=== PATIENT | female | born 1995 | race Caucasian/White ===

== ENCOUNTER 2018-04-02 11:35 | Outpatient (CLI) | payer MEDICAID, SELFPAY ==
--- NOTE | 2018-04-02 11:35 | DT_ITS ---
This patient was seen during an EMR downtime March 28, 2018 - April 04, 2018. This patient may have a combination of paper and electronic documentation or all paper documentation. All documentation is viewable within the e-chart portion of [employer] for each patient visit.
[2018-04-02 12:42] LABS: ROM Internal Control Test YES-OK TO RESULT pt. (Internal QC)
[2018-04-02 12:43] LABS: ROM Patient Test Negative (Negative)
== END 2018-04-02 12:55 | disposition home or self-care (01) ==
LOC: WPOUT 12:17 → WP 12:19
PROVIDERS: Visit Provider Obstetrics & Gynecology
DX: O47.9 False labor, unspecified (principal); Z3A.00 Weeks of gestation of pregnancy not specified
CPT/HCPCS: 59025; 59050; 84112; 99218; G0378

== ENCOUNTER 2018-05-29 17:40 | Inpatient (IN) | payer MEDICAID, SELFPAY ==
[2018-05-29 17:55] VITALS: BMI 28.7
[2018-05-29] MEDS: Lactated Ringers 1,000 ML 50 ML IV (18:05)
[2018-05-29 18:23] LABS: Hematocrit 35.9 % (37-47); Hemoglobin 12.2 g/dl (12.0-15.0); Mean Corpuscular Hgb 30.2 pg (27.0-32.0); Mean Corpuscular Volume 88.9 fL (81-99); Mean Platelet Vol. 11.5 fl (6.2-12.0); Platelet Count 175 K/mm3 (150-450); RBC Distribution Width CV 13.4 % (11.6-14.6); RBC Distribution Width SD 43.6 fl (35.1-43.9); Red Blood Count 4.04 M/mm3 (4.2-5.4); White Blood Count 7.8 K/mm3 (4.4-11.0)
[2018-05-29 18:24] LABS: Scan Indicated on CBC? Y/N NO
--- NOTE | 2018-05-29 19:11 | PCM.HP.OB ---
- Problem List (1) PROM (premature rupture of membranes) Status: Acute Qualifiers: PROM onset of labor timing: onset of labor within 24 hours of rupture PROM gestational age: full term Qualified Code(s): O42.02 - Full-term premature rupture of membranes, onset of labor within 24 hours of rupture History Date of Admission: 05/29/18 Final MEGAN: 06/07/18 Gestational age: 38 Weeks and 5 Days History of this : This is a 22 year-old, G [], P [], at 38 weeks gestational age. Allergies No Known Allergies Allergy (Unverified 05/29/18 17:55) Home Medications: Home Medications Doxylamine Succinate [Unisom] 25 mg PO QHS 05/29/18 Vits [Prenatabs FA ] 1 tab PO DAILY 05/29/18 Smoking Status: Former smoker Alcohol: None Substance Use Type: Marijuana - + tox screen at beginning of , most recent urine tox in 3rd trimester was negative Number of Fetus(es): 1 Heart Tracing: Baseline 140, moderate variability, + accels, no decels TOCO Analysis: Irregular ctx, few mildly palpable q 3-20 minutes History Past Pregnancies: Past Pregnancies Delivery Date Name GA/Weeks Outcome Route Weight Infant Gender Labor Length Anesthesia Delivery Location Provider FOB Labs: A+, Abd Neg, Rubella Immune, Hep B Neg, HIV NR, RPR NR, H/H = 12.5/38.1, GBS POSITIVE, Urine Tox + cannabinoid in 1st trimester--> negative in 3rd trimester, GC/CT = Neg/Neg, urine CCMS = Neg, TSH = 2.370 Expected Delivery Method: Spontaneous Vaginal Describe any other labor & delivery plans:: Possible epidural, patient considering Nitrous Oxide also Number of Visits: 10 Review of Systems Constitutional: Denies: Chills, Fever, Weight Change HEENT: Denies: Head Aches, Sinus Congestion, Sinus Drainage Cardiovascular: Denies: Chest Pain, Palpitations Respiratory: Denies: Cough, Shortness of breath at rest, Sputum production Gastrointestinal: Denies: Abdominal Pain, Nausea, Vomiting Genitourinary: Denies: Dysuria Gynecological: Reports: Vaginal discharge - Reports gush of clear fluid at 5:00pm Musculoskeletal: Denies: Joint Pain, Joint Tenderness Skin: Denies: Rash, Wounds Neurological: Denies: Numbness, Tingling, Focal weakness Psychiatric: Denies: Anxiety, Depression, Homicidal Ideations, Suicidal Ideations Hematologic/ Lymphatic: Denies: Easy Bruising, Easy Bleeding Physical Exam Vitals: See nursing note for vitals - patient is normotensive and afebrile at this time General: Alert, Oriented x3, No apparent distress HEENT: Atraumatic, Normocephalic. Negative for: Thyromegaly, Lymphadenopathy Cardiovascular: Regular rate, Regular Rhythm Lungs: Normal air movement Abdomen: Soft, Non Tender, Gravid - EFW = 7#, likely baby is OP position Neurological: Deep Tendon Reflexes 2+/4 and Symmetrical, Neuro grossly intact SERVICE STATION MANAGER: Normal external genitalia. Negative for: Vulvar lesions Estimated gestational size: Appropriate for gestational size Presentation: Cephalic - No BOW felt on exam Cervix Dilation (cm): 2 Station: -2 Effacement (%): 80 Assessment/Plan All Active Problems PROM (premature rupture of membranes) (Acute) This is a 22 year-old, G [2], P [1], at 38.5 weeks gestational age, PROM, GBS positive status, Category I FHT. P: 1) Admit patient - IV started, admission bloodwork drawn, PCN abx prophylaxis for GBS positive status started 2) Encourage ambulation, shower and position changes to facilitate labor progression 3) Consider initiation of IV pitocin for labor augmentation once adequate 2 doses of PCN abx received 4) Dr. Asif IGLESIAS collaborating OB aware of admission and patient status 5) Anticipate Angeline Dan APRN-CNM
--- NOTE | 2018-05-29 19:22 | HP.PCM_ITS ---
- Problem List (1) PROM (premature rupture of membranes) Status: Acute Qualifiers: PROM onset of labor timing: onset of labor within 24 hours of rupture PROM gestational age: full term Qualified Code(s): O42.02 - Full-term premature rupture of membranes, onset of labor within 24 hours of rupture History Date of Admission: 05/29/18 Final MEGAN: 06/07/18 Gestational age: 38 Weeks and 5 Days History of this : This is a 22 year-old, G [], P [], at 38 weeks gestational age. Allergies No Known Allergies Allergy (Unverified 05/29/18 17:55) Home Medications: Home Medications Doxylamine Succinate [Unisom] 25 mg PO QHS 05/29/18 Vits [Prenatabs FA ] 1 tab PO DAILY 05/29/18 Smoking Status: Former smoker Alcohol: None Substance Use Type: Marijuana - + tox screen at beginning of , most recent urine tox in 3rd trimester was negative Number of Fetus(es): 1 Heart Tracing: Baseline 140, moderate variability, + accels, no decels TOCO Analysis: Irregular ctx, few mildly palpable q 3-20 minutes History Past Pregnancies: Past Pregnancies Delivery Date Name GA/Weeks Outcome Route Weight Infant Gender Labor Length Anesthesia Delivery Location Provider FOB Labs: A+, Abd Neg, Rubella Immune, Hep B Neg, HIV NR, RPR NR, H/H = 12.5/38.1, GBS POSITIVE, Urine Tox + cannabinoid in 1st trimester--> negative in 3rd trimester , GC/CT = Neg/Neg, urine CCMS = Neg, TSH = 2.370 Expected Infant Delivery Method: Spontaneous Vaginal Describe any other labor & delivery plans:: Possible epidural, patient considering Nitrous Oxide also Number of Visits: 10 Review of Systems Constitutional: Denies: Chills, Fever, Weight Change HEENT: Denies: Head Aches, Sinus Congestion, Sinus Drainage Cardiovascular: Denies: Chest Pain, Palpitations Respiratory: Denies: Cough, Shortness of breath at rest, Sputum production Gastrointestinal: Denies: Abdominal Pain, Nausea, Vomiting Genitourinary: Denies: Dysuria Gynecological: Reports: Vaginal discharge - Reports gush of clear fluid at 5: 00pm Musculoskeletal: Denies: Joint Pain, Joint Tenderness Skin: Denies: Rash, Wounds Neurological: Denies: Numbness, Tingling, Focal weakness Psychiatric: Denies: Anxiety, Depression, Homicidal Ideations, Suicidal Ideations Hematologic/ Lymphatic: Denies: Easy Bruising, Easy Bleeding Physical Exam Vitals: See nursing note for vitals - patient is normotensive and afebrile at this time General: Alert, Oriented x3, No apparent distress HEENT: Atraumatic, Normocephalic. Negative for: Thyromegaly, Lymphadenopathy Cardiovascular: Regular rate, Regular Rhythm Lungs: Normal air movement Abdomen: Soft, Non Tender, Gravid - EFW = 7#, likely baby is OP position Neurological: Deep Tendon Reflexes 2+/4 and Symmetrical, Neuro grossly intact CLINICAL ASST: Normal external genitalia. Negative for: Vulvar lesions Estimated gestational size: Appropriate for gestational size Presentation: Cephalic - No BOW felt on exam Cervix Dilation (cm): 2 Station: -2 Effacement (%): 80 Assessment/Plan All Active Problems PROM (premature rupture of membranes) (Acute) This is a 22 year-old, G [2], P [1], at 38.5 weeks gestational age, PROM, GBS positive status, Category I FHT. P: 1) Admit patient - IV started, admission bloodwork drawn, PCN abx prophylaxis for GBS positive status started 2) Encourage ambulation, shower and position changes to facilitate labor progression 3) Consider initiation of IV pitocin for labor augmentation once adequate 2 doses of PCN abx received 4) Dr. Asif IGLESIAS collaborating OB aware of admission and patient status 5) Anticipate Angeline Dan APRN-CNM
--- NOTE | 2018-05-29 23:23 | PCM.PN.OB ---
Patient Problems: Active and Suspected Problems PROM (premature rupture of membranes) (Acute) Subjective: Patient sitting up in bed reporting increase in bloody mucus show; has ambulated and tried shower with slight increase in contraction frequency and strength. Patient requests SVE to see if labor progression has occurred. Patient desires to continue laboring naturally as long as possible. Objective: FHT baseline 130, moderate variability, + accels, no decels Ctx irregular q 2-10 minutes, palpating mild to moderate in strength SVE = 3/80/-2, cervix very posterior, suspect direct OP position, clear amniotic fluid - Physical Exam General: Alert, Oriented x3, Cooperative HEENT: Atraumatic, Normocephalic Neck: Supple Lungs: Normal air movement Cardiovascular: Regular rate, No murmurs Abdomen: Soft, Non Tender Extremities: No edema, Capillary Refill Less than 3 Seconds Skin: No rashes, No breakdown Musculoskeletal: No Tenderness to Palpation of Joints or Extremities Neurological: Cranial nerves II-XII grossly intact Psych/Mental Status: Normal Affect, Appropriate, Alert and oriented to time, place, person, mood and affect Weight: 183 lb 3.266 oz Body Mass Index (BMI) 28.7 Laboratory Tests Past 24 Hrs 05/29/18 05/29/18 18:05 18:05 WBC 7.8 RBC 4.04 L Hgb 12.2 Hct 35.9 L MCV 88.9 MCH 30.2 MCHC 34.0 RDW 13.4 RDW Differential 43.6 Plt Count 175 MPV 11.5 Blood Type A POSITIVE Antibody Screen NEGATIVE Medical Necessity - Tobacco Use Smoking Status: Former smoker Assessment/Plan All Active Problems PROM (premature rupture of membranes) (Acute) A: 22 y/o @ 38.5 wks, PROM x 6 hours, Category I FHT P: 1) Encourage H+K positioning and lunges to encourage descent and rotation of fetus 2) Start IV Pitocin augmentation at this time per protocol until adequate ctx noted 3) Reassess cervix PRN Angeline MAE
[2018-05-29] MEDS: Oxytocin 30 units/NS 500 ml 30 UNITS/500 ML IV.SOLN IV (23:36)
[2018-05-30] MEDS: Ondansetron 4 MG/2 ML Vial IV (01:05)
--- NOTE | 2018-05-30 03:03 | PCM.PN.OB ---
Patient Problems: Active and Suspected Problems PROM (premature rupture of membranes) (Acute) Subjective: Patient sitting in bed with her partner, reports that ctx are much stronger now and occurring very regularly. Partner at bedside providing encouragement and support. Patient has been ambulatory and doing a variety of position changes. Patient using nitrous oxide at this time to help cope with labor contractions. Objective: FHT [id number], moderate variability, +accels, no decels Ctx q 2-3 minutes, lasting 60 seconds, palpate moderate in strength SVE = 3/90/-2, anterior cervix on last exam at 1:30 by Julissa RN - Physical Exam General: Alert, Oriented x3, Cooperative HEENT: Atraumatic, Normocephalic Neck: Supple Lungs: Normal air movement Cardiovascular: Regular rate, No murmurs Abdomen: Soft, Non Tender Extremities: No edema, Capillary Refill Less than 3 Seconds Skin: No rashes, No breakdown Musculoskeletal: No Tenderness to Palpation of Joints or Extremities Neurological: Cranial nerves II-XII grossly intact Psych/Mental Status: Normal Affect, Appropriate, Alert and oriented to time, place, person, mood and affect Weight: 183 lb 3.266 oz Body Mass Index (BMI) 28.7 Laboratory Tests Past 24 Hrs 05/29/18 05/29/18 18:05 18:05 WBC 7.8 RBC 4.04 L Hgb 12.2 Hct 35.9 L MCV 88.9 MCH 30.2 MCHC 34.0 RDW 13.4 RDW Differential 43.6 Plt Count 175 MPV 11.5 Blood Type A POSITIVE Antibody Screen NEGATIVE Medical Necessity - Tobacco Use Smoking Status: Former smoker Assessment/Plan All Active Problems PROM (premature rupture of membranes) (Acute) 22 y/o @ 38.6 weeks, PROM x 10 hours, Category I FHT, Active Labor P: 1) Encourage position changes and movement 2) Anticipate Angeline Dan APRN-SURESH
[2018-05-30] MEDS: Oxytocin 30 units/NS 500 ml 30 UNITS/500 ML IV.SOLN 334 UNITS IV (04:28)
--- NOTE | 2018-05-30 04:46 | PCM.OB.VAG ---
- Problem List (1) PROM (premature rupture of membranes) Status: Resolved Qualifiers: PROM onset of labor timing: onset of labor within 24 hours of rupture PROM gestational age: full term Qualified Code(s): O42.02 - Full-term premature rupture of membranes, onset of labor within 24 hours of rupture Vaginal Delivery Maternal Presentation: Spontaneous Rupture of Membranes Amniotic Membrane Rupture Type: Spontaneous at home Rupture of Membrane time: 05/29/18 @ 1700 Amniotic Fluid Description: Clear Final MEGAN: 06/07/18 Gestational age: 38 Weeks and 6 Days Date of Procedure: 05/30/18 Pre-Operative Diagnosis: PROM @ 38.5 weeks, Pitocin Augmentation Post-Operative Diagnosis: for viable male Surgery/ Procedure Performed: Spontaneous Vaginal Delivery Type of Anesthesia: None Description of Procedure: Patient progressed quickly after initiation of 2 milliunits of pitocin from 5-6cm to 9.5 cm in 1-2 hours. Patient then felt urge to push. Patient pushed well with maternal effort and delivered a viable male over intact perineum at 0417. head delivered OA and restituted to ARLEY then LOT. After delivery of head, loose nuchal cord noted. somersaulted through cord when shoulders and body delivered. Infant then placed on maternal abdomen where mouth and nose bulb suctioned and infant was dried and stimulated. Then infant had spontaneous cry and respirations. Apgars 9 and 9. Umbilical cord clamped and cut once it stopped pulsing by FOB. Placenta then delivered spontaneously via Lim mechanism intact with 3VC. Placental triage remarkable for accessory lobe. IV pitocin per protocol for active management of 3rd stage continued. EBL = 200cc. Upon inspection of vaginal vault no lacerations noted. No repair indicated. Sponge count correct. Vaginal sweep negative. FF midline @ 3FB below umbilicus. Baby to breast, bonding initiated. Angeline Dan BEHAVIORAL HEALTH WORKER-CNM Presentation: Vertex, ARLEY Placental Delivery Description: Spontaneous Placenta Disposition: [facility] Cord Vessel Description: 3 Vessels Nuchal Cord Compression: Without compression Cord Entanglement: Around neck x 1, loose Estimated Blood Loss: 200 Infant A gender: Male (1 minute): 9 (5 minute): 9 Episiotomy Description: None Laceration: None Medications given after delivery: IV Pitocin Complications: None
--- NOTE | 2018-05-30 04:54 | OP.PCM_ITS ---
- Problem List (1) PROM (premature rupture of membranes) Status: Resolved Qualifiers: PROM onset of labor timing: onset of labor within 24 hours of rupture PROM gestational age: full term Qualified Code(s): O42.02 - Full-term premature rupture of membranes, onset of labor within 24 hours of rupture Vaginal Delivery Maternal Presentation: Spontaneous Rupture of Membranes Amniotic Membrane Rupture Type: Spontaneous at home Rupture of Membrane time: 05/29/18 @ 1700 Amniotic Fluid Description: Clear Final MEGAN: 06/07/18 Gestational age: 38 Weeks and 6 Days Date of Procedure: 05/30/18 Pre-Operative Diagnosis: PROM @ 38.5 weeks, Pitocin Augmentation Post-Operative Diagnosis: for viable male Surgery/ Procedure Performed: Spontaneous Vaginal Delivery Type of Anesthesia: None Description of Procedure: Patient progressed quickly after initiation of 2 milliunits of pitocin from 5- 6cm to 9.5 cm in 1-2 hours. Patient then felt urge to push. Patient pushed well with maternal effort and delivered a viable male over intact perineum at 0417. head delivered OA and restituted to ARLEY then LOT. After delivery of head, loose nuchal cord noted. somersaulted through cord when shoulders and body delivered. then placed on maternal abdomen where mouth and nose bulb suctioned and was dried and stimulated. Then had spontaneous cry and respirations. Apgars 9 and 9. Umbilical cord clamped and cut once it stopped pulsing by FOB. Placenta then delivered spontaneously via Lim mechanism intact with 3VC. Placental triage remarkable for accessory lobe. IV pitocin per protocol for active management of 3rd stage continued. EBL = 200cc. Upon inspection of vaginal vault no lacerations noted. No repair indicated. Sponge count correct. Vaginal sweep negative. FF midline @ 3FB below umbilicus. Baby to breast, bonding initiated. Angeline Dan SERVICE CENTER COORDINATOR-CNM Presentation: Vertex, ARLEY Placental Delivery Description: Spontaneous Placenta Disposition: [facility] Cord Vessel Description: 3 Vessels Nuchal Cord Compression: Without compression Cord Entanglement: Around neck x 1, loose Estimated Blood Loss: 200 Infant A gender: Male (1 minute): 9 (5 minute): 9 Episiotomy Description: None Laceration: None Medications given after delivery: IV Pitocin Complications: None
[2018-05-30] MEDS: Oxytocin 30 units/NS 500 ml 30 UNITS/500 ML IV.SOLN 167 UNITS IV (05:00)
--- NOTE | 2018-05-30 05:06 | DCINST_ITS ---
Discharge Diet: No Restrictions Discharge Activity: Return to Normal Activity, May not drive while taking narcotic pain medications., May Shower May resume sexual activity in: 4-6 weeks Additional Activity Instructions:: Nothing in the vagina for 4-6 weeks. You may return to work/school in 6 weeks. Call your doctor if your incision/area has: Continuous Slow Oozing, Sudden Increased Bleeding, Increased Pain/ Swelling, Increased Redness, Foul Smelling Discharge Call your doctor if you observe: Fever of 101 or Higher, Inability to urinate, Inability to have a bowel movement, Using more than one pad per hour Additional Instructions: If you experience any of the following, contact your healthcare provider. * Bleeding that soaks a pad every hour for 2 hours * Fever 100.4 or higher * Unrelieved incision or abdominal pain * Swelling, redness, discharge or bleeding from your incision or episiotomy site * Your incision begins to separate * Problems urinating (including inability to urinate or burning while urinating) . * Visual changes * Severe headache * Flu-like symptoms * Pain or redness in one of both of your breasts * Pain, warmth, tenderness or swelling in your legs, especially the calf area * Frequent nausea and vomiting * Symptoms of depression or anxiety If you experience any of the following, call 911 or go to the nearest Emergency Room. * Chest pain * Problems breathing * Seizure activity * Partial or complete paralysis of a body part, slurred speech, weakness or drooping of the face, or a sudden inability to walk or hold your balance Allergies/Adverse Reactions: Allergies No Known Allergies Allergy (Unverified 05/29/18 17:55) Medications to take at Discharge Vits [Prenatabs FA ] 1 tab PO DAILY 05/29/18 Please Follow Up With: Angeline Dan CNM When: Call to make an appointment with your doctor in 6 weeks. If you had elevated Blood Pressure or 4th degree laceration you will need to be seen in 2 weeks. Primary Care Physician: Care Physician,No Primary [Primary Care Provider] - Test Results: Test results from this visit will be discussed in further detail at your follow- up appointment, if applicable. Proposed Discharge Date: 05/31/18
[2018-05-30] MEDS: Ibuprofen 600 MG Tablet PO ×2 (07:08→12:54)
[2018-05-30] MEDS: Dibucaine 30 GM Tube 1 APPLIC TOPICAL (07:09)
[2018-05-30 09:14] VITALS: BP 103/52; PULSE 75; RESP 16; TEMP 36.7
[2018-05-30] MEDS: Ondansetron 8 MG Tablet 4 MG PO (12:53)
[2018-05-30 13:00] VITALS: BP 122/69; PULSE 81; RESP 16; TEMP 36.1
--- NOTE | 2018-05-30 16:17 | CASEMGMT ---
Social Work Note Labor and Delivery Unit Spoke with retail selling specialist Dr. Pickett today. Social work consult as baby is positive for marijuana in urine. Chart has been reviewed. Plan: Will see mother of baby tomorrow, 8-18, for assessment and determination of referral/resource needs. -DAVID Reaves, MOBILE HEAVY EQUIPMENT OPERATOR
[2018-05-30 16:40] VITALS: BP 104/50; PULSE 54; RESP 16; TEMP 36.2
[2018-05-30 20:00] VITALS: BP 116/67; PULSE 62; RESP 16; TEMP 36.1; O2SAT 100
[2018-05-30 23:51] VITALS: BP 116/72; PULSE 60; RESP 16; TEMP 36.3; O2SAT 99
[2018-05-31 04:05] VITALS: BP 117/71; PULSE 65; RESP 16; TEMP 36.4; O2SAT 97
--- NOTE | 2018-05-31 09:14 | PCM.PN.OB ---
Subjective: Patient sitting up in bed with FOB reporting no issues at this time. Patient notes desire to be discharged to home today; baby may have elevated bilirubin. Unsure if baby will be discharged if the baby's bilirubin is elevated. Patient denies ROSENBAUM, scotoma or dizziness. Denies any issues with urination of ambulation. Objective: Nipples without cracks or blisters Abdomen NT x 4 quadrants, FF midline 2FB below umbilicus Intact perineum Scant Rubra Lochia +2/4 reflexes in LE, negative calf tenderness BL, no edema noted - Physical Exam General: Alert, Oriented x3, Cooperative HEENT: Atraumatic, Normocephalic Neck: Supple Lungs: Normal air movement Cardiovascular: Regular rate, Regular Rhythm, No murmurs Abdomen: Soft, Non Tender Extremities: No edema, Capillary Refill Less than 3 Seconds Skin: No rashes, No breakdown Musculoskeletal: No Tenderness to Palpation of Joints or Extremities Neurological: Cranial nerves II-XII grossly intact, Deep Tendon Reflexes 2+/4 and Symmetrical Psych/Mental Status: Normal Affect, Appropriate, Alert and oriented to time, place, person, mood and affect Vital Signs Temp Pulse Resp BP Pulse Ox 97.5 F L 65 16 117/71 97 05/31/18 04:05 05/31/18 04:05 05/31/18 04:05 05/31/18 04:05 05/31/18 04:05 Oxygen Delivery Method Room Air Weight: 183 lb 3.266 oz Body Mass Index (BMI) 28.7 Intake and Output for Last 24 Hours 05/29/18 05/30/18 05/31/18 23:59 23:59 23:59 Intake Total 1417 / 1417 Output Total 1999 Balance -583 / -583 Medical Necessity - Tobacco Use Smoking Status: Former smoker Assessment/Plan All Active Problems PROM (premature rupture of membranes) (Resolved) A: 22 y/o G2 now P2, PPD #1, s/p without complication, Normal PP Course P: 1) Discharge to home pending discharge 2) Patient plans for Nexplanon insertion when she returns to office for PP visits 3) Anticipatory PP teaching done 4) RTC by 6 weeks PP to [facility]. Angeline Dan APRN-SURESH
[2018-05-31] MEDS: Dibucaine 30 GM Tube 1 APPLIC TOPICAL (10:25)
[2018-05-31] MEDS: Senna/Docusate Sodium 1 Tablet PO (10:32)
[2018-05-31] MEDS: Ibuprofen 600 MG Tablet PO (10:32)
[2018-05-31 11:05] VITALS: BP 124/64; PULSE 84; RESP 16; TEMP 36.6
--- NOTE | 2018-06-07 16:25 | NURSING ---
at follow up phone call states doing well . everyone was great. baby eating well and gaining weight
== END 2018-05-31 11:10 | disposition home or self-care (01) | DRG 373 ==
PROVIDERS: Advanced Practice Midwife; Admitting Provider Obstetrics & Gynecology; Visit Provider Obstetrics & Gynecology
DX: O42.92 Full-term premature rupture of membranes, unspecified as to length of time between rupture and onset of labor (principal); Z3A.38 38 weeks gestation of pregnancy; Z37.0 Single live birth; O99.820 Streptococcus B carrier state complicating pregnancy; O69.81X0 Labor and delivery complicated by cord around neck, without compression, not applicable or unspecified; Z87.891 Personal history of nicotine dependence
CPT/HCPCS: 59025; 59050; 85027; 86850; 86900; 99218; J7120; G0378; J2405

== ENCOUNTER 2018-08-01 13:53 | Emergency (ER) | payer MEDICAID, SELFPAY ==
[2018-08-01 13:54] VITALS: BP 156/97; PULSE 75; RESP 18; TEMP 36.6; O2SAT 98; BMI 21.9
[2018-08-01 14:29] LABS: Amphetamine Urine VISTA NEGATIVE (<1000 ng/mL); Barbiturate Urine VISTA NEGATIVE (< 200 ng/mL); Benzodiazepine Urine VISTA NEGATIVE (< 200 ng/mL); Cocaine Urine VISTA NEGATIVE (< 300 ng/mL); Ecstacy Urine VISTA NEGATIVE (< 500 ng/mL); Methadone Urine VISTA NEGATIVE (< 300 ng/mL); PCP Urine VISTA NEGATIVE (< 25 ng/mL); THC Urine VISTA POSITIVE (< 50 ng/mL); Vista UDS pH Range 6
[2018-08-01 14:38] LABS: Absolute Lymphocyte Count 1.59 X10^3/ul (0.83-4.51); Absolute Neutrophil Count 2.8 X10^3/uL (2.0-7.7); Basophil# 0.02 X10^3/uL; Basophil% 0.4 % (0-1); Eosinophil# 0.21 X10^3/uL; Eosinophils% 4.1 % (0-5); Hematocrit 44.2 % (37-47); Hemoglobin 15.4 g/dl (12.0-15.0); Lymphocyte # 1.59 X10^3/ul (4.0); Lymphocyte % 31.1 % (19-41); Mean Corp Hgb Conc 34.8 g/gl (32-36); Mean Corpuscular Hgb 29.6 pg (27.0-32.0); Mean Platelet Vol. 11.3 fl (6.2-12.0); Monocyte# 0.44 X10^3/uL; Monocyte% 8.6 % (0-10); Neutrophil # 2.84 X10^3/uL (2.7-7.7); Neutrophil % 55.6 % (47-70); Platelet Count 204 K/mm3 (150-450); RBC Distribution Width CV 13.5 % (11.6-14.6); RBC Distribution Width SD 41.9 fl (35.1-43.9); White Blood Count 5.1 K/mm3 (4.4-11.0)
[2018-08-01 14:39] LABS: POSITIVE COUNT NO; POSITIVE DIFFERENTIAL NO; POSITIVE MORPHOLOGY NO
[2018-08-01 14:48] LABS: Anion Gap 11 (5-15); BUN 5 mg/dL (7-18); BUN/Creat Ratio 6.8 RATIO (10-20); Chloride 106 mmol/L (98-107); Creatinine, Serum 0.73 mg/dL (0.55-1.02); EST Glomerular Filtration Rate 105 mL/min (>60); Est Glom Filt Rate - Afr Amer 127 mL/min (>60); Estimated Creatinine Clearance 117.55 ml/min; Glucose 90 mg/dL (74-106); Potassium 3.1 mmol/L (3.5-5.1); Sodium Level 140 mmol/L (136-145)
[2018-08-01 14:54] LABS: Pregnancy, Serum, hCG Quali. NEGATIVE Negative (0-9 Nonpreg)
[2018-08-01] MEDS: LORazepam 1 MG Tablet PO (16:08)
[2018-08-01] MEDS: Ondansetron ODT 4 MG Tablet PO (16:08)
[2018-08-01 16:09] VITALS: PULSE 74; RESP 17; O2SAT 99
--- NOTE | 2018-08-01 16:35 | ED.DCSUM_ITS ---
- ER Visit Summary Date of Service: 08/01/18 Chief Complaint: Depression History of Present Illness: The patient is a 22 F who reports a history of bipolar disorder and PTSD. She states she has not been on medications for several years. She states she has occasional suicidal thoughts but denies these thoughts at present. She states she wants help before it gets to that point again. Physical Examination: Vital signs remarkable for blood pressure 156/97, otherwise unremarkable. Patient is sitting upright in bed no acute distress. Heart is regular rate and rhythm. Lung sounds are clear. Abdomen is soft nontender. Psych evaluation reveals normal speech pattern. She does appear depressed. She denies suicidal ideation currently. Test Results: CBC was normal white count hemoglobin 15.4. Chemistry studies 3.1. Tox screen is positive for cannabinoids. EtOH is negative. Emergency Department Course and Treatment: Patient was given 40 mg of potassium chloride. Patient became very anxious while waiting for the counselor to arrive to speak with her. She was given a dose of Ativan and Zofran. Today from the counseling center presented to speak with her. After just a few moments she stated that she needed to use the restroom and walked out of the room. She told the nurse when she was out of the room that she did not want to speak with him. She continued to deny suicidal ideation. She was given information for follow- up with the counseling center as well as behavioral health. Treatment Plan: [] Disposition: Discharge Impression: 1. Depression 2. Hypokalemia This note was generated with [employer] dictation software. It may contain incorrect words, spelling, and punctuation that were not noted in review of the chart prior to signing ED Disposition - Plan for ED Patient: Disposition: Home or Assisted Living Chief Complaint: Depression Instructions: Treating Bipolar Disorder Referrals: Counseling,Center [GROUP OF PHYSICIANS] - As soon as possible Behavioral,Health [facility] [GROUP OF PHYSICIANS] - As soon as possible
--- NOTE | 2018-08-01 16:36 | DCINST.ED_ITS ---
ED Disposition - Plan for ED Patient: Disposition: Home or Assisted Living Chief Complaint: Depression Instructions: Treating Bipolar Disorder Referrals: Counseling,Center [GROUP OF PHYSICIANS] - As soon as possible Behavioral,Health [facility] [GROUP OF PHYSICIANS] - As soon as possible
--- NOTE | 2018-08-01 16:43 | ED.RN ---
PT WALKS INTO HALLWAY AND REPORTS TO THIS RN THAT SHE WANTS TO LEAVE THE DEPT. PT REPORTS THAT SHE WANTS HER CLOTHES AND WANTS TO LEAVE. WHEN ASKED WHAT HAS THE PT UPSET SHE REPLIES, I SAW A PT OUT THERE WITH THAT TUBE, AND MY MOM WAS LIKE THAT. THE COUNSELOR GWEN IS TAKING A LONG TIME AND I CAN'T SIT IN THERE ANY LONGER. THIS RN PROVIDES PT EMOTIONAL SUPPORT. DR. GASCA AT BEDSIDE TO TALK WITH PT. PT BEGINS TO CALM. MEDICATION GIVEN TO PT ORDERED. COUNSELOR KAPIL AT BEDSIDE TO SPEAK WITH PT. PT DENIES SI. PT EDUCATED ON D/C INSTRUCTIONS AND VERBALIZES UNDERSTANDING. PT REFUSES D/C VITALS. PT EDUCATED TO RETURN TO ED FOR ANY NEW/WORSENED SX. PT DRESSES SELF AND AMBULATES OUT OF DEPT BY SELF.
== END 2018-08-01 16:47 | disposition home or self-care (01) ==
PROVIDERS: Emergency Provider Emergency Medicine
DX: F32.9 Major depressive disorder, single episode, unspecified (principal); E87.6 Hypokalemia; F31.9 Bipolar disorder, unspecified; F43.10 Post-traumatic stress disorder, unspecified; Z87.891 Personal history of nicotine dependence
CPT/HCPCS: 80048; 80307; 80320; 84703; 85025; 99285; G0480

== ENCOUNTER 2018-08-31 18:43 | Emergency (ER) | payer MEDICAID, SELFPAY ==
[2018-08-31 18:47] VITALS: BP 140/93; PULSE 91; RESP 16; TEMP 36.8; O2SAT 98; BMI 22.2
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
[2018-08-31] MEDS: Ziprasidone IM 20 MG/ML VIAL IM (19:21)
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
[2018-08-31 20:35] LABS: Absolute Lymphocyte Count 1.16 X10^3/ul (0.83-4.51); Basophil# 0.02 X10^3/uL; Basophil% 0.2 % (0-1); Eosinophil# 0.13 X10^3/uL; Hematocrit 45.9 % (37-47); Hemoglobin 15.5 g/dl (12.0-15.0); Lymphocyte # 1.16 X10^3/ul (4.0); Mean Corp Hgb Conc 33.8 g/gl (32-36); Mean Corpuscular Hgb 29.2 pg (27.0-32.0); Mean Corpuscular Volume 86.6 fL (81-99); Mean Platelet Vol. 10.1 fl (6.2-12.0); Monocyte# 0.68 X10^3/uL; Monocyte% 5.2 % (0-10); Neutrophil # 10.96 X10^3/uL (2.7-7.7); Neutrophil % 84.5 % (47-70); Platelet Count 250 K/mm3 (150-450); RBC Distribution Width CV 14.7 % (11.6-14.6)
[2018-08-31 20:36] VITALS: RESP 18
[2018-08-31 20:37] LABS: POSITIVE COUNT NO; POSITIVE DIFFERENTIAL NO; POSITIVE MORPHOLOGY NO
[2018-08-31 20:53] LABS: ALB/GLOB Ratio 1.1 RATIO (0.9-2.4); AST(SGOT) 25 U/L (15-37); Alanine Aminotransfer ALT/SGPT 29 U/L (13-56); Albumin, Serum 3.7 g/dL (3.2-5.0); Alkaline Phosphatase 105 U/L (45-117); Anion Gap 14 (5-15); BUN 1 mg/dL (7-18); BUN/Creat Ratio 1.7 RATIO (10-20); Calcium,Total 7.9 mg/dL (8.5-10.1); Chloride 109 mmol/L (98-107); Creatinine, Serum 0.58 mg/dL (0.55-1.02); EST Glomerular Filtration Rate 137 mL/min (>60); Est Glom Filt Rate - Afr Amer 166 mL/min (>60); Estimated Creatinine Clearance 147.95 ml/min; Globulin 3.5 g/dL (2.2-4.2); Glucose 79 mg/dL (74-106); Protein, Total 7.2 g/dL (6.4-8.2); Sodium Level 144 mmol/L (136-145)
[2018-08-31 21:00] VITALS: BP 88/43; PULSE 69; RESP 17; O2SAT 93
[2018-08-31 21:22] LABS: Pregnancy, Serum, hCG Quali. NEGATIVE Negative (0-9 Nonpreg)
[2018-08-31 21:45] VITALS: BP 95/51; PULSE 70; RESP 16; O2SAT 94
[2018-08-31 22:12] VITALS: BP 97/64; PULSE 52; RESP 14; O2SAT 97
[2018-08-31 23:24] VITALS: BP 105/85; PULSE 50; RESP 14; O2SAT 97
--- NOTE | 2018-08-31 23:34 | ED.RN ---
PATIENT AT THIS TIME NOW BILATERAL RESTRAINTS AT THIS TIME. PATIENT HAS LEFT ARM AND RIGHT ANKLE IN LOCKED RESTRAINTS
[2018-09-01] VITALS (15 sets, daily range): BP systolic 96–121; BP diastolic 56–94; PULSE 53–86; RESP 12–18; O2SAT 96–100
[2018-09-01 00:03] LABS: AST(SGOT) 27 U/L (15-37); Alanine Aminotransfer ALT/SGPT 30 U/L (13-56); Albumin, Serum 3.7 g/dL (3.2-5.0); Alkaline Phosphatase 109 U/L (45-117); Bilirubin, Direct 0.12 mg/dL (0.00-0.30); Globulin 3.7 g/dL (2.2-4.2); Potassium 3.9 mmol/L (3.5-5.1); Protein, Total 7.4 g/dL (6.4-8.2)
--- NOTE | 2018-09-01 00:40 | ED.RN ---
Patient removed from restraints at this time
[2018-09-01 00:56] LABS: Glucose, Dipstick Normal (Normal); Ketone-Dipstick Negative (Negative); Leukocyte Esterase-Dipstick 25 /ul (Negative); Nitrite-Dipstick Negative (Negative); Occult Blood-Urine Negative /ul (Negative); Protein-Dipstick 30 mg/dl (Negative); Urine Bilirubin Dipstick Negative (Negative); Urine Urobilinogen Normal (Normal); Urine pH 6.5 (5.0 - 8.0)
[2018-09-01 00:57] LABS: Bacteria 0 SEEN /hpf (None Seen); Mucous, Urine 0 SEEN /hpf (<or=2+); Red Blood Cells-Urine 0 SEEN /hpf (0-5)
[2018-09-01 01:03] LABS: Color, Urine Yellow (Yellow); Urine Clarity Sl Cldy (Clear)
[2018-09-01 01:04] LABS: Squamous Epithelial Cells - UA 0-5 SEEN /hpf (5-10); White Blood Cells 0-5 SEEN /hpf (0-5)
[2018-09-01 01:13] LABS: Amphetamine Urine VISTA NEGATIVE (<1000 ng/mL); Barbiturate Urine VISTA NEGATIVE (< 200 ng/mL); Benzodiazepine Urine VISTA NEGATIVE (< 200 ng/mL); Cocaine Urine VISTA NEGATIVE (< 300 ng/mL); Ecstacy Urine VISTA NEGATIVE (< 500 ng/mL); Methadone Urine VISTA NEGATIVE (< 300 ng/mL); PCP Urine VISTA NEGATIVE (< 25 ng/mL); THC Urine VISTA POSITIVE (< 50 ng/mL); Vista UDS pH Range 7
--- NOTE | 2018-09-01 02:24 | ED.RN ---
JOSE ANTONIO FROM CRISIS IS ON HER WAY TO SEE PT.
--- NOTE | 2018-09-01 02:59 | ED.RN ---
JOSE ANTONIO FROM [facility] IS HERE TO SEE PT.
--- NOTE | 2018-09-01 03:05 | ED.RN ---
crisis here to see patient at this time
[2018-09-01] MEDS: Ondansetron ODT 4 MG Tablet PO (03:43)
--- NOTE | 2018-09-01 07:33 | ED.RN ---
staci from crisis called patient has been denied from [facility] pending acceptance at [facility] at this time
--- NOTE | 2018-09-01 07:34 | ED.RN ---
PT REMAINS CALM AND COOPERATIVE.
--- NOTE | 2018-09-01 08:25 | NURSING ---
PATIENT ACCEPTED AT [facility]. CHICHI SPAIN, ASKED THAT WE SEND A MED LIST. FAX NUMBER [phone]. WILL GET A ROOM LATER
[2018-09-01] MEDS: Ziprasidone IM 20 MG/ML VIAL 10 MG IM (10:52)
[2018-09-01] MEDS: Prenatal Vits Tablet 1 TABLET PO (11:14)
--- NOTE | 2018-09-01 12:33 | ED.RN ---
REPORT GIVEN TO EMILY CHAHAL AT [facility].
--- NOTE | 2018-09-01 13:40 | ED.RN ---
MORE BELONGINGS BROUGHT IN FOR PT. INCLUDING MAKE-UP,TAMPONS,LEGGINGS AND SWEATSHIRTS
== END 2018-09-01 14:08 ==
PROVIDERS: Emergency Provider Emergency Medicine
DX: F10.129 Alcohol abuse with intoxication, unspecified (principal); Y90.9 Presence of alcohol in blood, level not specified; F31.9 Bipolar disorder, unspecified; R45.851 Suicidal ideations; S60.812A Abrasion of left wrist, initial encounter; S60.512A Abrasion of left hand, initial encounter; X78.8XXA Intentional self-harm by other sharp object, initial encounter; Y93.9 Activity, unspecified; Y92.9 Unspecified place or not applicable; Z87.891 Personal history of nicotine dependence
CPT/HCPCS: 36415; 80053; 80076; 80307; 80320; 81001; 84132; 84703; 85025; 96372; 99285; G0480; J3486

== ENCOUNTER 2019-03-04 08:14 | Emergency (ER) | payer SELFPAY ==
[2019-03-04 08:15] VITALS: BP 125/80; PULSE 84; RESP 18; TEMP 36.6; O2SAT 98; BMI 23.9
--- NOTE | 2019-03-04 08:42 | ED.DCSUM_ITS ---
- ER Visit Summary Date of Service: 03/04/19 Chief Complaint: Nausea and vomiting History of Present Illness: The patient is a 23 F presenting with nausea and vomiting. She states this started on Wednesday. She has been unable to keep anything down for last 48 hours. She is 16 weeks . She denies vaginal bleeding or abdominal cramping. She complains of small amount of blood in her urine with dysuria. She is G4, P2 Ab1. Denies other complaints. Physical Examination: Vitals are stable. Patient is afebrile. Alert no acute distress. HEENT exam dry mucous membranes Neck is supple. Lungs are clear and equal bilaterally. Heart is regular rate and rhythm. Abdomen is soft nontender nondistended. No guarding or rebound Extremities are unremarkable. Skin is warm and dry. No focal neurologic deficit. Remainder of exam is unremarkable. Emergency Department Course and Treatment: Patient was given IV fluids, Zofran. Chemistries unremarkable. Urinalysis with 5-10 white blood cells, 0-5 red blood cells. heart tones 152. Urine culture was sent. Blood type A positive. She is able to tolerate p.o. fluids in the emergency department. She is feeling improved. She is given prescription for Keflex and advised to follow-up with Angeline Dan. Advised return to ED for worsening complaints. Disposition: Discharge home Impression: Vomiting in This note was generated with [employer] dictation software. It may contain incorrect words, spelling, and punctuation that were not noted in review of the chart prior to signing ED Disposition - Plan for ED Patient: Referrals: Care Physician,No Primary [Primary Care Provider] -
[2019-03-04] MEDS: Ondansetron 4 MG/2 ML Vial IV (09:02)
[2019-03-04] MEDS: 0.9% Normal Saline 1,000 ML 1000 ML IV ×2 (09:02→10:55)
[2019-03-04 09:27] LABS: Anion Gap 7 (5-15); BUN 7 mg/dL (7-18); BUN/Creat Ratio 12.3 RATIO (10-20); Calcium,Total 8.8 mg/dL (8.5-10.1); Chloride 104 mmol/L (98-107); Creatinine, Serum 0.57 mg/dL (0.55-1.02); EST Glomerular Filtration Rate 140 mL/min (>60); Est Glom Filt Rate - Afr Amer 169 mL/min (>60); Estimated Creatinine Clearance 149.27 ml/min; Glucose 80 mg/dL (74-106); Potassium 3.5 mmol/L (3.5-5.1); Sodium Level 135 mmol/L (136-145)
[2019-03-04 09:34] LABS: Color, Urine Yellow (Yellow); Glucose, Dipstick Normal (Normal); Leukocyte Esterase-Dipstick 100 /ul (Negative); Nitrite-Dipstick Negative (Negative); Occult Blood-Urine 25 /ul (Negative); Protein-Dipstick 30 mg/dl (Negative); Specific Gravity, Urine 1.015 (1.002-1.030); Urine Bilirubin Dipstick Negative (Negative); Urine Clarity Cloudy (Clear); Urine Urobilinogen 1 mg/dl (Normal); Urine pH 6.5 (5.0 - 8.0)
[2019-03-04 09:37] LABS: Ketone-Dipstick 150 mg/dl (Negative)
[2019-03-04 09:51] LABS: Squamous Epithelial Cells - UA 0-5 SEEN /hpf (5-10)
[2019-03-04 09:52] LABS: Mucous, Urine 2+ /hpf (<or=2+)
[2019-03-04 09:53] LABS: Red Blood Cells-Urine 0-5 SEEN /hpf (0-5); White Blood Cells 5-10 SEEN /hpf (0-5)
[2019-03-04 09:54] LABS: Bacteria RARE /hpf (None Seen)
--- NOTE | 2019-03-04 10:14 | DCINST.ED_ITS ---
ED Disposition - Plan for ED Patient: Instructions: ED Nausea Vomiting Prescriptions: Ondansetron [Zofran Odt] 4 mg PO Q8H PRN PRN #10 tablet PRN Reason: Nausea Cephalexin [Keflex] 500 mg PO Q12 #14 capsule Referrals: Angeline Dan CNM [Certified Nurse Plant Operations Coordinator] -
[2019-03-04] MEDS: Cephalexin 250 MG Capsule 500 MG PO (10:55)
[2019-03-04 11:33] VITALS: BP 118/69; PULSE 57; RESP 16; O2SAT 100
== END 2019-03-04 11:36 | disposition short-term general hospital (02) ==
PROVIDERS: Emergency Provider Emergency Medicine
DX: O21.9 Vomiting of pregnancy, unspecified (principal); O26.892 Other specified pregnancy related conditions, second trimester; R30.0 Dysuria; R31.9 Hematuria, unspecified; O99.342 Other mental disorders complicating pregnancy, second trimester; F31.9 Bipolar disorder, unspecified; Z3A.16 16 weeks gestation of pregnancy
CPT/HCPCS: 80048; 81001; 86900; 87077; 87086; 87088; 96361; 96374; 99283; J7030; A4216; J2405

== ENCOUNTER 2019-08-21 12:56 | Inpatient (IN) | payer MEDICAID, SELFPAY ==
--- NOTE | 2019-08-21 13:13 | PCM.HP.OB ---
History Date of Admission: 05/29/18 Final MEGAN: 08/19/19 Final MEGAN Source: US <20 weeks Gestational age: 40 Weeks and 2 Days History of this : This is a 23 year-old, @ 40.2 wks, presented with ROSENBAUM- has since resolved- plan now for IOL due to distance from hospital, non compliance with appointments and Talbot score 9 in multip. pt counseled on risks of IOL- wishes to proceed. Allergies No Known Allergies Allergy (Verified 03/04/19 08:17) Home Medications: Home Medications Vits [Prenatabs FA ] 1 tab PO DAILY 05/29/18 Cephalexin [Keflex] 500 mg PO Q12 #14 capsule 03/04/19 Ondansetron [Zofran Odt] 4 mg PO Q8H PRN PRN #10 tablet 03/04/19 Smoking Status: Never smoker Alcohol: None Substance Use Type: Marijuana Number of Fetus(es): 1 History Past Pregnancies: Past Pregnancies Delivery Date Name GA/Weeks Outcome Route Weight Gender Labor Length Anesthesia Delivery Location Provider FOB Labs: GBS neg, Syphilis neg, Rub imm, A+, HEP B neg, HIV neg, Expected Delivery Method: Spontaneous Vaginal Review of Systems Eyes: Denies: Blurred vision HEENT: Denies: Head Aches Cardiovascular: Denies: Chest Pain Gastrointestinal: Denies: Abdominal Pain Physical Exam General: Alert, Oriented x3 Abdomen: Soft, Non Tender, Gravid Neurological: Cranial nerves II-XII grossly intact HAND INSERTER OPERATOR: Normal external genitalia Estimated gestational size: Appropriate for gestational size Presentation: Cephalic Cervix Dilation (cm): 3 Station: -2 Effacement (%): 70 Assessment/Plan All Active Problems PROM (premature rupture of membranes) (Resolved) This is a 23 year-old, G 3P2 @ 40.2 wks, elective IOL admit to L&D monitor FHR/TOCO anticipate Pitocin and arom epidural if requested
[2019-08-21 13:15] VITALS: BMI 26.5
[2019-08-21] MEDS: Lactated Ringers 1,000 ML 200 ML IV ×2 (13:25→18:36)
[2019-08-21 13:33] LABS: Absolute Lymphocyte Count 1.24 X10^3/uL (0.83-4.51); Absolute Neutrophil Count 6.2 X10^3/uL (2.0-7.7); Basophil# 0.02 X10^3/uL; Basophil% 0.3 % (0-1); Eosinophil# 0.03 X10^3/uL; Eosinophils% 0.4 % (0-5); Hematocrit 38.3 % (37-47); Hemoglobin 12.8 g/dL (12.0-15.0); Lymphocyte # 1.24 X10^3/ul (4.0); Lymphocyte % 15.6 % (19-41); Mean Corp Hgb Conc 33.4 g/dL (32-36); Mean Corpuscular Volume 86.7 fL (81-99); Monocyte# 0.45 X10^3/uL; Monocyte% 5.7 % (0-10); NRBC Flagged by Analyzer 0 % (0-5); Neutrophil # 6.18 X10^3/uL (2.7-7.7); Neutrophil % 77.6 % (47-70); Platelet Count 156 K/mm3 (150-450); RBC Distribution Width CV 13.4 % (11.6-14.6); RBC Distribution Width SD 41.6 fl (35.1-43.9); Red Blood Count 4.42 M/mm3 (4.2-5.4)
[2019-08-21 13:53] LABS: Amphetamine Urine VISTA NEGATIVE (<1000 ng/mL); Barbiturate Urine VISTA NEGATIVE (< 200 ng/mL); Benzodiazepine Urine VISTA NEGATIVE (< 200 ng/mL); Cocaine Urine VISTA NEGATIVE (< 300 ng/mL); Ecstacy Urine VISTA NEGATIVE (< 500 ng/mL); Methadone Urine VISTA NEGATIVE (< 300 ng/mL); PCP Urine VISTA NEGATIVE (< 25 ng/mL); THC Urine VISTA POSITIVE (< 50 ng/mL); Vista UDS pH Range 6
[2019-08-21] MEDS: Oxytocin 30 units/NS 500 ml 30 UNITS/500 ML IV.SOLN IV (14:13)
[2019-08-21] MEDS: Lactated Ringers 500 ML 999 ML IV (14:22)
[2019-08-21] MEDS: Acetaminophen 325 MG Tablet PO (17:05)
[2019-08-21] MEDS: fentaNYL-bupivacaine (epidural) 100 ML BAG EPIDURAL (17:07)
--- NOTE | 2019-08-21 17:19 | PCM.PN.BLA ---
Progress Note She is seen at bedside, doing well. Resting comfortably with epidural in place. Pitocin at 4 milliunits. Vaginal exam /-2.
[2019-08-21] MEDS: Oxytocin 30 units/NS 500 ml 30 UNITS/500 ML IV.SOLN 334 UNITS IV (19:12)
--- NOTE | 2019-08-21 19:21 | PCM.OPRPT ---
Vaginal Delivery Maternal Presentation: Elective Induction Method of Induction: Pitocin, Amniotomy Medical Reason for Induction: - - 40.2 wks gestation, distance from hospital Amniotic Membrane Rupture Type: Artificial Amniotic Fluid Description: Clear Final MEGAN: 08/19/19 Final MEGAN Source: US <20 weeks Gestational age: 40 Weeks and 2 Days Date of Procedure: 08/21/19 Pre-Operative Diagnosis: term gestation Post-Operative Diagnosis: live female infant Surgery/ Procedure Performed: Spontaneous Vaginal Delivery Type of Anesthesia: Epidural Description of Procedure: of live female infant born without complication. Good maternal pushing efforts and gentle downward traction for delivery of anterior shoulder. Presentation: Vertex Placental Delivery Description: Spontaneous Placenta Disposition: [facility] Cord Vessel Description: 3 Vessels Cord Entanglement: None Drain: Tolliver to straight drain Estimated Blood Loss: 100 Infant A gender: Female (1 minute): 8 (5 minute): 9 Episiotomy Description: None Laceration: None Medications given after delivery: IV Pitocin Complications: None
[2019-08-21] MEDS: Ibuprofen 600 MG Tablet PO (20:45)
[2019-08-21] MEDS: 0.9% Saline Lock 10 ML Syringe IV (21:55)
[2019-08-21] MEDS: Zolpidem Tartrate 5 MG Tablet PO (22:22)
[2019-08-21 22:48] VITALS: BP 114/53; PULSE 67; RESP 18; TEMP 36.5
[2019-08-22 03:41] VITALS: BP 116/53; PULSE 67; RESP 16; TEMP 36.4
--- NOTE | 2019-08-22 05:05 | NURSING ---
Taking over pt care at this time.
[2019-08-22 07:25] VITALS: BP 115/67; PULSE 77; RESP 16; TEMP 36.3
[2019-08-22] MEDS: Ibuprofen 600 MG Tablet PO ×2 (07:32→15:38)
[2019-08-22 11:45] VITALS: BP 113/68; PULSE 55; RESP 14; TEMP 36.2
--- NOTE | 2019-08-22 11:55 | NURSING ---
HELEN Zacarias notified that pt answered yes to both questions on the PHQ2. pt given PHQ9 and resource sheet. pt states she feels post depression started prior to delivery. pt is concerned because her psychiatrist took her off her medications, specifically Seroquel, when pt became . pt is concerned about going home without being on medication and is fearful she will not be able to see her psychiatrist for a month.
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
--- NOTE | 2019-08-22 13:23 | DCINST_ITS ---
Discharge Diet: No Restrictions Discharge Activity: May Drive, May Shower May resume sexual activity in: 6 weeks Weight Bearing Status: Weight bearing as tolerated Additional Instructions: If you experience any of the following, contact your healthcare provider. * Bleeding that soaks a pad every hour for 2 hours * Fever 100.4 or higher * Unrelieved incision or abdominal pain * Swelling, redness, discharge or bleeding from your incision or episiotomy site * Your incision begins to separate * Problems urinating (including inability to urinate or burning while urinating). * Visual changes * Severe headache * Flu-like symptoms * Pain or redness in one of both of your breasts * Pain, warmth, tenderness or swelling in your legs, especially the calf area * Frequent nausea and vomiting * Symptoms of depression or anxiety If you experience any of the following, call 911 or go to the nearest Emergency Room. * Chest pain * Problems breathing * Seizure activity * Partial or complete paralysis of a body part, slurred speech, weakness or drooping of the face, or a sudden inability to walk or hold your balance Allergies/Adverse Reactions: Allergies No Known Allergies Allergy (Verified 03/04/19 08:17) Medications to take at Discharge Vits [Prenatabs FA ] 1 tab PO DAILY 05/29/18 Ibuprofen [Motrin] 600 mg PO Q6H PRN PRN #40 tab 08/22/19 The following prescriptions were given: Ibuprofen [Motrin] 600 mg PO Q6H PRN PRN #40 tab PRN Reason: Pain Score 1-3/10 Transmission Status: Pending to [id number] Primary Care Physician: Care Physician,No Primary [Primary Care Provider] - Test Results: Test results from this visit will be discussed in further detail at your follow- up appointment, if applicable.
--- NOTE | 2019-08-22 13:23 | PCM.DCVAG ---
Discharge Diet: No Restrictions Discharge Activity: May Drive, May Shower May resume sexual activity in: 6 weeks Weight Bearing Status: Weight bearing as tolerated Additional Instructions: If you experience any of the following, contact your healthcare provider. Bleeding that soaks a pad every hour for 2 hours Fever 100.4 or higher Unrelieved incision or abdominal pain Swelling, redness, discharge or bleeding from your incision or episiotomy site Your incision begins to separate Problems urinating (including inability to urinate or burning while urinating). Visual changes Severe headache Flu-like symptoms Pain or redness in one of both of your breasts Pain, warmth, tenderness or swelling in your legs, especially the calf area Frequent nausea and vomiting Symptoms of depression or anxiety If you experience any of the following, call 911 or go to the nearest Emergency Room. Chest pain Problems breathing Seizure activity Partial or complete paralysis of a body part, slurred speech, weakness or drooping of the face, or a sudden inability to walk or hold your balance Allergies/Adverse Reactions: Allergies No Known Allergies Allergy (Verified 03/04/19 08:17) Medications to take at Discharge Vits [Prenatabs FA ] 1 tab PO DAILY 05/29/18 Ibuprofen [Motrin] 600 mg PO Q6H PRN PRN #40 tab 08/22/19 The following prescriptions were given: Ibuprofen [Motrin] 600 mg PO Q6H PRN PRN #40 tab PRN Reason: Pain Score 1-3/10 Transmission Status: Pending to [id number] Primary Care Physician: Care Physician,No Primary [Primary Care Provider] - Test Results: Test results from this visit will be discussed in further detail at your follow-up appointment, if applicable.
--- NOTE | 2019-08-22 13:24 | PCM.PN.OB ---
Subjective: No complaints. She is concerned about getting restarted on seroquel as soon as possible. She has been seen at the counseling center in the past and sees a psychiatrist there. - Physical Exam Vitals/I&O's: Vital Signs Temp Pulse Resp BP 97.4 F L 77 16 115/67 08/22/19 07:25 08/22/19 07:25 08/22/19 07:25 08/22/19 07:25 Oxygen Delivery Method Room Air Weight: 169 lb 6.4 oz Body Mass Index (BMI) 26.5 Intake and Output for Last 24 Hours 08/20/19 08/21/19 08/22/19 23:59 23:59 23:59 Intake Total 2128.57 / 2128.57 Output Total 550 / 550 Balance 1578.57 / 1578.57 General: Alert, Oriented x3 Abdomen: Soft, Non Tender, Non-Distended - ff mid & below umb Extremities: No Calf Tenderness Neurological: Cranial nerves II-XII grossly intact Laboratory Results 08/21/19 13:24: WBC 8.0, RBC 4.42, Hgb 12.8, Hct 38.3, MCV 86.7, MCH 29.0, MCHC 33.4, RDW Std Deviation 41.6, RDW Coeff of Steven 13.4, Plt Count 156, MPV 12.0, Immature Gran % (Auto) 0.400, Neut % (Auto) 77.6 H, Lymph % (Auto) 15.6 L, [place] % (Auto) 5.7, Eos % (Auto) 0.4, Baso % (Auto) 0.3, Absolute Neuts (auto) 6.2, Absolute Lymphs (auto) 1.24, Nucleated RBC % 0 08/21/19 13:24: Blood Type A POSITIVE, Antibody Screen NEGATIVE 08/21/19 13:30: Urine Opiates Screen NEGATIVE, Urine Methadone Screen NEGATIVE, Ur Barbiturates Screen NEGATIVE, Ur Phencyclidine Scrn NEGATIVE, Ur Amphetamines Screen NEGATIVE, U Methamphetamin-MDMA NEGATIVE, U Benzodiazepines Scrn NEGATIVE, Urine Cocaine Screen NEGATIVE, U Cannabinoids Screen POSITIVE H, Ur Drug Screen Comment Current Medications Acetaminophen (Tylenol) 1,000 mg PO Q8H PRN PRN PRN Reason: Pain Score 1-3/10 Bisacodyl (Dulcolax) 10 mg RECTAL UD PRN PRN Reason: If no BM Dibucaine (Dibucaine) 1 applic TOPICAL TID PRN PRN; Protocol PRN Reason: Discomfort Hydrocortisone (Hytone) 1 applic TOPICAL TID PRN PRN; Protocol PRN Reason: Discomfort Ibuprofen (Motrin) 600 mg PO Q6H PRN PRN PRN Reason: Pain Score 1-3/10 Last Admin: 08/22/19 07:32 Dose: 600 mg Documented by: Methylergonovine Maleate (Methergine) 0.2 mg IM X1 PRN PRN Reason: Excess bleeding/uterine atony Ondansetron HCl (Zofran) 4 mg IV Q4H PRN PRN PRN Reason: Nausea Senna/Docusate Sodium (Senokot-S, Jody-Colace) 1 - 2 tablet PO DAILY PRN PRN PRN Reason: Constipation Simethicone (Mylicon) 80 mg PO PCHS PRN PRN Reason: Indigestion/Stomach pain Sodium Chloride () 5 - 15 ml IV UD PRN PRN Reason: SALINE FLUSH Last Admin: 08/21/19 21:55 Dose: 10 ml Documented by: Medical Necessity - Tobacco Use Smoking Status: Current every day smoker Assessment/Plan All Active Problems (Last Updated 08/21/19 @ 13:15 by Gracy Clark MD) PROM (premature rupture of membranes) (Resolved) PPD#1 Routine care. Bipolar & PTSD - patient to f/u with psychiatry at counseling center within 1 week. Emani (social work) spoke with counseling center on phone. Patient considering leaving tonight but I recommend she stay. She is OK to leave after 24 hours if she wishes to.
--- NOTE | 2019-08-22 14:10 | CASEMGMT ---
Social Work Labor and Delivery Unit Release of information was signed by MOB to [facility] ([facility]). Called [facility] and spoke with Rola in psychiatric service and learned that MOB has been closed out due to no showing to some appointments. Transferred to the nurse, Saige, so that could find out what medications MOB was previously prescribed. Per conversation with Saige, the patient?s psychiatric provider knew MOB was and that Saige would get MOB?s case opened back up. Saige reports MOB is to call Saige on 08.23.2019 and by then Saige will have MOB's case reopened. Saige is looking at getting MOB in for an appointment on Wednesday08.28.2019. Obtained from Saige what MOB prescribed and dosing for starting back on medications. Provided this information to OBGYN, Dr. Luther. Per conversation with Dr. Luther, recommendation for psychiatric provider to manage multiple psychiatric medications. Called [facility] ([facility]) at [phone]. Spoke with Nicky in the intake screening department. Referral due to substance exposed to marijuana. Other risk factors reported as well including maternal mental health not currently in treatment and family?s history with children services 2 times in the last year. Did report the MOB is voicing receptivity to getting back on track with psychiatric medications. Brief maternal and infant histories provided for continuity of care and assistance in determining whether there is enough concern to screen in referral. Let Nicky know this quality analyst/technical writer will be following up with MOB again today and can check specifically MOB?s response to a referral for substance use counseling and treatment. MOB is hoping to go home today. Per this quality analyst/technical writer?s conversation with OBGYN, the recommendation is for MOB to stay until tomorrow considering risk factors present, to give some MOB more time with support and assurance of getting resources in place. OBGYN did indicate will discharged today however if MOB is intent on this. Updated RN. Plan: Social work to follow. Plan to meet with MOB again. -DAVID Reaves, BIOMASS BOILER OPERATOR
[2019-08-22 15:45] VITALS: BP 125/58; PULSE 55; RESP 16; TEMP 36.1
--- NOTE | 2019-08-22 16:40 | CASEMGMT ---
Social Work Labor and Delivery Unit Summary: Met with MOB, FOB, and baby in room to follow up with resources and mental health referral. FOB holding the baby. MOB agreeable to have conversation with FOB. FOB was present with MOB during depression episode in 2018 and as been MOB?s main support. Mental health follow up: Educated MOB to conversation with [facility]. MOB reports to feel that ?can hold it together? for a week. MOB states understanding of her responsibility to call [facility] tomorrow, as well as intent to do so. FOB voiced that MOB will call. Problem solved with MOB as to what MOB will do if MOB starts to feel emotional health is becoming unmanageable before can see the psychiatrist. MOB reports will call the OBGYN office as this office supported MOB the last time during issues and feels this office can help MOB get some help. Discussed with MOB calling [facility] crisis line or even the crisis line in [facility]. Explored with MOB as to whether MOB wants a referral to mental health center in [facility]. MOB reports desire to start with [facility] due to knowing this agency and ability to get in so quickly for medicine. Substance use and safe plan of care: Explored with MOB her intent about future marijuana usage, just to be clear where MOB stands right now. MOB reports plan to abstain from marijuana use and reports belief that twill not be hard to quit now that MOB is no longer . Address with FOB his intention regarding marijuana use in the home. FOB reports to have history of PTSD stemming from the and that FOB due use marijuana to address PTSD issues. FOB report that while he is in support of MOB taking medicine for emotional health issues, FOB does not support this for himself. As far as safe plan of care for FOB, the FOB reports would go to a friend?s home to use marijuana, would not use in front of any of the children, and would make sure another adult was available to care for the children (to which MOB voiced that would be her). MOB and FOB both confirm that there is no alcohol kept in the home and that FOB has stopped drinking to not trigger MOB into using alcohol. Discharge timeframe: Addressed discharge time frame with MOB. MOB reports would be willing to stay until tomorrow, but that FOB and FOB?s mother both must work tomorrow, so MOB would be at hospital alone with 3 kids until 1500 tomorrow. MOB prefers to take care of her children in own home environment. FODonny?s job is reportedly too new and does not have the luxury of calling off for multiple days. Baby supplies: Addressed with MOB and FOB whether they do have all supplies, and specifically asked about formula. MOB reports to have needed supplies but was hoping the hospital could send formula home with family until able to get into WIC tomorrow. MOB is not yet signed up with [facility] and has to renew services. This technical publications writer looked up sites in [facility] and found hours for tomorrow. Explored with MOB as to whether parent have anyone that can ask for assistance with getting some formula. MOB reports belief that could find someone to help that a food card. This technical publications writer talked with nursing. Obtained some formula for home going. Discussed with MOB that formula given will be enough through most of tomorrow, but that it is very important to work on getting formula. MOB reports there are 2 days until FOB gets paid. Assessment: MOB and FOB both cooperative, pleasant and nondefensive. Appearing willing to work with getting MOB back into mental health treatment. Understand that referral to children services being made. Referrals: Called [facility] ([facility]) after speaking with MOB and FOB again. Called [phone] and spoke with Nicky. Per Nicky referrals is being screened in and a worker will be contacting the family. Updated to plan for discharge this evening. Updated Nicky to MOB?s stated intent to abstain from marijuana and FOB?s response on safe plan of care for himself. Updated to the family appearing to have limited support and finances, and that MOB did not have formula or a way to buy formula at this time. Updated that family has been given formula to get through most of tomorrow but cannot assure what parents will if cannot get [place] to help tomorrow. Nicky noting new information in the referral for worker to follow up on. Plan: MOB and baby to discharge home this evening. [facility] will be following in the community. MOB has been given community resource lists for [facility]. depression packet given, PHQ9 handout given, local and online resources provided. MOB states plan to follow up with [place] on 08.23.2019. MOB states plan to follow up with [facility] on 08.23.2019 to arrange follow up appointment for next week. No other services requested or indicated. -DAVID Reaves, HVAC MAINTENANCE TECHNICIAN
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
[2019-08-22 21:09] VITALS: BP 125/62; PULSE 65; RESP 18; TEMP 36.4
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
== END 2019-08-22 21:40 | disposition home or self-care (01) | DRG 560 ==
LOC: WPOUT 13:12 → WP 13:12 → WPOUT 13:14
PROVIDERS: Admitting Provider Obstetrics & Gynecology; Referring Provider Obstetrics & Gynecology; Visit Provider Obstetrics & Gynecology
DX: O99.344 Other mental disorders complicating childbirth (principal); O99.334 Smoking (tobacco) complicating childbirth; F17.200 Nicotine dependence, unspecified, uncomplicated; Z3A.40 40 weeks gestation of pregnancy; Z37.0 Single live birth; F43.10 Post-traumatic stress disorder, unspecified; F31.9 Bipolar disorder, unspecified; Z91.19 Patient's noncompliance with other medical treatment and regimen
CPT/HCPCS: 59025; 59050; 80307; 85025; 86850; 86900; 86901; 99218; J7120; A4216; G0378

== ENCOUNTER 2020-04-03 16:28 | Emergency (ER) | payer MEDICAID, SELFPAY ==
[2020-04-03 16:29] VITALS: BP 129/90; PULSE 101; RESP 18; TEMP 36.2; O2SAT 98; BMI 22.7
--- NOTE | 2020-04-03 17:10 | ED.DCSUM_ITS ---
- ER Visit Summary Date of Service: 04/03/20 Chief Complaint: Nausea and vomiting History of Present Illness: The patient is a 24 F who reports nausea and vomiting that started this morning. She believes this stems from drinking last night. She drank a total of 8 alcoholic beverages. Her emesis is nonbloody. She feels unwell, but denies abdominal pain, fevers, or any other associated symptoms. She is not currently or breast-feeding. Physical Examination: Afebrile and vital signs unremarkable except for heart rate of 101. The patient appears unwell but not toxic or in distress. She is alert and oriented. Skin is normal in color without jaundice. Abdomen is soft and nontender. Heart is regular. No respiratory distress. Test Results: None performed Emergency Department Course and Treatment: Patient appears unwell but not toxic or in distress. I believe she will improve with fluids and Zofran. Will start there. I advised her that if she is worse or the treatment is not helping, we may need to perform diagnostic testing. Will reassess. Patient tolerated her PO challenge. On reevaluation, she is doing much better. She was discharged with a course of Zofran. Increase fluids. Follow-up with primary care. Treatment Plan: As above Disposition: Discharge Impression: Nausea and vomiting This note was generated with [employer] dictation software. It may contain incorrect words, spelling, and punctuation that were not noted in review of the chart prior to signing ED Disposition - Plan for ED Patient: Referrals: Care Physician,No Primary [Primary Care Provider] -
[2020-04-03] MEDS: 0.9% Normal Saline 1,000 ML 999 ML IV (17:15)
[2020-04-03] MEDS: Ondansetron 4 MG/2 ML Vial IV (17:16)
--- NOTE | 2020-04-03 18:28 | ED.DEP ---
ED Disposition - Plan for ED Patient: Instructions: ED Nausea Vomiting Adult Prescriptions: Ondansetron [Zofran Odt] 4 mg PO Q8H PRN PRN #10 tab PRN Reason: Nausea Prescription Printed Referrals: Brooklynn Dubon [NON-STAFF] -
--- OUTSIDE RECORDS SUMMARY | 2020-08-11 11:19 | XMS RPT_ITS | CCD ---
:1995 External Reference #:[id number] Author Organization [facility] [employer] Care Team Providers Name Role Phone Unavailable Unavailable Unavailable Results Result Name Value Range Unit Interpretation Flag Date Location progress on 2019-12 PROGRESS HNO ID: [id number] Normal 01-09-2020 [facility] Author: Krystian Bonilla ([id number]) Service: ? Author Type: Physician Type: Progress Notes Filed: 01/11/2020 11:19 AM Note Text: Erica Davis is a 24 year old female who presents for Ne xplanon insertion. Patient's last menstrual period was 12/26/2019. VITALS: BP 120/82 Wt 154 lb (69.9kg) LMP 12/26/2019 test: negative Nexplanon lot #: [id number] Exp date: 04/20/22 UNIVERSAL PROTOCOL / SAFETY CHECKLIST Procedure to be performed: Nexplanon Insertion Sign in Communication: Completed Time Out: Team Confirms the Correct Patient, Correct Procedu re, Correct Site and Site Marking, Correct Position (if applicable), Pre p and Dry Time (if applicable). Time: 16:27 Affirmation of Time Out: YES Sign Out Discussion: Completed TECHNIQUE: Patient placed in supine position with right) bent at the el bow and placed over the head. Skin cleansed with betadine. 3mL of 1% lidoca ine with 1:100,000 epi injected subQ along insertion site. Nexplanon olena inserted under sterile technique. The olena was palpable under the skin after insertion and the notch visible on the trochar after inserti on. Steristrips and sterile pressure dressing applied. AANDP: Nexplanon inserted without complications. Patient user card was filled out and given to the patient. The patient was instructed to remove the dressing after 24 h ours. Advised to use backup contraception for 7 days. Krystian Valencia MD cnov on 2020-01-09 CNOV Office Visit ([facility]OO[facility]) Normal 01-09-2020 [facility] ERICA DAVIS ([id number]) 1995 [facility] [place] Time Provider Department ([id number]) 01/09/20 4:20 PM KRYSTIAN VALENCIA During your visit today, we recorded the following informati on about you: Blood pressure Weight Last Period 120/82 69.9 kg 12/26/19 Krystian Valencia MD 01/11/2020 11:19 AM Signed Erica Joaquin Davis is a 24 year old female who presents for Nexplanon insertion. Patient's last menstrual period was 12/26/2019. VITALS: BP 120/82 Wt 154 lb (69.9kg) LMP 12/26/2019 test: negative Nexplanon lot #: [id number] Exp date: 04/20/22 UNIVERSAL PROTOCOL / SAFETY CHECKLIST Procedure to be performed: Nexplanon Insertion Sign in Communication: Completed Time Out: Team Confirms the Correct Patient, Correct P rocedure, Correct Site and Site Marking, Correct Position (if applicable), Prep and Dry Time (if applicable). Time: 16:27 Affirmation of Time Out: YES Sign Out Discussion: Completed TECHNIQUE: Patient placed in supine pos ition with right) bent at the elbow and placed over the head. Skin cleansed with betadine. 3mL of 1% lidocaine with 1:100,000 epi injected subQ along insertion site. Nexplanon olena inserted u nder sterile technique. The olena was palpable under the skin after i nsertion and the notch visible on the trochar after insertion. Steristrips and ster ile pressure dressing applied. AANDP: Nexplanon inserted without complications. Patient user card was filled out and given to the patient. The patient was instructed to remove the dressing after 24 h ours. Advised to use backup contraception for 7 days. MD Cha Burriss Ar 01/09/2020 4:02 PM Signed NEXPLANON PATIENT EDUCATION You may remove dressing in 24 hours. Expect some bruising around insertion site. You may take over the counter pain medication (i.e. Tyleno l, motrin, advil, etc) if you have discomfort. Call your provider with excessive bruising or pain. Continue to use condoms for STD prevention. You should use backup contraception for 7 days to prevent pr egnancy. Referring Provider: KRYSTIAN VALENCIA [[id number]] Allergies As of Date: 01/09/2020 (No Known Allergies) Date Reviewed: 01/09/2020 Reviewed by: Krystian Valencia - Fully Assessed Primary Visit Diagnosis:Nexplanon insertion [Z30.017] Other Visit Diagnosis:Insertion of implantable subdermal con traceptive [Z30.017] Order(s):HCG QUAL UR B/O [[id number]] Order #: [id number] [] etonogestrel subdermal implant 68 mg (NEXPLANON)Di sp: Rfl: Prescriptions as of 01/09/2020 Sig: VENLAFAXINE ER 150 MG CAPSULE* TAKE 1 CAPSULE BY MOUTH ONCE * QUETIAPINE 25 MG TABLET Take 25 mg by mouth twice keila* CLONAZEPAM 0.5 MG TABLET Take 1 tablet by mouth twice * IBUPROFEN 600 MG TABLET TAKE 1 TABLET BY MOUTH EVERY * VITAMINS WITH CALCIU* Take 1 tablet by mouth once d * Problem List As Of Date 01/09/2020 Noted Resolved Bleeding in early [O20.9] 2017 11/12/2017 More... Quit smoking [Z87.891] 2017 More... History of thyroid disorder [Z86.39] 2017 More... Patient requested diagnostic testing [Z01.89] 10/11/201703/2019 More... Atypical squamous cell changes of undetermined *11/12/2017 More... Normal in first trimester [Z34.91] 11/29/201711/26 High risk due to maternal drug abuse,*11/29/2017 0 12/15/2018 More... Positive GBS test [B95.1] 05/13/2018 12/15/2018 Short interval between pregnancies affecting pr*12/08/2018 More... History of bipolar disorder [Z86.59] 12/08/2018 More... Marijuana use [F12.90] 07/25/2019 More... 40 weeks gestation of [Z3A.40] 08/19/2019 More... Intact amniotic membranes [Z34.90] 08/19/2019 Threatened labor at term [O47.9] 08/19/2019 Other instructions from your clinician: NEXPLANON PATIENT EDUCATION You may remove dressing in 24 hours. Expect some bruising around insertion site. You may take over the counter pain medication (i.e. Tylenol, motrin, advil, etc) if you have discomfort. Call your provider with excessive bruising or pain. Continue to use condoms for STD prevention. You should use backup contraception for 7 days to prevent pr egnancy. Prescriptions ordered this encounter Disp Refills Start End ETONOGESTREL 68 MG SUBDERMAL IMPLANT 01/09/2020 01/09/2020 Route: SDRM ETONOGESTREL 68 MG SUBDERMAL IMPLANT 1 Ea* 0 01/09/202012/23 Class: In Office Route: SDRM Si Each by SUBDERMAL route as directed. Medications Discontinued During This Encounter etonogestrel (NEXPLANON) subdermal i* 1 Ea* 0 01/09/202001/08 Class: In Office Route: SUBDERMAL Si Each by SUBDERMAL route as directed. Disc: Reason for discontinue is not on file. Encounter Status:Closed by KRYSTIAN VALENCIA MD on 01/11/20 progress on 2019-12 PROGRESS HNO ID: [id number] Normal 12-26-2019 [facility] Author: Krystian Valencia Bonilla ([id number]) Service: ? Author Type: Physician Type: Progress Notes Filed: 12/26/2019 2:49 PM Note Text: Erica Davis is a 24 year old female who presents for co ncerns. HPI: Patient presents with concerns. LMP was 10/25/19. Menses have not been regular since last delivery (4 months ago). She would l angus to start control. Currently she is sexually active AND not usin g anything. PAST MEDICAL HISTORY Diagnosis Date - Anemia - Anxiety disorder - Atypical squamous cell changes of undetermined significanc e (ASCUS) on cervical cytology with positive high risk human papilloma vi rachel (HPV) 11/12/2017 - Bipolar 1 disorder (HCC) - Depression - NEGATIVE MEDICAL HISTORY - Nexplanon insertion 2018 - depression - Psychiatric disorder - PTSD (post-traumatic stress disorder) - Thyroid disease PAST SURGICAL HISTORY Procedure Laterality Date - EXTRACTION, ERUPTED TOOTH OR EXPOSED ROOT (ELEVATION AND/O R FORCEPS REMOVAL) - PAST SURGICAL HISTORY OF wisdom teeth FAMILY HISTORY Problem Relation Age of Onset - Drug abuse Mother - Heart Mother - No Known Problems Sister - No Known Problems Brother - Cancer Maternal Grandmother - No Known Problems Daughter - No Known Problems Son Social History Tobacco Use - Smoking status: Current Every Day Smoker Packs/day: 1.00 - Smokeless tobacco: Never Used Substance Use Topics - Alcohol use: Yes Comment: occ, not while - Drug use: No Current Outpatient Medications Medication Sig - venlafaxine ER (EFFEXOR XR) 150 mg 24 hr capsule TAKE 1 CA PSULE BY MOUTH ONCE DAILY WITH A MEAL - QUEtiapine (SEROQUEL) 25 mg tablet Take 25 mg by mouth twi ce daily. - clonazePAM (KLONOPIN) 0.5 mg tablet Take 1 tablet by mouth twice daily as needed (anxiety). - ibuprofen (MOTRIN) 600 mg tablet TAKE 1 TABLET BY MOUTH EV FERN 6 HOURS NEEDED FOR PAIN SCORE 1 3 10 - Vitamin with 29 mg Iron ( PLUS) 29 mg iro n- 1 mg Take 1 tablet by mouth once daily. No current facility-administered medications for this visit. Allergies As of Date: 12/26/2019 (No Known Allergies) Fully Assessed 12/26/2019 REVIEW OF SYSTEMS Expanded ROS: GENERAL: No weight loss, malaise or fevers Allergies and current medication updated:Yes EXAM: BP 116/72 Wt 154 lb (69.9kg) LMP 10/25/2019 GENERAL: pleasant, female in no apparent distress CHEST: Normal inspiratory effort ABDOMEN: soft, non-tender and no masses ASSESSMENT AND PLAN: 24yo female for control Urine hcg negative Discussed R/B/A of control. Patient wishes to proceed with nexplanon. F/u 2 weeks. Patient will abstain or use condoms until nexplanon placed. MD tory Burris on 2019-12-26 CNOV Office Visit ([facility]OO[facility]) Normal 12-26-2019 [facility] ERICA DAVIS ([id number]) 1995 [facility] Date Time Provider Department ([id number]) 12/26/19 2:30 PM KRYSTIAN VALENCIA During your visit today, we recorded the following informati on about you: Blood pressure Weight Last Period 116/72 69.9 kg 10/25/19 Krystian Valencia MD 12/26/2019 2:49 PM Signed Erica Joaquin Cortez is a 24 year old female who presents for co ncerns. HPI: Patient presents with concerns. LMP was 10/25/19. Menses have not been regular since last delivery (4 months ago). She would like t o start control. Currently she is sexually active AND not using anyt lilliana. PAST MEDICAL HISTORY Diagnosis Date - Anemia - Anxiety disorder - Atypical squamous cell changes of undetermined significanc e (ASCUS) on cervical cytology with posit sharon high risk human papilloma virus (HPV) 11/12/2017 - Bipolar 1 disorder (HCC) - Depression - NEGATIVE MEDICAL HISTORY - Nexplanon insertion 2018 - depression - Psychiatric disorder - PTSD (post-traumatic stress disorder) - Thyroid disease PAST SURGICAL HISTORY Procedure Laterality Date - EXTRACTION, ERUPTED TOOTH OR EXPOSED R OOT (ELEVATION AND/OR FORCEPS REMOVAL) - PAST SURGICAL HISTORY OF wisdom teeth FAMILY HISTORY Problem Relation Age of Onset - Drug abuse Mother - Heart Mother - No Known Problems Sister - No Known Problems Brother - Cancer Maternal Grandmother - No Known Problems Daughter - No Known Problems Son Social History Tobacco Use - Smoking status: Current Every Day Smoker Packs/day: 1.00 - Smokeless tobacco: Never Used Substance Use Topics - Alcohol use: Yes Comment: occ, not while - Drug use: No Current Outpatient Medications Medication Sig - venlafaxine ER (EFFEXOR XR ) 150 mg 24 hr capsule TAKE 1 CAPSULE BY MOUTH ONCE DAILY WITH A MEAL - QUEtiapine (SEROQUEL) 25 mg tablet Take 25 mg by mouth twi ce daily. - clonazePAM (KLONOPIN) 0.5 mg tablet Take 1 tablet by twice daily as needed (anxiety). - ibuprofen (MOTRIN) 600 mg tablet TAKE 1 TABLET BY MOUTH EV FERN 6 HOURS NEEDED FOR PAIN SCORE 1 3 10 - Vitamin with 29 mg Iron ( PLUS) 29 mg iro n- 1 mg Take 1 tablet by mouth once daily. No current facility-administered medications for this visit. Allergies As of Date: 12/26/2019 (No Known Allergies) Fully Assessed 12/26/2019 REVIEW OF SYSTEMS Expanded ROS: GENERAL: No weight loss, malaise or fevers Allergies and current medication updated:Yes EXAM: BP 116/72 Wt 154 lb (69.9kg) LMP 10/25/2019 GENERAL: pleasant, female in no apparent distress CHEST: Normal inspiratory effort ABDOMEN: soft, non-tender and no masses ASSESSMENT AND PLAN: 24yo female for control Urine hcg negative Discussed R/B/A of control. Patient wishes to procee d with nexplanon. F/u 2 weeks. Patient will abstain or use condoms until nexpl anon placed. Krystian Valencia MD Referring Provider: SELF [[id number]] Allergies As of Date: 12/26/2019 (No Known Allergies) Date Reviewed: 12/26/2019 Reviewed by: Krystian Valencia - Fully Assessed Reason for Visit: Contraception [26] Primary Visit Diagnosis:Missed menses [N92.6] Other Visit Diagnosis: control counseling [Z30.09] Order(s):HCG QUAL UR B/O [[id number]] Order #: [id number] NEXPLANON INSERTION [[id number]] Order #: [id number] Prescriptions as of 12/26/2019 Sig: VENLAFAXINE ER 150 MG CAPSULE* TAKE 1 CAPSULE BY MOUTH ONCE * QUETIAPINE 25 MG TABLET Take 25 mg by mouth twice keila* CLONAZEPAM 0.5 MG TABLET Take 1 tablet by mouth twice * IBUPROFEN 600 MG TABLET TAKE 1 TABLET BY MOUTH EVERY * VITAMINS WITH CALCIU* Take 1 tablet by mouth once d * Problem List As Of Date 12/26/2019 Noted Resolved Bleeding in early [O20.9] 2017 11/12/2017 More... Quit smoking [Z87.891] 2017 More... History of thyroid disorder [Z86.39] 2017 More... Patient requested diagnostic testing [Z01.89] 10/11/201703/2019 More... Atypical squamous cell changes of undetermined *11/12/2017 More... Normal in first trimester [Z34.91] 11/29/201711/26 High risk due to maternal drug abuse,*11/29/2017 0 12/15/2018 More... Positive GBS test [B95.1] 05/13/2018 12/15/2018 Short interval between pregnancies affecting pr*12/08/2018 More... History of bipolar disorder [Z86.59] 12/08/2018 More... Marijuana use [F12.90] 07/25/2019 More... 40 weeks gestation of [Z3A.40] 08/19/2019 More... Intact amniotic membranes [Z34.90] 08/19/2019 Threatened labor at term [O47.9] 08/19/2019 Encounter Status:Closed by KRYSTIAN VALENCIA MD on 12/26/19 progress on 2019-12 PROGRESS HNO ID: [id number] Normal 12-25-2019 [facility] Author: Celeste [id number] Service: ? Author Type: Nurse Practitioner Type: Progress Notes Filed: 12/25/2019 6:09 PM Note Text: Subjective HPI Erica Davis is a 24 year old female who presents wi th need for suture removal right wrist. She had 12 sutures placed in rig ht wrist in [place], [place] ER 7 days ago. Wound is healing well, she denie s pain, fever, or drainage from wound. Review of Systems Constitutional: Negative. Negative for fever. Skin: Negative. Negative for itching and rash. BP 122/80 Pulse 96 Temp 36.3 ?C (97.4 ?F) (Tympanic) R guera 18 Wt 70 kg (154 lb 6.4 oz) SpO2 98% BMI 24.18 kg/m? PAST MEDICAL HISTORY Diagnosis Date - Anemia - Anxiety disorder - Atypical squamous cell changes of undetermined significanc e (ASCUS) on cervical cytology with positive high risk human papilloma vi rachel (HPV) 11/12/2017 - Bipolar 1 disorder (HCC) - Depression - NEGATIVE MEDICAL HISTORY - Nexplanon insertion 2018 - depression - Psychiatric disorder - PTSD (post-traumatic stress disorder) - Thyroid disease PAST SURGICAL HISTORY Procedure Laterality Date - EXTRACTION, ERUPTED TOOTH OR EXPOSED ROOT (ELEVATION AND/O R FORCEPS REMOVAL) - PAST SURGICAL HISTORY OF wisdom teeth ALLERGIES Patient has no known allergies. MEDICATIONS venlafaxine ER (EFFEXOR XR) 150 mg 24 hr capsule TAKE 1 CAPS ULE BY MOUTH ONCE DAILY WITH A MEAL QUEtiapine (SEROQUEL) 25 mg tablet Take 25 mg by mouth twice daily. clonazePAM (KLONOPIN) 0.5 mg tablet Take 1 tablet by mouth t wice daily as needed (anxiety). ibuprofen (MOTRIN) 600 mg tablet TAKE 1 TABLET BY MOUTH EVER Y 6 HOURS NEEDED FOR PAIN SCORE 1 3 10 Vitamin with 29 mg Iron ( PLUS) 29 mg iron- 1 mg Take 1 tablet by mouth once daily. FAMILY HISTORY Problem Relation Age of Onset - Drug abuse Mother - Heart Mother - No Known Problems Sister - No Known Problems Brother - Cancer Maternal Grandmother - No Known Problems Daughter - No Known Problems Son Social History Tobacco Use - Smoking status: Former Smoker Years: 6.00 Last attempt to quit: 09/04/2017 Years since quittin.3 - Smokeless tobacco: Never Used Substance Use Topics - Alcohol use: Yes Comment: occ, not while - Drug use: No Objective Physical Exam Constitutional: She is well-developed, well-nourished, and i n no distress. Musculoskeletal: Arms: Neurological: She is alert. Skin: Skin is warm and dry. No rash noted. No erythema. Nursing note and vitals reviewed. ASSESSMENT/PLAN: 1. Encounter for removal of sutures - ICD9: V58.32, ICD10: Z 48.02 - reviewed skin care instructions with patient. - Discussed red flags and need for immediate medical evaluat ion if any occur. Celeste Bourne APRN.SOFIA spears on 2019-12-25 CNOV [facility] Normal 12-25-19 [address] [place] ERICA Land ([id number]) 1995 [place] Date Time Provider Department ([id number]) 12/25/19 5:30 PM CELESTE BOURNE (SOFIA) [facility] During your visit today, we recorded the following informati on about you: Temperature Pulse Respiration Blood pressure 97.4 degrees 96/minute 18/minute 122/80 Weight 70 kg Celeste Bourne APRN.CNP 12/25/2019 6:09 PM Signed Subjective HPI Erica Davis is a 24 year old fe male who presents with need for suture removal right wrist. She had 12 sutures placed i n right wrist in [place], [place] ER 7 days ago. Wound is healing well, sh e denies pain, fever, or drainage from wound. Review of Systems Constitutional: Negative. Negative for fever. Skin: Negative. Negative for itching and rash. BP 122/80 Pulse 96 Temp 36.3 ?C (97.4 ?F) (Tympanic) R guera 18 Wt 70 kg (154 lb 6.4 oz) SpO2 98% BMI 24.18 kg/m? PAST MEDICAL HISTORY Diagnosis Date - Anemia - Anxiety disorder - Atypical squamous cell changes of undetermined significanc e (ASCUS) on cervical cytology with posit sharon high risk human papilloma virus (HPV) 11/12/2017 - Bipolar 1 disorder (HCC) - Depression - NEGATIVE MEDICAL HISTORY - Nexplanon insertion 2018 - depression - Psychiatric disorder - PTSD (post-traumatic stress disorder) - Thyroid disease PAST SURGICAL HISTORY Procedure Laterality Date - EXTRACTION, ERUPTED TOOTH OR EXPOSED R OOT (ELEVATION AND/OR FORCEPS REMOVAL) - PAST SURGICAL HISTORY OF wisdom teeth ALLERGIES Patient has no known allergies. MEDICATIONS venlafaxine ER (EFFEXOR XR) 150 mg 24 hr capsule TAKE 1 CAPSULE BY MOUTH ONCE DAILY WITH A MEAL QUEtiapine (SEROQUEL) 25 mg tablet Take 25 mg by mouth twice daily. clonazePAM (KLONOPIN) 0.5 mg tablet Take 1 tablet by mouth t wice daily as needed (anxiety). ibuprofen (MOTRIN) 600 mg ta blet TAKE 1 TABLET BY MOUTH EVERY 6 HOURS NEEDED FOR PAIN SCORE 1 3 10 Vitamin with 29 mg Iron ( PLUS) 29 mg iron- 1 mg Take 1 tablet by mouth once daily. FAMILY HISTORY Problem Relation Age of Onset - Drug abuse Mother - Heart Mother - No Known Problems Sister - No Known Problems Brother - Cancer Maternal Grandmother - No Known Problems Daughter - No Known Problems Son Social History Tobacco Use - Smoking status: Former Smoker Years: 6.00 Last attempt to quit: 09/04/2017 Years since quittin.3 - Smokeless tobacco: Never Used Substance Use Topics - Alcohol use: Yes Comment: occ, not while - Drug use: No Objective Physical Exam Constitutional: She is well-developed, well-nourished, and i n no distress. Musculoskeletal: Arms: Neurological: She is alert. Skin: Skin is warm and dry. No rash noted. No erythema. Nursing note and vitals reviewed. ASSESSMENT/PLAN: 1. Encounter for removal of sutures - ICD9: V58.32, ICD10: Z 48.02 - reviewed skin care instructions with patient. - Discussed red flags and need for immediate med ical evaluation if any occur. Celeste Bourne APRN.PUL[employer]ER [employer]EDER Referring Provider: SELF [[id number]] Allergies As of Date: 12/25/2019 (No Known Allergies) Date Reviewed: 12/25/2019 Reviewed by: Celeste (Accounting Machine Mechanic) Tayla - Fully Assessed Reason for Visit: Suture Removal [105] Cmt: suture removal x 12 right wr ist placed by [facility] 7 days ago Primary Visit Diagnosis:Encounter for removal of sutures [Z4 8.02] Prescriptions as of 12/25/2019 Sig: VENLAFAXINE ER 150 MG CAPSULE* TAKE 1 CAPSULE BY MOUTH ONCE * QUETIAPINE 25 MG TABLET Take 25 mg by mouth twice keila* CLONAZEPAM 0.5 MG TABLET Take 1 tablet by mouth twice * IBUPROFEN 600 MG TABLET TAKE 1 TABLET BY MOUTH EVERY * VITAMINS WITH CALCIU* Take 1 tablet by mouth once d * Problem List As Of Date 12/25/2019 Noted Resolved Bleeding in early [O20.9] 2017 11/12/2017 More... Quit smoking [Z87.891] 2017 More... History of thyroid disorder [Z86.39] 2017 More... Patient requested diagnostic testing [Z01.89] 10/11/201703/2019 More... Atypical squamous cell changes of undetermined *11/12/2017 More... Normal in first trimester [Z34.91] 11/29/201711/26 High risk due to maternal drug abuse,*11/29/2017 0 12/15/2018 More... Positive GBS test [B95.1] 05/13/2018 12/15/2018 Short interval between pregnancies affecting pr*12/08/2018 More... History of bipolar disorder [Z86.59] 12/08/2018 More... Marijuana use [F12.90] 07/25/2019 More... 40 weeks gestation of [Z3A.40] 08/19/2019 More... Intact amniotic membranes [Z34.90] 08/19/2019 Threatened labor at term [O47.9] 08/19/2019 Encounter Status:Closed by CELESTE BOURNE on 12/25/19 [facility] on 12-18 [facility] Normal 12-18-[address] [facility] Emergency Department Discharge Instructions ([id number]) ERICA DAVIS, Please prov mallory this information to your Primary Care/Specialist Name: BELKISREINAERICA Current Date : 12/18/2019 03:07:10 : 1995 Primary Care Physician: Physician, PCP Unkno wn Diagnosis : Follow-Up Instructions: TIERRA DAVISBY has been given these follow-up instructions: Laboratory Orders: Name: Status: CBC with Differential Completed Comprehensive Metabolic Panel Completed Alcohol (Ethanol) Level Completed Drug Abuse Screen 8 Urine Completed Salicylate Level Completed Acetaminophen (Tylenol) Level Completed HCG Qualitative Completed GFRaa Completed GFRbb Completed Magnesium Level Completed Radiology Orders: None Ordered Diagnostic Tests: None Ordered Procedure(s) and Patient Education(s) : EMERGENCY SERVICES MEDICATION LIST Lista de Medicaciones de los Servicios de Emergencia Name ERICA DAVIS MRN ([facility])-[id number] Acct# PLEASE READ THE FOLLOWING REGARDING YOUR MEDICATIONS Based on the information saw ilable during your visit we have given you the medication instructions below. Continue taking medications you took prior to your visit unless you have been told to change. Pl ease share this information with your own doctor. Carry a list of your medications with you in case of an emergency. Update it when medications are stopped, doses are changed, or new medications (includ ing oyzr-gpd-sgbnqhy product s) are added. If you have any questions, check with your doctor. Por la informaci??n disponib le talisha dunaway visita, las instrucciones de medicaci??n aparecen debajo. Favor de continuar tomando las medicaciones Ud. jamia?? antes de dunaway visita por lo menos que hay cambios. Favor de compartir esta inf ormaci??n con dunaway medico. Lleva katie lista de medicaciones consigo por pepe de emergenc??a. Actualiza la lista cuando Ud. robbi de zenon las medicaciones, si cambian las dosis, o si hay nuevas medicaciones a??adidas (incluyendo medicaciones vendidas sin prescripci??n). Favor de preguntar a dunaway medico por cualquier jimbo. THESE ARE THE MEDICATIONS YOU SHOULD BE TAKING ClonazePAM (clonazePAM 0.5 m g oral tablet) 1 Tab(s) By Mouth Twice a day as needed Anxiety. HydrOXYzine (hydrOXYzine maddi oate 25 mg oral capsule) 1 Capsule By Mouth Twice a day as needed as needed for anxiety. prazosin (prazosin 1 mg oral capsule) 1 Capsule By Mouth Bed time. QUEtiapine (QUEtiapine 25 mg oral tablet) 1 Tab(s) By Mouth Twice a day. venlafaxine (venlafaxine 150 mg oral capsule, extended release) 1 Capsule By Mouth once a day. MEDICATIONS GIVEN DURING MEDICAL VISIT EPINEPHrine/lidocaine/tetrac david topical 1 Appl last dose given on 12/17/2019 at 06:19 Route: Topical lorazepam 1 mg last dose given on 12/17/2019 at 10:10 Route: By Mouth lidocaine 10 mg last dose gi ailyn on 12/17/2019 at 10:11 Route: Miscellaneous-See Comment Total Volume = 100 mL Sodium Chloride 0.9% 100 mL last dose given on 12/17/2019 at 10:11 Route: Miscellaneous-See Comment ibuprofen 600 mg last dose given on 12/17/2019 at 17:03 Rout e: By Mouth Maximum of 3200 mg / 24 hr acetaminophen 975 mg last dose given on 12/17/2019 at 17:0 3 Route: By Mouth Maximum 4 Gm Acetaminophen/Day for Adults prazosin 1 mg last dose given on 12/17/2019 at 21:50 Route: By Mouth May Cause Orthostatic Hypotension quetiapine 25 mg last dose given on 12/17/2019 at 21:50 Rout e: By Mouth TUBE 26 - ED10 pls thanks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 Service: ? Author Type: Physician Type: Progress Notes Filed: 07/24/2019 10:19 AM Note Text: NST SUMMARY PROVIDER ASSESSMENT AND INTERPRETATION Erica Davis is a 23 year old female, , who is at 36w2d with an MEGAN of 08/19/2019, by Ultrasound dating method. Indications for NST: Decreased Movement Baseline: 125 Variability: Moderate Accelerations: Present 15 X 15 Decelerations: None Contractions: TOCO: None Interpretation: Category I and Reactive SIGNATURE: Gracy Clark MD group b strep pcr o n 2019-07-24 GROUP B STREP PCR Negative for Group B Normal 0 07-24-2019 [facility] Streptococcus by PCR. [place] ([id number]) Comment: Performed By: #### CBC, TSH, HCGQT, HBSAG, HIV12C, SYPHGX, RUBIGG #### [facility] [address] [place], [place] [address] cnco on 2019-04-26 CNCO Letter Text Normal 04-26-2019 [facility] ([id number]) progress on 2019-03 PROGRESS HNO ID: [id number] Normal 03-30-2019 [facility] Author: Biju Chinchilla [place] ([id number]) Service: ? Author Type: Physician Type: Progress Notes Filed: 03/30/2019 12:34 PM Note Text: A giordano? fetus in utero with symmetric measurements Adequate growth (AGA). Estimated Date of Delivery: 08/19/19 EGA = 19w5d The anatomy appears normal. There are no evident malfo rmations and /or effusions. No genetic markers are noted. The amniotic fluid volume is within normal limits. The sensitivity of ultrasound in the detection of malformati ons overall is approximately 35%. RECOMMENDATIONS: - Follow up ultrasound as clinically indicated urine culture on 12-03-09 Bacteria Sp. Request/Comment: - Specimen received in preservative Critically 03-02-2019 [place] identified Cx Culture Result - >=100,000 C FU/ml Staphylococcus saprophyticus --> ABNORMAL ALERT Routine testing of urine isolates of Staphylococcus saprophyticus is not recommended by the National Committee for abnormal Clinic Nom (U) Clinical Laboratory Standar ds for acute, uncomplicated urinary tract infections. This organism responds to antimicrobial drug concentrations achieved in urine of commonly used antibiotics (i.e. nitrofu Bonilla rantoin, trimethoprim with and without s ulfamethoxazole, or a fluroquinolone). ([id number]) Comment: Performed By: #### URCUL ### # [facility] [address] [place], [place] [address] type and scr,prenatl on 2019-03-02 ABO/RH(D) A POSITIVE Normal 03-02-2019 [facility] ([id number]) Comment: Performed By: #### TSPN #### [facility] [address] [place] [address] tsh on 2019-03-02 TSH Qn 1.920 0.400-5.500 uU/mL Normal 03-02-2019 [facility] ([id number]) Comment: Result Comment: If the patie nt is , TSH reference range varies by gestational period: First Trimester 0.100-2.500 uU/mL Second Trimester 0.200-3.000 uU/mL Third Trimester 0.300-3.000 uU/mL References: 1. Vazquez L, A jacklyn M, Misha EK, et al. Management of Thyroid Dysfunction during and : An Endocrine Society Clinical Practice Guideline. J Clin Endocrinol Metab, 2012:97:0480-3117. 2. Oracio ALVAREZ. Overview of thyroid disease in . UpToDate. 2016. Accessed on April 10, 2016. Performed By: #### CBC, TSH, HCGQT, HBSAG, HIV12C, SYPHGX, RUBIGG #### [facility] [address] [place] [address] syphilis igg with conf on 2019-03-02 Syphilis IgG <0.2 Normal 03-02-2019 [facility] ([id number]) Comment: Result Comment: Antibody ind ex is interpreted as follows: Non reactive SPECIMENS <=0.8 Weak reactive SPECIMENS 0.9 to 5.9 Reactive SPECIMENS >=6.0 Performed By: #### CBC, TSH, HCGQT, HBSAG, HIV12C, SYPHGX, RUBIGG #### [facility] [address] [place] [phone] Syphilis IgG, Qual Nonreactive Nonreactive Normal 019 [facility] ([id number]) Comment: Result Comment: No serologic al evidence of infection with T. pallidum. Performed By: #### CBC, TSH, HCGQT, HBSAG, HIV12C, SYPHGX, RUBIGG #### [facility] [address] [place], [place] [address] rubella igg antibody on 2019-03-02 Rubella IgG Ab 3.91 Index Value Normal 03-02-2019 [facility] ([id number]) Comment: Result Comment: Index values are interpreted as follows: Negative specimens <0.90 Equivocol specimens 0.90 to 0.99 Positive specimens >0.99 The magnitude of the measure d result is not indicative of the amount of antibody present. Performed By: #### CBC, TSH, HCGQT, HBSAG, HIV12C, SYPHGX, RUBIGG #### [facility] [address] [place], [place] [address] Rubella IgG Ab, Positive Negative Critically abnormal [facility] ([id number]) Comment: Result Comment: Sample is co nsidered positive for IgG antibodies to rubella virus. A positive result indicates previous exposure to Rubella virus or vaccination. Performed By: #### CBC, TSH, HCGQT, HBSAG, HIV12C, SYPHGX, RUBIGG #### [facility] [address] [place], [place] [address] progress on 2019-02 PROGRESS HNO ID: [id number] Normal 03-02-2019 [facility] Author: Angeline Thomas) [facility] [place] ([id number]) Service: ? 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 She denies LOF, VB, DFM or cramping/contractions. Reports dysuria that started yesterda y. Denies any lower abdominal or back pain. Patient reports she throws up daily every morning - otherwise able to keep food down. Patient reports she doesn't have much of an appetite. Patient has noted 9 pound weight loss since started. Patient reports scant milky white non-odo jodi and non-irritating discharge, no different than discharge she browne s been having. O: See flow sheet Urine Macrodip: small leuks, trace protein, trace blood Gen: A+O x 3, NAD Abdomen: NT x 4 quadrants, S=D Extremities: No edema in LE A/P: 15w5d IUP. Normal . RTO 3-4 Weeks for follow u p. Call with LOF, VB, DFM or cramping/contractions. 1. 15 weeks gestation of - 2nd trimester anatomy ultrasound at next visit in 3- 4 weeks - URINE OB DIP B/O - UA DIP, URINE (POC) 2. Dysuria - CCMS sent -Patient to increase PO water hydration - UA DIP, URINE (POC) - URINE CULTURE 3. Urinary urgency - UA DIP, URINE (POC) - URINE CULTURE Angeline Dan APRN.CNM hiv 12 combo (ag/ab) on 2019-03-02 HIV 12 Ag/Ab Non Reactive Non Reactive Normal 03-02-2019 [facility] ([id number]) Comment: Performed By: #### CBC, TSH, HCGQT, HBSAG, HIV12C, SYPHGX, RUBIGG #### [facility] [address] [place], [place] [address] HIV Interpretation Negative Normal 03-02-2019 [facility] ([id number]) Comment: Result Comment: No evidence of HIV-1 or HIV-2 infection. Should recent infection be suspected, repeat testing may be considered 2-3 weeks after this draw. HIV Information: [place] Rev. C ode 3701.243(E): This information has been di sclosed to you from confidential records protected from disclosure by state law. You shall make no further disclosure of this information without the specific, written, and i nformed release of the indiv idual to whom it pertains or as otherwise permitted by state law. A general authorization for the release of medical or other information is not sufficient for the purpose of the release of HIV test results or diagnoses. Performed By: #### CBC, TSH, HCGQT, HBSAG, HIV12C, SYPHGX, RUBIGG #### [facility] [address] [place], [place] [address] HIV-1/2 Antibody Test Not Indicated Normal [facility] ([id number]) Comment: Performed By: #### CBC, TSH, HCGQT, HBSAG, HIV12C, SYPHGX, RUBIGG #### [facility] [address] [place], [place] [address] hepatitis b surf. ag on 2019-03-02 Hepatitis B Surf. Ag Negative Negative Normal 9 [facility] ([id number]) Comment: Performed By: #### CBC, TSH, HCGQT, HBSAG, HIV12C, SYPHGX, RUBIGG #### [facility] [address] [place] [address] hcg, quantitative bl on 2019-03-02 HCG, Quantitative Bl 25430.0 <5.0 mU/mL High 9 [facility] ([id number]) Comment: Result Comment: QUANTITATIVE HCG NORMAL RANGES Weeks of Gestation (Weeks Si nce LMP) 3 Weeks (5.8-71.2 mIU/mL) 4 Weeks (9.5-750 mIU/mL) 5 Weeks (217-7138 mIU/mL) 6 Weeks (158-82448 mIU/mL) 7 Weeks (3697-111619 mIU/mL) 8 Weeks (46797-045196 mIU/mL ) 9 Weeks (90620-906812 mIU/mL ) 10 Weeks (19489-286349 mIU/m L) 12 Weeks (73991-900478 mIU/m L) Referenced to 4th IS of NIBS C Performed By: #### CBC, TSH, HCGQT, HBSAG, HIV12C, SYPHGX, RUBIGG #### [facility] [address] [place], [place] [address] cbc on 2019-03-02 Absolute nRBC <0.01 <0.01 Normal 03-02-2019 [facility] ([id number]) Comment: Performed By: #### CBC, TSH, HCGQT, HBSAG, HIV12C, SYPHGX, RUBIGG #### [facility] [address] [place], [place] [address] Erythrocyte distribution 13.4 11.5-15.0 % Normal 03-02 [facility] width (RBC) [Ratio] [place] ([id number]) Comment: Performed By: #### CBC, TSH, HCGQT, HBSAG, HIV12C, SYPHGX, RUBIGG #### [facility] [address] [place], [place] [address] Hematocrit (Bld) [Volume 43.8 36.0-46.0 % Normal 03-02 [facility] fraction] [place] ([id number]) Comment: Performed By: #### CBC, TSH, HCGQT, HBSAG, HIV12C, SYPHGX, RUBIGG #### [facility] [place], [place] [address] Hemoglobin (Bld) 14.6 11.5-15.5 g/dL Normal 03-02-2019 [facility] [Mass/Vol] [place] ([id number]) Comment: Performed By: #### CBC, TSH, HCGQT, HBSAG, HIV12C, SYPHGX, RUBIGG #### [facility] [place], [place] [address] MCH (RBC) [Entitic mass] 29.0 26.0-34.0 pG Normal 03-02 [facility] ([id number]) Comment: Performed By: #### CBC, TSH, HCGQT, HBSAG, HIV12C, SYPHGX, RUBIGG #### [facility] [address] [place] [address] MCHC (RBC) [Mass/Vol] 33.3 30.5-36.0 g/dL Normal 03-02-20 19 [facility] ([id number]) Comment: Performed By: #### CBC, TSH, HCGQT, HBSAG, HIV12C, SYPHGX, RUBIGG #### [facility] [address] [place], [place] [address] MCV (RBC) [Entitic vol] 87.1 80.0-100.0 fL Normal 03-02 [facility] ([id number]) Comment: Performed By: #### CBC, TSH, HCGQT, HBSAG, HIV12C, SYPHGX, RUBIGG #### [facility] [address] [place], [place] [address] Platelet mean volume 12.1 9.0-12.7 fL Normal 9 [facility] (Bld) [Entitic vol] [place] ([id number]) Comment: Performed By: #### CBC, TSH, HCGQT, HBSAG, HIV12C, SYPHGX, RUBIGG #### [facility] [address] [place], [place] [address] Platelets (Bld) [#/Vol] 189 150-400 k/uL Normal 2018 [facility] ([id number]) Comment: Performed By: #### CBC, TSH, HCGQT, HBSAG, HIV12C, SYPHGX, RUBIGG #### [facility] [address] [place], [place] [address] RBC (Bld) [#/Vol] 5.03 3.90-5.20 m/uL Normal 03-02-2019 [facility] ([id number]) Comment: Performed By: #### CBC, TSH, HCGQT, HBSAG, HIV12C, SYPHGX, RUBIGG #### [facility] [address] [place], [place] [address] WBC (Bld) [#/Vol] 6.55 3.70-11.00 k/uL Normal 03-02-2019 [facility] ([id number]) Comment: Performed By: #### CBC, TSH, HCGQT, HBSAG, HIV12C, SYPHGX, RUBIGG #### [facility] [address] [place], [place] [address] vitamin d on 2017-10 VITAMIN D 22.7 30.0-100.0 ng/mL Low 09-22-2018 [facility] ([id number]) Comment: Result Comment: (20-30 ng/mL ) InsufficiencyThis assay accurately quantifies the sum of vitamin D3, 25-Hy droxy andvitamin D2, 25-Hyroxy. tsh w/out reflex on 2018-09-22 Thyrotropin Qn 1.090 0.270-4.20 uIU/mL Normal 09-22-2018 [facility] (00 000) basic metabolic panel on 2018-09-22 Anion gap 3 molar 11 7-13 mEq/L Normal 09-22-2018 [facility] ([id number]) Calcium mass conc 9.3 8.6-10.2 mg/dL Normal 09-22-2018 [facility] (12708) Chloride molar conc 103 98-107 mEq/L Normal 09-22-2018 [facility] nter ([id number]) CO2 molar conc 25 22-29 mEq/L Normal 09-22-2018 [facility] nter (57309) Creatinine mass conc 0.61 0.50-0.90 mg/dL Normal 8 [facility] nter (52335) GFR/1.73 sq M >60.0 >60 mL/min/{1.73_m Normal 09-22-2018 [facility] predicted among 2} [facility] blacks MDRD [facility] (000 00) rate/area (S/P/Bld) Comment: Result Comment: >60 mL/min/1 .73m2 EGFR, calc. for ages 18 and older using theMDRD formula (not correct ed for weight), is valid for stablerenal function. GFR/1.73 sq >60.0 >60 mL/min/{1.73_m2} Normal 09-22-2018 [facility].predicted MDRD [facility] rate/area (91319) Comment: Result Comment: >60 mL/min/1 .73m2 EGFR, calc. for ages 18 and older using theMDRD formula (not correct ed for weight), is valid for stablerenal function. Glucose mass conc 84 74-109 mg/dL Normal 09-22-2018 [facility] (00 000) Potassium molar conc 4.8 3.5-5.1 mEq/L Normal 8 [facility] (00 000) Sodium molar conc 139 132-144 mEq/L Normal 09-22-2018 [facility] (00 000) Urea nitrogen mass conc 14 6-20 mg/dL Normal 2017 [facility] (00 000) vitamin d on 2017-10 VITAMIN D 24.4 30.0-100.0 ng/mL Low 09-05-2018 [facility] (95287) Comment: Result Comment: (20-30 ng/mL ) InsufficiencyThis assay accurately quantifies the sum of vitamin D3, 25-Hy droxy andvitamin D2, 25-Hyroxy. tsh w/out reflex on 2018-09-05 Thyrotropin Qn 0.514 0.270-4.20 uIU/mL Normal 09-05-2018 [facility] (00 000) Procedures Procedure Name Date Provider Location Electrocardiogram 10-05-2019 [facility] ([id number]) Antibody screen 03-02-2019 [facility] ([id number]) Comment: Performed By: #### TSPN #### [facility] [address] [place] [id number] Summary Purpose Family History No Family History Records FoundNo Family History Records FoundNo Family History Records FoundNo Family History Records FoundNo Family History Records Found Advance Directives No Advanced Directives Records FoundNo Advanced Directives Records FoundNo Advanced Directives Records FoundNo Advanced Directives Records FoundNo Advanced Directives Records Found Additional Source Comments FOR RECORDS PERTAINING TO PATIENTS WHO ARE OR HAVE BEEN ENROLLED IN A CHEMICAL DEPENDENCY/SUBSTANCE ABUSE PROGRAM, SOME INFORMATION MAY BE OMITTED. This clinical summary was aggregated from multiple sources. Caution should be exercised in using it in the provision of clinical care. This summary normalizes information from multiple sources, and as a consequence, information in this document may materially changethe coding, format and clinical context of patient data. In addition, data may be omittedin some cases. CLINICAL DECISIONS SHOULD BE BASED ON THE PRIMARY CLINICAL RECORDS. [facility] provides no warranty or guarantee of the accuracy or completeness of information in this document. UNRECOGNIZED CONTENT PROVIDED BELOW FOR UNRECOGNIZED SECTION INFORMATION SOURCE DATE CREATED AUTHOR AUTHOR'S ORGANIZATIO N 10/03/2018 [facility] DATE CREATED AUTHOR AUTHOR'S ORGANIZATIO N 10/08/2019 [facility] DATE CREATED AUTHOR AUTHOR'S ORGANIZATIO N 2019 [facility] DATE CREATED AUTHOR AUTHOR'S ORGANIZATIO N 12/22/2019 [facility] CREATED AUTHOR AUTHOR'S ORGANIZATIO N 01/18/2020 [facility] Rodolfo bautista
--- OUTSIDE RECORDS SUMMARY | 2020-08-11 11:22 | XMS RPT_ITS | CCD ---
:1995 External Reference #:[id number] Author Organization [employer] Care Team Providers Name Role Phone Unavailable Unavailable Unavailable Results Result Name Value Range Unit Interpretation Flag Date Location progress on 2019-12 PROGRESS HNO ID: [id number] Normal 01-09-2020 [facility] Author: Krystian Bonilla ([id number]) Service: ? Author Type: Physician Type: Progress Notes Filed: 01/11/2020 11:19 AM Note Text: Erica Davis is a 24 year old female who presents for Ne xplanon insertion. Patient's last menstrual period was 12/26/2019. VITALS: BP 120/82 Wt 154 lb (69.9kg) LMP 12/26/2019 test: negative Nexplanon lot #: [id number] Exp date: 04/20/22 UNIVERSAL PROTOCOL / SAFETY [...] 2020-01-09 CNOV Office Visit (WOOB) Normal 01-09-2020 [facility] ERICA DAVIS ([id number]) 1995 [facility] Time Provider Department ([id number]) 01/09/20 4:20 PM KRYSTIAN VALENCIA During your [...] LMP 12/26/2019 test: negative Nexplanon lot #: [id number] Exp date: 04/20/22 UNIVERSAL PROTOCOL / SAFETY [...] contraception for 7 days. MD Cha Burriss Ms 01/09/2020 4:02 PM Signed NEXPLANON PATIENT EDUCATION [...] prevent pr egnancy. Referring Provider: KRYSTIAN VALENCIA [[id number]] Allergies As of Date: 01/09/2020 (No Known Allergies) Date Reviewed: 01/09/2020 Reviewed by: Krystian Valencia - Fully Assessed Primary Visit Diagnosis:Nexplanon insertion [Z30.017] Other Visit Diagnosis:Insertion of implantable subdermal con traceptive [Z30.017] Order(s):HCG QUAL UR B/O [[id number]] Order #: [id number] [] etonogestrel subdermal implant 68 mg (NEXPLANON)Di [...] 01/11/20 progress on 2019-12 PROGRESS HNO ID: [id number] Normal 12-26-2019 [facility] Author: Krystian Valencia Bonilla ([id number]) Service: ? Author Type: Physician Type: Progress [...] 2019-12-26 CNOV Office Visit (WOOB) Normal 12-26-2019 [facility] ERICA DAVIS ([id number]) [address] [facility] Date Time Provider Department ([id number]) 12/26/19 2:30 PM KRYSTIAN VALENCIA During your [...] control counseling [Z30.09] Order(s):HCG QUAL UR B/O [[id number]] Order #: [id number] NEXPLANON INSERTION [[id number]] Order #: [id number] Prescriptions as of 12/26/2019 Sig: VENLAFAXINE ER [...] 12/26/19 progress on 2019-12 PROGRESS HNO ID: [id number] Normal 12-25-2019 [facility] Author: Celeste [facility]Sofia[facility] ([id number]) Service: ? Author Type: Nurse Practitioner Type: Progress Notes Filed: 12/25/2019 6:09 PM Note Text: Subjective HPI Erica Davis is a 24 year old female who presents wi th need for suture removal right wrist. She had 12 sutures placed in rig ht wrist in [place], [place] ER 7 days ago. Wound is [...] APRN.SOFIA spears on 2019-12-25 CNOV Office Visit ([facility]) Normal 12-25-19 20 [place] ERICA Land ([id number]) 1995 [place] Date Time Provider Department ([id number]) 12/25/19 5:30 PM CELESTE BOURNE (SOFIA) UCWSTR [...] sutures placed i n right wrist in [place], [place] ER 7 days ago. Wound is [...] ical evaluation if any occur. Celeste Bourne APRN.DYSLEXIA TEACHER Referring Provider: SELF [[id number]] Allergies As of Date: 12/25/2019 (No Known Allergies) Date Reviewed: 12/25/2019 Reviewed by: Celeste (Mattress Stripper) Tayla - Fully Assessed Reason for Visit: Suture Removal [105] Cmt: suture removal x 12 right wr ist placed by [facility] 7 days ago Primary Visit Diagnosis:Encounter for [...] Encounter Status:Closed by CELESTE BOURNE on 12/25/19 [facility] on 12-18 [facility] Normal 12-18-[address] [facility] Emergency Department Discharge Instructions ([id number]) ERICA DAVIS, Please prov mallory this information [...] Servicios de Emer[facility]cia Name ERICA DAVIS MRN ([facility])-[id number] Acct# PLEASE READ THE FOLLOWING REGARDING YOUR [...] are changed, or new medications (includ ing jnmp-ucc-eqajffi product s) are added. If you have [...] dose given on 12/17/2019 at 21:50 Ro circle: By Mouth TUBE - ED10 pls thanks [...] 1 mg oral capsule) 1 Capsule By Tn ut Bedtime. Comment Start: QUEtiapine (QUEtiapin e [...] UNTIL YOU TALK TO YOUR DOCTOR [place] [address] [place] [address] Emergency Department Discharge Instructions Name: ERICA DAVIS Current Date:12/18/2019 03:07:10 :1995 Primary Physician:Physician, PCP Unknown We would like to thank you f or choosing [facility] for your emergency medical needs. We examined [...] 8 AM- 4:30 PM, Wednesday through Wednesday. aPu dyer note: Results are not imm ediately [...] health of those around you. Call the [employer] at 8-843-TNYH-USA or the [employer] at 8-776-BKA-1482 for more information. High blood pressure: Your [...] deadly infections. Discuss this with your child's reference test clerk, or Public Health Department. Your family practice doctor can determine if you need pneumonia or f zach vaccine. [facility] Department can be reac hed at . Substance Abuse Program: Concerns with addiction to a lcohol, benzodiazepines (Ativan or Xanax) and Opiates (Heroin, Percocet, OxyContin, Methadone or Fentanyl)? [facility] offers an inpatient Substance Abuse Pro gram to help treat the sympt oms associated with medical detoxification of addictive substances. The new program offers care for non- adults (18 and older) looking to break the chain to addictive chemicals. The Substance Ab use Program is a voluntary inpatient admission and it starts with a pre-screening phone call to a criminal justice social worker. During the call, goals and objectives for recovery and how th e patient will transition to outpatient care will be established. Please call [phone] to get help today. Domestic Violence: If you are a victim of domes tic violence (physical, verbal, or emotional), you are not alone. Discuss this with your physician or a friend and call [employer] Hotline ( for assistance and support. You [...] suicide hotline, anytime day or night, at 3-188-076-LGTB. Pharmacy Information: Below is a list of 24 hour p harmacies that we are aware of. We suggest that you call the specific pharmacy for their hours before traveling to a location. Hours may vary on holidays. [facility] [address] [place], [place] [phone] [address] [facility]rist[facility] GonzalezKevyn[place], [place] [address] [phone] [address] [place], [place] [phone] [address] [place], [place] [phone] [address] [place], [place] [phone] [address] [place], [place] [phone] [place] [address] [phone] Take all medications as dire cted. If you need prescription assistance, contact the following agencies: ?? Partnership for Prescription Assistance at 1- 736.262.8238 or www.pparx.org ?? [place] at or www.AbraRestobestrx.org ?? www.[employer].Given.to is a site with many valuable coupons [...] Salicylates [Mass/Vol] <4.0 2.8-30.0 mg/dL Normal 020 [facility] (00 000) Comment: Performed By: #### 76895-8, 70038-0p2, 94840-1, 90198-0, 60809-9, 82380-9, 2110-5, 52605-4 #### [facility], [address] [place] [address]. pre-arrival form on 2019-12-17 Pre-Arrival Pre-Arrival Summary Normal 12-17-19 20 [facility] Form Name: 6, Current Date: 12/17/2019 04:40:10 EST [place] Gender: Health Date of : Tadeoe m Age: (69430) Pre-Arrival Type: EMS ETA: 12/17/2019 04:57:00 EST Primary Care Physician: Presenting Problem: Pre-Arrival User: Tana Cruz RN Referring Source: Location: PreArrival Emergency Department Pre Arrival Form EMS: PHYSICIAN REFERRAL: Reason for Visit: 24 f SA razor knife on wrist, bleeding con trolled. Vital Signs: 140/80, 100%, 100 HR Medications Given: Comments: magnesium level on 2019-12-17 Magnesium [Mass/Vol] 1.9 1.8-2.5 mg/dL Normal 0 [facility] (25237) Comment: Performed By: #### 15397-3, 70028-2q1, 20564-8, 01496-0, 46330-0, 58971-8, 2110-02, #### [facility], [address] [place], [place]. hcg qualitative on 2019-12-17 HCG ( test) Ql <1 Normal 2019 [facility] (52860) Comment: Result Comment: Negative 0 t o LESS THAN 5 mIU/ML Positive GREATER THAN OR EQU AL TO 5 mIU/ML Performed By: #### 53975-2, 69697-4k8, 54124-8, 25649-6, 20732-6, 03052-5, 2110-02, #### [facility], [address] [facility] [place] [place]. gfrbb on 2019-12-17 GFR/1.73 sq M predicted >60 mL/min/{1.73_m2} Normal 12-17-2019 [facility] among non-blacks MDRD System (18337) (S/P/Bld) [Vol rate/Area] Comment: Performed By: #### 16871-2, 76266-5z5, 19010-1, 30711-1, 80622-9, 22108-3, 2110-02, #### [facility], [address] [facility] [place]. gfraa on 2019-12-17 GFR/1.73 sq M predicted >60 mL/min/{1.73_m2} Normal 12-17-2019 [facility] among blacks MDRD Sy stem (62213) (S/P/Bld) [Vol rate/Area] Comment: Result Comment: The MDRD equ ation has not been validated for those over 70 years, women, patients with serious co-morbid conditions, or with extremes of body size, muscle mass of nutriti onal status. Performed By: #### 44885-1, 02567-3g2, 70332-8, 00986-6, 55401-4, 94086-7, 2110-5, 60791-2 #### [facility], [address] [place], [place]. drug abuse screen 8 urine on 2019-12-17 Amphetamines Ql (U) NEGATIVE Normal 12-17-2019 [facility] (02442) Comment: Performed By: #### 19310-2 # ### [facility], [address] [place] [address]. Barbiturates Screen Ql (U) NEGATIVE Normal [facility] (04604) Comment: Performed By: #### 15486-8 # ### [facility], [address], [place]. Benzodiazepines cutoff Screen POSITIVE Abnormal 12-17-2019 [facility] (U) [Mass/Vol] Syste m (66461) Comment: Result Comment: Confirmatory testing available upon request. Performed By: #### 67941-5 # ### [facility], [address], [place]. Cocaine Ql (U) NEGATIVE Normal 12-17-2019 [facility] (44969) Comment: Performed By: #### 09236-2 # ### [facility], [address], [place]. Interpretation and review of NEGATIVE Normal 0 12-17-2019 [facility] laboratory results S ystem (73145) Comment: Performed By: #### 10907-9 # ### [facility], [address], [place]. Methadone Screen Ql NEGATIVE NEGATIVE-NEGATIVE Normal [facility] (42853) Comment: Performed By: #### 60965-6 # ### [facility], [address], [place]. Opiates Screen Ql (U) NEGATIVE Normal 12-17-19 20 [facility] (88368) Comment: Result Comment: INTERPRETATI ON TABLE FOR [...] FOR MEDICAL PURPOSES ONLY. Performed By: #### 66382-7 # ### [facility], [address], [place]. Tetrahydrocannabinol Screen Ql POSITIVE Abnormal 12-17-2019 [facility] (00 000) Comment: Result Comment: Confirmatory testing available upon request. Performed By: #### 49188-8 # ### [facility], [address], [place]. comprehensive metabolic panel on 2019-12-17 Albumin [Mass/Vol] 4.0 3.5-4.8 gm/dL Normal 12-17-2019 [facility] (16332) Comment: Performed By: #### 83654-8, 72536-9z8, 32908-8, 09705-9, 61467-1, 87555-7, 2110-5, 49217-4 #### [facility], [address], [place]. ALP [Catalytic activity/Vol] 62 32-91 Units/L Normal 0 12-17-2019 [facility] (00 000) Comment: Performed By: #### 20377-0, 54951-0s2, 12473-5, 37305-2, 17122-2, 75542-3, 2109-, 97562-6 #### [facility], [address] [place], [place]. ALT [Catalytic activity/Vol] 22 14-63 Units/L Normal 0 12-17-2019 [facility] (00 000) Comment: Performed By: #### 70116-8, 11710-8n5, 36432-0, 21039-8, 35278-8, 34331-8, 2109-, 90520-7 #### [facility], [address] [place], [place]. Anion gap [Moles/Vol] 10.0 6.0-18.0 mMol/L Normal 12-17-19 20 [facility] (00 000) Comment: Performed By: #### 70934-5, 63249-9v8, 32677-2, 27982-8, 52661-3, 08314-7, 2109-, 90483-5 #### [facility], [address] [facility] [place], [place]. AST [Catalytic activity/Vol] 31 15-41 Units/L Normal 0 12-17-2019 [facility] (00 000) Comment: Performed By: #### 04250-4, 97710-8e3, 43354-4, 55984-3, 79230-5, 06580-8, 2109-, 69509-2 #### [facility], [address] [facility] [place]. Bilirubin [Mass/Vol] 0.3 0.3-1.2 mg/dL Normal 0 [facility] (37146) Comment: Performed By: #### 96362-4, 60226-5j8, 43686-6, 42727-5, 91084-4, 68156-2, 2109-5, #### [facility], [address] [place], [place]. Calcium [Mass/Vol] 8.6 8.9-10.3 mg/dL Low 12-17-2019 [facility] (98568) Comment: Performed By: #### 46530-3, 22959-1y1, 62426-2, 24913-5, 63588-3, 17476-0, 2109-, 87041-4 #### [facility], [address], [place]. Chloride [Moles/Vol] 112 98-107 mMol/L High 0 [facility] (37956) Comment: Performed By: #### 12197-0, 95908-4p3, 41782-1, 78637-4, 76638-5, 71570-8, 2109-, #### [facility], [address] [place], [place]. CO2 [Moles/Vol] 23 22-32 mMol/L Normal 12-17-2019 [facility] (50665) Comment: Performed By: #### 39268-4, 05437-5i4, 22978-6, 01500-1, 38052-5, 55594-4, 2109-, 89863-7 #### [facility], [address] [facility] [place], [place]. Creatinine [Mass/Vol] 0.61 0.66-1.30 mg/dL Low 12-17-19 20 [facility] (10192) Comment: Performed By: #### 98740-7, 93611-9z0, 71314-9, 89481-8, 23975-6, 46050-6, 2109-, 34880-0 #### [facility], [address] [place], [place]. Glucose [Mass/Vol] 88 70-99 mg/dL Normal 12-17-2019 [facility] (45501) Comment: Result Comment: Updated A DA Reference Range A normal fasting glucose con centration is less than 100 mg/dL. An impaired fasting glucose concentration is 100-125 mg/dL. A provisional diagnosis of jose betes mellitus can be made when a fasting glucose concentratio n is greater than 125 mg/dL. Performed By: #### 47789-7, 60485-6u6, 40956-4, 18888-9, 02284-1, 38150-4, 2109-, 87849-4 #### [facility], [address] [place], [place]. Potassium [Moles/Vol] 3.5 3.6-5.1 mMol/L Low 12-17-19 20 [facility] (06341) Comment: Performed By: #### 31656-7, 92136-7e6, 10683-8, 67886-7, 49602-3, 47391-1, 2109-, 66450-8 #### [facility], [address] [facility] [place]. Protein [Mass/Vol] 6.8 6.1-7.9 gm/dL Normal 12-17-2019 [facility] (70037) Comment: Performed By: #### 38541-9, 29757-0a2, 00434-0, 84438-9, 73912-8, 39615-8, 2109-, 15772-2 #### [facility], [address] [facility] [place]. Sodium [Moles/Vol] 145 136-145 mMol/L Normal 12-17-2019 [facility] (35587) Comment: Performed By: #### 21700-3, 74658-1z1, 65163-3, 34879-4, 54983-0, 19956-3, 2109-5, 29034-6 #### [facility], [address] [facility] [place]. Urea nitrogen (BldV) 4 8-20 mg/dL Low 0 [facility] [Mass/Vol] (78752) Comment: Performed By: #### 42877-1, 70830-5b5, 72448-8, 24972-3, 99298-6, 38312-2, 2110-5, 97504-1 #### [facility], [address] [place], [place]. cbc with differential on 2019-12-17 Basophils (Bld) [#/Vol] 0.00 0.00-0.20 thou/mcL Normal 2019 [facility] (00 000) Comment: Performed By: #### 42000-1 # ### [facility], [address] [place], [place]. Basophils/100 WBC (Bld) 0.7 0.0-2.0 % Normal 2019 [facility] (18194) Comment: Performed By: #### 18003-9 # ### [facility], [address] [facility] [place]. Eosinophils (Bld) 0.20 0.00-0.70 thou/mcL Normal 12-17-2019 [facility] [#/Vol] System (00 000) Comment: Performed By: #### 38924-4 # ### [facility], [facility] [place]. Eosinophils/100 WBC (Bld) 3.8 0.0-7.0 % Normal 11-26 [facility] (89554) Comment: Performed By: #### 83305-5 # ### [facility], [address] [facility] [place]. Erythrocyte distribution 14.8 11.0-14.8 % Normal 12-17 [facility] (RBC) [Entitic vol] System (16853) Comment: Performed By: #### 15324-0 # ### [facility], [address] [facility] [place]. Hematocrit (Bld) [Volume 44.2 35.0-45.0 % Normal 12-17 [facility] fraction] System (00 000) Comment: Performed By: #### 46177-1 # ### [facility], [address] [facility] [place]. Hemoglobin (Bld) 14.7 12.0-16.0 gm/dL Normal 12-17-2019 [facility] [Mass/Vol] System (0 0000) Comment: Performed By: #### 34870-4 # ### [facility], [address] [place] [address]. Lymphocytes (Bld) 1.80 1.00-4.80 thou/mcL Normal 12-17-2019 [facility] [#/Vol] System (00 000) Comment: Performed By: #### 92938-9 # ### [facility], [address] [place] [address]. Lymphocytes/100 WBC (Bld) 43.7 22.0-44.0 % Normal 11-26 [facility] (00 000) Comment: Performed By: #### 83693-3 # ### [facility], [address] [place] [address].[place], [place]. MCH (RBC) [Entitic 29.8 27.0-34.0 Picograms Normal 12-17-2019 [facility] mass] System (00 000) Comment: Performed By: #### 41600-2 # ### [facility], [address] [place] [address].[place], [place]. MCHC (RBC) [Mass/Vol] 33.3 32.0-36.0 gm/dL Normal 12-17-19 [facility] (00 000) Comment: Performed By: #### 47031-7 # ### [facility], [facility]. MCV (RBC) [Entitic vol] 89.5 80.0-97.0 FL Normal 2019 [facility] (00 000) Comment: Performed By: #### 81198-6 # ### [facility], [address] [place], [place]. Monocytes (Bld) [#/Vol] 0.30 0.00-0.90 thou/mcL Normal 2019 [facility] (00 000) Comment: Performed By: #### 13087-8 # ### [facility], [address] [place], [place]. Monocytes/100 WBC (Bld) 7.4 0.0-12.0 % Normal 2019 [facility] (76394) Comment: Performed By: #### 48427-3 # ### [facility], [address], [place]. Neutrophils (Bld) 1.80 1.80-7.70 thou/mcL Normal 12-17-2019 [facility] [#/Vol] System (00 000) Comment: Performed By: #### 53684-5 # ### [facility], [address], [place]. Neutrophils/100 WBC (Bld) 44.4 40.0-70.0 % Normal 11-26 [facility] (00 000) Comment: Performed By: #### 49718-3 # ### [facility], [address] [place], [place]. Platelet mean volume (Bld) 8.8 6.2-12.1 FL Normal [facility] [Entitic vol] System (61753) Comment: Performed By: #### 52851-5 # ### [facility], [address] [place], [place]. Platelets (Bld) [#/Vol] 167 142-424 thou/mcL Normal 2019 [facility] (00 000) Comment: Performed By: #### 05886-3 # ### [facility], [address], [place]. RBC (Bld) [#/Vol] 4.94 3.80-5.10 million/mcL Normal 12-17-2019 [facility] (00 000) Comment: Performed By: #### 75202-7 # ### [facility], [address], [place]. WBC (Bld) [#/Vol] 4.1 4.6-10.2 thou/mcL Low 12-17-2019 [facility] (31062) Comment: Performed By: #### 10061-9 # ### [facility], [address], [place]. alcohol (ethanol) level on 2019-12-17 Ethanol [Mass/Vol] 0.20 0.00-0.00 gm/dL High 12-17-2019 [facility] (19915) Comment: Performed By: #### 99145-6, 96336-3y6, 21038-0, 30870-9, 63135-7, 16703-0, 2109-5, 38212-6 #### [facility], [address], [place]. acetaminophen (tylenol) level on 2019-12-17 Acetaminophen [Mass/Vol] <10 10.0-30.0 Normal 12-17 [facility] (23485) Comment: Performed By: #### 84228-9, 73642-0q3, 69581-6, 22964-0, 55801-8, 69462-4, 2110-5, 77793-7 #### [facility], [address], [place]. urine hcg, qual. on 2019-10-05 Beta HCG ( test) Negative Negative Normal 09-24 [facility] () System (00 000) Comment: Performed By: #### HCGUR ### # [place] [address] Comment See Below Normal 10-05-2019 [facility] (12044) Comment: Result Comment: If specific gravity is <1.005 then results may be falsely negative. Serum HCG is recommended. Performed By: #### HCGUR ### # [facility] [address] [place], [place] [address] Specific [place], Ur 1.005 1.005-1.030 Normal 019 [facility] (00 000) Comment: Performed By: #### HCGUR ### # [facility] 1 [place], [place] [address] urine drug screen o n 2019-10-05 Urine Opiate Non-detected Non-Detected Normal 10-05-2019 [facility] ( 000) Comment: Performed By: #### UDRG2 ### # [address] [address] Urine THC see below Non-Detected Normal 10-05-2019 [facility] (78537) Comment: Result Comment: Detected (un confirmed) Urine [...] only. Performed By: #### UDRG2 ### # [facility] [address] [place], [place] [address] Urine Amphetamine Non-detected Non-Detected Normal 2018 [facility] ( 000) Comment: Performed By: #### UDRG2 ### # [facility] [address] [place], [place] [address] Urine Barbiturates Non-detected Non-Detected Normal 10-05 [facility] ( 000) Comment: Performed By: #### UDRG2 ### # [address] [address] Urine Benzodiazepine Non-detected Non-Detected Normal [facility] (30121) Comment: Performed By: #### UDRG2 ### # [facility] [address] [place], [place] [address] Urine Cocaine Metab Non-detected Non-Detected Normal 09-24 [facility] (10941) Comment: Performed By: #### UDRG2 ### # [facility] [address] [place], [place] [address] Urine PCP Non-detected Non-Detected Normal 10-05-2019 [facility] (87082) Comment: Performed By: #### UDRG2 ### # [facility] [address] [place], [place] [address] urinalysis routine on 2019-10-05 Bacteria LM.HPF (Urine sed) NONE None Normal [facility] [#/Area] (71399) Comment: Performed By: #### URIN2 ### # [facility] 1 [place] [address] Ep Cells Urine 2.9 0.0-5.0 /hpf Normal 10-05-2019 [facility] (87658) Comment: Performed By: #### URIN2 ### # [facility] [address] [place] [address] Hyaline Cast 0.0 0.0-1.0 /lpf Normal 10-05-2019 [facility] (55535) Comment: Performed By: #### URIN2 ### # [facility] [address] [place] [address] RBC LM.HPF (Urine sed) 0.9 0.0-5.0 /hpf Normal [address] [place] [address] [#/Area] System (00 000) Comment: Performed By: #### [email or web address] ### # [facility] [address] [place] [address] WBC LM.HPF (Urine sed) 5.3 0.0-5.0 /hpf High [address] [place] [address] [#/Area] System (00 000) Comment: Performed By: #### [email or web address] ### # [facility] [address] [place] [address] Appearance (U) CLOUDY Normal 10-05-2019 [facility] ([id number]) Comment: Performed By: #### [email or web address] ### # [facility] [address] [place], [place] [address] Bilirubin (U) NEGATIVE Negative mg/dL Normal 10-05-2019 [facility] [Mass/Vol] System (0 0000) Comment: Performed By: #### [email or web address] ### # [facility] [address] [place], [place] [address] Color (U) YELLOW Normal 10-05-2019 [facility] (53009) Comment: Performed By: #### URIN2 ### # [facility] [address] [place], [place] [address] Glucose Ql (U) NEGATIVE Negative Normal 10-05-2019 [facility] (68401) Comment: Performed By: #### URIN2 ### # [facility] [address] [place], [place] [address] Hemoglobin,Urine NEGATIVE Negative Normal 10-05-2019 [facility] (84387) Comment: Performed By: #### URIN2 ### # [facility] [address] [place], [place] [address] Ketone Urine NEGATIVE Negative Normal 10-05-2019 [facility] (00062) Comment: Performed By: #### URIN2 ### # [facility] [address] [place], [place] [address] Leukocytes Esterase SMALL Negative Abnormal 10-05-2019 [facility] (62787) Comment: Performed By: #### URIN2 ### # [facility] [address] [place], [place] [address] Nitrites Urine NEGATIVE Negative Normal 10-05-2019 [facility] (11003) Comment: Performed By: #### URIN2 ### # [facility] [address] [place], [place] [address] pH (U) 6.0 5.0-8.0 [pH] Normal 10-05-2019 [facility] (05123) Comment: Performed By: #### URIN2 ### # [facility] [address] [place], [place] [address] Protein (U) [Mass/Vol] NEGATIVE Negative mg/dL Normal 019 [facility] (00 000) Comment: Performed By: #### URIN2 ### # [facility] [address] [place], [place] [address] Specific [place], Ur 1.005 1.005-1.030 Normal 019 [facility] (00 000) Comment: Performed By: #### URIN2 ### # [facility] [address] [place], [place] [address] Urobilinogen,Ur 0.2 0.2-1.0 EU/dL Normal 10-05-2019 [facility] (47213) Comment: Performed By: #### URIN2 ### # [facility] [address] [place], [place] [address] salicylate on 10-05 Salicylate 1.9 2.8-20.0 mg/dL Low 10-05-2019 [facility] (85613) Comment: Performed By: #### AMVIS #### [facility] [address] [place], [place] [address] plan of care on 201 07-06-12 PLAN OF CARE HNO ID: [id number] Normal 10-05-20 19 [facility] Author: Merlin Lynn ([facility] Service: Pharmacy (0 0000) Author Type: Health Care Technician Type: Plan of Care Filed: 10/05/2019 9:06 AM Note Text: MEDICATION HISTORY Patient Name:Joanie Davis : 1995 Source of history:Patient: Reliability of source: Appears re liable, clearly identified: Medication name and Medication dose and Pharmacy records: [email or web address] [phone] (primary) Medication Nonadherence Identified: No barriers noted The above information represents the best possible medicatio n history: Yes Additional comments: Knmje-ap-Rohqknnaq Medication List Adju stments: Medication Regimen Changes: na Medications Added: na Medications Removed: na Short-Term Medications: na Further Clarification Required: na Patient is a 30 day readmission: no Patient Interested in Bedside Delivery: no Time Spent Reviewing Patient's Medications: 45 minutes Allergies: ALLERGIES No Known Allergies Preferred Pharmacy: [email or web address] [phone] (primary) 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 10/05/2019 Yes Merlin Lynn (Life is Tech) pager [phone] phone [phone] October 05, 2019 9:04 AM mdrd gfr on 2019-09 GFR/1.73 sq M >60 >60mL/min/1.73m2 mL/min/{1.73_m2} Normal [facility] non-blacks MDRD (000 00) (S/P/Bld) [Vol rate/Area] Comment: Result Comment: If the patie nt is , multiply the result by 1.210. Performed By: #### GFR #### [place] [id number] hemogram/diff on 12-10-12 Abs Immature Grans 0.01 0.00-0.05 thou/cmm Normal 10-05-2019 [facility] (00 000) Comment: Performed By: #### CBCD1 ### # [address] [address] Abs Neut (ANC) 1.99 1.56-6.13 thou/cmm Normal 10-05-2019 [facility] (03866) Comment: Performed By: #### CBCD1 ### # [place] [address] Abs. Baso 0.01 0.01-0.08 thou/cmm Normal 10-05-2019 [facility] (40492) Comment: Performed By: #### CBCD1 ### # [place] [id number] Abs. Ponce 0.33 0.27-0.70 thou/cmm Normal 10-05-2019 [facility] (94792) Comment: Performed By: #### CBCD1 ### # [facility] [address] [place], [place] [address] Basophils/100 WBC (Bld) 0.2 % Normal 2018 [facility] (25135) Comment: Performed By: #### CBCD1 ### # [facility] [address] [place], [place] [address] Eosinophils (Bld) 0.15 0.00-0.31 thou/cmm Normal [facility]-05-2019 [facility] [#/[facility] (07326) Comment: Performed By: #### CBCD1 ### # [facility] [address] [place], [place] [address] Eosinophils/100 WBC (Bld) 3.6 % Normal 09-24 [facility] (51458) Comment: Performed By: #### CBCD1 ### # [facility] [address] [place], [place] [address] Erythrocyte distribution 14.3 11.7-14.4 % Normal 10-05 [facility] width (RBC) [Ratio] System (17920) Comment: Performed By: #### CBCD1 ### # [facility] [address] [place], [place] [address] Hematocrit (Bld) [Volume 47.0 34.1-44.9 % High 10-05 [facility] fraction] System (00 000) Comment: Performed By: #### CBCD1 ### # [facility] [address] [place], [place] [address] Hemoglobin (Bld) 15.4 11.2-15.7 g/dL Normal 10-05-2019 [facility] [Mass/Vol] System (0 0000) Comment: Performed By: #### CBCD1 ### # [facility] [address] [place], [place] [address] Immature Grans 0.20 % Normal 10-05-2019 [facility] (13356) Comment: Performed By: #### CBCD1 ### # [facility] [address] [place], [place] [address] Lymphocytes (Bld) 1.71 1.18-3.74 thou/cmm Normal 10-05-2019 [facility] [#/Vol] [facility] (49702) Comment: Performed By: #### CBCD1 ### # [facility] [address] [place], [place] [address] Lymphocytes/100 WBC (Bld) 40.7 % Normal 09-24 [facility] (91408) Comment: Performed By: #### CBCD1 ### # [facility] [address] [place], [place] [address] MCH (RBC) [Entitic mass] 27.9 25.6-32.2 pg Normal 10-05 [facility] (00 000) Comment: Performed By: #### CBCD1 ### # [facility] [address] [place], [place] [address] MCHC (RBC) [Mass/Vol] 32.8 31.6-34.8 % Normal 10-05-20 19 [facility] (01399) Comment: Performed By: #### CBCD1 ### # [facility] [address] [place], [place] [address] MCV (RBC) [Entitic vol] 85.3 79.4-94.8 fl Normal 2018 [facility] (00 000) Comment: Performed By: #### CBCD1 ### # [facility] [address] [place], [place] [address] Monocytes/100 WBC (Bld) 7.9 % Normal 2018 [facility] (74872) Comment: Performed By: #### CBCD1 ### # [facility] [address] [place], [place] [address] Platelet mean volume (Bld) 10.6 9.4-12.3 fl Normal [facility] [Entitic vol] System (40993) Comment: Performed By: #### CBCD1 ### # [facility] [address] [place], [place] [address] Platelets (Bld) [#/Vol] 160 182-369 thou/cmm Low 2018 [facility] (00 000) Comment: Performed By: #### CBCD1 ### # [facility] [address] [place], [place] [address] RBC (Bld) [#/Vol] 5.51 3.93-5.22 mil/cmm High 10-05-2019 [facility] (19446) Comment: Performed By: #### CBCD1 ### # [facility] [address] [place], [place] [address] RDW SD 43.8 36.4-46.3 fl Normal 10-05-2019 [facility] (74019) Comment: Performed By: #### CBCD1 ### # [facility] [address] [place], [place] [address] Seg Neutrophil 47.4 % Normal 10-05-2019 [facility] (01620) Comment: Performed By: #### CBCD1 ### # [facility] [address] [place], [place] [address] WBC (Bld) [#/Vol] 4.20 3.98-10.04 thou/cmm Normal 10-05-2019 [facility] (00 000) Comment: Performed By: #### CBCD1 ### # [facility] 1 [place] [id number] ed prov note on 201 07-06-12 ED PROV NOTE HNO ID: [id number] Normal 10-05-20 19 [facility] Author: Todd Bullock [facility] Service: Emergency Medicine ([id number]) Author Type: Physician Type: ED Provider Notes [...] evaluated her. I have spoken with the [facility] who recommend about 6 hours of observation from time of ingestio n. In further speaking with the patient she states it was around 4 -5 AM w [facility] would put her about at [...] ed note on ED NOTE HNO ID: [id number] Normal 10-05-2019 [facility] Author: [facility] ([id number]) Service: Emergency Medicine Author Type: Registered Nurse Type: ED Notes Filed: 10/05/2019 1:34 PM Note Text: Called lab at this time regarding outstanding lab orders And states they will run salicylate and acetaminophen at this time ED NOTE HNO ID: [id number] Normal 10-05-2019 [facility] Author: [facility] ([id number]) Service: Emergency Medicine Author Type: Registered Nurse Type: ED Notes Filed: 10/05/2019 1:20 PM Note Text: This RN assuming care of pt. While primary RN is at lunch br eak. Pt. Resting in bed at this time with bedside caregiver. No acute distress noted at this time. Safety precautions being maintained. ED NOTE HNO ID: [id number] Normal 10-05-2019 [facility] Author: Collette [facility] ([id number]) Service: Emergency Medicine Author Type: Registered Nurse Type: ED Notes Filed: 10/05/2019 9:42 AM Note Text: Pt placed on electronic semiconductor processor and continuous pulse ox; alarms set and on. ED NOTE HNO ID: [id number] Normal 10-05-2019 [facility] Author: Carola [facility] ([id number]) Service: ? Author Type: Registered Nurse Type: ED Notes Filed: 10/05/2019 8:38 AM Note Text: Bed: 33-BH Expected date: 10/05/19 Expected time: 8:09 AM Means of arrival: [facility] 13 Comments: afd13 - si comprehensive panel on 2019-10-05 ALP [Catalytic activity/Vol] 96 45-117 U/L Normal 1 12-06-2018 [facility] (00 000) Comment: Performed By: #### P14 #### [facility] [address] [place], [place] [address] Bilirubin [Mass/Vol] 0.3 0.2-1.0 mg/dL Normal 9 [facility] (16595) Comment: Performed By: #### P14 #### [facility] [address] [place], [place] [address] Protein [Mass/Vol] 8.0 6.4-8.2 g/dL Normal 10-05-2019 [facility] (78798) Comment: Performed By: #### P14 #### [facility] [address] [place], [place] [address] AST [Catalytic activity/Vol] 29 15-37 U/L Normal 1 12-06-2018 [facility] (00 000) Comment: Performed By: #### P14 #### [facility] [address] [place], [place] [address] ALT [Catalytic activity/Vol] 32 12-78 U/L Normal 1 12-06-2018 [facility] (00 000) Comment: Performed By: #### P14 #### [facility] [address] [place], [place] [address] Creatinine [Mass/Vol] 0.57 0.51-0.95 mg/dL Normal 10-05-20 19 [facility] (00 000) Comment: Performed By: #### P14 #### [facility] [address] [place], [place] [address] Albumin [Mass/Vol] 3.9 3.4-5.0 g/dL Normal 10-05-2019 [facility] (42092) Comment: Performed By: #### P14 #### [facility] [address] [place], [place] [address] Anion gap [Moles/Vol] 12 8-16 mmol/L Normal 10-05-20 19 [facility] (04157) Comment: Performed By: #### P14 #### [facility] [address] [place], [place] [address] Calcium [Mass/Vol] 8.6 8.5-10.1 mg/dL Normal 10-05-2019 [facility] (27353) Comment: Performed By: #### P14 #### [facility] [address] [place], [place] [address] CO2 [Moles/Vol] 24 21-32 mEq/L Normal 10-05-2019 [facility] (77384) Comment: Performed By: #### P14 #### [facility] [address] [place], [place] [address] Glucose [Mass/Vol] 87 70-99 mg/dL Normal 10-05-2019 [facility] (54904) Comment: Performed By: #### P14 #### [facility] [address] [place], [place] [address] Urea nitrogen [Mass/Vol] 2 7-18 mg/dL Low 10-05 [facility] (00794) Comment: Performed By: #### P14 #### [facility] [address] [place], [place] [address] Chloride [Moles/Vol] 111 98-107 mEq/L High 9 [facility] (12845) Comment: Performed By: #### P14 #### [facility] [address] [place], [place] [address] Potassium [Moles/Vol] 3.2 3.5-5.1 mEq/L Low 10-05-20 19 [facility] (14356) Comment: Performed By: #### P14 #### [facility] [address] [place], [place] [address] Sodium [Moles/Vol] 144 136-145 mEq/L Normal 10-05-2019 [facility] (76068) Comment: Performed By: #### P14 #### [facility] [address] [place], [place] [address] alcohol, serum on 2 Alcohol, Serum 180 mg/dL Normal 10-05-2019 [facility] (64931) Comment: Performed By: #### ALC #### [facility] [address] [place], [place] [address] acetaminophen on 12-10-12 Acetaminophen [Mass/Vol] <2 - Low 10-05 [facility] (45040) Comment: Performed By: #### ACTMN ### # [facility] [address] [place], [place] [address] progress on 2019-08 PROGRESS HNO ID: [id number] Normal 08-25-2019 [facility] Author: Priyanka Doe LPN ([id number]) Service: ? Author Type: ? Type: Progress Notes Filed: 08/25/2019 1:34 PM Note Text: Pt delivered via at [facility] on 08/21/[address] Alfaro. See OB Outcome note. Priyanka Doe LPN progress on 2019-07 PROGRESS HNO ID: [id number] Normal 08-19-2019 [facility] Author: Maddi Hsu ([id number]) Service: Obstetrics Author Type: Resident Type: Progress [...] up . Maddi Beckwith DO Pager # [phone] 08/19/2019 5:01 PM PROGRESS HNO ID: [id number] Normal 08-19-2019 [facility] Author: Dario Hsu ([id number]) Service: Obstetrics Author Type: Physician Type: Progress [...] No history of dysuria, frequency or incontinence NURSE PRACTITIONER PHYSICIAN ASSISTANT: Negative for abnormal vaginal bleeding, endorses leakag [...] CERVICAL EXAM: Dilation: 2 (08/19/19 1200 : Mdadi (Charity Beckwith) cm Station: -2 (08/19/19 1200 [...] 2019-07-24 Amphetamines, Urine Negative Negative Normal 07-24-2019 [facility] (64388) Comment: Result Comment: Cutoff thres hold at 1000 ng/mL. Performed By: #### CBC, TSH, HCGQT, HBSAG, HIV12C, SYPHGX, RUBIGG #### [facility] [address] [place] [address] Barbiturates, Urine Negative Negative Normal 07-24-2019 [facility] (62652) Comment: Result Comment: Cutoff thres hold at 200 ng/mL. Performed By: #### CBC, TSH, HCGQT, HBSAG, HIV12C, SYPHGX, RUBIGG #### [facility] [address] [place], [place] [address] Benzodiazepines, Ur Negative Negative Normal 07-24-2019 [facility] (91264) Comment: Result Comment: Cutoff thres hold at 200 ng/mL. Performed By: #### CBC, TSH, HCGQT, HBSAG, HIV12C, SYPHGX, RUBIGG #### [place] [address] [place] [address] Cannabinoids, Preliminary Negative Critically 07-24-2019 Cl christin Urine positive. [facility] (85917) Comment: Result Comment: Cutoff thres hold at 50 ng/mL. Performed By: #### CBC, TSH, HCGQT, HBSAG, HIV12C, SYPHGX, RUBIGG #### [place] [address] Cocaine, Urine Negative Negative Normal 07-24-2019 [facility] (68367) Comment: Result Comment: Cutoff thres hold at 300 ng/mL. Performed By: #### CBC, TSH, HCGQT, HBSAG, HIV12C, SYPHGX, RUBIGG #### [place] [address] Ethanol, Urine <11 <11 Normal 07-24-2019 [facility] (58109) Comment: Performed By: #### CBC, TSH, HCGQT, HBSAG, HIV12C, SYPHGX, RUBIGG #### [place] [address] Opiates, Urine Negative Negative Normal 07-24-2019 [facility] (78791) Comment: Result Comment: Cutoff thres hold at 300 ng/mL. Performed By: #### CBC, TSH, HCGQT, HBSAG, HIV12C, SYPHGX, RUBIGG #### [place] [address] Oxycodone, Urine Negative Negative Normal 07-24-2019 [facility] (87159) Comment: Result Comment: Cutoff thres hold at 100 ng/mL. Comment: Immunoassay screen only. Supercharge Repair Supervisor ss reactivity with other substances can occur [...] on the same specimen through Client Services ([phone]) if contacted within 48 hours of initial testing. [1]Substance Abuse and [facility] Services Administration (2012). Clinical Drug Testing in Primary Care Technical Assistance Publication Series 32. Department of Health and Human Services, [place], p.10. Performed By: #### CBC, TSH, HCGQT, HBSAG, HIV12C, SYPHGX, RUBIGG #### [facility] [address] [place] [id number] Phencyclidine, Urine Negative Negative Normal 9 [facility] (26171) Comment: Result Comment: Cutoff thres hold at 25 ng/mL. Performed By: #### CBC, TSH, HCGQT, HBSAG, HIV12C, SYPHGX, RUBIGG #### [facility] [address] [place], [place] [address] progress on 2019-06 PROGRESS HNO ID: [id number] Normal 07-24-2019 [facility] Author: Gracy Alfaro [place] ([id number]) Service: ? Author Type: Physician Type: Progress [...] Negative for Group B Normal 0 07-24-2019 [facility] Streptococcus by PCR. [place] (83331) Comment: Performed By: #### CBC, TSH, HCGQT, HBSAG, HIV12C, SYPHGX, RUBIGG #### [facility] [address] [place], [place] [address] cnco on 2019-04-26 CNCO Letter Text Normal 04-26-2019 [facility] (35438) progress on 2019-03 PROGRESS HNO ID: [id number] Normal 03-30-2019 [facility] Author: Biju Chinchilla [place] ([id number]) Service: ? Author Type: Physician Type: Progress [...] - Specimen received in preservative Critically 03-02-2019 [place] identified Cx Culture Result - >=100,000 C [...] and without s ulfamethoxazole, or a fluroquinolone). (76676) Comment: Performed By: #### URCUL ### # [facility] [address] [place], [place] [address] type and scr,prenatl on 2019-03-02 ABO/RH(D) A POSITIVE Normal 03-02-2019 [facility] (59044) Comment: Performed By: #### TSPN #### [facility] [address] [place] [address] tsh on 2019-03-02 TSH Qn 1.920 0.400-5.500 uU/mL Normal 03-02-2019 [facility] (86739) Comment: Result Comment: If the patie nt is , TSH reference range varies by gestational period: First Trimester 0.100-2.500 uU/mL Second Trimester 0.200-3.000 uU/mL Third Trimester 0.300-3.000 uU/mL References: 1. Vazquez L, A jacklyn M, Misha EK, et al. Management of Thyroid Dysfunction during and : An Endocrine Society Clinical Practice Guideline. J Clin Endocrinol Metab, 2012:97:2180-3762. 2. Oracio ALVAREZ. Overview of thyroid disease in . UpToDate. 2016. Accessed on April 10, 2016. Performed By: #### CBC, TSH, HCGQT, HBSAG, HIV12C, SYPHGX, RUBIGG #### [facility] [address] [place] [address] syphilis igg with conf on 2019-03-02 Syphilis IgG <0.2 Normal 03-02-2019 [facility] (99203) Comment: Result Comment: Antibody ind ex is interpreted as follows: Non reactive SPECIMENS <=0.8 Weak reactive SPECIMENS 0.9 to 5.9 Reactive SPECIMENS >=6.0 Performed By: #### CBC, TSH, HCGQT, HBSAG, HIV12C, SYPHGX, RUBIGG #### [facility] [address] [place] [id number] Syphilis IgG, Qual Nonreactive Nonreactive Normal 019 [facility] (94214) Comment: Result Comment: No serologic al evidence of infection with T. pallidum. Performed By: #### CBC, TSH, HCGQT, HBSAG, HIV12C, SYPHGX, RUBIGG #### [facility] [address] [place], [place] [address] rubella igg antibody on 2019-03-02 Rubella IgG Ab 3.91 Index Value Normal 03-02-2019 [facility] (29016) Comment: Result Comment: Index values are interpreted as follows: Negative specimens <0.90 Equivocol specimens 0.90 to 0.99 Positive specimens >0.99 The magnitude of the measure d result is not indicative of the amount of antibody present. Performed By: #### CBC, TSH, HCGQT, HBSAG, HIV12C, SYPHGX, RUBIGG #### [facility] [address] [place], [place] [address] Rubella IgG Ab, Positive Negative Critically abnormal [facility] (72928) Comment: Result Comment: Sample is co nsidered positive for IgG antibodies to rubella virus. A positive result indicates previous exposure to Rubella virus or vaccination. Performed By: #### CBC, TSH, HCGQT, HBSAG, HIV12C, SYPHGX, RUBIGG #### [facility] [address] [place], [place] [address] progress on 2019-02 PROGRESS HNO ID: [id number] Normal 03-02-2019 [facility] Author: Angeline Thomas) Sy [place] ([id number]) Service: ? Author Type: Clinical Quality Manager Type: Progress Notes Filed: 03/02/2019 11:53 AM [...] Ag/Ab Non Reactive Non Reactive Normal 03-02-2019 [facility] (42845) Comment: Performed By: #### CBC, TSH, HCGQT, HBSAG, HIV12C, SYPHGX, RUBIGG #### [facility] [address] [place], [place] [address] HIV Interpretation Negative Normal 03-02-2019 [facility] (16856) Comment: Result Comment: No evidence of HIV-1 or HIV-2 infection. Should recent infection be suspected, repeat testing may be considered 2-3 weeks after this draw. HIV Information: [place] Rev. C ode 3701.243(E): This information has [...] TSH, HCGQT, HBSAG, HIV12C, SYPHGX, RUBIGG #### [facility] [address] [place], [place] [address] HIV-1/2 Antibody Test Not Indicated Normal [facility] (16655) Comment: Performed By: #### CBC, TSH, HCGQT, HBSAG, HIV12C, SYPHGX, RUBIGG #### [facility] [address] [place], [place] [address] hepatitis b surf. ag on 2019-03-02 Hepatitis B Surf. Ag Negative Negative Normal 9 [facility] (05530) Comment: Performed By: #### CBC, TSH, HCGQT, HBSAG, HIV12C, SYPHGX, RUBIGG #### [facility] [address] [place] [address] hcg, quantitative bl on 2019-03-02 [place]CG, [place] [address].0 <5.0 mU/mL High 9 [facility] (93914) Comment: Result Comment: QUANTITATIVE HCG NORMAL RANGES Weeks of Gestation (Weeks Si nce LMP) 3 Weeks (5.8-71.2 mIU/mL) 4 Weeks (9.5-750 mIU/mL) 5 Weeks (217-7138 mIU/mL) 6 Weeks (158-81989 mIU/mL) 7 Weeks (3697-846709 mIU/mL) 8 Weeks (21650-169112 mIU/mL ) 9 Weeks (52706-279365 mIU/mL ) 10 Weeks (01863-032383 mIU/m L) 12 Weeks (62261-130729 mIU/m L) Referenced to 4th IS of NIBS C Performed By: #### CBC, TSH, HCGQT, HBSAG, HIV12C, SYPHGX, RUBIGG #### [facility] [address] [place], [place] [address] cbc on 2019-03-02 Absolute nRBC <0.01 <0.01 Normal 03-02-2019 [facility] (51262) Comment: Performed By: #### CBC, TSH, HCGQT, HBSAG, HIV12C, SYPHGX, RUBIGG #### [facility] [address] [place], [place] [address] Erythrocyte distribution 13.4 11.5-15.0 % Normal 03-02 [facility] width (RBC) [Ratio] [place] (54385) Comment: Performed By: #### CBC, TSH, HCGQT, HBSAG, HIV12C, SYPHGX, RUBIGG #### [facility] [address] [place], [place] [address] Hematocrit (Bld) [Volume 43.8 36.0-46.0 % Normal 03-02 [facility] fraction] [place] (38241) Comment: Performed By: #### CBC, TSH, HCGQT, HBSAG, HIV12C, SYPHGX, RUBIGG #### [facility] [place], [place] [address] Hemoglobin (Bld) 14.6 11.5-15.5 g/dL Normal 03-02-2019 [facility] [Mass/Vol] [place] (87510) Comment: Performed By: #### CBC, TSH, HCGQT, HBSAG, HIV12C, SYPHGX, RUBIGG #### [facility] [place], [place] [address] MCH (RBC) [Entitic mass] 29.0 26.0-34.0 pG Normal 03-02 [facility] (74821) Comment: Performed By: #### CBC, TSH, HCGQT, HBSAG, HIV12C, SYPHGX, RUBIGG #### [facility] [address] [place] [address] MCHC (RBC) [Mass/Vol] 33.3 30.5-36.0 g/dL Normal 03-02-20 19 [facility] ([id number]) Comment: Performed By: #### CBC, TSH, HCGQT, HBSAG, HIV12C, SYPHGX, RUBIGG #### [facility] [address], [place] [address] MCV (RBC) [Entitic vol] 87.1 80.0-100.0 fL Normal 03-02 [facility] ([id number]) Comment: Performed By: #### CBC, TSH, HCGQT, HBSAG, HIV12C, SYPHGX, RUBIGG #### [facility] [address] [place], [place] [address] Platelet mean volume 12.1 9.0-12.7 fL Normal 9 [facility] (Bld) [Entitic vol] [place] ([id number]) Comment: Performed By: #### CBC, TSH, HCGQT, HBSAG, HIV12C, SYPHGX, RUBIGG #### [facility] [address], [place] [address] Platelets (Bld) [#/Vol] 189 150-400 k/uL Normal 2018 [facility] ([id number]) Comment: Performed By: #### CBC, TSH, HCGQT, HBSAG, HIV12C, SYPHGX, RUBIGG #### [facility] [address], [place] [address] RBC (Bld) [#/Vol] 5.03 3.90-5.20 m/uL Normal 03-02-2019 [facility] ([id number]) Comment: Performed By: #### CBC, TSH, HCGQT, HBSAG, HIV12C, SYPHGX, RUBIGG #### [facility] [address], [place] [address] WBC (Bld) [#/Vol] 6.55 3.70-11.00 k/uL Normal 03-02-2019 [facility] ([id number]) Comment: Performed By: #### CBC, TSH, HCGQT, HBSAG, HIV12C, SYPHGX, RUBIGG #### [facility] [address], [place] [address] vitamin d on 2017-10 VITAMIN D 22.7 30.0-100.0 ng/mL Low 09-22-2018 [facility] ([id number]) Comment: Result Comment: (20-30 ng/mL ) InsufficiencyThis assay accurately quantifies the sum of vitamin D3, 25-Hy droxy andvitamin D2, 25-Hyroxy. tsh w/out reflex on 2018-09-22 Thyrotropin Qn 1.090 0.270-4.20 uIU/mL Normal 09-22-2018 [facility] (00 000) basic metabolic panel on 2018-09-22 Anion gap 3 molar 11 7-13 mEq/L Normal 09-22-2018 [facility] ([id number]) Calcium mass conc 9.3 8.6-10.2 mg/dL Normal 09-22-2018 [facility] nter ([id number]) Chloride molar conc 103 98-107 mEq/L Normal 09-22-2018 [facility] nter ([address]) CO2 molar conc 25 22-29 mEq/L Normal 09-22-2018 [facility] nter ([id number]) Creatinine mass conc 0.61 0.50-0.90 mg/dL Normal 8 [facility] nter ([address]) GFR/1.73 sq M >60.0 >60 mL/min/{1.73_m Normal 09-22-2018 [facility] predicted among 2} [facility] blacks MDRD [facility] (000 00) rate/area (S/P/Bld) Comment: Result Comment: >60 mL/min/1 .73m2 EGFR, calc. for ages 18 and older using theMDRD formula (not correct ed for weight), is valid for stablerenal function. GFR/1.73 sq >60.0 >60 mL/min/{1.73_m2} Normal 09-22-2018 [facility].predicted MDRD [facility] rate/area ([id number]) Comment: Result Comment: >60 mL/min/1 .73m2 EGFR, calc. for ages 18 and older using theMDRD formula (not correct ed for weight), is valid for stablerenal function. Glucose mass conc 84 74-109 mg/dL Normal 09-22-2018 [facility] (00 000) Potassium molar conc 4.8 3.5-5.1 mEq/L Normal 8 [facility] (00 000) Sodium molar conc 139 132-144 mEq/L Normal 09-22-2018 [facility] (00 000) Urea nitrogen mass conc 14 6-20 mg/dL Normal 2017 [facility] (00 000) vitamin d on 2017-10 VITAMIN D 24.4 30.0-100.0 ng/mL Low 09-05-2018 [facility] ([id number]) Comment: Result Comment: (20-30 ng/mL ) InsufficiencyThis assay accurately quantifies the sum of vitamin D3, 25-Hy droxy andvitamin D2, 25-Hyroxy. tsh w/out reflex on 2018-09-05 Thyrotropin Qn 0.514 0.270-4.20 uIU/mL Normal 09-05-2018 [facility] (00 000) Procedures Procedure Name Date Provider Location Electrocardiogram 10-05-2019 [facility] ([id number]) Antibody screen 03-02-2019 [facility] ([id number]) Comment: Performed By: #### TSPN #### [facility] [address] [place] [id number] Summary Purpose Family History No Family History [...] BE BASED ON THE PRIMARY CLINICAL RECORDS. [facility] provides no warranty or guarantee of the accuracy or completeness of information in this document. UNRECOGNIZED CONTENT PROVIDED BELOW FOR UNRECOGNIZED SECTION INFORMATION SOURCE DATE CREATED AUTHOR AUTHOR'S ORGANIZATIO N 10/03/2018 [facility] DATE CREATED AUTHOR AUTHOR'S ORGANIZATIO N 10/08/2019 [facility] DATE CREATED AUTHOR AUTHOR'S ORGANIZATIO N 2019 [facility] DATE CREATED AUTHOR AUTHOR'S ORGANIZATIO N 12/22/2019 [facility] CREATED AUTHOR AUTHOR'S ORGANIZATIO N 01/18/2020 [facility] Rodolfo bautista
== END 2020-04-03 18:41 | disposition home or self-care (01) ==
LOC: ED 17:33
PROVIDERS: Emergency Provider Emergency Medicine
DX: R11.2 Nausea with vomiting, unspecified (principal); F31.9 Bipolar disorder, unspecified; F10.99 Alcohol use, unspecified with unspecified alcohol-induced disorder; Z72.0 Tobacco use
CPT/HCPCS: 96361; 96374; 99283; J7030; A4216; J2405

== ENCOUNTER 2021-09-06 16:17 | Emergency (ER) | payer MEDICAID, SELFPAY ==
[2021-09-06 16:19] VITALS: BP 131/76; PULSE 93; RESP 18; TEMP 36.8; O2SAT 100; BMI 21.9
--- NOTE | 2021-09-06 16:46 | ED.VIS.FEGU ---
HPI HPI - Female History of Present Illness Chief Complaint: Vag Bld, Preg Informant: patient Pain Onset: Days Context: Gradual Onset Timing: Intermittent Quality: Positive for Cramping Location: Suprapubic Current Severity: Mild Maximum Severity: Mild Worsened by: Movement Bleeding Issue: Positive for Vaginal bleeding; Negative for Passing clots and Passing tissue Onset: Today and Days Timing: Intermittent Current Severity: Spotting and Mild Maximum Severity: Spotting Associated Symptoms Test: Positive Sexually: Positive for Active P: 3 Ab: 0 Narrative Narrative: 25-year-old female no seen past medical or surgical history. Currently 9 weeks . She is G4, P3 Ab1. Has had some intermittent spotting the last several weeks. Now it is bright red blood. She is having mild cramping. She had a recent ultrasound done and it showed an intrauterine in the office. She denies any dysuria or fever. No discharge. Prior similar symptoms: No Recent Illness/Hospitalization: No PFSH PFSH Medical History Bipolar disorder Home Medications vit,[id number] [Prenatabs FA] 1 tab PO DAILY 05/29/18 [History Last Taken 08/19/19 08:00] ibuprofen 600 mg PO Q6H PRN PRN #40 tab 08/22/19 [Rx Last Taken Unknown] ondansetron 4 mg PO Q8H PRN PRN #10 tab 04/03/20 [Rx Last Taken Unknown] Allergy/AdvReac Type Severity Reaction Status Date / Time No Known Allergies Allergy Verified 09/06/21 16:18 Social History Smoking Status: Former smoker ROS ROS ED ROS Narrative Nausea . Review of Systems ROS Unobtainable: Denies due to encephalopathy Constitutional Constitutional ED: Denies fever(s) Eyes Eyes: Denies change in vision ENT ENT ED: Denies ear pain Cardiovascular Cardiovascular: Denies chest pain Respiratory/Chest Respiratory/Chest: Denies dyspnea Gastrointestinal Gastrointestinal: Reports nausea; Denies abdominal pain, constipation, diarrhea or vomiting Genitourinary Genitourinary ED: Denies dysuria, hematuria or urinary frequency Musculoskeletal Musculoskeletal: Denies myalgias Integumentary Denies rash Neurologic Neurologic: Denies headache(s) Psychiatric Psychiatric: Denies depression Endocrine Endocrinology: Denies polyuria Hematologic/Lymphatic Hematologic/Lymphatic: Denies easy bruising Allergic/Immunologic Allergic/Immunologic ED: Denies urticaria EXAM Physical Exam Narrative Exam Narrative: And treatment I have distress vital signs stable afebrile. Had HEENT exam normal. Lungs are clear. Heart regular rhythm no murmur. Rate 90. Abdomen soft nondistended normal bowel sounds no peritoneal signs. Moving all lower extremities. No edema. Back nontender. Neurologic exam normal. Pelvic exam done female nurse present in the room's external exam unremarkable speculum exam showed a small amount of dark blood at the vaginal vault. No clots. No discharge. Os was closed. On bimanual exam she had no uterine tenderness. No adnexal tenderness. Const Vital Signs: 09/06/21 16:19 09/06/21 19:57 Temperature 98.2 F Temperature Source Temporal Pulse Rate 93 66 Respiratory Rate 18 16 Blood Pressure 131/76 H 117/64 Blood Pressure Mean 94 81 Pulse Ox 100 100 Oxygen Delivery Method Room Air Room Air Positive well nourished and well developed; Negative for obese, cachectic, contractures or unkempt General Appearance ED: well developed and NAD; Negative for unkempt, cachectic, contractures or pallor Nutritional Appearance: Negative for cachectic or obese HEENT Reports moist mucous membranes Negative for trauma or tenderness Eyes PERRL and EOMs intact bilaterally Neck no lymphadenopathy, supple and no JVD Thyroid: Negative for tender Chest Wall inspection of chest normal and palpation of chest normal Resp normal respiratory effort and clear to auscultation bilaterally Effort and Inspection: Negative for pain with movement Auscultation: Negative for rales, rhonchi or wheezes Cardio regular rate, regular rhythm, S1 normal heart sound and no murmurs GI normal to inspection, nondistended, normoactive bowel sounds, soft to palpation, non-tender, non-distended and no masses Auscultation: normoactive bowel sounds; Negative for hypoactive bowel sounds Palpation: Negative for tender, guarding or rigid no CVA tenderness Back/Spine no CVA tenderness General Back: Negative for CVA tenderness Extremity normal to inspection and full ROM General Extremety ED: Negative for edema or tenderness General Extremity: Negative for edema Neuro oriented x3 Sensorium / Orientation: alert, oriented to person, oriented to place and oriented to time Motor Exam: strength 5/5 throughout Psych mental status grossly normal Appearance: Negative for unkempt Mood & Affect: Negative for depressed or tearful Skin no rashes or lesions noted and no wounds General Skin Exam: Negative for jaundice or pallor MDM MDM MDM Narrative Medical decision making narrative: 25-year-old female at 9 weeks G4, P3 Ab0 with vaginal spotting. Had a prior unremarkable ultrasound showed a single live IUP in the office within the last several days. Blood type is known and is a positive. Repeat exam patient is doing well at 8:05 PM. I will speak to the [facility] MAINFRAME APPLICATIONS DEVELOPER physician plant protection supervisor and the patient be discharged home with outpatient follow-up. She and I discussed threatened miscarriages. Lab Data Attestation: I reviewed the patient's lab results. Lab results narrative: Quant equals [phone]. Labs: Laboratory Results - last 24 hr 09/06/21 16:53 HCG, Quant [id number] H Radiography Diagnostic Testing: Clinical Impression(s) from Imaging Studies Obstetrics Ultrasound 09/06/21 18:28 IMPRESSION: 1. Single live intrauterine correlating to gestational age of 8 weeks and 5 days. 2. Subcentimeter subchorionic fluid/hematoma. Electronically Signed: Ben Becerra MD (Brooks) at 20:00 EST , Service support , Transvaginal pelvic ultrasound is read by the radiologist shows single live IUP at 8 weeks and 5 days with cardiac activity showing a heart rate of 174. Discharge Plan Triage Chief Complaint: Vag Bld, Preg ED Provider: Mukesh Mullen Dx/Rx/DC Orders Clinical Impression: Threatened miscarriage Prescriptions: No Action vit,[id number] [Prenatabs FA] 1 TABLET tablet 1 tab PO DAILY RF: 0 ibuprofen 600 MG tablet 600 mg PO Q6H PRN PRN (Reason: Pain Score 1-3/10) Qty: 40 RF: 0 ondansetron 4 MG tablet 4 mg PO Q8H PRN PRN (Reason: Nausea) Qty: 10 RF: 0 Primary Care Provider: Care Physician,No Primary Referrals: Avis Upton DO [STAFF PHYSICIAN] - As soon as possible Care Physician,No Primary [Primary Care Provider] - Activity Restrictions/Additional Instructions: Plenty of fluids and rest. Pelvic rest and no heavy lifting. Tylenol for pain. Call and follow-up with your MAINFRAME APPLICATIONS DEVELOPER on Wednesday. You may have continued intermittent bleeding unless it becomes much heavier with clots you can follow-up with your OB. If the bleeding is a lot worse or you feel severely worse return to the emergency department. Disposition Disposition: Home, Self Care
--- NOTE | 2021-09-06 18:28 | US_ITS ---
STUDY: FIRST TRIMESTER OBSTETRICAL ULTRASOUND REASON FOR EXAM: Female, 25 years old vaginal bleeding, LMP: Unknown TECHNIQUE: Transvaginal TECHNICAL QUALITY: Adequate. PRIOR ULTRASOUND: None. FINDINGS: There is visualization of a single gestational sac in a normal intrauterine position. The mean sac diameter (MSD) measures 3.1 cm, indicating an estimated gestational age (EGA) of 8 weeks, 1 days. The gestational sac shape is within normal limits. Small Gestational fluid measuring 4-6 mm. There is a visualized yolk sac. The yolk sac measures 4.3. The placenta is non-visualized. There is visualization of a live embryo. The crown-rump length (CRL) measures 2.75 cm, indicating an estimated gestational age (EGA) of 8 weeks, 5 days. There is demonstrated cardiac activity with a heart rate of 174 bpm. The estimated gestation age (EGA) by LMP is 9 weeks, 5 days. The estimated date of delivery (MEGAN) by LMP is 04/06/2022. The estimated gestation age (EGA) by US is 8 weeks, 5 days. The estimated date of delivery (MEGAN) by US is 04/13/2022. The uterus measures 11.3 x 7.5 x 5.5 cm. There is no demonstrated uterine fibroid. The cervix is closed. The right ovary measures 3.2 x 4.3 x 3.6 cm. 3.3 cm corpus luteum cyst. There is no visualized right adnexal mass or complex lesion. The left ovary measures 3.1 x 2.5 x 2.0 cm.. There is no left ovarian cyst. There is no visualized left adnexal mass or complex lesion. There is no fluid in the cul de sac. US/Transvaginal w/Preg US IMPRESSION: 1. Single live intrauterine correlating to gestational age of 8 weeks and 5 days. 2. Subcentimeter subchorionic fluid/hematoma. Electronically Signed: Ben Becerra MD ([place]oks) at 20:00 EST , Service support ,
[2021-09-06 19:57] VITALS: BP 117/64; PULSE 66; RESP 16; O2SAT 100
== END 2021-09-06 20:25 | disposition home or self-care (01) ==
PROVIDERS: Emergency Provider Emergency Medicine
DX: O20.0 Threatened abortion (principal); O99.341 Other mental disorders complicating pregnancy, first trimester; F31.9 Bipolar disorder, unspecified; Z3A.08 8 weeks gestation of pregnancy; Z87.891 Personal history of nicotine dependence
CPT/HCPCS: 36415; 76817; 84702; 99282

== ENCOUNTER 2021-09-08 19:37 | Emergency (ER) | payer MEDICAID, SELFPAY ==
[2021-09-08 19:39] VITALS: BP 110/74; PULSE 86; RESP 15; TEMP 36.3; O2SAT 98; BMI 21.9
--- NOTE | 2021-09-08 20:26 | EKG12_ITS ---
Test Reason : DYSRYTHMIA Blood Pressure : / mmHG Vent. Rate : 067 BPM Atrial Rate : 067 BPM P-R Int : 132 ms QRS Dur : 088 ms QT Int : 416 ms P-R-T Axes : 042 040 058 degrees QTc Int : 439 ms Normal sinus rhythm Normal ECG Confirmed by ELIZABETH IGLESIAS, ELFEGO ([id number]), acquisition editor REBEKAH CRAIN ([id number]) on 09/10/2021 9:55:23 AM Referred By: KERRI Confirmed By:ELFEGO JOHNSON MD
[2021-09-08] MEDS: 0.9% Normal Saline 1,000 ML 999 ML IV (20:34)
[2021-09-08 20:37] LABS: Absolute Lymphocyte Count 1.55 X10^3/uL (0.83-4.51); Basophil# 0.03 X10^3/uL; Basophil% 0.3 % (0-1); Eosinophil# 0.13 X10^3/uL; Eosinophils% 1.4 % (0-5); Hematocrit 32.3 % (37-47); Hemoglobin 10.8 g/dL (12.0-15.0); Lymphocyte # 1.55 X10^3/ul (0.83-4.51); Lymphocyte % 16.6 % (19-41); Mean Corp Hgb Conc 33.4 g/dL (32-36); Mean Corpuscular Hgb 28.1 pg (27.0-32.0); Mean Corpuscular Volume 84.1 fL (81-99); Mean Platelet Vol. 12.1 fl (6.2-12.0); Monocyte# 0.63 X10^3/uL; Monocyte% 6.8 % (0-10); NRBC Flagged by Analyzer 0 % (0-5); Neutrophil # 6.95 X10^3/uL (2.7-7.7); Neutrophil % 74.6 % (47-70); Platelet Count 187 K/mm3 (150-450); RBC Distribution Width CV 13.3 % (11.6-14.6); RBC Distribution Width SD 40.6 fl (35.1-43.9); Red Blood Count 3.84 M/mm3 (4.2-5.4); White Blood Count 9.3 K/mm3 (4.4-11.0)
[2021-09-08 20:51] LABS: AST(SGOT) 11 U/L (15-37); Alanine Aminotransfer ALT/SGPT 16 U/L (13-56); Albumin, Serum 3.2 g/dL (3.2-5.0); Alkaline Phosphatase 50 U/L (45-117); Anion Gap 6 (5-15); BUN 8 mg/dL (7-18); BUN/Creat Ratio 19.9 RATIO (10-20); Calcium,Total 8.1 mg/dL (8.5-10.1); Chloride 110 mmol/L (98-107); EST Glomerular Filtration Rate 204 mL/min (>60); Est Glom Filt Rate - Afr Amer 247 mL/min (>60); Estimated Creatinine Clearance 209.08 ml/min; Globulin 3.1 g/dL (2.2-4.2); Glucose 95 mg/dL (74-106); Potassium 3.5 mmol/L (3.5-5.1); Protein, Total 6.3 g/dL (6.4-8.2); Sodium Level 140 mmol/L (136-145); Troponin-I HS 4 pg/mL (3.0-54.0)
--- NOTE | 2021-09-08 20:52 | US_ITS ---
We are attempting to reach an attending provider to discuss findings. An addendum with communication details will be sent when the communication is complete. STUDY: FIRST TRIMESTER OBSTETRICAL ULTRASOUND REASON FOR EXAM: Female, 25 years old. Vaginal bleeding. TECHNIQUE: Transvaginal US was obtained to better visualized the ovaries. TECHNICAL QUALITY: Adequate. PRIOR ULTRASOUND: 09.06.21. FINDINGS: There is visualization of a single gestational sac in a normal intrauterine position. The mean sac diameter (MSD) measures 29 mm, indicating an estimated gestational age (EGA) of 8 weeks, 0 days. The gestational sac shape is irregular. There is no demonstrated yolk sac. The placenta is non-visualized. Due to early gestation, the placenta is not seen. There is visualization of an embryo with no cardiac activity, consistent with intrauterine demise. The crown-rump length (CRL) measures 32 mm, indicating an estimated gestational age (EGA) of 9 weeks, 5 days. The estimated gestation age (EGA) by LMP is 10 weeks, 0 days. The estimated date of delivery (MEGAN) by LMP is .. The estimated gestation age (EGA) by US is 8 weeks, 6 days. The estimated date of delivery (MEGAN) by US is ... The uterus measures 12.4x6.6 cm. There is no demonstrated uterine fibroid. The cervix is open. The right ovary measures 4.6x5.5 cm. There is 40 mm right ovarian cyst. There is no visualized right adnexal mass or complex lesion. The left ovary measures 3.4x2.5 cm. There is no left ovarian cyst. There is no visualized left adnexal mass or complex lesion. There is no fluid in the cul de sac. US/Transvaginal w/Preg US IMPRESSION: demise. Electronically Signed: Da Navarrete MD at 21:53 EST , Service support ,
[2021-09-08 21:04] LABS: hCG Titer Quant., Serum 24238 mIU/mL (1-3)
--- NOTE | 2021-09-08 22:26 | EDS_ITS ---
HPI HPI - Female History of Present Illness Chief Complaint: Vag Bld, Preg PFSH PFSH Medical History Bipolar disorder Home Medications Prenatabs FA 1 tab PO DAILY 05/29/18 [History Last Taken 08/19/19 08:00] ibuprofen 600 mg PO Q6H PRN PRN #40 tab 08/22/19 [Rx Last Taken Unknown] ondansetron 4 mg PO Q8H PRN PRN #10 tab 04/03/20 [Rx Last Taken Unknown] ondansetron HCl [Zofran] 4 mg PO Q8H #10 tab 09/08/21 [Rx Last Taken Unknown] oxycodone 5 mg PO Q6H PRN 3 Days #12 cap 09/08/21 [Rx Last Taken Unknown] Allergy/AdvReac Type Severity Reaction Status Date / Time No Known Allergies Allergy Verified 09/08/21 19:43 Social History Smoking Status: Former smoker ROS ROS ED Constitutional Constitutional ED: Denies chills or fever(s) Eyes Eyes: Denies blurry vision or change in vision ENT ENT ED: Denies rhinorrhea or sore throat Cardiovascular Cardiovascular: Reports other Details: Syncope ; Denies chest pain or palpitations Respiratory/Chest Respiratory/Chest: Denies cough or dyspnea Gastrointestinal Gastrointestinal: Reports abdominal pain; Denies diarrhea Genitourinary Genitourinary ED: Reports other Details: Vaginal bleeding ; Denies dysuria or hematuria Musculoskeletal Musculoskeletal: Denies arthralgias or myalgias Integumentary Denies rash Neurologic Neurologic: Denies headache(s) or paresthesias Psychiatric Psychiatric: Denies anxiety or depression EXAM Physical Exam Const Vital Signs: 09/08/21 19:39 Temperature 97.3 F L Temperature Source Temporal Pulse Rate 86 Respiratory Rate 15 Blood Pressure 110/74 Blood Pressure Mean 86 Pulse Ox 98 Oxygen Delivery Method Room Air Positive well nourished General Appearance ED: NAD; Negative for pallor HEENT Denies moist mucous membranes Negative for trauma Eyes PERRL and EOMs intact bilaterally Resp normal respiratory effort and clear to auscultation bilaterally Cardio regular rate and regular rhythm GI GI Narrative: Mild pelvic tenderness. Narrative: Vaginal blood pooling on the bed with clots. Extremity normal to inspection Neuro oriented x3 Sensorium / Orientation: alert Psych mental status grossly normal Skin General Skin Exam: Negative for jaundice or pallor MDM MDM MDM Narrative Medical decision making narrative: Patient presented with vaginal bleeding at 9 weeks gestation. Patient did have a lot of pooling of blood initially and this was cleaned up. She is not hypotensive. She did state that she had an episode where she passed out while she was sitting down. She has been ambulatory here. CBC shows her white blood cell count is 9.3. Hemoglobin is 10.8 which is down 2 points. Platelets are normal. Liver function tests are normal. hCG is 24,000, 232 which is much less than the 39,000 she was at previously. Patient was discussed with the dry cleaning teacher that she saw earlier today. She recommended having an ultrasound done again. This was performed and showed demise. Patient was counseled on this finding. Since she is no longer bleeding after ultrasound her dry cleaning teacher felt that she could follow-up outpatient tomorrow to determine whether she would take medications or have a D&C. Patient counseled if she has heavy bleeding or any new symptoms she should return to the ER. I will give her oxycodone for pain for home. She is discharged home in stable condition. Impression: 1. Incomplete miscarriage 2. Blood loss anemia Lab Data Attestation: I reviewed the patient's lab results. Labs: Laboratory Results - last 24 hr 09/08/21 09/08/21 09/08/21 19:52 19:52 19:52 WBC 9.3 RBC 3.84 L Hgb 10.8 L Hct 32.3 L MCV 84.1 MCH 28.1 MCHC 33.4 RDW Std Deviation 40.6 RDW Coeff of Steven 13.3 Plt Count 187 MPV 12.1 H Immature Gran % (Auto) 0.300 Neut % (Auto) 74.6 H Lymph % (Auto) 16.6 L Hickman % (Auto) 6.8 Eos % (Auto) 1.4 Baso % (Auto) 0.3 Absolute Neuts (auto) 7.0 Absolute Lymphs (auto) 1.55 Nucleated RBC % 0 Sodium 140 Potassium 3.5 Chloride 110 H Carbon Dioxide 24.0 Anion Gap 6 BUN 8 Creatinine 0.40 L Estim Creat Clear Calc 209.08 Est GFR (MDRD) Af Amer 247 Est GFR (MDRD) Non-Af 204 BUN/Creatinine Ratio 19.9 Glucose 95 Calcium 8.1 L Total Bilirubin 0.20 AST 11 L ALT 16 Alkaline Phosphatase 50 Troponin I High Sens 4 Total Protein 6.3 L Albumin 3.2 Globulin 3.1 Albumin/Globulin Ratio 1.0 HCG, Quant 91500 H Blood Type Antibody Screen 09/08/21 19:52 WBC RBC Hgb Hct MCV MCH MCHC RDW Std Deviation RDW Coeff of Steven Plt Count MPV Immature Gran % (Auto) Neut % (Auto) Lymph % (Auto) Hickman % (Auto) Eos % (Auto) Baso % (Auto) Absolute Neuts (auto) Absolute Lymphs (auto) Nucleated RBC % Sodium Potassium Chloride Carbon Dioxide Anion Gap BUN Creatinine Estim Creat Clear Calc Est GFR (MDRD) Af Amer Est GFR (MDRD) Non-Af BUN/Creatinine Ratio Glucose Calcium Total Bilirubin AST ALT Alkaline Phosphatase Troponin I High Sens Total Protein Albumin Globulin Albumin/Globulin Ratio HCG, Quant Blood Type A POSITIVE Antibody Screen NEGATIVE Radiography Diagnostic Testing: Clinical Impression(s) from Imaging Studies Obstetrics Ultrasound 09/08/21 20:52 IMPRESSION: demise. Electronically Signed: Da Navarrete MD at 21:53 EST , Service support , ADDENDUM: 09/08/212207 IMPRESSION: demise. N.B. : The above Results were Read Back by Da Navarrete MD to Dr. Kahlil Hurtado DO, and understanding confirmed on 09/08/2021 22:01:28 (ET). Electronically Signed: Da Navarrete MD at 21:53 EST , Service support , Discharge Plan Triage Chief Complaint: Vag Bld, Preg ED Provider: Kahlil Hurtado Dx/Rx/DC Orders Instructions: ED MISCARRIAGE Incomplete Prescriptions: New oxycodone 5 mg capsule 5 mg PO Q6H PRN (Reason: pain) 3 Days Qty: 12 RF: 0 ondansetron HCl [Zofran] 4 mg tablet 4 mg PO Q8H Qty: 10 RF: 0 No Action Prenatabs FA 1 TABLET tablet 1 tab PO DAILY RF: 0 ibuprofen 600 MG tablet 600 mg PO Q6H PRN PRN (Reason: Pain Score 1-3/10) Qty: 40 RF: 0 ondansetron 4 MG tablet 4 mg PO Q8H PRN PRN (Reason: Nausea) Qty: 10 RF: 0 Primary Care Provider: Care Physician,No Primary Referrals: Care Physician,No Primary [Primary Care Provider] - Activity Restrictions/Additional Instructions: I spoke with your dry cleaning teacher regarding your case. You are to follow-up with them tomorrow outpatient for follow-up. Disposition Disposition: Home, Self Care
[2021-09-08] MEDS: oxyCODONE 5 MG Tablet PO (22:46)
[2021-09-08 22:47] VITALS: BP 124/66; PULSE 82; RESP 15; O2SAT 99
== END 2021-09-08 23:04 | disposition home or self-care (01) ==
PROVIDERS: Emergency Provider Student in an Organized Health Care Education/Training Program
DX: O03.4 Incomplete spontaneous abortion without complication (principal); D50.0 Iron deficiency anemia secondary to blood loss (chronic); F31.9 Bipolar disorder, unspecified; Z79.899 Other long term (current) drug therapy; Z87.891 Personal history of nicotine dependence
CPT/HCPCS: 76817; 80053; 84484; 84702; 85025; 86850; 86900; 86901; 93005; 96360; 96361; 99285

== ENCOUNTER 2023-10-06 13:26 | Inpatient (IN) | payer MEDICAID, SELFPAY ==
[2023-10-06] VITALS (23 sets, daily range): BP systolic 100–135; BP diastolic 52–68; PULSE 57–184; RESP 16; TEMP 36.4–37.5; O2SAT 90–100; BMI 28.5
[2023-10-06] MEDS: Lactated Ringers 1,000 ML 50 ML IV (13:50)
[2023-10-06] MEDS: LACTATED RINGERS 500 ML 999 ML IV (14:15)
[2023-10-06 14:21] LABS: Absolute Neutrophil Count 7.8 X10^3/uL (2.0-7.7); Basophil# 0.03 X10^3/uL; Basophil% 0.3 % (0-1); Eosinophil# 0.05 X10^3/uL; Eosinophils% 0.5 % (0-5); Hematocrit 37.4 % (37-47); Hemoglobin 11.4 g/dL (12.0-15.0); Lymphocyte % 12.5 % (19-41); Mean Corp Hgb Conc 30.5 g/dL (32-36); Mean Corpuscular Hgb 22.5 pg (27.0-32.0); Mean Corpuscular Volume 73.8 fL (81-99); Mean Platelet Vol. 11.8 fl (6.2-12.0); Monocyte# 0.48 X10^3/uL; NRBC Flagged by Analyzer 0 % (0-5); Neutrophil % 81.4 % (47-70); Platelet Count 180 K/mm3 (150-450); RBC Distribution Width CV 17.4 % (11.6-14.6); RBC Distribution Width SD 45.9 fl (35.1-43.9); Red Blood Count 5.07 M/mm3 (4.2-5.4); White Blood Count 9.6 K/mm3 (4.4-11.0)
[2023-10-06] MEDS: fentaNYL-bupivacaine (epidural) 100 ML BAG EPIDURAL (14:50)
[2023-10-06 14:55] LABS: Syphilis Antibodies Non-reactive
--- NOTE | 2023-10-06 16:33 | EX.PCM.OBRPT ---
Assessment & Plan (1) (spontaneous vaginal delivery): (2) Spontaneous onset of labor: (3) Spontaneous rupture of amniotic membranes: (4) Care and examination of lactating mother: Maternal Data Information MEGAN Calculator Estimated Delivery Date Method Current WG Current Estimate 10/08/23 Manual 39w 5d Vaginal Delivery Maternal Presentation Maternal Presentation: Active Labor and Spontaneous Rupture of Membranes Maternal Presentation: Patient is at 39.5 weeks gestation that presents in spontaneous labor. Operative Information Date of Procedure: 10/06/23 Pre-Operative Diagnosis: Term gestation, Spontaneous onset of labor Post-Operative Diagnosis: , live male infant Surgery / Procedure Performed: Spontaneous Vaginal Delivery Type of Anesthesia: Epidural Estimated Blood Loss: 150 Time of Delivery: 16:18 Findings Description of Procedure: Patient quickly progressed in dilation. SROM for clear fluid and was found to be complete dilation. With minimal maternal effort, head delivered over intact perineum followed immediately by anterior shoulder and remainder of infant body without traction. Vigorous male placed on maternal abdomen and was attended to by nursing staff. Pitocin IM given for active management of the third stage of labor. 3 vessel cord clamped and cut by FOB after delay. placed immediately skin to skin with patient. Placenta delivered spontaneously and intact. Vagina and perineum intact. Vaginal sweep completed by me. Fundus firm 1 below U. Hemostasis obtained. EBL 150 cc. APGARS 8/9. Dr. Alfaro notified of delivery. Presentation: Vertex Amniotic Membrane Rupture Type: Spontaneous Time of Membrane Rupture: 1530 Amniotic Fluid Description: Clear Placental Delivery Description: Spontaneous Placenta Disposition: [facility] Cord Vessel Description: 3 Vessels Cord Entanglement: None Infant A Gender: Male (1 minute): 8 (5 minute): 9 Delayed Cord Clamping: Yes Post Vaginal Delivery Medications Given After Delivery: IV Pitocin and IM Pitocin Episiotomy Description: None Laceration: None Complication Complications: None
--- NOTE | 2023-10-06 16:43 | PCM.HP.OB ---
HPI - General General Date of Admission: 10/06/23 HPI Narrative LB TORO, is a 27 F at 39.5 weeks gestation who presents with contractions. She has been having contractions since yesterday. Was seen in office and CE completed. She continued to have contractions last night and today. Denies any loss of fluid or vaginal bleeding. Positive movement. Maternal Data Information MEGAN Calculator Estimated Delivery Date Method Current WG Current Estimate 10/08/23 Manual 39w 5d PFSH PFSH Medical History Alcohol abuse Anemia Bipolar disorder BV (bacterial vaginosis) Family history of hearing loss at age younger than 7 years HPV (human papilloma virus) infection Post traumatic stress disorder (PTSD) Thyroid disorder Home Medications vits,calcium no.78-iron fumarate-folic acid 29 mg-1 mg tablet (Prenatabs FA) 1 tab PO DAILY vitamin 05/29/18 [History Last Taken 08/19/19 08:00] ibuprofen 600 mg tablet 600 mg PO Q6H PRN PRN Pain Score 1-3/10 #40 tabs 08/22/19 [Rx Last Taken Unknown] ondansetron 4 mg disintegrating tablet 4 mg PO Q8H PRN PRN Nausea #10 tabs 04/03/20 [Rx Last Taken Unknown] ondansetron HCl 4 mg tablet (Zofran) 4 mg PO Q8H #10 tabs 09/08/21 [Rx Last Taken Unknown] oxycodone 5 mg capsule 5 mg PO Q6H PRN pain 3 days #12 caps 09/08/21 [Rx Last Taken Unknown] Allergy/AdvReac Type Severity Reaction Status Date / Time No Known Allergies Allergy Verified 09/08/21 19:43 Social History Smoking Status: Former smoker History Elective abortions Hx Para 3 Spontaneous abortions Hx # Term Pregnancies Ectopic pregnancies Hx # Pregnancies Multiple births # of living children ROS Eyes Eyes: Denies blurry vision, change in vision or spots in vision ENT HEENT: Denies dizziness or headache(s) Cardiovascular Cardiovascular: Denies abdominal pain, chest pain or dyspnea Respiratory/Chest Respiratory/Chest: Denies cough, dyspnea, shortness of breath at rest or shortness of breath with exertion Gastrointestinal Gastrointestinal: Denies abdominal pain, diarrhea or vomiting Genitourinary Genitourinary: Denies change in urinary stream, difficulty urinating or dysuria Musculoskeletal Musculoskeletal: Reports none Integumentary Integumentary: Denies rash Neurologic Neurologic: Denies dizziness, headache(s), memory loss or weakness Psychiatric Psychiatric: Reports none Vital Signs Vital Signs Vital Signs: 10/06/23 14:54 10/06/23 14:54 10/06/23 14:54 Pulse Rate 72 Blood Pressure 125/62 H BP Systolic 125 BP Diastolic 62 Pulse Ox 100 10/06/23 14:59 10/06/23 14:59 10/06/23 15:01 Pulse Rate 71 Blood Pressure 111/53 L BP Systolic 111 BP Diastolic 53 Pulse Ox 100 10/06/23 15:01 10/06/23 15:04 10/06/23 15:04 Pulse Rate 64 60 Blood Pressure BP Systolic BP Diastolic Pulse Ox 100 10/06/23 15:06 10/06/23 15:06 10/06/23 15:07 Pulse Rate 57 L 62 Blood Pressure 116/54 L BP Systolic 116 BP Diastolic 54 Pulse Ox 10/06/23 15:07 10/06/23 15:09 10/06/23 15:09 Pulse Rate 68 Blood Pressure BP Systolic BP Diastolic Pulse Ox 90 100 10/06/23 15:11 10/06/23 15:11 10/06/23 15:33 Pulse Rate 63 Blood Pressure 100/52 L 114/57 L BP Systolic 100 114 BP Diastolic 52 57 Pulse Ox 10/06/23 15:33 10/06/23 15:53 10/06/23 15:53 Pulse Rate 98 83 Blood Pressure 116/66 BP Systolic 116 BP Diastolic 66 Pulse Ox 10/06/23 16:31 10/06/23 16:31 Pulse Rate 184 H Blood Pressure 135/68 H BP Systolic 135 BP Diastolic 68 Pulse Ox Weight Weight: 182 lb Body Mass Index (BMI) 28.5 Physical Exam Const alert, oriented x3 and no apparent distress General Appearance: cooperative Orientation / Consciousness: awake Exam Limitations: no limitations HEENT normocephalic Head and Scalp: normal to inspection Eyes General Eye: normal appearance of both eyes Neck full ROM and no lymphadenopathy Lymph Lymphatic: no lymphadenopathy noted Chest inspection of chest normal Resp normal respiratory effort, normal air movement and clear to auscultation bilaterally Effort and Inspection: able to speak in complete sentences and symmetric chest movement Cardio regular rate and regular rhythm GI normal to inspection, nondistended, normoactive bowel sounds Manual OB Exam: presentation cephalic Back/Spine normal ROM Extremity full ROM and no calf tenderness Skin no rashes or lesions noted General Skin Exam: no breakdown Neuro oriented x3 and CN's II-XII intact bilaterally Psych mental status grossly normal and thought process normal Labs Labs Labs: Blood Type A POSITIVE Antibody Screen NEGATIVE Hct 37.4 % (37-47) Hgb 11.4 g/dL (12.0-15.0) L Obstetrics Ultrasound Syphilis Total Ab Non-reactive Hep Bs Antigen Negative (Negative) Hepatitis C Ab (EIA) <0.1 s/co ratio (0.0-0.9) HIV 1&2 Antibody Non-Reactive (Nonreactive) Rhogam given: No GBS negative Assessment & Plan (1) 39 weeks gestation of : (2) Alcohol abuse: COMMENT: History of alcohol abuse. 2020 was last time. Pt was in AA. Currently doing well. (3) Post traumatic stress disorder (PTSD): COMMENT: Childhood trauma (4) Bipolar disorder: COMMENT: Bipolar depression. Pt was hospitalized after last delivery for suicidal thoughts. Pt currently feels stable, denies any SI. (5) Spontaneous onset of labor: (6) Multiparous: PLAN: Plan Admit to labor and delivery for spontaneous onset of labor Epidural when indicated Routine labs Start IV and run fluids per orders Anticipate Dr. Alfaro notified of admission and is collaborating physician
[2023-10-06] MEDS: 0.9% Saline Lock 10 ML Syringe IV (20:17)
[2023-10-06] MEDS: Ondansetron 4 MG/2 ML Vial IV (20:17)
[2023-10-06] MEDS: Oxytocin 15 Units/NS 250ml 15 UNITS/250 ML IV.SOLN 83 UNITS IV (20:20)
[2023-10-07 00:41] VITALS: BP 106/65; PULSE 70; RESP 16; TEMP 36.4
[2023-10-07] MEDS: Ibuprofen 600 MG Tablet PO (01:20)
[2023-10-07 03:52] VITALS: BP 108/52; PULSE 64; RESP 16; TEMP 36.8
[2023-10-07 07:50] VITALS: BP 108/60; PULSE 67; RESP 16; TEMP 36.2; O2SAT 98
--- NOTE | 2023-10-07 08:35 | PN.OBGYN_ITS ---
Subjective Subjective Denies complaints Objective Data Objective Data Vital Signs: Vital Signs Temp Pulse Resp BP Pulse Ox O2 Del Method 98.3 F 64 16 108/52 L 98 Room Air 10/07/23 03:52 10/07/23 03:52 10/07/23 03:52 10/07/23 03:52 10/06/23 20:07 10/07/23 03:52 Oxygen Delivery Method Room Air Weight: 182 lb Body Mass Index (BMI) 28.5 Intake & Output: Intake and Output for Last 24 Hours 10/05/23 10/06/23 10/07/23 23:59 23:59 23:59 Intake Total 1103.34 / 1103.34 Output Total 700 / 700 Balance 403.34 / 403.34 Lab / Micro Data 10/06/23 13:50 Labs: Laboratory Results - last 24 hr 10/06/23 13:50: WBC 9.6, RBC 5.07, Hgb 11.4 L, Hct 37.4, MCV 73.8 L, MCH 22.5 L, MCHC 30.5 L, RDW Std Deviation 45.9 H, RDW Coeff of Steven 17.4 H, Plt Count 180, MPV 11.8, Immature Gran % (Auto) 0.300, Neut % (Auto) 81.4 H, Lymph % (Auto) 12.5 L, [place] % (Auto) 5.0, Eos % (Auto) 0.5, Baso % (Auto) 0.3, Absolute Neuts (auto) 7.8 H, Absolute Lymphs (auto) 1.20, Nucleated RBC % 0, Syphilis Total Ab Non-reactive, Blood Type A POSITIVE, Antibody Screen NEGATIVE Physical Exam Const alert, oriented x3 and no apparent distress HEENT normocephalic GI soft to palpation, non-tender and non-distended GI Narrative: fundus firm, mid & below umbilicus Extremity normal to inspection and no calf tenderness Assessment & Plan (1) (spontaneous vaginal delivery): COMMENT: PPD#1 (2) Care and examination of lactating mother: (3) Alcohol abuse: COMMENT: History of alcohol abuse. 2020 was last time. Pt was in AA. [facility] doing well. PLAN: Plan Routine care & possible d/c to home later today
--- NOTE | 2023-10-07 08:38 | PCM.DC.SUM ---
Providers Date of Admission: 10/06/23 Primary Care Physician: Michelle Primary Care Phys Reason For Visit: LABOR AND DELIVERY Diagnosis Discharge Diagnosis (1) (spontaneous vaginal delivery): Status: Acute Code(s): O80 - Encounter for full-term uncomplicated delivery (2) Care and examination of lactating mother: Status: Acute Code(s): Z39.1 - Encounter for care and examination of lactating mother (3) Alcohol abuse: Status: Acute Code(s): F10.10 - Alcohol abuse, uncomplicated Plan Routine care & possible d/c to home later today Medications at Discharge Home Medications vits,calcium no.78-iron fumarate-folic acid 29 mg-1 mg tablet (Prenatabs FA) 1 tab PO DAILY vitamin 05/29/18 ibuprofen 600 mg tablet 600 mg PO Q6H PRN PRN Pain Score 1-3/10 #40 tabs 08/22/19 ondansetron 4 mg disintegrating tablet 4 mg PO Q8H PRN PRN Nausea #10 tabs 04/03/20 Hospital Course Summary of Care Provided Minutes Spent on Discharge: 15 Hospital Course: Vaginal delivery Weight / BMI Weight Weight: 182 lb Body Mass Index (BMI) 28.5 ABG / Lab / Microbiology Data 10/06/23 13:50 Laboratory: Laboratory Results - last 24 hr 10/06/23 13:50: WBC 9.6, RBC 5.07, Hgb 11.4 L, Hct 37.4, MCV 73.8 L, MCH 22.5 L, MCHC 30.5 L, RDW Std Deviation 45.9 H, RDW Coeff of Steven 17.4 H, Plt Count 180, MPV 11.8, Immature Gran % (Auto) 0.300, Neut % (Auto) 81.4 H, Lymph % (Auto) 12.5 L, [place] % (Auto) 5.0, Eos % (Auto) 0.5, Baso % (Auto) 0.3, Absolute Neuts (auto) 7.8 H, Absolute Lymphs (auto) 1.20, Nucleated RBC % 0, Syphilis Total Ab Non-reactive, Blood Type A POSITIVE, Antibody Screen NEGATIVE D/C Instructions Discharge Diet: No restrictions Discharge Activity: May Shower May resume sexual activity in: 6 weeks Weight Bearing Status: Weight bearing as tolerated Call your doctor if you observe: Fever of 101 or Higher, Coldness, Increased Pain, Change in Color, Inability to urinate, Inability to have a bowel movement, Using more than 1 pad per hour, Shortness of breath, Dizziness, Fainting spells, Chest pain, Increased palpitations (irregular heartbeat), Calf discomfort and Uncontrolled pain Please Follow Up With: Cortney Cash CNM When: Follow up in 2 and 6 weeks for visits. Meaningful Use Info Meaningful Use Diagnoses (Choose all that apply): None applicable Discharge Plan Admission Admit Date/Time: 10/06/23 13:26 Primary Reason for Your Visit: Vaginal delivery Attending Provider: Cortney Cash Primary Care Provider: Care Physician,Michelle Primary Discharge Orders/Prescriptions Prescriptions: Continued Prenatabs FA 1 TABLET tablet 1 tab PO DAILY ibuprofen 600 MG tablet 600 mg PO Q6H PRN PRN (Reason: Pain Score 1-3/10) Qty: 40 0RF ondansetron 4 MG tablet 4 mg PO Q8H PRN PRN (Reason: Nausea) Qty: 10 0RF Discontinued oxycodone 5 mg capsule 5 mg PO Q6H PRN (Reason: pain) 3 Days Qty: 12 0RF ondansetron HCl [Zofran] 4 mg tablet 4 mg PO Q8H Qty: 10 0RF Referrals / Follow Up: Care Physician,No Primary [Primary Care Provider] - Disposition Disposition (needs filled in before D/C Order can be placed): Home, Self Care
[2023-10-07] MEDS: Ondansetron 8 MG Tablet PO (08:51)
[2023-10-07 12:47] VITALS: BP 112/71; PULSE 67; RESP 16; TEMP 36.2; O2SAT 99
--- NOTE | 2023-10-07 13:54 | CASEMGMT ---
Social Work Assessment Labor and Delivery Unit Patient Address:[address] [place] [address] Phone number: [phone] Date of Referral: 10/06/23 Time of Referral:? [id number] Referred By: Cortney Cash Date of Intervention: ??10/07/23 Time of Intervention:? 1300 Reason for Referral:? mental health Sw completed chart review and acknowledges social work consult due to maternal mental health history. Sw presented to bedside and introduced self to mother of baby (MOB- Erica) and father of baby (FOB- Jaden). Sw explained sw reason for sw involvement and completed psychosocial assessment. History obtained from: medical records, MOB and FOB Household composition: Currently residing in the family home is DINORAH, FRANCISCO, their three other children (Yesy- 8 years old, Amaury- 5 years old, and Lakeisha- 3 years old) and now baby. Patient's parent/guardian status:? FRANCISCO states that he and MOB met when they were both residing in [place]. Parents state that they have been together for 8 years. No concerns at this time with domestic violence or intimate partner violence. Medical History: ?RAFAL is 27 year old female who is 5, para 3- now 4 following labor and delivery of baby. MOB delivered baby via vaginal delivery on 10/06/23 at 39 weeks gestation. Baby boy, named Reece, was born weighing 7lb 3oz and his apgars were 8 and 9 at one and five minutes of life respectfully. MOB states that she is breast feeding and it is going well. MOB states that baby will be followed by Dr. Leblanc for pediatrics. Educational Status:? Both parents graduated from high school, no concerns with reading, learning or comprehension reported. Financial Status: Both parents were gainfully employed outside of the home. FRANCISCO works as a [employer] in the [employer] industry- he states that he is able to take off a couple of days for paternity leave now that baby has been born. MOB stated that she was previously working at [employer], but is currently on maternity leave. MOB states that now that she has 4 kids she does not know if she is going to return to work until the kids are older. Supplies:?Paretns state that they have obtained all necessary baby items including: car seat, safe sleep space, clothes, diapers, wipes and a breast pump. ? Childcare/Caregiver(s):?MOB will be the primary caregiver to baby, along with FOB when not working. When necessary parents are able to ask for assistance from FOB's family. Transportation:?? Both parents drive and have reliable means of transportation. No transportation barriers at this time. Programs/Agencies Involved: ???DINORAH is connected to insurance through [employer] [facility] [employer]. Kamini asked if DINORAH was planning on getting connected to [facility], and DINORAH reports that she is not sure because she is planning on breast feeding. Sw encouraged MOB to get connected as they are able to provide additional nutritional supports aside from formula. MOB expressed understanding. Children Services/Legal Issues:?DINORAH denies history of [facility] involvement. DINORAH does have substance use history, none reported since 2020, no issues or concerns warranting a referral to be made at this time. ?? Behavioral Health Issues: ??Mental Health History: FRANCISCO denies mental health history. DINORAH states that she has been diagnosed with BiPolar and PTSD. DINORAH also struggled significantly with depression following the of her children. DINORAH stated that she struggled with depression after all of her children, but states that after her last child was born was when she struggled the hardest. DINORAH states that she turned to alcohol to help manage her symptoms. DINORAH states that she got connected to services through [facility] and . DINORAH states that through counseling and other support services she has been able to stay sober since 2020. DINORAH completed an [place] Depression Scale and her score was a 0. ??? Substance Use History:??MOB with significant alcohol use starting after the of her last child in 2019 but has been sober since 2020. DINORAH states that she also has a history of marijuana use, but none prior to or during this . Family History:??DINORAH states that her parents both struggled with addiction and mental health diagnoses. DINORAH states that her mom has as a result of her substance use. MOB states that she was put into the foster care system and does not have contact with her father. MOB states that that is where a lot of her PTSD stems from.??? Drug Screens: ??Urine screens throughout and at delivery were negative for all substances. Family/Social Stressors:? Parents deny stressors at this time. Support Systems: parents state that paternal grandparents are their biggest supports at this time. Depression/Shaken Baby/Safe Sleeping:? Sw educated parents on signs and symptoms of baby blues and depression/ anxiety. Parents very open and candid regarding the work that DINORAH had done prior to getting and getting off all of her mental health medications (she could not remember names). DINORAH states that she has been substance free, including psychotropic medications for quite some time and she feels the best that she has felt in years. MOB stated that she does not feel nervous or scared regarding experiencing any symptoms this time. Sw educated parents on shaken baby prevention and ABCs of safe sleep. Parents expressed understanding. ASSESSMENT:? MOB and baby admitted following labor and delivery. MOB and FOB engaged in assessment/ questions during psychosocial assessment. Parents were observed to provide appropriate and caring hands on care of baby. Parents have supports in place found in FOB's family. Parents have obtained all necessary baby supplies. Parents express understanding and plan for MOB journey. MOB encouraged to stay connected to the mental health resources and supports that she has in place. PLAN:? MOB and baby to be discharged when medically ready. ?No other services requested or indicated. Daniel Wei, [employer], ATHLETIC SH[employer] DESIGNER
[2023-10-07 16:23] VITALS: BP 110/70; PULSE 73; RESP 16; TEMP 36.6; O2SAT 95
== END 2023-10-07 17:25 | disposition home or self-care (01) | DRG 560 ==
LOC: LAB 13:32 → WP 13:32
PROVIDERS: Admitting Provider Advanced Practice Midwife; Referring Provider Advanced Practice Midwife; Visit Provider Advanced Practice Midwife
DX: O42.92 Full-term premature rupture of membranes, unspecified as to length of time between rupture and onset of labor (principal); Z37.0 Single live birth; Z3A.39 39 weeks gestation of pregnancy; Z87.891 Personal history of nicotine dependence; Z86.59 Personal history of other mental and behavioral disorders
CPT/HCPCS: 59025; 59050; 85025; 86780; 86850; 86900; 86901; 99221; J7120; A4216; G0378; J2405

== ENCOUNTER 2025-07-28 06:03 | Observation (INO) | payer MEDICAID, SELFPAY ==
[2025-07-28] VITALS (7 sets, daily range): BP systolic 119–131; BP diastolic 65–94; PULSE 18–98; RESP 15–89; TEMP 36.5–37.2; O2SAT 97–99; BMI 28.5; BMI 28.0
--- NOTE | 2025-07-28 06:39 | EX.ED.SAOD ---
HPI History of Present Illness Chief Complaint: ETOH Intox Informant: patient and parent Narrative Narrative: Patient is a 29-year-old female with a history of alcohol use disorder and bipolar depression, presenting with emesis, tremors, and hematemesis. Patient is accompanied by her mother, who is supplementing history. - Reports emesis for 4 days, beginning after consuming a large quantity of alcohol. - Initially abstained from alcohol on the first day of emesis, suspecting alcohol poisoning. - Resumed drinking on the second day due to feeling "really sick" and as if her "body was shutting down." - Currently experiencing tremors and mild abdominal cramping. - Reports small amounts of blood in emesis; denies melena. - Consumes 4-6 9% alcoholic beverages daily, sometimes less. - Has attempted to stop drinking multiple times over the past 6 months but resumes due to withdrawal symptoms, including tremors and feeling unwell. - Denies current medication use for bipolar depression; self-medicates with alcohol. - Describes herself as a "functioning alcoholic," managing daily responsibilities but unable to stop drinking due to withdrawal symptoms. [facility] Medical History (spontaneous vaginal delivery) Thyroid disorder Alcohol abuse Anemia Post traumatic stress disorder (PTSD) BV (bacterial vaginosis) Family history of hearing loss at age younger than 7 years HPV (human papilloma virus) infection Bipolar disorder Home Medications Medication Instructions Recorded Last Taken Type NK 07/28/25 Unknown History Allergy/AdvReac Type Severity Reaction Status Date / Time No Known Allergies Allergy Verified 07/28/25 06:10 Social History (Updated 07/28/25 @ 06:[address] Josemanuel Delgado MD) Smoking Status: Current every day smoker tobacco type: cigarettes and e-cigarettes alcohol intake: current alcohol intake frequency: 3 or more drinks per day substance use type: marijuana ROS ROS ED Constitutional Constitutional ED: Reports fatigue; Denies chills or fever(s) Eyes Eyes: Denies change in vision or diplopia ENT ENT ED: Denies rhinorrhea or sore throat Cardiovascular Cardiovascular: Denies chest pain or palpitations Respiratory/Chest Respiratory/Chest: Denies cough or dyspnea Gastrointestinal Gastrointestinal: Reports abdominal pain, diarrhea, hematemesis, hematochezia, nausea and vomiting; Denies melena Genitourinary Genitourinary ED: Denies dysuria or hematuria Musculoskeletal Musculoskeletal: Denies back pain or neck pain Integumentary Denies abscess or rash Neurologic Neurologic: Reports tremor(s); Denies headache(s), paresthesias or weakness Psychiatric Psychiatric: Reports anxiety; Denies suicidal thoughts EXAM Physical Exam Const Vital Signs: 07/28/25 06:04 Temperature 98.1 F Temperature Source Oral Pulse Rate 71 Respiratory Rate 16 Blood Pressure 128/94 H Blood Pressure Mean 105 Pulse Ox 98 Oxygen Delivery Method Room Air Positive well nourished and well developed Constitutional Narrative: appears malaised General Appearance ED: well developed and NAD HEENT Reports moist mucous membranes normocephalic and atraumatic Eyes PERRL and EOMs intact bilaterally Neck full ROM and supple Resp normal respiratory effort and clear to auscultation bilaterally Cardio regular rate, regular rhythm and no murmurs GI non-tender and non-distended Auscultation: normoactive bowel sounds Palpation: soft Back/Spine no CVA tenderness General Back: other FROM Extremity normal to inspection General Extremety ED: Negative for edema, pulses abnormal or tenderness General Extremity: Negative for edema or pulses abnormal Neuro oriented x3, CN's II-XII intact bilaterally and no sensory deficits noted Sensorium / Orientation: awake and alert Motor Exam: strength 5/5 throughout Psych mental status grossly normal and thought process normal Skin no rashes or lesions noted and no wounds MDM MDM MDM Narrative Medical decision making narrative: Assessment: The patient is a 29-year-old female with PMH of bipolar depression presenting for progressive alcohol withdrawal after abrupt reduction of her daily intake (4–6 high-alcohol beers per day). She reports four days of persistent vomiting with small streaks of blood, tremors, subjective feeling of “organs shutting down,” and fear of seizure. Initial laboratory panel shows only mildly elevated liver enzymes with no acute metabolic derangements, supporting alcohol withdrawal rather than hepatic failure or other metabolic emergency. Given these findings and ongoing symptoms, alcohol dependence with withdrawal is the most likely diagnosis and warrants inpatient management for safe detoxification. Likely also has alcoholic gastritis given the small amount of hematemesis, but her BUN is not significantly elevated nor is she anemic to suggest a hemodynamically significant upper GI bleed. Also, her ketones are negative and her anion gap is normal, arguing against alcoholic ketoacidosis. Plan: - Administered IV fluids in ED. - Administered antiemetic & lorazepam; patient reports symptomatic improvement. - Initiating admission for alcohol withdrawal management/detox to monitor for seizures and provide benzodiazepine protocol as needed. - Discussed treatment goals and inpatient detox process with patient; patient consents and is ready to stop drinking. Diagnostics: - Labs: mild elevation of liver enzymes; remainder of metabolic studies normal, indicating no acute metabolic disturbance. Reevaluations: - Patient re-assessed after medications: reports feeling “a little better”; labs reviewed with patient; agrees with plan for admission. Lab Data Attestation: I reviewed the patient's lab results. Labs: Laboratory Results - last 24 hr 07/28/25 07:04 WBC 7.5 RBC 4.88 Hgb 14.8 Hct 43.1 MCV 88.3 MCH 30.3 MCHC 34.3 RDW Std Deviation 47.6 H RDW Coeff of Steven 15.0 H Plt Count 229 MPV 10.8 Immature Gran % (Auto) 0.100 Neut % (Auto) 82.9 H Lymph % (Auto) 10.0 L [place] % (Auto) 5.7 Eos % (Auto) 0.8 Baso % (Auto) 0.5 Absolute Neuts (auto) 6.2 Absolute Lymphs (auto) 0.75 L Nucleated RBC % 0 Sodium 139 Potassium 3.8 Chloride 102 Carbon Dioxide 22.7 Anion Gap 14 BUN 3 L Creatinine 0.70 Estim Creat Clear Calc 130.97 Est GFR (MDRD) Non-Af 120 BUN/Creatinine Ratio 4.6 L Glucose 106 H Calcium 9.8 Total Bilirubin 0.67 AST 183 H ALT 98 H Alkaline Phosphatase 118 H Total Protein 7.4 Albumin 4.5 Globulin 3.0 Albumin/Globulin Ratio 1.5 Lipase 14 b-Hydroxybutyric mmol/L 0.2 Ethyl Alcohol < 10.1 Discharge Plan Dx/Rx/DC Orders Clinical Impression: Alcohol dependence with withdrawal, uncomplicated, Alcoholic gastritis with bleeding Disposition Disposition: Acute Care [facility]
--- OUTSIDE RECORDS SUMMARY | 2025-07-28 06:54 | XMS RPT_ITS | CCD ---
Author Organization [facility] Care Team Providers Care Client Development Consultant Name Role Phone Unavailable Primary Care Provider Unavailabl e Plotmikie, Cortney Admitting Unavailable Plotts, Cortney Attending Unavailable Plotts, Cortney Referring Unavailable Care Physician, No Primary Primary Care Unava ilable Unavailable Primary Care Provider Unavailabl e Unavailable Primary Care Provider Unavailabl e NEYLINDSAYT SULTANA ROSSRE Attending Unavail able SELF Referring Unavailable RICHARD, MARITZA Referring Unavailable RICHARD, MARITZA Referring Unavailable NEYLINDSAYT ROSS, GRACY Attending Unavail able RICHARD, MARITZA Referring Unavailable NEYHART VANDANA, GRACY Attending Unavail able KRYSTIAN VALENCIA Attending Unavailable NEYHART ROSS, GRACY Attending Unavail able LOS AGUILAR Attending Unavailable PLOTTS, CORTNEY Attending Unavailable HAURY, LON Attending Unavailable RICHARD, MARITZA Referring Unavailable NEYHART ROSS, GRACY Referring Unavail able PLOTTS, CORTNEY Attending Unavailable SHIVADULCE ODOM Referring Unavailable WISWELL, LEONARDO Attending Unavailable PLOTTS, CORTNEY Referring Unavailable RICHARD, MARITZA Attending Unavailable RICHARD, MARITZA Attending Unavailable RICHARD, MARITZA Referring Unavailable WISWELL, LEONARDO Attending Unavailable RICHARD, MARITZA Referring Unavailable PLOTTS, CORTNEY Attending Unavailable HAURY, LON Referring Unavailable RICHARD, MARITZA Attending Unavailable HAURY, LON Referring Unavailable WISWELL, LEONARDO Attending Unavailable PLOTTS, CORTNEY Attending Unavailable Medications Current Medications Medication Drug Class(es) Dates Sig (Normalized) Sig (Original) amoxicillin 500 mg oral capsule (1 source) Penicillin-class Antibacterial Start: 01-18-2024 End: 01-28-2024 take 1 capsule by mouth twice daily amoxicillin (AMOXIL) 500 mg capsule Indications: Strep throat Take 1 capsule by mouth two times a day for 10 days. 20 capsule 0 01/18/2024 01/28/2024 Active Comment on above: Take 1 capsule by [facility] two times a day for 10 days. aspirin 81 mg delayed release oral tablet (20 sources) Platelet Aggregation Inhibitor, Nonsteroidal Anti-inflammatory Drug Start: 02-18-2023 take 2 tablets by mouth once daily aspirin, enteric coated (ASPIRIN, ENTERIC COATED) 81 mg EC tablet Take 2 tablets by mouth once daily. 60 tablet 5 02/18/2023 Active Comment on above: Take 2 tablets by [facility] once daily. doxylamine succinate 25 mg oral tablet (20 sources) Start: 02-18-2023 take 1 tablet by mouth once daily at bedtime doxylamine (UNISOM, DOXYLAMINE,) 25 mg tab Take 1 tablet by mouth daily at bedtime. 30 tablet 5 02/18/2023 Active Start: 05-29-2018 End: 05-30-2018 take 1 tablet by mouth at bedtime Doxylamine Succinate (Unisom) 25 MG tablet Discontinued 25 MG PO AT BEDTIME May 28, 2018 11:00pm May 30, 2018 3:59am Comment on above: Take 1 tablet by [facility] daily at bedtime. DULoxetine 30 mg delayed release oral capsule (1 source) Serotonin and Norepinephrine Reuptake Inhibitor Start: take 1 capsule by mouth once daily DULoxetine (CYMBALTA) 30 MG extended release capsule Take 1 capsule by mouth daily 30 capsule 0 2020 Active Start: 2020 take 1 capsule by [facility] once daily DULoxetine (CYMBALTA) 30 MG extended release capsule Take 1 capsule by mouth daily 30 capsule 0 2020 Active etonogestrel 68 mg drug implant (4 sources) Progestin Start: 12-28-2023 End: 12-27-2026 etonogestrel (NEXPLANON) subdermal implant 68 mg Indications: Insertion of implantable subdermal contraceptive 1 Each by SUBDERMAL route as directed. 1 Each 12/28/2023 12/27/2026 Active Comment on above: 1 Each by SUBDERMAL route as directed. hydrOXYzine pamoate 50 mg oral capsule (1 source) Antihistamine Start: 10-10-2020 End: 11-09-2020 take 1 capsule by mouth twice daily as needed for anxiety hydrOXYzine (VISTARIL) 50 MG capsule Take 1 capsule by mouth 2 times daily as needed for Anxiety 60 capsule 0 10/10/2020 11/09/2020 Active ibuprofen 600 mg oral tablet (1 source) Nonsteroidal Anti-inflammatory Drug Start: 08-22-2019 take 600 mg by mouth every six hours as needed Ibuprofen Active 600 MG PO EVERY 6 HOURS NEEDED August 21, 2019 11:00pm lactobacillus acidophilus 460 mg oral capsule (20 sources) Start: 02-23-2023 take 1 capsule by mouth once daily Lactobacillus acidophilus (FLORAJEN ACIDOPHILUS) 20 billion cell cap Take 1 capsule by mouth once daily. 30 capsule 02/23/2023 Active Comment on above: Take 1 capsule by [facility] once daily. metroNIDAZOLE 500 mg oral tablet (4 sources) Nitroimidazole Antimicrobial Start: 09-14-2023 End: 09-21-2023 take 1 tablet by mouth twice daily metroNIDAZOLE (FLAGYL) 500 mg tablet Take 1 tablet by mouth two times a day for 7 days. 14 tablet 0 09/14/2023 09/21/2023 Active Start: 02-23-2023 End: 03-02-2023 take 1 tablet by mouth twice daily metroNIDAZOLE (FLAGYL) 500 mg tablet Take 1 tablet by mouth twice daily for 7 days. 14 tablet 0 02/23/2023 03/02/2023 Active Comment on above: Take 1 tablet by marine twice daily for 7 days. Take 1 tablet by marine two times a day for 7 days. ondansetron 4 mg disintegrating oral tablet (5 sources) Serotonin-3 Receptor Antagonist Start: 01-18-20 take 1 tablet by mouth every eight hours as needed for nausea ondansetron orally disintegrating (ZOFRAN ODT) 4 mg disintegrating tablet Indications: Nausea and vomiting, unspecified vomiting type Take 1 tablet by mouth every 8 hours as needed for nausea/vomiting. Wait 20-30 minutes after taking medication to eat or drink. 5 tablet 01/18/2024 Active Start: 09-08-2021 End: 10-07-2023 take 1 tablet by mouth every eight hours Ondansetron Hcl (Zofran) 4 mg tablet Discontinued 4 MG PO Q8H September 08, 2021 12:00am October 07, 2023 8:40am Start: 04-03-2020 take 4 mg by mouth e very eight hours as needed Ondansetron Active 4 MG PO EVERY 8 HOURS NEEDED April 02, 2020 11:00pm Comment on above: Take 1 tablet by marine th every 8 hours as needed for nausea/vomiting. Wait 20-30 minutes after taking medication to eat or drink. [id number] ps-folate 1 29 mg iron- 1 mg chew (20 sources) Start: 02-19-20 23 vy42-rhos ps-folate 1 29 mg iron- 1 mg chew Take 1 tablet by mouth once daily. 30 tablet 5 02/18/2023 Active Comment on above: Take 1 tablet by marine th once daily. Vit,[id number]-Mqoge (Prenatabs Fa) 1 TABLET tablet (1 source) Start: 05-29-20 18 take 1 tablet by mouth once daily Vit,[id number]-D olic (Prenatabs Fa) 1 TABLET tablet Active 1 TABLET PO DAILY May 28, 2018 11:00pm traZODone hydrochloride 50 mg oral tablet (1 source) Serotonin Reuptake Inhibitor Start: 10-10-20 take 1 tablet by mouth once daily as needed for sleep traZODone (DESYREL) 50 MG tablet Take 1 tablet by mouth nightly as needed for Sleep 30 tablet 0 10/10/2020 Active Start: 10-10-2020 take 1 tablet by marine th once daily as needed for sleep traZODone (DESYREL) 50 MG tablet Take 1 tablet by mouth nightly as needed for Sleep 30 tablet 0 10/10/2020 Active Completed/Discontinued Medications Medication Drug Class(es) Dates Sig (Normalized) Sig (Original) cephalexin 500 mg oral capsule (1 source) Cephalosporin Antibacterial Start: 03-04-2019 End: 08-21-2019 take 500 mg by mouth every twelve hours Cephalexin Discontinued 500 MG PO EVERY 12 HOURS March 03, 2019 11:00pm August 21, 2019 12:19pm clonazePAM 0.5 mg oral tablet (1 source) Benzodiazepine End: 10-10-2020 take 1 tablet by mouth twice daily as needed clonazePAM (KLONOPIN) 0.5 MG tablet Take 1 tablet by mouth 2 times daily as needed. 0 10/10/2020 Discontinued (Stop Taking at Discharge) Desogestrel / Ethinyl Estradiol (2 sources) Progestin, Estrogen Start: 03-06-2022 take 1 tablet by mouth once daily, then take 0.15 tablet by mouth once Desogestrel-Ethiny l Estradiol (APRI) 0.15-0.03 mg per tablet Indications: Encounter for BCP ( control pills) initial prescription , General counseling and advice for contraceptive management Take 1 tablet by mouth once daily. 84 tablet 4 03/06/2022 Active Comment on above: Take 1 tablet by marine th once daily. MELATONIN 5 MG GUMMY (1 source) MELATONIN 5 MG GUMMY oxyCODONE hydrochloride 5 mg oral capsule (1 source) Opioid Agonist Start: 09-08-2021 End: 10-07-2023 take 5 mg by mouth every six hours Oxycodone Discontinued 5 MG PO EVERY 6 HOURS 12 3 September 08, 2021 October 07, 2023 8:40am Vitamin with 29 mg Iron ( PLUS) 29 mg iron- 1 mg (2 sources) Start: 09-23-2017 take 1 tablet by mouth once daily Vitamin with 29 mg Iron ( PLUS) 29 mg iron- 1 mg Take 1 tablet by mouth once daily. 90 tablet 0 09/23/2017 Active Comment on above: Take 1 tablet by marine th once daily. QUEtiapine 25 mg oral tablet (1 source) Atypical Antipsychotic End: 10-10-2020 take 1 tablet by mouth twice daily QUEtiapine (SEROQUEL) 25 MG tablet Take 25 mg by mouth 2 times daily 0 10/10/2020 Discontinued (Stop Taking at Discharge) 24 hr venlafaxine 150 mg extended release oral capsule (1 source) Serotonin and Norepinephrine Reuptake Inhibitor Start: 12-12-2019 End: 10-10-2020 take 1 capsule by mouth once daily venlafaxine (EFFEXOR XR) 150 MG extended release capsule Take 150 mg by mouth daily 0 12/12/2019 10/10/2020 Discontinued (Stop Taking at Discharge) Problems Active Problems Problem Classification Problem Date Documented Date Episodic/Chronic Alcohol-related disorders (20 sources) Alcohol abuse; Translations: [Alcohol withdrawal syndrome] Onset: 10-07-2020 10-07-2020 Chronic Anxiety disorders (2 sources) Posttraumatic stress disorder; Translations: [Post-traumatic stress disorder, unspecified] 10-06-2023 Chronic Headache; including migraine (2 sources) Migraine with aura; Translations: [Migraine with aura, not intractable, without status migrainosus] Onset: 09-01-2023 09-01-2023 Chronic Menstrual disorders (1 source) Irregular periods; Translations: [Irregular menstruation, unspecified] Chronic Mood disorders (4 sources) Depressive disorder; Translations: [Bipolar disorder] Onset: 10-06-2020 10-06-2020 Chronic Nausea and vomiting (1 source) Nausea and vomiting; Translations: [Nausea with vomiting, unspecified] 01-18-2024 Episodic Other complications of (1 source) Uncertain viability of ; Translations: [ with inconclusive viability, not applicable or unspecified] Episodic Other complications of (1 source) Spotting per vagina in ; Translations: [Spotting complicating , unspecified trimester] 07-12-2023 Episodic Other female genital disorders (1 source) Vaginal discharge; Translations: [Other specified noninflammatory disorders of vagina] 09-13-2023 Episodic Other liver diseases (1 source) Elevated liver enzymes level; Translations: [Elevated liver enzymes] Onset: 10-07-2020 10-07-2020 Episodic Other upper respiratory infections (1 source) Streptococcal sore throat; Translations: [Streptococcal pharyngitis] 01-18-2024 Episodic Residual codes; unclassified (2 sources) Gestation period, 11 weeks; Translations: [11 weeks gestation of ] Episodic Residual codes; unclassified (1 source) Gestation period, 15 weeks; Translations: [15 weeks gestation of ] Episodic Residual codes; unclassified (2 sources) Gestation period, 20 weeks; Translations: [20 weeks gestation of ] 05-26-2023 Episodic Residual codes; unclassified (1 source) Gestation period, 24 weeks; Translations: [24 weeks gestation of ] 06-23-2023 Episodic Residual codes; unclassified (1 source) Gestation period, 25 weeks; Translations: [25 weeks gestation of ] 06-29-2023 Episodic Residual codes; unclassified (1 source) Gestation period, 27 weeks; Translations: [27 weeks gestation of ] 07-12-2023 Episodic Residual codes; unclassified (1 source) Gestation period, 32 weeks; Translations: [32 weeks gestation of ] 08-18-2023 Episodic Residual codes; unclassified (1 source) Gestation period, 34 weeks; Translations: [34 weeks gestation of ] 09-01-2023 Episodic Residual codes; unclassified (1 source) Gestation period, 36 weeks; Translations: [36 weeks gestation of ] 09-13-2023 Episodic Residual codes; unclassified (2 sources) Gestation period, 37 weeks; Translations: [37 weeks gestation of ] 09-20-2023 Episodic Residual codes; unclassified (1 source) Gestation period, 38 weeks; Translations: [38 weeks gestation of ] 09-27-2023 Episodic Substance-related disorders (1 source) Benzodiazepine dependence; Translations: [Benzodiazepine dependence] Onset: 10-07-2020 10-07-2020 Chronic Unclassified (2 sources) Spontaneous onset of labor; Translations: [Spontaneous onset of labor] 10-06-2023 Unclassified (2 sources) Spontaneous rupture of membranes; Translations: [Spontaneous rupture of amniotic membranes] 10-06-2023 Past or Other Problems Problem Classification Problem Date Documented Date Episodic/Chronic Administrative/social admission (2 sources) Multiparous; Translations: [Problems related to multiparity] 10-06-2023 Episodic Alcohol-related disorders (1 source) Alcohol intoxication; Translations: [Alcohol use, unspecified with intoxication, unspecified] 09-02-2018 Episodic Bacterial infection; unspecified site (2 sources) Bacteria present; Translations: [Streptococcus, group B, as the cause of diseases classified elsewhere] Onset: 05-13-2018 Resolved: 12-15-2018 12-15-2018 Episodic Cancer of cervix (20 sources) Atypical squamous cells of undetermined significance on cervical Papanicolaou smear; Translations: [Atypical squamous cells of undetermined significance on cytologic smear of cervix (ASC-US)] Onset: 11-12-2017 11-12-2017 Episodic Contraceptive and procreative management (20 sources) Patient encounter status; Translations: [Encounter for initial prescription of contraceptive pills] Onset: 07-21-2023 Episodic Early or threatened labor (3 sources) Jonathan Soto contractions; Translations: [False labor, unspecified] Onset: 08-19-2019 Resolved: 09-08-2021 09-01-2023 Episodic Hemorrhage during ; abruptio placenta; placenta previa (8 sources) Bleeding from female genital tract during ; Translations: [Antepartum hemorrhage, unspecified, unspecified trimester] Onset: 2017 Resolved: 02-19-2023 09-08-2021 Episodic Other complications of (16 sources) Anemia in mother complicating , childbirth AND/OR puerperium; Translations: [Anemia complicating , third trimester] Onset: 08-18-2023 Resolved: 11-24-2023 08-18-2023 Chronic Other complications of (4 sources) Finding of pattern of ; Translations: [Supervision of other high risk pregnancies, unspecified trimester] Onset: 12-08-2018 Resolved: 02-19-2023 12-08-2018 Episodic Other complications of (20 sources) H/O: miscarriage; Translations: [Supervision of with other poor reproductive or obstetric history, unspecified trimester] Onset: 02-15-2023 Resolved: 11-24-2023 Episodic Other complications of (20 sources) High risk ; Translations: [Supervision of high risk , unspecified, first trimester] Onset: 02-19-2023 02-19-2023 Episodic Other complications of (1 source) Supervision of high risk , unspecified, third trimester; Translations: [Supervision of high risk in third trimester] Onset: 09-20-2023 Episodic Other complications of (2 sources) with inconclusive viability, not applicable or unspecified; Translations: [Encounter to determine viability of , single or unspecified fetus] Onset: 03-04-2023 Episodic Other female genital disorders (1 source) Other specified noninflammatory disorders of vagina; Translations: [Vaginal discharge] Onset: 04-05-2023 Episodic Other nutritional; endocrine; and metabolic disorders (20 sources) H/O: thyroid disorder; Translations: [Personal history of other endocrine, nutritional and metabolic disease] Onset: 2017 12-08-2018 Episodic Other nutritional; endocrine; and metabolic disorders (2 sources) Personal history of other endocrine, nutritional and metabolic disease; Translations: [History of thyroid disease] Onset: 02-15-2023 Episodic Other and delivery including normal (15 sources) Intact membranes; Translations: [Encounter for supervision of normal , unspecified, unspecified trimester] Onset: 11-29-2017 Resolved: 02-19-2023 08-19-2019 Episodic Other screening for suspected conditions (not mental disorders or infectious disease) (2 sources) Encounter for other screening follow-up; Translations: [Encounter for screening for nuchal translucency] Onset: 03-25-2023 Episodic Polyhydramnios and other problems of amniotic cavity (5 sources) Subchorionic hematoma; Translations: [Other specified disorders of amniotic fluid and membranes, first trimester, not applicable or unspecified] Onset: 09-08-2021 Resolved: 02-19-2023 09-08-2021 Episodic Residual codes; unclassified (20 sources) Finding of menstrual bleeding; Translations: [Other specified health status] Onset: 02-19-2023 02-19-2023 Episodic Residual codes; unclassified (2 sources) Gestation period, 39 weeks; Translations: [39 weeks gestation of ] 10-05-2023 Episodic Residual codes; unclassified (2 sources) Gestation period, 40 weeks; Translations: [40 weeks gestation of ] Onset: 08-19-2019 Resolved: 09-08-2021 10-21-2021 Episodic Residual codes; unclassified (1 source) 24 weeks gestation of ; Translations: [24 weeks gestation of ] Onset: 07-21-2023 Episodic Residual codes; unclassified (1 source) 20 weeks gestation of ; Translations: [20 weeks gestation of ] Onset: 05-26-2023 Episodic Residual codes; unclassified (1 source) 15 weeks gestation of ; Translations: [15 weeks gestation of ] Onset: 05-26-2023 Episodic Residual codes; unclassified (1 source) 8 weeks gestation of ; Translations: [8 weeks gestation of ] Onset: 03-25-2023 Episodic Residual codes; unclassified (1 source) 11 weeks gestation of ; Translations: [11 weeks gestation of ] Onset: 03-25-2023 Episodic Residual codes; unclassified (1 source) 39 weeks gestation of ; Translations: [ state, incidental] 10-07-2023 Episodic Screening and history of mental health and substance abuse codes (20 sources) Stopped smoking; Translations: [Personal history of nicotine dependence] Onset: 2017 Resolved: 02-19-2023 2017 Episodic Sexually transmitted infections (not HIV or hepatitis) (1 source) Cervical high risk human papillomavirus (HPV) DNA test positive; Translations: [ASCUS with positive high risk HPV cervical] Onset: 04-05-2023 Episodic Spontaneous (1 source) Miscarriage; Translations: [Complete or unspecified spontaneous without complication] 09-08-2021 Episodic Substance-related disorders (7 sources) Cigarette smoker ; Translations: [Marijuana user] Onset: 11-29-2017 Resolved: 02-19-2023 10-07-2020 Episodic Suicide and intentional self-inflicted injury (3 sources) Suicidal thoughts; Translations: [Suicide attempt by inadequate means] Onset: 10-06-2020 10-06-2020 Episodic Results Test Name Value Interpretation Reference Range Facil ity CNCOon 02-17-2024 CNCO Letter Text Normal [facility] CNPNon 02-15-2024 CNPN Telephone (WHQ) ERICA TORO ([id number]) 1995 F Date Time Provider Department 02/15/24 CARRIE FERNANDEZ WHQ During your visit today, we recorded the following information about you: Daquan Nenita 02/17/2024 11:54 AM Addendum 1st attempt to contact the patient to schedule colposcopy. Unable to reach patient, phone line unable to take calls at this time. Will attempt at later time. Nenita Butt [facility] Nenita Pena 02/17/2024 11:55 AM Signed 2nd attempt to contact the patient to schedule colposcopy. [facility] sent 01/10- not read Unable to leave [facility], phone not in service. A letter will be mailed to home. Nenita [facility] Allergies As of Date: 02/15/2024 (No Known Allergies) Date Reviewed: 01/18/2024 Reviewed by: Lakeisha Fortune APRN.RESIDENTIAL HOUSEKEEPER - Fully Assessed Prescriptions as of 02/17/2024 - ondansetron orally disintegrating (ZOFRAN ODT) 4 mg disintegrating tablet Take 1 tablet by mouth every 8 hours as needed for nausea/vomiting. Wait 20-30 minutes after taking medication to eat or drink. - etonogestrel (NEXPLANON) subdermal implant 68 mg 1 Each by SUBDERMAL route as directed. - Lactobacillus acidophilus (FLORAJEN ACIDOPHILUS) 20 billion cell cap Take 1 capsule by mouth once daily. - doxylamine (UNISOM, DOXYLAMINE,) 25 mg tab Take 1 tablet by mouth daily at bedtime. - nw15-alct ps-folate 1 29 mg iron- 1 mg chew Take 1 tablet by mouth once daily. - aspirin, enteric coated (ASPIRIN, ENTERIC COATED) 81 mg EC tablet Take 2 tablets by mouth once daily. Problem List As Of Date 02/15/2024 Noted Resolved Bleeding in early [O20.9] 2017 11/12/2017 Quit smoking [Z87.891] 2017 02/19/2023 History of thyroid disorder [Z86.39] 2017 Patient request for diagnostic testing [Z01.89] 2017 Atypical squamous cell changes of undetermined *11/12/2017 Normal in first trimester [Z34.91] 11/29/2017 12/15/2018 High risk due to maternal drug abuse,*11/29/2017 12/15/2018 Positive GBS test [B95.1] 05/13/2018 12/15/2018 Short interval between pregnancies affecting pr*12/08/2018 02/19/2023 History of bipolar disorder [Z86.59] 12/08/2018 Marijuana use [F12.90] 07/25/2019 02/19/2023 40 weeks gestation of [Z3A.40] 08/19/2019 09/08/2021 Intact amniotic membranes [Z34.90] 08/19/2019 02/19/2023 Threatened labor at term [O47.9] 08/19/2019 09/08/2021 Subchorionic hematoma in first trimester [O41.8*09/08/2021 02/19/2023 Vaginal bleeding during [O46.90] 09/08/2021 02/19/2023 Current with history of spontaneous a*02/15/2023 11/24/2023 History of alcohol abuse [F10.11] 02/15/2023 History of posttraumatic stress disorder (PTSD)*02/18/2023 Supervision of high risk in first tri*02/19/2023 Date of last menstrual period (LMP) unknown [Z7*02/19/2023 ASCUS with positive high risk HPV cervical [R87*02/26/2023 Encounter for initial prescription of implantab*07/21/2023 Anemia complicating , third trimester *08/18/2023 11/24/2023 Encounter Status:Closed by NENITA PENA on 02/17/24 [facility] CNOVon 01-18-2024 CNOV Office Visit (WALKWA) ERICA TORO ([id number]) 1995 F Date Time Provider Department 01/18/24 8:15 AM LAKEISHA FORTUNE During your visit today, we recorded the following information about you: Temperature Pulse Respiration Blood pressure 98.6 degrees 97/minute 16/minute 125/86 Weight 70 kg Lakeisha Fortune APRN.RESIDENTIAL HOUSEKEEPER 01/18/2024 8:44 AM Addendum Express Care Visit SUBJECTIVE Erica Toro is a 28 year old female who presents with 2 day(s)of symptoms that are worsening. Symptoms include: Fever (?100.4F): Yes - tactile Chills: Yes Cough: Yes Shortness of breath: No or Wheezing: No Fatigue: Yes Muscle aches: Yes Headache: Yes Sore throat: Yes Ear pain: Yes - bilateral Nasal congestion: Yes or Rhinorrhea: Yes Nausea: Yes or Vomiting: Yes - 3 times over past 2 days. Diarrhea: Yes OTC meds/remedies that patient has tried: dayquil. Exposures: Sick contacts? Yes - daughter has vomiting and rash. No antibiotic use in past 3 months. LMP - now. etonogestrel (NEXPLANON) subdermal implant 68 mg 1 Each by SUBDERMAL route as directed. Lactobacillus acidophilus (FLORAJEN ACIDOPHILUS) 20 billion cell cap Take 1 capsule by mouth once daily. (Patient not taking: Reported on 11/24/2023) doxylamine (UNISOM, DOXYLAMINE,) 25 mg tab Take 1 tablet by mouth daily at bedtime. (Patient not taking: Reported on 11/24/2023) va26-ecoy ps-folate 1 29 mg iron- 1 mg chew Take 1 tablet by mouth once daily. (Patient not taking: Reported on 11/24/2023) aspirin, enteric coated (ASPIRIN, ENTERIC COATED) 81 mg EC tablet Take 2 tablets by mouth once daily. 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 Constitutional: General: She is not in acute distress. Appearance: Normal appearance. She is not toxic-appearing. HENT: Right Ear: Ear canal normal. A middle ear effusion is present. Tympanic membrane is not erythematous or bulging. Left Ear: Ear canal normal. A middle ear effusion is present. Tympanic membrane is not erythematous or bulging. Nose: No mucosal edema. Right Sinus: No maxillary sinus tenderness or frontal sinus tenderness. Left Sinus: No maxillary sinus tenderness or frontal sinus tenderness. Mouth/Throat: Lips: Pelzer. No lesions. Mouth: Mucous membranes are moist. No oral lesions. Pharynx: Oropharynx is clear. Uvula midline. Posterior oropharyngeal erythema present. No pharyngeal swelling, oropharyngeal exudate or uvula swelling. Tonsils: No tonsillar exudate or tonsillar abscesses. 1+ on the right. 1+ on the left. Cardiovascular: Rate and Rhythm: Normal rate and regular rhythm. Heart sounds: Normal heart sounds. Pulmonary: Effort: Pulmonary effort is normal. No accessory muscle usage or respiratory distress. Breath sounds: Normal breath sounds and air entry. No decreased air movement. No decreased breath sounds, wheezing, rhonchi or rales. Lymphadenopathy: Head: Right side of head: Submandibular adenopathy present. Left side of head: Submandibular adenopathy present. Cervical: Cervical adenopathy present. Right cervical: Superficial cervical adenopathy present. No posterior cervical adenopathy. Left cervical: Superficial cervical adenopathy present. No posterior cervical adenopathy. Skin: General: Skin is warm and dry. Capillary Refill: Capillary refill takes less than 2 seconds. Neurological: Mental Status: She is alert and oriented to person, place, and time. BP 125/86 Pulse 97 Temp 37 ?C (98.6 ?F) (Tympanic) Resp 16 Wt 70 kg (154 lb 5.2 oz) LMP 12/20/2023 SpO2 96% BMI 24.17 kg/m2 ASSESSMENT/PLAN: Encounter Diagnosis ICD-10-CM 1. Strep throat J02.0 amoxicillin (AMOXIL) 500 mg capsule STREP A MOLECULAR (POC) 2. Nausea and vomiting, unspecified vomiting type R11.2 ondansetron orally disintegrating (ZOFRAN ODT) 4 mg disintegrating tablet Results for orders placed or performed in visit on 01/18/24 STREP A MOLECULAR (POC) Specimen: THROAT SWAB Result Value Ref Range Strep A (POCT) Positive (A) Negative Procedural Control Valid - Change toothbrush after 3 days to avoid reinfection. - Discussed supportive care treatment with fluids, rest and analgesia. - The patient may also use OTC decongestants prn, OTC co (more content not included)... Normal [facility] STREP A MOLECULAR (POC)on Procedural Control Valid [facility] Strep A (POCT) Positive Abnormal Negative [facility] ERICA TORO ([id number]) 1995 F Date Time Provider Department 01/03/24 GRACY RIVAS [facility]BG[facility] During your visit today, we recorded the following information about you: Cherelle An 01/03/2024 11:13 AM Signed Patient called and left voicemail on general surgeons voicemail regarding colposcopy. Patient stated she wishes to cancel for procedure today due to all kids being sick. She would like to be called to reschedule and go over some questions and concerns she has as she is worried about undergoing the procedure Please review and advise patient Colposcopy cancelled for today 01/03/2024 Anahy Wood RN 01/03/2024 12:09 PM Signed Attempted to call patient. Unable to leave message because voicemail is not setup. EMILY Roque Danielle, RN 01/11/2024 10:54 AM Signed Second attempt to contact patient. Unable to leave message due to voicemail not being set up. EMILY Hawkins Trisha, RN 01/25/2024 3:23 PM Addendum 3rd attempt and patient has not read [employer] message. Unable to leave message because voicemail is not set up. Letter sent via [employer] and mail. Anahy Wood RN Allergies As of Date: 01/03/2024 (No Known Allergies) Date Reviewed: 12/28/2023 Reviewed by: Priyanka Doe LPN - Fully Assessed Reason for Visit: Appointment [186] Patient Update [1234] Prescriptions as of 01/25/2024 - amoxicillin (AMOXIL) 500 mg capsule Take 1 capsule by mouth two times a day for 10 days. - ondansetron orally disintegrating (ZOFRAN ODT) 4 mg disintegrating tablet Take 1 tablet by mouth every 8 hours as needed for nausea/vomiting. Wait 20-30 minutes after taking medication to eat or drink. - etonogestrel (NEXPLANON) subdermal implant 68 mg 1 Each by SUBDERMAL route as directed. - Lactobacillus acidophilus (FLORAJEN ACIDOPHILUS) 20 billion cell cap Take 1 capsule by mouth once daily. - doxylamine (UNISOM, DOXYLAMINE,) 25 mg tab Take 1 tablet by mouth daily at bedtime. - xt27-vcus ps-folate 1 29 mg iron- 1 mg chew Take 1 tablet by mouth once daily. - aspirin, enteric coated (ASPIRIN, ENTERIC COATED) 81 mg EC tablet Take 2 tablets by mouth once daily. Problem List As Of Date 01/03/2024 Noted Resolved Bleeding in early [O20.9] 2017 11/12/2017 Quit smoking [Z87.891] 2017 02/19/2023 History of thyroid disorder [Z86.39] 2017 Patient request for diagnostic testing [Z01.89] 2017 Atypical squamous cell changes of undetermined *11/12/2017 Normal in first trimester [Z34.91] 11/29/2017 12/15/2018 High risk due to maternal drug abuse,*11/29/2017 12/15/2018 Positive GBS test [B95.1] 05/13/2018 12/15/2018 Short interval between pregnancies affecting pr*12/08/2018 02/19/2023 History of bipolar disorder [Z86.59] 12/08/2018 Marijuana use [F12.90] 07/25/2019 02/19/2023 40 weeks gestation of [Z3A.40] 08/19/2019 09/08/2021 Intact amniotic membranes [Z34.90] 08/19/2019 02/19/2023 Threatened labor at term [O47.9] 08/19/2019 09/08/2021 Subchorionic hematoma in first trimester [O41.8*09/08/2021 02/19/2023 Vaginal bleeding during [O46.90] 09/08/2021 02/19/2023 Current with history of spontaneous a*02/15/2023 11/24/2023 History of alcohol abuse [F10.11] 02/15/2023 History of posttraumatic stress disorder (PTSD)*02/18/2023 Supervision of high risk in first tri*02/19/2023 Date of last menstrual period (LMP) unknown [Z7*02/19/2023 ASCUS with positive high risk HPV cervical [R87*02/26/2023 Encounter for initial prescription of implantab*07/21/2023 Anemia complicating , third trimester *08/18/2023 11/24/2023 Letter Text Encounter Status:Closed by CHERELLE AN on 01/03/24 Normal [facility] CNOVon 12-28-2023 CNOV Office Visit (OBGYWM) ERICA TORO ([id number]) 1995 F Date Time Provider Department 12/28/23 11:40 AM KARI RAMOS During your visit today, we recorded the following information about you: Blood pressure Weight Last Period 100/62 70.8 kg 12/20/23 Kari Ramos MD 12/28/2023 12:18 PM Signed Child Care Nurse offered: Patient declines. Erica is a 28 year old patient who presents for Nexplanon insertion. Patient's last menstrual period was 12/20/2023. VITALS: Wt 156 lb (70.8kg) LMP 12/20/2023 LMP last weeks however has been sexually active not using BC. Negative test today however that does not guarantee conception has not already occurred. Reviewed that possibility with patient. She would like to procedure with placement with the understanding that it will need to be removed if positive occurs test: negative Nexplanon lot #: [id number] Exp date: 09/23/25 [facility][NOTE 3]: [id number] UNIVERSAL PROTOCOL / SAFETY CHECKLIST Procedure to be Performed: Nexplanon insertion Sign In: A Moment of CARE was completed. No special equipment needed. Patient/Surrogate Stated/Verified: PATIENT VERIFIED(optional for EMERGENT procedures): Patient name, Date of , Relevant allergies, and The intended procedure Time Out Communication: Intended patient and procedure match the source documents. Consent documented and matches the intended procedure. Relevant labs, photos, and/or imaging studies have been reviewed. Medications required for procedure verified. Implant(s) inserted: Correct implant(s) confirmed including size and side. and Expiration date(s) reviewed. Sign Out: SIGN OUT (optional for EMERGENT procedures): No specimen collected. Post-procedure follow-up management communicated and Plan of Care Visit completed when applicable. Priyanka Doe LPN TECHNIQUE: Patient placed in supine position with right) bent at the elbow and placed over the head. Skin cleansed with betadine. 1.5mL of 1% lidocaine with 1:100,000 epi injected subQ along insertion site. Nexplanon olena inserted under sterile technique. After insertion by the provider, the olena was palpable under the skin by both patient and provider. Steristrips and sterile pressure dressing applied. AANDP: Nexplanon inserted without complications. Patient user card was filled out and given to the patient. The patient was instructed to remove the dressing after 24 hours. Advised to use backup contraception for 7 days. MD Richard Santiago Jennifer, MD 12/28/2023 12:11 PM Addendum NEXPLANON PATIENT EDUCATION You may remove dressing in 24 hours. Expect some bruising around insertion site. You may take over the counter pain medication (i.e. Tylenol, motrin, advil, etc) if you have discomfort. Call your provider with excessive bruising or pain. Continue to use condoms for STD prevention. You should use backup contraception for 7 days to prevent Referring Provider: GRACY RIVSA [[id number]] Allergies As of Date: 12/28/2023 (No Known Allergies) Date Reviewed: 12/28/2023 Reviewed by: Priyanka Doe LPN - Fully Assessed Reason for Visit: nexplanon insertion [Other] Primary Visit Diagnosis:Insertion of implantable subdermal contraceptive [Z30.017] Order(s):NEXPLANON INSERTION [[id number]] Order #: [id number] [] etonogestrel subdermal implant 68 mg (NEXPLANON)Disp: Rfl: etonogestrel (NEXPLANON) subdermal implant 68 mg1 Each by SUBDERMAL route as directed.Disp: 1 EachRfl: 0 UA DIP,URINE HCG (POC) [[id number]] Order #: [id number]. #:[id number] Prescriptions as of 12/28/2023 - etonogestrel (NEXPLANON) subdermal implant 68 mg 1 Each by SUBDERMAL route as directed. - Lactobacillus acidophilus (FLORAJEN ACIDOPHILUS) 20 billion cell cap Take 1 capsule by mouth once daily. - doxylamine (UNISOM, DOXYLAMINE,) 25 mg tab Take 1 tablet by mouth daily at bedtime. - to07-ehue ps-folate 1 29 mg iron- 1 mg chew Take 1 tablet by mouth once daily. - aspirin, enteric coated (ASPIRIN, ENTERIC COATED) 81 mg EC tablet Take 2 tablets by mouth once daily. Problem List As Of Date 12/28/2023 Noted Resolved Bleeding in early [O20.9] 2017 11/12/2017 Quit smoking [Z87.891] 2017 02/19/2023 History of thyroid disorder [Z86.39] 2017 Patient request for diagnostic testing [Z01.89] 2017 Atypical squamous cell changes of undetermined *11/12/2017 Normal in first trimester [Z34.91] 11/29/2017 12/15/2018 High risk due to maternal drug abuse,*11/29/2017 12/15/2018 Positive GBS test [B95.1] 05/13/2018 12/15/2018 Short interval between pregnancies affecting pr*12/08/2018 02/19/2023 History of bipolar disorder [Z86.59] 12/08/2018 Marijuana use [F12.90] 07/25/2019 02/19/2023 40 weeks gestation of pre (more content not included)... Normal [facility] CNCOon 12-06-2023 CNCO Letter Text Normal [facility] CNPNon 12-06-2023 CNPN Telephone (OBGYWM) ERICA TORO ([id number]) 1995 F Date Time Provider Department 12/06/23 GRACY RIVAS During your visit today, we recorded the following information about you: Marii Gonsales RN 12/06/2023 2:10 PM Signed ----- Message from Gracy Ross MD sent at 12/06/2023 1:24 PM EST ----- Ascus-H and HPV + , needs colposcopy scheduled. Marii Gonsales RN 12/06/2023 2:15 PM Signed Attempted to contact patient but number listed for patient is currently not accepting calls. [employer] message and letter sent. Appointment note for upcoming appointment tomorrow updated to notify of results. EMILY More Danielle, RN 12/16/2023 3:12 PM Signed Attempted to call patient again but phone number is still not accepting calls. EMILY Hawkins Lindsey, RN 12/21/2023 10:56 AM Signed Third attempt to contact patient. Number not working. Letter sent. EMILY More Trisha, RN 12/24/2023 8:31 AM Signed Patient notified and colposcopy scheduled for 01/02 with DM. Anahy Wood RN Allergies As of Date: 12/06/2023 (No Known Allergies) Date Reviewed: 11/24/2023 Reviewed by: Pat Nguyễn MA - Fully Assessed Reason for Visit: Abnormal Pap [273] Prescriptions as of 12/24/2023 - Lactobacillus acidophilus (FLORAJEN ACIDOPHILUS) 20 billion cell cap Take 1 capsule by mouth once daily. - doxylamine (UNISOM, DOXYLAMINE,) 25 mg tab Take 1 tablet by mouth daily at bedtime. - zi98-kgnu ps-folate 1 29 mg iron- 1 mg chew Take 1 tablet by mouth once daily. - aspirin, enteric coated (ASPIRIN, ENTERIC COATED) 81 mg EC tablet Take 2 tablets by mouth once daily. Problem List As Of Date 12/06/2023 Noted Resolved Bleeding in early [O20.9] 2017 11/12/2017 Quit smoking [Z87.891] 2017 02/19/2023 History of thyroid disorder [Z86.39] 2017 Patient request for diagnostic testing [Z01.89] 2017 Atypical squamous cell changes of undetermined *11/12/2017 Normal in first trimester [Z34.91] 11/29/2017 12/15/2018 High risk due to maternal drug abuse,*11/29/2017 12/15/2018 Positive GBS test [B95.1] 05/13/2018 12/15/2018 Short interval between pregnancies affecting pr*12/08/2018 02/19/2023 History of bipolar disorder [Z86.59] 12/08/2018 Marijuana use [F12.90] 07/25/2019 02/19/2023 40 weeks gestation of [Z3A.40] 08/19/2019 09/08/2021 Intact amniotic membranes [Z34.90] 08/19/2019 02/19/2023 Threatened labor at term [O47.9] 08/19/2019 09/08/2021 Subchorionic hematoma in first trimester [O41.8*09/08/2021 02/19/2023 Vaginal bleeding during [O46.90] 09/08/2021 02/19/2023 Current with history of spontaneous a*02/15/2023 11/24/2023 History of alcohol abuse [F10.11] 02/15/2023 History of posttraumatic stress disorder (PTSD)*02/18/2023 Supervision of high risk in first tri*02/19/2023 Date of last menstrual period (LMP) unknown [Z7*02/19/2023 ASCUS with positive high risk HPV cervical [R87*02/26/2023 Encounter for initial prescription of implantab*07/21/2023 Anemia complicating , third trimester *08/18/2023 11/24/2023 Encounter Status:Closed by MARII GONSALES on 12/21/23 Normal [facility] HPV W/GENOTYPE THIN PREPon 0 11-24-2023 HPV 16 Ag Ql (Unsp spec) Negative Normal Negative for HPV DNA high risk type 16 by PCR [facility] Comment on above: Order Comment: Speci men Type: FLUID SPECIMEN Ordering Facility: [facility] Address: [address] [place] [address] Performed By: #### H PVHRT, [id number] #### [facility] CLIA [id number] [address] [place] [address] [place] HPV 18 Ag Ql (Unsp spec) Negative Normal Negative for HPV DNA high risk type 18 by PCR [facility] Comment on above: Order Comment: Speci men Type: FLUID SPECIMEN Ordering Facility: [facility] Address: [address] [place] [address] Performed By: #### H PVHRT, [id number] #### [facility] CLIA [id number] [address] [place] [address] [place] HPV 31+33+35+39+45+51+52+56 +58+59+66+68 DNA ODILON+probe Ql (Cvx) Positive for one or more of the following HPV DNA high risk types:31,33,35,39,45 ,51,52,56,58,59,66,6 8 by PCR Abnormal Negative for HPV DNA high risk types: 31,33,35,39,45,5 1,52,56,58,59,66 ,68 by PCR. [facility] Comment on above: Order Comment: Speci men Type: FLUID SPECIMEN Ordering Facility: [facility] Address: [address] [place] [address] Performed By: #### H PVHRT, [id number] #### [facility] CLIA [id number] [address] [place] [address] [place] PAP TESTon 11-24-2023 ADEQUACY Satisfactory for interpretation Normal [facility] Comment on above: Order Comment: Speci men Type: FLUID SPECIMEN Ordering Facility: [facility] Address: [address] [place] [address] Performed By: #### H PVHRT, [id number] #### [facility] CLIA [id number] [address] [place] [address] [place] CASE REPORT Normal [facility] Comment on above: Order Comment: Speci men Type: FLUID SPECIMEN Ordering Facility: [facility] Address: [address] [place] [address] Result Comment: Gyne cologic Cytology Report Case: [id number] Authorizing Provider: Gracy Rivas, Collected: 11/24/2023 04:46 PM Ordering Location: OB/Gynecology Received: 11/25/2023 08:50 AM First Screen: Cathy Cosby, CT, ASCP Pathologist: Kisha Fox MD Specimen: Pap Test, ThinPrep, Cervix Performed By: #### H PVHRT, [id number] #### [facility] CLIA [id number] [address] [place] [address] [place] CLINICAL HISTORY, CYTOLOGY, 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 Normal [facility] Comment on above: Order Comment: Speci men Type: FLUID SPECIMEN Ordering Facility: [facility] Address: [address] [place] [address] Performed By: #### H PVHRT, [id number] #### [facility] CLIA [id number] [address] [place] [address] [place] DIAGNOSIS COMMENT Suggest colposcopy/biopsy as clinically indicated. Results from the ASCUS/LSIL triage study found that interpretations of ASC-H were associated with a higher risk of underlying HSIL (JAMIE 2 or worse; 30-40%). Normal [facility] Comment on above: Order Comment: Speci men Type: FLUID SPECIMEN Ordering Facility: [facility] Address: [address] [place] [address] Performed By: #### H PVHRT, [id number] #### [facility] CLIA [id number] [address] [place] [address] [place] FINAL PERFORMING LAB Normal [facility] Comment on above: Order Comment: Speci men Type: FLUID SPECIMEN Ordering Facility: [facility] Address: [address] [place] [address] Result Comment: Tech nical component, home visit field care manager screening performed at [facility], [address] [place], [place] [id number] CLIA# [id number] Diagnostic interpretation performed at [facility], [address] [place] [address] CLIA# [id number] Mat Packer: Russell Davila M.D. Performed By: #### H PVHRT, [id number] #### [facility] CLIA [id number] [address] [place], [place] [id number] [place] HPV REFLEX Yes HPV Normal [facility] Comment on above: Order Comment: Speci men Type: FLUID SPECIMEN Ordering Facility: [facility] Address: [address] [place] [address] Performed By: #### H PVHRT, [id number] #### [facility] CLIA [id number] [address] [place] [address] [place] INTERPRETATION, CYTOLOGY, 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 Abnormal [facility] Comment on above: Order Comment: Speci men Type: FLUID SPECIMEN Ordering Facility: [facility] Address: [address] [place] [address] Result Comment: Atyp ical squamous cells cannot exclude high grade squamous intraepithelial lesion (ASC-H); see comment. Performed By: #### H PVHRT, [id number] #### [facility] CLIA [id number] [address] [place] [address] [place] PAP DISCLAIMER COMMENT The Pap Smear is a screening test for cervical cancer. False negative results occur with all screening tests, emphasizing the need for rescreening at recommended intervals, and clinical correlation. Normal [facility] Comment on above: Order Comment: Speci men Type: FLUID SPECIMEN Ordering Facility: [facility] Address: [address] [place] [address] Performed By: #### H PVHRT, [id number] #### [facility] CLIA [id number] [address] [place] [address] [place] PAP GENERAL CATEGORIZATION Epithelial Cell Abnormality Normal [facility] Comment on above: Order Comment: Speci men Type: FLUID SPECIMEN Ordering Facility: [facility] Address: [address] [place] [address] Performed By: #### H PVHRT, [id number] #### [facility] CLIA [id number] [address] [place] [address] [place] Absolute lymphocyte countOrd ered By: Cortney Cash on 10-06-2023 Lymphocytes Auto (Unsp spec) [#/Vol] 1.20 10*3/uL 0.83-4.51 [facility] Basophil percentageOrdered B y: Cortney Cash on 10-06-2023 Basophils/100 WBC (Bld) 0.3 % 0-1 [facility] Eosinophils/100 WBC (Bld) 0.5 % 0-5 [facility] Neutrophils (Bld) [#/Vol] 7.8 10*3/uL 2.0-7.7 [facility] Neutrophils/100 WBC (Bld) 81.4 % 47-70 [facility] WBC (Bld) [#/Vol] 9.6 10*3/uL 4.4-11.0 [facility] Blood erythrocytes count (nu mber/volume)Ordered By: Cortney Cash on 10-06-2023 RBC (Bld) [#/Vol] 5.07 10*6/uL 4.2-5.4 [facility] Blood hemoglobin measurement (mass/volume)Ordered By: Cortney Cash on 10-06-2023 Hemoglobin (Bld) [Mass/Vol] 11.4 g/dL 12.0-15.0 [facility] Blood lymphocytes/100 leukoc ytesOrdered By: Cortney Cash on 10-06-2023 Lymphocytes/100 WBC (Bld) 12.5 % 19-41 [facility] Blood monocytes/100 leukocyt esOrdered By: Cortney Cash on 10-06-2023 Monocytes/100 WBC (Bld) 5.0 % 0-10 [facility] Blood platelet mean volumeOr dered By: Cortney Cash on 10-06-2023 Platelet mean volume (Bld) [Entitic vol] 11.8 fL 6.2-12.0 [facility] CBC W/Diff, Automatedon 09-24 Absolute Lymph 1.20 X10 3/uL Normal 0.83-4.51 [facility] Comment on above: Performed By: #### B TS, L100.0100 #### [facility] [place], [address] Absolute Neut 7.8 X10 3/uL High 2.0-7.7 [facility] Comment on above: Performed By: #### Donny DELUNA, L100.0100 #### [facility] [address] [place], [address] Basophils/100 WBC (Bld) 0.3 % Normal 0-1 [facility] Comment on above: Performed By: #### Donny DELUNA, L100.0100 #### [facility] [address] [place], [address] Eosinophils/100 WBC (Bld) 0.5 % Normal 0-5 [facility] Comment on above: Performed By: #### Donny DELUNA, L100.0100 #### [facility] [address] [place], [address] Erythrocyte distribution width (RBC) [Ratio] 17.4 % High 11.6-14.6 [facility] Comment on above: Performed By: #### Donny DELUNA, L100.0100 #### [facility] [address] [place], [address] Hematocrit (Bld) [Volume fraction] 37.4 % Normal 37-47 [facility] Comment on above: Performed By: #### Donny DELUNA, L100.0100 #### [facility] [address] [place], [address] Hemoglobin (Bld) [Mass/Vol] 11.4 g/dL Low 12.0-15.0 [facility] Comment on above: Performed By: #### Donny DELUNA, L100.0100 #### [facility] [address] [place], [address] IG% 0.300 Normal 0.0-0.9 [facility] Comment on above: Result Comment: IG% - Immature Granulocytes (promyelocytes, myelocytes and metamyelocytes) > 1% indicates that a LEFT SHIFT is Present. Performed By: #### Donny DELUNA, L100.0100 #### [facility] [address] [place], [address] Lymphocytes/100 WBC (Bld) 12.5 % Low 19-41 [facility] Comment on above: Performed By: #### Donny DELUNA, L100.0100 #### [facility] [address] [place], [address] MCH (RBC) [Entitic mass] 22.5 pg Low 27.0-32.0 [facility] Comment on above: Performed By: #### Donny DELUNA, L100.0100 #### [facility] [address] [place], [address] MCHC (RBC) [Mass/Vol] 30.5 g/dL Low 32-36 [facility] Comment on above: Performed By: #### Donny DELUNA, L100.0100 #### [facility] [address] [place], [address] MCV (RBC) [Entitic vol] 73.8 fL Low 81-99 [facility] Comment on above: Performed By: #### Donny DELUNA, L100.0100 #### [facility] [address] [place], [address] Monocytes/100 WBC (Bld) 5.0 % Normal 0-10 [facility] Comment on above: Performed By: #### Donny DELUNA, L100.0100 #### [facility] [address] [place], [address] Neutrophils/100 WBC (Bld) 81.4 % High 47-70 [facility] Comment on above: Performed By: #### Donny DELUNA, L100.0100 #### [facility] [address] [place], [address] Nucleated RBC (Bld) [#/Vol] 0 10*3/uL Normal 0-5 [facility] Comment on above: Performed By: #### Donny DELUNA, L100.0100 #### [facility] [address] [place], [address] Platelet mean volume (Bld) [Entitic vol] 11.8 fL Normal 6.2-12.0 [facility] Comment on above: Performed By: #### Donny DELUNA, L100.0100 #### [facility] [address] [place], [address] Platelets (Bld) [#/Vol] 180 10*3/uL Normal 150-450 [facility] Comment on above: Performed By: #### Donny DELUNA, L100.0100 #### [facility] [address] [place], [address] RBC (Bld) [#/Vol] 5.07 10*6/uL Normal 4.2-5.4 [facility] Comment on above: Performed By: #### Donny DELUNA, L100.0100 #### [facility] [address] [place], [address] RDW SD 45.9 fl High 35.1-43.9 [facility] Comment on above: Performed By: ###Toby DELUNA, L100.0100 #### [facility] [address] [place], [address] WBC (Bld) [#/Vol] 9.6 10*3/uL Normal 4.4-11.0 [facility] Comment on above: Performed By: #### Donny DELUNA, L100.0100 #### [facility] [address] [place], [address] Cara 10-06-2023 MARCOS Telephone (OBGYWM) CORTEZERICA Joaquin ([id number]) 1995 F Date Time Provider Department 10/06/23 CORTNEY CASH During your visit today, we recorded the following information about you: Marii Gonsales RN 10/06/2023 10:10 AM Signed Patient 39w5d calling with complaints of regular contractions. Patient states contractions started at 0830 and have been every 5 minutes since 0915 and lasting 1 minute. Patient also complaining of increased pelvic pressure. Denies any leaking, bleeding or decreased movement. Patient seen in office yesterday and was 3.5/80%/-2. [facility] called and notified. EMILY Zepeda Danielle, RN 10/06/2023 10:13 AM Signed Updated episode and gbs results faxes to [facility]. Consuelo Still RN Allergies As of Date: 10/06/2023 (No Known Allergies) Date Reviewed: 10/05/2023 Reviewed by: Krystian Valencia MD - Fully Assessed Reason for Visit: Contractions [1575] Prescriptions as of 10/06/2023 - Lactobacillus acidophilus (FLORAJEN ACIDOPHILUS) 20 billion cell cap Take 1 capsule by mouth once daily. - doxylamine (UNISOM, DOXYLAMINE,) 25 mg tab Take 1 tablet by mouth daily at bedtime. - [id number]-ygzk ps-folate 1 29 mg iron- 1 mg chew Take 1 tablet by mouth once daily. - aspirin, enteric coated (ASPIRIN, ENTERIC COATED) 81 mg EC tablet Take 2 tablets by mouth once daily. Problem List As Of Date 10/06/2023 Noted Resolved Bleeding in early [O20.9] 2017 11/12/2017 Quit smoking [Z87.891] 2017 02/19/2023 History of thyroid disorder [Z86.39] 2017 Patient request for diagnostic testing [Z01.89] 2017 Atypical squamous cell changes of undetermined *11/12/2017 Normal in first trimester [Z34.91] 11/29/2017 12/15/2018 High risk due to maternal drug abuse,*11/29/2017 12/15/2018 Positive GBS test [B95.1] 05/13/2018 12/15/2018 Short interval between pregnancies affecting pr*12/08/2018 02/19/2023 History of bipolar disorder [Z86.59] 12/08/2018 Marijuana use [F12.90] 07/25/2019 02/19/2023 40 weeks gestation of [Z3A.40] 08/19/2019 09/08/2021 Intact amniotic membranes [Z34.90] 08/19/2019 02/19/2023 Threatened labor at term [O47.9] 08/19/2019 09/08/2021 Subchorionic hematoma in first trimester [O41.8*09/08/2021 02/19/2023 Vaginal bleeding during [O46.90] 09/08/2021 02/19/2023 Current with history of spontaneous a*02/15/2023 History of alcohol abuse [F10.11] 02/15/2023 History of posttraumatic stress disorder (PTSD)*02/18/2023 Supervision of high risk in first tri*02/19/2023 Date of last menstrual period (LMP) unknown [Z7*02/19/2023 ASCUS with positive high risk HPV cervical [R87*02/26/2023 Encounter for initial prescription of implantab*07/21/2023 Anemia complicating , third trimester *08/18/2023 Encounter Status:Closed by MARII GONSALES on 10/06/23 [facility] Determination of erythrocyte mean corpuscular volume (MCV)Ordered By: Cortney Cash on 10-06-2023 MCV (RBC) [Entitic vol] 73.8 fL 81-99 [facility] H AND P Exam - OB/GYNon 09-24 H&P Exam - SURVEY SUPERVISOR [facility] Medical Records Department [address] [place] [address] H P Exam - SURVEY SUPERVISOR 10/06/23 1643 MR#: [id number] Acct: [id number] Name: ERICA TORO Rep #: [id number] : 1995 27 From: Cortney Cash CNM PCP: Care Physician,No Primary Status:ADM IN Location: [id number] HPI - General General Date of Admission: 10/06/23 HPI Narrative ERICA TORO, is a 27 F at 39.5 weeks gestation who presents with contractions. She has been having contractions since yesterday. Was seen in office and CE completed. She continued to have contractions last night and today. Denies any loss of fluid or vaginal bleeding. Positive movement. Maternal Data Information MEGAN Calculator Estimated Delivery Date Method Current WG Current Estimate 10/08/23 Manual 39w 5d PFSH PFSH Medical History Alcohol abuse Anemia Bipolar disorder BV (bacterial vaginosis) Family history of hearing loss at age younger than 7 years HPV (human papilloma virus) infection Post traumatic stress disorder (PTSD) Thyroid disorder Home Medications vits,calcium no.78-iron fumarate-folic acid 29 mg-1 mg tablet (Prenatabs FA) 1 tab PO DAILY vitamin 05/29/18 [History Last Taken 08/19/19 08:00] ibuprofen 600 mg tablet 600 mg PO Q6H PRN PRN Pain Score 1-3/10 #40 tabs 08/22/19 [Rx Last Taken Unknown] ondansetron 4 mg disintegrating tablet 4 mg PO Q8H PRN PRN Nausea #10 tabs 04/03/20 [Rx Last Taken Unknown] ondansetron HCl 4 mg tablet (Zofran) 4 mg PO Q8H #10 tabs 09/08/21 [Rx Last Taken Unknown] oxycodone 5 mg capsule 5 mg PO Q6H PRN pain 3 days #12 caps 09/08/21 [Rx Last Taken Unknown] Allergy/AdvReac Type Severity Reaction Status Date / Time No Known Allergies Allergy Verified 09/08/21 19:43 Social History Smoking Status: Former smoker History Elective abortions Hx Para 3 Spontaneous abortions Hx # Term Pregnancies Ectopic pregnancies Hx # Pregnancies Multiple births # of living children ROS Eyes Eyes: Denies blurry vision, change in vision or spots in vision ENT HEENT: Denies dizziness or headache(s) Cardiovascular Cardiovascular: Denies abdominal pain, chest pain or dyspnea Respiratory/Chest Respiratory/Chest: Denies cough, dyspnea, shortness of breath at rest or shortness of breath with exertion Gastrointestinal Gastrointestinal: Denies abdominal pain, diarrhea or vomiting Genitourinary Genitourinary: Denies change in urinary stream, difficulty urinating or dysuria Musculoskeletal Musculoskeletal: Reports none Integumentary Integumentary: Denies rash Neurologic Neurologic: Denies dizziness, headache(s), memory loss or weakness Psychiatric Psychiatric: Reports none Vital Signs Vital Signs Vital Signs: 10/06/23 14:54 10/06/23 14:54 10/06/23 14:54 Pulse Rate 72 Blood Pressure 125/62 H BP Systolic 125 BP Diastolic 62 Pulse Ox 100 10/06/23 14:59 10/06/23 14:59 10/06/23 15:01 Pulse Rate 71 Blood Pressure 111/53 L BP Systolic 111 BP Diastolic 53 Pulse Ox 100 10/06/23 15:01 10/06/23 15:04 10/06/23 15:04 Pulse Rate 64 60 Blood Pressure BP Systolic BP Diastolic Pulse Ox 100 10/06/23 15:06 10/06/23 15:06 10/06/23 15:07 Pulse Rate 57 L 62 Blood Pressure 116/54 L BP Systolic 116 BP Diastolic 54 Pulse Ox 10/06/23 15:07 10/06/23 15:09 10/06/23 15:09 Pulse Rate 68 Blood Pressure BP Systolic BP Diastolic Pulse Ox 90 100 10/06/23 15:11 10/06/23 15:11 10/06/23 15:33 Pulse Rate 63 Blood Pressure 100/52 L 114/57 L BP Systolic 100 114 BP Diastolic 52 57 Pulse Ox 10/06/23 15:33 10/06/23 15:53 10/06/23 15:53 Pulse Rate 98 83 Blood Pressure 116/66 BP Systolic 116 BP Diastolic 66 Pulse Ox 10/06/23 16:31 10/06/23 16:31 Pulse Rate 184 H Blood Pressure 135/68 H BP Systolic 135 BP Diastolic 68 Pulse Ox Weight Weight: 182 lb Body Mass Index (BMI) 28.5 Physical Exam Const alert, oriented x3 and no apparent distress General Appearance: cooperative Orientation / Consciousness: awake Exam Limitations: no limitations HEENT normocephalic Head and Scalp: normal to inspection Eyes General Eye: normal appearance of both eyes Neck full ROM and no lymphadenopathy Lymph Lymphatic: no lymphadenopathy noted Chest inspection of chest normal Resp normal respiratory effort, normal air movement and clear to auscultation bilaterally Effort and Inspection: able to speak in complete sentences and symmetric chest movement Cardio (more content not included)... Normal [facility] Hematocrit Auto (Bld) [Volum e fraction]Ordered By: Cortney Cash on 10-06-2023 Hematocrit (Bld) [Volume fraction] 37.4 % 37-47 [facility] L509.8000on 10-06-2023 Syphilis Abs Non-Reactive Normal [facility] Comment on above: Performed By: #### L 509.8000 #### [facility] [address] [place], [address] Laboratory - Hematology and Cell countsOrdered By: Cortney Cash on 10-06-2023 Erythrocyte distribution width (RBC) [Entitic vol] 45.9 fL 35.1-43.9 [facility] Erythrocyte distribution width (RBC) [Ratio] 17.4 % 11.6-14.6 [facility] Immature granulocytes/100 WBC (Bld) 0.300 % 0.0-0.9 [facility] Comment on above: IG% - Immature Granu locytes (promyelocytes, myelocytes and metamyelocytes) > 1% indicates that a LEFT SHIFT is Present. MCH (RBC) [Entitic mass] 22.5 pg 27.0-32.0 [facility] Nucleated RBC/100 WBC (Bld) [Ratio] 0 % 0-5 [facility] MCHC Auto (RBC) [Mass/Vol]Or dered By: Cortney Cash on 10-06-2023 MCHC (RBC) [Mass/Vol] 30.5 g/dL 32-36 [facility] Operative Reporton 3 Operative Report [facility] Medical Records Department [address] [place] [address] Operative Report 10/06/23 1633 MR#: [id number] Acct: [id number] Name: ERICA TORO Rep #: [id number] : 1995 27 From: Cortney Cash CNDomonique PCP: Care Physician,No Primary Status:ADM IN Location: [id number] Assessment Plan (1) (spontaneous vaginal delivery): (2) Spontaneous onset of labor: (3) Spontaneous rupture of amniotic membranes: (4) Care and examination of lactating mother: Maternal Data Information MEGAN Calculator Estimated Delivery Date Method Current WG Current Estimate 10/08/23 Manual 39w 5d Vaginal Delivery Maternal Presentation Maternal Presentation: Active Labor and Spontaneous Rupture of Membranes Maternal Presentation: Patient is at 39.5 weeks gestation that presents in spontaneous labor. Operative Information Date of Procedure: 10/06/23 Pre-Operative Diagnosis: Term gestation, Spontaneous onset of labor Post-Operative Diagnosis: , live male Surgery / Procedure Performed: Spontaneous Vaginal Delivery Type of Anesthesia: Epidural Estimated Blood Loss: 150 Time of Delivery: 16:18 Findings Description of Procedure: Patient quickly progressed in dilation. SROM for clear fluid and was found to be complete dilation. With minimal maternal effort, head delivered over intact perineum followed immediately by anterior shoulder and remainder of infant body without traction. Vigorous male placed on maternal abdomen and was attended to by nursing staff. Pitocin IM given for active management of the third stage of labor. 3 vessel cord clamped and cut by FOB after delay. Infant placed immediately skin to skin with patient. Placenta delivered spontaneously and intact. Vagina and perineum intact. Vaginal sweep completed by me. Fundus firm 1 below U. Hemostasis obtained. EBL 150 cc. APGARS 8/9. Dr. Ross notified of delivery. Presentation: Vertex Amniotic Membrane Rupture Type: Spontaneous Time of Membrane Rupture: 1530 Amniotic Fluid Description: Clear Placental Delivery Description: Spontaneous Placenta Disposition: [facility] Cord Vessel Description: 3 Vessels Cord Entanglement: None A Gender: Male (1 minute): 8 (5 minute): 9 Delayed Cord Clamping: Yes Post Vaginal Delivery Medications Given After Delivery: IV Pitocin and IM Pitocin Episiotomy Description: None Laceration: None Complication Complications: None 10/06/23 1643 Cosigner Signature (if applicable): CC: SURESH Cash; No Primary Care Physician Signed Normal [facility] Platelets bldOrdered By: Leana Cash on 10-06-2023 Platelets (Bld) [#/Vol] 180 10*3/uL 150-450 [facility] Serum Treponema species anti body detectionOrdered By: Cortney Cash on 10-06-2023 Treponema sp Ab Ql (S) Non-Reactive [facility] Type AND Screenon 10-06-2023 ABO and Rh group Nom (Bld) Blood group A Rh(D) positive Normal [facility] Comment on above: Order Comment: Labor Performed By: #### B TS, L100.0100 #### [facility] [address] [place], [address] URINE OB DIP B/Oon 3 Glucose Ql (U) Negative Neg mg/dL [facility] Protein.monoclonal (U) [Mass/Vol] Negative Neg mg/dL [facility] URINE OB DIP B/Oon 3 Glucose Ql (U) Negative Neg mg/dL [facility] Protein.monoclonal (U) [Mass/Vol] Negative Neg mg/dL [facility] OBSTETRIC ULTRASOUND WHIon 1 11-20-2022 [facility] URINE OB DIP B/Oon 3 Glucose Ql (U) Negative Neg mg/dL [facility] Protein.monoclonal (U) [Mass/Vol] Negative Neg mg/dL [facility] CNPSlime 09-14-2023 MARCOS Telephone (OBGYWM) ERICA TORO ([id number]) 1995 F Date Time Provider Department 09/14/23 DULCE SHANNON OBGYWDomonique During your visit today, we recorded the following information about you: Dulce Shannon APRN.CNP 09/14/2023 8:05 AM Signed BV positive. To treat with Flagyl 500mg PO BID for 7 days. 1) No alcohol during treatment and for 24 hours after last dose. 2) No intercourse during treatment. 3) Probiotic by mouth once daily for 30 days or as needed. SAIMA Muñoz Jennifer RN 09/14/2023 8:21 AM Signed Patient notified. Kari Balderas RN Allergies As of Date: 09/14/2023 (No Known Allergies) Date Reviewed: 09/13/2023 Reviewed by: Pat Nguyễn MA - Fully Assessed Reason for Visit: Results [95] Order(s):metroNIDAZO LE (FLAGYL) 500 mg tabletTake 1 tablet by mouth two times a day for 7 days.Disp: 14 tabletRfl: 0 Prescriptions as of 09/14/2023 - metroNIDAZOLE (FLAGYL) 500 mg tablet Take 1 tablet by mouth two times a day for 7 days. - Lactobacillus acidophilus (FLORAJEN ACIDOPHILUS) 20 billion cell cap Take 1 capsule by mouth once daily. - doxylamine (UNISOM, DOXYLAMINE,) 25 mg tab Take 1 tablet by mouth daily at bedtime. - ka59-dgrs ps-folate 1 29 mg iron- 1 mg chew Take 1 tablet by mouth once daily. - aspirin, enteric coated (ASPIRIN, ENTERIC COATED) 81 mg EC tablet Take 2 tablets by mouth once daily. Problem List As Of Date 09/14/2023 Noted Resolved Bleeding in early [O20.9] 2017 11/12/2017 Quit smoking [Z87.891] 2017 02/19/2023 History of thyroid disorder [Z86.39] 2017 Patient request for diagnostic testing [Z01.89] 2017 Atypical squamous cell changes of undetermined *11/12/2017 Normal in first trimester [Z34.91] 11/29/2017 12/15/2018 High risk due to maternal drug abuse,*11/29/2017 12/15/2018 Positive GBS test [B95.1] 05/13/2018 12/15/2018 Short interval between pregnancies affecting pr*12/08/2018 02/19/2023 History of bipolar disorder [Z86.59] 12/08/2018 Marijuana use [F12.90] 07/25/2019 02/19/2023 40 weeks gestation of [Z3A.40] 08/19/2019 09/08/2021 Intact amniotic membranes [Z34.90] 08/19/2019 02/19/2023 Threatened labor at term [O47.9] 08/19/2019 09/08/2021 Subchorionic hematoma in first trimester [O41.8*09/08/2021 02/19/2023 Vaginal bleeding during [O46.90] 09/08/2021 02/19/2023 Current with history of spontaneous a*02/15/2023 History of alcohol abuse [F10.11] 02/15/2023 History of posttraumatic stress disorder (PTSD)*02/18/2023 Supervision of high risk in first tri*02/19/2023 Date of last menstrual period (LMP) unknown [Z7*02/19/2023 ASCUS with positive high risk HPV cervical [R87*02/26/2023 Encounter for initial prescription of implantab*07/21/2023 Anemia complicating , third trimester *08/18/2023 Prescriptions ordered this encounter Disp Refills Start End METRONIDAZOLE 500 MG TABLET 14 t* 0 09/14/2023 09/21/2023 Route: ORAL Sig: Take 1 tablet by mouth two times a day for 7 days. Encounter Status:Closed by KARI BALDERAS RN on 09/14/23 Normal [facility] BACTERIAL VAGINOSIS NAATon 1 11-13-2022 Lactobacillus crispatus+gasseri+jense reema + Gardnerella vaginalis + Atopobium vaginae rRNA ODILON+probe Ql (Vag fld) Positive Abnormal Negative for bacterial vaginosis [facility] Comment on above: Order Comment: Speci men Type: SWABOrdering Facility: [facility] Address: [address] [place] [address] Performed By: #### B VAMP, CVTV ####[facility] LABCLIA [id number] [place] [address] [place] FRANCESCO/TRICHOMONAS NAATon 1 11-13-2022 C. glabrata RNA ODILON+probe Ql (Vag fld) Negative Normal Negative for Francesco glabrata [facility] Comment on above: Order Comment: Speci men Type: SWABOrdering Facility: [facility] Address: [address] [place] [address] Performed By: #### B VAMP, CVTV ####[facility] LABCLIA [id number] [place] [address] [place] Francesco sp DNA ODILON+probe Ql (Vag fld) Positive Abnormal Negative for Francesco species [facility] Comment on above: Order Comment: Speci men Type: SWABOrdering Facility: [facility] Address: [address] [place] [address] Performed By: #### B VAMP, CVTV ####[facility] LABIA [id number] [address] [place] T. vaginalis DNA ODILON+probe Ql (Unsp spec) Negative Normal Negative for Trichomonas vaginalis by amplification [facility] Comment on above: Order Comment: Speci men Type: SWABOrdering Facility: [facility] Address: [address] [place] [address] Performed By: #### B VAMP, CVTV ####[facility] LABIA [id number] [place] [address] [place] ROUTINE, GROUP B ST REP PCRon 09-13-2023 ROUTINE, GROUP B STREP PCR GROUP B STREP PCR: Negative for Group B Streptococcus by PCR. Normal [facility] Comment on above: Performed By: #### G BPCR ####[facility] LABCLIA [id number] [place] [address] [place] URINE OB DIP B/Oon 3 Glucose Ql (U) Negative Neg mg/dL [facility] Protein.monoclonal (U) [Mass/Vol] Negative Neg mg/dL [facility] CNPNon 09-02-2023 CNPN Telephone (OBGYWM) ERICA TORO ([id number]) 1995 F Date Time Provider Department 09/02/23 LON ARANDA During your visit today, we recorded the following information about you: Lon Aranda APRN.CNP 09/02/2023 12:48 PM Signed Please notify patient: Protein creatinine ratio is WNL. How is she feeling? Lon Aranda APRN.Anahy Biswas RN 09/02/2023 1:55 PM Signed Patient notified. Patient states she feels "fine so far today." She will call with worsening or new symptoms again. Anahy Wood RN Allergies As of Date: 09/02/2023 (No Known Allergies) Date Reviewed: 08/18/2023 Reviewed by: Cortney Cash APRN.CNM - Fully Assessed Reason for Visit: Results [95] Prescriptions as of 09/02/2023 - Lactobacillus acidophilus (FLORAJEN ACIDOPHILUS) 20 billion cell cap Take 1 capsule by mouth once daily. - doxylamine (UNISOM, DOXYLAMINE,) 25 mg tab Take 1 tablet by mouth daily at bedtime. - gr95-wikz ps-folate 1 29 mg iron- 1 mg chew Take 1 tablet by mouth once daily. - aspirin, enteric coated (ASPIRIN, ENTERIC COATED) 81 mg EC tablet Take 2 tablets by mouth once daily. Problem List As Of Date 09/02/2023 Noted Resolved Bleeding in early [O20.9] 2017 11/12/2017 Quit smoking [Z87.891] 2017 02/19/2023 History of thyroid disorder [Z86.39] 2017 Patient request for diagnostic testing [Z01.89] 2017 Atypical squamous cell changes of undetermined *11/12/2017 Normal in first trimester [Z34.91] 11/29/2017 12/15/2018 High risk due to maternal drug abuse,*11/29/2017 12/15/2018 Positive GBS test [B95.1] 05/13/2018 12/15/2018 Short interval between pregnancies affecting pr*12/08/2018 02/19/2023 History of bipolar disorder [Z86.59] 12/08/2018 Marijuana use [F12.90] 07/25/2019 02/19/2023 40 weeks gestation of [Z3A.40] 08/19/2019 09/08/2021 Intact amniotic membranes [Z34.90] 08/19/2019 02/19/2023 Threatened labor at term [O47.9] 08/19/2019 09/08/2021 Subchorionic hematoma in first trimester [O41.8*09/08/2021 02/19/2023 Vaginal bleeding during [O46.90] 09/08/2021 02/19/2023 Current with history of spontaneous a*02/15/2023 History of alcohol abuse [F10.11] 02/15/2023 History of posttraumatic stress disorder (PTSD)*02/18/2023 Supervision of high risk in first tri*02/19/2023 Date of last menstrual period (LMP) unknown [Z7*02/19/2023 ASCUS with positive high risk HPV cervical [R87*02/26/2023 Encounter for initial prescription of implantab*07/21/2023 Anemia complicating , third trimester *08/18/2023 Encounter Status:Closed by ANAHY WOOD RN on 09/02/23 Normal [facility] CBC panel Auto (Bld)on 09-01 Erythrocyte distribution width (RBC) [Ratio] 17.0 % High 11.5-15.0 [facility] Comment on above: Order Comment: Speci men Type: BLOOD SPECIMENOrdering Facility: [facility] Address: [address] [place] [address] Performed By: #### 5 8410-2 ####[facility]THSANDYCandelario [id number] [address] [place] Hematocrit (Bld) [Volume fraction] 34.6 % Low 36.0-46.0 [facility] Comment on above: Order Comment: Speci men Type: BLOOD SPECIMENOrdering Facility: [facility] Address: [address] [place] [address] Performed By: #### 5 8410-2 ####[facility] [id number] [place] [address] [place] Hemoglobin (Bld) [Mass/Vol] 10.5 g/dL Low 11.5-15.5 [facility] Comment on above: Order Comment: Speci men Type: BLOOD SPECIMENOrdering Facility: [facility] Address: [address] [place] [address] Performed By: #### 5 8410-2 ####[facility] [facility] [id number] [place] [address] [place] MCH (RBC) [Entitic mass] 22.9 pg Low 26.0-34.0 [facility] Comment on above: Order Comment: Speci men Type: BLOOD SPECIMENOrdering Facility: [facility] Address: [address] [place] [address] Performed By: #### 5 8410-2 ####[facility] [id number] [place] [address] [place] MCHC (RBC) [Mass/Vol] 30.3 g/dL Low 30.5-36.0 [facility] Comment on above: Order Comment: Speci men Type: BLOOD SPECIMENOrdering Facility: [facility] Address: [address] [place] [address] Performed By: #### 5 8410-2 ####[facility] SOUTHNCLIA [id number] [place] [address] [place] MCV (RBC) [Entitic vol] 75.5 fL Low 80.0-100.0 [facility] Comment on above: Order Comment: Speci men Type: BLOOD SPECIMENOrdering Facility: [facility] Address: [address] [place] [address] Performed By: #### 5 8410-2 ####[facility] [id number] [place] [address] [place] Nucleated RBC (Bld) [#/Vol] 10*3/uL Normal <0.01 [facility] Comment on above: Order Comment: Speci men Type: BLOOD SPECIMENOrdering Facility: [facility] Address: [address] [place] [address] Performed By: #### 5 8410-2 ####[facility] PARMINDERNCKRISTIA [id number] [place] [address] [place] Platelet mean volume (Bld) [Entitic vol] 11.6 fL Normal 9.0-12.7 [facility] Comment on above: Order Comment: Speci men Type: BLOOD SPECIMENOrdering Facility: [facility] Address: [address] [place] [address] Performed By: #### 5 8410-2 ####[facility] SOUTHNCCandelario [id number] [place] [address] [place] Platelets (Bld) [#/Vol] 178 10*3/uL Normal 150-400 [facility] Comment on above: Order Comment: Speci men Type: BLOOD SPECIMENOrdering Facility: [facility] Address: [address] [place] [address] Performed By: #### 5 8410-2 ####[facility] SOUTHNCLIA [id number] [place] [address] [place] RBC (Bld) [#/Vol] 4.58 10*6/uL Normal 3.90-5.20 [facility] Comment on above: Order Comment: Speci men Type: BLOOD SPECIMENOrdering Facility: [facility] Address: [address] [place] [address] Performed By: #### 5 8410-2 ####[facility] SOUTHNCLIA [id number] [place] [address] [place] WBC (Bld) [#/Vol] 7.83 10*3/uL Normal 3.70-11.00 [facility] Comment on above: Order Comment: Speci men Type: BLOOD SPECIMENOrdering Facility: [facility] Address: [address] [place], [place] [address], [place] [address] Performed By: #### 5 8410-2 ####[facility] YANIV [facility] [id number] [place] [id number] [place] Erythrocyte distribution width (RBC) [Ratio] 17.0 % High 11.5 - 15.0 % [facility] Hematocrit (Bld) [Volume fraction] 34.6 % Low 36.0 - 46.0 % [facility] Hemoglobin (Bld) [Mass/Vol] 10.5 g/dL Low 11.5 - 15.5 g/dL [facility] MCH (RBC) [Entitic mass] 22.9 pg Low 26.0 - 34.0 pg [facility] MCHC (RBC) [Mass/Vol] 30.3 g/dL Low 30.5 - 36.0 g/ dL [facility] MCV (RBC) [Entitic vol] 75.5 fL Low 80.0 - 100.0 fL [facility] Nucleated RBC (Bld) [#/Vol] <0.01 k/uL [facility] Platelet mean volume (Bld) [Entitic vol] 11.6 fL 9.0 - 12.7 fL [facility] Platelets (Bld) [#/Vol] 178 10*3/uL 150 - 400 k /uL [facility] RBC (Bld) [#/Vol] 4.58 10*6/uL 3.90 - 5.20 m/uL [facility] WBC (Bld) [#/Vol] 7.83 10*3/uL 3.70 - 11. 00 k/uL [facility] CNPNon 09-01-2023 CNPN Telephone (YOUSIF) ERICA TORO ([id number]) 1995 F Date Time Provider Department 09/01/23 LON ARANDA During your visit today, we recorded the following information about you: Lon Aranda APRN.NGUYEN 09/01/2023 4:48 PM Signed Please notify patient: Labs are not indicative of pre eclampsia so far. Still waiting on protein creatinine ratio. Hgb 10.5, which is higher than her 10.0 value about a month ago. I recommend taking iron supplement every other day. Ferrous Sulfate 325mg PO once every other day -Take with source of Vitamin C -Avoid taking with food I also recommend staying hydrated and restoring electrolytes with a Body [place] Lyte. Let me know if there are any questions! Lon Aranda APRN.Anahy Biswas RN 09/01/2023 4:58 PM Signed Left message for patient to call office. Kari Batista RN, RN 09/02/2023 9:47 AM Signed Patient notified. States she has been taking iron supplement, but not consistently. Reviewed instructions below. Aware our office will contact her with protein creatinine ratio results. Kari Balderas RN Allergies As of Date: 09/01/2023 (No Known Allergies) Date Reviewed: 08/18/2023 Reviewed by: Cortney Cash APRN.CNM - Fully Assessed Reason for Visit: Results [95] Prescriptions as of 09/02/2023 - Lactobacillus acidophilus (FLORAJEN ACIDOPHILUS) 20 billion cell cap Take 1 capsule by mouth once daily. - doxylamine (UNISOM, DOXYLAMINE,) 25 mg tab Take 1 tablet by mouth daily at bedtime. - ps59-tdzi ps-folate 1 29 mg iron- 1 mg chew Take 1 tablet by mouth once daily. - aspirin, enteric coated (ASPIRIN, ENTERIC COATED) 81 mg EC tablet Take 2 tablets by mouth once daily. Problem List As Of Date 09/01/2023 Noted Resolved Bleeding in early [O20.9] 2017 11/12/2017 Quit smoking [Z87.891] 2017 02/19/2023 History of thyroid disorder [Z86.39] 2017 Patient request for diagnostic testing [Z01.89] 2017 Atypical squamous cell changes of undetermined *11/12/2017 Normal in first trimester [Z34.91] 11/29/2017 12/15/2018 High risk due to maternal drug abuse,*11/29/2017 12/15/2018 Positive GBS test [B95.1] 05/13/2018 12/15/2018 Short interval between pregnancies affecting pr*12/08/2018 02/19/2023 History of bipolar disorder [Z86.59] 12/08/2018 Marijuana use [F12.90] 07/25/2019 02/19/2023 40 weeks gestation of [Z3A.40] 08/19/2019 09/08/2021 Intact amniotic membranes [Z34.90] 08/19/2019 02/19/2023 Threatened labor at term [O47.9] 08/19/2019 09/08/2021 Subchorionic hematoma in first trimester [O41.8*09/08/2021 02/19/2023 Vaginal bleeding during [O46.90] 09/08/2021 02/19/2023 Current with history of spontaneous a*02/15/2023 History of alcohol abuse [F10.11] 02/15/2023 History of posttraumatic stress disorder (PTSD)*02/18/2023 Supervision of high risk in first tri*02/19/2023 Date of last menstrual period (LMP) unknown [Z7*02/19/2023 ASCUS with positive high risk HPV cervical [R87*02/26/2023 Encounter for initial prescription of implantab*07/21/2023 Anemia complicating , third trimester *08/18/2023 Encounter Status:Closed by KARI BALDERAS RN on 09/02/23 Normal [facility] Comprehensive metabolic 2000 panelon 09-01-2023 Albumin [Mass/Vol] 3.7 g/dL Low 3.9-4.9 [facility] Comment on above: Order Comment: Speci men Type: BLOOD SPECIMENOrdering Facility: [facility] Address: [address] [place] [address] Performed By: #### 2 4323-8, 2532-0 ####[facility] [id number] [place] [address] [place] ALP [Catalytic activity/Vol] 100 U/L Normal 34-123 [facility] Comment on above: Order Comment: Speci men Type: BLOOD SPECIMENOrdering Facility: [facility] Address: [address] [place] [address] Performed By: #### 2 4323-8, 2531-0 ####[facility] MARLYNWNCLIA [id number] [place] [address] [place] ALT [Catalytic activity/Vol] 6 U/L Low 7-38 [facility] Comment on above: Order Comment: Speci men Type: BLOOD SPECIMENOrdering Facility: [facility] Address: [address] [place] [address] Performed By: #### 2 4323-8, 2531-0 ####[facility] SOUTHNCLIA [id number] [place] [address] [place] Anion gap [Moles/Vol] 11 mmol/L Normal 9-18 [facility] Comment on above: Order Comment: Speci men Type: BLOOD SPECIMENOrdering Facility: [facility] Address: [address] [place] [address] Performed By: #### 2 4323-8, 2531-0 ####[facility] SOUTHNCLIA [id number] [place] [address] [place] AST [Catalytic activity/Vol] 15 U/L Normal 13-35 [facility] Comment on above: Order Comment: Speci men Type: BLOOD SPECIMENOrdering Facility: [facility] Address: [address] [place] [address] Performed By: #### 2 4323-8, 2531-0 ####[facility] SOUTHNCLIA [id number] [place] [address] [place] Bilirubin [Mass/Vol] 0.3 mg/dL Normal 0.2-1.3 [facility] Comment on above: Order Comment: Speci men Type: BLOOD SPECIMENOrdering Facility: [facility] Address: [address] [place] [address] Performed By: #### 2 432-8, 2531-0 ####[facility] YANIV MILLTOWNCLIA [id number] [place] [address] [place] Calcium [Mass/Vol] 8.4 mg/dL Low 8.5-10.2 [facility] Comment on above: Order Comment: Speci men Type: BLOOD SPECIMENOrdering Facility: [facility] Address: [address] [place] [address] Performed By: #### 2 4328, 2531-0 ####[facility] MILLTOWNCLIA [id number] [place] [address] [place] Chloride [Moles/Vol] 104 mmol/L Normal 97-105 [facility] Comment on above: Order Comment: Speci men Type: BLOOD SPECIMENOrdering Facility: [facility] Address: [address] [place] [address] Performed By: #### 2 4328, 2531-0 ####[facility] MILLTOWNCLIA [id number] [place] [address] [place] CO2 [Moles/Vol] 20 mmol/L Low 22-30 [facility] Comment on above: Order Comment: Speci men Type: BLOOD SPECIMENOrdering Facility: [facility] Address: [address] [place] [address] Performed By: #### 2 4328, 2531-0 ####[facility] MILLTOWNCLIA [id number] [place] [address] [place] Creatinine [Mass/Vol] 0.48 mg/dL Low 0.58-0.96 [facility] Comment on above: Order Comment: Speci men Type: BLOOD SPECIMENOrdering Facility: [facility] Address: [address] [facility] [place] [address] Performed By: #### 2 4328, 2531-0 ####[facility] [id number] [place] [address] [place] Creatinine and Glomerular filtration rate.predicted panel (S/P/Bld) 133 mL/min/1.73m??? Normal >=60 [facility] Comment on above: Order Comment: Ambrosio dhaliwal Type: BLOOD SPECIMENOrdering Facility: [facility] Address: [address] [place] [address] Result Comment: Genevieve mated Glomerular Filtration Rate (eGFR) is calculated using the 2020 CKD-EPI creatinine equation. This equation utilizes serum creatinine, sex, and age as parameters. The creatinine assay has traceable calibration to isotope dilution-mass spectrometry. Refer to KDIGO guidelines for clinical interpretation. In patients with unstable renal function, e.g. those with acute kidney injury, the eGFR may not accurately reflect actual GFR. Performed By: #### 2 4323-8, 2532-0 ####[facility] [id number] [place] [address] [place] Glucose [Mass/Vol] 74 mg/dL Normal 74-99 [facility] Comment on above: Order Comment: Ambrosio dhaliwal Type: BLOOD SPECIMENOrdering Facility: [facility] Address: [address] [place] [address] Result Comment: The [place] Diabetes Association (ADA) provides guidance for cutoff values for fasting glucose and random glucose. The ADA defines fasting as no caloric intake for at least 8 hours. Fasting plasma glucose results between 100 to 125 mg/dL indicate increased risk for diabetes (prediabetes). Fasting plasma glucose results greater than or equal to 126 mg/dL meet the criteria for diagnosis of diabetes. In the absence of unequivocal hyperglycemia, results should be confirmed by repeat testing. In a patient with classic symptoms of hyperglycemia or hyperglycemic crisis, random plasma glucose results greater than or equal to 200 mg/dL meet the criteria for diagnosis of diabetes. Reference: Standards of Medical Care in Diabetes 2016, [place] Diabetes Association. Diabetes Care. 2016.39(Suppl 1). Performed By: #### 2 4323-8, 2532-0 ####[facility] [id number] [place] [address] [place] Potassium [Moles/Vol] 3.5 mmol/L Low 3.7-5.1 [facility] Comment on above: Order Comment: Speci men Type: BLOOD SPECIMENOrdering Facility: [facility] Address: [address] [place] [address] Performed By: #### 2 4323-8, 2-0 ####[facility] YANIV MILLTOWNCLIA [id number] [place] [address] [place] Protein [Mass/Vol] 6.7 g/dL Normal 6.3-8.0 [facility] Comment on above: Order Comment: Speci men Type: BLOOD SPECIMENOrdering Facility: [facility] Address: [address] [place] [address] Performed By: #### 2 4323-8, 2531-0 ####[facility] MILLWSANDYLIA [id number] [place] [address] [place] Sodium [Moles/Vol] 135 mmol/L Low 136-144 [facility] Comment on above: Order Comment: Speci men Type: BLOOD SPECIMENOrdering Facility: [facility] Address: [address] [place] [address] Performed By: #### 2 4323-8, 2531-0 ####[facility] MILLANILWNCLIA [id number] [place] [address] [place] Urea nitrogen [Mass/Vol] 6 mg/dL Low 7-21 [facility] Comment on above: Order Comment: Speci men Type: BLOOD SPECIMENOrdering Facility: [facility] Address: [address] [place] [address] Performed By: #### 2 4323-8, 2532-0 ####[facility] MILLTOWNCLIA [id number] [place] [address] [place] Albumin [Mass/Vol] 3.7 g/dL Low 3.9 - 4.9 g/dL [facility] ALP [Catalytic activity/Vol] 100 U/L 34 - 123 U/L [facility] ALT [Catalytic activity/Vol] 6 U/L Low 7 - 38 U/L [facility] Anion gap [Moles/Vol] 11 mmol/L 9 - 18 mmol/L [facility] AST [Catalytic activity/Vol] 15 U/L 13 - 35 U/L [facility] Bilirubin [Mass/Vol] 0.3 mg/dL 0.2 - 1.3 mg/dL [facility] Calcium [Mass/Vol] 8.4 mg/dL Low 8.5 - 10.2 mg/dL [facility] Chloride [Moles/Vol] 104 mmol/L 97 - 105 mmol/L [facility] CO2 [Moles/Vol] 20 mmol/L Low 22 - 30 mmol/L [facility] Creatinine [Mass/Vol] 0.48 mg/dL Low 0.58 - 0.96 mg/dL [facility] Estimated Glomerular Filtration Rate 133 mL/min/1.73m >=60 mL/min/1.73m [facility] Glucose [Mass/Vol] 74 mg/dL 74 - 99 mg/dL [facility] Potassium [Moles/Vol] 3.5 mmol/L Low 3.7 - 5.1 mmol /L [facility] Protein [Mass/Vol] 6.7 g/dL 6.3 - 8.0 g/dL [facility] Sodium [Moles/Vol] 135 mmol/L Low 136 - 144 mmol/L [facility] Urea nitrogen [Mass/Vol] 6 mg/dL Low 7 - 21 mg/dL [facility] LD LACTATE DEHYDROon 023 LDH [Catalytic activity/Vol] 172 U/L 135 - 214 U/L [facility] LDH SerPl-cCncon 09-01-2023 LDH [Catalytic activity/Vol] 172 U/L Normal 135-214 [facility] Comment on above: Order Comment: Speci men Type: BLOOD SPECIMENOrdering Facility: [facility] Address: [address] [place] [address] Performed By: #### 2 4323-8, 2532-0 ####[facility]IVOKLA[facility]OMA H[facility] ASSOCIATIONROSALINE [id number] [place] [id number] [place] Prot/Creat Uron 09-01-2023 Protein/Creatinine (U) [Mass ratio] 0.11 mg/mg Normal <0.15 [facility] Comment on above: Order Comment: Speci men Type: URINE SPECIMENOrdering Facility: [facility] Address: [address] [place] [address] Result Comment: Adul t Proteinuria Categories: <0.15 mg/mg is considered normal to mildly increased 0.15 - 0.50 mg/mg is considered moderately increased >0.50 mg/mg is considered severely increased KDIGO. (2013). KDIGO 2012 Clinical Practice Guideline for the Evaluation and Management of Chronic Kidney Disease. Official Journal of the International Society of Nephrology, 3(1), 1-150. Performed By: #### 2 890-2 ####[facility] LABIA [id number] [place] [address] [place] Protein/Creatinine (U) [Mass ratio]on 09-01-2023 Creatinine (U) [Mass/Vol] 79.9 mg/dL Normal 20.0-300.0 [facility] Comment on above: Order Comment: Speci men Type: URINE SPECIMENOrdering Facility: [facility] Address: [address] [place] [address] Performed By: #### 2 890-2 ####[facility] LABIA [id number] [place] [address] [place] Protein (U) [Mass/Vol] 9 mg/dL Normal 0-20 [facility] Comment on above: Order Comment: Speci men Type: URINE SPECIMENOrdering Facility: [facility] Address: [address] [place] [address] Performed By: #### 2 890-2 ####[facility] LABIA [id number] [place] [address] [place] T4 Free SerPl-mCncon 023 Free T4 [Mass/Vol] 1.0 ng/dL Normal 0.9-1.7 [facility] Comment on above: Order Comment: Speci men Type: BLOOD SPECIMENOrdering Facility: [facility] Address: [address] [facility] [address] Performed By: #### 3 024-7, 3016-3 ####[facility] LABCLIA [id number] [place] [address] [place] TSH SerPl-aCncon 09-01-2023 TSH Qn 3.720 m[IU]/L Normal 0.270-4.200 [facility] Comment on above: Order Comment: Speci men Type: BLOOD SPECIMENOrdering Facility: [facility] Address: [place] [address] Result Comment: If t he patient is , TSH reference range varies by gestational period: First Trimester (weeks 9-12): 0.180-2.990 mIU/L Second Trimester: 0.110-3.980 mIU/L Third Trimester: 0.480-4.710 mIU/L Ed Gandhi et al. A Practical Approach for the Verifications and Determination of Site- and Trimester-Specific Reference Intervals for Thyroid Function tests in . Thyroid, 2019:29:3:412-420. Misha E, et al. 2017 Guidelines of the [place] Thyroid Association for the Diagnosis and Management of Thyroid Disease during and the . Thyroid, 2017:27:3:315-389. Performed By: #### 3 024-7, 3015-3 ####[facility] LABCLIA [id number] [place] [address] [place] URINE OB DIP B/Oon 3 Glucose Ql (U) Negative Neg mg/dL [facility] Protein.monoclonal (U) [Mass/Vol] Negative Neg mg/dL [facility] URINE OB DIP B/Oon 3 Glucose Ql (U) Negative Neg mg/dL [facility] Protein.monoclonal (U) [Mass/Vol] Negative Neg mg/dL [facility] CNPNon 07-22-2023 CNPN Telephone (OBGYWM) CORTEZERICA ([id number]) 1995 F Date Time Provider Department 07/22/23 CORTNEY CASH During your visit today, we recorded the following information about you: Priyanka Doe LPN 07/22/2023 2:20 PM Signed ----- Message from Cortney Cash APRN.CNM sent at 07/22/2023 12:53 PM EDT ----- Please notify patient that she is anemic. 1. Increase iron rich foods in diet (I.e. Lean red meats, green leafy vegetables, beans/lentils or dried fruits) 2. Start an iron supplement now and take every other day or MWF. I recommend Ferrous Sulfate 325 mg by mouth 3. Take iron with a source of Vitamin C (orange juice) to help with absorption. 4. Avoid coffee, tea, milk at time the supplement is taken. 5. Will need repeat CBC in 4 weeks. TREVOR Iglesias Kimberly LPN 07/22/2023 2:24 PM Signed Message left asking pt to call the office for results. Pt was also sent Care[employer] message with results and further orders. Will await response from pt. Anahy Lackey LPN, RN 07/23/2023 4:59 PM Signed Patient did view Care[facility] message at 10:34 AM on 07/23/2023. Allergies As of Date: 07/22/2023 (No Known Allergies) Date Reviewed: 07/21/2023 Reviewed by: Marilyn Darden Ma - Fully Assessed Prescriptions as of 07/23/2023 - Lactobacillus acidophilus (FLORAJEN ACIDOPHILUS) 20 billion cell cap Take 1 capsule by mouth once daily. - doxylamine (UNISOM, DOXYLAMINE,) 25 mg tab Take 1 tablet by mouth daily at bedtime. - tx71-bvzy ps-folate 1 29 mg iron- 1 mg chew Take 1 tablet by mouth once daily. - aspirin, enteric coated (ASPIRIN, ENTERIC COATED) 81 mg EC tablet Take 2 tablets by mouth once daily. Problem List As Of Date 07/22/2023 Noted Resolved Bleeding in early [O20.9] 2017 11/12/2017 Quit smoking [Z87.891] 2017 02/19/2023 History of thyroid disorder [Z86.39] 2017 Patient request for diagnostic testing [Z01.89] 2017 Atypical squamous cell changes of undetermined *11/12/2017 Normal in first trimester [Z34.91] 11/29/2017 12/15/2018 High risk due to maternal drug abuse,*11/29/2017 12/15/2018 Positive GBS test [B95.1] 05/13/2018 12/15/2018 Short interval between pregnancies affecting pr*12/08/2018 02/19/2023 History of bipolar disorder [Z86.59] 12/08/2018 Marijuana use [F12.90] 07/25/2019 02/19/2023 40 weeks gestation of [Z3A.40] 08/19/2019 09/08/2021 Intact amniotic membranes [Z34.90] 08/19/2019 02/19/2023 Threatened labor at term [O47.9] 08/19/2019 09/08/2021 Subchorionic hematoma in first trimester [O41.8*09/08/2021 02/19/2023 Vaginal bleeding during [O46.90] 09/08/2021 02/19/2023 Current with history of spontaneous a*02/15/2023 History of alcohol abuse [F10.11] 02/15/2023 History of posttraumatic stress disorder (PTSD)*02/18/2023 Supervision of high risk in first tri*02/19/2023 Date of last menstrual period (LMP) unknown [Z7*02/19/2023 ASCUS with positive high risk HPV cervical [R87*02/26/2023 Encounter for initial prescription of implantab*07/21/2023 Encounter Status:Closed by ANAHY WOOD RN on 07/23/23 Normal [facility] CBC W Auto Differential pane l (Bld)on 07-21-2023 Basophils (Bld) [#/Vol] 10*3/uL Normal <0.11 [facility] Comment on above: Order Comment: Speci men Type: BLOOD SPECIMENOrdering Facility: [facility] Address: [address] [place] [address] Performed By: #### 5 7021-8 ####[facility] BEACHWLALIA [id number] [place] [address] [place] Basophils/100 WBC (Bld) 0.3 % Normal [facility] Comment on above: Order Comment: Speci men Type: BLOOD SPECIMENOrdering Facility: [facility] Address: [address] [place] [address] Performed By: #### 5 7021-8 ####[facility] [id number] [place] [address] [place] Differential cell count method Nom (Bld) Auto Normal [facility] Comment on above: Order Comment: Speci men Type: BLOOD SPECIMENOrdering Facility: [facility] Address: [address] [place] [address] Performed By: #### 5 7021-8 ####[facility] CLAY COUNTYA [id number] [place] [address] [place] Eosinophils (Bld) [#/Vol] 0.06 10*3/uL Normal <0.46 [facility] Comment on above: Order Comment: Speci men Type: BLOOD SPECIMENOrdering Facility: [facility] Address: [address] [place] [address] Performed By: #### 5 7021-8 ####[facility] C[facility] COUNTYA [id number] [place] [address] [place] Eosinophils/100 WBC (Bld) 0.8 % Normal [facility] Comment on above: Order Comment: Speci men Type: BLOOD SPECIMENOrdering Facility: [facility] Address: [address] [place] [address] Performed By: #### 5 7021-8 ####[facility] [id number] [place] [address] [place] Erythrocyte distribution width (RBC) [Ratio] 14.4 % Normal 11.5-15.0 [facility] Comment on above: Order Comment: Speci men Type: BLOOD SPECIMENOrdering Facility: [facility] Address: [address] [place] [address] Performed By: #### 5 7021-8 ####[facility] [id number] [place] [address] [place] Hematocrit (Bld) [Volume fraction] 31.6 % Low 36.0-46.0 [facility] Comment on above: Order Comment: Speci men Type: BLOOD SPECIMENOrdering Facility: [facility] Address: [address] [place] [address] Performed By: #### 5 7021-8 ####[facility] [id number] [place] [address] [place] Hemoglobin (Bld) [Mass/Vol] 10.0 g/dL Low 11.5-15.5 [facility] Comment on above: Order Comment: Speci men Type: BLOOD SPECIMENOrdering Facility: [facility] Address: [address] [place] [address] Performed By: #### 5 7021-8 ####[facility] [id number] [place] [address] [place] Immature granulocytes (Bld) [#/Vol] 0.04 10*3/uL Normal <0.10 [facility] Comment on above: Order Comment: Speci men Type: BLOOD SPECIMENOrdering Facility: [facility] Address: [address] [place] [address] Performed By: #### 5 7021-8 ####[facility] [id number] [place] [address] [place] Immature granulocytes/100 WBC (Bld) 0.6 % Normal [facility] Comment on above: Order Comment: Speci men Type: BLOOD SPECIMENOrdering Facility: [facility] Address: [address] [place] [address] Performed By: #### 5 7021-8 ####[facility] [id number] [place] [address] [place] Lymphocytes (Bld) [#/Vol] 1.11 10*3/uL Normal 1.00-4.00 [facility] Comment on above: Order Comment: Speci men Type: BLOOD SPECIMENOrdering Facility: [facility] Address: [address] [place] [address] Performed By: #### 5 7021-8 ####[facility] [id number] [place] [address] [place] Lymphocytes/100 WBC (Bld) 15.7 % Normal [facility] Comment on above: Order Comment: Speci men Type: BLOOD SPECIMENOrdering Facility: [facility] Address: [address] [place] [address] Performed By: #### 5 7021-8 ####[facility] [id number] [place] [address] [place] MCH (RBC) [Entitic mass] 23.8 pg Low 26.0-34.0 [facility] Comment on above: Order Comment: Speci men Type: BLOOD SPECIMENOrdering Facility: [facility] Address: [address] [place] [address] Performed By: #### 5 7021-8 ####[facility] [id number] [place] [address] [place] MCHC (RBC) [Mass/Vol] 31.6 g/dL Normal 30.5-36.0 [facility] Comment on above: Order Comment: Speci men Type: BLOOD SPECIMENOrdering Facility: [facility] Address: [address] [place] [address] Performed By: #### 5 7021-8 ####[facility] [id number] [place] [address] [place] MCV (RBC) [Entitic vol] 75.1 fL Low 80.0-100.0 [facility] Comment on above: Order Comment: Speci men Type: BLOOD SPECIMENOrdering Facility: [facility] Address: [address] [place] [address] Performed By: #### 5 7021-8 ####[facility] [id number] [place] [address] [place] Monocytes (Bld) [#/Vol] 0.68 10*3/uL Normal <0.87 [facility] Comment on above: Order Comment: Speci men Type: BLOOD SPECIMENOrdering Facility: [facility] Address: [address] [place] [address] Performed By: #### 5 7021-8 ####[facility] [id number] [place] [address] [place] Monocytes/100 WBC (Bld) 9.6 % Normal [facility] Comment on above: Order Comment: Speci men Type: BLOOD SPECIMENOrdering Facility: [facility] Address: [address] [place] [address] Performed By: #### 5 7021-8 ####[facility] [id number] [place] [address] [place] Neutrophils (Bld) [#/Vol] 5.16 10*3/uL Normal 1.45-7.50 [facility] Comment on above: Order Comment: Speci men Type: BLOOD SPECIMENOrdering Facility: [facility] Address: [address] [address] Performed By: #### 5 7021-8 ####[facility] [id number] [place] [address] [place] Neutrophils/100 WBC (Bld) 73.0 % Normal [facility] Comment on above: Order Comment: Speci men Type: BLOOD SPECIMENOrdering Facility: [facility] Address: [address] [address] Performed By: #### 5 7021-8 ####[facility] [id number] [place] [address] [place] Nucleated RBC (Bld) [#/Vol] 10*3/uL Normal <0.01 [facility] Comment on above: Order Comment: Speci men Type: BLOOD SPECIMENOrdering Facility: [facility] Address: [address] [address] Performed By: #### 5 7021-8 ####[facility] CLAY COUNTYA [id number] [place] [address] [place] Nucleated RBC/100 WBC (Bld) [Ratio] 0.0 /100 WBC Normal [facility] Comment on above: Order Comment: Speci men Type: BLOOD SPECIMENOrdering Facility: [facility] Address: [address] [place] [address] Performed By: #### 5 7021-8 ####[facility] [id number] [place] [address] [place] Platelet mean volume (Bld) [Entitic vol] 10.9 fL Normal 9.0-12.7 [facility] Comment on above: Order Comment: Speci men Type: BLOOD SPECIMENOrdering Facility: [facility] Address: [address] [address] Performed By: #### 5 7021-8 ####[facility] [id number] [place] [address] [place] Platelets (Bld) [#/Vol] 192 10*3/uL Normal 150-400 [facility] Comment on above: Order Comment: Speci men Type: BLOOD SPECIMENOrdering Facility: [facility] Address: [address] [place] [address] Performed By: #### 5 7021-8 ####[facility] [id number] [place] [address] [place] RBC (Bld) [#/Vol] 4.21 10*6/uL Normal 3.90-5.20 [facility] Comment on above: Order Comment: Speci men Type: BLOOD SPECIMENOrdering Facility: [facility] Address: [address] [place] [address] Performed By: #### 5 7021-8 ####[facility] CLAY COUNTYA [id number] [place] [address] [place] WBC (Bld) [#/Vol] 7.07 10*3/uL Normal 3.70-11.00 [facility] Comment on above: Order Comment: Speci men Type: BLOOD SPECIMENOrdering Facility: [facility] Address: [address] [place] [address] Performed By: #### 5 7021-8 ####[facility] [id number] [place] [address] [place] GEST GLUC SCREEN, 1-HR, 50 G M, NON-FASTINGon 07-21-2023 Glucose [Mass/Vol] 84 mg/dL Normal 74-134 [facility] Comment on above: Order Comment: Speci men Type: BLOOD SPECIMENOrdering Facility: [facility] Address: [address] [place] [address] Result Comment: Amer [place] Congress of Obstetricians and Gynecologists (Adrianna/Mandi) guidelines state a gestational diabetes mellitus positive screen is made, in women not previously diagnosed with overt diabetes, when the 1 hr plasma glucose level is equal to or above 140 mg/dL. [facility] [employer] [facility] [place] recommends a 135 mg/dL cutoff. Performed By: #### G LTGST ###[facility]ORATORYCLIA [id number] [place] [address] [place] Reagin and Treponema pallidu m IgG and IgM [Interp]on 07-21-2023 T. pallidum IgG+IgM IA Ql (S) Non-Reactive Normal Nonreactive [facility] Comment on above: Order Comment: Speci men Type: BLOOD SPECIMENOrdering Facility: [facility] Address: [address] [address] Performed By: #### 7 3752-8 ####[facility] LABCLIA [id number] [place] [address] [place] Reagin+T pallidum IgG+IgM Se rPl-Impon 07-21-2023 Reagin and Treponema pallidum IgG and IgM [Interp] Cannot exclude recent Treponemal infection if specimen collected within 7-10 days after appearance of suspect lesions or 2-3 weeks after an exposure. Clinical correlation is required. Normal [facility] Comment on above: Order Comment: Speci men Type: BLOOD SPECIMENOrdering Facility: [facility] Address: [address] [address] Performed By: #### 7 3752-8 ####[facility] LABCLIA [id number] [place] [address] [place] BACTERIAL VAGINOSIS NAATon 0 07-12-2023 Lactobacillus crispatus+gasseri+jense reema + Gardnerella vaginalis + Atopobium vaginae rRNA ODILON+probe Ql (Vag fld) Positive Abnormal Negative for bacterial vaginosis [facility] Lactobacillus crispatus+gasseri+jense reema + Gardnerella vaginalis + Atopobium vaginae rRNA ODILON+probe Ql (Vag fld) Positive Abnormal Negative for bacterial vaginosis [facility] Comment on above: Order Comment: Speci men Type: SWABOrdering Facility: [facility] Address: [address] [place] [address] Performed By: #### C VTV, BVAMP ####[facility] LABCLIA [id number] [address] [place] FRANCESCO/TRICHOMONAS NAATon 0 07-12-2023 C. glabrata RNA ODILON+probe Ql (Vag fld) Negative Negative for Francesco glabrata [facility] Francesco sp DNA ODILON+probe Ql (Vag fld) Positive Abnormal Negative for Francesco species [facility] T. vaginalis DNA ODILON+probe Ql (Unsp spec) Negative Negative for Trichomonas vaginalis by amplification [facility] C. glabrata RNA ODILON+probe Ql (Vag fld) Negative Normal Negative for Francesco glabrata [facility] Comment on above: Order Comment: Speci men Type: SWABOrdering Facility: [facility] Address: [address] [place] [address] Performed By: #### C VTV, BVAMP ####[facility] LABCLIA [id number] [place] [address] [place] Francesco sp DNA ODILON+probe Ql (Vag fld) Positive Abnormal Negative for Francesco species [facility] Comment on above: Order Comment: Speci men Type: SWABOrdering Facility: [facility] Address: [address] [place], [place] [address] Performed By: #### C VTV, BVAMP ####[facility] LABCLIA [id number] [address] [place] T. vaginalis DNA ODILON+probe Ql (Unsp spec) Negative Normal Negative for Trichomonas vaginalis by amplification [facility] Comment on above: Order Comment: Speci men Type: SWABOrdering Facility: [facility] Address: [address] [place] [address] Performed By: #### C VTV, BVAMP ####[facility] LABCLIA [id number] [address] [place] Cara 07-12-2023 CNPN Telephone (OBGYWM) ERICA TORO ([id number]) 1995 F Date Time Provider Department 07/12/23 LEONARDO UPTON OBTHUYWDomonique During your visit today, we recorded the following information about you: Anahy Wood RN 07/12/2023 11:28 AM Signed 27w3d Calling with pink spotting this morning. Noticed few times with wiping now. Having jonathan soto every few minutes. Not painful and she doesn't notice then unless she feels abdomen and notices it is tightening. No leaking fluid. Good movement. No recent intercourse. Please advise. Leonardo Mtz RN, MD 07/12/2023 12:03 PM Signed Can come in at 1.20 for Priyanka Montgomery LPN 07/12/2023 12:10 PM Signed Pt notified and assisted to schedule appointment to be seen today. Priyanka Doe LPN Allergies As of Date: 07/12/2023 (No Known Allergies) Date Reviewed: 06/23/2023 Reviewed by: Cortney Cash APRN.CNM - Fully Assessed Reason for Visit: OB - spotting [Other] Prescriptions as of 07/12/2023 - Lactobacillus acidophilus (FLORAJEN ACIDOPHILUS) 20 billion cell cap Take 1 capsule by mouth once daily. - doxylamine (UNISOM, DOXYLAMINE,) 25 mg tab Take 1 tablet by mouth daily at bedtime. - fm90-dpyq ps-folate 1 29 mg iron- 1 mg chew Take 1 tablet by mouth once daily. - aspirin, enteric coated (ASPIRIN, ENTERIC COATED) 81 mg EC tablet Take 2 tablets by mouth once daily. Problem List As Of Date 07/12/2023 Noted Resolved Bleeding in early [O20.9] 2017 11/12/2017 Quit smoking [Z87.891] 2017 02/19/2023 History of thyroid disorder [Z86.39] 2017 Patient request for diagnostic testing [Z01.89] 2017 Atypical squamous cell changes of undetermined *11/12/2017 Normal in first trimester [Z34.91] 11/29/2017 12/15/2018 High risk due to maternal drug abuse,*11/29/2017 12/15/2018 Positive GBS test [B95.1] 05/13/2018 12/15/2018 Short interval between pregnancies affecting pr*12/08/2018 02/19/2023 History of bipolar disorder [Z86.59] 12/08/2018 Marijuana use [F12.90] 07/25/2019 02/19/2023 40 weeks gestation of [Z3A.40] 08/19/2019 09/08/2021 Intact amniotic membranes [Z34.90] 08/19/2019 02/19/2023 Threatened labor at term [O47.9] 08/19/2019 09/08/2021 Subchorionic hematoma in first trimester [O41.8*09/08/2021 02/19/2023 Vaginal bleeding during [O46.90] 09/08/2021 02/19/2023 Current with history of spontaneous a*02/15/2023 History of alcohol abuse [F10.11] 02/15/2023 History of posttraumatic stress disorder (PTSD)*02/18/2023 Supervision of high risk in first tri*02/19/2023 Date of last menstrual period (LMP) unknown [Z7*02/19/2023 ASCUS with positive high risk HPV cervical [R87*02/26/2023 Encounter Status:Closed by PRIYANKA DOE LPN on 07/12/23 Normal [facility] UA DIP, URINE (POC)on 2022 BILIRUBIN UA (POCT) Negative Negative [facility] CLARITY UA (POCT) Slightly Cloudy Cl [facility] COLOR UA (POCT) Yellow [facility] GLUCOSE UA (POCT) Negative Negative mg/dL [facility] Hemoglobin Ql (U) Negative [facility] KETONE UA (POCT) Negative Negative mg/dL [facility] LEUKOCYTES UA (POCT) Trace Abnormal Negative [facility] NITRITE UA (POCT) Negative Negative [facility] PH UA (POCT) 6.5 4.5 - 8.0 [facility] Protein Ql (U) Negative Negative mg/dL [facility] SPECIFIC GRAVITY UA (POCT) 1.015 1.005 - 1.030 [facility] UROBILINOGEN UA (POCT) 2.0 E.U./dL Abnormal Normal E.U./ dL [facility] CNCOon 06-29-2023 CNCO Letter Text Normal [facility] OBSTETRIC ULTRASOUND WHIon 0 06-29-2023 [facility] URINE OB DIP B/Oon 3 Glucose Ql (U) Negative Neg mg/dL [facility] Protein.monoclonal (U) [Mass/Vol] Negative Neg mg/dL [facility] CNPNon 06-14-2023 NGUYENN Telephone (OBGYWM) ERICA TORO ([id number]) 1995 F Date Time Provider Department 06/14/23 DULCE SHANNON OBWILLIAN During your visit today, we recorded the following information about you: Allergies As of Date: 06/14/2023 (No Known Allergies) Date Reviewed: 05/26/2023 Reviewed by: Marilyn Darden Ma - Fully Assessed Reason for Visit: Orders [681] Primary Visit Diagnosis:Encounter for follow-up ultrasound of anatomy [Z36.2] Order(s):OBSTETRIC ULTRASOUND [facility] [[id number]] Order #: [id number]: 1 FUTURE Prescriptions as of 06/14/2023 - Lactobacillus acidophilus (FLORAJEN ACIDOPHILUS) 20 billion cell cap Take 1 capsule by mouth once daily. - doxylamine (UNISOM, DOXYLAMINE,) 25 mg tab Take 1 tablet by mouth daily at bedtime. - br22-muuo ps-folate 1 29 mg iron- 1 mg chew Take 1 tablet by mouth once daily. - aspirin, enteric coated (ASPIRIN, ENTERIC COATED) 81 mg EC tablet Take 2 tablets by mouth once daily. Problem List As Of Date 06/14/2023 Noted Resolved Bleeding in early [O20.9] 2017 11/12/2017 Quit smoking [Z87.891] 2017 02/19/2023 History of thyroid disorder [Z86.39] 2017 Patient request for diagnostic testing [Z01.89] 2017 Atypical squamous cell changes of undetermined *11/12/2017 Normal in first trimester [Z34.91] 11/29/2017 12/15/2018 High risk due to maternal drug abuse,*11/29/2017 12/15/2018 Positive GBS test [B95.1] 05/13/2018 12/15/2018 Short interval between pregnancies affecting pr*12/08/2018 02/19/2023 History of bipolar disorder [Z86.59] 12/08/2018 Marijuana use [F12.90] 07/25/2019 02/19/2023 40 weeks gestation of [Z3A.40] 08/19/2019 09/08/2021 Intact amniotic membranes [Z34.90] 08/19/2019 02/19/2023 Threatened labor at term [O47.9] 08/19/2019 09/08/2021 Subchorionic hematoma in first trimester [O41.8*09/08/2021 02/19/2023 Vaginal bleeding during [O46.90] 09/08/2021 02/19/2023 Current with history of spontaneous a*02/15/2023 History of alcohol abuse [F10.11] 02/15/2023 History of posttraumatic stress disorder (PTSD)*02/18/2023 Supervision of high risk in first tri*02/19/2023 Date of last menstrual period (LMP) unknown [Z7*02/19/2023 ASCUS with positive high risk HPV cervical [R87*02/26/2023 Encounter Status:Closed by DULCE SHANNON on 06/14/[address] [facility] C[facility]N Telephone (OBGYWM) ERICA TORO ([id number]) 1995 F Date Time Provider Department 06/02/23 CHASEMIKIECORTNEY OBGYWM During your visit today, we recorded the following information about you: Kari Balderas RN 06/02/2023 4:26 PM Signed d Received breast pump order from [place]. To to sign. Kari Nunn RN, RN 06/02/2023 4:50 PM Signed Faxed Allergies As of Date: 06/02/2023 (No Known Allergies) Date Reviewed: 05/26/2023 Reviewed by: Marilyn Darden Ma - Fully Assessed Reason for Visit: Breast Pump [Other] Prescriptions as of 06/02/2023 - Lactobacillus acidophilus (FLORAJEN ACIDOPHILUS) 20 billion cell cap Take 1 capsule by mouth once daily. - doxylamine (UNISOM, DOXYLAMINE,) 25 mg tab Take 1 tablet by mouth daily at bedtime. - aq94-fkft ps-folate 1 29 mg iron- 1 mg chew Take 1 tablet by mouth once daily. - aspirin, enteric coated (ASPIRIN, ENTERIC COATED) 81 mg EC tablet Take 2 tablets by mouth once daily. Problem List As Of Date 06/02/2023 Noted Resolved Bleeding in early [O20.9] 2017 11/12/2017 Quit smoking [Z87.891] 2017 02/19/2023 History of thyroid disorder [Z86.39] 2017 Patient request for diagnostic testing [Z01.89] 2017 Atypical squamous cell changes of undetermined *11/12/2017 Normal in first trimester [Z34.91] 11/29/2017 12/15/2018 High risk due to maternal drug abuse,*11/29/2017 12/15/2018 Positive GBS test [B95.1] 05/13/2018 12/15/2018 Short interval between pregnancies affecting pr*12/08/2018 02/19/2023 History of bipolar disorder [Z86.59] 12/08/2018 Marijuana use [F12.90] 07/25/2019 02/19/2023 40 weeks gestation of [Z3A.40] 08/19/2019 09/08/2021 Intact amniotic membranes [Z34.90] 08/19/2019 02/19/2023 Threatened labor at term [O47.9] 08/19/2019 09/08/2021 Subchorionic hematoma in first trimester [O41.8*09/08/2021 02/19/2023 Vaginal bleeding during [O46.90] 09/08/2021 02/19/2023 Current with history of spontaneous a*02/15/2023 History of alcohol abuse [F10.11] 02/15/2023 History of posttraumatic stress disorder (PTSD)*02/18/2023 Supervision of high risk in first tri*02/19/2023 Date of last menstrual period (LMP) unknown [Z7*02/19/2023 ASCUS with positive high risk HPV cervical [R87*02/26/2023 Encounter Status:Closed by KARI BALDERAS RN on 06/02/23 [facility] ALPHA FETOPRO MATERNALon AFP, MATERNAL 0.90 MoM Normal [facility] Comment on above: Order Comment: Speci men Type: BLOOD SPECIMENOrdering Facility: [facility] Address: [address] [address] Result Comment: 54.7 7 ng/mL Performed By: #### A FPMAT ####[facility] LABCLIA [id number] [address] OF [facility] DATE OF COLLECTION #1 05/26/23 Normal [facility] Comment on above: Order Comment: Speci men Type: BLOOD SPECIMENOrdering Facility: [facility] Address: [address] [address] Performed By: #### A FPMAT ####[facility] LABCLIA [id number] [place] [address] [place] DATE RECEIVED 05/27/23 Normal [facility] Comment on above: Order Comment: Speci men Type: BLOOD SPECIMENOrdering Facility: [facility] Address: [address] [address] Performed By: #### A FPMAT ####[facility] LABCLIA [id number] [address] [place] MEGAN 10/08/23 Normal [facility] Comment on above: Order Comment: Speci men Type: BLOOD SPECIMENOrdering Facility: [facility] Address: [address] [address] Performed By: #### A FPMAT ####[facility] LABCLIA [id number] [address] [place] GESTATION AT DATE OF SAMPLE 20 weeks 5 days (by scan) Normal [facility] Comment on above: Order Comment: Speci men Type: BLOOD SPECIMENOrdering Facility: [facility] Address: [address] [place] [address] Performed By: #### A FPMAT ####[facility] LABCLIA [id number] [place] [address] [place] INSULIN DEPENDENT DIABETES None Normal [facility] Comment on above: Order Comment: Speci men Type: BLOOD SPECIMENOrdering Facility: [facility] Address: [address] Performed By: #### A FPMAT ####[facility] LABCLIA [id number] [place] [address] [place] IVF No Normal [facility] Comment on above: Order Comment: Speci men Type: BLOOD SPECIMENOrdering Facility: [facility] Address: [address] Performed By: #### A FPMAT ####[facility] LABCLIA [id number] [address] [place] MATERNAL AFP COMMENT See comments below Normal [facility] Comment on above: Order Comment: Ambrosio dhaliwal Type: BLOOD SPECIMENOrdering Facility: [facility] Address: [address] [place] [address] Result Comment: INTE RPRETATION Screening result : Screen negative Risk of NTD : 1 in 6,100 Comment : The interpretation is for NTD only A screen negative result does not exclude the possibility of a neural tube defect, because screening does not detect all affected pregnancies Performed By: #### A FPMAT ####[facility] LABCLIA [id number] [place] [address] [place] MATERNAL AGE AT MEGAN 27 years Normal [facility] Comment on above: Order Comment: Ambrosio dhaliwal Type: BLOOD SPECIMENOrdering Facility: [facility] Address: [address] [place] [address] Performed By: #### A FPMAT ####[facility] LABCLIA [id number] [address] [place] PATIENT'S WEIGHT DAY OF COLLECTION 170 lb. Normal [facility] Comment on above: Order Comment: Ambrosio dhaliwal Type: BLOOD SPECIMENOrdering Facility: [facility] Address: [address] [place] [address] Performed By: #### A FPMAT ####[facility] LABCLIA [id number] [address] [place] INTERP-MATERNAL AFP Negative Normal Screen Negative [facility] Comment on above: Order Comment: Speci men Type: BLOOD SPECIMENOrdering Facility: [facility] Address: [address] [address] Performed By: #### A FPMAT ####[facility] LABCLIA [id number] [address] [place] PREVIOUS NTD None Normal [facility] Comment on above: Order Comment: Speci men Type: BLOOD SPECIMENOrdering Facility: [facility] Address: [address] [place] [address] Performed By: #### A FPMAT ####[facility] LABCLIA [id number] [address] [place] RISK OF NTD ;1:6100 Normal [facility] Comment on above: Order Comment: Speci men Type: BLOOD SPECIMENOrdering Facility: [facility] Address: [address] [place] [address] Performed By: #### A FPMAT ####[facility] LABCLIA [id number] [address] [place] SAMPLE #1 [id number] Normal [facility] Comment on above: Order Comment: Speci men Type: BLOOD SPECIMENOrdering Facility: [facility] Address: [address] [place] [address] Performed By: #### A FPMAT ####[facility] LABCLIA [id number] [address] [place] STAFF REVIEW (MATERNAL SCREENS) Reviewed by Matthew Turpin PhD Normal [facility] Comment on above: Order Comment: Speci men Type: BLOOD SPECIMENOrdering Facility: [facility] Address: [address] [place] [address] Performed By: #### A FPMAT ####[facility] LABCLIA [id number] [place] [address] [place] CNCOon 05-26-2023 CNCO Letter Text Letter Text Letter Text Normal [facility] OBSTETRIC ULTRASOUND WHIon 0 05-26-2023 [facility] URINE OB DIP B/Oon 3 Glucose Ql (U) Negative Neg mg/dL [facility] Protein.monoclonal (U) [Mass/Vol] Negative Neg mg/dL [facility] URINE OB DIP B/Oon 3 Glucose Ql (U) Negative Neg mg/dL [facility] Protein.monoclonal (U) [Mass/Vol] Negative Neg mg/dL [facility] CNPNon 04-06-2023 CNPN Telephone (OBGYWM) ERICA TORO ([id number]) 1995 F Date Time Provider Department 04/06/23 CORTNEY CASH During your visit today, we recorded the following information about you: Kari Balderas RN 04/06/2023 9:09 AM Signed 13w4d Patient viewed her vaginal cultures on Mychart and seen she was BV+ and yeast. Would like prescriptions sent to [facility] in [place]. Added to her pharmacy list. Please review in SW's absence. Patient would like a call back. Kari Cash APRN.CNM 04/06/2023 9:28 AM Signed Flagyl 500 mg PO BID x 7 days sent. Please have patient use Monistat 7 vaginally x 7 nights for yeast. TREVOR Iglesias LPN 04/06/2023 9:43 AM Signed Pt notified. Priyanka Wood RN 04/06/2023 9:51 AM Signed Patient called back into office and notified of medications. Anahy Wood RN Allergies As of Date: 04/06/2023 (No Known Allergies) Date Reviewed: 04/05/2023 Reviewed by: Pat Nguyễn MA - Fully Assessed Reason for Visit: Results [95] Order(s):metroNIDAZO LE (FLAGYL) 500 mg tabletTake 1 tablet by mouth twice daily for 7 days.Disp: 14 tabletRfl: 0 Prescriptions as of 04/06/2023 - metroNIDAZOLE (FLAGYL) 500 mg tablet Take 1 tablet by mouth twice daily for 7 days. - Lactobacillus acidophilus (FLORAJEN ACIDOPHILUS) 20 billion cell cap Take 1 capsule by mouth once daily. - doxylamine (UNISOM, DOXYLAMINE,) 25 mg tab Take 1 tablet by mouth daily at bedtime. - ph34-gpnc ps-folate 1 29 mg iron- 1 mg chew Take 1 tablet by mouth once daily. - aspirin, enteric coated (ASPIRIN, ENTERIC COATED) 81 mg EC tablet Take 2 tablets by mouth once daily. Problem List As Of Date 04/06/2023 Noted Resolved Bleeding in early [O20.9] 2017 11/12/2017 Quit smoking [Z87.891] 2017 02/19/2023 History of thyroid disorder [Z86.39] 2017 Patient request for diagnostic testing [Z01.89] 2017 Atypical squamous cell changes of undetermined *11/12/2017 Normal in first trimester [Z34.91] 11/29/2017 12/15/2018 High risk due to maternal drug abuse,*11/29/2017 12/15/2018 Positive GBS test [B95.1] 05/13/2018 12/15/2018 Short interval between pregnancies affecting pr*12/08/2018 02/19/2023 History of bipolar disorder [Z86.59] 12/08/2018 Marijuana use [F12.90] 07/25/2019 02/19/2023 40 weeks gestation of [Z3A.40] 08/19/2019 09/08/2021 Intact amniotic membranes [Z34.90] 08/19/2019 02/19/2023 Threatened labor at term [O47.9] 08/19/2019 09/08/2021 Subchorionic hematoma in first trimester [O41.8*09/08/2021 02/19/2023 Vaginal bleeding during [O46.90] 09/08/2021 02/19/2023 Current with history of spontaneous a*02/15/2023 History of alcohol abuse [F10.11] 02/15/2023 History of posttraumatic stress disorder (PTSD)*02/18/2023 Supervision of high risk in first tri*02/19/2023 Date of last menstrual period (LMP) unknown [Z7*02/19/2023 ASCUS with positive high risk HPV cervical [R87*02/26/2023 Prescriptions ordered this encounter Disp Refills Start End METRONIDAZOLE 500 MG TABLET 14 t* 0 04/06/2023 04/13/2023 Route: ORAL Sig: Take 1 tablet by mouth twice daily for 7 days. Encounter Status:Closed by CORTNEY CASH on 04/06/23 Normal [facility] BACTERIAL VAGINOSIS AMPLIFIC ATIONon 04-05-2023 Lactobacillus crispatus+gasseri+jense reema + Gardnerella vaginalis + Atopobium vaginae rRNA ODILON+probe Ql (Vag fld) Positive Abnormal Negative for bacterial vaginosis [facility] Comment on above: Order Comment: Speci men Type: SWABOrdering Facility: [facility] Address: [address] [place] [address] Performed By: #### B VAMP, CVTV ####[facility] LABCLIA [id number] [address] STATES OF [facility] FRANCESCO / TRICHOMONAS AMPLIF ICATIONon 04-05-2023 FRANCESCO / TRICHOMONAS AMPLIFICATION FRANCESCO SPECIES GROUP RNA: Positive for Francesco species FRANCESCO GLABRATA RNA: Negative for Francesco glabrata TRICH VAG AMPLIFICATION RNA: Negative for Trichomonas vaginalis by amplification Abnormal [facility] Comment on above: Performed By: #### B VAMP, CVTV ####[facility] LABCLIA [id number] [place] [address] [place] CNOVon 04-05-2023 CNOV Office Visit (OBGYWM) ERICA TORO ([id number]) 1995 F Date Time Provider Department 04/05/23 2:00 PM LEONARDO UPTON During your visit today, we recorded the following information about you: Blood pressure Weight 108/64 74.6 kg Leonardo Upton MD 04/05/2023 5:35 PM Signed Child Care Nurse offered: Patient declinesAbdulaziz Maldonado is a 27 year old who presents today for a colposcopy. The patient's last pap smear was ASCUS with positive HPV from January 2023. Patient has a history of abnormal pap: No. The patient has had prior treatment: none. test: n/a UNIVERSAL PROTOCOL / SAFETY CHECKLIST Procedure to be Performed: Colposcopy Sign In: A Moment of CARE was completed. Personnel directly involved with the procedure wore the appropriate PPE (Personal Protective Equipment). Patient/Surrogate Stated/Verified: PATIENT VERIFIED(optional for EMERGENT procedures): Patient name, Date of , Relevant allergies, and The intended procedure Time Out Communication: Intended patient and procedure match the source documents. Consent documented and matches the intended procedure. Sign Out: SIGN OUT (optional for EMERGENT procedures): No specimen collected. All instruments, equipment, possible retained foreign bodies accounted for. Post-procedure follow-up management communicated and Plan of Care Visit completed when applicable. PROCEDURE: EXTERNAL GENITALIA: Normal in appearance without lesions VAGINA: Normal in appearance without lesions CERVIX: Speculum placed in vagina and excellent visualization of cervix achieved. Cervix swabbed x 3 with 3% acetic acid solution. Cervix grossly normal. Squamocolumnar junction visualized. Minimal acetowhite changes noted 6 o'clock. BIOPSY: Not done. ECC: not done HEMOSTASIS: Obtained with n/a Procedure Summary: Patient tolerated procedure well and colposcopy was adequate. ASSESSMENT: HPV effect and mild dysplasia PLAN: Post-procedure instructions reviewed and written material given to the patient. Follow up . +FHT today. DO Pat West MA 04/05/2023 1:58 PM Signed YOUR RECOVERY It may take a few weeks for your cervix to heal. While your cervix heals, you may have: - Vaginal bleeding (less than a normal menstrual period) - Mild cramping - A brown-black vaginal discharge (similar to coffee grounds) which is a result of the paste used to help stop bleeding from the procedure Do NOT put anything in the vagina for 1 week after your colposcopy if your doctor does a biopsy of your cervix. This includes sex, tampons, and douches. If you have any discomfort, you may take an over the counter pain medication (motrin, advil, ibuprofen, tylenol, etc). If this does not relieve your discomfort, contact your doctor's office for a prescription strength pain medication. It is okay to wear a sanitary pad until the discharge and spotting stops. RISKS Although problems seldom occur with colposcopy, there can be some complications. You may feel faint during and shortly after the procedure as well as have some bleeding and vaginal discharge after the procedure. There is also a risk of infection after the procedure. These complications are rare and can be easily treated. You should contact you doctor is you have any of the following: - Heavy bleeding (more than your normal period) - Bleeding with clots - Severe abdominal pain - Fever (more than 100.4F) - Foul smelling vaginal discharge RESULTS If a biopsy was taken, we will have the results of your biopsy in 1-2 weeks. If you do not hear the results of your biopsy after 2 weeks, please contact your physicians office for the results. Depending on the biopsy results, your doctor will determine your follow up plan which may include further testing or treatments. STAYING HEALTHY After the procedure, you will need to see your doctor for follow up visits during the year. At these visits your doctor will check the health of your cervix with a pap smear. After three normal pap smears, your doctor will allow you to return to having exams once a year. If you have another abnormal pap smear, you may need closer follow up for longer or you may need additional treatment. By making a few lifestyle changes after the procedure, you can help protect the health of your cervix: - Have regular pelvic exams and pap smears as ordered by your doctor. - Stop smoking as smoking increases your risk of developing a cancer of the cervix - If you have more than one sexual partner, limit your number of partners and use condoms to reduce your risks of STDs. If you have any additional questions, please contact your doctor's office. Allergies As of Date: 04/05/2023 (No Known Allergies) Date Reviewed: 04/05/2023 Reviewed by: Pat Nguyễn MA - Fully Assessed Reason for Visit: Colposcopy (more content not included)... Normal [facility] CBC panel Auto (Bld)on 03-25 Erythrocyte distribution width (RBC) [Ratio] 14.8 % Normal 11.5-15.0 [facility] Comment on above: Order Comment: Speci men Type: BLOOD SPECIMENOrdering Facility: [facility] Address: [address] [place] [address] Performed By: #### 5 8410-2 ####[facility]IA [id number] [place] [address] [place] Hematocrit (Bld) [Volume fraction] 39.2 % Normal 36.0-46.0 [facility] Comment on above: Order Comment: Speci men Type: BLOOD SPECIMENOrdering Facility: [facility] Address: [address] [place] [address] Performed By: #### 5 8410-2 ####[facility] [id number] [place] [address] [place] Hemoglobin (Bld) [Mass/Vol] 12.8 g/dL Normal 11.5-15.5 [facility] Comment on above: Order Comment: Speci men Type: BLOOD SPECIMENOrdering Facility: [facility] Address: [address] [place] [address] Performed By: #### 5 8410-2 ####[facility] [id number] [place] [address] [place] MCH (RBC) [Entitic mass] 25.0 pg Low 26.0-34.0 [facility] Comment on above: Order Comment: Speci men Type: BLOOD SPECIMENOrdering Facility: [facility] Address: [address] [place] [address] Performed By: #### 5 8410-2 ####[facility] [id number] [place] [address] [place] MCHC (RBC) [Mass/Vol] 32.7 g/dL Normal 30.5-36.0 [facility] Comment on above: Order Comment: Speci men Type: BLOOD SPECIMENOrdering Facility: [facility] Address: [address] [place] [address] Performed By: #### 5 8410-2 ####[facility] S[facility]THGHAZAL [id number] [place] [address] [place] MCV (RBC) [Entitic vol] 76.7 fL Low 80.0-100.0 [facility] Comment on above: Order Comment: Speci men Type: BLOOD SPECIMENOrdering Facility: [facility] Address: [address] [place] [address] Performed By: #### 5 8410-2 ####[facility] SOUTHSANDYCandelario [id number] [place] [address] [place] Nucleated RBC (Bld) [#/Vol] 10*3/uL Normal <0.01 [facility] Comment on above: Order Comment: Speci men Type: BLOOD SPECIMENOrdering Facility: [facility] Address: [address] [place] [address] Performed By: #### 5 8410-2 ####[facility] [id number] [place] [address] [place] Platelet mean volume (Bld) [Entitic vol] 11.2 fL Normal 9.0-12.7 [facility] Comment on above: Order Comment: Speci men Type: BLOOD SPECIMENOrdering Facility: [facility] Address: [address] [place] [address] Performed By: #### 5 8410-2 ####[facility] [id number] [place] [address] [place] Platelets (Bld) [#/Vol] 216 10*3/uL Normal 150-400 [facility] Comment on above: Order Comment: Speci men Type: BLOOD SPECIMENOrdering Facility: [facility] Address: [address] [place] [address] Performed By: #### 5 8410-2 ####[facility] SOUTHNCLIA [id number] [place] [address] [place] RBC (Bld) [#/Vol] 5.11 10*6/uL Normal 3.90-5.20 [facility] Comment on above: Order Comment: Speci men Type: BLOOD SPECIMENOrdering Facility: [facility] Address: [address] [place] [address] Performed By: #### 5 8410-2 ####[facility] SOUTHNCA [id number] [place] [address] [place] WBC (Bld) [#/Vol] 7.73 10*3/uL Normal 3.70-11.00 [facility] Comment on above: Order Comment: Speci men Type: BLOOD SPECIMENOrdering Facility: [facility] Address: [address] [place] [address] Performed By: #### 5 8410-2 ####[facility] COUNTYA [id number] [place] [address] [place] HBV surface Ag Ser Qlon 06-0 HBV surface Ag Ql (S) Negative Normal Negative [facility] Comment on above: Order Comment: Speci men Type: BLOOD SPECIMENOrdering Facility: [facility] Address: [address] [place] [address] Performed By: #### 5 195-3, 34027-7, 01829-3 ####[facility] LABCLIA [id number] [address] [place] HCV Ab Ser Qlon 03-25-2023 HCV Ab Ql (S) Negative Normal Negative [facility] Comment on above: Order Comment: Speci men Type: BLOOD SPECIMENOrdering Facility: [facility] Address: [address] [place] [address] Result Comment: The result suggests no evidence of active infection with Hepatitis C virus. Should recent infection be suspected, repeat testing may be considered 4-6 weeks after this draw. Performed By: #### 1 6128-1 ####[facility] LABIA [id number] [place] [address] [place] HIV 1+2 Ab IA Qlon 3 HIV 1 and 2 Ab IA.rapid Nom Normal [facility] Comment on above: Order Comment: Speci men Type: BLOOD SPECIMENOrdering Facility: [facility] Address: [address] [place] [address] Result Comment: Test not indicated. Performed By: #### 5 195-3, 72722-5, 31323-8 ####[facility] LABIA [id number] [place] [address] [place] HIV 1+2 Ab+HIV1 p24 Ag IA Ql Non-Reactive Normal Nonreactive [facility] Comment on above: Order Comment: Speci men Type: BLOOD SPECIMENOrdering Facility: [facility] Address: [address] [place] [address] Performed By: #### 5 195-3, 44611-4, 06487-2 ####[facility] H[facility]PITALIA [id number] [place] [address] [place] HIVINT Normal [facility] Comment on above: Order Comment: Speci men Type: BLOOD SPECIMENOrdering Facility: [facility] Address: [address] [place] [address] Result Comment: No e vidence of HIV-1 or HIV-2 infection. Should recent infection be suspected, repeat testing may be considered 2-3 weeks after this draw. [place] Rev. Code 3701.243(E): This information has been disclosed to you from confidential records protected from disclosure by state law. ???You shall make no further disclosure of this information without the specific, written, and informed release of the individual to whom it pertains or as otherwise permitted by state law. A general authorization for the release of medical or other information is not sufficient for the purpose of the release of HIV test results or diagnoses. Performed By: #### 5 195-3, 27652-7, 11566-2 ####[facility] LABCLIA [id number] [facility] [id number] [place] [address] OF [facility] TEIGNITR45 PLUSon 03-25-2023 Cell-free DNA./Cell-free DNA.total Dosage of chromosome-specific cfDNA (cfDNA) [Molar fraction] 6% Normal [facility] Comment on above: Order Comment: Speci men Type: BLOOD SPECIMENOrdering Facility: [facility] Address: [address] [place] [address] Performed By: #### M AT21 ####[facility] LABCLIA [id number] [place] [address] Chr 13+18+21+X+Y aneuploidy Dosage of chromosome-specific cfDNA Ql (cfDNA) Negative Normal [facility] Comment on above: Order Comment: Speci men Type: BLOOD SPECIMENOrdering Facility: [facility] Address: [address] [place] [address] Performed By: #### M AT21 ####[facility] LABCLIA [id number] [place] [address] Chr 21 trisomy Dosage of chromosome-specific cfDNA Ql (cfDNA) Negative Normal [facility] Comment on above: Order Comment: Speci men Type: BLOOD SPECIMENOrdering Facility: [facility] Address: [address] [place] [address] Performed By: #### M AT21 ####[facility] LABCLIA [id number] [place] [address] Chr X and Y aneuploidy risk Sequencing Ql (cfDNA) [Interp] Not detected Normal [facility] Comment on above: Order Comment: Speci men Type: BLOOD SPECIMENOrdering Facility: [facility] Address: [address] [address] Result Comment: Not Detected Not Detected Performed By: #### M AT21 ####[facility] LABCLIA [id number] [place] [address] Citation Ata (Reference lab test) Comment Normal [facility] Comment on above: Order Comment: Speci men Type: BLOOD SPECIMENOrdering Facility: [facility] Address: [address] [place] [address] Result Comment: 1. P delores GAN, et al. Ayde Med. 2012;14(3):296-305. 2. Patricia HONG, et al. Prenat Diag. 2013;33(6):591-597. 3. Ha Nuñez, et al. Clin Chem. 2015 Jan;61(4):608-616. 4. Ramin GAN, et al. Ayde Med. 2011;13(11):913-920. 5. ACOG/SM[facility] Practice Bulletin No. 226, Jul 2020. Performed By: #### M AT21 ####[facility] LABCLIA [id number] [address] [id number] Gestational age Estimated from conception date Ervin Normal [facility] Comment on above: Order Comment: Speci men Type: BLOOD SPECIMENOrdering Facility: [facility] Address: [address] [place] [address] Performed By: #### M AT21 ####[facility] LABCLIA [id number] [place] [address] GESTATIONALAGE AGE > OR = 9W Yes Normal [facility] Comment on above: Order Comment: Speci men Type: BLOOD SPECIMENOrdering Facility: [facility] Address: [address] [place] [address] Performed By: #### M AT21 ####[facility] LABCLIA [id number] [place] [address] Laboratory comment Ata (Report) Comment Normal [facility] Comment on above: Order Comment: Speci men Type: BLOOD SPECIMENOrdering Facility: [facility] Address: [address] [place] [address] Result Comment: The MaterniT(R) 21 PLUS laboratory-developed test (LDT) analyzes circulating cell-free DNA from a maternal blood sample. This test is used for screening purposes and not diagnostic. Clinical correlation is recommended. Validation data on twin pregnancies is limited and the ability of this test to detect aneuploidy in higher multiple gestations has not yet been validated. Performed By: #### M AT21 ####[facility] [id number] [address] [id number] market development director name Nom (Provider) Comment Normal [facility] Comment on above: Order Comment: Speci men Type: BLOOD SPECIMENOrdering Facility: [facility] Address: [address] [place] [address] Result Comment: This specimen showed an expected representation of chromosome 21, 18 and 13 material. Clinical correlation is suggested. Comment Vikram Lopez MD, PhD, Director, [employer] Performed By: #### M AT21 ####[facility] LABCLIA [id number] [place] [address] LIMITATIONS OF THE TEST Comment Normal [facility] Comment on above: Order Comment: Speci men Type: BLOOD SPECIMENOrdering Facility: [facility] Address: [address] [place] [address] Result Comment: Berhane williamson the results of these tests are highly reliable, discordant results, including inaccurate sex prediction, may occur due to placental, maternal, or mosaicism or neoplasm; vanishing twin; prior maternal organ transplant; or other causes. These tests are screening tests and not diagnostic; they do not replace the accuracy and precision of diagnosis with CVS or amniocentesis. A patient with a positive test result should be referred for genetic counseling and offered invasive diagnosis for confirmation of test results.[5] The results of this testing, including the benefits and limitations, should be discussed with a qualified healthcare provider. management decisions, including termination of the , should not be based on the results of these tests alone. The healthcare provider is responsible for the use of this information in the management of their patient. Sex chromosomal aneuploidies are not reportable for known multiple gestations. A negative result does not ensure an unaffected nor does it exclude the possibility of other chromosomal abnormalities or defects which are not a part of these tests. An uninformative result may be reported, the causes of which may include, but are not limited to, insufficient sequencing coverage, noise or artifacts in the region, amplification or sequencing bias, or insufficient fraction. These tests are not intended to identify pregnancies at risk for neural tube defects or ventral wall defects. Testing for whole chromosome abnormalities (including sex chromosomes) and for subchromosomal abnormalities could lead to the potential discovery of both and maternal genomic abnormalities that could have major, minor, or no, clinical significance. Evaluating the significance of a positive or a non-reportable result may involve both invasive testing and additional studies on the mother. Such investigations may lead to a diagnosis of maternal chromosomal or subchromosomal abnormalities, which on occasion may be associated with benign or malignant maternal neoplasms. These tests may not accurately identify triploidy, balanced rearrangements, or the precise location of subchromosomal duplications or deletions; these may be detected by diagnosis with CVS or amniocentesis. The ability to report results may be impacted by maternal BMI, maternal weight, maternal systemic lupus erythematosus (SLE) and/or by certain pharmaceutical agents such as low molecular weight heparin (for example: Lovenox(R), Xaparin(R), Clexane(R) and Fragmin(R)). Performed By: #### M AT21 ####[facility] LABNTQ-DataIA [id number] [place] [address] Monosomy X risk Dosage of chromosome-specific cfDNA Ql (Plasma cell-free+WBC DNA) [Interp] Not detected Normal [facility] Comment on above: Order Comment: Speci madhuri Type: BLOOD SPECIMENOrdering Facility: [facility] Address: [address] [address] Performed By: #### M AT21 ####[facility] LABCLIA [id number] [place] [address] NEGATIVE PREDICTIVE VALUE Note Normal [facility] Comment on above: Order Comment: Ambrosio dhaliwal Type: BLOOD SPECIMENOrdering Facility: [facility] Address: [address] [address] Result Comment: The Negative Predictive Value (NPV) for trisomy 21, 18, and 13 is greater than 99%. The NPV for SCA and ESS cannot be calculated as SCA and ESS are only reported when an abnormality is detected. Performed By: #### M AT21 ####[facility] LABIA [id number] [place] [address] NOTE Comment Normal [facility] Comment on above: Order Comment: Speci men Type: BLOOD SPECIMENOrdering Facility: [facility] Address: [address] [id number] Result Comment: See Notes [facility] is a subsidiary of [employer], using the brand [facility]. This test was developed and its performance characteristics determined by [facility]. It has not been cleared or approved by the Food and Drug Administration. This laboratory is certified under the Clinical Laboratory Improvement Amendments (CLIA) as qualified to perform high complexity clinical laboratory testing and accredited by the [employer] [place] [employer] ([employer]). If there is future clinical need for adding MaterniT GENOME testing, this specimen will be available until term. [facility] samples will not be retained beyond 60 days. [facility] patients will have to send a new sample for re-sequencing ([facility] Test Code: [id number]). Performed By: #### M AT21 ####[facility] LABIA [id number] [place] [address] PERFORMANCE CHARACTERISTICS Note Normal [facility] Comment on above: Order Comment: Ambrosio men Type: BLOOD SPECIMENOrdering Facility: [facility] Address: [place] [address] Result Comment: ! Sex ! Accuracy: 99.4% ! ! ! ! Region (associated syndrome) ! Est. Sens# ! Est. Spec ! ! ! ! Trisomy 21 (Down Syndrome) ! 99.1% ! 99.9% ! ! ! ! Trisomy 18 (De Leon Syndrome) ! >99.9% ! 99.6% ! ! ! ! Trisomy 13 (Patau Syndrome) ! 91.7% ! 99.7% ! ! ! ! Sex Chromosome Aneuploidies## ! 96.2% ! 99.7% ! ! ! * As reported in ISCA database nstd37 [https://www.ncbi.nlm.nih.gov/dbvar/studies/nstd37/ ] # Estimated Sensitivity. Sensitivity estimated across the observed size distribution of each syndrome [per ISCA database nstd37] and across the range of fractions observed in routine clinical NIPT. Actual sensitivity can also be influenced by other factors such as the size of the event, total sequence counts, amplification bias, or sequence bias. ## Ervin gestation only. Performed By: #### M AT21 ####[facility] LABCLIA [id number] [place] [address] POSITIVE PREDICTIVE VALUE N/A Normal [facility] Comment on above: Order Comment: Speci men Type: BLOOD SPECIMENOrdering Facility: [facility] Address: [address] [address] Performed By: #### M AT21 ####[facility] LABCLIA [id number] [place] [address] Reference Lab Test Method Comment Normal [facility] Comment on above: Order Comment: Speci men Type: BLOOD SPECIMENOrdering Facility: [facility] Address: [address] [place] [address] Result Comment: See Notes Circulating cell-free DNA was purified from the plasma component of maternal blood. The extracted DNA was then converted into a genomic DNA library for aneuploidy analysis of chromosomes 21, 18, and 13 via next generation sequencing.[1] Optional findings based on the test order include sex chromosome aneuploidy (SCA)[2], and enhanced sequencing series (ESS)[3], which will only be reported on as an additional finding when an abnormality is detected. SCA testing includes information on X and Y representation, while ESS testing includes deletions in selected regions (22q, 15q, 11q, 8q, 5p, 4p, 1p) and trisomy of chromosomes 16 and 22. Performed By: #### M AT21 ####[facility] LABCLIA [id number] [place] [address] Sex Dosage of chromosome-specific cfDNA Nom (cfDNA) Comment Normal [facility] Comment on above: Order Comment: Speci men Type: BLOOD SPECIMENOrdering Facility: [facility] Address: [address] [address] Result Comment: Cons istent with Male Performed By: #### M AT21 ####[facility] LABCLIA [id number] [place] [address] Test performance information Ata (Unsp spec) Comment Normal [facility] Comment on above: Order Comment: Speci men Type: BLOOD SPECIMENOrdering Facility: [facility] Address: [address] [place] [address] Result Comment: The performance characteristics of the MaterniT(R) 21 PLUS laboratory-developed test (LDT) have been determined in a clinical validation study with women at increased risk for chromosomal aneuploidy.[1-4] Performed By: #### M AT21 ####[facility] LABCLIA [id number] [place] [address] Trisomy 13 risk Dosage of chromosome-specific cfDNA Ql (cfDNA) [Interp] Negative Normal [facility] Comment on above: Order Comment: Speci men Type: BLOOD SPECIMENOrdering Facility: [facility] Address: [address] [place] [address] Performed By: #### M AT21 ####[facility] LABCLIA [id number] [place] [address] Trisomy 18 risk Dosage of chromosome-specific cfDNA Ql (Plasma cell-free+WBC DNA) [Interp] Negative Normal [facility] Comment on above: Order Comment: Speci madhuri Type: BLOOD SPECIMENOrdering Facility: [facility] Address: [address] [place] [address] Performed By: #### M AT21 ####[facility] LABCLIA [id number] [address] [place] [id number] NUCHAL TRANSLUCENCY WHIon [facility] RUBELLA IGG ABon 03-25-2023 RUBELLA IGG AB, QUAL Positive Normal Positive [facility] Comment on above: Order Comment: Speci men Type: BLOOD SPECIMENOrdering Facility: [facility] Address: [address] [place] [address] Result Comment: The result suggests recent or past exposure to Rubella virus or history of Rubella vaccination. Positive result may also be seen due to presence of passively-transferred antibodies. Please correlate with patient's history. Performed By: #### R UBIGG ####[facility] LABCLIA [id number] [facility] [id number] [address] [place] Reagin and Treponema pallidu m IgG and IgM [Interp]on 03-25-2023 SYPHILIS INTERPRETATION Cannot exclude recent Treponemal infection if specimen collected within 7-10 days after appearance of suspect lesions or 2-3 weeks after an exposure. Clinical correlation is required. Normal [facility] Comment on above: Order Comment: Sudhiri men Type: BLOOD SPECIMENOrdering Facility: [facility] Address: [address] [place] [address] Performed By: #### 5 195-3, 97776-5, 78579-8 ####[facility] LABCLIA [id number] [place] [address] [place] T. pallidum IgG+IgM IA Ql (S) Non-Reactive Normal Nonreactive [facility] Comment on above: Order Comment: Speci men Type: BLOOD SPECIMENOrdering Facility: [facility] Address: [address] [place] [address] Performed By: #### 5 195-3, 30527-0, 70561-9 ####[facility] LABCLIA [id number] [place] [address] [place] TSH SerPl-aCncon 03-25-2023 TSH Qn 2.080 m[IU]/L Normal 0.270-4.200 [facility] Comment on above: Order Comment: Ambrosio dhaliwal Type: BLOOD SPECIMENOrdering Facility: [facility] Address: [address] [place] [address] Result Comment: If t he patient is , TSH reference range varies by gestational period: First Trimester (weeks 9-12): 0.180-2.990 mIU/L Second Trimester: 0.110-3.980 mIU/L Third Trimester: 0.480-4.710 mIU/L Ed Gandhi et al. A Practical Approach for the Verifications and Determination of Site- and Trimester-Specific Reference Intervals for Thyroid Function tests in . Thyroid, 2019:29:3:412-420. Misha Williamson, et al. 2017 Guidelines of the [place] [employer] for the Diagnosis and Management of Thyroid Disease during and the . Thyroid, 2017:27:3:315-389. Performed By: #### 3 016-3 ####[facility] LABCLIA [id number] [place] [address] [place] TYPE + SCREEN PRENATALon ABO A Normal [facility] Comment on above: Order Comment: Speci men Type: BLOOD SPECIMEN [facility] Address: [address] [place] [address] Performed By: #### T SPN #### [facility] CLIA [id number] [address] [place] [address] [place] HISTORICAL AB SCR STATUS Negative Normal [facility] Comment on above: Order Comment: Speci men Type: BLOOD SPECIMEN [facility] Address: [address] [place] [address] Performed By: #### T SPN #### [facility] CLIA [id number] [address] [place] [address] [place] Rh Nom (Bld) Positive Normal [facility] Comment on above: Order Comment: Speci men Type: BLOOD SPECIMEN [facility] Address: [address] [place] [address] Performed By: #### T SPN #### [facility] CLIA [id number] [address] [place] [address] [place] TYPE AND SCREEN EXPIRATION 03/28/2023 23:59 Normal [facility] Comment on above: Order Comment: Speci men Type: BLOOD SPECIMEN [facility] Address: [address] [address] Performed By: #### T SPN #### [facility] CLIA [id number] [address] [place] [address] [place] URINE OB DIP B/Oon 3 Glucose Ql (U) Negative Neg mg/dL [facility] Protein.monoclonal (U) [Mass/Vol] Negative Neg mg/dL [facility] CNPNon 03-10-2023 CNPN Telephone (OBGFVC) ERICA TORO ([id number]) 1995 F Date Time Provider Department 03/10/23 MARITZA RICHARD OBGFVC During your visit today, we recorded the following information about you: Kari Kinney RN 03/10/2023 3:27 PM Signed Initial risk assessment form submitted on March 10, 2023 Kari Kinney RN Allergies As of Date: 03/10/2023 (No Known Allergies) Date Reviewed: 02/18/2023 Reviewed by: Félix Knight Cma - Fully Assessed Reason for Visit: PRAF [Other] Prescriptions as of 03/10/2023 - Lactobacillus acidophilus (FLORAJEN ACIDOPHILUS) 20 billion cell cap Take 1 capsule by mouth once daily. - doxylamine (UNISOM, DOXYLAMINE,) 25 mg tab Take 1 tablet by mouth daily at bedtime. - pu67-gijw ps-folate 1 29 mg iron- 1 mg chew Take 1 tablet by mouth once daily. - aspirin, enteric coated (ASPIRIN, ENTERIC COATED) 81 mg EC tablet Take 2 tablets by mouth once daily. Problem List As Of Date 03/10/2023 Noted Resolved Bleeding in early [O20.9] 2017 11/12/2017 Quit smoking [Z87.891] 2017 02/19/2023 History of thyroid disorder [Z86.39] 2017 Patient request for diagnostic testing [Z01.89] 2017 Atypical squamous cell changes of undetermined *11/12/2017 Normal in first trimester [Z34.91] 11/29/2017 12/15/2018 High risk due to maternal drug abuse,*11/29/2017 12/15/2018 Positive GBS test [B95.1] 05/13/2018 12/15/2018 Short interval between pregnancies affecting pr*12/08/2018 02/19/2023 History of bipolar disorder [Z86.59] 12/08/2018 Marijuana use [F12.90] 07/25/2019 02/19/2023 40 weeks gestation of [Z3A.40] 08/19/2019 09/08/2021 Intact amniotic membranes [Z34.90] 08/19/2019 02/19/2023 Threatened labor at term [O47.9] 08/19/2019 09/08/2021 Subchorionic hematoma in first trimester [O41.8*09/08/2021 02/19/2023 Vaginal bleeding during [O46.90] 09/08/2021 02/19/2023 Current with history of spontaneous a*02/15/2023 History of alcohol abuse [F10.11] 02/15/2023 History of posttraumatic stress disorder (PTSD)*02/18/2023 Supervision of high risk in first tri*02/19/2023 Date of last menstrual period (LMP) unknown [Z7*02/19/2023 ASCUS with positive high risk HPV cervical [R87*02/26/2023 Encounter Status:Closed by KARI KINNEY on 03/10/23 [facility] Cara 03-04-2023 CNPN Telephone (OBGYWM) ERICA TORO ([id number]) 1995 F Date Time Provider Department 03/04/23 DULCE SHANNON During your visit today, we recorded the following information about you: Allergies As of Date: 03/04/2023 (No Known Allergies) Date Reviewed: 02/18/2023 Reviewed by: Félix Knight Cma - Fully Assessed Reason for Visit: Orders [681] Primary Visit Diagnosis: with uncertain viability, single or unspecified fetus [O36.80X0] Order(s):OBSTETRIC ULTRASOUND WHI [[id number]] Order #: [id number]: 1 FUTURE Prescriptions as of 03/04/2023 - Lactobacillus acidophilus (FLORAJEN ACIDOPHILUS) 20 billion cell cap Take 1 capsule by mouth once daily. - doxylamine (UNISOM, DOXYLAMINE,) 25 mg tab Take 1 tablet by mouth daily at bedtime. - rz15-bkgn ps-folate 1 29 mg iron- 1 mg chew Take 1 tablet by mouth once daily. - aspirin, enteric coated (ASPIRIN, ENTERIC COATED) 81 mg EC tablet Take 2 tablets by mouth once daily. Problem List As Of Date 03/04/2023 Noted Resolved Bleeding in early [O20.9] 2017 11/12/2017 Quit smoking [Z87.891] 2017 02/19/2023 History of thyroid disorder [Z86.39] 2017 Patient request for diagnostic testing [Z01.89] 2017 Atypical squamous cell changes of undetermined *11/12/2017 Normal in first trimester [Z34.91] 11/29/2017 12/15/2018 High risk due to maternal drug abuse,*11/29/2017 12/15/2018 Positive GBS test [B95.1] 05/13/2018 12/15/2018 Short interval between pregnancies affecting pr*12/08/2018 02/19/2023 History of bipolar disorder [Z86.59] 12/08/2018 Marijuana use [F12.90] 07/25/2019 02/19/2023 40 weeks gestation of [Z3A.40] 08/19/2019 09/08/2021 Intact amniotic membranes [Z34.90] 08/19/2019 02/19/2023 Threatened labor at term [O47.9] 08/19/2019 09/08/2021 Subchorionic hematoma in first trimester [O41.8*09/08/2021 02/19/2023 Vaginal bleeding during [O46.90] 09/08/2021 02/19/2023 Current with history of spontaneous a*02/15/2023 History of alcohol abuse [F10.11] 02/15/2023 History of posttraumatic stress disorder (PTSD)*02/18/2023 Supervision of high risk in first tri*02/19/2023 Date of last menstrual period (LMP) unknown [Z7*02/19/2023 ASCUS with positive high risk HPV cervical [R87*02/26/2023 Encounter Status:Closed by DULCE SHANNON on 03/04/23 Normal [facility] OBSTETRIC ULTRASOUND WHIon 0 03-04-2023 [facility] CNPNon 02-26-2023 CNPN Telephone (OBGYWM) ERICA TORO ([id number]) 1995 F Date Time Provider Department 02/26/23 MARITZA RICHARD During your visit today, we recorded the following information about you: Marii Gonsales RN 02/26/2023 11:44 AM Signed ----- Message from Maritza Richard APRN.CNM sent at 02/26/2023 11:35 AM EDT ----- Please notify patient ASCUS with positive HR HPV. Will need colposcopy with physician after 12 weeks. Thank you, TREVOR Hendricks RN 02/26/2023 11:48 AM Signed Attempted to contact patient, no answer and unable to leave a message. [facility] message sent to patient. Marii Gonsales RN 03/02/2023 10:44 AM Signed Attempted to contact patient again. No answer and unable to leave a message as voicemail box is not set up. Patient has not read [facility] message either. Upcoming appointment notes updated to schedule colposcopy. Marii Gonsales RN Allergies As of Date: 02/26/2023 (No Known Allergies) Date Reviewed: 02/18/2023 Reviewed by: Félix Knight Cma - Fully Assessed Reason for Visit: Abnormal Pap [273] Cmt: Prescriptions as of 03/02/2023 - Lactobacillus acidophilus (FLORAJEN ACIDOPHILUS) 20 billion cell cap Take 1 capsule by mouth once daily. - metroNIDAZOLE (FLAGYL) 500 mg tablet Take 1 tablet by mouth twice daily for 7 days. - doxylamine (UNISOM, DOXYLAMINE,) 25 mg tab Take 1 tablet by mouth daily at bedtime. - dn67-nzug ps-folate 1 29 mg iron- 1 mg chew Take 1 tablet by mouth once daily. - aspirin, enteric coated (ASPIRIN, ENTERIC COATED) 81 mg EC tablet Take 2 tablets by mouth once daily. Problem List As Of Date 02/26/2023 Noted Resolved Bleeding in early [O20.9] 2017 11/12/2017 Quit smoking [Z87.891] 2017 02/19/2023 History of thyroid disorder [Z86.39] 2017 Patient request for diagnostic testing [Z01.89] 2017 Atypical squamous cell changes of undetermined *11/12/2017 Normal in first trimester [Z34.91] 11/29/2017 12/15/2018 High risk due to maternal drug abuse,*11/29/2017 12/15/2018 Positive GBS test [B95.1] 05/13/2018 12/15/2018 Short interval between pregnancies affecting pr*12/08/2018 02/19/2023 History of bipolar disorder [Z86.59] 12/08/2018 Marijuana use [F12.90] 07/25/2019 02/19/2023 40 weeks gestation of [Z3A.40] 08/19/2019 09/08/2021 Intact amniotic membranes [Z34.90] 08/19/2019 02/19/2023 Threatened labor at term [O47.9] 08/19/2019 09/08/2021 Subchorionic hematoma in first trimester [O41.8*09/08/2021 02/19/2023 Vaginal bleeding during [O46.90] 09/08/2021 02/19/2023 Current with history of spontaneous a*02/15/2023 History of alcohol abuse [F10.11] 02/15/2023 History of posttraumatic stress disorder (PTSD)*02/18/2023 Supervision of high risk in first tri*02/19/2023 Date of last menstrual period (LMP) unknown [Z7*02/19/2023 ASCUS with positive high risk HPV cervical [R87*02/26/2023 Encounter Status:Closed by MARII GONSALES RN on 03/02/23 [facility] Cara 02-23-2023 CNPN Telephone (OBGYWM) CORTEZERICA Joaquin ([id number]) 1995 F Date Time Provider Department 02/23/23 MARITZA RICHARD During your visit today, we recorded the following information about you: Anahy Wood RN 02/23/2023 3:03 PM Addendum ----- Message from Maritza Richard APRN.CNM sent at 02/23/2023 11:45 AM EDT ----- [employer] message sent to patient for BV treatment. Please update record Hi Erica you tested positive for bacterial vaginosis, this is just an imbalance of your normal bacteria. I recommend taking Flagyl 500 mg by mouth twice daily for 7 days. No intercourse during treatment. Please let me know if you have any questions [facility] TREVOR Hendricks RN 02/23/2023 3:03 PM Signed Patient has not logged into [facility] in over 1 year. Attempted to call patient. Unable to leave message-mailbox is full. Anahy Wood RN 02/24/2023 4:14 PM Signed Patient notified. Anahy Wood RN Allergies As of Date: 02/23/2023 (No Known Allergies) Date Reviewed: 02/18/2023 Reviewed by: Félix Knight Cma - Fully Assessed Reason for Visit: Results [95] Prescriptions as of 02/24/2023 - Lactobacillus acidophilus (FLORAJEN ACIDOPHILUS) 20 billion cell cap Take 1 capsule by mouth once daily. - metroNIDAZOLE (FLAGYL) 500 mg tablet Take 1 tablet by mouth twice daily for 7 days. - doxylamine (UNISOM, DOXYLAMINE,) 25 mg tab Take 1 tablet by mouth daily at bedtime. - dj64-gwpb ps-folate 1 29 mg iron- 1 mg chew Take 1 tablet by mouth once daily. - aspirin, enteric coated (ASPIRIN, ENTERIC COATED) 81 mg EC tablet Take 2 tablets by mouth once daily. Problem List As Of Date 02/23/2023 Noted Resolved Bleeding in early [O20.9] 2017 11/12/2017 Quit smoking [Z87.891] 2017 02/19/2023 History of thyroid disorder [Z86.39] 2017 Patient request for diagnostic testing [Z01.89] 2017 Atypical squamous cell changes of undetermined *11/12/2017 Normal in first trimester [Z34.91] 11/29/2017 12/15/2018 High risk due to maternal drug abuse,*11/29/2017 12/15/2018 Positive GBS test [B95.1] 05/13/2018 12/15/2018 Short interval between pregnancies affecting pr*12/08/2018 02/19/2023 History of bipolar disorder [Z86.59] 12/08/2018 Marijuana use [F12.90] 07/25/2019 02/19/2023 40 weeks gestation of [Z3A.40] 08/19/2019 09/08/2021 Intact amniotic membranes [Z34.90] 08/19/2019 02/19/2023 Threatened labor at term [O47.9] 08/19/2019 09/08/2021 Subchorionic hematoma in first trimester [O41.8*09/08/2021 02/19/2023 Vaginal bleeding during [O46.90] 09/08/2021 02/19/2023 Current with history of spontaneous a*02/15/2023 History of alcohol abuse [F10.11] 02/15/2023 History of posttraumatic stress disorder (PTSD)*02/18/2023 Supervision of high risk in first tri*02/19/2023 Date of last menstrual period (LMP) unknown [Z7*02/19/2023 Encounter Status:Closed by ANAHY WOOD RN on 02/24/23 Normal [facility] BACTERIAL VAGINOSIS AMPLIFIC ATIONon 02-18-2023 Lactobacillus crispatus+gasseri+jense reema + Gardnerella vaginalis + Atopobium vaginae rRNA ODILON+probe Ql (Vag fld) Positive Abnormal Negative for bacterial vaginosis [facility] Comment on above: Order Comment: Speci men Type: SWABOrdering Facility: [facility] Address: [address] [place] [address] Performed By: #### Donny SAUNDERS [employer] ####[facility] LABCLIA [id number] [place] [address] [place] Bacteria Ur Culton 3 Bacteria identified Cx Nom (U) CULTURE, URINE: No growth (<1,000 CFU/ml) Normal [facility] Comment on above: Performed By: #### 6 30-4 ####[facility] LABCLIA [id number] [place] [address] [place] C. trachomatis+N. gonorrhoea e DNA ODILON+probe Ql (Unsp spec)on 02-18-2023 C. trachomatis DNA ODILON+probe Ql (Unsp spec) Negative Normal Negative for Chlamydia trachomatis by amplificaton [facility] Comment on above: Order Comment: Speci men Type: SWABOrdering Facility: [facility] Address: [address] [place] [address] Performed By: #### 3 6902-5 ####[facility] LABCLIA [id number] [place] [address] [place] N. gonorrhoeae DNA ODILON+probe Ql (Unsp spec) Negative Normal Negative for Neisseria gonorrhoeae by amplification [facility] Comment on above: Order Comment: Speci men Type: SWABOrdering Facility: [facility] Address: [address] [place] [address] Performed By: #### 3 6902-5 ####[facility] LABCLIA [id number] [place] [address] [place] FRANCESCO / TRICHOMONAS AMPLIF ICATIONon 02-18-2023 FRANCESCO / TRICHOMONAS AMPLIFICATION [employer] RNA: Negative for Francesco species FRANCESCO GLABRATA RNA: Negative for Francesco glabrata TRICH VAG AMPLIFICATION RNA: Negative for Trichomonas vaginalis by amplification Normal [facility] Comment on above: Performed By: #### B VAMP, CVTV ####[facility] LABCLIA [id number] [address] [facility] HPV W/GENOTYPE THIN PREPon 0 02-18-2023 HPV 16 Ag Ql (Unsp spec) Negative Normal Negative for HPV DNA high risk type 16 by PCR [facility] Comment on above: Order Comment: Speci men Type: FLUID SPECIMENOrdering Facility: [facility] Address: [address] [place] [address] Performed By: #### H PVHRT, [id number] ####[facility] LABCLIA [id number] [facility] [place] HPV 18 Ag Ql (Unsp spec) Negative Normal Negative for HPV DNA high risk type 18 by PCR [facility] Comment on above: Order Comment: Speci men Type: FLUID SPECIMENOrdering Facility: [facility] Address: [address] [place] [address] Performed By: #### H PVHRT, [id number] ####[facility] LABCLIA [id number] [address] [place] HPV 31+33+35+39+45+51+52+56 +58+59+66+68 DNA ODILON+probe Ql (Cvx) Positive for one or more of the following HPV DNA high risk types:31,33,35,39,45 ,51,52,56,58,59,66,6 8 by PCR Abnormal Negative for HPV DNA high risk types: 31,33,35,39,45,5 1,52,56,58,59,66 ,68 by PCR. [facility] Comment on above: Order Comment: Speci men Type: FLUID SPECIMENOrdering Facility: [facility] Address: [address] [place], [place] [id number] Performed By: #### H PVHRT, [id number] ####[facility] LABCLIA [id number] [place] [address] [place] PAP TESTon 02-18-2023 CASE REPORT Normal [facility] Comment on above: Order Comment: Speci men Type: FLUID SPECIMENOrdering Facility: [facility] Address: [address] [place] [address] Result Comment: Gyne cologic Cytology Report Case: [id number] Authorizing Provider: Maritza Richard APRN.CNM Collected: 02/18/2023 03:39 PM Ordering Location: OB/Gynecology Received: 02/18/2023 04:57 PM First Screen: Cathy Cosby, CT, ASCP Pathologist: Jessica Vazquez MD Specimen: Pap Test, ThinPrep, Cervix Performed By: #### H PVHRT, [id number] ####[facility] LABCLIA [id number] [place] [address] [place] CLINICAL HISTORY, CYTOLOGY, 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 (Indicate Weeks) Normal [facility] Comment on above: Order Comment: Speci men Type: FLUID SPECIMENOrdering Facility: [facility] Address: [address] [place] [address] Performed By: #### H PVHRT, [id number] ####[facility] LABCLIA [id number] [place] [address] [place] CYTOLOGY INTERPRETATION PAP Abnormal [facility] Comment on above: Order Comment: Speci men Type: FLUID SPECIMENOrdering Facility: [facility] Address: [address] [place] [address] Result Comment: Epit helial cell abnormality. Atypical squamous cells of undetermined significance (ASC-US) Performed By: #### H PVHRT, [id number] ####[facility] LABCLIA [id number] [address] [place] FINAL DIAGNOSIS A - Cervix Normal [facility] Comment on above: Order Comment: Speci men Type: FLUID SPECIMENOrdering Facility: [facility] Address: [address] [address] Result Comment: Sati sfactory for interpretation Epithelial cell abnormality. Atypical squamous cells of undetermined significance (ASC-US) Predominance of coccobacilli consistent with shift in vaginal natalie Performed By: #### H PVHRT, [id number] ####[facility] LABCLIA [id number] [address] [place] FINAL PERFORMING LAB Normal [facility] Comment on above: Order Comment: Speci men Type: FLUID SPECIMENOrdering Facility: [facility] Address: [address] [address] Result Comment: Tech nical component, home visit field care manager screening performed at [facility], [address] [place] [address] CLIA# [id number] Diagnostic interpretation performed at [facility], [address] [place] [address] CLIA# [id number] Mat Packer: Russell Davila M.D. Performed By: #### H PVHRT, [id number] ####[facility] LABCLIA [id number] [place] [address] [place] HPV REFLEX HPV if ASCUS Normal [facility] Comment on above: Order Comment: Speci men Type: FLUID SPECIMENOrdering Facility: [facility] Address: [address] Performed By: #### H PVHRT, [id number] ####[facility] LABCLIA [id number] [place] [address] [place] LMP 12/22/2022[unknown Normal [facility] Comment on above: Order Comment: Speci men Type: FLUID SPECIMENOrdering Facility: [facility] Address: [address] [place] [address] Performed By: #### H PVHRT, [id number] ####[facility] LABCLIA [id number] [address] PAP DISCLAIMER COMMENT The Pap Smear is a screening test for cervical cancer. False negative results occur with all screening tests, emphasizing the need for rescreening at recommended intervals, and clinical correlation. Normal [facility] Comment on above: Order Comment: Speci men Type: FLUID SPECIMENOrdering Facility: [facility] Address: [address] [place] [address] Performed By: #### H PVHRT, [id number] ####[facility] LABCLIA [id number] [address] [place] PAP MOVEMENT THERAPIST COMMENT This specimen has been analyzed by the ThinPrep Imaging System, an automated imaging and review system, which assists the laboratory in evaluating cells on ThinPrep Pap tests. Following automated imaging, selected buitrago from every slide are reviewed by a home visit field care manager. Normal [facility] Comment on above: Order Comment: Speci men Type: FLUID SPECIMENOrdering Facility: [facility] Address: [address] [place] [address] Performed By: #### H PVHRT, [id number] ####[facility] LABCLIA [id number] [address] [place] HCG QUAL UR B/Oon 03-06-2022 status Negative neg - pos [facility] Quality Check Yes [facility] EKG 12 Lead - Chest Painon 1 12-08-2019 [facility] Test Date: 2020-10-05 Pat Name: Erica Toro Department: ED Room: 06 Gender: F [employer]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1995 Requested By: PEGGY ARANDA Order Number: [id number] Reading MD: Macario Caro Measurements Intervals Daphne Rate: 124 P: 67 [place]: 128 QRS: -26 QRSD: 102 T: 65 QT: 340 QTc: 489 Interpretive Statements SINUS TACHYCARDIA BORDERLINE LEFT AXIS DEVIATION BORDERLINE PROLONGED QT INTERVAL Electronically Signed On 10-07-2020 8:02:46 EST by Macario [place], [place] [facility] Incoming Cardiology Results From [facility] - 10/07/2020 8:03 AM EST [facility] Test Date: 2020-10-05 Pat Name: Erica Toro Department: ED Room: 06 Gender: F [employer]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1995 Requested By: PEGGY ARANDA Order Number: [id number] Reading MD: Macario Caro Measurements Intervals Daphne Rate: 124 P: 67 [place]: 128 QRS: -26 QRSD: 102 T: 65 QT: 340 QTc: 489 Interpretive Statements SINUS TACHYCARDIA BORDERLINE LEFT AXIS DEVIATION BORDERLINE PROLONGED QT INTERVAL Electronically Signed On 10-07-2020 8:02:46 EST by Macario [place] Hemoglobin A1Con 10-07-2020 HbA1c (Bld) [Mass fraction] 4.4 % Normal 4.0-6.0 [facility] Comment on above: Result Comment: --Hg bA1C levels may not be accurate in patients who have renal disease, received recent blood transfusions, are anemic, or who have dyshemoglobinemia. Performed By: #### H A1C2, LIPD2 #### [facility] [address] [place] [address] HbA1c (Bld) [Mass fraction] 80 mg/dL Normal [facility] Comment on above: Performed By: #### H A1C2, LIPD2 #### [facility] [address] [place] [address] Hemoglobin A1con 10-07-2020 eAG 80 mg/dL [place] HbA1c (Bld) [Mass fraction] 4.4 % 4 - 6 % [place] Comment on above: --HgbA1C levels may not be accurate in patients who have renal disease, received recent blood transfusions, are anemic, or who have dyshemoglobinemia. Lipid Panelon 10-07-2020 Cholesterol [Mass/Vol] 196 mg/dL Normal < 200 [facility] Comment on above: Performed By: #### H A1C2, LIPD2 #### [facility] [employer] [facility] [address] [place] [address] Cholesterol in HDL [Mass/Vol] 90 mg/dL High 40-60 [facility] Comment on above: Performed By: #### H A1C2, LIPD2 #### [facility] [employer] [facility] [address] [place] [address] Cholesterol.total/Elif sterol in HDL [Mass ratio] 2 Normal [facility] Comment on above: Result Comment: Ref Range: < 3 Low Risk for CHD 3-6 Mod Risk for CHD > 6 High Risk for CHD Performed By: #### H A1C2, LIPD2 #### [facility] [employer] [facility] [address] [place] [address] Protein [Mass/Vol] 87 mg/dL Normal <100 [facility] Comment on above: Performed By: #### H A1C2, LIPD2 #### [facility] [employer] [facility] [address] [place] [address] Triglyceride [Mass/Vol] 93 mg/dL Normal <150 [facility] Comment on above: Performed By: #### H A1C2, LIPD2 #### [facility] [employer] [facility] [address] [place] [address] Lipid panel - fastingon 09-24 Cholesterol [Mass/Vol] 196 mg/dL <200 [place], [place] Cholesterol in HDL [Mass/Vol] 90 mg/dL High 40 - 60 mg/dL [place] Cholesterol in LDL [Mass/Vol] 87 mg/dL <100 [place] Cholesterol.total/Elif sterol in HDL [Mass ratio] 2 {ratio} [place] Comment on above: Ref Range: < 3 Low Risk for CHD 3-6 Mod Risk for CHD > 6 High Risk for CHD Interpretation and review of laboratory results Abnormal [place] Triglyceride [Mass/Vol] 93 mg/dL <150 M [place], [place] Otheron 10-07-2020 Test Performed by [facility] [employer] [facility], [address] [place] [address] [place] SARS-CoV-2 (MICRO DEPT)on SARS-CoV-2 (MICRO DEPT) SARS-CoV-2 --> Status: F Not Detected. Expected Result: Not Detected _ Real-time, RT-PCR performed on the Brown[employer] System by the [facility]. Negative results do not preclude SARS-CoV-2 infection and should not be used as the sole basis for treatment or other patient management decisions. This assay was developed by [employer] and distributed under an Emergency Use Authorization (EUA) granted by the FDA for the qualitative detection of SARS-CoV-2 nucleic acid. Expected Result: Not Detected _ Real-time, RT-PCR performed on the [employer] System by the [facility]. Negative results do not preclude SARS-CoV-2 infection and should not be used as the sole basis for treatment or other patient management decisions. This assay was developed by [employer] and distributed under an Emergency Use Authorization (EUA) granted by the FDA for the qualitative detection of SARS-CoV-2 nucleic acid. Normal [facility] Comment on above: Performed By: #### A OEG2 #### [facility] [address] [place] [address] Basic Metabolic Panelon 12 Anion gap [Moles/Vol] 11 Normal [facility] Comment on above: Performed By: #### B MP3, HEMDF, ETOH4, LFT3 #### [facility] [address] [place] [address] CO2 [Moles/Vol] 25 mmol/L Normal 22-30 [facility] Comment on above: Performed By: #### B MP3, HEMDF, ETOH4, LFT3 #### [facility] [address] [place] [address] Creatinine [Mass/Vol] 0.65 mg/dL Normal 0.52-1.25 [facility] Comment on above: Performed By: #### B MP3, HEMDF, ETOH4, LFT3 #### [facility] [address] [place] [address] GFR/1.73 sq M predicted among blacks MDRD (S/P/Bld) [Vol rate/Area] mL/min/{1.73_m2} Normal >60 [facility] Comment on above: Performed By: #### B MP3, HEMDF, ETOH4, LFT3 #### [facility] [address] [place] [address] GFR/1.73 sq M predicted among non-blacks MDRD (S/P/Bld) [Vol rate/Area] mL/min/{1.73_m2} Normal >60 [facility] Comment on above: Result Comment: KDIG O guidelines provide the following GFR categories: Stage GFR(ml/min/1.73 m2) Terms G1 >=90 Normal or high G2 60-89 Mildly decreased* G3a 45-59 Mildly to moderately decreased G3b 30-44 Moderately to severely decreased G4 15-29 Severely decreased G5 <15 Kidney failure *Relative to young adult level. In the absence of evidence of kidney damage, neither GFR category G1 nor G2 fulfill the criteria for CKD. The CKD-EPI equation is validated in individuals 18 years of age and older. Currently the best equation for estimating glomerular filtration rate (GFR) from serum creatinine in children is the Bedside Banks equation. It is less accurate in patients with extremes of muscle mass, restriction of dietary protein, ingestion of creatine, extra-renal metabolism of creatinine, or treatment with medications that affect renal tubular creatinine secretion. Performed By: #### B MP3, HEMDF, ETOH4, LFT3 #### [facility] [address] [place] [address] Chloride [Moles/Vol] 108 mmol/L High 98-107 [facility] Comment on above: Performed By: #### B MP3, HEMDF, ETOH4, LFT3 #### [facility] [address] [place] [address] Potassium [Moles/Vol] 3.6 mmol/L Normal 3.5-5.1 [facility] Comment on above: Performed By: #### B MP3, HEMDF, ETOH4, LFT3 #### [facility] [address] [place] [address] Sodium [Moles/Vol] 145 mmol/L Normal 135-145 [facility] Comment on above: Performed By: #### B MP3, HEMDF, ETOH4, LFT3 #### [facility] [address] [place] [address] Calcium [Mass/Vol] 9.2 mg/dL 8.4 - 10.4 mg/dL [facility] Comment on above: Performed By: #### B MP3, HEMDF, ETOH4, LFT3 #### [facility] [address] [place] [address] Glucose [Mass/Vol] 83 mg/dL 70 - 100 mg/dL [facility] Comment on above: Performed By: #### B MP3, HEMDF, ETOH4, LFT3 #### [facility] [address] [place] [address] Urea nitrogen [Mass/Vol] 7 mg/dL 7 - 20 mg/dL [facility] Comment on above: Performed By: #### B MP3, HEMDF, ETOH4, LFT3 #### [facility] [address] [place] [address] Anion gap [Moles/Vol] 11 mmol/L [place], [place] Chloride [Moles/Vol] 108 mmol/L High 98 - 107 mmol/L [place], [place] CO2 [Moles/Vol] 25 mmol/L 22 - 30 mmol/L [place] Creatinine [Mass/Vol] 0.65 mg/dL 0.52 - 1.25 mg/dL [place], [place] EGFR IF NonAfrican [place] Citizen >90.0 >60 mL/min [place] Comment on above: KDIGO guidelines pro vide the following GFR categories: Stage GFR(ml/min/1.73 m2) Terms G1 >=90 Normal or high G2 60-89 Mildly decreased* G3a 45-59 Mildly to moderately decreased G3b 30-44 Moderately to severely decreased G4 15-29 Severely decreased G5 <15 Kidney failure *Relative to young adult level. In the absence of evidence of kidney damage, neither GFR category G1 nor G2 fulfill the criteria for CKD. The CKD-EPI equation is validated in individuals 18 years of age and older. Currently the best equation for estimating glomerular filtration rate (GFR) from serum creatinine in children is the Bedside Banks equation. It is less accurate in patients with extremes of muscle mass, restriction of dietary protein, ingestion of creatine, extra-renal metabolism of creatinine, or treatment with medications that affect renal tubular creatinine secretion. GFR/1.73 sq M predicted among blacks MDRD (S/P/Bld) [Vol rate/Area] mL/min/{1.73_m2} >60 mL/min [place] Potassium [Moles/Vol] 3.6 mmol/L 3.5 - 5.1 mmol /L [place], [place] Sodium [Moles/Vol] 145 mmol/L 135 - 145 mmol/L [place] COVID-19on 10-05-2020 SARS-CoV-2 Not Detected. Not Detected [place] Comment on above: Not Detected. Expected Result: Not Detected _ Real-time, RT-PCR performed on the [employer] System by the [facility]. Negative results do not preclude SARS-CoV-2 infection and should not be used as the sole basis for treatment or other patient management decisions. This assay was developed by [employer] and distributed under an Emergency Use Authorization (EUA) granted by the FDA for the qualitative detection of SARS-CoV-2 nucleic acid. [facility], [address] [place] [address] Drugs of Abuseon 10-05-2020 Methadone, Ur Negative Normal [facility] Comment on above: Performed By: #### D SHRUTI, HCGKALEN #### [facility] [address] [place] [address] Phencyclidine (PCP), Ur Negative Normal [facility] Comment on above: Result Comment: The expected value for all of the drugs listed above is Negative. The following drugs or drug groups have been screened for by Immunoassay at the following thresholds: Amphetamine class (1000 ng/mL), Barbiturates (200 ng/mL), Benzodiazepines (200 ng/mL), Cocaine (300 ng/mL), Methadone (300 ng/mL), Opiates (300 ng/mL), Oxycodone (100 ng/mL), and PCP (25 ng/mL). NOTE: These results are for medical treatment only. Analysis performed using non-forensic procedures. POSITIVE results are NOT confirmed by a more specific alternative method unless requested. If confirmation is needed, request confirmation under separate order. Performed By: #### D RGA4, HCGUR #### [facility] [address] [place] [address] Cocaine, Ur Negative Normal [facility] Comment on above: Performed By: #### D RGA4, HCGUR #### [facility] [address] [place] [address] Amphetamines, Ur Negative Normal [facility] Comment on above: Performed By: #### D RGA4, HCGUR #### [facility] [address] [place] [address] Opiates, Ur Negative Normal [facility] Comment on above: Performed By: #### D RGA4, HCGUR #### [facility] [address] [place] [address] Benzodiazepines, Ur Negative Normal [facility] Comment on above: Performed By: #### D RGA4, HCGUR #### [facility] [address] [place] [address] Barbiturates, Ur Negative Normal [facility] Comment on above: Performed By: #### D RGA4, HCGUR #### [facility] [address] [place] [address] Oxycodone/Oxymorphine,U r Negative Normal [facility] Comment on above: Performed By: #### D RGA4, HCGUR #### [facility] [address] [place] [address] Ethanolon 10-05-2020 Ethanol Lvl >0.300 High 0 - 0.01 g/dL [place], [place] Comment on above: NOTE: This result is for medical treatment only. Analysis performed using non-forensic procedures. Interpretation and review of laboratory results Abnormal [place] Test Performed by [facility], [address] , [place], [place] [address] [place] [address] Ethanol Serum/Plasmaon 10-05 Ethanol-Serum/Plasma > 0.300 High 0.000-0.010 [facility] Comment on above: Result Comment: NOTE : This result is for medical treatment only. Analysis performed using non-forensic procedures. Performed By: #### B MP3, HEMDF, ETOH4, LFT3 #### [facility] [address] [place] [id number] HCG,Urine Qualon 10-05-2020 Beta HCG ( test) Ql (U) Negative Normal Negative [facility] Comment on above: Result Comment: Preg luis daniel is the most common reason for HCG in urine, although choriocarcinoma, hydatidiform mole, and certain nontropho- blastic malignancies also result in detectable urinary HCG levels. Sensitivity = 20mIU/mL. Performed By: #### D RGA4, HCGUR #### [facility] [address] [place] [address] HGC Urine Qual [place] 2019 Beta HCG ( test) Ql (U) Negative Negative NA [place] Comment on above: is the mos t common reason for HCG in urine, although choriocarcinoma, hydatidiform mole, and certain nontropho- blastic malignancies also result in detectable urinary HCG levels. Sensitivity = 20mIU/mL. Test Performed by [facility], [address] , [place], [place] [address] [place] Hemogram (CBC) w/Auto Diffon 10-05-2020 Absolute Baso # 0.1 10*3/uL 0 - 0.2 10*3/uL [place] Absolute Neut # 2.9 10*3/uL 1.8 - 7 10*3/uL [place] Basophils/100 WBC (Bld) 2.0 % 0 - 2 % [place] Eosinophils (Bld) [#/Vol] 0.2 10*3/uL 0 - 0.5 10*3/uL [place] Eosinophils/100 WBC (Bld) 2.7 % 1 - 6 % [place] Erythrocyte distribution width (RBC) [Ratio] 14.0 % 11.5 - 14.5 % [place] Granulocytes/100 WBC (Bld) 50.4 % 40 - 80 % [place] Hematocrit (Bld) [Volume fraction] 44.0 % 35 - 47 % [place] Hemoglobin (Bld) [Mass/Vol] 14.8 g/dL 11.7 - 16 g/dL [place] Interpretation and review of laboratory results Abnormal [place] Lymphocytes (Bld) [#/Vol] 1.8 10*3/uL 1 - 4.3 10*3/uL [place] Lymphocytes/100 WBC (Bld) 32.0 % 20 - 40 % [place] MCH (RBC) [Entitic mass] 29.9 pg 26 - 34 pg [place] MCHC (RBC) [Mass/Vol] 33.6 % 32 - 36 % [place] MCV (RBC) [Entitic vol] 88.9 fL 79 - 98 fL [place], [place] Monocytes (Bld) [#/Vol] 0.7 10*3/uL 0 - 0.8 10* 3/uL [place] Monocytes/100 WBC (Bld) 12.9 % High 2 - 10 % [place] Platelet mean volume (Bld) [Entitic vol] 9.1 fL 7.4 - 10.4 fL [place] Platelets (Bld) [#/Vol] 195 10*3/uL 140 - 440 10*3/uL [place] RBC (Bld) [#/Vol] 4.95 10*6/uL 3.8 - 5.2 10*6/uL [place] WBC (Bld) [#/Vol] 5.8 10*3/uL 3.6 - 10.7 10*3/uL [place] Test Performed by [facility], [address] , [address] Hemogram w/ Autodiffon 10-05 Abs Baso Cnt 0.1 10*3/uL Normal 0.0-0.2 [facility] Comment on above: Performed By: #### B MP3, HEMDF, ETOH4, LFT3 #### [facility] [address] [place] [address] Abs Neutrophile Cnt 2.9 10*3/uL Normal 1.8-7.0 [facility] Comment on above: Performed By: #### B MP3, HEMDF, ETOH4, LFT3 #### [facility] [address] [place] [address] Basophils/100 WBC (Bld) 2.0 % Normal 0.0-2.0 [facility] Comment on above: Performed By: #### B MP3, HEMDF, ETOH4, LFT3 #### [facility] [address] [place] [address] Eosinophils (Bld) [#/Vol] 0.2 10*3/uL Normal 0.0-0.5 [facility] Comment on above: Performed By: #### B MP3, HEMDF, ETOH4, LFT3 #### [facility] [address] [place] [address] Eosinophils/100 WBC (Bld) 2.7 % Normal 1.0-6.0 [facility] Comment on above: Performed By: #### B MP3, HEMDF, ETOH4, LFT3 #### [facility] [address] [place] [address] Erythrocyte distribution width (RBC) [Ratio] 14.0 % Normal 11.5-14.5 [facility] Comment on above: Performed By: #### B MP3, HEMDF, ETOH4, LFT3 #### [facility] [address] [place] [address] Granulocytes/100 WBC (Bld) 50.4 % Normal 40.0-80.0 [facility] Comment on above: Performed By: #### B MP3, HEMDF, ETOH4, LFT3 #### [facility] [address] [place] [address] Hematocrit (Bld) [Volume fraction] 44.0 % Normal 35.0-47.0 [facility] Comment on above: Performed By: #### B MP3, HEMDF, ETOH4, LFT3 #### [facility] [address] [place] [address] Hemoglobin (Bld) [Mass/Vol] 14.8 g/dL Normal 11.7-16.0 [facility] Comment on above: Performed By: #### B MP3, HEMDF, ETOH4, LFT3 #### [facility] [address] [place] [address] Lymphocytes (Bld) [#/Vol] 1.8 10*3/uL Normal 1.0-4.3 [facility] Comment on above: Performed By: #### B MP3, HEMDF, ETOH4, LFT3 #### [facility] [facility] [address] [place] [address] Lymphocytes/100 WBC (Bld) 32.0 % Normal 20.0-40.0 [facility] Comment on above: Performed By: #### B MP3, HEMDF, ETOH4, LFT3 #### [facility] [address] [place] [address] MCH (RBC) [Entitic mass] 29.9 pg Normal 26.0-34.0 [facility] Comment on above: Performed By: #### B MP3, HEMDF, ETOH4, LFT3 #### [facility] [address] [place] [address] MCHC (RBC) [Mass/Vol] 33.6 % Normal 32.0-36.0 [facility] Comment on above: Performed By: #### B MP3, HEMDF, ETOH4, LFT3 #### [facility] [address] [place] [address] MCV (RBC) [Entitic vol] 88.9 fL Normal 79.0-98.0 S [facility] Comment on above: Performed By: #### B MP3, HEMDF, ETOH4, LFT3 #### [facility] [address] [place] [address] Monocytes (Bld) [#/Vol] 0.7 10*3/uL Normal 0.0-0.8 [facility] Comment on above: Performed By: #### B MP3, HEMDF, ETOH4, LFT3 #### [facility] [address] [place] [address] Monocytes/100 WBC (Bld) 12.9 % High 2.0-10.0 S [facility] Comment on above: Performed By: #### B MP3, HEMDF, ETOH4, LFT3 #### [facility] [address] [place] [address] Platelet mean volume (Bld) [Entitic vol] 9.1 fL Normal 7.4-10.4 [facility] Comment on above: Performed By: #### B MP3, HEMDF, ETOH4, LFT3 #### [facility] [address] [place] [address] Platelets (Bld) [#/Vol] 195 10*3/uL Normal 140-440 [facility] Comment on above: Performed By: #### B MP3, HEMDF, ETOH4, LFT3 #### [facility] [address] [place] [address] RBC (Bld) [#/Vol] 4.95 10*6/uL Normal 3.80-5.20 [facility] Comment on above: Performed By: #### B MP3, HEMDF, ETOH4, LFT3 #### [facility] [address] [place] [address] WBC (Bld) [#/Vol] 5.8 10*3/uL Normal 3.6-10.7 [facility] Comment on above: Performed By: #### B MP3, HEMDF, ETOH4, LFT3 #### [facility] [address] [place] [address] Hepatic Functionon 0 Bilirubin [Mass/Vol] 0.2 mg/dL Normal 0.2-1.3 [facility] Comment on above: Performed By: #### B MP3, HEMDF, ETOH4, LFT3 #### [facility] [address] [place] [address] Bilirubin.direct [Mass/Vol] 0.0 mg/dL Normal 0.0-0.3 [facility] Comment on above: Performed By: #### B MP3, HEMDF, ETOH4, LFT3 #### [facility] [address] [place] [address] Protein [Mass/Vol] 7.7 g/dL Normal 6.3-8.2 [facility] Comment on above: Performed By: #### B MP3, HEMDF, ETOH4, LFT3 #### [facility] [address] [place] [address] Albumin [Mass/Vol] 4.8 g/dL Normal 3.5-5.0 [facility] Comment on above: Performed By: #### B MP3, HEMDF, ETOH4, LFT3 #### [facility] [address] [place] [address] ALP [Catalytic activity/Vol] 63 U/L 38 - 126 U/L [facility] Comment on above: Performed By: #### B MP3, HEMDF, ETOH4, LFT3 #### [facility] [address] [place] [address] ALT [Catalytic activity/Vol] 143 U/L High 0 - 34 U/L [facility] Comment on above: Result Comment: The ALT test is performed by an updated assay method. Please note that the reference intervals have been changed and are now sex specific. Performed By: #### B MP3, HEMDF, ETOH4, LFT3 #### [facility] [address] [place] [address] The ALT test is perf ormed by an updated assay method. Please note that the reference intervals have been changed and are now sex specific. AST [Catalytic activity/Vol] 160 U/L High 15 - 46 U/L [facility] Comment on above: Performed By: #### B MP3, HEMDF, ETOH4, LFT3 #### [facility] [address] [place] [address] Hepatic Function Panelon Albumin [Mass/Vol] 4.8 g/dL 3.5 - 5 g/dL [place], [place] Bilirubin Ql (U) 0.2 mg/dL 0.2 - 1.3 mg/dL [place], [place] Bilirubin.direct [Mass/Vol] 0.0 mg/dL 0 - 0.3 mg/dL [place], [place] Protein [Mass/Vol] 7.7 g/dL 6.3 - 8.2 g/dL [place], [place] Otheron 10-05-2020 Interpretation and review of laboratory results Abnormal [place], [place] Test Performed by [facility], [address] , [address] Urine Drug Screenon 10-05-20 20 Amphetamines, urine Negative [facility] [place], [place] Barbiturates, Ur Negative [facility] [place] Benzodiazepine Ur Qual Negative Me [facility], [place] Cocaine Metabolites, Ur Negative [facility], [place] Methadone, Urine Negative [facility] [place] Opiates, Urine Negative [facility] [place], [place] Oxycodone Screen, Ur Negative [facility], [place] PCP, Urine Negative [facility] [place] Comment on above: The expected value f or all of the drugs listed above is Negative. The following drugs or drug groups have been screened for by Immunoassay at the following thresholds: Amphetamine class (1000 ng/mL), Barbiturates (200 ng/mL), Benzodiazepines (200 ng/mL), Cocaine (300 ng/mL), Methadone (300 ng/mL), Opiates (300 ng/mL), Oxycodone (100 ng/mL), and PCP (25 ng/mL). NOTE: These results are for medical treatment only. Analysis performed using non-forensic procedures. POSITIVE results are NOT confirmed by a more specific alternative method unless requested. If confirmation is needed, request confirmation under separate order. [facility], [address] , [address] ED Pat Eduon 12-18-2019 ED Pat [place] [id number] Emergency Department Discharge Instructions ERICA TORO, Please provide this information to your Primary Care/Specialist Name: ERICA TORO Current Date : 12/18/2019 03:07:10 : 1995 Primary Care Physician: Physician, PCP Unknown Diagnosis : Follow-Up Instructions: ERICA TORO has been given these follow-up instructions: Laboratory [...] de los Servicios de Emergencia Name ERICA TORO MRN [facility]-[id number] Acct# PLEASE READ THE FOLLOWING REGARDING YOUR MEDICATIONS Based on the information available during your visit we have given you the medication instructions below. Continue taking medications you took prior to your visit unless you have been told to change. Please share this information with your own doctor. Carry a list of your medications with you in case of an emergency. Update it when medications are stopped, doses are changed, or new medications (including jpma-rwy-jmjkdoj products) are added. If you have any questions, check with your doctor. Por la informaci??n disponible talisha dunaway visita, las instrucciones de medicaci??n aparecen debajo. Favor de continuar tomando las medicaciones Ud. jamia?? antes de dunaway visita por lo menos que hay cambios. Favor de compartir esta informaci??n con dunaway medico. Lleva katie lista de medicaciones consigo por pepe de emergenc??a. Actualiza la lista cuando Ud. robbi de zenon las medicaciones, si cambian las dosis, o si hay nuevas medicaciones a??adidas (incluyendo medicaciones vendidas sin prescripci??n). Favor de preguntar a dunaway medico por cualquier jimbo. THESE ARE THE MEDICATIONS YOU SHOULD BE TAKING ClonazePAM (clonazePAM 0.5 mg oral tablet) 1 Tab(s) By Mouth Twice a day as needed Anxiety. HydrOXYzine (hydrOXYzine pamoate 25 mg oral capsule) 1 Capsule By Mouth Twice a day as needed as needed for anxiety. prazosin (prazosin 1 mg oral capsule) 1 Capsule By Mouth Bedtime. QUEtiapine (QUEtiapine 25 mg oral tablet) 1 Tab(s) By Mouth Twice a day. venlafaxine (venlafaxine 150 mg oral capsule, extended release) 1 Capsule By Mouth once a day. MEDICATIONS GIVEN DURING MEDICAL VISIT EPINEPHrine/lidocain e/tetracaine topical 1 Appl last dose given on 12/17/2019 at 06:19 Route: Topical lorazepam 1 mg last dose given on 12/17/2019 at 10:10 Route: By Mouth lidocaine 10 mg last dose given on 12/17/2019 at 10:11 Route: Miscellaneous-See Comment Total Volume = 100 mL Sodium Chloride 0.9% 100 mL last dose given on 12/17/2019 at 10:11 Route: Miscellaneous-See Comment ibuprofen 600 mg last dose given on 12/17/2019 at 17:03 Route: By Mouth Maximum of 3200 mg / 24 hr acetaminophen 975 mg last dose given on 12/17/2019 at 17:03 Route: By Mouth Maximum 4 Gm Acetaminophen/Day for Adults prazosin 1 mg last dose given on 12/17/2019 at 21:50 Route: By Mouth May Cause Orthostatic Hypotension quetiapine 25 mg last dose given on 12/17/2019 at 21:50 Route: By Mouth TUBE 26 - ED10 pls thanks venlafaxine 150 mg last dose given on 12/17/2019 at 21:50 Route: By Mouth TUBE 26- ED10 pls thanks NON-MEDICATION PRESCRIPTION SCHEDULING PHONE NUMBER: MEDICATION CHANGE DETAILS (Not your Final Home Medication List) During the course of your visit, your home medication list was updated with the most current information. The details of those changes are shown below: NEW MEDICATIONS None UPDATED MEDICATIONS Other Medications Start: ClonazePAM (clonazePAM 0.5 mg oral tablet) 1 Tab(s) By Mouth Twice a day as needed Anxiety. Comment Start: prazosin (prazosin 1 mg oral capsule) 1 Capsule By Mouth Bedtime. Comment Start: QUEtiapine (QUEtiapine 25 mg oral tablet) 1 Tab(s) By Mouth Twice a day. Comment Start: venlafaxine (venlafaxine 150 mg oral capsule, extended release) 1 Capsule By Mouth once a day. Comment UNCHANGED MEDICATIONS Other Medications HydrOXYzine (hydrOXYzine pamoate 25 mg oral capsule) 1 Capsule By Mouth Twice a day as needed as needed for anxiety. Comment STOP TAKING THESE MEDICATIONS None DO NOT TAKE UNTIL YOU TALK TO YOUR DOCTOR None [place] [id number] Emergency Department Discharge Instructions Name: ERICA TORO Current Date:12/18/2019 03:07:10 :1995 Primary Physician:Physician, PCP Unknown We would like to thank you for choosing [facility] for your emergency medical needs. We examined and treated you today on an emergency basis only. This was not a substitute for, or an effort to provide, complete medical care. In most cases, you must let your doctor (or the doctor we referred you to) check you again. Tell your doctor about any new or lasting problems. We cannot recognize and treat all injuries or illnesses in one emergency department visit. [...] any changes in your instructions. It is important that you leave accurate information with us on how to contact you. IF you cannot be contacted, YOU must contact the follow-up doctor that you were assigned to make sure that the final official x-ray report does not require a change in your treatment. Instructions for obtaining medical records: If you need a copy of your medical records for follow-up, please contact the Health Information Management Department at . Their office hours are 8 AM- 4:30 PM, Mata through Wednesday. Please note: Results are not immediately available. Please allow a minimum of 36 hours for documentation and results. If you were prescribed an antibiotic: Antibiotics are life-saving drugs and they need to be used properly. Your team might change your antibiotic because test results show that a different antibiotic would be better to treat your infection. Like all medications, antibiotics have side effects. Some can be serious. This includes the risk of getting an antibiotic-resistant infection later, which may be difficult to treat. Remember to take your antibiotics as prescribed. If you have any questions please talk to your healthcare team. Seatbelts: There is no doubt that seatbelts save lives. Every day, people without seatbelts have more serious injuries. Have everyone buckle up, using age appropriate seatbelts or car seats, to reduce their risk of injury. Smoking: If you do smoke, we encourage you to stop. Smoking affects all aspects of your health and the health of those around you. Call the [place] [employer] at 2-517-TZAC-[place] or the [place] [employer] at 3-627-HUU-5789 for more information. High blood pressure: Your screening blood pressure today was 122 mm Hg / 87 mm Hg. Hypertension (high blood pressure) is blood pressure over 120/80. People with hypertension should contact their primary care provider within 30 days to follow up. Check your patient portal for additional blood pressure information. Immunizations: Immunization is a way to protect against deadly infections. Discuss this with your child's surveyor geophysical prospecting, or Public Health Department. Your family practice doctor can determine if you need pneumonia or flu vaccine. The [facility] Department can be reached at . Substance Abuse Program: Concerns with addiction to alcohol, benzodiazepines (Ativan or Xanax) and Opiates (Heroin, Percocet, OxyContin, Methadone or Fentanyl)? [facility] offers an inpatient Substance Abuse Program to help treat the symptoms associated with medical detoxification of addictive substances. The new program offers care for non- adults (18 and older) looking to break the chain to addictive chemicals. The Substance Abuse Program is a voluntary inpatient admission and it starts with a pre-screening phone call to a social services director. During the call, goals and objectives for recovery and how the patient will transition to outpatient care will be established. Please call [phone] to get help today. Domestic Violence: If you are a victim of domestic violence (physical, verbal, or emotional), you are not alone. Discuss this with your physician or a friend and call Choices Hotline ( for assistance and support. You are the most important factor in your recovery. Follow the provided instructions carefully. Take your medications as prescribed. Most importantly, see a doctor again as discussed. If you have problems that we have not discussed, call or visit your doctor right away. If you do not have a primary care physician, we have provided one for you to follow up with. When you call for an appointment, please inform them that you were seen in the emergency department and the date of your visit. If you are unable to reach your doctor and are still experiencing problems, return to the emergency department. For assistance finding a primary care physician, call the Physician Referral Line at . Suicide Hotline: Your mental and emotional well-being is important. If you are in a mental health crisis or are having thoughts of suicide, please call the nationwide suicide hotline, anytime day or night, at 0-961-507-GRUY. Pharmacy Information: Below is a list of 24 hour pharmacies that we are aware of. We suggest that you call the specific pharmacy for their hours before traveling to a location. Hours may vary on holidays. [facility] [place] [id number] [place], [place] [phone] [address] [place], [place] [address] [phone] [address] [place], [place] [address] [phone] [address] [place], [place] [phone] [address] [place], [place] [phone] [address] [place], [place] [phone] [place] [address] [phone] Take all medications as directed. If you need prescription assistance, contact the following agencies: ?? Partnership for Prescription Assistance at or www.pparx.org ?? [place] [facility] at or www.iGuidersbestrx.org ?? www.[employer] is a site with many valuable coupons Patient Education Materials ERICA TORO has been given the following patient education materials: <><><><><><><><><><> <><><><><><><><><><> <><><><><> Patient Visit Summary Signature ERICA TORO has been given the following list of patient education materials, prescriptions and follow-up instructions: I, ERICA TORO, have received the above patient education materials/instructio ns and have verbalized understanding: Date Time Patient Signature Date Time Provider Signature Normal [facility] Acetaminophen (Tylenol) Leve amy 12-17-2019 Acetaminophen [Mass/Vol] <10 Normal 10.0-30.0 [facility] Comment on above: Performed By: #### 6 9405-9, 93941-4a9, 79444-4, 41457-3, 07046-8, 76564-0, 2110-02, #### [facility], [address] [place], [place]. Alcohol (Ethanol) Levelon Ethanol [Mass/Vol] 0.20 gm/dL High 0.00-0.00 [facility] Comment on above: Performed By: #### 6 9405-9, 44994-1m7, 45916-0, 34205-5, 31762-7, 67626-9, 2110-02, #### [facility], [address] [place], [place]. CBC with Differentialon 11-26 Basophils (Bld) [#/Vol] 0.00 thou/mcL Normal 0.00-0.20 [facility] Comment on above: Performed By: #### 5 7021-8 #### [facility], [address], [place]. Basophils/100 WBC (Bld) 0.7 % Normal 0.0-2.0 [facility] Comment on above: Performed By: #### 5 7021-8 #### [facility], [address], [place]. Eosinophils (Bld) [#/Vol] 0.20 thou/mcL Normal 0.00-0.70 [facility] Comment on above: Performed By: #### 5 7021-8 #### [facility], [facility]. Eosinophils/100 WBC (Bld) 3.8 % Normal 0.0-7.0 [facility] Comment on above: Performed By: #### 5 7021-8 #### [facility], [facility] [place]. Erythrocyte distribution width (RBC) [Entitic vol] 14.8 % Normal 11.0-14.8 [facility] Comment on above: Performed By: #### 5 7021-8 #### [facility], [address], [place]. Hematocrit (Bld) [Volume fraction] 44.2 % Normal 35.0-45.0 [facility] Comment on above: Performed By: #### 5 7021-8 #### [facility], [address], [place]. Hemoglobin (Bld) [Mass/Vol] 14.7 g/dL Normal 12.0-16.0 [facility] Comment on above: Performed By: #### 5 7021-8 #### [facility], [address] [place], [place]. Lymphocytes (Bld) [#/Vol] 1.80 thou/mcL Normal 1.00-4.80 [facility] Comment on above: Performed By: #### 5 7021-8 #### [facility], [facility] [place], [place]. Lymphocytes/100 WBC (Bld) 43.7 % Normal 22.0-44.0 [facility] Comment on above: Performed By: #### 70-8 #### [facility], [facility] [place], [place]. MCH (RBC) [Entitic mass] 29.8 Picograms Normal 27.0-34.0 [facility] Comment on above: Performed By: #### 70-8 #### [facility], [facility] [place], [place]. MCHC (RBC) [Mass/Vol] 33.3 g/dL Normal 32.0-36.0 [facility] Comment on above: Performed By: #### 70-8 #### [facility], [address] [place] [address]. MCV (RBC) [Entitic vol] 89.5 fL Normal 80.0-97.0 M [facility] Comment on above: Performed By: #### 70-8 #### [facility], [facility] [place], [place]. Monocytes (Bld) [#/Vol] 0.30 thou/mcL Normal 0.00-0.90 [facility] Comment on above: Performed By: #### 70-8 #### [facility], [facility] [place]. Monocytes/100 WBC (Bld) 7.4 % Normal 0.0-12.0 M [facility] Comment on above: Performed By: #### 70-8 #### [facility], [address] [place], [place]. Neutrophils (Bld) [#/Vol] 1.80 thou/mcL Normal 1.80-7.70 [facility] Comment on above: Performed By: #### 5 7021-8 #### [facility], [address] [place], [place]. Neutrophils/100 WBC (Bld) 44.4 % Normal 40.0-70.0 [facility] Comment on above: Performed By: #### 7021-8 #### [facility], [address] [place], [place]. Platelet mean volume (Bld) [Entitic vol] 8.8 fL Normal 6.2-12.1 [facility] Comment on above: Performed By: #### 5 7021-8 #### [facility], [address] [place], [place]. Platelets (Bld) [#/Vol] 167 thou/mcL Normal 142-424 [facility] Comment on above: Performed By: #### 5 7021-8 #### [facility], [address] [place], [place]. RBC (Bld) [#/Vol] 4.94 million/mcL Normal 3.80-5.10 [facility] Comment on above: Performed By: #### 5 7021-8 #### [facility], [address] [place], [place]. WBC (Bld) [#/Vol] 4.1 thou/mcL Low 4.6-10.2 [facility] Comment on above: Performed By: #### 5 7021-8 #### [facility], [address] [place], [place]. Comprehensive Metabolic Pane may 12-17-2019 Albumin [Mass/Vol] 4.0 g/dL Normal 3.5-4.8 [facility] Comment on above: Performed By: #### 6 9405-9, 57610-7z4, 28140-4, 44533-4, 89622-2, 27426-9, 0-5, 65222-1 #### [facility], [address] [place], [place]. ALP [Catalytic activity/Vol] 62 Units/L Normal 32-91 [facility] Comment on above: Performed By: #### 6 9405-9, 71215-2f6, 13944-9, 19347-9, 85630-6, 59947-5, 0-5, 87318-7 #### [facility], [address], [place]. ALT [Catalytic activity/Vol] 22 Units/L Normal 14-63 [facility] Comment on above: Performed By: #### 6 9405-9, 84733-5v9, 87374-2, 42504-8, 62454-1, 95284-2, 0-5, 39024-2 #### [facility], [address] [place], [place]. Anion gap [Moles/Vol] 10.0 mmol/L Normal 6.0-18.[address] [facility] Comment on above: Performed By: #### 6 9405-9, 87756-2b0, 11975-0, 66418-6, 22709-5, 45271-5, 0-5, 76196-2 #### [facility], [address] [place], [place]. AST [Catalytic activity/Vol] 31 Units/L Normal 15-41 [facility] Comment on above: Performed By: #### 6 9405-9, 77377-9b9, 71701-8, 54941-2, 38762-5, 19926-9, 0-5, 63867-3 #### [facility], [address] [place], [place]. Bilirubin [Mass/Vol] 0.3 mg/dL Normal 0.3-1.2 [facility] Comment on above: Performed By: #### 6 9405-9, 84472-3c8, 89323-4, 94907-5, 98424-2, 91251-8, 0-5, 41773-5 #### [facility], [address]. Calcium [Mass/Vol] 8.6 mg/dL Low 8.9-10.3 [facility] Comment on above: Performed By: #### 6 9405-9, 30868-6j9, 47948-5, 99086-8, 42482-0, 12259-0, 0-5, 25608-9 #### [facility], [address] [facility] [address], [place]. Chloride [Moles/Vol] 112 mmol/L High 98-107 [facility] Comment on above: Performed By: #### 6 9405-9, 65416-7q2, 46770-3, 02199-5, 58350-6, 61875-0, 0-5, 95396-5 #### [facility], [address] [facility]. CO2 [Moles/Vol] 23 mmol/L Normal 22-32 [facility] Comment on above: Performed By: #### 6 9405-9, 46695-4u7, 94257-7, 99274-9, 62706-3, 30575-5, 2109-5, 23105-5 #### [facility], [address] [place], [place]. Creatinine [Mass/Vol] 0.61 mg/dL Low 0.66-1.30 [facility] Comment on above: Performed By: #### 6 9405-9, 61362-0b0, 58328-5, 29056-2, 65001-7, 07774-6, 0-5, 53608-2 #### [facility], [address], [place]. Glucose [Mass/Vol] 88 mg/dL Normal 70-99 [facility] Comment on above: Result Comment: U pdated ADA Reference Range A normal fasting glucose concentration is less than 100 mg/dL. An impaired fasting glucose concentration is 100-125 mg/dL. A provisional diagnosis of diabetes mellitus can be made when a fasting glucose concentration is greater than 125 mg/dL. Performed By: #### 6 9405-9, 51925-0r4, 32859-7, 92161-4, 23475-8, 04431-2, 0-5, 11950-6 #### [facility], [address] [place], [place]. Potassium [Moles/Vol] 3.5 mmol/L Low 3.6-5.1 [facility] Comment on above: Performed By: #### 6 9405-9, 49192-4f4, 38157-0, 15926-5, 87685-7, 70223-6, 0-, #### [facility], [address] [place], [place]. Protein [Mass/Vol] 6.8 g/dL Normal 6.1-7.9 [facility] Comment on above: Performed By: #### 6 9405-9,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 fluid but endorses mild amount throughout the night. Denies leaking now. Good movement. Denies vaginal bleeding., Denies contractions.. PAST MEDICAL HISTORY Diagnosis Date - Anemia - Anxiety disorder - Atypical squamous cell changes of undetermined significance (ASCUS) on cervical cytology with positive high risk human papilloma virus (HPV) 11/12/2017 [...] CARDIOVASCULAR: Negative for chest pain, leg swelling, hypertension, CHF or palpitations GI: No nausea, vomiting, or diarrhea : No history of dysuria, frequency or incontinence 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: Negative for abnormal vaginal bleeding, endorses leakage of white and clear fluid in small amounts Objective LAST VITALS: Pulse BP Resp O2 Sat Temp 81 116/76 16 96 % 36.4 ?C (97.5 ?F) Pain Score Trend (last 4 values) 08/19/19 1110 Pain Level: 0 HT/WT/BMI: Height Weight BMI 170.2 cm (5' 7") 77.1 kg (170 lb) 26.63 PHYSICAL EXAM: General: WD, WN Lungs: clear to auscultation Abdomen: soft, nontender, no masses Cervical Exam: Pt [address] Beckwith CERVICAL EXAM: Dilation: 2 (08/19/19 1200 : Maddi (Res) Amena) cm Station: -2 (08/19/19 1200 : Maddi Beckwith) Effacement: 70 (08/19/19 1200 : Maddi Beckwith) % Presentation: MONITORING/ASSESSMEN T: Non-stress test pending Ultrasound: MADISON [address] Beckwith LABS Diagnostic tests reviewed for today's visit: Most recent labs and imaging results. Active Hospital Problems Diagnosis [...] ? I personally saw/examined the patient on 08/19/19 I saw and evaluated the patient. Discussed with the resident and agree with resident's findings and plan as documented in the resident's note. . Dario Gil MD SIGNATURE: Tin Ghosh DO PATIENT NAME: Erica Toro DATE: August 19, 2019 TIME: 12:02 PM PAGER/CONTACT #: [phone] Normal [facility] Basic Metabolic Panelon 11-2 Anion gap 3 molar conc 11 mmol/L Normal 7-13 Me [facility] Calcium mass conc 9.3 mg/dL Normal 8.6-10.2 [facility] Chloride molar conc 103 mmol/L Normal 98-107 [facility] CO2 molar conc 25 mmol/L Normal 22-29 [facility] Creatinine mass conc 0.61 mg/dL Normal 0.50-0.90 [facility] GFR/1.73 sq M predicted among blacks MDRD vol rate/area (S/P/Bld) mL/min/{1.73_m2} Normal >60 [facility] Comment on above: Result Comment: >60 mL/min/1.73m2 EGFR, calc. for ages 18 and older using theMDRD formula (not corrected for weight), is valid for stablerenal function. GFR/1.73 sq M.predicted MDRD vol rate/area mL/min/{1.73_m2} Normal >60 [facility] Comment on above: Result Comment: >60 mL/min/1.73m2 EGFR, calc. for ages 18 and older using theMDRD formula (not corrected for weight), is valid for stablerenal function. Glucose mass conc 84 mg/dL Normal 74-109 [facility] Potassium molar conc 4.8 mmol/L Normal 3.5-5.1 [facility] Sodium molar conc 139 mmol/L Normal 132-144 [facility] Urea nitrogen mass conc 14 mg/dL Normal 6-[address] [facility] TSH w/out Reflexon 8 Thyrotropin Qn 1.090 uIU/mL Normal 0.270-4.20 [facility] VITAMIN Don 09-22-2018 VITAMIN D 22.7 ng/mL Low 30.0-100.0 [facility] Comment on above: Result Comment: (20- 30 ng/mL) InsufficiencyThis assay accurately quantifies the sum of vitamin D3, 25-Hydroxy andvitamin D2, 25-Hyroxy. TSH w/out Reflexon 8 Thyrotropin Qn 0.514 uIU/mL Normal 0.270-4.20 [facility] VITAMIN Don 09-05-2018 VITAMIN D 24.4 ng/mL Low 30.0-100.0 [facility] Comment on above: Result Comment: (20- 30 ng/mL) InsufficiencyThis assay accurately quantifies the sum of vitamin D3, 25-Hydroxy andvitamin D2, 25-Hyroxy. Vital Signs Date Time Vital Sign Value Performing Clinician Facility 01-18-2024 08:22-0400 Body temperature 98.6 [degF] Lakeisha Fortune APRN.RESIDENTIAL HOUSEKEEPER Work Phone: [facility] 01-18-2024 08:22-0400 Body weight 70 kg Lakeisha Fortune APRN.CNP Work Phone: [facility] 01-18-2024 08:22-0400 Diastolic blood pressure 86 mm[Hg] Lakeisha Fortune APRN.CNP Work Phone: [facility] 01-18-2024 08:22-0400 Heart rate 97 /min Lakeisha Fortune APRN.CNP Work Phone: [facility] 01-18-2024 08:22-0400 Respiratory rate 16 /min Lakeisha Fortune ASSEMBLY LINE BRAZER.RESIDENTIAL HOUSEKEEPER Work Phone: [facility] 01-18-2024 08:22-0400 SaO2% (BldA) [Mass fraction] 96 % Lakeisha Fortune ASSEMBLY LINE BRAZER.RESIDENTIAL HOUSEKEEPER Work Phone: [facility] 01-18-2024 08:22-0400 Systolic blood pressure 125 mm[Hg] Lakeisha Fortune ASSEMBLY LINE BRAZER.RESIDENTIAL HOUSEKEEPER Work Phone: [facility] 10-07-2023 16:23-0500 Body temperature 97.9 [degF] [facility] 10-07-2023 16:23-0500 Diastolic blood pressure 70 mm[Hg] [facility] 10-07-2023 16:23-0500 Heart rate 73 /min [facility] 10-07-2023 16:23-0500 Respiratory rate 16 /min [facility] 10-07-2023 16:23-0500 SaO2% (BldA) [Mass fraction] 95 % [facility] 10-07-2023 16:23-0500 Systolic blood pressure 110 mm[Hg] [facility] 10-06-2023 10:51-0500 Body height 170.18 cm [facility] 10-06-2023 10:51-0500 Body mass index (BMI) [Ratio] 28.5 kg/m2 [facility] 10-06-2023 10:51-0500 Body weight 82.55 kg [facility] 10-05-2023 13:58-0500 Body weight 82.56 kg Krystian Valencia MD Work Phone: [facility] 10-05-2023 13:58-0500 Diastolic blood pressure 74 mm[Hg] Krystian Valencia MD Work Phone: [facility] 10-05-2023 13:58-0500 Systolic blood pressure 118 mm[Hg] Krystian Valencia MD Work Phone: [facility] 09-27-2023 11:17-0500 Body weight 82.56 kg Gracy Ross MD Work Phone: [facility] 09-27-2023 11:17-0500 Diastolic blood pressure 60 mm[Hg] Gracy Ross MD Work Phone: [facility] 09-27-2023 11:17-0500 Systolic blood pressure 100 mm[Hg] Gracy Ross MD Work Phone: [facility] 09-20-2023 14:19-0500 Body weight 83.01 kg Maritza Richard ASSEMBLY LINE BRAZER.CNM Work Phone: [facility] 09-20-2023 14:19-0500 Diastolic blood pressure 62 mm[Hg] Maritza Richard ASSEMBLY LINE BRAZER.CNM Work Phone: [facility] 09-20-2023 14:19-0500 Systolic blood pressure 112 mm[Hg] Maritza Richard ASSEMBLY LINE BRAZER.CNM Work Phone: [facility] 09-20-2023 13:35-0500 Body weight 83.01 kg Ob Ultrasound Work Phone: [facility] 09-13-2023 11:23-0500 Body weight 82.28 kg Dulce Venango ASSEMBLY LINE BRAZER.RESIDENTIAL HOUSEKEEPER Work Phone: [facility] 09-13-2023 11:23-0500 Diastolic blood pressure 80 mm[Hg] Dulce Venango ASSEMBLY LINE BRAZER.RESIDENTIAL HOUSEKEEPER Work Phone: [facility] 09-13-2023 11:23-0500 Systolic blood pressure 120 mm[Hg] Dulce Shiva ASSEMBLY LINE BRAZER.RESIDENTIAL HOUSEKEEPER Work Phone: [facility] 09-01-2023 14:14-0500 Body weight 85.46 kg Lon Haury ASSEMBLY LINE BRAZER.RESIDENTIAL HOUSEKEEPER Work Phone: [facility] 09-01-2023 14:14-0500 Diastolic blood pressure 72 mm[Hg] Lon Haury ASSEMBLY LINE BRAZER.RESIDENTIAL HOUSEKEEPER Work Phone: [facility] 09-01-2023 14:14-0500 Systolic blood pressure 114 mm[Hg] Lon Haury ASSEMBLY LINE BRAZER.RESIDENTIAL HOUSEKEEPER Work Phone: [facility] 08-18-2023 10:27-0400 Body weight 81.65 kg Cortney Plotts ASSEMBLY LINE BRAZER.CNM Work Phone: [facility] 08-18-2023 10:27-0400 Diastolic blood pressure 72 mm[Hg] Cortney Plotts ASSEMBLY LINE BRAZER.CNM Work Phone: [facility] 08-18-2023 10:27-0400 Systolic blood pressure 120 mm[Hg] Cortney Plotts ASSEMBLY LINE BRAZER.CNM Work Phone: [facility] 07-12-2023 13:18-0400 Body weight 80.83 kg Gracy Ross MD Work Phone: [facility] 07-12-2023 13:18-0400 Diastolic blood pressure 80 mm[Hg] Gracy Ross MD Work Phone: [facility] 07-12-2023 13:18-0400 Systolic blood pressure 120 mm[Hg] Gracy Ross MD Work Phone: [facility] 06-23-2023 14:35-0400 Body weight 81.19 kg Cortney Plotts ASSEMBLY LINE BRAZER.CNM Work Phone: [facility] 06-23-2023 14:35-0400 Diastolic blood pressure 70 mm[Hg] Cortney Plotts ASSEMBLY LINE BRAZER.CNM Work Phone: [facility] 06-23-2023 14:35-0400 Systolic blood pressure 110 mm[Hg] Cortney Plotts ASSEMBLY LINE BRAZER.CNM Work Phone: [facility] 05-26-2023 13:54-0400 Body weight 77.11 kg Gracy Ross MD Work Phone: [facility] 05-26-2023 13:54-0400 Diastolic blood pressure 64 mm[Hg] Gracy Ross MD Work Phone: [facility] 05-26-2023 13:54-0400 Systolic blood pressure 108 mm[Hg] Gracy Ross MD Work Phone: [facility] 04-21-2023 15:30-0400 Body weight 73.94 kg Maritza Richard ASSEMBLY LINE BRAZER.CNM Work Phone: [facility] 04-21-2023 15:30-0400 Diastolic blood pressure 60 mm[Hg] Maritza Richard ASSEMBLY LINE BRAZER.CNM Work Phone: [facility] 04-21-2023 15:30-0400 Systolic blood pressure 106 mm[Hg] Maritza Richard ASSEMBLY LINE BRAZER.CNM Work Phone: [facility] 03-25-2023 14:43-0400 Body weight 74.39 kg Cortney Plotmikie ASSEMBLY LINE BRAZER.CNM Work Phone: [facility] 03-25-2023 14:43-0400 Diastolic blood pressure 64 mm[Hg] Cortney Plotts ASSEMBLY LINE BRAZER.CNM Work Phone: [facility] 03-25-2023 14:43-0400 Systolic blood pressure 100 mm[Hg] Cortney Cash ASSEMBLY LINE BRAZER.CNM Work Phone: [facility] 03-25-2023 14:22-0400 Body height 170.2 cm Ob Ultrasound Work Phone: [facility] 03-25-2023 14:22-0400 Body weight 74.39 kg Ob Ultrasound Work Phone: [facility] 03-06-2022 11:09-0400 Body weight 68.04 kg Vilma Gray APRN.RESIDENTIAL HOUSEKEEPER Work Phone: [facility] 03-06-2022 11:09-0400 Diastolic blood pressure 68 mm[Hg] Vilma Gray APRN.RESIDENTIAL HOUSEKEEPER Work Phone: [facility] 03-06-2022 11:09-0400 Systolic blood pressure 136 mm[Hg] Vilma Gray APRN.RESIDENTIAL HOUSEKEEPER Work Phone: [facility] 10-10-2020 11:32-0500 Body Temperature 97.81 [degF] [facility] [place], [place] 10-10-2020 06:06-0500 BP Diastolic 58 mm[Hg] [facility] , [place] 10-10-2020 06:06-0500 BP Systolic 114 mm[Hg] [facility] [place] 10-10-2020 06:06-0500 Pulse (Heart Rate) 61 /min [facility] 10-10-2020 06:06-0500 Pulse Oximetry 97 % [facility] [place] 10-10-2020 06:06-0500 Respiratory Rate 18 /min [facility] [place] 10-07-2020 16:48-0500 BMI (Body Mass Index) 21.93 kg/m2 [facility], [place] 10-07-2020 16:48-0500 Body weight 63.5 kg [facility] [place] 10-07-2020 16:48-0500 Height 170.2 cm [place], [place] Encounters Encounter Date Encounter Type Care Provider Facility Start: 05-09-2025 End: 05-09-2025 ambulatory Alber Dawson RN NURSE MANUFACTURING SALES REPRESENTATIVE Comment on above: Patient Update Start: 02-15-2024 Telephone encounter Carrie alvares MD Work Phone: [facility] Start: 01-18-2024 End: 01-18-2024 ambulatory SELF Facility:[facility] Start: 01-18-2024 End: 01-18-2024 Patient encounter procedure Lakeisha Fortune APRN.RESIDENTIAL HOUSEKEEPER Work Phone: [facility] Comment on above: Strep throat (Primar y Dx); Nausea and vomiting, unspecified vomiting type Start: 01-03-2024 Telephone encounter Gracy Ross MD Work Phone: OB/Gynecology Comment on above: Appointment; Patient Update Start: 12-28-2023 End: 12-28-2023 ambulatory LOS AGUILAR Facility:[facility] Start: 12-06-2023 Telephone encounter Gracy Ross MD Work Phone: OB/Gynecology Comment on above: Abnormal Pap Start: 11-24-2023 End: 11-24-2023 ambulatory GRACY ROSS Facility:[facility] Start: 10-06-2023 End: 10-07-2023 Evaluation and management of inpatient Cortney Cash Facility:[facility] Start: 10-06-2023 End: 10-07-2023 Evaluation and management of inpatient [facility] Work Phone: Start: 10-05-2023 End: 10-05-2023 ambulatory KRYSTIAN VALENCIA Facility:[facility] Start: 10-05-2023 End: 10-05-2023 Patient encounter procedure Krystian Valencia MD Work Phone: OB/Gynecology Comment on above: Supervision of high risk in third trimester (Primary Dx); 39 weeks gestation of Start: 09-27-2023 End: 09-27-2023 ambulatory GRACY ROSS Facility:[facility] Start: 09-27-2023 End: 09-27-2023 Patient encounter procedure Gracy Ross MD Work Phone: OB/Gynecology Comment on above: Supervision of high risk in third trimester (Primary Dx); Anemia complicating , third trimester; 38 weeks gestation of Start: 09-24-2023 [facility] [place] Comment on above: Population Health Na vigation Outreach (Peds/OB) Start: 09-20-2023 End: 09-20-2023 ambulatory MARITZA RICHARD Facility:[facility] Start: 09-20-2023 End: 09-20-2023 Patient encounter procedure [facility] Work Phone: OB/Gynecology Comment on above: Encounter for ultras ound to check growth (Primary Dx); Supervision of high risk in third trimester; History of thyroid disease; 37 weeks gestation of Supervision of high risk in third trimester (Primary Dx); 37 weeks gestation of Start: 09-14-2023 Telephone encounter Dulce landeros APRN.CNP Work Phone: OB/Gynecology Comment on above: Results Start: 09-13-2023 End: 09-13-2023 ambulatory LEONARDO UPTON Facility:[facility] Start: 09-13-2023 End: 09-13-2023 Patient encounter procedure Dulce Shannon ASSEMBLY LINE BRAZER.RESIDENTIAL HOUSEKEEPER Work Phone: OB/Gynecology Comment on above: 36 weeks gestation o f (Primary Dx); Supervision of high risk in third trimester; Vaginal discharge Start: 09-02-2023 Telephone encounter Lon lima APRN.RESIDENTIAL HOUSEKEEPER Work Phone: OB/Gynecology Comment on above: Results Start: 09-01-2023 End: 09-02-2023 ambulatory LON ARANDA Facility:[facility] Start: 09-01-2023 End: 09-01-2023 Patient encounter procedure Lon Aranda ASSEMBLY LINE BRAZER.RESIDENTIAL HOUSEKEEPER Work Phone: OB/Gynecology Comment on above: Supervision of high risk in third trimester (Primary Dx); 34 weeks gestation of ; History of thyroid disease; Migraine with aura and without status migrainosus, not intractable; Anemia complicating , third trimester; Collin Hick's contraction Start: 09-01-2023 Telephone encounter Lon lima APRN.RESIDENTIAL HOUSEKEEPER Work Phone: OB/Gynecology Comment on above: Results Start: 08-18-2023 End: 08-18-2023 ambulatory CORTNEY CASH Facility:[facility] Start: 08-18-2023 End: 08-18-2023 Patient encounter procedure Cortney Cash ASSEMBLY LINE BRAZER.CNM Work Phone: OB/Gynecology Comment on above: 32 weeks gestation o f (Primary Dx); Encounter for supervision of other normal in third trimester; Anemia complicating , third trimester Start: 07-22-2023 Telephone encounter Cortney salazar ASSEMBLY LINE BRAZER.CNM Work Phone: OB/Gynecology Start: 07-21-2023 End: 07-22-2023 ambulatory CORTNEY CASH Facility:[facility] Start: 07-12-2023 End: 07-12-2023 ambulatory LEONARDO UPTON Facility:[facility] Start: 07-12-2023 Telephone encounter Leonardo bonner MD Work Phone: OB/Gynecology Comment on above: OB - spotting Start: 07-12-2023 End: 07-12-2023 Patient encounter procedure Gracy Ross MD Work Phone: OB/Gynecology Comment on above: Spotting in pregnanc y (Primary Dx); Bloody show and cramping in early ; 27 weeks gestation of Start: 06-29-2023 End: 06-29-2023 ambulatory DULCEAMAYA DE LEÓNF Facility:[facility] Start: 06-29-2023 End: 06-29-2023 Patient encounter procedure [facility] Work Phone: OB/Gynecology Comment on above: Encounter for follow -up ultrasound of anatomy (Primary Dx); 25 weeks gestation of Start: 06-23-2023 End: 06-23-2023 ambulatory CORTNEY [facility] Facility:[facility] Start: 06-23-2023 End: 06-23-2023 Patient encounter procedure Cortney Cash ASSEMBLY LINE BRAZER.CNM Work Phone: OB/Gynecology Comment on above: 24 weeks gestation o f (Primary Dx); Encounter for supervision of other normal in second trimester Start: 06-14-2023 Telephone encounter Dulce landeros ASSEMBLY LINE BRAZER.RESIDENTIAL HOUSEKEEPER Work Phone: OB/Gynecology Comment on above: Orders Start: 06-02-2023 Telephone encounter Cortney salazar ASSEMBLY LINE BRAZER.CNM Work Phone: OB/Gynecology Comment on above: Breast Pump Start: 05-26-2023 End: 05-27-2023 ambulatory GRACY ROSS Facility:[facility] Start: 05-26-2023 End: 05-26-2023 Patient encounter procedure Gracy Ross MD Work Phone: OB/Gynecology Comment on above: Encounter for superv ision of other normal in second trimester (Primary Dx); 20 weeks gestation of Encounter for anatomic survey (Primary Dx); 20 weeks gestation of Start: 04-21-2023 End: 04-21-2023 ambulatory CORTNEY CASH Facility:[facility] Start: 04-21-2023 End: 04-21-2023 Patient encounter procedure Maritza Richard ASSEMBLY LINE BRAZER.CNM Work Phone: OB/Gynecology Comment on above: 15 weeks gestation o f (Primary Dx) Start: 04-05-2023 End: 04-06-2023 ambulatory LEONARDO UPTON Facility:[facility] Start: 03-25-2023 End: 03-[facility] Start: 03-25-2023 End: 03-26-2023 ambulatory [facility] Facility:[facility] Start: 03-25-2023 End: 03-25-2023 Patient encounter procedure Cortney Cash APRN.CNM Work Phone: OB/Gynecology Comment on above: 11 weeks gestation o f (Primary Dx) Encounter for (NT) n uchal translucency scan (Primary Dx); 11 weeks gestation of Start: 03-04-2023 End: 03-05-2023 [facility] Facility:[facility] Start: 03-04-2023 End: 03-04-2023 Patient encounter procedure [facility] Work Phone: OB/Gynecology Comment on above: Encounter to determi ne viability of , single or unspecified fetus (Primary Dx); with uncertain viability, single or unspecified fetus Start: 02-26-2023 Telephone encounter Maritza sandoval APRN.CNM Work Phone: OB/Gynecology Comment on above: Abnormal Pap (/) Start: 02-18-2023 End: 02-19-2023 [facility] Facility:[facility] Start: 02-15-2023 End: 02-15-2023 Nursing evaluation of patient and report Nurse Pnob [facility] Work Phone: OB/Gynecology Comment on above: Current wi th history of spontaneous during prior (Primary Dx); History of bipolar disorder; History of alcohol abuse; History of thyroid disorder; Patient request for diagnostic testing Start: 02-15-2023 End: 02-15-2023 Patient requested procedure Nurse Karlee [facility] Work Phone: OB/Gynecology Start: 03-06-2022 End: 03-06-2022 Patient encounter procedure Vilma Gray APRN.RESIDENTIAL HOUSEKEEPER Work Phone: OB/Gynecology Comment on above: Irregular menses (Pr imary Dx); Encounter for BCP ( control pills) initial prescription; General counseling and advice for contraceptive management Start: 10-06-2020 [facility] Procedures Date Procedure Procedure Detail Performing Clinician Start: 01-18-2024 STREP A MOLECULAR (POC) Lakeisha Fortune ASSEMBLY LINE BRAZER.RESIDENTIAL HOUSEKEEPER Work Phone: Start: 10-05-2023 URINE OB DIP B/O Krystian Valencia MD Work Phone: Start: 09-27-2023 URINE OB DIP B/O Gracy Ross MD Work Phone: Start: 09-20-2023 URINE OB DIP B/O Ruma Richard ASSEMBLY LINE BRAZER.CNM Work Phone: Start: 09-20-2023 Us preg uterus after 1st trimest 10/25 gestation Lon Aranda ASSEMBLY LINE BRAZER.RESIDENTIAL HOUSEKEEPER Work Phone: Start: 09-13-2023 URINE OB DIP B/O Leonardo bethea MD Work Phone: Start: 09-01-2023 URINE OB DIP B/O Lon Aranda ASSEMBLY LINE BRAZER.RESIDENTIAL HOUSEKEEPER Work Phone: Start: 08-18-2023 URINE OB DIP B/O Sean Cash ASSEMBLY LINE BRAZER.CNM Work Phone: Start: 07-12-2023 BACTERIAL VAGINOSIS ODILONT Gracy Ross MD Work Phone: Start: 07-12-2023 Iadna trichomonas va ginalis amplified probe tech Gracy Ross MD Work Phone: Start: 07-12-2023 Urnls dip stick/tabl et rgnt auto w/o microscopy Leonardo Upton MD Work Phone: Start: 06-29-2023 Us preg uterus after 1st trimest 10/25 gestation Dulce Shannon ASSEMBLY LINE BRAZER.RESIDENTIAL HOUSEKEEPER Work Phone: Start: 06-23-2023 URINE OB DIP B/O Sean Cash ASSEMBLY LINE BRAZER.CNM Work Phone: Start: 05-26-2023 Us preg uterus after 1st trimest 10/25 gestation Maritzamichel Richard ASSEMBLY LINE BRAZER.CNM Work Phone: Start: 05-26-2023 URINE OB DIP B/O Gracy Ross MD Work Phone: Start: 04-21-2023 URINE OB DIP B/O Sean Cash ASSEMBLY LINE BRAZER.CNM Work Phone: Start: 03-25-2023 Antibody screen GRACY ROSS Comment on above: Order Comment: Speci men Type: BLOOD SPECIMEN [facility] [facility] Address: [address] [place] [address] Performed By: #### T SPN #### [facility] [id number] [facility] Start: 03-25-2023 URINE OB DIP B/O Sean Cash [employer].CNM Work Phone: Start: 03-25-2023 Us nuchal dias slucency 1st gestation Maritza Jose Manuel [employer].CNM Work Phone: Start: 03-04-2023 Us preg uterus after 1st trimest 10/25 gestation Maritza Jose Manuel [employer].CNM Work Phone: Start: 03-06-2022 Urine test visual color cmprsn meths Vilma Gray [employer]SEM[employer].RESIDENTIAL HOUSEKEEPER Work Phone: Start: 10-07-2020 Hemoglobin glycosylated a1c Brent Loco Work Phone: Start: 10-07-2020 Lipid panel Brent Loco Work Phone: Start: 10-05-2020 COVID-19 Peggy Aranda Work Phone: Start: 10-05-2020 Drug screen class list a Peggy Aranda Work Phone: Start: 10-05-2020 Urine test visual color cmprsn meths Peggy Aranda Work Phone: Start: 10-05-2020 Assay of ethanol Peggy Aranda Work Phone: Start: 10-05-2020 Basic metabolic pane l calcium total Peggy Aranda Work Phone: Start: 10-05-2020 Blood count complete auto&auto difrntl wbc Peggy Aranda Work Phone: Start: 10-05-2020 Hepatic function panel Peggy Aranda Work Phone: Start: 10-05-2020 Ecg routine ecg w/le ast 12 lds w/i&r Peggy Aranda Work Phone: Start: 10-05-2019 Electrocardiogram Start: 10-05-2019 Adult depression scr eening assessment Vilma Gray APRN.RESIDENTIAL HOUSEKEEPER Work Phone: Plan of Treatment Date Care Activity Detail Author Start: 07-21-2033 Urine microalbumin profile DTaP,Tdap,Td Vaccine (4 - Td or Tdap) [facility] Start: 07-11-2029 Urine microalbumin profile [facility] Start: 11-24-2026 Screening for malign ant neoplasm of cervix Pap Testing [facility] Start: 02-18-2026 PAP TESTING PAP TESTING [facility] Start: 02-18-2026 Screening for malign ant neoplasm of cervix Pap Testing [facility] Start: 06-25-2025 Influenza vaccination Influenza Vacc ine (#1) [facility] Start: 11-24-2024 Screening for malign ant neoplasm of cervix Cervical Cancer Screening [facility] Start: 06-25-2024 Covid-19 Vaccine ( season) Covid-19 Vaccine ( season) [facility] Start: 06-25-2024 Influenza vaccination Influenz a Vaccine (Season Ended) [facility] Start: 10-25-2023 Behavioral Health Screening Behavioral Health Screening [facility] Start: 10-25-2023 Depression Assessment Depression Ass essment [facility] Start: 10-07-2023 Patient discharge [facility] Start: 10-06-2023 Administration of medication [facility] Start: 10-06-2023 Application of ice collar, cap or bag [facility] Start: 10-06-2023 Catheterization of vein [facility] Start: 10-06-2023 Introduction of urin kasey catheter [facility] Start: 10-06-2023 Measuring intake and output [facility] Start: 10-06-2023 Notification of physician [facility] Start: 10-06-2023 Procedure discontinued [facility] Start: 10-06-2023 Provision of activit y privileges [facility] Start: 10-06-2023 Vital signs measurements [facility] Start: 10-06-2023 [facility] Start: 10-06-2023 [facility] Start: 10-06-2023 Obstetric monitoring [facility] Start: 10-06-2023 Vital signs measurements [facility] Start: 10-06-2023 [facility] Start: 10-06-2023 Consultation [facility] Start: 09-01-2023 End: 12-01-2023 Protein/Creatinine [Mass Ratio] in Urine [facility] Work Phone: Comment on above: Expected: 09/01/2023 , Expires: 12/01/2023 Start: 09-01-2023 End: 12-01-2023 Thyrotropin [Units/volume] in Serum or Plasma [facility] Work Phone: Comment on above: Expected: 09/01/2023 , Expires: 12/01/2023 Start: 09-01-2023 End: 12-01-2023 Thyroxine (T4) free [Mass/volume] in Serum or Plasma [facility] Work Phone: Comment on above: Expected: 09/01/2023 , Expires: 12/01/2023 Start: 06-25-2023 Covid-19 Vaccine () Covid-19 Vaccine () [facility] Start: 06-25-2023 Influenza vaccination [facility] Start: 06-23-2023 End: 08-23-2023 CBC W Auto Differential panel - Blood CBC + DIFF Lab Routine 24 weeks gestation of Encounter for supervision of other normal in second trimester Expected: 06/23/2023, Expires: 08/23/2023 [facility] Work Phone: Comment on above: Expected: 06/23/2023 , Expires: 08/23/2023 Start: 06-23-2023 End: 08-23-2023 GEST GLUC SCREEN, 1-HR, 50 GM, NON-FASTING GEST GLUC SCREEN, 1-HR, 50 GM, NON-FASTING Lab Routine 24 weeks gestation of Encounter for supervision of other normal in second trimester Expected: 06/23/2023, Expires: 08/23/2023 [facility] Work Phone: Comment on above: Expected: 06/23/2023 , Expires: 08/23/2023 Start: 06-23-2023 End: 08-23-2023 SYPHILIS TOTAL W/REFLEX SYPHILIS TOTAL W/REFLEX Lab Routine 24 weeks gestation of Encounter for supervision of other normal in second trimester Expected: 06/23/2023, Expires: 08/23/2023 [facility] Work Phone: Comment on above: Expected: 06/23/2023 , Expires: 08/23/2023 Start: 06-14-2023 End: 06-14-2024 OBSTETRIC ULTRASOUND WHI OBSTETRIC ULTRASOUND WHI Anc Imaging Routine Encounter for follow-up ultrasound of anatomy Expected: 06/14/2023, Expires: 06/14/2024 [facility] Work Phone: Comment on above: Expected: 06/14/2023 , Expires: 06/14/2024 Start: 05-26-2023 End: 07-26-2023 ALPHA FETOPRO MATERNAL [facility] Work Phone: Comment on above: Expected: 05/26/2023 , Expires: 07/26/2023 Start: 04-21-2023 End: 04-21-2024 OBSTETRIC ULTRASOUND WHI OBSTETRIC ULTRASOUND WHI Anc Imaging Routine 15 weeks gestation of Expected: 04/21/2023, Expires: 04/21/2024 [facility] Work Phone: Comment on above: Expected: 04/21/2023 , Expires: 04/21/2024 Start: 03-25-2023 End: 05-25-2023 Chromosome 21 trisomy [Presence] in Blood or Tissue by Cytogenetics [facility] Work Phone: Comment on above: Expected: 03/25/2023 , Expires: 05/25/2023 Start: 10-25-2022 DEPRESSION ASSESSMENT DEPRESSION ASS ESSMENT [facility] Start: 06-25-2022 Influenza vaccination INFLUENZ A (Season Ended) [facility] Start: 03-06-2022 End: 05-06-2022 Choriogonadotropin.beta subunit [Units/volume] in Serum or Plasma [facility] Work Phone: Comment on above: Expected: 03/06/2022 , Expires: 05/06/2022 Start: 12-15-2021 PAP TESTING PAP TESTING [facility] Start: 10-05-2020 Adult depression screening assessment DEPRESSION SCREENING [facility] Start: 06-25-2020 Influenza vaccination Flu vaccine (# 1) [place] Start: 2014 Hepatitis B Vaccine (1 of 3 - 19+ 3-dose series) Hepatitis B Vaccine (1 of 3 - 19+ 3-dose series) [facility] Start: 2014 ONE PNEUMOVAX PRIOR TO AGE 65 ONE PNEUMOVAX PRIOR TO AGE 65 [facility] Start: 2013 Anxiety Screening Anxiety Screening [facility] Start: 2013 Depression Screening Depression Scre ening [facility] Start: 2013 HEPATITIS C SCREENING HEPATITIS C SC LINDA [facility] Start: 2009 PEDS TO ADULT TRANSI TION ANNUAL ASSESSMENT PEDS TO ADULT TRANSITION ANNUAL ASSESSMENT [facility] Start: 2007 PEDS TO ADULT TRANSI TION INITIAL DISCUSSION PEDS TO ADULT TRANSITION INITIAL DISCUSSION [facility] Start: 2006 HPV VACCINE (1 - 2-d ose series) HPV VACCINE (1 - 2-dose series) [facility] Start: 2000 COVID-19 VACCINE (#1) COVID-19 VACCI NE (#1) [facility] Start: 04-11-1996 COVID-19 VACCINE (#1) COVID-19 VACCI NE (#1) [facility] Start: 1995 HEPATITIS B (1 of 3 - 3-dose series) HEPATITIS B (1 of 3 - 3-dose series) [facility] Start: 1995 Hepatitis B Vaccine (1 of 3 - 3-dose series) Hepatitis B Vaccine (1 of 3 - 3-dose series) [facility] BACTERIAL VAGINOSIS NAAT BACTERI AL VAGINOSIS NAAT Lab Routine Vaginal discharge 09/13/2023 12:09 PM EST [facility] Work Phone: FRANCESCO/TRICHOMONAS NAAT FRANCESCO /TRICHOMONAS NAAT Lab Routine Vaginal discharge 09/13/2023 12:09 PM [facility] Work Phone: End: 02-28-2024 OBSTETRIC ULTRASOUND WHI OBSTETRIC ULTRASOUND WHI Anc Imaging Routine Supervision of high risk in third trimester History of thyroid disease Once per month for 5 Occurrences starting 09/01/2023 until 02/28/2024 [facility] Work Phone: Comment on above: Once per month for 5 Occurrences starting 09/01/2023 until 02/28/2024 Patient referral [facility] Work Phone: ROUTINE, GR OUP B STREP PCR ROUTINE, GROUP B STREP PCR Microbiology Routine Supervision of high risk in third trimester 09/13/2023 12:09 PM [facility] Work Phone: URINE OB DIP B/O URINE OB DIP B/ O Lab Routine 27 weeks gestation of Ordered: 07/12/2023 [facility] Work Phone: Comment on above: Ordered: 07/12/2023 [facility] Immunizations Immunization Date Immunization Notes Care Provider Keith joseph 07-21-2023 tetanus toxoid, redu aung diphtheria toxoid, and acellular pertussis vaccine, adsorbed Cortney Cash [employer].CNM Work Phone: [facility] 07-11-2019 tetanus toxoid, redu aung diphtheria toxoid, and acellular pertussis vaccine, adsorbed Vilma Gary APRN.RESIDENTIAL HOUSEKEEPER Work Phone: [facility] 04-25-2018 tetanus toxoid, redu aung diphtheria toxoid, and acellular pertussis vaccine, adsorbed Vilma Gray APRN.RESIDENTIAL HOUSEKEEPER Work Phone: [facility] 08-02-2015 influenza virus vacc ine, unspecified formulation Leonardo Upton MD Work Phone: [facility] Payers Date Payer Category Payer Self-pay 2022 Medicaid [id number] 2019 Medicaid [id number] 2019 Medicaid [employer] [place] [id number] 2019-Present [phone] [address] [address] [place] [address] Medicaid [id number] Unknown [id number] Social History Date Type Detail Facility Start: 10-06-2020 [facility] day smoker [place] Start: 12-03-2013 End: 12-03-2021 History of tobacco use Cigarette Smoker [place] Start: 10-06-2020 Alcohol intake Current drinke r of alcohol (finding) [place] Start: 10-06-2020 Tobacco Comment unknown if norma ry day or some day smoker [place] Start: 10-06-2020 Alcohol Comment intoxicated on arrival to ED 10/05/20 [place] Start: 1995 Sex Assigned At Not on file [place] Start: 02-24-2022 End: 03-06-2022 Exposure to SARS-CoV-2 (event) Not sure [facility] [place] Start: 08-27-2021 End: 02-15-2023 Tobacco smoking status NHIS Ex-smoker [facility] Work Phone: Start: 08-27-2021 End: 03-25-2023 Cigarettes smoked current (pack per day) - Reported 1 [facility] Start: 08-27-2021 End: 02-15-2023 Tobacco use and exposure Smokeless tobacco non-user [facility] Work Phone: Start: 03-06-2022 End: 01-18-2024 Alcohol intake Ex-drinker (finding) [facility] Start: 12-08-2018 History SDOH Alcohol Comment occ, not while [facility] Start: 07-14-2021 [facility] Start: 12-03-2013 End: 12-03-2021 History of tobacco use Current smoker [facility] Work Phone: Start: 02-15-2023 Education 14 [facility] Start: 03-25-2023 End: 04-05-2023 Tobacco use panel [facility] Start: 10-06-2023 Tobacco smoking stat us NHIS Unknown if ever smoked [facility] Start: 09-01-2018 None [facility] Start: 1995 Sex Assigned At Female W [facility] Goals Date Patient Goal Desired Activity /State Personal health goal Functional Status Date Assessment Result Facility 08-19-2019 Are you deaf, or do you have serious difficulty hearing No 08/19/2019 1:11 PM Cortney Stephens RN [facility] 08-19-2019 Are you blind, or do you have serious difficulty seeing, even when wearing glasses No 08/19/2019 1:11 PM Cortney Stephens RN No [facility] 08-19-2019 Do you have serious difficulty walking or climbing stairs No 08/19/2019 1:11 PM Cortney Stephens RN No [facility] 08-19-2019 Do you have difficul ty dressing or bathing No 08/19/2019 1:11 PM Cortney Stephnes RN No [facility] 08-19-2019 Because of a physica l, mental, or emotional condition, do you have difficulty doing errands alone such as visiting a physician's office or shopping No 08/19/2019 1:11 PM EDT Cortney Garcia RN No [facility] Mental Status Date Assessment Result Facility 08-19-2019 Because of a physica l, mental, or emotional condition, do you have serious difficulty concentrating, remembering, or making decisions No 08/19/2019 1:11 PM EDT Cortney Garcia RN No [facility] Clinical Notes 08-19-2019 to 05-09-2025 Telephone Encounter - Alber Dawson RN - 05/09/2025 9:08 PM EDTTelephone Encounter - Alber Dawson RN - 05/09/2025 9:08 PM EDTTelephone Encounter - Nenita Pena - 02/17/2024 11:54 AM EDT Note Date & Type Note Facility 05-09-2025 Telephone encount er Note Reason for call: Patient calling with request to schedule an appointment for suspected vaginal cyst. Patient declining triage of symptoms at this time. Outcome: Reviewed Appointment Center hours of operation with patient. Patient verbalized understanding, states she will call for scheduling in the morning. Advised patient to call NOC with any other questions/concerns, or to go to ER/call 911 for any acute changes. Patient denies any new or worsening symptoms of which a provider is not aware: see above. GO TO THE EMERGENCY ROOM OR CALL 911 IF: * You develop any new symptoms * Your condition worsens * You are concerned or anxious about your condition for any other reason. If you have any questions, you can call Nurse construction manager back. [facility] 05-09-2025 Miscellaneous Notes Formattin g of this note might be different from the original. Reason for call: Patient calling with request to schedule an appointment for suspected vaginal cyst. Patient declining triage of symptoms at this time. Outcome: Reviewed Appointment Center hours of operation with patient. Patient verbalized understanding, states she will call for scheduling in the morning. Advised patient to call NOC with any other questions/concerns, or to go to ER/call 911 for any acute changes. Patient denies any new or worsening symptoms of which a provider is not aware: see above. GO TO THE EMERGENCY ROOM OR CALL 911 IF: * You develop any new symptoms * Your condition worsens * You are concerned or anxious about your condition for any other reason. If you have any questions, you can call Nurse construction manager back. documented in this encounter [facility] 02-17-2024 Telephone encount er Note 2nd attempt to contact the patient to schedule colposcopy. [facility] mesg sent 01/10- not read Unable to leave vm mesg, phone not in service. A letter will be mailed to home. Nenita Butt Admin [employer] [facility] 02-17-2024 Miscellaneous Notes Formattin g of this note might be different from the original. 2nd attempt to contact the patient to schedule colposcopy. [facility] mesg sent 01/10- not read Unable to leave vm mesg, phone not in service. A letter will be mailed to home. Nenita Butt Admin [employer] [facility] 1st attempt to contact the patient to schedule colposcopy. Unable to reach patient, phone line unable to take calls at this time. Will attempt at later time. Nenita Butt Admin [employer] [facility] documented in this encounter [facility] 02-15-2024 Telephone encount er Note 1st attempt to contact the patient to schedule colposcopy. Unable to reach patient, phone line unable to take calls at this time. Will attempt at later time. Nenita Butt Admin [employer] [facility] 01-18-2024 Note HNO ID: [id number] Author: LAKEISHA FORTUNE APRN.RESIDENTIAL HOUSEKEEPER Service: ? Author Type: Nurse Practitioner Type: Progress Notes Filed: 01/18/2024 08:44 Note Text: Express Care Visit SUBJECTIVE Erica Toro is a 28 year old female who presents with 2 day(s)of symptoms that are worsening. Symptoms include: Fever (?100.4F): Yes - tactile Chills: Yes Cough: Yes Shortness of breath: No or Wheezing: No Fatigue: Yes Muscle aches: Yes Headache: Yes Sore throat: Yes Ear pain: Yes - bilateral Nasal congestion: Yes or Rhinorrhea: Yes Nausea: Yes or Vomiting: Yes - 3 times over past 2 days. Diarrhea: Yes OTC meds/remedies that patient has tried: dayquil. Exposures: Sick contacts? Yes - daughter has vomiting and rash. No antibiotic use in past 3 months. LMP - now. etonogestrel (NEXPLANON) subdermal implant 68 mg 1 Each by SUBDERMAL route as directed. Lactobacillus acidophilus (FLORAJEN ACIDOPHILUS) 20 billion cell cap Take 1 capsule by mouth once daily. (Patient not taking: Reported on 11/24/2023) doxylamine (UNISOM, DOXYLAMINE,) 25 mg tab Take 1 tablet by mouth daily at bedtime. (Patient not taking: Reported on 11/24/2023) lv51-[id number] ps-folate 1 29 mg iron- 1 mg chew Take 1 tablet by mouth once daily. (Patient not taking: Reported on 11/24/2023) aspirin, enteric coated (ASPIRIN, ENTERIC COATED) 81 mg EC tablet Take 2 tablets by mouth once daily. 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 Constitutional: General: She is not in acute distress. Appearance: Normal appearance. She is not toxic-appearing. HENT: Right Ear: Ear canal normal. A middle ear effusion is present. Tympanic membrane is not erythematous or bulging. Left Ear: Ear canal normal. A middle ear effusion is present. Tympanic membrane is not erythematous or bulging. Nose: No mucosal edema. Right Sinus: No maxillary sinus tenderness or frontal sinus tenderness. Left Sinus: No maxillary sinus tenderness or frontal sinus tenderness. Mouth/Throat: Lips: Pelzer. No lesions. Mouth: Mucous membranes are moist. No oral lesions. Pharynx: Oropharynx is clear. Uvula midline. Posterior oropharyngeal erythema present. No pharyngeal swelling, oropharyngeal exudate or uvula swelling. Tonsils: No tonsillar exudate or tonsillar abscesses. 1+ on the right. 1+ on the left. Cardiovascular: Rate and Rhythm: Normal rate and regular rhythm. Heart sounds: Normal heart sounds. Pulmonary: Effort: Pulmonary effort is normal. No accessory muscle usage or respiratory distress. Breath sounds: Normal breath sounds and air entry. No decreased air movement. No decreased breath sounds, wheezing, rhonchi or rales. Lymphadenopathy: Head: Right side of head: Submandibular adenopathy present. Left side of head: Submandibular adenopathy present. Cervical: Cervical adenopathy present. Right cervical: Superficial cervical adenopathy present. No posterior cervical adenopathy. Left cervical: Superficial cervical adenopathy present. No posterior cervical adenopathy. Skin: General: Skin is warm and dry. Capillary Refill: Capillary refill takes less than 2 seconds. Neurological: Mental Status: She is alert and oriented to person, place, and time. BP 125/86 Pulse 97 Temp 37 ?C (98.6 ?F) (Tympanic) Resp 16 Wt 70 kg (154 lb 5.2 oz) LMP 12/20/2023 SpO2 96% BMI 24.17 kg/m2 ASSESSMENT/PLAN: Encounter Diagnosis ICD-10-CM 1. Strep throat J02.0 amoxicillin (AMOXIL) 500 mg capsule STREP A MOLECULAR (POC) 2. Nausea and vomiting, unspecified vomiting type R11.2 ondansetron orally disintegrating (ZOFRAN ODT) 4 mg disintegrating tablet Results for orders placed or performed in visit on 01/18/24 STREP A MOLECULAR (POC) Specimen: THROAT SWAB Result Value Ref Range Strep A (POCT) Positive (A) Negative Procedural Control Valid - Change toothbrush after 3 days to avoid reinfection. - Discussed supportive care treatment with fluids, rest and analgesia. - The patient may also use OTC decongestants prn, OTC cough and cold meds as needed, and warm salt water gargles, throat lozenges and/or OTC throat spray as needed. - Contagious dz precautions discussed- including considered contagious until on antibiotics for 24 hours - Call back if drooling, increased temperature, symptoms of dehydration (more content not included)... [facility] 01-18-2024 Instructions Lakeisha Fortune, CELESTE.[facility] - 01/18/2024 8:34 AM EDT - Change toothbrush after 3 days to avoid reinfection. What is strep throat? Strep throat is an infection caused by a specific type of bacteria, Streptococcus. When your child has a strep throat, the tonsils are usually very inflamed, and the inflammation may affect the surrounding part of the throat as well. Symptoms Strep throat is caused by a bacterium called Streptococcus pyogenes. To some extent, the symptoms of strep throat depend on the child s age. Infants with strep infections may have only a low fever and a thickened or bloody nasal discharge. Toddlers (ages one to three) also may have a thickened or bloody nasal discharge with a fever. Such children are usually quite cranky, have no appetite, and often have swollen glands in the neck. Sometimes toddlers will complain of tummy pain instead of a sore throat. Children over three years of age with strep are often more ill; they may have an extremely painful throat, fever over 102 degrees Fahrenheit (38.9 degrees Celsius), swollen glands in the neck, and pus on the tonsils. It s important to be able to distinguish a strep throat from a viral sore throat, because strep infections are treated with antibiotics. When to call the surveyor geophysical prospecting If your child has a sore throat that persists (not one that goes away after her first drink in the morning), whether or not it is accompanied by fever, headache, stomachache, or extreme fatigue, you should call your surveyor geophysical prospecting. That call should be made even more urgently if your child seems extremely ill, or if she has difficulty breathing or extreme trouble swallowing (causing her to drool). This may indicate a more serious infection. Treatment If the strep test shows that your child does have strep throat, your surveyor geophysical prospecting will prescribe an antibiotic to be taken by mouth or by injection. If your child is given the oral medication, it s very important that she take it for the full course, as prescribed, even if the symptoms get better or go away. If a child s strep throat is not treated with antibiotics, or if she doesn t complete the treatment, the infection may worsen or spread to other parts of her body, leading to conditions such as abscesses of the tonsils or kidney problems. Untreated strep infections also can lead to rheumatic fever, a disease that affects the heart. However, rheumatic fever is rare in the [place] and in children under five years old. Prevention Most types of throat infections are contagious, being passed primarily through the air on droplets of moisture or on the hands of infected children or adults. For that reason, it makes sense to keep your child away from people who have symptoms of this condition. However, most people are contagious before their first symptoms appear, so often there s really no practical way to prevent your child from jesenia the disease. In the past when a child had several sore throats, her tonsils might have been removed in an attempt to prevent further infections. But this operation, called a tonsillectomy, is recommended today only for the most severely affected children. Even in difficult cases, where there is repeated strep throat, antibiotic treatment is usually the best solution. documented in this encounter [facility] 01-18-2024 History of Presen t illness Narrative Express Care Visit SUBJECTIVE Erica Toro is a 28 year old female who presents with 2 day(s)of symptoms that are worsening. Symptoms include: Fever (?100.4F): Yes - tactile Chills: Yes Cough: Yes Shortness of breath: No or Wheezing: No Fatigue: Yes Muscle aches: Yes Headache: Yes Sore throat: Yes Ear pain: Yes - bilateral Nasal congestion: Yes or Rhinorrhea: Yes Nausea: Yes or Vomiting: Yes - 3 times over past 2 days. Diarrhea: Yes OTC meds/remedies that patient has tried: dayquil. Exposures: Sick contacts? Yes - daughter has vomiting and rash. No antibiotic use in past 3 months. LMP - now. etonogestrel (NEXPLANON) subdermal implant 68 mg 1 Each by SUBDERMAL route as directed. Lactobacillus acidophilus (FLORAJEN ACIDOPHILUS) 20 billion cell cap Take 1 capsule by mouth once daily. (Patient not taking: Reported on 11/24/2023) doxylamine (UNISOM, DOXYLAMINE,) 25 mg tab Take 1 tablet by mouth daily at bedtime. (Patient not taking: Reported on 11/24/2023) pa95-gpqs ps-folate 1 29 mg iron- 1 mg chew Take 1 tablet by mouth once daily. (Patient not taking: Reported on 11/24/2023) aspirin, enteric coated (ASPIRIN, ENTERIC COATED) 81 mg EC tablet Take 2 tablets by mouth once daily. 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 Constitutional: General: She is not in acute distress. Appearance: Normal appearance. She is not toxic-appearing. HENT: Right Ear: Ear canal normal. A middle ear effusion is present. Tympanic membrane is not erythematous or bulging. Left Ear: Ear canal normal. A middle ear effusion is present. Tympanic membrane is not erythematous or bulging. Nose: No mucosal edema. Right Sinus: No maxillary sinus tenderness or frontal sinus tenderness. Left Sinus: No maxillary sinus tenderness or frontal sinus tenderness. Mouth/Throat: Lips: Pelzer. No lesions. Mouth: Mucous membranes are moist. No oral lesions. Pharynx: Oropharynx is clear. Uvula midline. Posterior oropharyngeal erythema present. No pharyngeal swelling, oropharyngeal exudate or uvula swelling. Tonsils: No tonsillar exudate or tonsillar abscesses. 1+ on the right. 1+ on the left. Cardiovascular: Rate and Rhythm: Normal rate and regular rhythm. Heart sounds: Normal heart sounds. Pulmonary: Effort: Pulmonary effort is normal. No accessory muscle usage or respiratory distress. Breath sounds: Normal breath sounds and air entry. No decreased air movement. No decreased breath sounds, wheezing, rhonchi or rales. Lymphadenopathy: Head: Right side of head: Submandibular adenopathy present. Left side of head: Submandibular adenopathy present. Cervical: Cervical adenopathy present. Right cervical: Superficial cervical adenopathy present. No posterior cervical adenopathy. Left cervical: Superficial cervical adenopathy present. No posterior cervical adenopathy. Skin: General: Skin is warm and dry. Capillary Refill: Capillary refill takes less than 2 seconds. Neurological: Mental Status: She is alert and oriented to person, place, and time. BP 125/86 Pulse 97 Temp 37 C (98.6 F) (Tympanic) Resp 16 Wt 70 kg (154 lb 5.2 oz) LMP 12/20/2023 SpO2 96% BMI 24.17 kg/m2 ASSESSMENT/PLAN: Encounter Diagnosis ICD-10-CM 1. Strep throat J02.0 amoxicillin (AMOXIL) 500 mg capsule STREP A MOLECULAR (POC) 2. Nausea and vomiting, unspecified vomiting type R11.2 ondansetron orally disintegrating (ZOFRAN ODT) 4 mg disintegrating tablet Results for orders placed or performed in visit on 01/18/24 STREP A MOLECULAR (POC) Specimen: THROAT SWAB Result Value Ref Range Strep A (POCT) Positive (A) Negative Procedural Control Valid - Change toothbrush after 3 days to avoid reinfection. - Discussed supportive care treatment with fluids, rest and analgesia. - The patient may also use OTC decongestants prn, OTC cough and cold meds as needed, and warm salt water gargles, throat lozenges and/or OTC throat spray as needed. - Contagious dz precautions discussed- including considered contagious until on antibiotics for 24 hours - Call back if drooling, increased temperature, symptoms of dehydration and/or still sick in one week - Push fluids - small amounts frequently. - Slowly advance diet as tolerated. - See patient instructions for further recommendations. - Pt education along with discharge instructions given to pt - Discussed Red Flag signs and when to go to ER. - Pt agreeable with plan and verbalizes understanding. - Follow up with PCP if symptoms worsen or do not improve in the next 2-3 days. Lakeisha Fortune APRN.RESIDENTIAL HOUSEKEEPER documented in this encounter [facility] 01-03-2024 Miscellaneous Notes Formattin g of this note might be different from the original. Attempted to call patient. Unable to leave message because voicemail is not setup. Anahy Wood RN Patient called and left voicemail on general surgeons voicemail regarding colposcopy. Patient stated she wishes to cancel for procedure today due to all kids being sick. She would like to be called to reschedule and go over some questions and concerns she has as she is worried about undergoing the procedure Please review and advise patient Colposcopy cancelled for today 01/03/2024 documented in this encounter [facility] 12-28-2023 Note HNO ID: [id number] Author: KARI RAMOS MD Service: ? Author Type: Physician Type: Progress Notes Filed: 12/28/2023 12:18 Note Text: Child Care Nurse offered: Patient declinesAbdulaziz Maldonado is a 28 year old patient who presents for Nexplanon insertion. Patient's last menstrual period was 12/20/2023. VITALS: Wt 156 lb (70.8kg) LMP 12/20/2023 LMP last weeks however has been sexually active not using BC. Negative test today however that does not guarantee conception has not already occurred. Reviewed that possibility with patient. She would like to procedure with placement with the understanding that it will need to be removed if positive occurs test: negative Nexplanon lot #: [id number] Exp date: 09/23/25 [facility][NOTE 3]: [id number] UNIVERSAL PROTOCOL / SAFETY CHECKLIST Procedure to be Performed: Nexplanon insertion Sign In: A Moment of CARE was completed. No special equipment needed. Patient/Surrogate Stated/Verified: PATIENT VERIFIED(optional for EMERGENT procedures): Patient name, Date of , Relevant allergies, and The intended procedure Time Out Communication: Intended patient and procedure match the source documents. Consent documented and matches the intended procedure. Relevant labs, photos, and/or imaging studies have been reviewed. Medications required for procedure verified. Implant(s) inserted: Correct implant(s) confirmed including size and side. and Expiration date(s) reviewed. Sign Out: SIGN OUT (optional for EMERGENT procedures): No specimen collected. Post-procedure follow-up management communicated and Plan of Care Visit completed when applicable. Priyanka Doe LPN TECHNIQUE: Patient placed in supine position with right) bent at the elbow and placed over the head. Skin cleansed with betadine. 1.5mL of 1% lidocaine with 1:100,000 epi injected subQ along insertion site. Nexplanon olena inserted under sterile technique. After insertion by the provider, the olena was palpable under the skin by both patient and provider. Steristrips and sterile pressure dressing applied. AANDP: Nexplanon inserted without complications. Patient user card was filled out and given to the patient. The patient was instructed to remove the dressing after 24 hours. Advised to use backup contraception for 7 days. Kari Ramos MD [facility] 12-21-2023 Miscellaneous Notes Formattin g of this note might be different from the original. Third attempt to contact patient. Number not working. Letter sent. Marii Gonsales RN Attempted to call patient again but phone number is still not accepting calls. Consuelo Still RN Attempted to contact patient but number listed for patient is currently not accepting calls. [employer] message and letter sent. Appointment note for upcoming appointment tomorrow updated to notify of results. Marii Gonsales RN ----- Message from Gracy Ross MD sent at 12/06/2023 1:24 PM EST ----- Ascus-H and HPV + , needs colposcopy scheduled. documented in this encounter [facility] 11-24-2023 Note HNO ID: [id number] Author: GRACY RIVAS MD Service: ? Author Type: Physician Type: Progress Notes Filed: 11/24/2023 16:42 Note Text: Child Care Nurse offered: Patient declines. VISIT Erica Toro is a 28 year old year old here for visit. Delivery Summary: 10/06/2024 ROS/ Recovery: Feeding: Breast feeding problems: None Menses since delivery: spotting Menstrual pattern prior to : Regular periods [place] since delivery: Not resumed Depression: denies symptoms of depression. OB Depression and Anxiety Screening- This Encounter (since 11/23/2023) Over the past 2 weeks have you felt down, depressed, or hopeless? Negative Over the past two weeks, have you felt little interest or pleasure in doing things?? Negative Feeling nervous, anxious or on edge 0-Not at all Not being able to stop or control worrying 0-Not al all Anxiety Pre-Screening Total (If >/= 3 additional questions will be reviewed) 0 Emotional support: Yes Bowel symptoms: Negative for abdominal discomfort, blood in stools or black stools and change in bowel habits Abdomen: N/A Bladder symptoms: No dysuria, gross hematuria, urinary frequency, urinary urgency, or incontinence Other issues: Discuss control Last Pap: 2022 abnormal, ascus HPV: positive PAST MEDICAL HISTORY Diagnosis Date 40 weeks gestation of 08/19/2019 - Denies complications during this - last office check pt states she was 1 cm dilated - Endorsing leakage of fluid - Nitrazine/Ferning Negative - M[place] 21cm Per Dr. Beckwith - Plan to give pt 1 hour and recheck cervical width Anemia Anxiety disorder Atypical squamous cell changes of undetermined significance (ASCUS) on cervical cytology with positive high risk human papilloma virus (HPV) 11/12/2017 Bipolar 1 disorder (HCC) Current with history of spontaneous during prior 02/15/2023 Depression NEGATIVE MEDICAL HISTORY Nexplanon insertion 2018 depression Psychiatric disorder PTSD (post-traumatic stress disorder) Subchorionic hematoma in first trimester 09/08/2021 Threatened labor at term 08/19/2019 Thyroid disease PAST SURGICAL HISTORY Procedure Laterality Date EXTRACTION, ERUPTED TOOTH OR EXPOSED ROOT (ELEVATION AND/OR FORCEPS REMOVAL) NEXPLANON REMOVAL 05/2021 PAST SURGICAL HISTORY OF wisdom teeth FAMILY HISTORY Problem Relation Age of Onset Drug abuse Mother Heart Mother No Known Problems Sister No Known Problems Brother Cancer Maternal Grandmother No Known Problems Maternal Grandfather No Known Problems Paternal Grandmother No Known Problems Paternal Grandfather No Known Problems Daughter No Known Problems Daughter No Known Problems Son Social History Tobacco Use Smoking status: Former Packs/day: 1.00 Years: 8.00 Additional pack years: 0.00 Total pack years: 8.00 Types: Cigarettes Quit date: 12/03/2021 Years since quittin.9 Smokeless tobacco: Never Vaping Use Vaping Use: Never used Substance Use Topics Alcohol use: Not Currently Comment: occ, not while Drug use: No PHYSICAL EXAMINATION: BP 102/64 Wt 158 lb 6.4 oz (71.9kg) GENERAL: pleasant, female in no apparent distress HEENT: Normocephalic, atraumatic, mucus membranes moist, and no lesions NECK: Supple, full range of motion, no adenopathy, and thyroid normal DERMATOLOGY: Normal, without lesions, non-icteric, and non-hirsute BREAST: deferred- pt full - needs to feed ABDOMEN: soft, non-tender, and no masses. INCISION: N/A PELVIC: external genitalia normal, normal Bartholin's glands, urethra, Cary's glands, no vulvar lesions, no cervical lesions, good vaginal support, physiologic discharge present, normal appearing perineal body and perianal region BIMANUAL: uterus normal size, shape and consistency, no adnexal masses, and non-tender NEURO: alert and oriented x3,exam grossly non-focal EXTREMITIES: normal ASSESSMENT AND PLAN: 28 year old status post with normal course. Contraception plan: nexplanon Follow up: Abnormal Pap in : Repeated today., RTO for nexplanon Gracy Clark MD [facility] 10-07-2023 Discharge summary Note Date/Time October 07, 2023 8:40am [facility] Medical Records Department [address] [place] [address] Discharge Summary 10/07/23 0838 MR#: [id number] Acct: [id number] Name: ERICA TORO Rep #:[id number] : 1995 27 From: Krystian Valencia MD PCP: Care Physician,No Primary Status :ADM IN Location: [id number] Providers Date of Admission: 10/06/23 Primary Care Physician: No Primary Care Phys Reason For Visit: LABOR AND DELIVERY Diagnosis Discharge Diagnosis (1) (spontaneous vaginal delivery): Status: Acute Code(s): O80 - Encounter for full-term uncomplicated delivery (2) Care and examination of lactating mother: Status: Acute Code(s): Z39.1 - Encounter for care and examination of lactating mother (3) Alcohol abuse: Status: Acute Code(s): F10.10 - Alcohol abuse, uncomplicated Plan Routine care & possible d/c to home later today Medications at Discharge Home Medications vits,calcium no.78-iron fumarate-folic acid 29 mg-1 mg tablet (Prenatabs FA) 1 tab PO DAILY vitamin 05/29/18 ibuprofen 600 mg tablet 600 mg PO Q6H PRN PRN Pain Score 1-3/10 #40 tabs 08/22/19 ondansetron 4 mg disintegrating tablet 4 mg PO Q8H PRN PRN Nausea #10 tabs 04/03/20 Hospital Course Summary of Care Provided Minutes Spent on Discharge: 15 Hospital Course: Vaginal delivery Weight / BMI Weight Weight: 182 lb Body Mass Index (BMI) 28.5 ABG / Lab / Microbiology Data 10/06/23 13:50 Laboratory: Laboratory Results - last 24 hr 10/06/23 13:50: WBC 9.6, RBC 5.07, Hgb 11.4 L, Hct 37.4, MCV 73.8 L, MCH 22.5 L,MCHC 30.5 L, RDW Std Deviation 45.9 H, RDW Coeff of Steven 17.4 H, Plt Count 180, MPV 11.8, Immature Gran % (Auto) 0.300, Neut % (Auto) 81.4 H, Lymph % (Auto) 12.5 L, [place] % (Auto) 5.0, Eos % (Auto) 0.5, Baso % (Auto) 0.3, Absolute Neuts (auto) 7.8 H, Absolute Lymphs (auto) 1.20, Nucleated RBC % 0, Syphilis Total Ab Non-reactive, Blood Type A POSITIVE, Antibody Screen NEGATIVE D/C Instructions Discharge Diet: No restrictions Discharge Activity: May Shower May resume sexual activity in: 6 weeks Weight Bearing Status: Weight bearing as tolerated Call your doctor if you observe: Fever of 101 or Higher, Coldness, Increased Pain, Change in Color, Inability to urinate, Inability to have a bowel movement,Using more than 1 pad per hour, Shortness of breath, Dizziness, Fainting spells,Chest pain, Increased palpitations (irregular heartbeat), Calf discomfort and Uncontrolled pain Please Follow Up With: Cortney Cash CNM When: Follow up in 2 and 6 weeks for visits. Meaningful Use Info Meaningful Use Diagnoses (Choose all that apply): None applicable Discharge Plan Admission Admit Date/Time: 10/06/23 13:26 Primary Reason for Your Visit: Vaginal delivery Attending Provider: Cortney Cash Primary Care Provider: Care Physician,Michelle Primary Discharge Orders/Prescriptions Prescriptions: Continued Prenatabs FA 1 TABLET tablet 1 tab PO DAILY ibuprofen 600 MG tablet 600 mg PO Q6H PRN PRN (Reason: Pain Score 1-3/10) Qty: 40 0RF ondansetron 4 MG tablet 4 mg PO Q8H PRN PRN (Reason: Nausea) Qty: 10 0RF Discontinued oxycodone 5 mg capsule 5 mg PO Q6H PRN (Reason: pain) 3 Days Qty: 12 0RF ondansetron HCl [Zofran] 4 mg tablet 4 mg PO Q8H Qty: 10 0RF Referrals / Follow Up: Care Physician,No Primary [Primary Care Provider] - Disposition Disposition (needs filled in before D/C Order can be placed): Home, Self Care 10/07/23 0843 <Electronically signed by Krystian Valencia MD> Cosigner Signature (if applicable): CC: Dr. Krystian Valencia MD; No Primary Care Physician~ Signed [facility] Work Phone: 1(587) 361-807712-14-2023 NoteHNO ID: [id number] Author: Kari Balderas RN Service: ? Author Type: Registered Nurse Type: Progress Notes Filed: 10/07/2023 8:41 AM Note Text: Patient delivered via at [facility] on 10/06/23 per Cortney Cash CNM. See OB Outcome note. [facility] Note [facility] Medical Records Department [address] [place] [address] Discharge Summary 10/07/23 0838 MR#: [id number] Acct: [id number] Name: ERICA TORO Rep #: [id number] : 1995 27 From: Krystian Valencia MD PCP: Care Physician,No Primary Status:ADM IN Location: [id number] Providers Date of Admission: 10/06/23 Primary Care Physician: No Primary Care Phys Reason For Visit: LABOR AND DELIVERY Diagnosis Discharge Diagnosis (1) (spontaneous vaginal delivery): Status: Acute Code(s): O80 - Encounter for full-term uncomplicated delivery (2) Care and examination of lactating mother: Status: Acute Code(s): Z39.1 - Encounter for care and examination of lactating mother (3) Alcohol abuse: Status: Acute Code(s): F10.10 - Alcohol abuse, uncomplicated Plan Routine care possible d/c to home later today Medications at Discharge Home Medications vits,calcium no.78-iron fumarate-folic acid 29 mg-1 mg tablet (Prenatabs FA) 1 tab PO DAILY vitamin 05/29/18 ibuprofen 600 mg tablet 600 mg PO Q6H PRN PRN Pain Score 1-3/10 #40 tabs 08/22/19 ondansetron 4 mg disintegrating tablet 4 mg PO Q8H PRN PRN Nausea #10 tabs 04/03/20 Hospital Course Summary of Care Provided Minutes Spent on Discharge: 15 Hospital Course: Vaginal delivery Weight / BMI Weight Weight: 182 lb Body Mass Index (BMI) 28.5 ABG / Lab / Microbiology Data 10/06/23 13:50 Laboratory: Laboratory Results - last 24 hr 10/06/23 13:50: WBC 9.6, RBC 5.07, Hgb 11.4 L, Hct 37.4, MCV 73.8 L, MCH 22.5 L, MCHC 30.5 L, RDW Std Deviation 45.9 H, RDW Coeff of Steven 17.4 H, Plt Count 180, MPV 11.8, Immature Gran % (Auto) 0.300, Neut % (Auto) 81.4 H, Lymph % (Auto) 12.5 L, [place] % (Auto) 5.0, Eos % (Auto) 0.5, Baso % (Auto) 0.3, Absolute Neuts (auto) 7.8 H, Absolute Lymphs (auto) 1.20, Nucleated RBC % 0, Syphilis Total Ab Non-reactive, Blood Type A POSITIVE, Antibody Screen NEGATIVE D/C Instructions Discharge Diet: No restrictions Discharge Activity: May Shower May resume sexual activity in: 6 weeks Weight Bearing Status: Weight bearing as tolerated Call your doctor if you observe: Fever of 101 or Higher, Coldness, Increased Pain, Change in Color, Inability to urinate, Inability to have a bowel movement, Using more than 1 pad per hour, Shortness of breath, Dizziness, Fainting spells, Chest pain, Increased palpitations (irregular heartbeat), Calf discomfort and Uncontrolled pain Please Follow Up With: Cortney Cash CNM When: Follow up in 2 and 6 weeks for visits. Meaningful Use Info Meaningful Use Diagnoses (Choose all that apply): None applicable Discharge Plan Admission Admit Date/Time: 10/06/23 13:26 Primary Reason for Your Visit: Vaginal delivery Attending Provider: Cortney Cash Primary Care Provider: Care Physician,Michelle Primary Discharge Orders/Prescriptions Prescriptions: Continued Prenatabs FA 1 TABLET tablet 1 tab PO DAILY ibuprofen 600 MG tablet 600 mg PO Q6H PRN PRN (Reason: Pain Score 1-3/10) Qty: 40 0RF ondansetron 4 MG tablet 4 mg PO Q8H PRN PRN (Reason: Nausea) Qty: 10 0RF Discontinued oxycodone 5 mg capsule 5 mg PO Q6H PRN (Reason: pain) 3 Days Qty: 12 0RF ondansetron HCl [Zofran] 4 mg tablet 4 mg PO Q8H Qty: 10 0RF Referrals / Follow Up: Care Physician,No Primary [Primary Care Provider] - Disposition Disposition (needs filled in before D/C Order can be placed): Home, Self Care 10/07/23 3916 Cosigner Signature (if applicable): CC: Dr. Krystian Valencia MD; No Primary Care Physician [facility]igned[facility] Progress note Author Krystian Valencia [facility] October 07, 2023 8:37am Note Date/Time October 07, 2023 8:37am [facility] Medical Records Department [address] [place] [address] Progress Note - OBGYN 10/07/23 0835 MR#: [id number] Acct: [id number] Name: ERICA TORO Rep #:[id number] : 1995 27 From: Krystian Valencia MD PCP: Care Physician,No Primary Status :ADM IN Location: OH626-2 Subjective Subjective Denies complaints Objective Data Objective Data Vital Signs: Vital Signs Temp Pulse Resp BP Pulse Ox O2 Del Method 98.3 F 64 16 108/52 L 98 Room Air 10/07/23 03:52 10/07/23 03:52 10/07/23 03:52 10/07/23 03:52 10/06/23 20:07 10/07/23 03:52 Oxygen Delivery Method Room Air Weight: 182 lb Body Mass Index (BMI) 28.5 Intake & Output: Intake and Output for Last 24 Hours 10/05/23 10/06/23 10/07/23 23:59 23:59 23:59 Intake Total 1103.34 / 1103.34 Output Total 700 / 700 Balance 403.34 / 403.34 Lab / Micro Data 10/06/23 13:50 Labs: Laboratory Results - last 24 hr 10/06/23 13:50: WBC 9.6, RBC 5.07, Hgb 11.4 L, Hct 37.4, MCV 73.8 L, MCH 22.5 L,MCHC 30.5 L, RDW Std Deviation 45.9 H, RDW Coeff of Steven 17.4 H, Plt Count 180, MPV 11.8, Immature Gran % (Auto) 0.300, Neut % (Auto) 81.4 H, Lymph % (Auto) 12.5 L, [place] % (Auto) 5.0, Eos % (Auto) 0.5, Baso % (Auto) 0.3, Absolute Neuts (auto) 7.8 H, Absolute Lymphs (auto) 1.20, Nucleated RBC % 0, Syphilis Total Ab Non-reactive, Blood Type A POSITIVE, Antibody Screen NEGATIVE Physical Exam Const alert, oriented x3 and no apparent distress HEENT normocephalic GI soft to palpation, non-tender and non-distended GI Narrative: fundus firm, mid & below umbilicus Extremity normal to inspection and no calf tenderness Assessment & Plan (1) (spontaneous vaginal delivery): COMMENT: PPD#1 (2) Care and examination of lactating mother: (3) Alcohol abuse: COMMENT: History of alcohol abuse. 2020 was last time. Pt was in AA. Currently doing well. 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 She has been having contractions since yesterday. Was seen in office and CE completed. She continued to have contractions last night and today. Denies any loss of fluid or vaginal bleeding. Positive movement. Maternal Data Information MEGAN Calculator Estimated Delivery Date Method Current WG Current Estimate 10/08/23 Manual 39w 5d PFSH PFSH Medical History Alcohol abuse Anemia Bipolar disorder BV (bacterial vaginosis) Family history of hearing loss at age younger than 7 years HPV (human papilloma virus) infection Post traumatic stress disorder (PTSD) Thyroid disorder Home Medications vits,calcium no.78-iron fumarate-folic acid 29 mg-1 mg tablet (Prenatabs FA) 1 tab PO DAILY vitamin 05/29/18 [History Last Taken 08/19/19 08:00] ibuprofen 600 mg tablet 600 mg PO Q6H PRN PRN Pain Score 1-3/10 #40 tabs 08/22/19 [Rx Last Taken Unknown] ondansetron 4 mg disintegrating tablet 4 mg PO Q8H PRN PRN Nausea #10 tabs 04/03/20 [Rx Last Taken Unknown] ondansetron HCl 4 mg tablet (Zofran) 4 mg PO Q8H #10 tabs 09/08/21 [Rx Last Taken Unknown] oxycodone 5 mg capsule 5 mg PO Q6H PRN pain 3 days #12 caps 09/08/21 [Rx Last Taken Unknown] Allergy/AdvReac Type Severity Reaction Status Date / Time No Known Allergies Allergy Verified 09/08/21 19:43 Social History Smoking Status: Former smoker History Elective abortions Hx Para 3 Spontaneous abortions Hx # Term Pregnancies Ectopic pregnancies Hx # Pregnancies Multiple births # of living children ROS Eyes Eyes: Denies blurry vision, change in vision or spots in vision ENT HEENT: Denies dizziness or headache(s) Cardiovascular Cardiovascular: Denies abdominal pain, chest pain or dyspnea Respiratory/Chest Respiratory/Chest: Denies cough, dyspnea, shortness of breath at rest or shortness of breath with exertion Gastrointestinal Gastrointestinal: Denies abdominal pain, diarrhea or vomiting Genitourinary Genitourinary: Denies change in urinary stream, difficulty urinating or dysuria Musculoskeletal Musculoskeletal: Reports none Integumentary Integumentary: Denies rash Neurologic Neurologic: Denies dizziness, headache(s), memory loss or weakness Psychiatric Psychiatric: Reports none Vital Signs Vital Signs Vital Signs: 10/06/23 14:54 10/06/23 14:54 10/06/23 14:54 Pulse Rate 72 Blood Pressure 125/62 H BP Systolic 125 BP Diastolic 62 Pulse Ox 100 10/06/23 14:59 10/06/23 14:59 10/06/23 15:01 Pulse Rate 71 Blood Pressure 111/53 L BP Systolic 111 BP Diastolic 53 Pulse Ox 100 10/06/23 15:01 10/06/23 15:04 10/06/23 15:04 Pulse Rate 64 60 Blood Pressure BP Systolic BP Diastolic Pulse Ox 100 10/06/23 15:06 10/06/23 15:06 10/06/23 15:07 Pulse Rate 57 L 62 Blood Pressure 116/54 L BP Systolic 116 BP Diastolic 54 Pulse Ox 10/06/23 15:07 10/06/23 15:09 10/06/23 15:09 Pulse Rate 68 Blood Pressure BP Systolic BP Diastolic Pulse Ox 90 100 10/06/23 15:11 10/06/23 15:11 10/06/23 15:33 Pulse Rate 63 Blood Pressure 100/52 L 114/57 L BP Systolic 100 114 BP Diastolic 52 57 Pulse Ox 10/06/23 15:33 10/06/23 15:53 10/06/23 15:53 Pulse Rate 98 83 Blood Pressure 116/66 BP Systolic 116 BP Diastolic 66 Pulse Ox 10/06/23 16:31 10/06/23 16:31 Pulse Rate 184 H Blood Pressure 135/68 H BP Systolic 135 BP Diastolic 68 Pulse Ox Weight Weight: 182 lb Body Mass Index (BMI) 28.5 Physical Exam Const alert, oriented x3 and no apparent distress General Appearance: cooperative Orientation / Consciousness: awake Exam Limitations: no limitations HEENT normocephalic Head and Scalp: normal to inspection Eyes General Eye: normal appearance of both eyes Neck full ROM and no lymphadenopathy Lymph Lymphatic: no lymphadenopathy noted Chest inspection of chest normal Resp normal respiratory effort, normal air movement and clear to auscultation bilaterally Effort and Inspection: able to speak in complete sentences and symmetric chest movement Cardio regular rate and regular rhythm GI normal to inspection, nondistended, normoactive bowel sounds Manual OB Exam: presentation cephalic Back/Spine normal ROM Extremity full ROM and no calf tenderness Skin no rashes or lesions noted General Skin Exam: no breakdown Neuro oriented x3 and CN's II-XII intact bilaterally Psych mental status grossly normal and thought process normal Labs Labs Labs: Blood Type A POSITIVE Antibody Screen NEGATIVE Hct 37.4 % (37-47) Hgb 11.4 g/dL (12.0-15.0) L Obstetrics Ultrasound Syphilis Total Ab Non-reactive Hep Bs Antigen Negative (Negative) Hepatitis C Ab (EIA) <0.1 s/co ratio (0.0-0.9) HIV 1&2 Antibody Non-Reactive (Nonreactive) Rhogam given: No GBS negative Assessment & Plan (1) 39 weeks gestation of : (2) Alcohol abuse: COMMENT: History of alcohol abuse. 2020 was last time. Pt was in AA. Currently doing well. (3) Post traumatic stress disorder (PTSD): COMMENT: Childhood trauma (4) Bipolar disorder: COMMENT: Bipolar depression. Pt was hospitalized after last delivery for suicidal thoughts. Pt currently feels stable, denies any SI. (5) Spontaneous onset of labor: (6) Multiparous: PLAN: Plan /- Admit to labor and delivery for spontaneous onset of labor Epidural when indicated Routine labs Start IV and run fluids per orders Anticipate Dr. Ross notified of admission and is collaborating physician 10/06/23 8700 <Electronically signed by Cortney Cash CNM> Cosigner Signature (if applicable): CC: SURESH Cash; No Primary Care Physician~ Signed [facility] Work Phone: [phone] Procedure [facility] 10-05-2023 Miscellaneous Notes* Quick Notes - Krystian Valencia MD - 10/05/2023 2:09 PM EST KJ - VB No. LOF No. CTXS Yes - irregular. Movement: present. Other c/o: No. Medication list reviewed. Physical Exam See Flow Sheet Gen: no accute distress, well appearing Abd: soft, nontender, gravid A/P 39w4d Estimated Date of Delivery: 10/08/23 Patient likely in early labor Labor precautions reviewed, Kick counts reviewed. Krystian Valencia MD documented in this encounterBrown [facility] Hospital12-12-2023 Instructions* Patient Instructions* s Cha Zaman - 10/05/2023 1:53 PM EST SEQUENTIAL SCREENINGS [facility] offers sequential screenings for women who are interested in screenings for chromosomal abnormalities and certain defects during a . The sequential screen combinesultrasound and blood tests to determine the risk of chromosomal abnormalities, including Down's Syndrome (Trisomy 21) and Trisomy 18, as well as open neural tube defects including spina bifida. Ultrasound examination is performed between 11 weeks and 13 weeks gestational age. Blood tests are drawn after the ultrasound and again later in the between 15 and 21 weeks gestational age. Please let your physician know if you are interested in this testing. It will require an appointment withour optical manufacturing technician. This is not an ultrasound performed by a physician in our office during a routine visit. SIGNS AND SYMPTOMS OF LABOR 1. Contractions every 10 minutes or more often 2. Clear, pink, or brownish fluid (water) leaking from vagina 3. Feeling that baby is pushing down, pressure 4. Low, dull backache 5. Cramps that feel like a period 6. Cramps with or without diarrhea If you notice any of the above symptoms, contact our office at [phone] and ask to speak with anurse. After hours, you can call doctors registry at [phone] OR call [facility] at [phone] ask to have the doctor automation qtp tester paged. If you consider this an emergency, dial 9-1-5 or go to your nearest emergency department. NEED HELP? Are you dealing with a violent or abusive relationship? Are you a victim of rape or sexual assult? Call [facility] ([place]) 24 hour Crisis Hotline: 753.427.1193 or 077-348-1624. MANUAL Your Guide to a Healthy manual is now on-line. Visit [email or web address] to download your free copy documented in this encounterBrown Memorial Hospital12-04-2023 Miscellaneous Notes* Quick Notes - Gracy Rivas MD - 09/27/2023 11:47 AM EST DM-Pt doing well. Denies vaginal Bleeding, Leaking fluid, or regular Contractions. Pt reports good movement Physical Exam: Gen: female in no apparent distress Abd: soft, Gravid. Non tender to palpation. See flow sheet A/P: @ 38.3 1) kick counts and labor reviewed 2) keeps forgetting abx- discussed finishing course of abx- BV 3) RTO one week Gracy Clark MD documented in this encounterBrown Memorial Hospital12-04-2023 Instructions* Patient Instructions* Marilyn Darden Ma - 09/27/2023 11:17 AM EST SEQUENTIAL SCREENINGS [facility] offers sequential screenings for women who are interested in screenings for chromosomal abnormalities and certain defects during a . The sequential screen combinesultrasound and blood tests to determine the risk of chromosomal abnormalities, including Down's Syndrome (Trisomy 21) and Trisomy 18, as well as open neural tube defects including spina bifida. Ultrasound examination is performed between 11 weeks and 13 weeks gestational age. Blood tests are drawn after the ultrasound and again later in the between 15 and 21 weeks gestational age. Please let your physician know if you are interested in this testing. It will require an appointment withour optical manufacturing technician. This is not an ultrasound performed by a physician in our office during a routine visit. SIGNS AND SYMPTOMS OF LABOR 1. Contractions every 10 minutes or more often 2. Clear, pink, or brownish fluid (water) leaking from vagina 3. Feeling that baby is pushing down, pressure 4. Low, dull backache 5. Cramps that feel like a period 6. Cramps with or without diarrhea If you notice any of the above symptoms, contact our office at [phone] and ask to speak with anurse. After hours, you can call doctors registry at [phone] OR call [facility] at [phone] ask to have the doctor automation qtp tester paged. If you consider this an emergency, dial 1-9-7 or go to your nearest emergency department. NEED HELP? Are you dealing with a violent or abusive relationship? Are you a victim of rape or sexual assult? Call [facility] ([facility] 24 hour Crisis Hotline: 103.220.7595 or 263-642-8518. MANUAL Your Guide to a Healthy manual is now on-line. Visit [email or web address] to download your free copy documented in this encounterBrown Memorial Hospital12-01-2023 NoteHNO ID: [id number] Author: Pat Wilkins MA Service: ? 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 Patient Identified by Name and : YES, via phone Outreach Outcome/Action OB/PEDS field updated Did you use a PCP flex slot to schedule this appointment? N/A Reason for Outreach [place] Payer: Payor: [place] [employer] / Plan: [employer]ICA[employer] [facility] / Product Type: Medicaid / Care Gap Reviewed:: N/A Reminder: Reminder note to check Health Maintenance for items below Health Maintenance items due: Hepatitis B Vaccine(1 of 3 - 3-dose series) Never done Covid-19 Vaccine(1) Never done Depression Assessment Never done Influenza Vaccine(1) due on 06/25/2023 Navigation Signature: Pat Hammonds MA September 24, 2023 12:51 [facility]12-01-2023 NotePatient Outreach (NETNAV) ERICA TORO ([id number]) 1995 F Date Time Provider Department 09/24/23 PAT WILKINS During your visit today, we recorded the following information about you: Pat Wilkins MA 09/24/2023 12:51 PM Signed POPULATION HEALTH NAVIGATION OUTREACH Action/FYI Called and 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 Patient Identified by Name and : YES, via phone Outreach Outcome/Action OB/PEDS field updated Did you use a PCP flex slot to schedule this appointment? N/A Reason for Outreach Payer: Payor: [place] [employer] / Plan: [employer]ICA[employer] [facility] / Product Type: Medicaid / Care Gap Reviewed:: N/A Reminder: Reminder note to check Health Maintenance for items below Health Maintenance items due: Hepatitis B Vaccine(1 of 3 - 3-dose series) Never done Covid-19 Vaccine(1) Never done Depression Assessment Never done Influenza Vaccine(1) due on 06/25/2023 Navigation Signature: Pat Hammonds MA September 24, 2023 12:51 PM Allergies As of Date: 09/24/2023 (No Known Allergies) Date Reviewed: 09/13/2023 Reviewed by: Pat Nguyễn MA - Fully Assessed Reason for Visit: Population Health Navigation Outreach [3910] Cmt: Peds/OB Prescriptions as of 09/24/2023 - Lactobacillus acidophilus (FLORAJEN ACIDOPHILUS) 20 billion cell cap Take 1 capsule by mouth once daily. - doxylamine (UNISOM, DOXYLAMINE,) 25 mg tab Take 1 tablet by mouth daily at bedtime. - [id number] ps-folate 1 29 mg iron- 1 mg chew Take 1 tablet by mouth once daily. - aspirin, enteric coated (ASPIRIN, ENTERIC COATED) 81 mg EC tablet Take 2 tablets by mouth once daily. Problem List As Of Date 09/24/2023 Noted Resolved Bleeding in early [O20.9] 2017 11/12/2017 Quit smoking [Z87.891] 2017 02/19/2023 History of thyroid disorder [Z86.39] 2017 Patient request for diagnostic testing [Z01.89] 2017 Atypical squamous cell changes of undetermined *11/12/2017 Normal in first trimester [Z34.91] 11/29/2017 12/15/2018 High risk due to maternal drug abuse,*11/29/2017 12/15/2018 Positive GBS test [B95.1] 05/13/2018 12/15/2018 Short interval between pregnancies affecting pr*12/08/2018 02/19/2023 History of bipolar disorder [Z86.59] 12/08/2018 Marijuana use [F12.90] 07/25/2019 02/19/2023 40 weeks gestation of [Z3A.40] 08/19/2019 09/08/2021 Intact amniotic membranes [Z34.90] 08/19/2019 02/19/2023 Threatened labor at term [O47.9] 08/19/2019 09/08/2021 Subchorionic hematoma in first trimester [O41.8*09/08/2021 02/19/2023 Vaginal bleeding during [O46.90] 09/08/2021 02/19/2023 Current with history of spontaneous a*02/15/2023 History of alcohol abuse [F10.11] 02/15/2023 History of posttraumatic stress disorder (PTSD)*02/18/2023 Supervision of high risk in first tri*02/19/2023 Date of last menstrual period (LMP) unknown [Z7*02/19/2023 ASCUS with positive high risk HPV cervical [R87*02/26/2023 Encounter for initial prescription of implantab*07/21/2023 Anemia complicating , third trimester *08/18/2023 Encounter Status:Closed by PAT [facility]ILKINS on 09/24/23[facility] 09-24-2023 History of Present illness Narrative* Pat Wilkins MA - 09/24/2023 12:49 PM EST POPULATION HEALTH NAVIGATION OUTREACH Action/FYI Called and 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 Patient Identified by Name and : YES, via phone Outreach Outcome/Action OB/PEDS field updated Did you use a PCP flex slot to schedule this appointment? N/A Reason for Outreach [place] Payer: Payor: [place] / Plan: [employer] MEDICAID OF [place] / Product Type: Medicaid / Care Gap Reviewed:: N/A Reminder: Reminder note to check Health Maintenance for items below Health Maintenance items due: Hepatitis B Vaccine(1 of 3 - 3-dose series) Never done Covid-19 Vaccine(1) Never done Depression Assessment Never done Influenza Vaccine(1) due on 06/25/2023 Navigation Signature: Pat Hammonds MA September 24, 2023 12:51 PM documented in this encounterBrown Memorial Hospital11-27-2023 Miscellaneous Notes* Quick Notes - Maritza Richard APRN.CNM - 09/20/2023 2:33 PM EST LEODAN-S: Erica Toro is a 27 year old female who presents at 37w3d with MEGAN:10/08/2023, by Ultrasound for a routine visit. Good FM. Denies headache, visual changes, chest pain, shortness of breath,vaginal bleeding, leakage of fluid, or dysuria. Feeling well, no complaints. O: See flow sheet Gen: No apparent distress Abd: Gravid, nontender ASSESSMENT/PLAN: 1. Supervision of high risk in third trimester 2. 37 weeks gestation of P: 1) Labor instructions reviewed and when to call 2) RTO in one week 3) Requested cervical exam 4) Taking iron when she remembers, continue supplement 5) GBS negative Maritza Richard APRN.CNM documented in this encounterBrown Memorial Hospital11-27-2023 Instructions* Patient Instructions* Félix Knight Cma - 09/20/2023 2:19 PM EST SEQUENTIAL SCREENINGS [facility] offers sequential screenings for women who are interested in screenings for chromosomal abnormalities and certain defects during a . The sequential screen combinesultrasound and blood tests to determine the risk of chromosomal abnormalities, including Down's Syndrome (Trisomy 21) and Trisomy 18, as well as open neural tube defects including spina bifida. Ultrasound examination is performed between 11 weeks and 13 weeks gestational age. Blood tests are drawn after the ultrasound and again later in the between 15 and 21 weeks gestational age. Please let your physician know if you are interested in this testing. It will require an appointment withour optical manufacturing technician. This is not an ultrasound performed by a physician in our office during a routine visit. SIGNS AND SYMPTOMS OF LABOR 1. Contractions every 10 minutes or more often 2. Clear, pink, or brownish fluid (water) leaking from vagina 3. Feeling that baby is pushing down, pressure 4. Low, dull backache 5. Cramps that feel like a period 6. Cramps with or without diarrhea If you notice any of the above symptoms, contact our office at [phone] and ask to speak with anurse. After hours, you can call doctors registry at [phone] OR call [facility] at [phone] ask to have the doctor automation qtp tester paged. If you consider this an emergency, dial 9-1-1 or go to your nearest emergency department. NEED HELP? Are you dealing with a violent or abusive relationship? Are you a victim of rape or sexual assult? Call [facility] ([place]) 24 hour Crisis Hotline: 170.637.1259 or 752-958-2214. MANUAL Your Guide to a Healthy manual is now on-line. Visit [email or web address] to download your free copy documented in this encounterBrown Memorial Hospital11-21-2023 Miscellaneous Notes* Telephone Encounter - Kari Balderas RN - 09/14/2023 8:21 AM EST Patient notified. Kari Balderas RN * Telephone Encounter - Dulce Shannon APRN.CNP - 09/14/2023 8:04 AM EST BV positive. To treat with Flagyl 500mg PO BID for 7 days. 1) No alcohol during treatment and for 24 hours after last dose. 2) No intercourse during treatment. 3) Probiotic by mouth once daily for 30 days or as needed. Dulce Shannon APRN.CNP documented in this encounterBrown Memorial Hospital11-20-2023 Miscellaneous Notes* Quick Notes - Dulce Shannon APRN.CNP - 09/13/2023 11:53 AM EST RM-Pt doing well. Denies vaginal Bleeding, Leaking fluid, or regular Contractions. Pt reports good movement. Vaginal discharge greenish in color with some itching, along with some pelvic pressure. Denies any dysuria or concerns for STDs. Physical Exam: Gen: no apparent distress Abd: soft, Gravid. Non tender to palpation. See flow sheet +yeast infection based on exam BV/yeast swab collect GBS done RTO 1 week or sooner if needed Reviewed labor precautions Recommended using Monistat 7 Will notify patient of test results. Dulce Shannon APRN.CNP documented in this encounterBrown Memorial Hospital11-20-2023 Instructions* Patient Instructions* Pat NguyễnCYNTHIA - 09/13/2023 11:20 AM EST SEQUENTIAL SCREENINGS [facility] offers sequential screenings for women who are interested in screenings for chromosomal abnormalities and certain defects during a . The sequential screen combinesultrasound and blood tests to determine the risk of chromosomal abnormalities, including Down's Syndrome (Trisomy 21) and Trisomy 18, as well as open neural tube defects including spina bifida. Ultrasound examination is performed between 11 weeks and 13 weeks gestational age. Blood tests are drawn after the ultrasound and again later in the between 15 and 21 weeks gestational age. Please let your physician know if you are interested in this testing. It will require an appointment withour optical manufacturing technician. This is not an ultrasound performed by a physician in our office during a routine visit. SIGNS AND SYMPTOMS OF LABOR 1. Contractions every 10 minutes or more often 2. Clear, pink, or brownish fluid (water) leaking from vagina 3. Feeling that baby is pushing down, pressure 4. Low, dull backache 5. Cramps that feel like a period 6. Cramps with or without diarrhea If you notice any of the above symptoms, contact our office at [phone] and ask to speak with anurse. After hours, you can call doctors registry at [phone] OR call [facility] at [phone] ask to have the doctor automation qtp tester paged. If you consider this an emergency, dial 9-1-1 or go to your nearest emergency department. NEED HELP? Are you dealing with a violent or abusive relationship? Are you a victim of rape or sexual assult? Call [facility] ([place]) 24 hour Crisis Hotline: 641.787.5430 or 296-124-9138. MANUAL Your Guide to a Healthy manual is now on-line. Visit [email or web address] to download your free copy documented in this encounterBrown Memorial Hospital11-09-2023 Miscellaneous Notes* Telephone Encounter - Anahy Wood RN - 09/02/2023 1:52 PM EST Patient notified. Patient states she feels "fine so far today." She will call with worsening or newsymptoms again. Anahy Wood RN * Telephone Encounter - Lon Aranda APRN.CNP - 09/02/2023 12:48 PM EST Please notify patient: Protein creatinine ratio is WNL. How is she feeling? Lon Aranda APRN.NGUYEN documented in this encounterBrown Memorial Hospital11-09-2023 Miscellaneous Notes* Telephone Encounter - Kari Balderas RN - 09/02/2023 9:46 AM EST Patient notified. States she has been taking iron supplement, but not consistently. Reviewed instructions below. Aware our office will contact her with protein creatinine ratio results. Kari Balderas RN * Telephone Encounter - Anahy Wood RN - 09/01/2023 4:58 PM EST Left message for patient to call office. Anahy Wood RN * Telephone Encounter - Lon Aranda APRN.CNP - 09/01/2023 4:45 PM EST Please notify patient: Labs are not indicative of pre eclampsia so far. Still waiting on protein creatinine ratio. Hgb 10.5, which is higher than her 10.0 value about a month ago. I recommend taking iron supplement every other day. Ferrous Sulfate 325mg PO once every other day -Take with source of Vitamin C -Avoid taking with food I also recommend staying hydrated and restoring electrolytes with a Body [place] Lyte. Let me know if there are any questions! Lon Aranda APRN.CNP documented in this encounterBrown Memorial Hospital11-08-2023 Miscellaneous Notes* Quick Notes - Lon Aranda APRN.CNP - 09/01/2023 2:50 PM EST S: Erica is a 27 year old female who presents at 34w5d for a routine visit. Feeling movement. Denies chest pain, shortness of breath, vaginal bleeding, leakage of fluid, or dysuria. Feeling well, no complaints. Reports very painful contractions. Irregular and random. Would like a cervical exam. Reports that last night she had a migraine that had started 2 days prior, visual changes, unilateral arm tingling and numbness, and difficulty speaking. O: See flow sheet Gen: No apparent distress Abd: Gravid, nontender, S=D ASSESSMENT/PLAN: 1. Supervision of high risk in third trimester - ICD9: V23.9, ICD10: O09.93 (primary diagnosis) - URINE OB DIP B/O - COMP METABOLIC PANEL - PROTEIN CREATININE RATIO - CBC - TSH BLD - T4 FREE/FREE THYROX - LD LACTATE DEHYDRO - OBSTETRIC ULTRASOUND WHI 2. 34 weeks gestation of - ICD9: V22.2, ICD10: Z3A.34 - Reviewed GBS for next visit at 36 weeks 3. History of thyroid disease - ICD9: V12.29, ICD10: Z86.39 - Occurred with prior around 6 months gestation - TSH BLD - T4 FREE/FREE THYROX - Growth ultrasound: Patient concerned about small size of abdomen. Measuring appropriately, reassurance provided. Growth to assess. 4. Migraine with aura without status migrainosus - ICD9: 346.01, ICD10: G43.119 - BP WNL - Rule out pre eclampsia with CMP, protein creatinine ratio, CBC, LDH - Consult to neurology - Headache has subsided - To notify if this event occurs again - POC reviewed with Dr. Gold 5. Anemia complicating , third trimester - ICD9: 648.23, 285.9, ICD10: O99.013 - Noted with 28 week labs - Has only taken 1 dose of iron - With migraine, CBC ordered today to assess for worsening anemia - May need iron transfusions depending on result 6. Collin Hick's contraction - ICD9: 644.10, ICD10: O47.9 - Painful, random - Hydration encouraged - 1 cm, 60%, -2 - PTL precautions reviewed. Lon Aranda APRN.CNP Medical Decision Making: Problems: Moderate: New problem with uncertain prognosis Data: Unique test(s) ordered: 3+ Risk: Minimal: Minimal risk from testing/treatment Medical Decision Making Level: 4 - Moderate documented in this encounterBrown Memorial Hospital11-08-2023 Instructions* Patient Instructions* s Cha Zaman - 09/01/2023 2:10 PM EST SEQUENTIAL SCREENINGS [facility] offers sequential screenings for women who are interested in screenings for chromosomal abnormalities and certain defects during a . The sequential screen combinesultrasound and blood tests to determine the risk of chromosomal abnormalities, including Down's Syndrome (Trisomy 21) and Trisomy 18, as well as open neural tube defects including spina bifida. Ultrasound examination is performed between 11 weeks and 13 weeks gestational age. Blood tests are drawn after the ultrasound and again later in the between 15 and 21 weeks gestational age. Please let your physician know if you are interested in this testing. It will require an appointment withour optical manufacturing technician. This is not an ultrasound performed by a physician in our office during a routine visit. SIGNS AND SYMPTOMS OF LABOR 1. Contractions every 10 minutes or more often 2. Clear, pink, or brownish fluid (water) leaking from vagina 3. Feeling that baby is pushing down, pressure 4. Low, dull backache 5. Cramps that feel like a period 6. Cramps with or without diarrhea If you notice any of the above symptoms, contact our office at [phone] and ask to speak with anurse. After hours, you can call [facility] at [phone] OR call [facility] at [phone] ask to have the doctor automation qtp tester paged. If you consider this an emergency, dial 9-1-9 or go to your nearest emergency department. NEED HELP? Are you dealing with a violent or abusive relationship? Are you a victim of rape or sexual assult? Call [facility] ([place]) 24 hour Crisis Hotline: 208.200.5605 or 104-020-3417. MANUAL Your Guide to a Healthy manual is now on-line. Visit [email or web address] to download your free copy documented in this encounterBrown Memorial Hospital10-25-2023 History of Past illness Narrative* Problem Noted Date Diagnosed Date Resolved Date Anemia complicating pregnanc y, third trimester 08/18/2023 11/24/2023 Current with histo ry of spontaneous during prior 02/15/2023 11/24/19 24 Overview: 02/15/2023atient had a history of a miscarriage August 2021. Denies any bleeding pain or cramping this .TKRN Subchorionic hematoma in first trimester 09/08/2021 02/19/2023 Overview: 09/08/21- [facility] ED US report. Cortney Cash APRN.CNM Vaginal bleeding during 09/08/2021 02/19/2023 40 weeks gestation of 08/19/2019 09/08/2021 Overview: - Denies complications during this - last office check pt states she was 1 cm dilated - Endorsing leakage of fluid - Nitrazine/Ferning Negative - MADISON 21cm Per Dr. Beckwith - Plan to give pt 1 hour and recheck cervical width Intact amniotic membranes 08/19/2019 Threatened labor at term 08/19/2019 Marijuana use 07/25/2019 02/19/2023 Overview: 07/25/19: + LAZARO Clark MD Short interval between pregn ancies affecting , antepartum 12/08/2018 02/19/2023 Overview: 12/08/2018Patient delivered her last child 03/30/2018. States this is a planned .TKRN Positive GBS test 05/13/2018 12/15/2018 Normal in first trimester 11/29/2017 12/15/2018 High risk due to m aternal drug abuse, first trimester 11/29/2017 12/15/2018 Overview: 11/29/17-Positive urine tox screen for marijuana use. Patient had no further use after positive test. Reviewed risks to self and baby. Denies any further use. Retest in 3rd trimester and during labor. Maritza Richard CNM Bleeding in early 2017 11/12/2017 Overview: 2017 Patient called in 09/29/2017 for vaginal bleeding during intercourse. She had serial quantitative HCG's. She denies any bleeding since then. She has an ultrasound scheduled after this appointment today.TKRN Quit smoking 2017 02/19/2023 Overview: 2017 Pt recently quit smoking 09/04/2017. Discussed risks of smoking during and advised pt to continue not smoking. documented as of this encounter (statuses as of 12/21/2023) [facility] History of Past illness Narrative* Problem Noted Date Diagnosed Date Resolved Date Anemia complicating pregnanc y, third trimester 08/18/2023 11/24/2023 Current with histo ry of spontaneous during prior 02/15/2023 11/24/19 24 Overview: 02/15/2023atient had a history of a miscarriage August 2021. Denies any bleeding pain or cramping this .TKRN Subchorionic hematoma in first trimester 09/08/2021 02/19/2023 Overview: 09/08/21- [facility] ED US report. Cortney Cash APRN.CNM Vaginal bleeding during 09/08/2021 02/19/2023 40 weeks gestation of 08/19/2019 09/08/2021 Overview: - Denies complications during this - last office check pt states she was 1 cm dilated - Endorsing leakage of fluid - Nitrazine/Ferning Negative - MADISON 21cm Per Dr. Beckwith - Plan to give pt 1 hour and recheck cervical width Intact amniotic membranes 08/19/2019 Threatened labor at term 08/19/2019 Marijuana use 07/25/2019 02/19/2023 Overview: 07/25/19: + LAZARO Clark MD Short interval between pregn ancies affecting , antepartum 12/08/2018 02/19/2023 Overview: 12/08/2018Patient delivered her last child 03/30/2018. States this is a planned .TKRN Positive GBS test 05/13/2018 12/15/2018 Normal in first trimester 11/29/2017 12/15/2018 High risk due to m aternal drug abuse, first trimester 11/29/2017 12/15/2018 Overview: 11/29/17-Positive urine tox screen for marijuana use. Patient had no further use after positive test. Reviewed risks to self and baby. Denies any further use. Retest in 3rd trimester and during labor. Maritza Richard CNM Bleeding in early 2017 11/12/2017 Overview: 2017 Patient called in 09/29/2017 for vaginal bleeding during intercourse. She had serial quantitative HCG's. She denies any bleeding since then. She has an ultrasound scheduled after this appointment today.TKRN Quit smoking 2017 02/19/2023 Overview: 2017 Pt recently quit smoking 09/04/2017. Discussed risks of smoking during and advised pt to continue not smoking. documented as of this encounter (statuses as of 01/03/2024) [facility] History of Past illness Narrative* Problem Noted Date Diagnosed Date Resolved Date Anemia complicating pregnanc y, third trimester 08/18/2023 11/24/2023 Current with histo ry of spontaneous during prior 02/15/2023 11/24/19 Overview: 02/15/2023atient had a history of a miscarriage August 2021. Denies any bleeding pain or cramping this .TKRN Subchorionic hematoma in first trimester 09/08/2021 02/19/2023 Overview: 09/08/21- [facility] ED US report. Cortney Cash APRN.CNM Vaginal bleeding during 09/08/2021 02/19/2023 40 weeks gestation of 08/19/2019 09/08/2021 Overview: - Denies complications during this - last office check pt states she was 1 cm dilated - Endorsing leakage of fluid - Nitrazine/Ferning Negative - MADISON 21cm Per Dr. Beckwith - Plan to give pt 1 hour and recheck cervical width Intact amniotic membranes 08/19/2019 Threatened labor at term 08/19/2019 Marijuana use 07/25/2019 02/19/2023 Overview: 07/25/19: + LAZARO Clark MD Short interval between pregn ancies affecting , antepartum 12/08/2018 02/19/2023 Overview: 12/08/2018Patient delivered her last child 03/30/2018. States this is a planned .TKRN Positive GBS test 05/13/2018 12/15/2018 Normal in first trimester 11/29/2017 12/15/2018 High risk due to m aternal drug abuse, first trimester 11/29/2017 12/15/2018 Overview: 11/29/17-Positive urine tox screen for marijuana use. Patient had no further use after positive test. Reviewed risks to self and baby. Denies any further use. Retest in 3rd trimester and during labor. Maritza Richard CNM Bleeding in early 2017 11/12/2017 Overview: 2017 Patient called in 09/29/2017 for vaginal bleeding during intercourse. She had serial quantitative HCG's. She denies any bleeding since then. She has an ultrasound scheduled after this appointment today.TKRN Quit smoking 2017 02/19/2023 Overview: 2017 Pt recently quit smoking 09/04/2017. Discussed risks of smoking during and advised pt to continue not smoking. documented as of this encounter (statuses as of 01/18/2024) [facility] Miscellaneous Notes* Quick Notes - Cortney Cash APRN.ARCADIOM - 08/18/2023 10:39 AM EDT S: Erica Toro is a 27 year old female who presents at 32.5 weeks gestation for a routine visit. She is concerned about appetite and food aversions. Increased amount of hours at work and standing on her feet a lot. Suggested compression stockings and support belt. Unable to take oral iron due to it making her sick to her stomach. Trying to take with food. Denies headache, visual changes, chest pain, shortness of breath, vaginal bleeding, leakage of fluid, or dysuria. O: See flow sheet Gen: No apparent distress Abd: Gravid, nontender S=D ASSESSMENT/PLAN: 1. 32 weeks gestation of - ICD9: V22.2, ICD10: Z3A.32 (primary diagnosis) - URINE OB DIP B/O 2. Encounter for supervision of other normal in third trimester - ICD9: V22.1, ICD10: Z34.83 3. Anemia - Try eating small meals, adding in protein shakes - Won't repeat CBC today due to not taking oral iron - Discussed possible iron studies and/or IV FE if needed - She will try to be more diligent on taking oral iron and will repeat CBC in 3- 4 weeks - PTL precautions reviewed and when to call - RTO 2 weeks Cortney Cash APRN.CNM documented in this encounterBrown Memorial Hospital10-25-2023 Instructions* Patient Instructions* Pat Nguyễn MA - 08/18/2023 10:22 AM EDT SEQUENTIAL SCREENINGS [facility] offers sequential screenings for women who are interested in screenings for chromosomal abnormalities and certain defects during a . The sequential screen combinesultrasound and blood tests to determine the risk of chromosomal abnormalities, including Down's Syndrome (Trisomy 21) and Trisomy 18, as well as open neural tube defects including spina bifida. Ultrasound examination is performed between 11 weeks and 13 weeks gestational age. Blood tests are drawn after the ultrasound and again later in the between 15 and 21 weeks gestational age. Please let your physician know if you are interested in this testing. It will require an appointment withour optical manufacturing technician. This is not an ultrasound performed by a physician in our office during a routine visit. SIGNS AND SYMPTOMS OF LABOR 1. Contractions every 10 minutes or more often 2. Clear, pink, or brownish fluid (water) leaking from vagina 3. Feeling that baby is pushing down, pressure 4. Low, dull backache 5. Cramps that feel like a period 6. Cramps with or without diarrhea If you notice any of the above symptoms, contact our office at [phone] and ask to speak with anurse. After hours, you can call doctors registry at [phone] OR call [facility] at [phone] ask to have the doctor automation qtp tester paged. If you consider this an emergency, dial 9-1-5 or go to your nearest emergency department. NEED HELP? Are you dealing with a violent or abusive relationship? Are you a victim of rape or sexual assult? Call [facility] [place] [facility] 24 hour Crisis Hotline: 305.491.3444 or 109-747-5560. MANUAL Your Guide to a Healthy manual is now on-line. Visit [email or web address] to download your free copy documented in this encounterBrown Memorial Hospital09-29-2023 Miscellaneous Notes* Telephone Encounter - Anahy Wood RN - 07/23/2023 4:59 PM EDT Patient did view [employer] message at 10:34 AM on 07/23/2023. * Telephone Encounter - Priyanka Doe LPN - 07/22/2023 2:23 PM EDT Message left asking pt to call the office for results. Pt was also sent [employer] message with results and further orders. Will await response from pt. Priyanka Doe LPN * Telephone Encounter - Priyanka Doe LPN - 07/22/2023 2:20 PM EDT ----- Message from Cortney Cash APRN.CNM sent at 07/22/2023 12:53 PM EDT ----- Please notify patient that she is anemic. 1. Increase iron rich foods in diet (I.e. Lean red meats, green leafy vegetables, beans/lentils or dried fruits) 2. Start an iron supplement now and take every other day or MWF. I recommend Ferrous Sulfate 325 mgby mouth 3. Take iron with a source of Vitamin C (orange juice) to help with absorption. 4. Avoid coffee, tea, milk at time the supplement is taken. 5. Will need repeat CBC in 4 weeks. Cortney Cash APRN.CNM documented in this encounterBrown Memorial Hospital09-27-2023 NoteHNO ID: [id number] Author: Marilyn Darden Ma Service: ? Author Type: ? Type: Progress Notes Filed: 07/21/2023 2:19 PM Note Text: Patient identified by name and date of . Erica Toro presents today for a vaccination of Tdap. Patient denies an allergy to latex: yes Patient denies a severe (life-threatening) allergy to a previous dose of Tdap, DTP, DTaP, DT or Td vaccine. Yes Patient denies history of epilepsy or neurological problems: Yes Patient is afebrile and denies being moderately or severely ill: Yes Patient denies history of Guillain-[place] Syndrome (a severe paralytic illness): Yes Tdap Adacel injection was given without incident. See immunizations for details of immunizations administered today. VIS sheet provided: Yes Provider Vandana was present in office at time of injection. Marilyn Darden [facility]09-18-2023 Miscellaneous Notes* Quick Notes - Gracy Rivas MD - 07/12/2023 1:58 PM EDT DM- had some light bleeding yesterday and today with mild cramping- she describes no pain with it. Denies LOF. Pt reports good FM. Denies Gautier. Denies abnormal discharge or odor. Exam: Gen: female in NAD Abd: soft, gravid, non tender Speculum; +thick white dc c/w yeast. No blood in vault, no active bleeding. Cervix appears thick and closed. VE: C/T/H @ 27.3 weeks- Vaginal bleeding 1) yeast infection- Monistat 7 OTC 2) PO fluids 3) Urine culture 4) S/sx PTL reviewed Gracy Clark MD documented in this encounterBrown Memorial Hospital09-18-2023 Instructions* Patient Instructions* Pat Nguyễn MA - 07/12/2023 1:13 PM EDT SEQUENTIAL SCREENINGS [facility] offers sequential screenings for women who are interested in screenings for chromosomal abnormalities and certain defects during a . The sequential screen combinesultrasound and blood tests to determine the risk of chromosomal abnormalities, including Down's Syndrome (Trisomy 21) and Trisomy 18, as well as open neural tube defects including spina bifida. Ultrasound examination is performed between 11 weeks and 13 weeks gestational age. Blood tests are drawn after the ultrasound and again later in the between 15 and 21 weeks gestational age. Please let your physician know if you are interested in this testing. It will require an appointment withour optical manufacturing technician. This is not an ultrasound performed by a physician in our office during a routine visit. SIGNS AND SYMPTOMS OF LABOR 1. Contractions every 10 minutes or more often 2. Clear, pink, or brownish fluid (water) leaking from vagina 3. Feeling that baby is pushing down, pressure 4. Low, dull backache 5. Cramps that feel like a period 6. Cramps with or without diarrhea If you notice any of the above symptoms, contact our office at [phone] and ask to speak with anurse. After hours, you can call doctors registry at [phone] OR call [facility] at [phone] ask to have the doctor automation qtp tester paged. If you consider this an emergency, dial 9-1-0 or go to your nearest emergency department. NEED HELP? Are you dealing with a violent or abusive relationship? Are you a victim of rape or sexual assult? Call [facility] ([place]) 24 hour Crisis Hotline: 397.427.5414 or 328-525-0248. MANUAL Your Guide to a Healthy manual is now on-line. Visit [email or web address] to download your free copy documented in this encounterBrown Memorial Hospital09-18-2023 Miscellaneous Notes* Telephone Encounter - Priyanka Doe LPN - 07/12/2023 12:10 PM EDT Pt notified and assisted to schedule appointment to be seen today. Priyanka Doe LPN * Telephone Encounter - Leonardo Upton MD - 07/12/2023 12:03 PM EDT Can come in at 1.20 for eval * Telephone Encounter - Anahy Wood RN - 07/12/2023 11:26 AM EDT 27w3d Calling with pink spotting this morning. Noticed few times with wiping now. Having jonathan soto every few minutes. Not painful and she doesn't notice then unless she feels abdomen and notices it is tightening. No leaking fluid. Good movement. No recent intercourse. Please advise. Anahy Wood RN documented in this encounterBrown Memorial Hospital08-30-2023 Miscellaneous Notes* Quick Notes - Cortney Cash APRN.CNM - 06/23/2023 2:39 PM EDT Erica Toro is a 27 year old female who presents at 24w5d Estimated Date of Delivery: 10/08/23for a routine visit. Good movement. Denies headache, visual changes, chest pain, shortness ofbreath, vaginal bleeding, leakage of fluid, or dysuria. Feeling well, no complaints. Size equal to dates. 16 lbs TWG. PTL precautions reviewed. RTC in 4 weeks for GENESIS with GCT. Cortney Cash APRN.CNM documented in this encounterBrown Memorial Hospital08-30-2023 Instructions* Patient Instructions* Félix Knight Cma - 06/23/2023 2:25 PM EDT SEQUENTIAL SCREENINGS [facility] offers sequential screenings for women who are interested in screenings for chromosomal abnormalities and certain defects during a . The sequential screen combinesultrasound and blood tests to determine the risk of chromosomal abnormalities, including Down's Syndrome (Trisomy 21) and Trisomy 18, as well as open neural tube defects including spina bifida. Ultrasound examination is performed between 11 weeks and 13 weeks gestational age. Blood tests are drawn after the ultrasound and again later in the between 15 and 21 weeks gestational age. Please let your physician know if you are interested in this testing. It will require an appointment withour optical manufacturing technician. This is not an ultrasound performed by a physician in our office during a routine visit. SIGNS AND SYMPTOMS OF LABOR 1. Contractions every 10 minutes or more often 2. Clear, pink, or brownish fluid (water) leaking from vagina 3. Feeling that baby is pushing down, pressure 4. Low, dull backache 5. Cramps that feel like a period 6. Cramps with or without diarrhea If you notice any of the above symptoms, contact our office at [phone] and ask to speak with anurse. After hours, you can call doctors registry at [phone] OR call [facility] at [phone] ask to have the doctor automation qtp tester paged. If you consider this an emergency, dial 1-0-8 or go to your nearest emergency department. NEED HELP? Are you dealing with a violent or abusive relationship? Are you a victim of rape or sexual assult? Call [facility] ([place]) 24 hour Crisis Hotline: 921.375.7916 or 238-157-2529. MANUAL Your Guide to a Healthy manual is now on-line. Visit [email or web address] to download your free copy documented in this encounterBrown Memorial Hospital08-09-2023 Miscellaneous Notes* Telephone Encounter - Kari Balderas RN - 06/02/2023 4:50 PM EDT Faxed * Telephone Encounter - Kari Balderas RN - 06/02/2023 4:21 PM EDT 21w5d Received breast pump order from [facility]. To CP to sign. Kari Balderas RN documented in this encounterBrown Memorial Hospital08-02-2023 Miscellaneous Notes* Quick Notes - Gracy Rivas MD - 05/26/2023 2:07 PM EDT DM-Pt doing well. Denies vaginal Bleeding, Leaking fluid, or regular Contractions. Pt reports good movement Physical Exam: Gen: female in no apparent distress Abd: soft, Gravid. Non tender to palpation. See flow sheet A/P: @ 20.5 weeks 1) Anatomy us today 2) AFP today 3) RTO 4 wks Gracy Clark MD documented in this encounterBrown Memorial Hospital08-02-2023 Instructions* Patient Instructions* Marilyn Darden Ma - 05/26/2023 1:46 PM EDT SEQUENTIAL SCREENINGS [facility] offers sequential screenings for women who are interested in screenings for chromosomal abnormalities and certain defects during a . The sequential screen combinesultrasound and blood tests to determine the risk of chromosomal abnormalities, including Down's Syndrome (Trisomy 21) and Trisomy 18, as well as open neural tube defects including spina bifida. Ultrasound examination is performed between 11 weeks and 13 weeks gestational age. Blood tests are drawn after the ultrasound and again later in the between 15 and 21 weeks gestational age. Please let your physician know if you are interested in this testing. It will require an appointment withour optical manufacturing technician. This is not an ultrasound performed by a physician in our office during a routine visit. SIGNS AND SYMPTOMS OF LABOR 1. Contractions every 10 minutes or more often 2. Clear, pink, or brownish fluid (water) leaking from vagina 3. Feeling that baby is pushing down, pressure 4. Low, dull backache 5. Cramps that feel like a period 6. Cramps with or without diarrhea If you notice any of the above symptoms, contact our office at [phone] and ask to speak with anurse. After hours, you can call [facility] registry at [phone] OR call [facility] at [phone] ask to have the doctor automation qtp tester paged. If you consider this an emergency, dial 9-1-1 or go to your nearest emergency department. NEED HELP? Are you dealing with a violent or abusive relationship? Are you a victim of rape or sexual assult? Call [facility] ([place] 24 hour Crisis Hotline: 829.786.8504 or 565-911-8681. MANUAL Your Guide to a Healthy manual is now on-line. Visit [email or web address] to download your free copy documented in this encounterBrown Memorial Hospital06-28-2023 Miscellaneous Notes* Quick Notes - Maritza Richard APRN.CNM - 04/21/2023 3:39 PM EDT LEODAN-S: Erica Toro is a 27 year old female who presents at 15w5d with MEGAN: 10/08/2023, by Ultrasound for a routine visit. Denies headache, visual changes, chest pain, shortness of breath, vaginalbleeding, leakage of fluid, or dysuria. Feeling well, no complaints. O: See flow sheet Gen: No apparent distress Abd: Gravid, nontender ASSESSMENT/PLAN: 1. 15 weeks gestation of P: 1) PTL precautions reviewed and when to call 2) RTO in 4 weeks 3) AFP next visit 4) Anatomy US at 20 weeks 5) Colposcopy completed 6) Continue ASA and PNV Maritza Richard APRN.CNM documented in this encounterBrown Memorial Hospital06-28-2023 Instructions* Patient Instructions* Marilyn Darden Ma - 04/21/2023 3:30 PM EDT SEQUENTIAL SCREENINGS [facility] offers sequential screenings for women who are interested in screenings for chromosomal abnormalities and certain defects during a . The sequential screen combinesultrasound and blood tests to determine the risk of chromosomal abnormalities, including Down's Syndrome (Trisomy 21) and Trisomy 18, as well as open neural tube defects including spina bifida. Ultrasound examination is performed between 11 weeks and 13 weeks gestational age. Blood tests are drawn after the ultrasound and again later in the between 15 and 21 weeks gestational age. Please let your physician know if you are interested in this testing. It will require an appointment withour optical manufacturing technician. This is not an ultrasound performed by a physician in our office during a routine visit. SIGNS AND SYMPTOMS OF LABOR 1. Contractions every 10 minutes or more often 2. Clear, pink, or brownish fluid (water) leaking from vagina 3. Feeling that baby is pushing down, pressure 4. Low, dull backache 5. Cramps that feel like a period 6. Cramps with or without diarrhea If you notice any of the above symptoms, contact our office at [phone] and ask to speak with anurse. After hours, you can call doctors registry at [phone] OR call [facility] at [phone] ask to have the doctor automation qtp tester paged. If you consider this an emergency, dial 9-3 or go to your nearest emergency department. NEED HELP? Are you dealing with a violent or abusive relationship? Are you a victim of rape or sexual assult? Call [facility] ([place]) 24 hour Crisis Hotline: 169.543.5744 or 111-194-3492. MANUAL Your Guide to a Healthy manual is now on-line. Visit [email or web address] to download your free copy documented in this encounterBrown Memorial Hospital06-12-2023 NoteHNO ID: [id number] Author: Leonardo Upton MD Service: ? Author Type: Physician Type: Progress Notes Filed: 04/05/2023 5:35 PM Note Text: Child Care Nurse offered: Patient declines. Maldonado is a 27 year old who presents today for a colposcopy. The patient's last pap smear was ASCUS with positive HPV from January 2023. Patient has a history of abnormal pap: No. The patient has had prior treatment: none. test: n/a UNIVERSAL PROTOCOL / SAFETY CHECKLIST Procedure to be Performed: Colposcopy Sign In: A Moment of CARE was completed. Personnel directly involved with the procedure wore the appropriate PPE (Personal Protective Equipment). Patient/Surrogate Stated/Verified: PATIENT VERIFIED(optional for EMERGENT procedures): Patient name, Date of , Relevant allergies, and The intended procedure Time Out Communication: Intended patient and procedure match the source documents. Consent documented and matches the intended procedure. Sign Out: SIGN OUT (optional for EMERGENT procedures): No specimen collected. All instruments, equipment, possible retained foreign bodies accounted for. Post-procedure follow-up management communicated and Plan of Care Visit completed when applicable. PROCEDURE: EXTERNAL GENITALIA: Normal in appearance without lesions VAGINA: Normal in appearance without lesions CERVIX: Speculum placed in vagina and excellent visualization of cervix achieved. Cervix swabbed x 3 with 3% acetic acid solution. Cervix grossly normal. Squamocolumnar junction visualized. Minimal acetowhite changes noted 6 o'clock. BIOPSY: Not done. ECC: not done HEMOSTASIS: Obtained with n/a Procedure Summary: Patient tolerated procedure well and colposcopy was adequate. ASSESSMENT: HPV effect and mild dysplasia PLAN: Post-procedure instructions reviewed and written material given to the patient. Follow up . +FHT today. Leonardo Upton, DOCMari[facility]06-01-2023 Miscellaneous Notes* Quick Notes - Cortney Cash APRN.CNM - 03/25/2023 3:34 PM EDT Erica Toro is a 27 year old female who presents at 11w6d for a routine visit. Just completed NT US- desires MaterniT 21 plus screening with labs today. Reviewed recommendation for colposcopy and patient will schedule for next visit. Denies headache, visual changes, chest pain, shortness of breath, vaginal bleeding, leakage of fluid, or dysuria. Feeling well, no complaints. Feels like mood is stable and good at this time. 1 lb. TWG. PTL/ Bleeding precautions reviewed. RTC in 4 weeks for GENESIS with colposcopy. Cortney Cash APRN.CNM documented in this encounterBrown Memorial Hospital06-01-2023 Instructions* Patient Instructions* Félix Knight Cma - 03/25/2023 2:43 PM EDT SEQUENTIAL SCREENINGS [facility] offers sequential screenings for women who are interested in screenings for chromosomal abnormalities and certain defects during a . The sequential screen combinesultrasound and blood tests to determine the risk of chromosomal abnormalities, including Down's Syndrome (Trisomy 21) and Trisomy 18, as well as open neural tube defects including spina bifida. Ultrasound examination is performed between 11 weeks and 13 weeks gestational age. Blood tests are drawn after the ultrasound and again later in the between 15 and 21 weeks gestational age. Please let your physician know if you are interested in this testing. It will require an appointment withour optical manufacturing technician. This is not an ultrasound performed by a physician in our office during a routine visit. SIGNS AND SYMPTOMS OF LABOR 1. Contractions every 10 minutes or more often 2. Clear, pink, or brownish fluid (water) leaking from vagina 3. Feeling that baby is pushing down, pressure 4. Low, dull backache 5. Cramps that feel like a period 6. Cramps with or without diarrhea If you notice any of the above symptoms, contact our office at [phone] and ask to speak with anurse. After hours, you can call doctors registry at [phone] OR call [facility] at [phone] ask to have the doctor automation qtp tester paged. If you consider this an emergency, dial 2-1-7 or go to your nearest emergency department. NEED HELP? Are you dealing with a violent or abusive relationship? Are you a victim of rape or sexual assult? Call [facility] ([place]) 24 hour Crisis Hotline: 791.732.2968 or 612-258-7879. MANUAL Your Guide to a Healthy manual is now on-line. Visit [email or web address] to download your free copy documented in this encounterBrown Memorial Hospital05-09-2023 Miscellaneous Notes* Telephone Encounter - Marii Gonsales RN - 03/02/2023 10:43 AM EDT Attempted to contact patient again. No answer and unable to leave a message as voicemail box is notset up. Patient has not read MyChart message either. Upcoming appointment notes updated to schedulecolposcopy. Marii Gonsales RN * Telephone Encounter - Marii Gonsales RN - 02/26/2023 11:45 AM EDT Attempted to contact patient, no answer and unable to leave a message. LiveLoophart message sent to patient. Marii Gonsales RN * Telephone Encounter - Marii Gonsales RN - 02/26/2023 11:44 AM EDT ----- Message from Maritza Richard APRN.CNM sent at 02/26/2023 11:35 AM EDT ----- Please notify patient ASCUS with positive HR HPV. Will need colposcopy with physician after 12 weeks. Thank you, Maritza Richard APRN.CNM documented in this encounterBrown Memorial Hospital04-28-2023 NoteHNO ID: [id number] Author: Maritza Richard APRN.CNM Service: ? Author Type: Electric Clock Mechanic Type: Progress Notes Filed: 02/19/2023 7:13 PM Note Text: OB point of care ultrasound was performed. See imaging tab for details. Maritza Richard APRN.[facility]NA[facility]04-27-2023 NoteHNO ID: [id number] Author: Maritza Richard APRN.CNM Service: ? Author Type: Electric Clock Mechanic Type: Progress Notes Filed: 02/19/2023 7:17 PM Note Text: INITIAL OB ASSESSMENT OB Provider: Maritza Richard CNM HPI: rEica is a 27 year old White here to establish Obstetrical Care. No LMP recorded (lmp unknown). Patient is . from OB Dating Form. Cycles irregular, monthly, spotting to heavy. was unplanned but accepted Complaints: vaginal bleeding pink no clots or flow, intercourse the day prior. Nausea and vomiting, and emesis x 2 and coping. OB History T3 L3 SAB1 IAB0 Ectopic0 Multiple0 Live Births3 Previous history: Prior : never History of 4th degree laceration: No History of shoulder dystocia: No History of Hypertensive disorders including pre-eclampsia, chronic hypertension or gestational hypertension: No History of gestational diabetes: No Patient's Risk Screening for delivery: None MEDICAL/PSYCHOSOCIAL HISTORY: History of hemorrhage or bleeding concerns: No Thyroid Disease: Yes History of chronic hypertension: No History of pre-existing diabetes: No ABO/RH(D) Date Value Ref Range Status 03/02/2019 A POSITIVE Final BMI 25.53 kg/(m2) History of abnormal pap: Yes, 2018 ASCUS, HPV other HR, 2019 ASCUS, HPV other HR Prior treatment for cervical dysplasia: none. History of STDs: chlamydia and HPV Tobacco use: No Caffeine use: No Drug use: No Alcohol use: No Multivitamin with Folic acid: Yes Baptism or heritage: No Would refuse blood transfusion if medically necessary: No Are you currently employed? No Do you have any history of depression, anxiety, PTSD, eating disorders or other mood problems: Yes Bipolar, no medication at this time. Stable. Alcoholism and sober for 2 years, continues in AA. Do you have any safety concerns or history of traumatic events that you would like to discuss with your provider: Yes, How often does this describe you? I don't have enough money to pay my bills: Never Within the past 12 months, have you worried that your food would run out before you had money to buy more: Never In the past 12 months, has lack of reliable transportation kept you from going to medical appointments or work, or from keeping things needed for daily living: Never In the past 12 months, have you had any concerns about having a place to live, or about the condition or quality of your housing: Never Are there any cultural or spiritual needs we should be aware of: No Over the past two weeks have you felt down, depressed, or hopeless: Negative Over the past two weeks have you felt little interest or pleasure in doing things: Negative GENETIC SCREENING: Partner present: Yes Patient verbalized knowledge of partner family health history: No Do you or your partner have any personal or family history of defects not previously discussed: No Do you have history of a complicated by anomaly, genetic condition, or demise: No Marital Status:Committed relationship Partner: Name: Jaden Childs Age: 27 Occupation: [employer] Gender: Male History of STDs: None PAST MEDICAL HISTORY Diagnosis Date 40 weeks gestation of 08/19/2019 - Denies complications during this - last office check pt states she was 1 cm dilated - Endorsing leakage of fluid - Nitrazine/Ferning Negative - MADISON 21cm Per Dr. Beckwith - Plan to give pt 1 hour and recheck cervical width Anemia Anxiety disorder Atypical squamous cell changes of undetermined significance (ASCUS) on cervical cytology with positive high risk human papilloma virus (HPV) 11/12/2017 Bipolar 1 disorder (HCC) Depression NEGATIVE MEDICAL HISTORY Nexplanon insertion 2018 depression Psychiatric disorder PTSD (post-traumatic stress disorder) Subchorionic hematoma in first trimester 09/08/2021 Threatened labor at term 08/19/2019 Thyroid disease PAST SURGICAL HISTORY Procedure Laterality Date EXTRACTION, ERUPTED TOOTH OR EXPOSED ROOT (ELEVATION AND/OR FORCEPS REMOVAL) NEXPLANON REMOVAL 05/2021 PAST SURGICAL HISTORY OF wisdom teeth Current Outpatient Medications Medication Sig Dispense Refill MELATONIN 5 MG GUMMY Vitamin with 29 mg Iron ( PLUS) 29 mg iron- 1 mg Take 1 tablet by mouth once daily. 90 tablet 0 Desogestrel-Ethinyl Estradiol (APRI) 0.15-0.03 mg per tablet Take 1 tablet by mouth once daily. (Patient not taking: Reported on 02/15/2023) 84 tablet 4 No current facility-administered medications for this visit. Allergies As of Date: 02/18/2023 (No Known Allergies) Fully Assessed 02/18/2023 Does patient have penicillin allergy: No REVIEW OF SYSTEMS: GENERAL: Negative for: Fever or Chills HEENT: Negative for: Headache, Impaired Vision, Ringing in Ears, Nosebleeds NECK: Negative for: Swelling, Pain, (more content not included)...[facility]04-24-2023 History of Present illness Narrative* Manju Calvo RN - 02/15/2023 3:02 PM EDT # 1 - Date: 11/30/14, Sex: Female, Weight: 6 lb 10 oz (3.005 kg), GA: 39w0d, Delivery: Vaginal, Spontaneous, Apgar1: None, Apgar5: None, Living: Living, Comments: Patient treated for thyroid disorder , taken off medication afer delivery # 2 - Date: 05/30/18, Sex: Male, Weight: 7 lb 10 oz (3.459 kg), GA: 38w6d, Delivery: Vaginal, Spontaneous, Apgar1: 9, Apgar5: 9, Living: Living, Comments: PROM, augmented with pitocin, EBL 200cc # 3 - Date: 08/21/19, Sex: Female, Weight: 6 lb 10 oz (3.005 kg), GA: 40w2d, Delivery: Vaginal, Spontaneous, Apgar1: 8, Apgar5: 9, Living: Living, Comments: pitocin induction post dates, AROM, EBL 100cc # 4 - Date: 09/14/22, Sex: None, Weight: None, GA: None, Delivery: MISSED AB, Apgar1: None, Apgar5:None, Living: None, Comments: cytotec-No D&C # 5 - Date: None, Sex: None, Weight: None, GA: None, Delivery: None, Apgar1: None, Apgar5: None, Living: None, Comments: None documented in this encounterBrown Memorial Hospital04-24-2023 Miscellaneous Notes* Quick Notes - Manju Calvo RN - 02/15/2023 3:02 PM EDT DISTANCE HEALTH VISIT This Team Access Model visit is a phone encounter. It required patient-provider interaction for themedical decision making as documented below. Father of the baby is involved. He is the father of her last 2 children. Patient had a history of amiscarriage August 2021. Denies any bleeding pain or cramping this .Pt has a history of depression/PTSD/bipolar depression . She states that she did have depression after all ofher deliveries. She has been off medication for over a year. Believes she is doing well off medication. She did see Dr. Mejia at the counseling center in the past but has no been seen there since going off medication. She is open to going back to counseling if she feels like her depression symptoms worsen. Discussed increased risks of depression during and and importance ofreporting the development or worsening of symptoms should they occur. Patient denies any suicidal thoughts since 2018. Patient states that she had issues with alcohol abuse in the past but has not abused alcohol since 2020. Patient has a history of thyroid issue diagnosed in 2014 with her . She has been off medications since 2016. Last TSH was done in 2019. Patient desires aneuploidy screening. Contact information for [facility] given to patient to check on insurance coverage.Considering genetic carrier screening testing. Contact information for Yanet matias given to patient to check on insurance coverage.Manju Calvo RN documented in this encounterBrown Memorial Hospital05-13-2022 Instructions* Patient Instructions* Vilma Gray APRN.RESIDENTIAL HOUSEKEEPER - 03/06/2022 11:25 AM EDT Oral Contraceptives: The Pill Beginning the Pill Pills come in either a 21 day pack or a 28 day pack. With the 21 day pack you will take one pill for 21 days then no pill for 7 days, during which time you will have what is known as withdrawal bleeding. The 28 day pack allows you to take a pill every day of the cycle with no interruptions. The first 21 pills are the pills with the active ingredients and the last 7 are the nonmedical pills (placebo) or they may contain iron. There will be bleeding during the week you are taking the nonmedical pills. The advantage to the 28 day pack is that you don t have to keep track of when you stopped the pill. There are a group of 28 day pills that contain 24 active pills and only 4 placebo pills. Theseare formulated to give you a ssn/ssbn weapons equipment operator period. Unless otherwise instructed, you should start your pills the Wednesday following your first day of bleeding with your next period (if your period starts on a Wednesday, you should start pills the same day) Read your information packet that comes with the pills. Pill Benefits The pill is the most popular method of reversible control being used today. Millions of womenrely on oral contraceptives as their control method. It is important to have an examination by your physician to determine if the pill is safe for you. There are several advantages associated with the pill: it is 97-98% effective when used correctly; may improve acne; periods are more regularand less painful; there is less iron deficiency anemia in pill users. MCFP use is associated with a decreased incidence of ovarian and uterine cancer. There is also no evidence that the pill increases the incidence of any cancer. How Oral Contraceptives Work Oral contraceptives come in two varieties. One is the combination pill which contains both estrogenand progesterone. Combination pills are considered 98-99% effective in preventing . This pill comes in either monophasic, which delivers the same amount of estrogen and progesterone throughout the cycle; and triphasic, which try tries to mimic the normal hormone cycle by changing the levels of the hormones in the pills during the month. There is no real advantage to taking the one over the other. The other type of pill only contains progesterone. It is best used for women who can t take estrogen. This type of pill is slightly less effective than the combination pill in preventing preg luis daniel. It is VERY important to take the progesterone only pill at the same time every day. Oral contraceptives prevent ovulation (release of an egg from the ovary) by suppressing the pituitary gland s action. The pill does NOT prevent sexually transmitted disease. Obtaining a Prescription It is important to see your doctor before starting oral contraceptives so that you can have a full medical history taken and a physical examination given. Certain medical conditions may make the pillinappropriate for you, therefore it is very important to be honest and as complete as possible withthe information you share with your doctor. The types of predisposing factors which would make the pill a poor choice of control would include: History of blood clots Stroke Serious liver disease or impaired liver function Unexplained vaginal bleeding or Cancer of the reproductive system Active gall bladder disease Hypertension Possible Side Effects It can take up to three months for your body to become adjusted to the pill. The more common side effects experienced at this time are: breakthrough spotting or bleeding, which is bleeding at any other time other than when you should be having a period; nausea or vomiting; breast tenderness; and mild fluid retention. There is no senior living weight gain with the use of the pill. Breakthrough bleeding is the most common complaint of new pill users. There is no way to predict who will have it and there is no way of preventing it. Breakthrough bleeding usually subsides on its own with no further treatment after the first three months of taking the pill. If these symptoms continue to occur after the first three months you should check with your physician to see if there is any physical cause andpossibly change to another control pill. Problems: 1. Missed 1 pill: Take 2 pills the next day. 2. Missed 2 pills: Take 2 pills the next day and 2 pills the following day. Also use another form of control (condoms) along with the pill for the rest of the month. 3. Missed 3 or more pills: You have two choices. You can take two pills each day until you are on schedule, plus use an additional form of control along with the pill for the rest of the month.Or you can stop the pill and start a completely new pack of pills the next Wednesday. You must use another form of control with the pill for at least the first two weeks of the new pack. 4. You re ill and you have been vomiting or have diarrhea: You must use another form of control with the pill since the pill may not be fully absorbed during your illness. Continue to use the added control until the end of the cycle. 5. Desire to become : Stop using the pill for one month before trying to become . 6. Taking other medications: The control pill is less effective when you take the antibiotic Rifampin, epilepsy (seizure) drugs such as phenytoin, carbamazepine, phenobarbital, topiramate and some medications for HIV. Let your doctor know if you start taking any of these medications while on the pill. Symptoms to Notify Your Doctor with Immediately: 1. Pain in your chest or legs 2. Continuous blurred vision 3. Severe headaches 4. Slurred speech 5. Tingling or weakness on one side of your body 6. Shortness of breath 7. Swelling of one leg Refills of Control Pills You need to see a doctor every year for a refill of your prescription. This is necessary in order that your health can be monitored closely while you are taking control pills. If your prescription should before your next scheduled appointment you can usually get a one month extension from your doctors office if you call during regular business hours about one week before you need to start the new package of pills. This allows the physician to refer to your chart for necessary health information. documented in this encounterBrown Memorial Hospital05-13-2022 History of Present illness Narrative* Vilma Gray APRN.CNP - 03/06/2022 11:09 AM EDT Erica Toro is a 26 year old female who presents for problem visit irregular cycles, faint positive home UPT HPI: LMP unknown. Menses are irregular per her usual. Became nauseated so took home UPT which showed a faint positive line yesterday. Would like to confirm and discuss contraception. No interested inLARC. Interested in OCP since she would also like it for acne. 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 Beckwith - Plan to give pt 1hour and recheck cervical width Anemia Anxiety disorder Atypical squamous cell changes of undetermined significance (ASCUS) on cervical cytology with positive high risk human papilloma virus (HPV) 11/12/2017 Bipolar 1 disorder (HCC) Depression NEGATIVE MEDICAL HISTORY Nexplanon insertion 2018 depression Psychiatric disorder PTSD (post-traumatic stress disorder) Subchorionic hematoma in first trimester 09/08/2021 Threatened labor at term 08/19/2019 Thyroid disease PAST SURGICAL HISTORY Procedure Laterality Date EXTRACTION, ERUPTED TOOTH OR EXPOSED ROOT (ELEVATION AND/OR FORCEPS REMOVAL) NEXPLANON REMOVAL 05/2021 PAST SURGICAL HISTORY OF wisdom teeth FAMILY HISTORY Problem Relation Age of Onset Drug abuse Mother Heart Mother No Known Problems Sister No Known Problems Brother Cancer Maternal Grandmother No Known Problems Daughter No Known Problems Son Social History Tobacco Use Smoking status: Former Smoker Packs/day: 1.00 Smokeless tobacco: Never Used Vaping Use Vaping Use: Never used Substance Use Topics Alcohol use: Not Currently Comment: occ, not while Drug use: No Current Outpatient Medications Medication Sig Vitamin with 29 mg Iron ( PLUS) 29 mg iron- 1 mg Take 1 tablet by mouth once daily. (Patient not taking: Reported on 03/06/2022 ) No current facility-administered medications for this visit. Allergies As of Date: 03/06/2022 (No Known Allergies) Fully Assessed 03/06/2022 REVIEW OF SYSTEMS Abdomen: No bloating, early satiety, indigestion, or increased flatulence. No abdominal pain, nausea, vomiting, diarrhea, or constipation. Bladder: No dysuria, gross hematuria, urinary frequency, urinary urgency, or incontinence. Allergies and current medication updated:Yes EXAM: BP 136/68 Wt 150 lb (68.0kg) LMP 07/01/2021 GENERAL: pleasant, female in no apparent distress CHEST: Normal inspiratory effort NEURO: alert and oriented x3,exam grossly non-focal ASSESSMENT/PLAN: 1. Irregular menses - ICD9: 626.4, ICD10: N92.6 (primary diagnosis) - HCG QUAL UR B/O - negative - HCG QUANTITATIVE 2. Encounter for BCP ( control pills) initial prescription - ICD9: V25.01, ICD10: Z30.011 - RX for Apri given today. - discussed with patient on how to take OCP's. Given written information. - counseled on benefits, risks and possible severe side effects of OCP's. - discussed need to use Condoms to help to prevent STD's including HIV etc. - DESOGESTREL 0.15 MG-ETHINYL ESTRADIOL 0.03 MG TABLET 3. General counseling and advice for contraceptive management - ICD9: V25.09, ICD10: Z30.09 - Discussed OCP and Nuvaring with R/B/A. Not interested in LARC. - DESOGESTREL 0.15 MG-ETHINYL ESTRADIOL 0.03 MG TABLET Will notify of results. Follow- up 3 months. Vilma Gray APRN.CNP I spent a total of 20 minutes on the date of the service which included preparing to see the patient, [id number] patient care, completing clinical documentation, obtaining and/or reviewing separately obtained history, performing a medically appropriate examination, counseling and educating the pat ient/family/caregiver and ordering medications, tests, or procedures. [facility] History of Past illness Narrative* Problem Noted Date Resolved Date Subchorionic hematoma in first trimester 021 02/19/2023 Overview: 09/08/21- [facility] ED US report. Cortney Cash APRN.CNM Vaginal bleeding during 09/08/2021 02/19/2023 40 weeks gestation of 08/19/2019 09/08/2021 Overview: - Denies complications during this - last office check pt states she was 1 cm dilated - Endorsing leakage of fluid - Nitrazine/Ferning Negative - MADISON 21cm Per Dr. Beckwith - Plan to give pt 1 hour and recheck cervical width Intact amniotic membranes 08/19/20192022 Threatened labor at term 08/19/2019 021 Marijuana use 07/25/2019 02/19/2023 Overview: 07/25/19: + UTOX Gracy Clark MD Short interval between pregn ancies affecting , antepartum 12/08/2018 02/19/2023 Overview: 12/08/2018Patient delivered her last child 03/30/2018. States this is a planned .TKRN Positive GBS test 05/13/2018 12/15/2018 Normal in first trimester 11/29/2017 12/15/2018 High risk due to m aternal drug abuse, first trimester 11/29/2017 12/15/2018 Overview: 11/29/17-Positive urine tox screen for marijuana use. Patient had no further use after positive test. Reviewed risks to self and baby. Denies any further use. Retest in 3rd trimester and during labor. Maritza Richard CNM Bleeding in early 10/11/201710/25 Overview: 2017 Patient called in 09/29/2017 for vaginal bleeding during intercourse. She had serial quantitative HCG's. She denies any bleeding since then. She has an ultrasound scheduled after this appointment today.TKRN Quit smoking 2017 02/19/2023 Overview: 2017 Pt recently quit smoking 09/04/2017. Discussed risks of smoking during and advised pt to continue not smoking. documented as of this encounter (statuses as of 03/02/2023) [facility] Past illness Narrative* Problem Noted Date Resolved Date Subchorionic hematoma in first trimester 021 02/19/2023 Overview: 09/08/21- [facility] ED US report. Cortney Cash APRN.ARCADIOM Vaginal bleeding during 09/08/2021 02/19/2023 40 weeks gestation of 08/19/2019 09/08/2021 Overview: - Denies complications during this - last office check pt states she was 1 cm dilated - Endorsing leakage of fluid - Nitrazine/Ferning Negative - MADISON 21cm Per Dr. Beckwith - Plan to give pt 1 hour and recheck cervical width Intact amniotic membranes 08/19/20192022 Threatened labor at term 08/19/2019 021 Marijuana use 07/25/2019 02/19/2023 Overview: 07/25/19: + LAZARO Clark MD Short interval between pregn ancies affecting , antepartum 12/08/2018 02/19/2023 Overview: 12/08/2018Patient delivered her last child 03/30/2018. States this is a planned .TKRN Positive GBS test 05/13/2018 12/15/2018 Normal in first trimester 11/29/2017 12/15/2018 High risk due to m aternal drug abuse, first trimester 11/29/2017 12/15/2018 Overview: 11/29/17-Positive urine tox screen for marijuana use. Patient had no further use after positive test. Reviewed risks to self and baby. Denies any further use. Retest in 3rd trimester and during labor. Maritza Richard CNM Bleeding in early 10/11/201710/25 Overview: 2017 Patient called in 09/29/2017 for vaginal bleeding during intercourse. She had serial quantitative HCG's. She denies any bleeding since then. She has an ultrasound scheduled after this appointment today.TKRN Quit smoking 2017 02/19/2023 Overview: 2017 Pt recently quit smoking 09/04/2017. Discussed risks of smoking during and advised pt to continue not smoking. documented as of this encounter (statuses as of 03/08/2023) [facility] Past [facility] Narrative* Problem Noted Date Resolved Date Subchorionic hematoma in first trimester 021 02/19/2023 Overview: 09/08/21- [facility] ED US report. Cortney Cash APRN.CNM Vaginal bleeding during 09/08/2021 02/19/2023 40 weeks gestation of 08/19/2019 09/08/2021 Overview: - Denies complications during this - last office check pt states she was 1 cm dilated - Endorsing leakage of fluid - Nitrazine/Ferning Negative - MADISON 21cm Per Dr. Beckwith - Plan to give pt 1 hour and recheck cervical width Intact amniotic membranes 08/19/20192022 Threatened labor at term 08/19/2019 021 Marijuana use 07/25/2019 02/19/2023 Overview: 07/25/19: + LAZARO Clark MD Short interval between pregn ancies affecting , antepartum 12/08/2018 02/19/2023 Overview: 12/08/2018Patient delivered her last child 03/30/2018. States this is a planned .TKRN Positive GBS test 05/13/2018 12/15/2018 Normal in first trimester 11/29/2017 12/15/2018 High risk due to m aternal drug abuse, first trimester 11/29/2017 12/15/2018 Overview: 2/5/18-Positive urine tox screen for marijuana use. Patient had no further use after positive test. Reviewed risks to self and baby. Denies any further use. Retest in 3rd trimester and during labor. Maritza Richard CNM Bleeding in early 10/11/201710/25 Overview: 2017 Patient called in 09/29/2017 for vaginal bleeding during intercourse. She had serial quantitative HCG's. She denies any bleeding since then. She has an ultrasound scheduled after this appointment today.TKRN Quit smoking 2017 02/19/2023 Overview: 2017 Pt recently quit smoking 09/04/2017. Discussed risks of smoking during and advised pt to continue not smoking. documented as of this encounter (statuses as of 03/26/2023) [facility] Narrative* Problem Noted Date Resolved Date Subchorionic hematoma in first trimester 021 02/19/2023 Overview: 09/08/21- [facility] ED US report. Cortney Cash APRN.CNM Vaginal bleeding during 09/08/2021 02/19/2023 40 weeks gestation of 08/19/2019 09/08/2021 Overview: - Denies complications during this - last office check pt states she was 1 cm dilated - Endorsing leakage of fluid - Nitrazine/Ferning Negative - MAD[place] 21cm Per Dr. Beckwith - Plan to give pt 1 hour and recheck cervical width Intact amniotic membranes 08/19/20192022 Threatened labor at term 08/19/2019 021 Marijuana use 07/25/2019 02/19/2023 Overview: 07/25/19: + LAZARO Clark MD Short interval between pregn ancies affecting , antepartum 12/08/2018 02/19/2023 Overview: 12/08/2018Patient delivered her last child 03/30/2018. States this is a planned .TKRN Positive GBS test 05/13/2018 12/15/2018 Normal in first trimester 11/29/2017 12/15/2018 High risk due to m aternal drug abuse, first trimester 11/29/2017 12/15/2018 Overview: 11/29/17-Positive urine tox screen for marijuana use. Patient had no further use after positive test. Reviewed risks to self and baby. Denies any further use. Retest in 3rd trimester and during labor. Maritza Richard CNM Bleeding in early 10/11/201710/25 Overview: 2017 Patient called in 09/29/2017 for vaginal bleeding during intercourse. She had serial quantitative HCG's. She denies any bleeding since then. She has an ultrasound scheduled after this appointment today.TKRN Quit smoking 2017 02/19/2023 Overview: 2017 Pt recently quit smoking 09/04/2017. Discussed risks of smoking during and advised pt to continue not smoking. documented as of this encounter (statuses as of 03/26/2023) [facility] Narrative* Problem Noted Date Resolved Date Subchorionic hematoma in first trimester 021 02/19/2023 Overview: 09/08/21- [facility] ED US report. Cortney Cash APRN.CNM Vaginal bleeding during 09/08/2021 02/19/2023 40 weeks gestation of 08/19/2019 09/08/2021 Overview: - Denies complications during this - last office check pt states she was 1 cm dilated - Endorsing leakage of fluid - Nitrazine/Ferning Negative - M[place] 21cm Per Dr. Beckwith - Plan to give pt 1 hour and recheck cervical width Intact amniotic membranes 08/19/20192022 Threatened labor at term 08/19/2019 021 Marijuana use 07/25/2019 02/19/2023 Overview: 07/25/19: + TERRAOX Gracy Clark MD Short interval between pregn ancies affecting , antepartum 12/08/2018 02/19/2023 Overview: 12/08/2018Patient delivered her last child 03/30/2018. States this is a planned .TKRN Positive GBS test 05/13/2018 12/15/2018 Normal in first trimester 11/29/2017 12/15/2018 High risk due to m aternal drug abuse, first trimester 11/29/2017 12/15/2018 Overview: 11/29/17-Positive urine tox screen for marijuana use. Patient had no further use after positive test. Reviewed risks to self and baby. Denies any further use. Retest in 3rd trimester and during labor. Maritza Richard CNM Bleeding in early 10/11/201710/25 Overview: 2017 Patient called in 09/29/2017 for vaginal bleeding during intercourse. She had serial quantitative HCG's. She denies any bleeding since then. She has an ultrasound scheduled after this appointment today.TKRN Quit smoking 2017 02/19/2023 Overview: 2017 Pt recently quit smoking 09/04/2017. Discussed risks of smoking during and advised pt to continue not smoking. documented as of this encounter (statuses as of 04/22/2023) [facility] Narrative* Problem Noted Date Diagnosed Date Resolved Date Subchorionic hematoma in first trimester 09/08/2021 02/19/2023 Overview: 09/08/21- [facility] ED US report. Cortney Cash APRN.CNM Vaginal bleeding during 09/08/2021 02/19/2023 40 weeks gestation of 08/19/2019 09/08/2021 Overview: - Denies complications during this - last office check pt states she was 1 cm dilated - Endorsing leakage of fluid - Nitrazine/Ferning Negative - MAD[place] 21cm Per Dr. Beckwith - Plan to give pt 1 hour and recheck cervical width Intact amniotic membranes 08/19/2019 Threatened labor at term 08/19/2019 Marijuana use 07/25/2019 02/19/2023 Overview: 07/25/19: + LAZARO Clark MD Short interval between pregn ancies affecting , antepartum 12/08/2018 02/19/2023 Overview: 12/08/2018Patient delivered her last child 03/30/2018. States this is a planned .TKRN Positive GBS test 05/13/2018 12/15/2018 Normal in first trimester 11/29/2017 12/15/2018 High risk due to m aternal drug abuse, first trimester 11/29/2017 12/15/2018 Overview: 11/29/17-Positive urine tox screen for marijuana use. Patient had no further use after positive test. Reviewed risks to self and baby. Denies any further use. Retest in 3rd trimester and during labor. Maritza Richard CNM Bleeding in early 2017 11/12/2017 Overview: 2017 Patient called in 09/29/2017 for vaginal bleeding during intercourse. She had serial quantitative HCG's. She denies any bleeding since then. She has an ultrasound scheduled after this appointment today.TKRN Quit smoking 2017 02/19/2023 Overview: 2017 Pt recently quit smoking 09/04/2017. Discussed risks of smoking during and advised pt to continue not smoking. documented as of this encounter (statuses as of 05/27/2023) [facility] Narrative* Problem Noted Date Diagnosed Date Resolved Date Subchorionic hematoma in first trimester 09/08/2021 02/19/2023 Overview: 09/08/21- [facility] ED US report. Cortneyanita Cash APRN.CNM Vaginal bleeding during 09/08/2021 02/19/2023 40 weeks gestation of 08/19/2019 09/08/2021 Overview: - Denies complications during this - last office check pt states she was 1 cm dilated - Endorsing leakage of fluid - Nitrazine/Ferning Negative - MAD[place] 21cm Per Dr. Beckwith - Plan to give pt 1 hour and recheck cervical width Intact amniotic membranes 08/19/2019 Threatened labor at term 08/19/2019 Marijuana use 07/25/2019 02/19/2023 Overview: 07/25/19: + UTOX Gracy Clark MD Short interval between pregn ancies affecting , antepartum 12/08/2018 02/19/2023 Overview: 12/08/2018Patient delivered her last child 03/30/2018. States this is a planned .TKRN Positive GBS test 05/13/2018 12/15/2018 Normal in first trimester 11/29/2017 12/15/2018 High risk due to m aternal drug abuse, first trimester 11/29/2017 12/15/2018 Overview: 11/29/17-Positive urine tox screen for marijuana use. Patient had no further use after positive test. Reviewed risks to self and baby. Denies any further use. Retest in 3rd trimester and during labor. Maritza Richard CNM Bleeding in early 2017 11/12/2017 Overview: 2017 Patient called in 09/29/2017 for vaginal bleeding during intercourse. She had serial quantitative HCG's. She denies any bleeding since then. She has an ultrasound scheduled after this appointment today.TKRN Quit smoking 2017 02/19/2023 Overview: 2017 Pt recently quit smoking 09/04/2017. Discussed risks of smoking during and advised pt to continue not smoking. documented as of this encounter (statuses as of 05/27/2023) [facility] Narrative* Problem Noted Date Diagnosed Date Resolved Date Subchorionic hematoma in first trimester 09/08/2021 02/19/2023 Overview: 09/08/21- [facility] ED US report. Cortney Cash APRN.ARCADIOM Vaginal bleeding during 09/08/2021 02/19/2023 40 weeks gestation of 08/19/2019 09/08/2021 Overview: - Denies complications during this - last office check pt states she was 1 cm dilated - Endorsing leakage of fluid - Nitrazine/Ferning Negative - MAD[place] 21cm Per Dr. Beckwith - Plan to give pt 1 hour and recheck cervical width Intact amniotic membranes 08/19/2019 Threatened labor at term 08/19/2019 Marijuana use 07/25/2019 02/19/2023 Overview: 07/25/19: + TERRAOX Gracy Clark MD Short interval between pregn ancies affecting , antepartum 12/08/2018 02/19/2023 Overview: 12/08/2018Patient delivered her last child 03/30/2018. States this is a planned .TKRN Positive GBS test 05/13/2018 12/15/2018 Normal in first trimester 11/29/2017 12/15/2018 High risk due to m aternal drug abuse, first trimester 11/29/2017 12/15/2018 Overview: 11/29/17-Positive urine tox screen for marijuana use. Patient had no further use after positive test. Reviewed risks to self and baby. Denies any further use. Retest in 3rd trimester and during labor. Maritza Richard CNM Bleeding in early 2017 11/12/2017 Overview: 2017 Patient called in 09/29/2017 for vaginal bleeding during intercourse. She had serial quantitative HCG's. She denies any bleeding since then. She has an ultrasound scheduled after this appointment today.TKRN Quit smoking 2017 02/19/2023 Overview: 2017 Pt recently quit smoking 09/04/2017. Discussed risks of smoking during and advised pt to continue not smoking. documented as of this encounter (statuses as of 06/03/2023) [facility] Narrative* Problem Noted Date Diagnosed Date Resolved Date Subchorionic hematoma in first trimester 09/08/2021 02/19/2023 Overview: 09/08/21- [facility] ED US report. Cortney Cash APRN.CNM Vaginal bleeding during 09/08/2021 02/19/2023 40 weeks gestation of 08/19/2019 09/08/2021 Overview: - Denies complications during this - last office check pt states she was 1 cm dilated - Endorsing leakage of fluid - Nitrazine/Ferning Negative - M[place] 21cm Per Dr. Beckwith - Plan to give pt 1 hour and recheck cervical width Intact amniotic membranes 08/19/2019 Threatened labor at term 08/19/2019 Marijuana use 07/25/2019 02/19/2023 Overview: 07/25/19: + LAZARO Clark MD Short interval between pregn ancies affecting , antepartum 12/08/2018 02/19/2023 Overview: 12/08/2018Patient delivered her last child 03/30/2018. States this is a planned .TKRN Positive GBS test 05/13/2018 12/15/2018 Normal in first trimester 11/29/2017 12/15/2018 High risk due to m aternal drug abuse, first trimester 11/29/2017 12/15/2018 Overview: 11/29/17-Positive urine tox screen for marijuana use. Patient had no further use after positive test. Reviewed risks to self and baby. Denies any further use. Retest in 3rd trimester and during labor. Maritza Richard CNM Bleeding in early 2017 11/12/2017 Overview: 2017 Patient called in 09/29/2017 for vaginal bleeding during intercourse. She had serial quantitative HCG's. She denies any bleeding since then. She has an ultrasound scheduled after this appointment today.TKRN Quit smoking 2017 02/19/2023 Overview: 2017 Pt recently quit smoking 09/04/2017. Discussed risks of smoking during and advised pt to continue not smoking. documented as of this encounter (statuses as of 06/15/2023) [facility] Narr[facility]* Problem Noted Date Diagnosed Date Resolved Date Subchorionic hematoma in first trimester 09/08/2021 02/19/2023 Overview: 09/08/21- [facility] ED US report. Cortney Cash APRN.CNM Vaginal bleeding during 09/08/2021 02/19/2023 40 weeks gestation of 08/19/2019 09/08/2021 Overview: - Denies complications during this - last office check pt states she was 1 cm dilated - Endorsing leakage of fluid - Nitrazine/Ferning Negative - MADISON 21cm Per Dr. Beckwith - Plan to give pt 1 hour and recheck cervical width Intact amniotic membranes 08/19/2019 Threatened labor at term 08/19/2019 Marijuana use 07/25/2019 02/19/2023 Overview: 07/25/19: + LAZARO Clark MD Short interval between pregn ancies affecting , antepartum 12/08/2018 02/19/2023 Overview: 12/08/2018Patient delivered her last child 03/30/2018. States this is a planned .TKRN Positive GBS test 05/13/2018 12/15/2018 Normal in first trimester 11/29/2017 12/15/2018 High risk due to m aternal drug abuse, first trimester 11/29/2017 12/15/2018 Overview: 11/29/17-Positive urine tox screen for marijuana use. Patient had no further use after positive test. Reviewed risks to self and baby. Denies any further use. Retest in 3rd trimester and during labor. Maritza Richard CNM Bleeding in early 2017 11/12/2017 Overview: 2017 Patient called in 09/29/2017 for vaginal bleeding during intercourse. She had serial quantitative HCG's. She denies any bleeding since then. She has an ultrasound scheduled after this appointment today.TKRN Quit smoking 2017 02/19/2023 Overview: 2017 Pt recently quit smoking 09/04/2017. Discussed risks of smoking during and advised pt to continue not smoking. documented as of this encounter (statuses as of 06/24/2023) [facility] N[facility]* Problem Noted Date Diagnosed Date Resolved Date Subchorionic hematoma in first trimester 09/08/2021 02/19/2023 Overview: 09/08/21- [facility] ED US report. Cortney Cash APRN.CNM Vaginal bleeding during 09/08/2021 02/19/2023 40 weeks gestation of 08/19/2019 09/08/2021 Overview: - Denies complications during this - last office check pt states she was 1 cm dilated - Endorsing leakage of fluid - Nitrazine/Ferning Negative - MADISON 21cm Per Dr. Beckwith - Plan to give pt 1 hour and recheck cervical width Intact amniotic membranes 08/19/2019 Threatened labor at term 08/19/2019 Marijuana use 07/25/2019 02/19/2023 Overview: 07/25/19: + UTOX Gracy Clark MD Short interval between pregn ancies affecting , antepartum 12/08/2018 02/19/2023 Overview: 12/08/2018Patient delivered her last child 03/30/2018. States this is a planned .TKRN Positive GBS test 05/13/2018 12/15/2018 Normal in first trimester 11/29/2017 12/15/2018 High risk due to m aternal drug abuse, first trimester 11/29/2017 12/15/2018 Overview: 11/29/17-Positive urine tox screen for marijuana use. Patient had no further use after positive test. Reviewed risks to self and baby. Denies any further use. Retest in 3rd trimester and during labor. Maritza Richard CNM Bleeding in early 2017 11/12/2017 Overview: 2017 Patient called in 09/29/2017 for vaginal bleeding during intercourse. She had serial quantitative HCG's. She denies any bleeding since then. She has an ultrasound scheduled after this appointment today.TKRN Quit smoking 2017 02/19/2023 Overview: 2017 Pt recently quit smoking 09/04/2017. Discussed risks of smoking during and advised pt to continue not smoking. documented as of this encounter (statuses as of 06/29/2023) [facility] Narr[facility]* Problem Noted Date Diagnosed Date Resolved Date Subchorionic hematoma in first trimester 09/08/2021 02/19/2023 Overview: 09/08/21- [facility] ED US report. Cortney Cash APRN.CNM Vaginal bleeding during 09/08/2021 02/19/2023 40 weeks gestation of 08/19/2019 09/08/2021 Overview: - Denies complications during this - last office check pt states she was 1 cm dilated - Endorsing leakage of fluid - Nitrazine/Ferning Negative - M[place] 21cm Per Dr. Beckwith - Plan to give pt 1 hour and recheck cervical width Intact amniotic membranes 08/19/2019 Threatened labor at term 08/19/2019 Marijuana use 07/25/2019 02/19/2023 Overview: 07/25/19: + LAZARO Clark MD Short interval between pregn ancies affecting , antepartum 12/08/2018 02/19/2023 Overview: 12/08/2018Patient delivered her last child 03/30/2018. States this is a planned .TKRN Positive GBS test 05/13/2018 12/15/2018 Normal in first trimester 11/29/2017 12/15/2018 High risk due to m aternal drug abuse, first trimester 11/29/2017 12/15/2018 Overview: 11/29/17-Positive urine tox screen for marijuana use. Patient had no further use after positive test. Reviewed risks to self and baby. Denies any further use. Retest in 3rd trimester and during labor. Maritza Richard CNM Bleeding in early 2017 11/12/2017 Overview: 2017 Patient called in 09/29/2017 for vaginal bleeding during intercourse. She had serial quantitative HCG's. She denies any bleeding since then. She has an ultrasound scheduled after this appointment today.TKRN Quit smoking 2017 02/19/2023 Overview: 2017 Pt recently quit smoking 09/04/2017. Discussed risks of smoking during and advised pt to continue not smoking. documented as of this encounter (statuses as of 07/12/2023) [facility] Narrative* Problem Noted Date Diagnosed Date Resolved Date Subchorionic hematoma in first trimester 09/08/2021 02/19/2023 Overview: 09/08/21- [facility] ED US report. Cortney CashCELESTE.CNM Vaginal bleeding during 09/08/2021 02/19/2023 40 weeks gestation of 08/19/2019 09/08/2021 Overview: - Denies complications during this - last office check pt states she was 1 cm dilated - Endorsing leakage of fluid - Nitrazine/Ferning Negative - M[place] 21cm Per Dr. Beckwith - Plan to give pt 1 hour and recheck cervical width Intact amniotic membranes 08/19/2019 Threatened labor at term 08/19/2019 Marijuana use 07/25/2019 02/19/2023 Overview: 07/25/19: + UTOX Gracy Clark MD Short interval between pregn ancies affecting , antepartum 12/08/2018 02/19/2023 Overview: 12/08/2018Patient delivered her last child 03/30/2018. States this is a planned .TKRN Positive GBS test 05/13/2018 12/15/2018 Normal in first trimester 11/29/2017 12/15/2018 High risk due to m aternal drug abuse, first trimester 11/29/2017 12/15/2018 Overview: 11/29/17-Positive urine tox screen for marijuana use. Patient had no further use after positive test. Reviewed risks to self and baby. Denies any further use. Retest in 3rd trimester and during labor. Maritza Richard CNM Bleeding in early 2017 11/12/2017 Overview: 2017 Patient called in 09/29/2017 for vaginal bleeding during intercourse. She had serial quantitative HCG's. She denies any bleeding since then. She has an ultrasound scheduled after this appointment today.TKRN Quit smoking 2017 02/19/2023 Overview: 2017 Pt recently quit smoking 09/04/2017. Discussed risks of smoking during and advised pt to continue not smoking. documented as of this encounter (statuses as of 07/13/2023) [facility] Narrative* Problem Noted Date Diagnosed Date Resolved Date Subchorionic hematoma in first trimester 09/08/2021 02/19/2023 Overview: 09/08/21- [facility] ED US report. Cortney Cash APRN.ARCADIOM Vaginal bleeding during 09/08/2021 02/19/2023 40 weeks gestation of 08/19/2019 09/08/2021 Overview: - Denies complications during this - last office check pt states she was 1 cm dilated - Endorsing leakage of fluid - Nitrazine/Ferning Negative - MADISON 21cm Per Dr. Beckwith - Plan to give pt 1 hour and recheck cervical width Intact amniotic membranes 08/19/2019 Threatened labor at term 08/19/2019 Marijuana use 07/25/2019 02/19/2023 Overview: 07/25/19: + LAZARO Clark MD Short interval between pregn ancies affecting , antepartum 12/08/2018 02/19/2023 Overview: 12/08/2018Patient delivered her last child 03/30/2018. States this is a planned .TKRN Positive GBS test 05/13/2018 12/15/2018 Normal in first trimester 11/29/2017 12/15/2018 High risk due to m aternal drug abuse, first trimester 11/29/2017 12/15/2018 Overview: 11/29/17-Positive urine tox screen for marijuana use. Patient had no further use after positive test. Reviewed risks to self and baby. Denies any further use. Retest in 3rd trimester and during labor. Maritza Richard CNM Bleeding in early 2017 11/12/2017 Overview: 2017 Patient called in 09/29/2017 for vaginal bleeding during intercourse. She had serial quantitative HCG's. She denies any bleeding since then. She has an ultrasound scheduled after this appointment today.TKRN Quit smoking 2017 02/19/2023 Overview: 2017 Pt recently quit smoking 09/04/2017. Discussed risks of smoking during and advised pt to continue not smoking. documented as of this encounter (statuses as of 07/24/2023) [facility] History of Past illness Narrative* Problem Noted Date Diagnosed Date Resolved Date Subchorionic hematoma in first trimester 09/08/2021 02/19/2023 Overview: 09/08/21- [facility] ED US report. Cortney Cash APRN.CNM Vaginal bleeding during 09/08/2021 02/19/2023 40 weeks gestation of 08/19/2019 09/08/2021 Overview: - Denies complications during this - last office check pt states she was 1 cm dilated - Endorsing leakage of fluid - Nitrazine/Ferning Negative - MADISON 21cm Per Dr. Beckwith - Plan to give pt 1 hour and recheck cervical width Intact amniotic membranes 08/19/2019 Threatened labor at term 08/19/2019 Marijuana use 07/25/2019 02/19/2023 Overview: 07/25/19: + LAZARO Clark MD Short interval between pregn ancies affecting , antepartum 12/08/2018 02/19/2023 Overview: 12/08/2018Patient delivered her last child 03/30/2018. States this is a planned .TKRN Positive GBS test 05/13/2018 12/15/2018 Normal in first trimester 11/29/2017 12/15/2018 High risk due to m aternal drug abuse, first trimester 11/29/2017 12/15/2018 Overview: 11/29/17-Positive urine tox screen for marijuana use. Patient had no further use after positive test. Reviewed risks to self and baby. Denies any further use. Retest in 3rd trimester and during labor. Maritza Richard CNM Bleeding in early 2017 11/12/2017 Overview: 2017 Patient called in 09/29/2017 for vaginal bleeding during intercourse. She had serial quantitative HCG's. She denies any bleeding since then. She has an ultrasound scheduled after this appointment today.TKRN Quit smoking 2017 02/19/2023 Overview: 2017 Pt recently quit smoking 09/04/2017. Discussed risks of smoking during and advised pt to continue not smoking. documented as of this encounter (statuses as of 08/18/2023) [facility] History of Past illness Narrative* Problem Noted Date Diagnosed Date Resolved Date Subchorionic hematoma in first trimester 09/08/2021 02/19/2023 Overview: 09/08/21- [facility] ED US report. Cortney Cash APRN.CNM Vaginal bleeding during 09/08/2021 02/19/2023 40 weeks gestation of 08/19/2019 09/08/2021 Overview: - Denies complications during this - last office check pt states she was 1 cm dilated - Endorsing leakage of fluid - Nitrazine/Ferning Negative - MADISON 21cm Per Dr. Beckwith - Plan to give pt 1 hour and recheck cervical width Intact amniotic membranes 08/19/2019 Threatened labor at term 08/19/2019 Marijuana use 07/25/2019 02/19/2023 Overview: 07/25/19: + LAZARO Clark MD Short interval between pregn ancies affecting , antepartum 12/08/2018 02/19/2023 Overview: 12/08/2018Patient delivered her last child 03/30/2018. States this is a planned .TKRN Positive GBS test 05/13/2018 12/15/2018 Normal in first trimester 11/29/2017 12/15/2018 High risk due to m aternal drug abuse, first trimester 11/29/2017 12/15/2018 Overview: 11/29/17-Positive urine tox screen for marijuana use. Patient had no further use after positive test. Reviewed risks to self and baby. Denies any further use. Retest in 3rd trimester and during labor. Maritza Richard CNM Bleeding in early 2017 11/12/2017 Overview: 2017 Patient called in 09/29/2017 for vaginal bleeding during intercourse. She had serial quantitative HCG's. She denies any bleeding since then. She has an ultrasound scheduled after this appointment today.TKRN Quit smoking 2017 02/19/2023 Overview: 2017 Pt recently quit smoking 09/04/2017. Discussed risks of smoking during and advised pt to continue not smoking. documented as of this encounter (statuses as of 09/02/2023) [facility] History of Past illness Narrative* Problem Noted Date Diagnosed Date Resolved Date Subchorionic hematoma in first trimester 09/08/2021 02/19/2023 Overview: 09/08/21- [facility] ED US report. Cortney Cash APRN.ARCADIOM Vaginal bleeding during 09/08/2021 02/19/2023 40 weeks gestation of 08/19/2019 09/08/2021 Overview: - Denies complications during this - last office check pt states she was 1 cm dilated - Endorsing leakage of fluid - Nitrazine/Ferning Negative - MADISON 21cm Per Dr. Beckwith - Plan to give pt 1 hour and recheck cervical width Intact amniotic membranes 08/19/2019 Threatened labor at term 08/19/2019 Marijuana use 07/25/2019 02/19/2023 Overview: 07/25/19: + UTOX Gracy Clark MD Short interval between pregn ancies affecting , antepartum 12/08/2018 02/19/2023 Overview: 12/08/2018Patient delivered her last child 03/30/2018. States this is a planned .TKRN Positive GBS test 05/13/2018 12/15/2018 Normal in first trimester 11/29/2017 12/15/2018 High risk due to m aternal drug abuse, first trimester 11/29/2017 12/15/2018 Overview: 11/29/17-Positive urine tox screen for marijuana use. Patient had no further use after positive test. Reviewed risks to self and baby. Denies any further use. Retest in 3rd trimester and during labor. Maritza Richard CNM Bleeding in early 2017 11/12/2017 Overview: 2017 Patient called in 09/29/2017 for vaginal bleeding during intercourse. She had serial quantitative HCG's. She denies any bleeding since then. She has an ultrasound scheduled after this appointment today.TKRN Quit smoking 2017 02/19/2023 Overview: 2017 Pt recently quit smoking 09/04/2017. Discussed risks of smoking during and advised pt to continue not smoking. documented as of this encounter (statuses as of 09/02/2023) [facility] History of Past illness Narrative* Problem Noted Date Diagnosed Date Resolved Date Subchorionic hematoma in first trimester 09/08/2021 02/19/2023 Overview: 09/08/21- [facility] ED US report. Cortney Cash APRN.CNM Vaginal bleeding during 09/08/2021 02/19/2023 40 weeks gestation of 08/19/2019 09/08/2021 Overview: - Denies complications during this - last office check pt states she was 1 cm dilated - Endorsing leakage of fluid - Nitrazine/Ferning Negative - MADISON 21cm Per Dr. Beckwith - Plan to give pt 1 hour and recheck cervical width Intact amniotic membranes 08/19/2019 Threatened labor at term 08/19/2019 Marijuana use 07/25/2019 02/19/2023 Overview: 07/25/19: + UTSTEPHEN Clark MD Short interval between pregn ancies affecting , antepartum 12/08/2018 02/19/2023 Overview: 12/08/2018Patient delivered her last child 03/30/2018. States this is a planned .TKRN Positive GBS test 05/13/2018 12/15/2018 Normal in first trimester 11/29/2017 12/15/2018 High risk due to m aternal drug abuse, first trimester 11/29/2017 12/15/2018 Overview: 11/29/17-Positive urine tox screen for marijuana use. Patient had no further use after positive test. Reviewed risks to self and baby. Denies any further use. Retest in 3rd trimester and during labor. Maritza Richard CNM Bleeding in early 2017 11/12/2017 Overview: 2017 Patient called in 09/29/2017 for vaginal bleeding during intercourse. She had serial quantitative HCG's. She denies any bleeding since then. She has an ultrasound scheduled after this appointment today.TKRN Quit smoking 2017 02/19/2023 Overview: 2017 Pt recently quit smoking 09/04/2017. Discussed risks of smoking during and advised pt to continue not smoking. documented as of this encounter (statuses as of 09/03/2023) [facility] History of Past illness Narrative* Problem Noted Date Diagnosed Date Resolved Date Subchorionic hematoma in first trimester 09/08/2021 02/19/2023 Overview: 09/08/21- [facility] ED US report. Cortney PrattCELESTE deluna.CNM Vaginal bleeding during 09/08/2021 02/19/2023 40 weeks gestation of 08/19/2019 09/08/2021 Overview: - Denies complications during this - last office check pt states she was 1 cm dilated - Endorsing leakage of fluid - Nitrazine/Ferning Negative - MADISON 21cm Per Dr. Beckwith - Plan to give pt 1 hour and recheck cervical width Intact amniotic membranes 08/19/2019 Threatened labor at term 08/19/2019 Marijuana use 07/25/2019 02/19/2023 Overview: 07/25/19: + UTOX Gracy Clark MD Short interval between pregn ancies affecting , antepartum 12/08/2018 02/19/2023 Overview: 12/08/2018Patient delivered her last child 03/30/2018. States this is a planned .TKRN Positive GBS test 05/13/2018 12/15/2018 Normal in first trimester 11/29/2017 12/15/2018 High risk due to m aternal drug abuse, first trimester 11/29/2017 12/15/2018 Overview: 11/29/17-Positive urine tox screen for marijuana use. Patient had no further use after positive test. Reviewed risks to self and baby. Denies any further use. Retest in 3rd trimester and during labor. Maritza Richard CNM Bleeding in early 2017 11/12/2017 Overview: 2017 Patient called in 09/29/2017 for vaginal bleeding during intercourse. She had serial quantitative HCG's. She denies any bleeding since then. She has an ultrasound scheduled after this appointment today.TKRN Quit smoking 2017 02/19/2023 Overview: 2017 Pt recently quit smoking 09/04/2017. Discussed risks of smoking during and advised pt to continue not smoking. documented as of this encounter (statuses as of 09/13/2023) [facility] History of Past illness Narrative* Problem Noted Date Diagnosed Date Resolved Date Subchorionic hematoma in first trimester 09/08/2021 02/19/2023 Overview: 09/08/21- [facility] ED US report. Cortney Cash APRN.ARCADIOM Vaginal bleeding during 09/08/2021 02/19/2023 40 weeks gestation of 08/19/2019 09/08/2021 Overview: - Denies complications during this - last office check pt states she was 1 cm dilated - Endorsing leakage of fluid - Nitrazine/Ferning Negative - MADISON 21cm Per Dr. Beckwith - Plan to give pt 1 hour and recheck cervical width Intact amniotic membranes 08/19/2019 Threatened labor at term 08/19/2019 Marijuana use 07/25/2019 02/19/2023 Overview: 07/25/19: + UTOX Gracy Clark MD Short interval between pregn ancies affecting , antepartum 12/08/2018 02/19/2023 Overview: 12/08/2018Patient delivered her last child 03/30/2018. States this is a planned .TKRN Positive GBS test 05/13/2018 12/15/2018 Normal in first trimester 11/29/2017 12/15/2018 High risk due to m aternal drug abuse, first trimester 11/29/2017 12/15/2018 Overview: 11/29/17-Positive urine tox screen for marijuana use. Patient had no further use after positive test. Reviewed risks to self and baby. Denies any further use. Retest in 3rd trimester and during labor. Maritza Richard CNM Bleeding in early 2017 11/12/2017 Overview: 2017 Patient called in 09/29/2017 for vaginal bleeding during intercourse. She had serial quantitative HCG's. She denies any bleeding since then. She has an ultrasound scheduled after this appointment today.TKRN Quit smoking 2017 02/19/2023 Overview: 2017 Pt recently quit smoking 09/04/2017. Discussed risks of smoking during and advised pt to continue not smoking. documented as of this encounter (statuses as of 09/14/2023) [facility] History of Past illness Narrative* Problem Noted Date Diagnosed Date Resolved Date Subchorionic hematoma in first trimester 09/08/2021 02/19/2023 Overview: 09/08/21- [facility] ED report. Cortney Cash APRN.CNM Vaginal bleeding during 09/08/2021 02/19/2023 40 weeks gestation of 08/19/2019 09/08/2021 Overview: - Denies complications during this - last office check pt states she was 1 cm dilated - Endorsing leakage of fluid - Nitrazine/Ferning Negative - MADISON 21cm Per Dr. Beckwith - Plan to give pt 1 hour and recheck cervical width Intact amniotic membranes 08/19/2019 Threatened labor at term 08/19/2019 Marijuana use 07/25/2019 02/19/2023 Overview: 07/25/19: + LAZARO Clark MD Short interval between pregn ancies affecting , antepartum 12/08/2018 02/19/2023 Overview: 12/08/2018Patient delivered her last child 03/30/2018. States this is a planned .TKRN Positive GBS test 05/13/2018 12/15/2018 Normal in first trimester 11/29/2017 12/15/2018 High risk due to m aternal drug abuse, first trimester 11/29/2017 12/15/2018 Overview: 11/29/17-Positive urine tox screen for marijuana use. Patient had no further use after positive test. Reviewed risks to self and baby. Denies any further use. Retest in 3rd trimester and during labor. Maritza Richard CNM Bleeding in early 2017 11/12/2017 Overview: 2017 Patient called in 09/29/2017 for vaginal bleeding during intercourse. She had serial quantitative HCG's. She denies any bleeding since then. She has an ultrasound scheduled after this appointment today.TKRN Quit smoking 2017 02/19/2023 Overview: 2017 Pt recently quit smoking 09/04/2017. Discussed risks of smoking during and advised pt to continue not smoking. documented as of this encounter (statuses as of 09/21/2023) [facility] of Past illness Narrative* Problem Noted Date Diagnosed Date Resolved Date Subchorionic hematoma in first trimester 09/08/2021 02/19/2023 Overview: 09/08/21- [facility] ED US report. Cortney Cash APRN.ARCADOIM Vaginal bleeding during 09/08/2021 02/19/2023 40 weeks gestation of 08/19/2019 09/08/2021 Overview: - Denies complications during this - last office check pt states she was 1 cm dilated - Endorsing leakage of fluid - Nitrazine/Ferning Negative - MADISON 21cm Per Dr. Beckwith - Plan to give pt 1 hour and recheck cervical width Intact amniotic membranes 08/19/2019 Threatened labor at term 08/19/2019 Marijuana use 07/25/2019 02/19/2023 Overview: 07/25/19: + LAZARO Clark MD Short interval between pregn ancies affecting , antepartum 12/08/2018 02/19/2023 Overview: 12/08/2018Patient delivered her last child 03/30/2018. States this is a planned .TKRN Positive GBS test 05/13/2018 12/15/2018 Normal in first trimester 11/29/2017 12/15/2018 High risk due to m aternal drug abuse, first trimester 11/29/2017 12/15/2018 Overview: 11/29/17-Positive urine tox screen for marijuana use. Patient had no further use after positive test. Reviewed risks to self and baby. Denies any further use. Retest in 3rd trimester and during labor. Maritza Richard CNM Bleeding in early 2017 11/12/2017 Overview: 2017 Patient called in 09/29/2017 for vaginal bleeding during intercourse. She had serial quantitative HCG's. She denies any bleeding since then. She has an ultrasound scheduled after this appointment today.TKRN Quit smoking 2017 02/19/2023 Overview: 2017 Pt recently quit smoking 09/04/2017. Discussed risks of smoking during and advised pt to continue not smoking. documented as of this encounter (statuses as of 09/21/2023) [facility] of Past illness Narrative* Problem Noted Date Diagnosed Date Resolved Date Subchorionic hematoma in first trimester 09/08/2021 02/19/2023 Overview: 09/08/21- [facility] ED US report. Cortney Cash APRN.ARCADIOM Vaginal bleeding during 09/08/2021 02/19/2023 40 weeks gestation of 08/19/2019 09/08/2021 Overview: - Denies complications during this - last office check pt states she was 1 cm dilated - Endorsing leakage of fluid - Nitrazine/Ferning Negative - MADISON 21cm Per Dr. Beckwith - Plan to give pt 1 hour and recheck cervical width Intact amniotic membranes 08/19/2019 Threatened labor at term 08/19/2019 Marijuana use 07/25/2019 02/19/2023 Overview: 07/25/19: + UTOX Gracy Clark MD Short interval between pregn ancies affecting , antepartum 12/08/2018 02/19/2023 Overview: 12/08/2018Patient delivered her last child 03/30/2018. States this is a planned .TKRN Positive GBS test 05/13/2018 12/15/2018 Normal in first trimester 11/29/2017 12/15/2018 High risk due to m aternal drug abuse, first trimester 11/29/2017 12/15/2018 Overview: 11/29/17-Positive urine tox screen for marijuana use. Patient had no further use after positive test. Reviewed risks to self and baby. Denies any further use. Retest in 3rd trimester and during labor. Maritza Richard CNM Bleeding in early 2017 11/12/2017 Overview: 2017 Patient called in 09/29/2017 for vaginal bleeding during intercourse. She had serial quantitative HCG's. She denies any bleeding since then. She has an ultrasound scheduled after this appointment today.TKRN Quit smoking 2017 02/19/2023 Overview: 2017 Pt recently quit smoking 09/04/2017. Discussed risks of smoking during and advised pt to continue not smoking. documented as of this encounter (statuses as of 09/24/2023) [facility] of Past illness Narrative* Problem Noted Date Diagnosed Date Resolved Date Subchorionic hematoma in first trimester 09/08/2021 02/19/2023 Overview: 09/08/21- [facility] ED US report. Cortney Cash APRN.CNM Vaginal bleeding during 09/08/2021 02/19/2023 40 weeks gestation of 08/19/2019 09/08/2021 Overview: - Denies complications during this - last office check pt states she was 1 cm dilated - Endorsing leakage of fluid - Nitrazine/Ferning Negative - MADISON 21cm Per Dr. Beckwith - Plan to give pt 1 hour and recheck cervical width Intact amniotic membranes 08/19/2019 Threatened labor at term 08/19/2019 Marijuana use 07/25/2019 02/19/2023 Overview: 07/25/19: + UTSTEPHEN Clark MD Short interval between pregn ancies affecting , antepartum 12/08/2018 02/19/2023 Overview: 12/08/2018Patient delivered her last child 03/30/2018. States this is a planned .TKRN Positive GBS test 05/13/2018 12/15/2018 Normal in first trimester 11/29/2017 12/15/2018 High risk due to m aternal drug abuse, first trimester 11/29/2017 12/15/2018 Overview: 11/29/17-Positive urine tox screen for marijuana use. Patient had no further use after positive test. Reviewed risks to self and baby. Denies any further use. Retest in 3rd trimester and during labor. Maritza Richard CNM Bleeding in early 2017 11/12/2017 Overview: 2017 Patient called in 09/29/2017 for vaginal bleeding during intercourse. She had serial quantitative HCG's. She denies any bleeding since then. She has an ultrasound scheduled after this appointment today.TKRN Quit smoking 2017 02/19/2023 Overview: 2017 Pt recently quit smoking 09/04/2017. Discussed risks of smoking during and advised pt to continue not smoking. documented as of this encounter (statuses as of 09/27/2023) [facility] of Past illness Narrative* Problem Noted Date Diagnosed Date Resolved Date Subchorionic hematoma in first trimester 09/08/2021 02/19/2023 Overview: 09/08/21- [facility] ED US report. Cortney CashCELESTE.CNM Vaginal bleeding during 09/08/2021 02/19/2023 40 weeks gestation of 08/19/2019 09/08/2021 Overview: - Denies complications during this - last office check pt states she was 1 cm dilated - Endorsing leakage of fluid - Nitrazine/Ferning Negative - MADISON 21cm Per Dr. Beckwith - Plan to give pt 1 hour and recheck cervical width Intact amniotic membranes 08/19/2019 Threatened labor at term 08/19/2019 Marijuana use 07/25/2019 02/19/2023 Overview: 07/25/19: + LAZARO Clark MD Short interval between pregn ancies affecting , antepartum 12/08/2018 02/19/2023 Overview: 12/08/2018Patient delivered her last child 03/30/2018. States this is a planned .TKRN Positive GBS test 05/13/2018 12/15/2018 Normal in first trimester 11/29/2017 12/15/2018 High risk due to m aternal drug abuse, first trimester 11/29/2017 12/15/2018 Overview: 11/29/17-Positive urine tox screen for marijuana use. Patient had no further use after positive test. Reviewed risks to self and baby. Denies any further use. Retest in 3rd trimester and during labor. Maritza Richard CNM Bleeding in early 2017 11/12/2017 Overview: 2017 Patient called in 09/29/2017 for vaginal bleeding during intercourse. She had serial quantitative HCG's. She denies any bleeding since then. She has an ultrasound scheduled after this appointment today.TKRN Quit smoking 2017 02/19/2023 Overview: 2017 Pt recently quit smoking 09/04/2017. Discussed risks of smoking during and advised pt to continue not smoking. documented as of this encounter (statuses as of 10/06/2023) [facility] History of Past illness Narrative* Problem Noted Date Resolved Date 40 weeks gestation of 08/19/2019 09/08/2021 Overview: - Denies complications during this - last office check pt states she was 1 cm dilated - Endorsing leakage of fluid - Nitrazine/Ferning Negative - MADISON 21cm Per Dr. Beckwith - Plan to give pt 1 hour and recheck cervical width Threatened labor at term 08/19/2019 021 Positive GBS test 05/13/2018 12/15/2018 Normal in first trimester 11/29/2017 12/15/2018 High risk due to m aternal drug abuse, first trimester 11/29/2017 12/15/2018 Overview: 11/29/17-Positive urine tox screen for marijuana use. Patient had no further use after positive test. Reviewed risks to self and baby. Denies any further use. Retest in 3rd trimester and during labor. Maritza Richard CNM Bleeding in early 10/11/201710/25 Overview: 2017 Patient called in 09/29/2017 for vaginal bleeding during intercourse. She had serial quantitative HCG's. She denies any bleeding since then. She has an ultrasound scheduled after this appointment today.TKRN Patient requested diagnostic testing 2017 03/30/2019 Overview: 12/08/2018 Patient desires nuchal ultrasound. TKRN documented as of this encounter (statuses as of 03/06/2022) [facility] History of Past illness Narrative* Problem Noted Date Resolved Date 40 weeks gestation of 08/19/2019 09/08/2021 Overview: - Denies complications during this - last office check pt states she was 1 cm dilated - Endorsing leakage of fluid - Nitrazine/Ferning Negative - MADISON 21cm Per Dr. Beckwith - Plan to give pt 1 hour and recheck cervical width Threatened labor at term 08/19/2019 021 Positive GBS test 05/13/2018 12/15/2018 Normal in first trimester 11/29/2017 12/15/2018 High risk due to m aternal drug abuse, first trimester 11/29/2017 12/15/2018 Overview: 11/29/17-Positive urine tox screen for marijuana use. Patient had no further use after positive test. Reviewed risks to self and baby. Denies any further use. Retest in 3rd trimester and during labor. Maritza Richard CNM Bleeding in early 10/11/201710/25 Overview: 2017 Patient called in 09/29/2017 for vaginal bleeding during intercourse. She had serial quantitative HCG's. She denies any bleeding since then. She has an ultrasound scheduled after this appointment today.TKRN documented as of this encounter (statuses as of 02/16/2023) [facility] Diagnosis Irregular menses- Primary Irregular menstrual cycle Encounter for BCP ( control pills) initial prescription General counseling for prescription of oral contraceptives General counseling and advice for contraceptive management Other general counseling and advice for contraceptive management [facility] Current with history of spontaneous during prior - Primary History of bipolar disorder Personal history of affective disorder History of alcohol abuse Nondependent alcohol abuse, in remission History of thyroid disorder Patient request for diagnostic testing Other specified examination [facility] Diagnosis Encounter to determine viability of , single or unspecified fetus- Primary with uncertain viability, single or unspecified [facility] Diagnosis 11 weeks gestation of - Primary state, incidental [facility] Diagnosis Encounter for (NT) nuchal translucency scan- Primary Other specified screening 11 weeks gestation of state, incidental [facility] Diagnosis 15 weeks gestation of - Primary state, incidental [facility] Diagnosis Encounter for supervision of other normal in second trimester- Primary 20 weeks gestation of state, incidental [facility] Diagnosis Encounter for anatomic survey- Primary 20 weeks gestation of state, incidental [facility] Diagnosis Encounter for follow-up ultrasound of anatomy- Primary [facility]* Diagnosis 24 weeks gestation of - Primary state, incidental Encounter for supervision of other normal in second trimester [facility] Diagnosis Encounter for follow-up ultrasound of anatomy- Primary 25 weeks gestation of state, incidental [facility]* Diagnosis Spotting in - Primary Spotting complicating , unspecified as to episode of care or not applicable Bloody show and cramping in early Threatened , antepartum 27 weeks gestation of state, incidental [facility] Diagnosis 32 weeks gestation of - Primary state, incidental Encounter for supervision of other normal in third trimester Anemia complicating , third trimester [facility]* Diagnosis Supervision of high risk in third trimester- Primary Unspecified high-risk 34 weeks gestation of state, incidental History of thyroid disease Personal history of other endocrine, metabolic, and immunity disorders Migraine with aura and without status migrainosus, not intractable Migraine with aura, without mention of intractable migraine without mention of status migrainosus Anemia complicating , third trimester Collin Hick's contraction Other threatened labor, unspecified as to episode of care [facility]* Diagnosis 36 weeks gestation of - Primary state, incidental Supervision of high risk in third trimester Unspecified high-risk Vaginal discharge Leukorrhea, not specified as infective [facility]* Diagnosis Encounter for ultrasound to check growth- Primary Encounter for routine screening for malformation using ultrasonics Supervision of high risk in third trimester Unspecified high-risk History of thyroid disease Personal history of other endocrine, metabolic, and immunity disorders 37 weeks gestation of state, incidental [facility]* Diagnosis Supervision of high risk in third trimester- Primary Unspecified high-risk 37 weeks gestation of state, incidental [facility]* Diagnosis Supervision of high risk in third trimester- Primary Unspecified high-risk Anemia complicating , third trimester 38 weeks gestation of state, incidental [facility]* Diagnosis Supervision of high risk in third trimester- Primary Unspecified high-risk 39 weeks gestation of state, incidental [facility]* Diagnosis Strep throat- Primary Streptococcal sore throat Nausea and vomiting, unspecified vomiting type documented [facility]* Diagnosis Onset Date Resolution Status 39 weeks gestation of acute Alcohol abuse acute Bipolar disorder acute Care and examination of lactating mother acute Multiparous acute Post traumatic stress disorder (PTSD) acute Spontaneous onset of labor a cute Spontaneous rupture of amniotic membranes acute (spontaneous vaginal delivery) [facility] Work Phone: Reason for referral (narrative)* Diagnostic Procedure Only (Routine) - Authorized Specialty Diagnoses / Procedures Referred By Contac t Referred To Contact [facility] Diagnoses 15 weeks gestation of Procedures OBSTETRIC ULTRASOUND WHI US PREG UTERUS AFTER 1ST TRIMEST GESTATION Maritza Richard APRN.CNM [address] [place] [address] [facility] [place] [address] Referral ID Status Reason Start Date Expiration Date Visits Requested Visits Authorized [id number] Authorized Auto-Generat ed Referral 04/21/2023 04/20/2024 1 1 [facility] for referral (narrative)* Diagnostic Procedure Only (Routine) - Authorized Specialty Diagnoses / Procedures Referred By Contac t Referred To Contact [facility] Diagnoses Encounter for follow-up ultrasound of anatomy Procedures OBSTETRIC ULTRASOUND WHI US PREG UTERUS AFTER 1ST TRIMEST GESTATION Dulce Shannon APRN.CNP [address] [place] [address] [facility] [address] [place] [address] Referral ID Status Reason Start Date Expiration Date Visits Requested Visits Authorized [id number] Authorized Auto-Generat ed Referral 06/14/2023 06/13/2024 1 1 [facility] for referral (narrative)* Diagnostic Procedure Only (Routine) - Authorized Specialty Diagnoses / Procedures Referred By Contac t Referred To Contact [facility] Diagnoses Supervision of high risk in third trimester History of thyroid disease Procedures OBSTETRIC ULTRASOUND WHI US PREG UTERUS AFTER 1ST TRIMEST GESTATION Lon Aranda APRN.CNP [address] [place] [address] [facility] [address] [place] [address] Referral ID Status Reason Start Date Expiration Date Visits Requested Visits Authorized [id number] Authorized Auto-Generat ed Referral 09/01/2023 08/31/2024 5 1 * Consult, Test, Treat (Routine) - Authorized Specialty Diagnoses / Procedures Referred By Contac t Referred To Contact Neurology Diagnoses Migraine with aura and without status migrainosus, not intractable Procedures CONSULT TO NEUROLOGY OFFICE/OUTPATIENT [facility] MDM 60-74 MINUTES Lon Aranda APRN.CNP [address] [place] [address] Referral ID Status Reason Start Date Expiration Date Visits Requested Visits Authorized [id number] Authorized PCP Requested Referral 09/01/2023 08/31/2024 1 1 [facility] Summary Purpose Family History No Family History Records FoundNo Family History Records FoundNo Family History Records FoundNo Family History Records FoundNo Family History Records FoundNo Family History Records FoundNo Family History Records FoundNo Family History Records Found Advance Directives Latest Code Status on File Code Status Date Activated Date Inactivated Comments Full Code 10/06/2020 10:05 AM Documents on File Type Date Recorded Patient Strip Picker Expl anation Advance Directive(s) 10/05/2019 9:33 AM Advance Directive(s) 09/20/2018 9:32 PM Advance Directive(s) 08/01/2018 7:06 PM Advance Directive Response Recorded Date/ Time Living Will No October 06 2:07pm Power of Supervisor Coremaker No October 06, 2023 2:07pm Hospital Course Note EMERGENCY DEPARTMENT DISCHAR GE SUMMARY PATIENT NAME:ERICA TORO AGE: 24 Years SEX: Female PHONE: DOS: 12/17/2019 04:36:00 : 1995 ATTENDING PHYSICIAN:Thierno Jack MD PCP: Physician, PCP Unknown CHIEF COMPLAINT: SI Allergies NKA Problems Active PTSD (post-traumatic stress disorder) Bipolar disorder Anxiety Depression DISCHARGE DIAGNOSIS: DISCHARGE INSTRUCTIONS: ED PHYSICIAN DOCUMENTATION: History of Present Illness Hx obtained from: patient HPI:?25 year old female with history of depression, bipolar disorder, and suicidal thoughts presents to the ED for evaluation of bilateral wrist lacerations. Patient attempted suicide tonight by cutting both her wrists with a razor blade. She states that she was locked out of her hotel room by her fiance prior to cutting her wrists. Patient states that she feels safe with her fiance. She states that this is the first time she attempted suicide, and she states that she cut her wrist as a teenager. She admits to dr (more content not included)... Note LACERATION PROCEDURE NOTE: L eft distal forearm laceration The affected area was cleansed, scrubbed, prepped and draped in a sterile manner. The area was anesthetized with 1% lidocaine without epi. The wound was explored. No foreign body. No joint involvement. No tendon or ligament laceration seen. Wound irrigated under pressure with copious amount of saline. The laceration was closed with 5-0 nylon using 12 simple interrupted stitches. Wound was dressed with antibacterial ointment and sterile gauze. At the completion of the repair, the wound edges were well approximated and hemostasis achieved. Wound is not layered and measures proximately 5 cm Assessments Note LACERATION PROCEDURE NOTE: L eft distal forearm laceration The affected area was cleansed, scrubbed, prepped and draped in a sterile manner. The area was anesthetized with 1% lidocaine without epi. The wound was explored. No foreign body. No joint involvement. No tendon or ligament laceration seen. Wound irrigated under pressure with copious amount of saline. The laceration was closed with 5-0 nylon using 12 simple interrupted stitches. Wound was dressed with antibacterial ointment and sterile gauze. At the completion of the repair, the wound edges were well approximated and hemostasis achieved. Wound is not layered and measures proximately 5 cm Health Concerns Problem Noted Date OB Reminders 02/18/2023 Problem Noted Date OB Reminders 02/18/2023 Problem Noted Date OB Reminders 02/18/2023 Problem Noted Date OB Reminders 02/18/2023 Problem Noted Date Diagnosed Date OB Reminders 02/18/2023 Problem Noted Date Diagnosed Date OB Reminders 02/18/2023 Problem Noted Date Diagnosed Date OB Reminders 02/18/2023 Problem Noted Date Diagnosed Date OB Reminders 02/18/2023 Problem Noted Date Diagnosed Date OB Reminders 02/18/2023 Chief Complaint and Reason for Visit Chief Complaint LABOR AND DELIVERY Reason for Visit 39 weeks gestation o f Alcohol abuse Bipolar disorder Care and examination of lactating mother Multiparous Post traumatic stress disorder (PTSD) Spontaneous onset of labor Spontaneous rupture of amniotic membranes (spontaneous vaginal delivery) Additional Source Comments INFORMATION SOURCE (unrecogn ized section and content) DATE CREATED AUTHOR 10/03/2018 [facility] DATE CREATED AUTHOR AUTHOR'S ORGANIZ ATION 10/08/2019 [facility] DATE CREATED AUTHOR AUTHOR'S ORGANIZ ATION 2019 [facility] DATE CREATED AUTHOR AUTHOR'S ORGANIZ ATION 12/22/2019 [facility] DATE CREATED AUTHOR AUTHOR'S ORGANIZ ATION 10/08/2020 [facility] DATE CREATED AUTHOR AUTHOR'S ORGANIZ ATION 10/09/2020 [facility] DATE CREATED AUTHOR AUTHOR'S ORGANIZ ATION 10/13/2023 [facility] DATE CREATED AUTHOR AUTHOR'S ORGANIZ ATION 02/19/2024 [facility] Surgical History (unrecogniz ed section and content) Surgery Date Site/Laterality Comments WISDOM TOOTH EXTRACTION Medical History (unrecognize d section and content) Medical History Date Comments Suicide attempt (HCC) Anxiety History of suicidal ideation Depression Bipolar 1 disorder (HCC) Anemia PTSD (post-traumatic stress disorder) depression Thyroid disease Source Comments (unrecognize d section and content) In the event this informatio n is protected by the Federal Confidentiality of Alcohol and Drug Abuse Patient Records regulations: The Federal rules restrict any use of the information to criminally investigate or prosecute any alcohol or drug abuse patient.[facility] the event this information is protected by the Federal Confidentiality of Alcohol and Drug Abuse Patient Records regulations: The Federal rules restrict any use of the information to criminally investigate or prosecute any alcohol or drug abuse patient.[facility] the event this information is protected by the Federal Confidentiality of Alcohol and Drug Abuse Patient Records regulations: The Federal rules restrict any use of the information to criminally investigate or prosecute any alcohol or drug abuse patient.[facility] Hospital[facility] the event this information is protected by the Federal Confidentiality of Alcohol and Drug Abuse Patient Records regulations: The Federal rules restrict any use of the information to criminally investigate or prosecute any alcohol or drug abuse patient.[facility] Hospital[facility] the event this information is protected by the Federal Confidentiality of Alcohol and Drug Abuse Patient Records regulations: The Federal rules restrict any use of the information to criminally investigate or prosecute any alcohol or drug abuse patient.[facility] HospitalIn the event this information is protected by the Federal Confidentiality of Alcohol and Drug Abuse Patient Records regulations: The Federal rules restrict any use of the information to criminally investigate or prosecute any alcohol or drug abuse patient.[facility] HospitalIn the event this information is protected by the Federal Confidentiality of Alcohol and Drug Abuse Patient Records regulations: The Federal rules restrict any use of the information to criminally investigate or prosecute any alcohol or drug abuse patient.[facility] HospitalIn the event this information is protected by the Federal Confidentiality of Alcohol and Drug Abuse Patient Records regulations: The Federal rules restrict any use of the information to criminally investigate or prosecute any alcohol or drug abuse patient.[facility] HospitalIn the event this information is protected by the Federal Confidentiality of Alcohol and Drug Abuse Patient Records regulations: The Federal rules restrict any use of the information to criminally investigate or prosecute any alcohol or drug abuse patient.[facility] HospitalIn the event this information is protected by the Federal Confidentiality of Alcohol and Drug Abuse Patient Records regulations: The Federal rules restrict any use of the information to criminally investigate or prosecute any alcohol or drug abuse patient.[facility] HospitalIn the event this information is protected by the Federal Confidentiality of Alcohol and Drug Abuse Patient Records regulations: The Federal rules restrict any use of the information to criminally investigate or prosecute any alcohol or drug abuse patient.[facility] HospitalIn the event this information is protected by the Federal Confidentiality of Alcohol and Drug Abuse Patient Records regulations: The Federal rules restrict any use of the information to criminally investigate or prosecute any alcohol or drug abuse patient.[facility] HospitalIn the event this information is protected by the Federal Confidentiality of Alcohol and Drug Abuse Patient Records regulations: The Federal rules restrict any use of the information to criminally investigate or prosecute any alcohol or drug abuse patient.[facility] HospitalIn the event this information is protected by the Federal Confidentiality of Alcohol and Drug Abuse Patient Records regulations: The Federal rules restrict any use of the information to criminally investigate or prosecute any alcohol or drug abuse patient.[facility] HospitalIn the event this information is protected by the Federal Confidentiality of Alcohol and Drug Abuse Patient Records regulations: The Federal rules restrict any use of the information to criminally investigate or prosecute any alcohol or drug abuse patient.[facility] HospitalIn the event this information is protected by the Federal Confidentiality of Alcohol and Drug Abuse Patient Records regulations: The Federal rules restrict any use of the information to criminally investigate or prosecute any alcohol or drug abuse patient.[facility] Hospital[facility] the event this information is protected by the Federal Confidentiality of Alcohol and Drug Abuse Patient Records regulations: The Federal rules restrict any use of the information to criminally investigate or prosecute any alcohol or drug abuse patient.[facility] HospitalIn the event this information is protected by the Federal Confidentiality of Alcohol and Drug Abuse Patient Records regulations: The Federal rules restrict any use of the information to criminally investigate or prosecute any alcohol or drug abuse patient.[facility] Hospital[facility] the event this information is protected by the Federal Confidentiality of Alcohol and Drug Abuse Patient Records regulations: The Federal rules restrict any use of the information to criminally investigate or prosecute any alcohol or drug abuse patient.[facility] HospitalIn the event this information is protected by the Federal Confidentiality of Alcohol and Drug Abuse Patient Records regulations: The Federal rules restrict any use of the information to criminally investigate or prosecute any alcohol or drug abuse patient.[facility] HospitalIn the event this information is protected by the Federal Confidentiality of Alcohol and Drug Abuse Patient Records regulations: The Federal rules restrict any use of the information to criminally investigate or prosecute any alcohol or drug abuse patient.[facility] HospitalIn the event this information is protected by the Federal Confidentiality of Alcohol and Drug Abuse Patient Records regulations: The Federal rules restrict any use of the information to criminally investigate or prosecute any alcohol or drug abuse patient.[facility] HospitalIn the event this information is protected by the Federal Confidentiality of Alcohol and Drug Abuse Patient Records regulations: The Federal rules restrict any use of the information to criminally investigate or prosecute any alcohol or drug abuse patient.[facility] HospitalIn the event this information is protected by the Federal Confidentiality of Alcohol and Drug Abuse Patient Records regulations: The Federal rules restrict any use of the information to criminally investigate or prosecute any alcohol or drug abuse patient.[facility] HospitalIn the event this information is protected by the Federal Confidentiality of Alcohol and Drug Abuse Patient Records regulations: The Federal rules restrict any use of the information to criminally investigate or prosecute any alcohol or drug abuse patient.[facility] HospitalIn the event this information is protected by the Federal Confidentiality of Alcohol and Drug Abuse Patient Records regulations: The Federal rules restrict any use of the information to criminally investigate or prosecute any alcohol or drug abuse patient.[facility] HospitalIn the event this information is protected by the Federal Confidentiality of Alcohol and Drug Abuse Patient Records regulations: The Federal rules restrict any use of the information to criminally investigate or prosecute any alcohol or drug abuse patient.[facility] HospitalIn the event this information is protected by the Federal Confidentiality of Alcohol and Drug Abuse Patient Records regulations: The Federal rules restrict any use of the information to criminally investigate or prosecute any alcohol or drug abuse patient.[facility] HospitalIn the event this information is protected by the Federal Confidentiality of Alcohol and Drug Abuse Patient Records regulations: The Federal rules restrict any use of the information to criminally investigate or prosecute any alcohol or drug abuse patient.[facility] HospitalIn the event this information is protected by the Federal Confidentiality of Alcohol and Drug Abuse Patient Records regulations: The Federal rules restrict any use of the information to criminally investigate or prosecute any alcohol or drug abuse patient.[facility] HospitalIn the event this information is protected by the Federal Confidentiality of Alcohol and Drug Abuse Patient Records regulations: The Federal rules restrict any use of the information to criminally investigate or prosecute any alcohol or drug abuse patient.[facility] HospitalIn the event this information is protected by the Federal Confidentiality of Alcohol and Drug Abuse Patient Records regulations: The Federal rules restrict any use of the information to criminally investigate or prosecute any alcohol or drug abuse patient.[facility] Reason for Visit (unrecogniz ed section and content) Reason Comments Menstrual Problem irregular menses Reason Comments Care Reason Comments Abnormal Pap Reason Comments 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 Ultrasound Specialty Diagnoses / Procedures Referred By Obdulia t Referred To Contact [facility] Diagnoses Encounter to determine viability of , single or unspecified fetus Procedures OBSTETRIC ULTRASOUND WHI US PREG UTERUS AFTER 1ST TRIMEST GESTATION Maritza Richard APRN.CNM [address] [place] [address] [facility] [employer] [place] [address] Referral ID Status Reason Start Date Expiration Date V isits Requested Visits Authorized [id number] Closed Auto-Generate d Referral 02/18/2023 02/18/2024 1 1 Reason Onset Date Comments Care 03/25/2023 Reason Comments US Specialty Diagnoses / Procedures Referred By Contac t Referred To Contact [facility] Diagnoses 8 weeks gestation of Procedures NUCHAL TRANSLUCENCY WHI US NUCHAL TRANSLUCENCY 1ST GESTATION Maritza Richard APRN.CNM [address] [place] [address] [facility] [address] [employer] [place] [address] Referral ID Status Reason Start Date Expiration Date V isits Requested Visits Authorized [id number] Closed Auto-Generate d Referral 02/18/2023 02/18/2024 1 1 Reason Onset Date Comments Care 04/21/2023 Reason Onset Date Comments Care 05/26/2023 Specialty Diagnoses / Procedures Referred By Contac t Referred To Contact [facility] Diagnoses 15 weeks gestation of Procedures OBSTETRIC ULTRASOUND WHI US PREG UTERUS AFTER 1ST TRIMEST GESTATION Maritza Richard [employer].CNM [address] [place] [address] [facility] [address] [place] [address] Referral ID Status Reason Start Date Expiration Date V isits Requested Visits Authorized [id number] Closed Auto-Generate d Referral 04/21/2023 04/20/2024 1 1 Reason Comments Breast Pump Reason Comments Orders Reason Onset Date Comments Care 06/23/2023 Specialty Diagnoses / Procedures Referred By Contac t Referred To Contact [facility] Diagnoses Encounter for follow-up ultrasound of anatomy Procedures OBSTETRIC ULTRASOUND WHI US PREG UTERUS AFTER 1ST TRIMEST GESTATION Dulce Shannon, [employer]RA[employer]ER.RESIDENTIAL HOUSEKEEPER [address] [place] [address] [facility] [address] [place] [address] Referral ID Status Reason Start Date Expiration Date V isits Requested Visits Authorized [id number] Closed Auto-Generate d Referral 06/14/2023 06/13/2024 1 1 Reason Comments OB - spotting Reason Onset Date Comments Care 07/12/2023 Reason Onset Date Comments Care 08/18/2023 Reason Onset Date Comments Care 09/01/2023 Reason Comments Results Reason Onset Date Comments Care 09/13/2023 Specialty Diagnoses / Procedures Referred By Contac t Referred To Contact [facility] Diagnoses Supervision of high risk in third trimester History of thyroid disease Procedures OBSTETRIC ULTRASOUND WHI US PREG UTERUS AFTER 1ST TRIMEST GESTATION Lon Aranda, [employer]SEM[employer].RESIDENTIAL HOUSEKEEPER [address] [place] [address] [facility] [address] [place] [address] Referral ID Status Reason Start Date Expiration Date V isits Requested Visits Authorized [id number] Closed Auto-Generate d Referral 09/01/2023 08/31/2024 5 1 Reason Onset Date Comments Care 09/20/2023 Reason Comments Population Health Navigation Outreach Pe ds/OB Reason Onset Date Comments Care 09/27/2023 Reason Onset Date Comments Care 10/05/2023 Reason Comments Abnormal Pap Reason Comments Appointment Patient Update Reason Comments Viral Syndrome Sore throat, fever, vomiting, body aches started yesterday Reason Comments Patient Update Care Teams (unrecognized sec tion and content) Client Development Consultant Relationship Specialty Start Date End Date [facility] Psychiatry 10/05/19 Client Development Consultant Relationship Specialty Start Date End Date [facility] Psychiatry 10/05/19 Client Development Consultant Relationship Specialty Start Date End Date [facility] Psychiatry 10/05/19 Client Development Consultant Relationship Specialty Start Date End Date [facility] Psychiatry 10/05/19 Client Development Consultant Relationship Specialty Start Date End Date [facility] Psychiatry 10/05/19 Client Development Consultant Relationship Specialty Start Date End Date [facility] Psychiatry 10/05/19 Client Development Consultant Relationship Specialty Start Date End Date [facility] Psychiatry 10/05/19 Client Development Consultant Relationship Specialty Start Date End Date [facility] Psychiatry 10/05/19 Client Development Consultant Relationship Specialty Start Date End Date [facility] Psychiatry 10/05/19 Client Development Consultant Relationship Specialty Start Date End Date [facility] Psychiatry 10/05/19 Client Development Consultant Relationship Specialty Start Date End Date [facility] Psychiatry 10/05/19 Client Development Consultant Relationship Specialty Start Date End Date [facility] Psychiatry 10/05/19 Client Development Consultant Relationship Specialty Start Date End Date [facility] Psychiatry 10/05/19 Client Development Consultant Relationship Specialty Start Date End Date [facility] Psychiatry 10/05/19 Client Development Consultant Relationship Specialty Start Date End Date [facility] Psychiatry 10/05/19 Client Development Consultant Relationship Specialty Start Date End Date [facility] Psychiatry 10/05/19 Client Development Consultant Relationship Specialty Start Date End Date [facility] Psychiatry 10/05/19 Team Status: Active Member Role Status Dates No Primary Care Physician Family Provider Active No Primary Care Physician Primary Care Provider Active Team Status: Inactive Member Role Status Dates No Primary Care Physician Primary Care Provider Active Cortney Cash CNM Admit Provider, At tending Provider, Referring Provider Active FOR RECORDS PERTAINING TO PATIENTS WHO ARE OR HAVE BEEN ENROLLED IN A CHEMICAL DEPENDENCY/SUBSTANCEABUSE PROGRAM, SOME INFORMATION MAY BE OMITTED. This clinical summary was aggregated from multiple sources. Caution should be exercised in using it in the provision of clinical care. This summary normalizes information from multiple sources, and as a consequence, information in this document may materially change the coding, format and clinical context of patient data. In addition, data may be omitted in some cases. CLINICAL DECISIONS SHOULD BE BASED ON THE PRIMARY CLINICAL RECORDS. [facility] [employer] [facility] provides no warranty or guarantee of the accuracy or completeness of information in this document.
[2025-07-28] MEDS: 0.9% Normal Saline (1000mL) 1,000 ML 999 ML IV (07:11)
[2025-07-28 07:12] LABS: Hematocrit 43.1 % (37-47); Hemoglobin 14.8 g/dL (12.0-15.0); Immature Granulocytes Count 0.010 X10^3/uL (0.0-0.0); Mean Corp Hgb Conc 34.3 g/dL (32-36); Mean Corpuscular Volume 88.3 fL (81-99); Mean Platelet Vol. 10.8 fl (6.2-12.0); NRBC Flagged by Analyzer 0 % (0-5); Platelet Count 229 K/mm3 (150-450); RBC Distribution Width CV 15.0 % (11.6-14.6); RBC Distribution Width SD 47.6 fl (35.1-43.9); Red Blood Count 4.88 M/mm3 (4.2-5.4); White Blood Count 7.5 K/mm3 (4.4-11.0)
[2025-07-28 07:28] LABS: BETA-HYDROXYBUTYRATE 0.2 mmol/L (0.0-0.3); Lipase 14 U/L (13-75)
[2025-07-28 07:29] LABS: AST(SGOT) 183 U/L (<=31); Alanine Aminotransfer ALT/SGPT 98 U/L (<=34); Albumin, Serum 4.5 g/dL (3.5-5.0); Alkaline Phosphatase 118 U/L (35-104); Anion Gap 14 (5-15); BUN 3 mg/dL (4-19); BUN/Creat Ratio 4.6 RATIO (10-20); Calcium,Total 9.8 mg/dL (7.6-11.0); Carbon Dioxide 22.7 mmol/L (21.0-32.0); Chloride 102 mmol/L (98-108); Estimated Creatinine Clearance 130.97 ml/min (50-250); Globulin 3.0 g/dL (2.2-4.2); Glucose 106 mg/dL (70-99); Potassium 3.8 mmol/L (3.3-5.1)
[2025-07-28 07:43] LABS: Alcohol, Blood (Medical)-Serum < 10.1 mg/dL (<=10.0)
--- NOTE | 2025-07-28 08:03 | HP.PCM.HOS_ITS ---
HPI - General General Date of Admission: 07/28/25 Date of Service: 07/28/25 Chief Complaint: acute alcohol withdrawal HPI Narrative LB TORO, is a 29 F with a PMH as outlined who presents via the ED on 07/28/2025 for acute alcohol detox. She was admitted with a complaint of nausea and vomitiing. She said she has intractable nausea and vomiting every time she tries withdrawing from alcohol. Also complained of dark stools. 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 She says she has been vomiting so frequently she had vomited up streaks of blood on a few occasions. Review of systems otherwise negative. States she had similar vomiting during her last detox when she was in a rehab facility. Vitals in the ED BP of 128/94, MT of 71, RR of 16 and temp of 98.1F. She was saturating at 98% on room air. CBC showed Hb of 14.8, wbc of 7.5 and platelets of 229. Chemistry showed sodium of 139 with potassium of 3.8 and bicarb of 22.7. Creatinine was 0.7. Total bilirubin was 0.67 with AST of 183, ALT of 98 and ALP of 118. Lipase was 14. Serum alcohol level was less than 10. She has been admitted to be managed for acute alcohol detox with risk of withdrawal. [facility] Medical History (spontaneous vaginal delivery) Thyroid disorder Alcohol abuse Anemia Post traumatic stress disorder (PTSD) BV (bacterial vaginosis) Family history of hearing loss at age younger than 7 years HPV (human papilloma virus) infection Bipolar disorder Home Medications Medication Instructions Recorded Last Taken Type NK 07/28/25 Unknown History Allergy/AdvReac Type Severity Reaction Status Date / Time No Known Allergies Allergy Verified 07/28/25 06:10 Social History (Updated 07/28/25 @ 06:[address] Josemanuel Delgado MD) Smoking Status: Current every day smoker tobacco type: cigarettes and e- cigarettes alcohol intake: current alcohol intake frequency: 3 or more drinks per day substance use type: marijuana ROS Constitutional Constitutional: Reports fatigue and malaise; Denies anorexia, change in weight, chills, fever(s) or weakness Eyes Eyes: Denies change in vision ENT HEENT: Denies dysphagia, headache(s) or sore throat Cardiovascular Cardiovascular: Denies chest pain, dyspnea on exertion, edema, orthopnea, palpitations, paroxysmal nocturnal dyspnea or rapid heart rate Respiratory/Chest Respiratory/Chest: Denies cough, dyspnea, shortness of breath at rest or shortness of breath with exertion Gastrointestinal Gastrointestinal: Reports hematemesis, nausea, vomiting and other Details: dark stools ; Denies abdominal pain, constipation or diarrhea Genitourinary Genitourinary: Denies dysuria Neurologic Neurologic: Denies confusion, dizziness, focal weakness, headache(s), numbness, seizures or syncope Psychiatric Psychiatric: Denies anxiety Vital Signs Vital Signs Vital Signs: 07/28/25 06:04 Temperature 98.1 F Temperature Source Oral Pulse Rate 71 Respiratory Rate 16 Blood Pressure 128/94 H Blood Pressure Mean 105 Pulse Ox 98 Oxygen Delivery Method Room Air Weight Weight: 181 lb 14.102 oz Body Mass Index (BMI) 28.5 Physical Exam Const alert, oriented x3 and no apparent distress General Appearance: cooperative HEENT normocephalic, head/scalp atraumatic, hearing grossly normal bilaterally and moist oral mucous membranes Mouth: oral and palatal mucosa normal Eyes EOMs intact bilaterally and conjunctivae normal Neck supple and no JVD Resp normal respiratory effort, no retractions, no use of accessory muscles and clear to auscultation bilaterally Cardio regular rate, regular rhythm, S1 normal heart sound, S2 normal heart sound and no murmurs GI normal to inspection, nondistended, normoactive bowel sounds, soft to palpation, non-tender and non-distended Extremity normal to inspection, full ROM and no clubbing, cyanosis or edema Neuro oriented x3, moves all extremities and no focal motor deficits Sensorium / Orientation: awake and alert Motor Exam: strength 5/5 throughout Psych affect normal Results Lab / Micro Data 07/28/25 07:04 07/28/25 07:04 Labs: Laboratory Results - last 24 hr 07/28/25 07:04: WBC 7.5, RBC 4.88, Hgb 14.8, Hct 43.1, MCV 88.3, MCH 30.3, MCHC 34.3, RDW Std Deviation 47.6 H, RDW Coeff of Steven 15.0 H, Plt Count 229, MPV 10.8, Immature Gran % (Auto) 0.100, Neut % (Auto) 82.9 H, Lymph % (Auto) 10.0 L, [place] % (Auto) 5.7, Eos % (Auto) 0.8, Baso % (Auto) 0.5, Absolute Neuts (auto) 6.2, Absolute Lymphs (auto) 0.75 L, Nucleated RBC % 0, Sodium 139, Potassium 3.8, Chloride 102, Carbon Dioxide 22.7, Anion Gap 14, BUN 3 L, Creatinine 0.70, Estim Creat Clear Calc 130.97, Est GFR (MDRD) Non-Af 120, BUN/Creatinine Ratio 4.6 L, Glucose 106 H, Calcium 9.8, Total Bilirubin 0.67, AST 183 H, ALT 98 H, A lkaline Phosphatase 118 H, Total Protein 7.4, Albumin 4.5, Globulin 3.0, Albumin/Globulin Ratio 1.5, Lipase 14, b-Hydroxybutyric mmol/L 0.2, Ethyl Alcohol < 10.1 Assessment & Plan Assessment/Plan (1) Alcohol dependence with withdrawal, uncomplicated: PLAN: Plan #Acute alcohol intoxication with risk of withdrawal * Admit to [facility]. Admitted with nausea and vomiting. Serum alcohol level is less than 0.01. * Started on alcohol withdrawal protocol with phenobarbital. Oral thiamine, folic acid and Multi-Jazzmine. * Adjunctive meds for symptomatic relief. * #Elevated liver enzymes * AST is 183 with ALT of 98 and ALP of 118. Total bilirubin is however only 0.67. * Likely due to chronic alcohol use. Should improve with cessation of alcohol * #Probable alcoholic gastritis * Patient complained of some epigastric pain and also said he had dark stools and during her incessant vomiting had some streaks of blood. She has had this before during previous detox. 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 * This patient on p.o. pantoprazole 40 mg daily. Check stool for occult blood. Hemoglobin today is 14.8. * #History of bipolar disorder: Per patient she is not on any medication. Follow- up with PCP for referral for medication as needed. DVT prophylaxis: Low risk. Encouraged to ambulate. Charges/Coding Visit Charges Inpatient E&M: 88402 Init Hosp L3
[2025-07-28 08:18] LABS: Mucous, Urine 0 SEEN /hpf (<or=2+); Red Blood Cells-Urine 0 SEEN /hpf (0-5)
[2025-07-28 08:19] LABS: Prothrombin Time (Protime)PT. 14.5 SECONDS (11.7-14.9)
[2025-07-28 08:28] LABS: Color, Urine Yellow (Yellow); Glucose, Dipstick Normal (Normal); Ketone-Dipstick 5 mg/dl (Negative); Leukocyte Esterase-Dipstick 25 /ul (Negative); Nitrite-Dipstick Negative (Negative); Occult Blood-Urine 10 /ul (Negative); Protein-Dipstick 15 mg/dl (Negative); Specific Gravity, Urine 1.015 (1.002-1.030); Urine Bilirubin Dipstick Negative (Negative)
--- OUTSIDE RECORDS SUMMARY | 2025-07-28 08:32 | XMS RPT_ITS | CCD ---
Author Organization [facility] Care Team Providers Care Mica Plate Layer Hand Name Role Phone Unavailable Primary Care Provider [...] Comment on above: Take 1 capsule by [facility] two times a day for 10 days. aspirin 81 mg delayed release oral tablet (20 sources) Platelet Aggregation Inhibitor, Nonsteroidal Anti-inflammatory Drug Start: 02-18-2023 take 2 tablets by mouth once daily aspirin, enteric coated (ASPIRIN, ENTERIC COATED) 81 mg EC tablet Take 2 tablets by mouth once daily. 60 tablet 5 02/18/2023 Active Comment on above: Take 2 tablets by [facility] once daily. doxylamine succinate 25 mg oral [...] Comment on above: Take 1 tablet by [facility] daily at bedtime. DULoxetine 30 mg delayed release oral capsule (1 source) Serotonin and Norepinephrine Reuptake Inhibitor Start: take 1 capsule by mouth once daily DULoxetine (CYMBALTA) 30 MG extended release capsule Take 1 capsule by mouth daily 30 capsule 0 2020 Active Start: 2020 take 1 capsule by [facility] once daily DULoxetine (CYMBALTA) 30 MG extended [...] on above: Take 1 capsule by mo [facility] once daily. metroNIDAZOLE 500 mg oral [...] after taking medication to eat or drink. ct32-tbvw ps-folate 1 29 mg iron- 1 mg chew (20 sources) Start: 02-19-20 23 zn24-hoqg ps-folate 1 29 mg iron- 1 mg chew Take 1 tablet by mouth once daily. 30 tablet 5 02/18/2023 Active Comment on above: Take 1 tablet by [facility] once daily. Vit,Cclj01-Jhej-Viukp (Prenatabs Fa) 1 TABLET tablet (1 source) Start: 05-29-20 18 take 1 tablet by mouth once daily Vit,Ivwa57-Jtja-B olic (Prenatabs Fa) 1 TABLET tablet Active [...] ity CNCOon 02-17-2024 CNCO Letter Text Normal [facility] CNPNon 02-15-2024 CNPN Telephone (WHQ) ERICA TORO ([id number]) 1995 F Date Time Provider Department 02/15/24 CARRIE FERNANDEZ WHQ During your visit today, we recorded the following information about you: Daquan Nenita 02/17/2024 11:54 AM Addendum 1st attempt to contact the patient to schedule colposcopy. Unable to reach patient, phone line unable to take calls at this time. Will attempt at later time. Nenita Butt [facility] Geotechnical Operating Engineer [facility] Nenita Pena 02/17/2024 11:55 AM Signed 2nd attempt to contact the patient to schedule colposcopy. [facility] sent 01/10- not read Unable to leave [facility], phone not in service. A letter will be mailed to home. Nenita [facility] Geotechnical Operating Engineer [facility] Allergies As of Date: 02/15/2024 (No Known Allergies) Date Reviewed: 01/18/2024 Reviewed by: Lakeisha Fortune APRN.WORLD GEOGRAPHY TEACHER - Fully Assessed Prescriptions as of 02/17/2024 [...] tablet by mouth daily at bedtime. - lk16-uxur ps-folate 1 29 mg iron- 1 mg [...] Encounter Status:Closed by NENITA PENA on 02/17/24 [facility] CNOVon 01-18-2024 CNOV Office Visit (WALKWA) ERICA TORO ([id number]) 1995 F Date Time Provider Department 01/18/24 8:15 AM LAKEISHA FORTUNE During your visit today, we recorded the following information about you: Temperature Pulse Respiration Blood pressure 98.6 degrees 97/minute 16/minute 125/86 Weight 70 kg Lakeisha Fortune APRN.WORLD GEOGRAPHY TEACHER 01/18/2024 8:44 AM Addendum Express Care Visit [...] bedtime. (Patient not taking: Reported on 11/24/2023) rw64-lgjk ps-folate 1 29 mg iron- 1 mg [...] tenderness or frontal sinus tenderness. Mouth/Throat: Lips: [place]. No lesions. Mouth: Mucous membranes are moist. [...] OTC co (more content not included)... Normal [facility] STREP A MOLECULAR (POC)on Procedural Control Valid [facility] Strep A (POCT) Positive Abnormal Negative [facility]20[facility] ER[facility]OR[facility] ([id number]) 1995 F Date Time Provider Department 01/03/24 [...] 3rd attempt and patient has not read Wikia message. Unable to leave message because voicemail is not set up. Letter sent via Wikia and mail. Anahy Wood RN Allergies As [...] tablet by mouth daily at bedtime. - st27-rmjd ps-folate 1 29 mg iron- 1 mg [...] Status:Closed by CHERELLE AN on 01/03/24 Normal [facility] CNOVon 12-28-2023 CNOV Office Visit (OBGYWM) ERICA TORO ([id number]) 1995 F Date Time Provider Department 12/28/23 11:40 AM KARI RAMOS During your visit today, we recorded the following information about you: Blood pressure Weight Last Period 100/62 70.8 kg 12/20/23 Kari Ramos MD 12/28/2023 12:18 PM Signed Remarketing Rep offered: Patient declines. Erica is a 28 [...] positive occurs test: negative Nexplanon lot #: [id number] Exp date: 09/23/25 [facility]: [id number] UNIVERSAL PROTOCOL / SAFETY CHECKLIST Procedure to [...] 7 days to prevent Referring Provider: GRACY RIVAS [[id number]] Allergies As of Date: 12/28/2023 (No Known Allergies) Date Reviewed: 12/28/2023 Reviewed by: Priyanka Doe LPN - Fully Assessed Reason for Visit: nexplanon insertion [Other] Primary Visit Diagnosis:Insertion of implantable subdermal contraceptive [Z30.017] Order(s):NEXPLANON INSERTION [[id number]] Order #: [id number] [] etonogestrel subdermal implant 68 mg (NEXPLANON)Disp: Rfl: etonogestrel (NEXPLANON) subdermal implant 68 mg1 Each by SUBDERMAL route as directed.Disp: 1 EachRfl: 0 UA DIP,URINE HCG (POC) [[id number]] Order #: [id number]. #:[id number] Prescriptions as of 12/28/2023 - etonogestrel (NEXPLANON) subdermal implant 68 mg 1 Each by SUBDERMAL route as directed. - Lactobacillus acidophilus (FLORAJEN ACIDOPHILUS) 20 billion cell cap Take 1 capsule by mouth once daily. - doxylamine (UNISOM, DOXYLAMINE,) 25 mg tab Take 1 tablet by mouth daily at bedtime. - vt27-lvdb ps-folate 1 29 mg iron- 1 mg [...] of pre (more content not included)... Normal [facility] CNCOon 12-06-2023 CNCO Letter Text Normal [facility] CNPNon 12-06-2023 CNPN Telephone (OBGYWM) ERICA TORO ([id number]) 1995 F Date Time Provider Department 12/06/23 [...] for patient is currently not accepting calls. [employer] message and letter sent. Appointment note for [...] tablet by mouth daily at bedtime. - su66-yoof ps-folate 1 29 mg iron- 1 mg [...] Status:Closed by MARII GONSALES on 12/21/23 Normal [facility] HPV W/GENOTYPE THIN PREPon 0 11-24-2023 HPV 16 Ag Ql (Unsp spec) Negative Normal Negative for HPV DNA high risk type 16 by PCR [facility] Comment on above: Order Comment: Speci men Type: FLUID SPECIMEN Ordering Facility: [facility] Address: [address] [place] [address] Performed By: #### H PVHRT, [id number] #### [facility] CLIA [id number] [address] [place] [address] [place] HPV 18 Ag Ql (Unsp spec) Negative Normal Negative for HPV DNA high risk type 18 by PCR [facility] Comment on above: Order Comment: Speci men Type: FLUID SPECIMEN Ordering Facility: [facility] Address: [address] [place] [address] Performed By: #### H PVHRT, [id number] #### [facility] CLIA [id number] [address] [place] [address] [place] HPV 31+33+35+39+45+51+52+56 +58+59+66+68 DNA ODILON+probe Ql (Cvx) Positive for one or more of the following HPV DNA high risk types:31,33,35,39,45 ,51,52,56,58,59,66,6 8 by PCR Abnormal Negative for HPV DNA high risk types: 31,33,35,39,45,5 1,52,56,58,59,66 ,68 by PCR. [facility] Comment on above: Order Comment: Speci men Type: FLUID SPECIMEN Ordering Facility: [facility] Address: [address] [place] [address] Performed By: #### H PVHRT, [id number] #### [facility] CLIA [id number] [address] [place] [address] [place] PAP TESTon 11-24-2023 ADEQUACY Satisfactory for interpretation Normal [facility] Comment on above: Order Comment: Speci men Type: FLUID SPECIMEN Ordering Facility: [facility] Address: [address] [place] [address] Performed By: #### H PVHRT, [id number] #### [facility] CLIA [id number] [address] [place] [address] [place] CASE REPORT Normal [facility] Comment on above: Order Comment: Speci men Type: FLUID SPECIMEN Ordering Facility: [facility] Address: [address] [place] [address] Result Comment: Gyne cologic Cytology Report Case: [id number] Authorizing Provider: Gracy Rivas, Collected: 11/24/2023 04:46 PM Ordering Location: OB/Gynecology Received: 11/25/2023 08:50 AM First Screen: Cathy Cosby, CT, ASCP Pathologist: Kisha Fox MD Specimen: Pap Test, ThinPrep, Cervix Performed By: #### H PVHRT, [id number] #### [facility] CLIA [id number] [address] [place] [address] [place] CLINICAL HISTORY, CYTOLOGY, CRUSHING MACHINE OPERATOR Normal [facility] Comment on above: Order Comment: Speci men Type: FLUID SPECIMEN Ordering Facility: [facility] Address: [address] [place] [address] Performed By: #### H PVHRT, [id number] #### [facility] CLIA [id number] [address] [place] [address] [place] DIAGNOSIS COMMENT Suggest colposcopy/biopsy as clinically indicated. Results from the ASCUS/LSIL triage study found that interpretations of ASC-H were associated with a higher risk of underlying HSIL (JAMIE 2 or worse; 30-40%). Normal [facility] Comment on above: Order Comment: Speci men Type: FLUID SPECIMEN Ordering Facility: [facility] Address: [address] [place] [address] Performed By: #### H PVHRT, [id number] #### [facility] CLIA [id number] [address] [place] [address] [place] FINAL PERFORMING LAB Normal [facility] Comment on above: Order Comment: Speci men Type: FLUID SPECIMEN Ordering Facility: [facility] Address: [address] [place] [address] Result Comment: Tech nical component, multimedia coordinator screening performed at [facility], [address] [place], [place] [id number] CLIA# [id number] Diagnostic interpretation performed at [facility], [address] [place] [address] CLIA# [id number] Appointment Clerk: Russell Davila M.D. Performed By: #### H PVHRT, [id number] #### [facility] CLIA [id number] [address] [place], [place] [id number] [place] HPV REFLEX Yes HPV Normal [facility] Comment on above: Order Comment: Speci men Type: FLUID SPECIMEN Ordering Facility: [facility] Address: [address] [place] [address] Performed By: #### H PVHRT, [id number] #### [facility] CLIA [id number] [address] [place] [address] [place] INTERPRETATION, CYTOLOGY, CRUSHING MACHINE OPERATOR Abnormal [facility] Comment on above: Order Comment: Speci men Type: FLUID SPECIMEN Ordering Facility: [facility] Address: [address] [place] [address] Result Comment: Atyp ical squamous cells cannot exclude high grade squamous intraepithelial lesion (ASC-H); see comment. Performed By: #### H PVHRT, [id number] #### [facility] CLIA [id number] [address] [place] [address] [place] PAP DISCLAIMER COMMENT The Pap Smear is a screening test for cervical cancer. False negative results occur with all screening tests, emphasizing the need for rescreening at recommended intervals, and clinical correlation. Normal [facility] Comment on above: Order Comment: Speci men Type: FLUID SPECIMEN Ordering Facility: [facility] Address: [address] [place] [address] Performed By: #### H PVHRT, [id number] #### [facility] CLIA [id number] [address] [place] [address] [place] PAP GENERAL CATEGORIZATION Epithelial Cell Abnormality Normal [facility] Comment on above: Order Comment: Speci men Type: FLUID SPECIMEN Ordering Facility: [facility] Address: [address] [place] [address] Performed By: #### H PVHRT, [id number] #### [facility] CLIA [id number] [address] [place] [address] [place] Absolute lymphocyte countOrd ered By: Cortney Cash on 10-06-2023 Lymphocytes Auto (Unsp spec) [#/Vol] 1.20 10*3/uL 0.83-4.51 [facility] Basophil percentageOrdered B y: Cortney Cash on 10-06-2023 Basophils/100 WBC (Bld) 0.3 % 0-1 [facility] Eosinophils/100 WBC (Bld) 0.5 % 0-5 [facility] Neutrophils (Bld) [#/Vol] 7.8 10*3/uL 2.0-7.7 [facility] Neutrophils/100 WBC (Bld) 81.4 % 47-70 [facility] WBC (Bld) [#/Vol] 9.6 10*3/uL 4.4-11.0 [facility] Blood erythrocytes count (nu mber/volume)Ordered By: Cortney Cash on 10-06-2023 RBC (Bld) [#/Vol] 5.07 10*6/uL 4.2-5.4 [facility] Blood hemoglobin measurement (mass/volume)Ordered By: Cortney Cash on 10-06-2023 Hemoglobin (Bld) [Mass/Vol] 11.4 g/dL 12.0-15.0 [facility] Blood lymphocytes/100 leukoc ytesOrdered By: Cortney Cash on 10-06-2023 Lymphocytes/100 WBC (Bld) 12.5 % 19-41 [facility] Blood monocytes/100 leukocyt esOrdered By: Cortney Cash on 10-06-2023 Monocytes/100 WBC (Bld) 5.0 % 0-10 [facility] Blood platelet mean volumeOr dered By: Cortney Cash on 10-06-2023 Platelet mean volume (Bld) [Entitic vol] 11.8 fL 6.2-12.0 [facility] CBC W/Diff, Automatedon 09-24 Absolute Lymph 1.20 X10 3/uL Normal 0.83-4.51 [facility] Comment on above: Performed By: #### B TS, L100.0100 #### [facility] [employer] [place], [address] Absolute Neut 7.8 X10 3/uL High 2.0-7.7 [facility] Comment on above: Performed By: #### Donny DELUNA, L100.0100 #### [facility] [address] [place], [address] Basophils/100 WBC (Bld) 0.3 % Normal 0-1 [facility] Comment on above: Performed By: #### Donny DELUNA, L100.0100 #### [facility] [address] [place], [address] Eosinophils/100 WBC (Bld) 0.5 % Normal 0-5 [facility] Comment on above: Performed By: #### Donny DELUNA, L100.0100 #### [facility] [address] [place], [address] Erythrocyte distribution width (RBC) [Ratio] 17.4 % High 11.6-14.6 [facility] Comment on above: Performed By: #### Donny DELUNA, L100.0100 #### [facility] [address] [place], [address] Hematocrit (Bld) [Volume fraction] 37.4 % Normal 37-47 [facility] Comment on above: Performed By: #### Donny DELUNA, L100.0100 #### [facility] [address] [place], [address] Hemoglobin (Bld) [Mass/Vol] 11.4 g/dL Low 12.0-15.0 [facility] Comment on above: Performed By: #### Donny DELUNA, L100.0100 #### [facility] [address] [place], [address] IG% 0.300 Normal 0.0-0.9 [facility] Comment on above: Result Comment: IG% - Immature Granulocytes (promyelocytes, myelocytes and metamyelocytes) > 1% indicates that a LEFT SHIFT is Present. Performed By: #### Donny DELUNA, L100.0100 #### [facility] [address] [place], [address] Lymphocytes/100 WBC (Bld) 12.5 % Low 19-41 [facility] Comment on above: Performed By: #### Donny DELUNA, L100.0100 #### [facility] [address] [place], [address] MCH (RBC) [Entitic mass] 22.5 pg Low 27.0-32.0 [facility] Comment on above: Performed By: #### Donny DELUNA, L100.0100 #### [facility] [address] [place], [address] MCHC (RBC) [Mass/Vol] 30.5 g/dL Low 32-36 [facility] Comment on above: Performed By: #### Donny DELUNA, L100.0100 #### [facility] [address] [place], [address] MCV (RBC) [Entitic vol] 73.8 fL Low 81-99 [facility] Comment on above: Performed By: #### Donny DELUNA, L100.0100 #### [facility] [address] [place], [address] Monocytes/100 WBC (Bld) 5.0 % Normal 0-10 [facility] Comment on above: Performed By: #### Donny DELUNA, L100.0100 #### [facility] [address] [place], [address] Neutrophils/100 WBC (Bld) 81.4 % High 47-70 [facility] Comment on above: Performed By: #### Donny DELUNA, L100.0100 #### [facility] [address] [place], [address] Nucleated RBC (Bld) [#/Vol] 0 10*3/uL Normal 0-5 [facility] Comment on above: Performed By: #### Donny DELUNA, L100.0100 #### [facility] [address] [place], [address] Platelet mean volume (Bld) [Entitic vol] 11.8 fL Normal 6.2-12.0 [facility] Comment on above: Performed By: #### Donny DELUNA, L100.0100 #### [facility] [address] [place], [address] Platelets (Bld) [#/Vol] 180 10*3/uL Normal 150-450 [facility] Comment on above: Performed By: #### Donny DELUNA, L100.0100 #### [facility] [address] [place], [address] RBC (Bld) [#/Vol] 5.07 10*6/uL Normal 4.2-5.4 [facility] Comment on above: Performed By: #### Donny DELUNA, L100.0100 #### [facility] [address] [place], [address] RDW SD 45.9 fl High 35.1-43.9 [facility] Comment on above: Performed By: ###Toby DELUNA, L100.0100 #### [facility] [address] [place], [address] WBC (Bld) [#/Vol] 9.6 10*3/uL Normal 4.4-11.0 [facility] Comment on above: Performed By: #### Donny DELUNA, L100.0100 #### [facility] [address] [place], [address] Cara 10-06-2023 MARCOS Telephone (OBGYWM) CORTEZERICA Joaquin ([id number]) 1995 F Date Time Provider Department 10/06/23 [...] was 3.5/80%/-2. [facility] BRANNON called and notified. EMILY Zepeda Danielle, [...] tablet by mouth daily at bedtime. - kt65-ghmn ps-folate 1 29 mg iron- 1 mg [...] Encounter Status:Closed by MARII GONSALES on 10/06/23 [facility] Determination of erythrocyte mean corpuscular volume (MCV)Ordered By: Cortney Cash on 10-06-2023 MCV (RBC) [Entitic vol] 73.8 fL 81-99 [facility] H AND P Exam - OB/GYNon 09-24 H&P Exam - WHEAT SHIPPER [facility] Medical Records Department [address] [place] [address] H P Exam - WHEAT SHIPPER 10/06/23 1643 MR#: [id number] Acct: [id number] Name: ERICA TORO Rep #: [id number] : 1995 27 From: Cortney Cash CNM PCP: Care Physician,No Primary Status:ADM IN Location: [id number] HPI - General General Date of Admission: [...] movement Cardio (more content not included)... Normal [facility] Hematocrit Auto (Bld) [Volum e fraction]Ordered By: Cortney Cash on 10-06-2023 Hematocrit (Bld) [Volume fraction] 37.4 % 37-47 [facility] L509.8000on 10-06-2023 Syphilis Abs Non-Reactive Normal [facility] Comment on above: Performed By: #### L 509.8000 #### [facility] [address] [facility] [place], [address] Laboratory - Hematology and Cell countsOrdered By: Cortney Cash on 10-06-2023 Erythrocyte distribution width (RBC) [Entitic vol] 45.9 fL 35.1-43.9 [facility] Erythrocyte distribution width (RBC) [Ratio] 17.4 % 11.6-14.6 [facility] Immature granulocytes/100 WBC (Bld) 0.300 % 0.0-0.9 [facility] Comment on above: IG% - Immature Granu locytes (promyelocytes, myelocytes and metamyelocytes) > 1% indicates that a LEFT SHIFT is Present. MCH (RBC) [Entitic mass] 22.5 pg 27.0-32.0 [facility] Nucleated RBC/100 WBC (Bld) [Ratio] 0 % 0-5 [facility] MCHC Auto (RBC) [Mass/Vol]Or dered By: Cortney Cash on 10-06-2023 MCHC (RBC) [Mass/Vol] 30.5 g/dL 32-36 [facility] Operative Reporton 3 Operative Report [facility] Medical Records Department [address] [place] [address] Operative Report 10/06/23 1633 MR#: [id number] Acct: [id number] Name: ERICA TORO Rep #: [id number] : 1995 27 From: Cortney Cash CNDomonique PCP: Care Physician,No Primary Status:ADM IN Location: [id number] Assessment Plan (1) (spontaneous vaginal delivery): (2) [...] Cash; No Primary Care Physician Signed Normal [facility] Platelets bldOrdered By: Leana Cash on 10-06-2023 Platelets (Bld) [#/Vol] 180 10*3/uL 150-450 [facility] Serum Treponema species anti body detectionOrdered By: Cortney Cash on 10-06-2023 Treponema sp Ab Ql (S) Non-Reactive [facility] Type AND Screenon 10-06-2023 ABO and Rh group Nom (Bld) Blood group A Rh(D) positive Normal [facility] Comment on above: Order Comment: Labor Performed By: #### B TS, L100.0100 #### [facility] [address] [place], [address] URINE OB DIP B/Oon 3 Glucose Ql (U) Negative Neg mg/dL [facility] Protein.monoclonal (U) [Mass/Vol] Negative Neg mg/dL [facility] URINE OB DIP B/Oon 3 Glucose Ql (U) Negative Neg mg/dL [facility] Protein.monoclonal (U) [Mass/Vol] Negative Neg mg/dL [facility] OBSTETRIC ULTRASOUND WHIon 1 11-20-2022 [facility] URINE OB DIP B/Oon 3 Glucose Ql (U) Negative Neg mg/dL [facility] Protein.monoclonal (U) [Mass/Vol] Negative Neg mg/dL [facility] CNPSlime 09-14-2023 MARCOS Telephone (OBGYWM) ERICA TORO ([id number]) 1995 F Date Time Provider Department 09/14/23 [...] tablet by mouth daily at bedtime. - py45-usmn ps-folate 1 29 mg iron- 1 mg [...] by KARI BALDERAS RN on 09/14/23 Normal [facility] BACTERIAL VAGINOSIS NAATon 1 11-13-2022 Lactobacillus crispatus+gasseri+jense reema + Gardnerella vaginalis + Atopobium vaginae rRNA ODILON+probe Ql (Vag fld) Positive Abnormal Negative for bacterial vaginosis [facility] Comment on above: Order Comment: Speci men Type: SWABOrdering Facility: [facility] Address: [address] [place] [address] Performed By: #### B VAMP, CVTV ####[facility] [id number] [place] [address] [place] FRANCESCO/TRICHOMONAS NAATon 1 11-13-2022 C. glabrata RNA ODILON+probe Ql (Vag fld) Negative Normal Negative for Francesco glabrata [facility] Comment on above: Order Comment: Speci men Type: SWABOrdering Facility: [facility] Address: [address] [place] [address] Performed By: #### B VAMP, CVTV ####[facility] [id number] [place] [address] [place] Francesco sp DNA ODILON+probe Ql (Vag fld) Positive Abnormal Negative for Francesco species [facility] Comment on above: Order Comment: Speci men Type: SWABOrdering Facility: [facility] Address: [address] [place] [address] Performed By: #### B VAMP, CVTV ####[facility] [id number] [address] [place] T. vaginalis DNA ODILON+probe Ql (Unsp spec) Negative Normal Negative for Trichomonas vaginalis by amplification [facility] Comment on above: Order Comment: Speci men Type: SWABOrdering Facility: [facility] Address: [address] [place] [address] Performed By: #### B VAMP, CVTV ####[facility] [id number] [place] [address] [place] ROUTINE, GROUP B ST REP PCRon 09-13-2023 ROUTINE, GROUP B STREP PCR GROUP B STREP PCR: Negative for Group B Streptococcus by PCR. Normal [facility] Comment on above: Performed By: #### G BPCR ####[facility] LABCLIA [id number] [place] [address] [place] URINE OB DIP B/Oon 3 Glucose Ql (U) Negative Neg mg/dL [facility] Protein.monoclonal (U) [Mass/Vol] Negative Neg mg/dL [facility] CNPNon 09-02-2023 CNPN Telephone (OBGYWM) ERICA TORO ([id number]) 1995 F Date Time Provider Department 09/02/23 [...] tablet by mouth daily at bedtime. - [id number]-[id number] ps-folate 1 29 mg iron- 1 mg [...] by ANAHY WOOD RN on 09/02/23 Normal [facility] CBC panel Auto (Bld)on 09-01 Erythrocyte distribution width (RBC) [Ratio] 17.0 % High 11.5-15.0 [facility] Comment on above: Order Comment: Speci men Type: BLOOD SPECIMENOrdering Facility: [facility] Address: [address] [place] [address] Performed By: #### 5 8410-2 ####[facility] HOSPITALSANDYCandelario [id number] [address] [place] Hematocrit (Bld) [Volume fraction] 34.6 % Low 36.0-46.0 [facility] Comment on above: Order Comment: Speci men Type: BLOOD SPECIMENOrdering Facility: [facility] Address: [address] [place] [address] Performed By: #### 5 8410-2 ####[facility]ITALNCBL[facility] [id number] [place] [address] [place] Hemoglobin (Bld) [Mass/Vol] 10.5 g/dL Low 11.5-15.5 [facility] Comment on above: Order Comment: Speci men Type: BLOOD SPECIMENOrdering Facility: [facility] Address: [address] [place] [address] Performed By: #### 5 8410-2 ####[facility] HOSPITALKRISTI [id number] [place] [address] [place] MCH (RBC) [Entitic mass] 22.9 pg Low 26.0-34.0 [facility] Comment on above: Order Comment: Speci men Type: BLOOD SPECIMENOrdering Facility: [facility] Address: [address] [place] [address] Performed By: #### 5 8410-2 ####[facility]ITALNC[facility] [id number] [place] [address] [place] MCHC (RBC) [Mass/Vol] 30.3 g/dL Low 30.5-36.0 [facility] Comment on above: Order Comment: Speci men Type: BLOOD SPECIMENOrdering Facility: [facility] Address: [address] [place] [address] Performed By: #### 5 8410-2 ####[facility] HOSPITALNCLIA [id number] [place] [address] [place] MCV (RBC) [Entitic vol] 75.5 fL Low 80.0-100.0 [facility] Comment on above: Order Comment: Speci men Type: BLOOD SPECIMENOrdering Facility: [facility] Address: [address] [place] [address] Performed By: #### 5 8410-2 ####[facility]ITALNC[facility] [id number] [place] [address] [place] Nucleated RBC (Bld) [#/Vol] 10*3/uL Normal <0.01 [facility] Comment on above: Order Comment: Speci men Type: BLOOD SPECIMENOrdering Facility: [facility] Address: [address] [place] [address] Performed By: #### 5 8410-2 ####[facility] PARMINDERNCKRISTIA [id number] [place] [address] [place] Platelet mean volume (Bld) [Entitic vol] 11.6 fL Normal 9.0-12.7 [facility] Comment on above: Order Comment: Speci men Type: BLOOD SPECIMENOrdering Facility: [facility] Address: [address] [place] [address] Performed By: #### 5 8410-2 ####HERITAGE HOSPITALNCCandelario [id number] [place] [address] [place] Platelets (Bld) [#/Vol] 178 10*3/uL Normal 150-400 [facility] Comment on above: Order Comment: Speci men Type: BLOOD SPECIMENOrdering Facility: [facility] Address: [address] [place] [address] Performed By: #### 5 8410-2 ####[facility] HOSPITALNCLIA [id number] [place] [address] [place] RBC (Bld) [#/Vol] 4.58 10*6/uL Normal 3.90-5.20 [facility] Comment on above: Order Comment: Speci men Type: BLOOD SPECIMENOrdering Facility: [facility] Address: [address] [place] [address] Performed By: #### 5 8410-2 ####[facility] HOSPITALNCLIA [id number] [place] [address] [place] WBC (Bld) [#/Vol] 7.83 10*3/uL Normal 3.70-11.00 [facility] Comment on above: Order Comment: Speci men Type: BLOOD SPECIMENOrdering Facility: [facility] Address: [address] [place], [place] [address], [place] [address] Performed By: #### 5 8410-2 ####[facility] Y[facility]IV [facility] [id number] [place] [id number] [place] Erythrocyte distribution width (RBC) [Ratio] 17.0 % High 11.5 - 15.0 % [facility] Hematocrit (Bld) [Volume fraction] 34.6 % Low 36.0 - 46.0 % [facility] Hemoglobin (Bld) [Mass/Vol] 10.5 g/dL Low 11.5 - 15.5 g/dL [facility] MCH (RBC) [Entitic mass] 22.9 pg Low 26.0 - 34.0 pg [facility] MCHC (RBC) [Mass/Vol] 30.3 g/dL Low 30.5 - 36.0 g/ dL [facility] MCV (RBC) [Entitic vol] 75.5 fL Low 80.0 - 100.0 fL [facility] Nucleated RBC (Bld) [#/Vol] <0.01 k/uL [facility] Platelet mean volume (Bld) [Entitic vol] 11.6 fL 9.0 - 12.7 fL [facility] Platelets (Bld) [#/Vol] 178 10*3/uL 150 - 400 k /uL [facility] RBC (Bld) [#/Vol] 4.58 10*6/uL 3.90 - 5.20 m/uL [facility] WBC (Bld) [#/Vol] 7.83 10*3/uL 3.70 - 11. 00 k/uL [facility] CNPNon 09-01-2023 CNPN Telephone (YOUSIF) ERICA TORO ([id number]) 1995 F Date Time Provider Department 09/01/23 [...] hydrated and restoring electrolytes with a Body Scalf Lyte. Let me know if there are [...] tablet by mouth daily at bedtime. - [id number]-qqta ps-folate 1 29 mg iron- 1 mg [...] by KARI BALDERAS RN on 09/02/23 Normal [facility] Comprehensive metabolic 2000 panelon 09-01-2023 Albumin [Mass/Vol] 3.7 g/dL Low 3.9-4.9 [facility] Comment on above: Order Comment: Speci men Type: BLOOD SPECIMENOrdering Facility: [facility] Address: [address] [place] [address] Performed By: #### 2 4323-8, 2532-0 ####[facility] [id number] [place] [address] [place] ALP [Catalytic activity/Vol] 100 U/L Normal 34-123 [facility] Comment on above: Order Comment: Speci men Type: BLOOD SPECIMENOrdering Facility: [facility] Address: [address] [place] [address] Performed By: #### 2 4323-8, 2531-0 ####[facility] MARLYNWNCLIA [id number] [place] [address] [place] ALT [Catalytic activity/Vol] 6 U/L Low 7-38 [facility] Comment on above: Order Comment: Speci men Type: BLOOD SPECIMENOrdering Facility: [facility] Address: [address] [place] [address] Performed By: #### 2 4323-8, 2531-0 ####[facility] HOSPITALNCLIA [id number] [place] [address] [place] Anion gap [Moles/Vol] 11 mmol/L Normal 9-18 [facility] Comment on above: Order Comment: Speci men Type: BLOOD SPECIMENOrdering Facility: [facility] Address: [address] [place] [address] Performed By: #### 2 4323-8, 2531-0 ####[facility] HOSPITALNCLIA [id number] [place] [address] [place] AST [Catalytic activity/Vol] 15 U/L Normal 13-35 [facility] Comment on above: Order Comment: Speci men Type: BLOOD SPECIMENOrdering Facility: [facility] Address: [address] [place] [address] Performed By: #### 2 4323-8, 2531-0 ####[facility] HOSPITALNCLIA [id number] [place] [address] [place] Bilirubin [Mass/Vol] 0.3 mg/dL Normal 0.2-1.3 [facility] Comment on above: Order Comment: Speci men Type: BLOOD SPECIMENOrdering Facility: [facility] Address: [address] [place] [address] Performed By: #### 2 432-8, 2531-0 ####[facility] YANIV MILLTOWNCLIA [id number] [place] [address] [place] Calcium [Mass/Vol] 8.4 mg/dL Low 8.5-10.2 [facility] Comment on above: Order Comment: Speci men Type: BLOOD SPECIMENOrdering Facility: [facility] Address: [address] [place] [address] Performed By: #### 2 4328, 2531-0 ####[facility] MILLTOWNCLIA [id number] [place] [address] [place] Chloride [Moles/Vol] 104 mmol/L Normal 97-105 [facility] Comment on above: Order Comment: Speci men Type: BLOOD SPECIMENOrdering Facility: [facility] Address: [address] [place] [address] Performed By: #### 2 4328, 2531-0 ####[facility] MILLTOWNCLIA [id number] [place] [address] [place] CO2 [Moles/Vol] 20 mmol/L Low 22-30 [facility] Comment on above: Order Comment: Speci men Type: BLOOD SPECIMENOrdering Facility: [facility] Address: [address] [place] [address] Performed By: #### 2 4328, 2531-0 ####[facility] MILLTOWNCLIA [id number] [place] [address] [place] Creatinine [Mass/Vol] 0.48 mg/dL Low 0.58-0.96 [facility] Comment on above: Order Comment: Speci men Type: BLOOD SPECIMENOrdering Facility: [facility] Address: [address] [facility] [place] [address] Performed By: #### 2 4328, 2531-0 ####[facility] [id number] [place] [address] [place] Creatinine and Glomerular filtration rate.predicted panel (S/P/Bld) 133 mL/min/1.73m??? Normal >=60 [facility] Comment on above: Order Comment: Ambrosio dhaliwal Type: BLOOD SPECIMENOrdering Facility: [facility] Address: [address] [place] [address] Result Comment: Genevieve mated Glomerular Filtration Rate [...] GFR. Performed By: #### 2 4323-8, 2532-0 ####[facility] [id number] [place] [address] [place] Glucose [Mass/Vol] 74 mg/dL Normal 74-99 [facility] Comment on above: Order Comment: Ambrosio dhaliwal Type: BLOOD SPECIMENOrdering Facility: [facility] Address: [address] [place] [address] Result Comment: The [place] Diabetes [employer] (ADA) provides guidance for cutoff [...] Standards of Medical Care in Diabetes 2016, [place] [employer]. Diabetes Care. 2016.39(Suppl 1). Performed By: #### 2 4323-8, 2532-0 ####[facility] [id number] [place] [address] [place] Potassium [Moles/Vol] 3.5 mmol/L Low 3.7-5.1 [facility] Comment on above: Order Comment: Speci men Type: BLOOD SPECIMENOrdering Facility: [facility] Address: [address] [place] [address] Performed By: #### 2 4323-8, 2-0 ####[facility] MILLTOWNCLIA [id number] [place] [address] [place] Protein [Mass/Vol] 6.7 g/dL Normal 6.3-8.0 [facility] Comment on above: Order Comment: Speci men Type: BLOOD SPECIMENOrdering Facility: [facility] Address: [address] [place] [address] Performed By: #### 2 4323-8, 2531-0 ####[facility] MILLWSANDYLIA [id number] [place] [address] [place] Sodium [Moles/Vol] 135 mmol/L Low 136-144 [facility] Comment on above: Order Comment: Speci men Type: BLOOD SPECIMENOrdering Facility: [facility] Address: [address] [place] [address] Performed By: #### 2 4323-8, 2531-0 ####[facility] MILLANILWNCLIA [id number] [place] [address] [place] Urea nitrogen [Mass/Vol] 6 mg/dL Low 7-21 [facility] Comment on above: Order Comment: Speci men Type: BLOOD SPECIMENOrdering Facility: [facility] Address: [address] [place] [address] Performed By: #### 2 4323-8, 2532-0 ####[facility] MILLTOWNCLIA [id number] [place] [address] [place] Albumin [Mass/Vol] 3.7 g/dL Low 3.9 - 4.9 g/dL [facility] ALP [Catalytic activity/Vol] 100 U/L 34 - 123 U/L [facility] ALT [Catalytic activity/Vol] 6 U/L Low 7 - 38 U/L [facility] Anion gap [Moles/Vol] 11 mmol/L 9 - 18 mmol/L [facility] AST [Catalytic activity/Vol] 15 U/L 13 - 35 U/L [facility] Bilirubin [Mass/Vol] 0.3 mg/dL 0.2 - 1.3 mg/dL [facility] Calcium [Mass/Vol] 8.4 mg/dL Low 8.5 - 10.2 mg/dL [facility] Chloride [Moles/Vol] 104 mmol/L 97 - 105 mmol/L [facility] CO2 [Moles/Vol] 20 mmol/L Low 22 - 30 mmol/L [facility] Creatinine [Mass/Vol] 0.48 mg/dL Low 0.58 - 0.96 mg/dL [facility] Estimated Glomerular Filtration Rate 133 mL/min/1.73m >=60 mL/min/1.73m [facility] Glucose [Mass/Vol] 74 mg/dL 74 - 99 mg/dL [facility] Potassium [Moles/Vol] 3.5 mmol/L Low 3.7 - 5.1 mmol /L [facility] Protein [Mass/Vol] 6.7 g/dL 6.3 - 8.0 g/dL [facility] Sodium [Moles/Vol] 135 mmol/L Low 136 - 144 mmol/L [facility] Urea nitrogen [Mass/Vol] 6 mg/dL Low 7 - 21 mg/dL [facility] LD LACTATE DEHYDROon 023 LDH [Catalytic activity/Vol] 172 U/L 135 - 214 U/L [facility] LDH SerPl-cCncon 09-01-2023 LDH [Catalytic activity/Vol] 172 U/L Normal 135-214 [facility] Comment on above: Order Comment: Speci men Type: BLOOD SPECIMENOrdering Facility: [facility] Address: [address] [place] [address] Performed By: #### 2 4323-8, 2532-0 ####[facility] [id number] [place] [id number] [place] Prot/Creat Uron 09-01-2023 Protein/Creatinine (U) [Mass ratio] 0.11 mg/mg Normal <0.15 [facility] Comment on above: Order Comment: Speci men Type: URINE SPECIMENOrdering Facility: [facility] Address: [address] [place] [address] Result Comment: Adul t Proteinuria Categories: <0.15 mg/mg is considered normal to mildly increased 0.15 - 0.50 mg/mg is considered moderately increased >0.50 mg/mg is considered severely increased KDIGO. (2013). KDIGO 2012 Clinical Practice Guideline for the Evaluation and Management of Chronic Kidney Disease. Official Journal of the International Society of Nephrology, 3(1), 1-150. Performed By: #### 2 890-2 ####[facility] LABIA [id number] [place] [address] [place] Protein/Creatinine (U) [Mass ratio]on 09-01-2023 Creatinine (U) [Mass/Vol] 79.9 mg/dL Normal 20.0-300.0 [facility] Comment on above: Order Comment: Speci men Type: URINE SPECIMENOrdering Facility: [facility] Address: [address] [place] [address] Performed By: #### 2 890-2 ####[facility] LABIA [id number] [place] [address] [place] Protein (U) [Mass/Vol] 9 mg/dL Normal 0-20 [facility] Comment on above: Order Comment: Speci men Type: URINE SPECIMENOrdering Facility: [facility] Address: [address] [place] [address] Performed By: #### 2 890-2 ####[facility] LABIA [id number] [place] [address] [place] T4 Free SerPl-mCncon 023 Free T4 [Mass/Vol] 1.0 ng/dL Normal 0.9-1.7 [facility] Comment on above: Order Comment: Speci men Type: BLOOD SPECIMENOrdering Facility: [facility] Address: [facility] [place] [address] Performed By: #### 3 024-7, 3016-3 ####[facility] LABCLIA [id number] [place] [address] [place] TSH SerPl-aCncon 09-01-2023 TSH Qn 3.720 m[IU]/L Normal 0.270-4.200 [facility] Comment on above: Order Comment: Speci men Type: BLOOD SPECIMENOrdering Facility: [facility] Address: [place] [address] Result Comment: If t he patient is , TSH reference range varies by gestational period: First Trimester (weeks 9-12): 0.180-2.990 mIU/L Second Trimester: 0.110-3.980 mIU/L Third Trimester: 0.480-4.710 mIU/L Ed Gandhi et al. A Practical Approach for the Verifications and Determination of Site- and Trimester-Specific Reference Intervals for Thyroid Function tests in . Thyroid, 2019:29:3:412-420. Misha E, et al. 2017 Guidelines of the [place] Thyroid Association for the Diagnosis and Management of Thyroid Disease during and the . Thyroid, 2017:27:3:315-389. Performed By: #### 3 024-7, 3015-3 ####[facility] LABCLIA [id number] [place] [address] [place] URINE OB DIP B/Oon 3 Glucose Ql (U) Negative Neg mg/dL [facility] Protein.monoclonal (U) [Mass/Vol] Negative Neg mg/dL [facility] URINE OB DIP B/Oon 3 Glucose Ql (U) Negative Neg mg/dL [facility] Protein.monoclonal (U) [Mass/Vol] Negative Neg mg/dL [facility] CNPNon 07-22-2023 CNPN Telephone (OBGYWM) CORTEZERICA ([id number]) 1995 F Date Time Provider Department 07/22/23 [...] office for results. Pt was also sent Wikia message with results and further orders. Will await response from pt. Anahy Lackey LPN, RN 07/23/2023 4:59 PM Signed Patient did view Wikia message at 10:34 AM on 07/23/2023. Allergies As of Date: 07/22/2023 (No Known Allergies) Date Reviewed: 07/21/2023 Reviewed by: Marilyn Darden Ma - Fully Assessed Prescriptions as of 07/23/2023 - Lactobacillus acidophilus (FLORAJEN ACIDOPHILUS) 20 billion cell cap Take 1 capsule by mouth once daily. - doxylamine (UNISOM, DOXYLAMINE,) 25 mg tab Take 1 tablet by mouth daily at bedtime. - ky82-hhkq ps-folate 1 29 mg iron- 1 mg [...] by ANAHY WOOD RN on 07/23/23 Normal [facility] CBC W Auto Differential pane l (Bld)on 07-21-2023 Basophils (Bld) [#/Vol] 10*3/uL Normal <0.11 [facility] Comment on above: Order Comment: Speci men Type: BLOOD SPECIMENOrdering Facility: [facility] Address: [address] [place] [address] Performed By: #### 5 7021-8 ####[facility] C[facility] COUNTYWGALIA [id number] [place] [address] [place] Basophils/100 WBC (Bld) 0.3 % Normal [facility] Comment on above: Order Comment: Speci men Type: BLOOD SPECIMENOrdering Facility: [facility] Address: [address] [place] [address] Performed By: #### 5 7021-8 ####[facility] [id number] [place] [address] [place] Differential cell count method Nom (Bld) Auto Normal [facility] Comment on above: Order Comment: Speci men Type: BLOOD SPECIMENOrdering Facility: [facility] Address: [address] [place] [address] Performed By: #### 5 7021-8 ####[facility] [id number] [place] [address] [place] Eosinophils (Bld) [#/Vol] 0.06 10*3/uL Normal <0.46 [facility] Comment on above: Order Comment: Speci men Type: BLOOD SPECIMENOrdering Facility: [facility] Address: [address] [place] [address] Performed By: #### 5 7021-8 ####[facility] [id number] [place] [address] [place] Eosinophils/100 WBC (Bld) 0.8 % Normal [facility] Comment on above: Order Comment: Speci men Type: BLOOD SPECIMENOrdering Facility: [facility] Address: [address] [place] [address] Performed By: #### 5 7021-8 ####[facility] HOSPITALGHAZAL [id number] [place] [address] [place] Erythrocyte distribution width (RBC) [Ratio] 14.4 % Normal 11.5-15.0 [facility] Comment on above: Order Comment: Speci men Type: BLOOD SPECIMENOrdering Facility: [facility] Address: [address] [place] [address] Performed By: #### 5 7021-8 ####[facility] [id number] [place] [address] [place] Hematocrit (Bld) [Volume fraction] 31.6 % Low 36.0-46.0 [facility] Comment on above: Order Comment: Speci men Type: BLOOD SPECIMENOrdering Facility: [facility] Address: [address] [place] [address] Performed By: #### 5 7021-8 ####[facility] [id number] [place] [address] [place] Hemoglobin (Bld) [Mass/Vol] 10.0 g/dL Low 11.5-15.5 [facility] Comment on above: Order Comment: Speci men Type: BLOOD SPECIMENOrdering Facility: [facility] Address: [address] [place] [address] Performed By: #### 5 7021-8 ####[facility]ITALNCLIA [id number] [place] [address] [place] Immature granulocytes (Bld) [#/Vol] 0.04 10*3/uL Normal <0.10 [facility] Comment on above: Order Comment: Speci men Type: BLOOD SPECIMENOrdering Facility: [facility] Address: [address] [place] [address] Performed By: #### 5 7021-8 ####[facility] HOSPITALLIA [id number] [place] [address] [place] Immature granulocytes/100 WBC (Bld) 0.6 % Normal [facility] Comment on above: Order Comment: Speci men Type: BLOOD SPECIMENOrdering Facility: [facility] Address: [address] [place] [address] Performed By: #### 5 7021-8 ####[facility] [id number] [place] [address] [place] Lymphocytes (Bld) [#/Vol] 1.11 10*3/uL Normal 1.00-4.00 [facility] Comment on above: Order Comment: Speci men Type: BLOOD SPECIMENOrdering Facility: [facility] Address: [address] [place] [address] Performed By: #### 5 7021-8 ####[facility] [id number] [place] [address] [place] Lymphocytes/100 WBC (Bld) 15.7 % Normal [facility] Comment on above: Order Comment: Speci men Type: BLOOD SPECIMENOrdering Facility: [facility] Address: [address] [place] [address] Performed By: #### 5 7021-8 ####[facility] [id number] [place] [address] [place] MCH (RBC) [Entitic mass] 23.8 pg Low 26.0-34.0 [facility] Comment on above: Order Comment: Speci men Type: BLOOD SPECIMENOrdering Facility: [facility] Address: [address] [place] [address] Performed By: #### 5 7021-8 ####[facility] HOSPITALNCLI [id number] [place] [address] [place] MCHC (RBC) [Mass/Vol] 31.6 g/dL Normal 30.5-36.0 [facility] Comment on above: Order Comment: Speci men Type: BLOOD SPECIMENOrdering Facility: [facility] Address: [address] [place] [address] Performed By: #### 5 7021-8 ####[facility]OSPITALNCLI [id number] [place] [address] [place] MCV (RBC) [Entitic vol] 75.1 fL Low 80.0-100.0 [facility] Comment on above: Order Comment: Speci men Type: BLOOD SPECIMENOrdering Facility: [facility] Address: [address] [place] [address] Performed By: #### 5 7021-8 ####[facility] HOSPITALNCLI [id number] [place] [address] [place] Monocytes (Bld) [#/Vol] 0.68 10*3/uL Normal <0.87 [facility] Comment on above: Order Comment: Speci men Type: BLOOD SPECIMENOrdering Facility: [facility] Address: [address] [place] [address] Performed By: #### 5 7021-8 ####[facility]ITALNCLIA [id number] [place] [address] [place] Monocytes/100 WBC (Bld) 9.6 % Normal [facility] Comment on above: Order Comment: Speci men Type: BLOOD SPECIMENOrdering Facility: [facility] Address: [address] [place] [address] Performed By: #### 5 7021-8 ####[facility]ITALNCLIA [id number] [place] [address] [place] Neutrophils (Bld) [#/Vol] 5.16 10*3/uL Normal 1.45-7.50 [facility] Comment on above: Order Comment: Speci men Type: BLOOD SPECIMENOrdering Facility: [facility] Address: [address] [place] [address] Performed By: #### 5 7021-8 ####[facility] KALYAN [id number] [place] [address] [place] Neutrophils/100 WBC (Bld) 73.0 % Normal [facility] Comment on above: Order Comment: Speci men Type: BLOOD SPECIMENOrdering Facility: [facility] Address: [address] [address] Performed By: #### 5 7021-8 ####[facility] [id number] [place] [address] [place] Nucleated RBC (Bld) [#/Vol] 10*3/uL Normal <0.01 [facility] Comment on above: Order Comment: Speci men Type: BLOOD SPECIMENOrdering Facility: [facility] Address: [address] [address] Performed By: #### 5 7021-8 ####[facility] [id number] [place] [address] [place] Nucleated RBC/100 WBC (Bld) [Ratio] 0.0 /100 WBC Normal [facility] Comment on above: Order Comment: Speci men Type: BLOOD SPECIMENOrdering Facility: [facility] Address: [address] [place] [address] Performed By: #### 5 7021-8 ####[facility]ITALLI [id number] [place] [address] [place] Platelet mean volume (Bld) [Entitic vol] 10.9 fL Normal 9.0-12.7 [facility] Comment on above: Order Comment: Speci men Type: BLOOD SPECIMENOrdering Facility: [facility] Address: [address] [address] Performed By: #### 5 7021-8 ####[facility]PITALNCLIA [id number] [place] [address] [place] Platelets (Bld) [#/Vol] 192 10*3/uL Normal 150-400 [facility] Comment on above: Order Comment: Speci men Type: BLOOD SPECIMENOrdering Facility: [facility] Address: [address] [place] [address] Performed By: #### 5 7021-8 ####[facility]PITALNCLIA [id number] [address] [address] [place] RBC (Bld) [#/Vol] 4.21 10*6/uL Normal 3.90-5.20 [facility] Comment on above: Order Comment: Speci men Type: BLOOD SPECIMENOrdering Facility: [facility] Address: [address] [place] [address] Performed By: #### 5 7021-8 ####[facility] [id number] [place] [address] [place] WBC (Bld) [#/Vol] 7.07 10*3/uL Normal 3.70-11.00 [facility] Comment on above: Order Comment: Speci men Type: BLOOD SPECIMENOrdering Facility: [facility] Address: [address] [place] [address] Performed By: #### 5 7021-8 ####[facility]PITALNCLIA [id number] [place] [address] [place] GEST GLUC SCREEN, 1-HR, 50 G M, NON-FASTINGon 07-21-2023 Glucose [Mass/Vol] 84 mg/dL Normal 74-134 [facility] Comment on above: Order Comment: Speci men Type: BLOOD SPECIMENOrdering Facility: [facility] Address: [address] [place] [address] Result Comment: [place] Congress of Obstetricians and Gynecologists (Adrianna/Mandi) guidelines state a gestational diabetes mellitus positive screen is made, in women not previously diagnosed with overt diabetes, when the 1 hr plasma glucose level is equal to or above 140 mg/dL. The [facility] Copy Room Technician and [facility] [place] recommends a 135 mg/dL cutoff. Performed By: #### G LTGST ###[facility] LABORATORYCLIA [id number] [place] [address] [place] Reagin and Treponema pallidu m IgG and IgM [Interp]on 07-21-2023 T. pallidum IgG+IgM IA Ql (S) Non-Reactive Normal Nonreactive [facility] Comment on above: Order Comment: Speci men Type: BLOOD SPECIMENOrdering Facility: [facility] Address: [address] [address] Performed By: #### 7 3752-8 ####[facility] LABCLIA [id number] [place] [address] [place] Reagin+T pallidum IgG+IgM Se rPl-Impon 07-21-2023 Reagin and Treponema pallidum IgG and IgM [Interp] Cannot exclude recent Treponemal infection if specimen collected within 7-10 days after appearance of suspect lesions or 2-3 weeks after an exposure. Clinical correlation is required. Normal [facility] Comment on above: Order Comment: Speci men Type: BLOOD SPECIMENOrdering Facility: [facility] Address: [address] [address] Performed By: #### 7 3752-8 ####[facility] LABCLIA [id number] [place] [address] [place] BACTERIAL VAGINOSIS NAATon 0 07-12-2023 Lactobacillus crispatus+gasseri+jense reema + Gardnerella vaginalis + Atopobium vaginae rRNA ODILON+probe Ql (Vag fld) Positive Abnormal Negative for bacterial vaginosis [facility] Lactobacillus crispatus+gasseri+jense reema + Gardnerella vaginalis + Atopobium vaginae rRNA ODILON+probe Ql (Vag fld) Positive Abnormal Negative for bacterial vaginosis [facility] Comment on above: Order Comment: Speci men Type: SWABOrdering Facility: [facility] Address: [address] [place] [address] Performed By: #### C VTV, BVAMP ####[facility] LABCLIA [id number] [place] FRANCESCO/TRICHOMONAS NAATon 0 07-12-2023 C. glabrata RNA ODILON+probe Ql (Vag fld) Negative Negative for Francesco glabrata [facility] Francesco sp DNA ODILON+probe Ql (Vag fld) Positive Abnormal Negative for Francesco species [facility] T. vaginalis DNA ODILON+probe Ql (Unsp spec) Negative Negative for Trichomonas vaginalis by amplification [facility] C. glabrata RNA ODILON+probe Ql (Vag fld) Negative Normal Negative for Francesco glabrata [facility] Comment on above: Order Comment: Speci men Type: SWABOrdering Facility: [facility] Address: [address] [place] [address] Performed By: #### C VTV, BVAMP ####[facility] LABCLIA [id number] [place] [address] [place] Francesco sp DNA ODILON+probe Ql (Vag fld) Positive Abnormal Negative for Francesco species [facility] Comment on above: Order Comment: Speci men Type: SWABOrdering Facility: [facility] Address: [address] [place], [place] [address] Performed By: #### C VTV, BVAMP ####[facility] LABCLIA [id number] [address] [place] T. vaginalis DNA ODILON+probe Ql (Unsp spec) Negative Normal Negative for Trichomonas vaginalis by amplification [facility] Comment on above: Order Comment: Speci men Type: SWABOrdering Facility: [facility] Address: [address] [place] [address] Performed By: #### C VTV, BVAMP ####[facility] LABCLIA [id number] [address] [place] Cara 07-12-2023 CNPN Telephone (OBGYWM) ERICA TORO ([id number]) 1995 F Date Time Provider Department 07/12/23 [...] tablet by mouth daily at bedtime. - [id number]-asiy ps-folate 1 29 mg iron- 1 mg [...] by PRIYANKA DOE LPN on 07/12/23 Normal [facility] UA DIP, URINE (POC)on 2022 BILIRUBIN UA (POCT) Negative Negative [facility] CLARITY UA (POCT) Slightly Cloudy Cl [facility] COLOR UA (POCT) Yellow [facility] GLUCOSE UA (POCT) Negative Negative mg/dL [facility] Hemoglobin Ql (U) Negative Negative [facility] KETONE UA (POCT) Negative Negative mg/dL [facility] LEUKOCYTES UA (POCT) Trace Abnormal Negative [facility] NITRITE UA (POCT) Negative Negative [facility] PH UA (POCT) 6.5 4.5 - 8.0 [facility] Protein Ql (U) Negative Negative mg/dL [facility] SPECIFIC GRAVITY UA (POCT) 1.015 1.005 - 1.030 [facility] UROBILINOGEN UA (POCT) 2.0 E.U./dL Abnormal Normal E.U./ dL [facility] CNCOon 06-29-2023 CNCO Letter Text Normal [facility] OBSTETRIC ULTRASOUND WHIon 0 06-29-2023 [facility] URINE OB DIP B/Oon 3 Glucose Ql (U) Negative Neg mg/dL [facility] Protein.monoclonal (U) [Mass/Vol] Negative Neg mg/dL [facility] CNPNon 06-14-2023 NGUYENN Telephone (OBGYWM) ERICA TORO ([id number]) 1995 F Date Time Provider Department 06/14/23 DULCE SHANNON OBWILLIAN During your visit today, we recorded the following information about you: Allergies As of Date: 06/14/2023 (No Known Allergies) Date Reviewed: 05/26/2023 Reviewed by: Marilyn Darden Ma - Fully Assessed Reason for Visit: Orders [681] Primary Visit Diagnosis:Encounter for follow-up ultrasound of anatomy [Z36.2] Order(s):OBSTETRIC ULTRASOUND [facility] [[id number]] Order #: [id number]: 1 FUTURE Prescriptions as of 06/14/2023 - Lactobacillus acidophilus (FLORAJEN ACIDOPHILUS) 20 billion cell cap Take 1 capsule by mouth once daily. - doxylamine (UNISOM, DOXYLAMINE,) 25 mg tab Take 1 tablet by mouth daily at bedtime. - mq62-yqgl ps-folate 1 29 mg iron- 1 mg [...] Status:Closed by DULCE SHANNON on 06/14/23 [facility] CNPN Telephone (OBGYWM) ERICA TORO ([id number]) 1995 F Date Time Provider Department 06/02/23 CHASEMIKIECORTNEY OBGYWM During your visit today, we recorded the following information about you: Kari Balderas RN 06/02/2023 4:26 PM Signed d Received breast pump order from [employer]. To to sign. Kari Nunn RN, RN [...] tablet by mouth daily at bedtime. - cy84-zvrh ps-folate 1 29 mg iron- 1 mg [...] Status:Closed by KARI BALDERAS RN on 06/02/23 [facility] ALPHA FETOPRO MATERNALon AFP, MATERNAL 0.90 MoM Normal [facility] Comment on above: Order Comment: Speci men Type: BLOOD SPECIMENOrdering Facility: [facility] Address: [address] [address] Result Comment: 54.7 7 ng/mL Performed By: #### A FPMAT ####[facility] LABCLIA [id number] [address] OF [facility] DATE OF COLLECTION #1 05/26/23 Normal [facility] Comment on above: Order Comment: Speci men Type: BLOOD SPECIMENOrdering Facility: [facility] Address: [address] [address] Performed By: #### A FPMAT ####[facility] LABCLIA [id number] [place] [address] [place] DATE RECEIVED 05/27/23 Normal [facility] Comment on above: Order Comment: Speci men Type: BLOOD SPECIMENOrdering Facility: [facility] Address: [address] [address] Performed By: #### A FPMAT ####[facility] LABCLIA [id number] [address] [place] MEGAN 10/08/23 Normal [facility] Comment on above: Order Comment: Speci men Type: BLOOD SPECIMENOrdering Facility: [facility] Address: [address] [address] Performed By: #### A FPMAT ####[facility] LABCLIA [id number] [address] [place] GESTATION AT DATE OF SAMPLE 20 weeks 5 days (by scan) Normal [facility] Comment on above: Order Comment: Speci men Type: BLOOD SPECIMENOrdering Facility: [facility] Address: [address] [place] [address] Performed By: #### A FPMAT ####[facility] LABCLIA [id number] [place] [address] [place] INSULIN DEPENDENT DIABETES None Normal [facility] Comment on above: Order Comment: Speci men Type: BLOOD SPECIMENOrdering Facility: [facility] Address: [address] Performed By: #### A FPMAT ####[facility] LABCLIA [id number] [place] [address] [place] IVF No Normal [facility] Comment on above: Order Comment: Speci men Type: BLOOD SPECIMENOrdering Facility: [facility] Address: [address] Performed By: #### A FPMAT ####[facility] LABCL[facility] [id number] [address] [place] MATERNAL AFP COMMENT See comments below Normal [facility] Comment on above: Order Comment: Ambrosio dhaliwal Type: BLOOD SPECIMENOrdering Facility: [facility] Address: [address] [place] [address] Result Comment: INTE RPRETATION Screening result : Screen negative Risk of NTD : 1 in 6,100 Comment : The interpretation is for NTD only A screen negative result does not exclude the possibility of a neural tube defect, because screening does not detect all affected pregnancies Performed By: #### A FPMAT ####[facility] LABCLIA [id number] [place] [address] [place] MATERNAL AGE AT MEGAN 27 years Normal [facility] Comment on above: Order Comment: Ambrosio dhaliwal Type: BLOOD SPECIMENOrdering Facility: [facility] Address: [address] [place] [address] Performed By: #### A FPMAT ####[facility] LABCLIA [id number] [address] [place] PATIENT'S WEIGHT DAY OF COLLECTION 170 lb. Normal [facility] Comment on above: Order Comment: Ambrosio dhaliwal Type: BLOOD SPECIMENOrdering Facility: [facility] Address: [address] [place] [address] Performed By: #### A FPMAT ####[facility] LABCL[facility] [id number] [address] [place] INTERP-MATERNAL AFP Negative Normal Screen Negative [facility] Comment on above: Order Comment: Speci men Type: BLOOD SPECIMENOrdering Facility: [facility] Address: [address] [address] Performed By: #### A FPMAT ####[facility]CLIA [id number] [address] [place] PREVIOUS NTD None Normal [facility] Comment on above: Order Comment: Speci men Type: BLOOD SPECIMENOrdering Facility: [facility] Address: [address] [place] [address] Performed By: #### A FPMAT ####[facility] LABCLIA [id number] [address] [place] RISK OF NTD ;1:6100 Normal [facility] Comment on above: Order Comment: Speci men Type: BLOOD SPECIMENOrdering Facility: [facility] Address: [address] [place] [address] Performed By: #### A FPMAT ####[facility] LABCLIA [id number] [address] [place] SAMPLE #1 [id number] Normal [facility] Comment on above: Order Comment: Speci men Type: BLOOD SPECIMENOrdering Facility: [facility] Address: [address] [place] [address] Performed By: #### A FPMAT ####[facility] LABCLIA [id number] [address] [place] STAFF REVIEW (MATERNAL SCREENS) Reviewed by Matthew Turpin PhD Normal [facility] Comment on above: Order Comment: Speci men Type: BLOOD SPECIMENOrdering Facility: [facility] Address: [address] [place] [address] Performed By: #### A FPMAT ####[facility] LABCLIA [id number] [place] [address] [place] CNCOon 05-26-2023 CNCO Letter Text Letter Text Letter Text Normal [facility] OBSTETRIC ULTRASOUND WHIon 0 05-26-2023 [facility] URINE OB DIP B/Oon 3 Glucose Ql (U) Negative Neg mg/dL [facility] Protein.monoclonal (U) [Mass/Vol] Negative Neg mg/dL [facility] URINE OB DIP B/Oon 3 Glucose Ql (U) Negative Neg mg/dL [facility] Protein.monoclonal (U) [Mass/Vol] Negative Neg mg/dL [facility] CNPNon 04-06-2023 CNPN Telephone (OBGYWM) ERICA TORO ([id number]) 1995 F Date Time Provider Department 04/06/23 CORTNEY CASH During your visit today, we recorded the following information about you: Kari Balderas RN 04/06/2023 9:09 AM Signed 13w4d Patient viewed her vaginal cultures on Mychart and seen she was BV+ and yeast. Would like prescriptions sent to [facility] in [place]. Added to her pharmacy list. Please review [...] tablet by mouth daily at bedtime. - yr50-qvou ps-folate 1 29 mg iron- 1 mg [...] Status:Closed by CORTNEY CASH on 04/06/23 Normal [facility] BACTERIAL VAGINOSIS AMPLIFIC ATIONon 04-05-2023 Lactobacillus crispatus+gasseri+jense reema + Gardnerella vaginalis + Atopobium vaginae rRNA ODILON+probe Ql (Vag fld) Positive Abnormal Negative for bacterial vaginosis [facility] Comment on above: Order Comment: Speci men Type: SWABOrdering Facility: [facility] Address: [address] [place] [address] Performed By: #### B VAMP, CVTV ####[facility] LABCLIA [id number] [address] STATES OF [facility] FRANCESCO / TRICHOMONAS AMPLIF ICATIONon 04-05-2023 FRANCESCO / TRICHOMONAS AMPLIFICATION [employer] RNA: Positive for Francesco species FRANCESCO GLABRATA RNA: Negative for Francesco glabrata TRICH VAG AMPLIFICATION RNA: Negative for Trichomonas vaginalis by amplification Abnormal [facility] Comment on above: Performed By: #### B VAMP, CVTV ####[facility] LABCLIA [id number] [place] [address] [place] CNOVon 04-05-2023 CNOV Office Visit (OBGYWM) ERICA TORO ([id number]) 1995 F Date Time Provider Department 04/05/23 2:00 PM LEONARDO UPTON During your visit today, we recorded the following information about you: Blood pressure Weight 108/64 74.6 kg Leonardo Upton MD 04/05/2023 5:35 PM Signed Remarketing Rep offered: Patient declinesAbdulaziz Maldonado is a 27 [...] Visit: Colposcopy (more content not included)... Normal [facility] CBC panel Auto (Bld)on 03-25 Erythrocyte distribution width (RBC) [Ratio] 14.8 % Normal 11.5-15.0 [facility] Comment on above: Order Comment: Speci men Type: BLOOD SPECIMENOrdering Facility: [facility] Address: [address] [place] [address] Performed By: #### 5 8410-2 ####[facility] HOSPITALLIA [id number] [place] [address] [place] Hematocrit (Bld) [Volume fraction] 39.2 % Normal 36.0-46.0 [facility] Comment on above: Order Comment: Speci men Type: BLOOD SPECIMENOrdering Facility: [facility] Address: [address] [place] [address] Performed By: #### 5 8410-2 ####[facility] H[facility]ITALLIA [id number] [place] [address] [place] Hemoglobin (Bld) [Mass/Vol] 12.8 g/dL Normal 11.5-15.5 [facility] Comment on above: Order Comment: Speci men Type: BLOOD SPECIMENOrdering Facility: [facility] Address: [address] [place] [address] Performed By: #### 5 8410-2 ####[facility] H[facility]ITALLIA [id number] [place] [address] [place] MCH (RBC) [Entitic mass] 25.0 pg Low 26.0-34.0 [facility] Comment on above: Order Comment: Speci men Type: BLOOD SPECIMENOrdering Facility: [facility] Address: [address] [place] [address] Performed By: #### 5 8410-2 ####[facility]ITALLIA [id number] [place] [address] [place] MCHC (RBC) [Mass/Vol] 32.7 g/dL Normal 30.5-36.0 [facility] Comment on above: Order Comment: Speci men Type: BLOOD SPECIMENOrdering Facility: [facility] Address: [address] [place] [address] Performed By: #### 5 8410-2 ####[facility] HOSPITALGHAZAL [id number] [place] [address] [place] MCV (RBC) [Entitic vol] 76.7 fL Low 80.0-100.0 [facility] Comment on above: Order Comment: Speci men Type: BLOOD SPECIMENOrdering Facility: [facility] Address: [address] [place] [address] Performed By: #### 5 8410-2 ####[facility] HOSPITALSANDYCandelario [id number] [place] [address] [place] Nucleated RBC (Bld) [#/Vol] 10*3/uL Normal <0.01 [facility] Comment on above: Order Comment: Speci men Type: BLOOD SPECIMENOrdering Facility: [facility] Address: [address] [place] [address] Performed By: #### 5 8410-2 ####[facility] HOSPITALGHAZAL [id number] [place] [address] [place] Platelet mean volume (Bld) [Entitic vol] 11.2 fL Normal 9.0-12.7 [facility] Comment on above: Order Comment: Speci men Type: BLOOD SPECIMENOrdering Facility: [facility] Address: [address] [place] [address] Performed By: #### 5 8410-2 ####[facility]PITALSANDYBL[facility] [id number] [place] [address] [place] Platelets (Bld) [#/Vol] 216 10*3/uL Normal 150-400 [facility] Comment on above: Order Comment: Speci men Type: BLOOD SPECIMENOrdering Facility: [facility] Address: [address] [place] [address] Performed By: #### 5 8410-2 ####[facility]ITALNCLIA [id number] [place] [address] [place] RBC (Bld) [#/Vol] 5.11 10*6/uL Normal 3.90-5.20 [facility] Comment on above: Order Comment: Speci men Type: BLOOD SPECIMENOrdering Facility: [facility] Address: [address] [place] [address] Performed By: #### 5 8410-2 ####[facility] HOSPITALNCA [id number] [place] [address] [place] WBC (Bld) [#/Vol] 7.73 10*3/uL Normal 3.70-11.00 [facility] Comment on above: Order Comment: Speci men Type: BLOOD SPECIMENOrdering Facility: [facility] Address: [address] [place] [address] Performed By: #### 5 8410-2 ####[facility]ENTER[facility] [id number] [place] [address] [place] HBV surface Ag Ser Qlon 06-0 HBV surface Ag Ql (S) Negative Normal Negative [facility] Comment on above: Order Comment: Speci men Type: BLOOD SPECIMENOrdering Facility: [facility] Address: [address] [place] [address] Performed By: #### 5 195-3, 57662-1, 78054-0 ####[facility] LABCLIA [id number] [address] [place] HCV Ab Ser Qlon 03-25-2023 HCV Ab Ql (S) Negative Normal Negative [facility] Comment on above: Order Comment: Speci men Type: BLOOD SPECIMENOrdering Facility: [facility] Address: [address] [place] [address] Result Comment: The result suggests no evidence of active infection with Hepatitis C virus. Should recent infection be suspected, repeat testing may be considered 4-6 weeks after this draw. Performed By: #### 1 6128-1 ####[facility] LABIA [id number] [place] [address] [place] HIV 1+2 Ab IA Qlon 3 HIV 1 and 2 Ab IA.rapid Nom Normal [facility] Comment on above: Order Comment: Speci men Type: BLOOD SPECIMENOrdering Facility: [facility] Address: [address] [place] [address] Result Comment: Test not indicated. Performed By: #### 5 195-3, 77377-1, 31722-3 ####[facility] LABIA [id number] [place] [address] [place] HIV 1+2 Ab+HIV1 p24 Ag IA Ql Non-Reactive Normal Nonreactive [facility] Comment on above: Order Comment: Speci men Type: BLOOD SPECIMENOrdering Facility: [facility] Address: [address] [place] [address] Performed By: #### 5 195-3, 30064-9, 60262-7 ####[facility] [id number] [place] [address] [place] HIVINT Normal [facility] Comment on above: Order Comment: Speci men Type: BLOOD SPECIMENOrdering Facility: [facility] Address: [address] [place] [address] Result Comment: No e vidence of HIV-1 or HIV-2 infection. Should recent infection be suspected, repeat testing may be considered 2-3 weeks after this draw. [place] Rev. Code 3701.243(E): This information has been [...] or diagnoses. Performed By: #### 5 195-3, 82445-1, 90640-7 ####[facility] LABCLIA [id number] [facility] [id number] [place] [address] OF [facility] [id number] PLUSon 03-25-2023 Cell-free DNA./Cell-free DNA.total Dosage of chromosome-specific cfDNA (cfDNA) [Molar fraction] 6% Normal [facility] Comment on above: Order Comment: Speci men Type: BLOOD SPECIMENOrdering Facility: [facility] Address: [address] [place] [address] Performed By: #### M AT21 ####[employer] LABCLIA [id number] [place] [address] Chr 13+18+21+X+Y aneuploidy Dosage of chromosome-specific cfDNA Ql (cfDNA) Negative Normal [facility] Comment on above: Order Comment: Speci men Type: BLOOD SPECIMENOrdering Facility: [facility] Address: [address] [place] [address] Performed By: #### M AT21 ####[facility] LABCLIA [id number] [place] [address] Chr 21 trisomy Dosage of chromosome-specific cfDNA Ql (cfDNA) Negative Normal [facility] Comment on above: Order Comment: Speci men Type: BLOOD SPECIMENOrdering Facility: [facility] Address: [address] [place] [address] Performed By: #### M AT21 ####[facility] LABCLIA [id number] [place] [address] Chr X and Y aneuploidy risk Sequencing Ql (cfDNA) [Interp] Not detected Normal [facility] Comment on above: Order Comment: Speci men Type: BLOOD SPECIMENOrdering Facility: [facility] Address: [address] [address] Result Comment: Not Detected Not Detected Performed By: #### M AT21 ####[facility] LABCLIA [id number] [place] [address] Citation Ata (Reference lab test) Comment Normal [facility] Comment on above: Order Comment: Speci men Type: BLOOD SPECIMENOrdering Facility: [facility] Address: [address] [place] [address] Result Comment: 1. P delores GAN, et al. Ayde Med. 2012;14(3):296-305. 2. Patricia HONG, et al. Prenat Diag. 2013;33(6):591-597. 3. Ha Nuñez, et al. Clin Chem. 2015 Jan;61(4):608-616. 4. Ramin GAN, et al. Ayde Med. 2011;13(11):913-920. 5. ACOG/SM[facility] Practice Bulletin No. 226, Jul 2020. Performed By: #### M AT21 ####[facility] LABCLIA [id number] [place] [id number] Gestational age Estimated from conception date Ervin Normal [facility] Comment on above: Order Comment: Speci men Type: BLOOD SPECIMENOrdering Facility: [facility] Address: [address] [place] [address] Performed By: #### M AT21 ####[facility] LABCLIA [id number] [place] [address] GESTATIONALAGE AGE > OR = 9W Yes Normal [facility] Comment on above: Order Comment: Speci men Type: BLOOD SPECIMENOrdering Facility: [facility] Address: [address] [place] [address] Performed By: #### M AT21 ####[facility] LABCLIA [id number] [place] [address] Laboratory comment Ata (Report) Comment Normal [facility] Comment on above: Order Comment: Speci men Type: BLOOD SPECIMENOrdering Facility: [facility] Address: [address] [place] [address] Result Comment: The MaterniT(R) 21 PLUS laboratory-developed test (LDT) analyzes circulating cell-free DNA from a maternal blood sample. This test is used for screening purposes and not diagnostic. Clinical correlation is recommended. Validation data on twin pregnancies is limited and the ability of this test to detect aneuploidy in higher multiple gestations has not yet been validated. Performed By: #### M AT21 ####TVDeckIA [id number] [place] [id number] us marketing director name Nom (Provider) Comment Normal [facility] Comment on above: Order Comment: Speci men Type: BLOOD SPECIMENOrdering Facility: [facility] Address: [address] [place] [address] Result Comment: This specimen showed an expected representation of chromosome 21, 18 and 13 material. Clinical correlation is suggested. Comment Vikram Lopez MD, PhD, Director, [employer] Performed By: #### M AT21 ####[employer] LABCLIA [id number] [place] [address] LIMITATIONS OF THE TEST Comment Normal [facility] Comment on above: Order Comment: Speci men Type: BLOOD SPECIMENOrdering Facility: [facility] Address: [address] [place] [address] Result Comment: Berhane williamson the results of [...] and Fragmin(R)). Performed By: #### M AT21 ####MAINtag LABNanoString TechnologiesIA [id number] [place] [address] Monosomy X risk Dosage of chromosome-specific cfDNA Ql (Plasma cell-free+WBC DNA) [Interp] Not detected Normal [facility] Comment on above: Order Comment: Speci madhuri Type: BLOOD SPECIMENOrdering Facility: [facility] Address: [address] [address] Performed By: #### M AT21 ####[employer] LABCLIA [id number] [place] [address] NEGATIVE PREDICTIVE VALUE Note Normal [facility] Comment on above: Order Comment: Ambrosio dhaliwal Type: BLOOD SPECIMENOrdering Facility: [facility] Address: [address] [address] Result Comment: The Negative Predictive Value (NPV) for trisomy 21, 18, and 13 is greater than 99%. The NPV for SCA and ESS cannot be calculated as SCA and ESS are only reported when an abnormality is detected. Performed By: #### M AT21 ####[facility] LABIA [id number] [place] [address] NOTE Comment Normal [facility] Comment on above: Order Comment: Speci men Type: BLOOD SPECIMENOrdering Facility: [facility] Address: [address] [id number] Result Comment: See Notes [employer] is a subsidiary of [employer], using the brand [employer]. This test was developed and its performance characteristics determined by [employer]. It has not been cleared or approved by the Food and Drug Administration. This laboratory is certified under the Clinical Laboratory Improvement Amendments (CLIA) as qualified to perform high complexity clinical laboratory testing and accredited by the [employer] [place] (CAP). If there is future clinical need for adding MaterniT GENOME testing, this specimen will be available until term. [facility] samples will not be retained beyond 60 days. [facility] patients will have to send a new sample for re-sequencing ([facility] Test Code: [id number]). Performed By: #### M AT21 ####[facility]-SyntertainmentRP LABIA [id number] [place] [address] PERFORMANCE CHARACTERISTICS Note Normal [facility] Comment on above: Order Comment: Ambrosio men Type: BLOOD SPECIMENOrdering Facility: [facility] Address: [place] [address] Result Comment: ! Sex ! Accuracy: 99.4% [...] Performed By: #### M AT21 ####[facility] LABCLIA [id number] [place] [address] POSITIVE PREDICTIVE VALUE N/A Normal [facility] Comment on above: Order Comment: Speci men Type: BLOOD SPECIMENOrdering Facility: [facility] Address: [address] [address] Performed By: #### M AT21 ####[facility] LABCLIA [id number] [place] [address] Reference Lab Test Method Comment Normal [facility] Comment on above: Order Comment: Speci men Type: BLOOD SPECIMENOrdering Facility: [facility] Address: [address] [place] [address] Result Comment: See Notes Circulating cell-free DNA [...] and 22. Performed By: #### M AT21 ####[employer]ch[employer] HoldingsM[facility] LABCLIA [id number] [place] [address] Sex Dosage of chromosome-specific cfDNA Nom (cfDNA) Comment Normal [facility] Comment on above: Order Comment: Speci men Type: BLOOD SPECIMENOrdering Facility: [facility] Address: [address] [address] Result Comment: Cons istent with Male Performed By: #### M AT21 ####[facility] LABCLIA [id number] [place] [address] Test performance information Ata (Unsp spec) Comment Normal [facility] Comment on above: Order Comment: Speci men Type: BLOOD SPECIMENOrdering Facility: [facility] Address: [address] [place] [address] Result Comment: The performance characteristics of the MaterniT(R) 21 PLUS laboratory-developed test (LDT) have been determined in a clinical validation study with women at increased risk for chromosomal aneuploidy.[1-4] Performed By: #### M AT21 ####[facility] LABCLIA [id number] [place] [address] Trisomy 13 risk Dosage of chromosome-specific cfDNA Ql (cfDNA) [Interp] Negative Normal [facility] Comment on above: Order Comment: Speci men Type: BLOOD SPECIMENOrdering Facility: [facility] Address: [address] [place] [address] Performed By: #### M AT21 ####[facility] LABCLIA [id number] [place] [address] Trisomy 18 risk Dosage of chromosome-specific cfDNA Ql (Plasma cell-free+WBC DNA) [Interp] Negative Normal [facility] Comment on above: Order Comment: Speci madhuri Type: BLOOD SPECIMENOrdering Facility: [facility] Address: [address] [place] [address] Performed By: #### M AT21 ####[facility]-Synter[employer]RP LABCLIA [id number] [place] [id number] NUCHAL TRANSLUCENCY WHIon [facility] RUBELLA IGG ABon 03-25-2023 RUBELLA IGG AB, QUAL Positive Normal Positive [facility] Comment on above: Order Comment: Speci men Type: BLOOD SPECIMENOrdering Facility: [facility] Address: [address] [place] [address] Result Comment: The result suggests recent or past exposure to Rubella virus or history of Rubella vaccination. Positive result may also be seen due to presence of passively-transferred antibodies. Please correlate with patient's history. Performed By: #### R UBIGG ####[facility] LABCLIA [id number] [facility] [id number] [address] [place] Reagin and Treponema pallidu m IgG and IgM [Interp]on 03-25-2023 SYPHILIS INTERPRETATION Cannot exclude recent Treponemal infection if specimen collected within 7-10 days after appearance of suspect lesions or 2-3 weeks after an exposure. Clinical correlation is required. Normal [facility] Comment on above: Order Comment: Sudhiri men Type: BLOOD SPECIMENOrdering Facility: [facility] Address: [address] [place] [address] Performed By: #### 5 195-3, 64484-7, 67118-8 ####[facility] LABCLIA [id number] [place] [address] [place] T. pallidum IgG+IgM IA Ql (S) Non-Reactive Normal Nonreactive [facility] Comment on above: Order Comment: Speci men Type: BLOOD SPECIMENOrdering Facility: [facility] Address: [address] [place] [address] Performed By: #### 5 195-3, 55606-8, 23878-3 ####[facility] LABCLIA [id number] [place] [address] [place] TSH SerPl-aCncon 03-25-2023 TSH Qn 2.080 m[IU]/L Normal 0.270-4.200 [facility] Comment on above: Order Comment: Ambrosio dhaliwal Type: BLOOD SPECIMENOrdering Facility: [facility] Address: [address] [place] [address] Result Comment: If t he patient is , TSH reference range varies by gestational period: First Trimester (weeks 9-12): 0.180-2.990 mIU/L Second Trimester: 0.110-3.980 mIU/L Third Trimester: 0.480-4.710 mIU/L Ed Gandhi et al. A Practical Approach for the Verifications and Determination of Site- and Trimester-Specific Reference Intervals for Thyroid Function tests in . Thyroid, 2019:29:3:412-420. Misha Williamson, et al. 2017 Guidelines of the [place] [employer] for the Diagnosis and Management of Thyroid Disease during and the . Thyroid, 2017:27:3:315-389. Performed By: #### 3 016-3 ####[facility] LABCLIA [id number] [place] [address] [place] TYPE + SCREEN PRENATALon ABO A Normal [facility] Comment on above: Order Comment: Speci men Type: BLOOD SPECIMEN [facility] Address: [address] [place] [address] Performed By: #### T SPN #### [facility] CLIA [id number] [address] [place] [address] [place] HISTORICAL AB SCR STATUS Negative Normal [facility] Comment on above: Order Comment: Speci men Type: BLOOD SPECIMEN [facility] Address: [address] [place] [address] Performed By: #### T SPN #### [facility] CLIA [id number] [address] [place] [address] [place] Rh Nom (Bld) Positive Normal [facility] Comment on above: Order Comment: Speci men Type: BLOOD SPECIMEN [facility] Address: [address] [place] [address] Performed By: #### T SPN #### [facility] CLIA [id number] [address] [place] [address] [place] TYPE AND SCREEN EXPIRATION 03/28/2023 23:59 Normal [facility] Comment on above: Order Comment: Speci men Type: BLOOD SPECIMEN [facility] Address: [address] [address] Performed By: #### T SPN #### [facility] CLIA [id number] [address] [place] [address] [place] URINE OB DIP B/Oon 3 Glucose Ql (U) Negative Neg mg/dL [facility] Protein.monoclonal (U) [Mass/Vol] Negative Neg mg/dL [facility] CNPNon 03-10-2023 CNPN Telephone (OBGFVC) ERICA TORO ([id number]) 1995 F Date Time Provider Department 03/10/23 [...] tablet by mouth daily at bedtime. - at59-ahzs ps-folate 1 29 mg iron- 1 mg [...] Encounter Status:Closed by KARI KINNEY on 03/10/23 [facility] Cara 03-04-2023 CNPN Telephone (OBGYWM) ERICA TORO ([id number]) 1995 F Date Time Provider Department 03/04/23 DULCE SHANNON During your visit today, we recorded the following information about you: Allergies As of Date: 03/04/2023 (No Known Allergies) Date Reviewed: 02/18/2023 Reviewed by: Félix Knight Cma - Fully Assessed Reason for Visit: Orders [681] Primary Visit Diagnosis: with uncertain viability, single or unspecified fetus [O36.80X0] Order(s):OBSTETRIC ULTRASOUND WHI [[id number]] Order #: [id number]: 1 FUTURE Prescriptions as of 03/04/2023 - Lactobacillus acidophilus (FLORAJEN ACIDOPHILUS) 20 billion cell cap Take 1 capsule by mouth once daily. - doxylamine (UNISOM, DOXYLAMINE,) 25 mg tab Take 1 tablet by mouth daily at bedtime. - lk42-aclg ps-folate 1 29 mg iron- 1 mg [...] Status:Closed by DULCE SHANNON on 03/04/23 Normal [facility] OBSTETRIC ULTRASOUND WHIon 0 03-04-2023 [facility] CNPNon 02-26-2023 CNPN Telephone (OBGYWM) ERICA TORO ([id number]) 1995 F Date Time Provider Department 02/26/23 [...] answer and unable to leave a message. [employer] message sent to patient. Marii Gonsales RN 03/02/2023 10:44 AM Signed Attempted to contact patient again. No answer and unable to leave a message as voicemail box is not set up. Patient has not read [employer] message either. Upcoming appointment notes updated to [...] tablet by mouth daily at bedtime. - gk32-rdvv ps-folate 1 29 mg iron- 1 mg [...] Status:Closed by MARII GONSALES RN on 03/02/23 [facility] Cara 02-23-2023 CNPN Telephone (OBGYWM) CORTEZERICA Joaquin ([id number]) 1995 F Date Time Provider Department 02/23/23 MARITZA RICHARD During your visit today, we recorded the following information about you: Anahy Wood RN 02/23/2023 3:03 PM Addendum ----- Message from Maritza Richard APRN.CNM sent at 02/23/2023 11:45 AM EDT ----- [employer] message sent to patient for BV treatment. [...] PM Signed Patient has not logged into [employer] in over 1 year. Attempted to call [...] tablet by mouth daily at bedtime. - dv36-igue ps-folate 1 29 mg iron- 1 mg [...] by ANAHY WOOD RN on 02/24/23 Normal [facility] BACTERIAL VAGINOSIS AMPLIFIC ATIONon 02-18-2023 Lactobacillus crispatus+gasseri+jense reema + Gardnerella vaginalis + Atopobium vaginae rRNA ODILON+probe Ql (Vag fld) Positive Abnormal Negative for bacterial vaginosis [facility] Comment on above: Order Comment: Speci men Type: SWABOrdering Facility: [facility] Address: [address] [place] [address] Performed By: #### Donny SAUNDERS CVTV ####[facility] LABCLIA [id number] [place] [address] [place] Bacteria Ur Culton 3 Bacteria identified Cx Nom (U) CULTURE, URINE: No growth (<1,000 CFU/ml) Normal [facility] Comment on above: Performed By: #### 6 30-4 ####[facility] LABCLIA [id number] [place] [address] [place] C. trachomatis+N. gonorrhoea e DNA ODILON+probe Ql (Unsp spec)on 02-18-2023 C. trachomatis DNA ODILON+probe Ql (Unsp spec) Negative Normal Negative for Chlamydia trachomatis by amplificaton [facility] Comment on above: Order Comment: Speci men Type: SWABOrdering Facility: [facility] Address: [address] [place] [address] Performed By: #### 3 6902-5 ####[facility] LABCLIA [id number] [place] [address] [place] N. gonorrhoeae DNA ODILON+probe Ql (Unsp spec) Negative Normal Negative for Neisseria gonorrhoeae by amplification [facility] Comment on above: Order Comment: Speci men Type: SWABOrdering Facility: [facility] Address: [address] [place] [address] Performed By: #### 3 6902-5 ####[facility] LABCLIA [id number] [place] [address] [place] FRANCESCO / TRICHOMONAS AMPLIF ICATIONon 02-18-2023 FRANCESCO / TRICHOMONAS AMPLIFICATION FRANCESCO [employer] RNA: Negative for Francesco species FRANCESCO GLABRATA RNA: Negative for Francesco glabrata TRICH VAG AMPLIFICATION RNA: Negative for Trichomonas vaginalis by amplification Normal [facility] Comment on above: Performed By: #### B VAMP, CVTV ####[facility] LABCLIA [id number] OF [facility] HPV W/GENOTYPE THIN PREPon 0 02-18-2023 HPV 16 Ag Ql (Unsp spec) Negative Normal Negative for HPV DNA high risk type 16 by PCR [facility] Comment on above: Order Comment: Speci men Type: FLUID SPECIMENOrdering Facility: [facility] Address: [address] [place] [address] Performed By: #### H PVHRT, [id number] ####[facility] LABCLIA [id number] [address] [place] HPV 18 Ag Ql (Unsp spec) Negative Normal Negative for HPV DNA high risk type 18 by PCR [facility] Comment on above: Order Comment: Speci men Type: FLUID SPECIMENOrdering Facility: [facility] Address: [address] [place] [address] Performed By: #### H PVHRT, [id number] ####[facility] LABCLIA [id number] [address] OF [place] HPV 31+33+35+39+45+51+52+56 +58+59+66+68 DNA ODILON+probe Ql (Cvx) Positive for one or more of the following HPV DNA high risk types:31,33,35,39,45 ,51,52,56,58,59,66,6 8 by PCR Abnormal Negative for HPV DNA high risk types: 31,33,35,39,45,5 1,52,56,58,59,66 ,68 by PCR. [facility] Comment on above: Order Comment: Speci men Type: FLUID SPECIMENOrdering Facility: [facility] Address: [address] [place], [place] [address] Performed By: #### H PVHRT, [id number] ####[facility] LABCLIA [id number] [place] [address] [place] PAP TESTon 02-18-2023 CASE REPORT Normal [facility] Comment on above: Order Comment: Speci men Type: FLUID SPECIMENOrdering Facility: [facility] Address: [address] [place] [address] Result Comment: Gyne cologic Cytology Report Case: [id number] Authorizing Provider: Maritza Richard APRN.CNM Collected: 02/18/2023 03:39 PM Ordering Location: OB/Gynecology Received: 02/18/2023 04:57 PM First Screen: Cathy Cosby, CT, ASCP Pathologist: Jessica Vazquez MD Specimen: Pap Test, ThinPrep, Cervix Performed By: #### H PVHRT, [id number] ####[facility] LABCLIA [id number] [place] [address] [place] CLINICAL HISTORY, CYTOLOGY, CRUSHING 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 OPERATOR (Indicate Weeks) Normal [facility] Comment on above: Order Comment: Speci men Type: FLUID SPECIMENOrdering Facility: [facility] Address: [address] [place] [address] Performed By: #### H PVHRT, [id number] ####[facility] LABCLIA [id number] [place] [address] [place] CYTOLOGY INTERPRETATION PAP Abnormal [facility] Comment on above: Order Comment: Speci men Type: FLUID SPECIMENOrdering Facility: [facility] Address: [address] [place] [address] Result Comment: Epit helial cell abnormality. Atypical squamous cells of undetermined significance (ASC-US) Performed By: #### H PVHRT, [id number] ####[facility] LABCLIA [id number] [address] [place] FINAL DIAGNOSIS A - Cervix Normal [facility] Comment on above: Order Comment: Speci men Type: FLUID SPECIMENOrdering Facility: [facility] Address: [address] [address] Result Comment: Sati sfactory for interpretation Epithelial cell abnormality. Atypical squamous cells of undetermined significance (ASC-US) Predominance of coccobacilli consistent with shift in vaginal natalie Performed By: #### H PVHRT, [id number] ####[facility] LABCLIA [id number] [address] [place] FINAL PERFORMING LAB Normal [facility] Comment on above: Order Comment: Speci men Type: FLUID SPECIMENOrdering Facility: [facility] Address: [address] [address] Result Comment: Tech nical component, multimedia coordinator screening performed at [facility], [address] [facility] [place] [address] CLIA# [id number] Diagnostic interpretation performed at [facility], [address] [facility] [place] [address] CLIA# [id number] Appointment Clerk: Russell Davila M.D. Performed By: #### H PVHRT, [id number] ####[facility] LABCLIA [id number] [place] [address] [place] HPV REFLEX HPV if ASCUS Normal [facility] Comment on above: Order Comment: Speci men Type: FLUID SPECIMENOrdering Facility: [facility] Address: [address] Performed By: #### H PVHRT, [id number] ####[facility] LABCLIA [id number] [place] [address] [place] LMP 12/22/2022[unknown Normal [facility] Comment on above: Order Comment: Speci men Type: FLUID SPECIMENOrdering Facility: [facility] Address: [address] [place] [address] Performed By: #### H PVHRT, [id number] ####[facility] LABCLIA [id number] [address] PAP DISCLAIMER COMMENT The Pap Smear is a screening test for cervical cancer. False negative results occur with all screening tests, emphasizing the need for rescreening at recommended intervals, and clinical correlation. Normal [facility] Comment on above: Order Comment: Speci men Type: FLUID SPECIMENOrdering Facility: [facility] Address: [address] [place] [address] Performed By: #### H PVHRT, [id number] ####[facility] LABCLIA [id number] [address] [place] PAP TANK WAGON DRIVER COMMENT This specimen has been analyzed by the ThinPrep Imaging System, an automated imaging and review system, which assists the laboratory in evaluating cells on ThinPrep Pap tests. Following automated imaging, selected buitrago from every slide are reviewed by a multimedia coordinator. 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1995 Requested By: PEGGY ARANDA Order Number: [id number] Reading MD: Macario Caro Measurements Intervals [place] Rate: 124 P: 67 ME: 128 QRS: -26 QRSD: 102 T: 65 QT: 340 QTc: 489 Interpretive Statements SINUS TACHYCARDIA BORDERLINE LEFT AXIS DEVIATION BORDERLINE PROLONGED QT INTERVAL Electronically Signed On 10-07-2020 8:02:46 EST by Macario [place], [place] Cal [facility] Incoming Cardiology Results From Merge/Kenroy[facility] - 10/07/2020 8:03 AM EST [facility] Test Date: 2020-10-05 Pat Name: Erica Toro Department: ED Room: 06 Gender: F 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1995 Requested By: PEGGY ARANDA Order Number: [id number] Reading MD: Macario Caro Measurements Intervals [place] Rate: 124 P: 67 ME: 128 QRS: -26 QRSD: 102 T: 65 QT: 340 QTc: 489 Interpretive Statements SINUS TACHYCARDIA BORDERLINE LEFT AXIS DEVIATION BORDERLINE PROLONGED QT INTERVAL Electronically Signed On 10-07-2020 8:02:46 EST by Macario [place] Hemoglobin A1Con 10-07-2020 HbA1c (Bld) [Mass fraction] 4.4 % Normal 4.0-6.0 [facility] Comment on above: Result Comment: --Hg bA1C levels may not be accurate in patients who have renal disease, received recent blood transfusions, are anemic, or who have dyshemoglobinemia. Performed By: #### H A1C2, LIPD2 #### [facility] [address] [place] [address] HbA1c (Bld) [Mass fraction] 80 mg/dL Normal [facility] Comment on above: Performed By: #### H A1C2, LIPD2 #### [facility] [address] [place] [address] Hemoglobin A1con 10-07-2020 eAG 80 mg/dL [place] HbA1c (Bld) [Mass fraction] 4.4 % 4 - 6 % [place] Comment on above: --HgbA1C levels may not be accurate in patients who have renal disease, received recent blood transfusions, are anemic, or who have dyshemoglobinemia. Lipid Panelon 10-07-2020 Cholesterol [Mass/Vol] 196 mg/dL Normal < 200 [facility] Comment on above: Performed By: #### H A1C2, LIPD2 #### [facility] StatusPage [facility] [address] [place] [address] Cholesterol in HDL [Mass/Vol] 90 mg/dL High 40-60 [facility] Comment on above: Performed By: #### H A1C2, LIPD2 #### [facility] System [address] [place] [address] Cholesterol.total/Elif sterol in HDL [Mass ratio] 2 Normal [facility] Comment on above: Result Comment: Ref Range: < 3 Low Risk for CHD 3-6 Mod Risk for CHD > 6 High Risk for CHD Performed By: #### H A1C2, LIPD2 #### [facility] [address] [place] [address] Protein [Mass/Vol] 87 mg/dL Normal <100 [facility] Comment on above: Performed By: #### H A1C2, LIPD2 #### [facility] [address] [place] [address] Triglyceride [Mass/Vol] 93 mg/dL Normal <150 [facility] Comment on above: Performed By: #### H A1C2, LIPD2 #### [facility] [address] [place] [address] Lipid panel - fastingon 09-24 Cholesterol [Mass/Vol] 196 mg/dL <200 [place], [place] Cholesterol in HDL [Mass/Vol] 90 mg/dL High 40 - 60 mg/dL [place] Cholesterol in LDL [Mass/Vol] 87 mg/dL <100 [place] Cholesterol.total/Elif sterol in HDL [Mass ratio] 2 {ratio} [place] Comment on above: Ref Range: < 3 Low Risk for CHD 3-6 Mod Risk for CHD > 6 High Risk for CHD Interpretation and review of laboratory results Abnormal [place] Triglyceride [Mass/Vol] 93 mg/dL <150 [place], [place] Otheron 10-07-2020 Test Performed by [facility]Page [facility], [address] [place] [address] [place] SARS-CoV-2 (MICRO DEPT)on SARS-CoV-2 (MICRO DEPT) SARS-CoV-2 --> Status: F Not Detected. Expected Result: Not Detected _ Real-time, RT-PCR performed on the [employer] System by the [facility] Microbiology Service. Negative results do not preclude SARS-CoV-2 infection and should not be used as the sole basis for treatment or other patient management decisions. This assay was developed by [employer] and distributed under an Emergency Use Authorization (EUA) granted by the FDA for the qualitative detection of SARS-CoV-2 nucleic acid. Expected Result: Not Detected _ Real-time, RT-PCR performed on the [employer] System by the [facility] Microbiology Service. Negative results do not preclude SARS-CoV-2 infection and should not be used as the sole basis for treatment or other patient management decisions. This assay was developed by [employer] and distributed under an Emergency Use Authorization (EUA) granted by the FDA for the qualitative detection of SARS-CoV-2 nucleic acid. Normal [facility] Comment on above: Performed By: #### A OEG2 #### [facility] [address] [place] [address] Basic Metabolic Panelon 12 Anion gap [Moles/Vol] 11 Normal [facility] Comment on above: Performed By: #### B MP3, HEMDF, ETOH4, LFT3 #### [facility] [address] [place] [address] CO2 [Moles/Vol] 25 mmol/L Normal 22-30 [facility] Comment on above: Performed By: #### B MP3, HEMDF, ETOH4, LFT3 #### [facility] [address] [place] [address] Creatinine [Mass/Vol] 0.65 mg/dL Normal 0.52-1.25 [facility] Comment on above: Performed By: #### B MP3, HEMDF, ETOH4, LFT3 #### [facility] [address] [place] [address] GFR/1.73 sq M predicted among blacks MDRD (S/P/Bld) [Vol rate/Area] mL/min/{1.73_m2} Normal >60 [facility] Comment on above: Performed By: #### B MP3, HEMDF, ETOH4, LFT3 #### [facility] [address] [place] [address] GFR/1.73 sq M predicted among non-blacks MDRD (S/P/Bld) [Vol rate/Area] mL/min/{1.73_m2} Normal >60 [facility] Comment on above: Result Comment: KDIG O [...] #### B MP3, HEMDF, ETOH4, LFT3 #### [facility] [address] [place] [address] Chloride [Moles/Vol] 108 mmol/L High 98-107 [facility] Comment on above: Performed By: #### B MP3, HEMDF, ETOH4, LFT3 #### [facility] [address] [place] [address] Potassium [Moles/Vol] 3.6 mmol/L Normal 3.5-5.1 [facility] Comment on above: Performed By: #### B MP3, HEMDF, ETOH4, LFT3 #### [facility] [address] [place] [address] Sodium [Moles/Vol] 145 mmol/L Normal 135-145 [facility] Comment on above: Performed By: #### B MP3, HEMDF, ETOH4, LFT3 #### [facility] [address] [place] [address] Calcium [Mass/Vol] 9.2 mg/dL 8.4 - 10.4 mg/dL [facility] Comment on above: Performed By: #### B MP3, HEMDF, ETOH4, LFT3 #### [facility] [address] [place] [address] Glucose [Mass/Vol] 83 mg/dL 70 - 100 mg/dL [facility] Comment on above: Performed By: #### B MP3, HEMDF, ETOH4, LFT3 #### [facility] [address] [place] [address] Urea nitrogen [Mass/Vol] 7 mg/dL 7 - 20 mg/dL [facility] Comment on above: Performed By: #### B MP3, HEMDF, ETOH4, LFT3 #### [facility] [address] [place] [address] Anion gap [Moles/Vol] 11 mmol/L [place], [place] Chloride [Moles/Vol] 108 mmol/L High 98 - 107 mmol/L [place] CO2 [Moles/Vol] 25 mmol/L 22 - 30 mmol/L [place] Creatinine [Mass/Vol] 0.65 mg/dL 0.52 - 1.25 mg/dL [place] EGFR IF NonAfrican [place] >90.0 >60 mL/min [place] Comment on above: KDIGO guidelines pro [...] MDRD (S/P/Bld) [Vol rate/Area] mL/min/{1.73_m2} >60 mL/min [place] Potassium [Moles/Vol] 3.6 mmol/L 3.5 - 5.1 mmol /L [place] Sodium [Moles/Vol] 145 mmol/L 135 - 145 mmol/L [place] COVID-19on 10-05-2020 SARS-CoV-2 Not Detected. Not Detected [place] Comment on above: Not Detected. Expected Result: Not Detected _ Real-time, RT-PCR performed on the [employer] System by the [facility] Microbiology Service. Negative results do not preclude SARS-CoV-2 infection and should not be used as the sole basis for treatment or other patient management decisions. This assay was developed by [employer] and distributed under an Emergency Use Authorization (EUA) granted by the FDA for the qualitative detection of SARS-CoV-2 nucleic acid. [facility], [address] [place] [address] Drugs of Abuseon 10-05-2020 Methadone, Ur Negative Normal [facility] Comment on above: Performed By: #### D SHRUTI, HCGKALEN #### [facility] [address] [place] [address] Phencyclidine (PCP), Ur Negative Normal [facility] Comment on above: Result Comment: The expected [...] Performed By: #### D RGA4, HCGUR #### [facility] [address] [place] [address] Cocaine, Ur Negative Normal [facility] Comment on above: Performed By: #### D RGA4, HCGUR #### [facility] [address] [place] [address] Amphetamines, Ur Negative Normal [facility] Comment on above: Performed By: #### D RGA4, HCGUR #### [facility] [address] [place] [address] Opiates, Ur Negative Normal [facility] Comment on above: Performed By: #### D RGA4, HCGUR #### [facility] [address] [place] [address] Benzodiazepines, Ur Negative Normal [facility] Comment on above: Performed By: #### D RGA4, HCGUR #### [facility] [address] [place] [address] Barbiturates, Ur Negative Normal [facility] Comment on above: Performed By: #### D RGA4, HCGUR #### [facility] [address] [place] [address] Oxycodone/Oxymorphine,U r Negative Normal [facility] Comment on above: Performed By: #### D RGA4, HCGUR #### [facility] [address] [place] [address] Ethanolon 10-05-2020 Ethanol Lvl >0.300 High 0 - 0.01 g/dL [place] Comment on above: NOTE: This result is for medical treatment only. Analysis performed using non-forensic procedures. Interpretation and review of laboratory results Abnormal [place] Test Performed by [facility], [address] , [place], [place] [id number] [place] [address] Ethanol Serum/Plasmaon 10-05 Ethanol-Serum/Plasma > 0.300 High 0.000-0.010 [facility] Comment on above: Result Comment: NOTE : This result is for medical treatment only. Analysis performed using non-forensic procedures. Performed By: #### B MP3, HEMDF, ETOH4, LFT3 #### [facility] [address] [place] [id number] HCG,Urine Qualon 10-05-2020 Beta HCG ( test) Ql (U) Negative Normal Negative [facility] Comment on above: Result Comment: Preg luis daniel is the most common reason for HCG in urine, although choriocarcinoma, hydatidiform mole, and certain nontropho- blastic malignancies also result in detectable urinary HCG levels. Sensitivity = 20mIU/mL. Performed By: #### D RGA4, HCGUR #### [facility] [address] [place] [address] HGC Urine Qual [place] 2019 Beta HCG ( test) Ql (U) Negative Negative [place] Comment on above: is the mos t common reason for HCG in urine, although choriocarcinoma, hydatidiform mole, and certain nontropho- blastic malignancies also result in detectable urinary HCG levels. Sensitivity = 20mIU/mL. Test Performed by [facility], [address] , [place], [place] [address] [place] Hemogram (CBC) w/Auto Diffon 10-05-2020 Absolute Baso # 0.1 10*3/uL 0 - 0.2 10*3/uL [place] Absolute Neut # 2.9 10*3/uL 1.8 - 7 10*3/uL [place] Basophils/100 WBC (Bld) 2.0 % 0 - 2 % [place] Eosinophils (Bld) [#/Vol] 0.2 10*3/uL 0 - 0.5 10*3/uL [place] Eosinophils/100 WBC (Bld) 2.7 % 1 - 6 % [place] Erythrocyte distribution width (RBC) [Ratio] 14.0 % 11.5 - 14.5 % [place] Granulocytes/100 WBC (Bld) 50.4 % 40 - 80 % [place] Hematocrit (Bld) [Volume fraction] 44.0 % 35 - 47 % [place] Hemoglobin (Bld) [Mass/Vol] 14.8 g/dL 11.7 - 16 g/dL [place] Interpretation and review of laboratory results Abnormal [place] Lymphocytes (Bld) [#/Vol] 1.8 10*3/uL 1 - 4.3 10*3/uL [place] Lymphocytes/100 WBC (Bld) 32.0 % 20 - 40 % [place] MCH (RBC) [Entitic mass] 29.9 pg 26 - 34 pg [place] MCHC (RBC) [Mass/Vol] 33.6 % 32 - 36 % [place], [place] MCV (RBC) [Entitic vol] 88.9 fL 79 - 98 fL [place], [place] Monocytes (Bld) [#/Vol] 0.7 10*3/uL 0 - 0.8 10* 3/uL [place] Monocytes/100 WBC (Bld) 12.9 % High 2 - 10 % [place] Platelet mean volume (Bld) [Entitic vol] 9.1 fL 7.4 - 10.4 fL [place] Platelets (Bld) [#/Vol] 195 10*3/uL 140 - 440 10*3/uL [place] RBC (Bld) [#/Vol] 4.95 10*6/uL 3.8 - 5.2 10*6/uL [place] WBC (Bld) [#/Vol] 5.8 10*3/uL 3.6 - 10.7 10*3/uL [place] Test Performed by [facility], [address] , [address] Hemogram w/ Autodiffon 10-05 Abs Baso Cnt 0.1 10*3/uL Normal 0.0-0.2 [facility] Comment on above: Performed By: #### B MP3, HEMDF, ETOH4, LFT3 #### [facility] [address] [place] [address] Abs Neutrophile Cnt 2.9 10*3/uL Normal 1.8-7.0 [facility] Comment on above: Performed By: #### B MP3, HEMDF, ETOH4, LFT3 #### [facility] [address] [place] [address] Basophils/100 WBC (Bld) 2.0 % Normal 0.0-2.0 [facility] Comment on above: Performed By: #### B MP3, HEMDF, ETOH4, LFT3 #### [facility] [address] [place] [address] Eosinophils (Bld) [#/Vol] 0.2 10*3/uL Normal 0.0-0.5 [facility] Comment on above: Performed By: #### B MP3, HEMDF, ETOH4, LFT3 #### [facility] [address] [place] [address] Eosinophils/100 WBC (Bld) 2.7 % Normal 1.0-6.0 [facility] Comment on above: Performed By: #### B MP3, HEMDF, ETOH4, LFT3 #### [facility] [address] [place] [address] Erythrocyte distribution width (RBC) [Ratio] 14.0 % Normal 11.5-14.5 [facility] Comment on above: Performed By: #### B MP3, HEMDF, ETOH4, LFT3 #### [facility] [address] [place] [address] Granulocytes/100 WBC (Bld) 50.4 % Normal 40.0-80.0 [facility] Comment on above: Performed By: #### B MP3, HEMDF, ETOH4, LFT3 #### [facility] [address] [place] [address] Hematocrit (Bld) [Volume fraction] 44.0 % Normal 35.0-47.0 [facility] Comment on above: Performed By: #### B MP3, HEMDF, ETOH4, LFT3 #### [facility] [address] [place] [address] Hemoglobin (Bld) [Mass/Vol] 14.8 g/dL Normal 11.7-16.0 [facility] Comment on above: Performed By: #### B MP3, HEMDF, ETOH4, LFT3 #### [facility] [address] [place] [address] Lymphocytes (Bld) [#/Vol] 1.8 10*3/uL Normal 1.0-4.3 [facility] Comment on above: Performed By: #### B MP3, HEMDF, ETOH4, LFT3 #### [facility] [address] [place] [address] Lymphocytes/100 WBC (Bld) 32.0 % Normal 20.0-40.0 [facility] Comment on above: Performed By: #### B MP3, HEMDF, ETOH4, LFT3 #### [facility] [address] [place] [address] MCH (RBC) [Entitic mass] 29.9 pg Normal 26.0-34.0 [facility] Comment on above: Performed By: #### B MP3, HEMDF, ETOH4, LFT3 #### [facility] [address] [place] [address] MCHC (RBC) [Mass/Vol] 33.6 % Normal 32.0-36.0 [facility] Comment on above: Performed By: #### B MP3, HEMDF, ETOH4, LFT3 #### [facility] [address] [place] [address] MCV (RBC) [Entitic vol] 88.9 fL Normal 79.0-98.0 [facility] Comment on above: Performed By: #### B MP3, HEMDF, ETOH4, LFT3 #### [facility] [address] [place] [address] Monocytes (Bld) [#/Vol] 0.7 10*3/uL Normal 0.0-0.8 [facility] Comment on above: Performed By: #### B MP3, HEMDF, ETOH4, LFT3 #### [facility] [address] [place] [address] Monocytes/100 WBC (Bld) 12.9 % High 2.0-10.0 [facility] Comment on above: Performed By: #### B MP3, HEMDF, ETOH4, LFT3 #### [facility] [address] [place] [address] Platelet mean volume (Bld) [Entitic vol] 9.1 fL Normal 7.4-10.4 [facility] Comment on above: Performed By: #### B MP3, HEMDF, ETOH4, LFT3 #### [facility] [address] [place] [address] Platelets (Bld) [#/Vol] 195 10*3/uL Normal 140-440 [facility] Comment on above: Performed By: #### B MP3, HEMDF, ETOH4, LFT3 #### [facility] [address] [place] [address] RBC (Bld) [#/Vol] 4.95 10*6/uL Normal 3.80-5.20 [facility] Comment on above: Performed By: #### B MP3, HEMDF, ETOH4, LFT3 #### [facility] [address] [place] [address] WBC (Bld) [#/Vol] 5.8 10*3/uL Normal 3.6-10.7 [facility] Comment on above: Performed By: #### B MP3, HEMDF, ETOH4, LFT3 #### [facility] [address] [place] [address] Hepatic Functionon 0 Bilirubin [Mass/Vol] 0.2 mg/dL Normal 0.2-1.3 [facility] Comment on above: Performed By: #### B MP3, HEMDF, ETOH4, LFT3 #### [facility] [address] [place] [address] Bilirubin.direct [Mass/Vol] 0.0 mg/dL Normal 0.0-0.3 [facility] Comment on above: Performed By: #### B MP3, HEMDF, ETOH4, LFT3 #### [facility] [address] [place] [address] Protein [Mass/Vol] 7.7 g/dL Normal 6.3-8.2 [facility] Comment on above: Performed By: #### B MP3, HEMDF, ETOH4, LFT3 #### [facility] [address] [place] [address] Albumin [Mass/Vol] 4.8 g/dL Normal 3.5-5.0 [facility] Comment on above: Performed By: #### B MP3, HEMDF, ETOH4, LFT3 #### [facility] [address] [place] [address] ALP [Catalytic activity/Vol] 63 U/L 38 - 126 U/L [facility] Comment on above: Performed By: #### B MP3, HEMDF, ETOH4, LFT3 #### [facility] [address] [place] [address] ALT [Catalytic activity/Vol] 143 U/L High 0 - 34 U/L [facility] Comment on above: Result Comment: The ALT test is performed by an updated assay method. Please note that the reference intervals have been changed and are now sex specific. Performed By: #### B MP3, HEMDF, ETOH4, LFT3 #### [facility] [address] [place] [address] The ALT test is perf ormed by an updated assay method. Please note that the reference intervals have been changed and are now sex specific. AST [Catalytic activity/Vol] 160 U/L High 15 - 46 U/L [facility] Comment on above: Performed By: #### B MP3, HEMDF, ETOH4, LFT3 #### [facility] [address] [place] [address] Hepatic Function Panelon Albumin [Mass/Vol] 4.8 g/dL 3.5 - 5 g/dL [place], [place] Bilirubin Ql (U) 0.2 mg/dL 0.2 - 1.3 mg/dL [place] Bilirubin.direct [Mass/Vol] 0.0 mg/dL 0 - 0.3 mg/dL [place] Protein [Mass/Vol] 7.7 g/dL 6.3 - 8.2 g/dL [place] Otheron 10-05-2020 Interpretation and review of laboratory results Abnormal [place] Test Performed by [facility], [address] , [address] Urine Drug Screenon 10-05-20 20 Amphetamines, urine Negative [facility], [place] Barbiturates, Ur Negative [facility], [place] Benzodiazepine Ur Qual Negative Me [facility], [place] Cocaine Metabolites, Ur Negative M [facility], [place] Methadone, Urine Negative [facility], [place] Opiates, Urine Negative [facility], [place] Oxycodone Screen, Ur Negative [facility], [place] PCP, Urine Negative [facility], [place] Comment on above: The expected value f [...] confirmation under separate order. Test [facility], [address] , [address] ED Pat Eduon 12-18-2019 ED Pat [place] [id number] Emergency Department Discharge Instructions ERICA TORO, Please [...] Servicios de Emergencia Name ERICA TORO MRN [facility]-[id number] Acct# PLEASE READ THE FOLLOWING REGARDING YOUR [...] doses are changed, or new medications (including [id number] products) are added. If you have any [...] UNTIL YOU TALK TO YOUR DOCTOR None [place] [address] Emergency Department Discharge Instructions Name: ERICA TORO Current Date:12/18/2019 03:07:10 :1995 Primary Physician:Physician, PCP Unknown We would like to thank you for choosing [facility] for your emergency medical needs. We examined [...] health of those around you. Call the [place] [employer] at 5-778-GNOH-USA or the [place] [employer] at 9-418-LXZ-5701 for more information. High blood pressure: Your [...] deadly infections. Discuss this with your child's fan mail clerk, or Public Health Department. Your family practice doctor can determine if you need pneumonia or flu vaccine. The [facility] Department can be reached at . Substance Abuse Program: Concerns with addiction to alcohol, benzodiazepines (Ativan or Xanax) and Opiates (Heroin, Percocet, OxyContin, Methadone or Fentanyl)? [facility] offers an inpatient Substance Abuse Program to help treat the symptoms associated with medical detoxification of addictive substances. The new program offers care for non- adults (18 and older) looking to break the chain to addictive chemicals. The Substance Abuse Program is a voluntary inpatient admission and it starts with a pre-screening phone call to a social service assistant. During the call, goals and objectives for recovery and how the patient will transition to outpatient care will be established. Please call [phone] to get help today. Domestic Violence: If [...] suicide hotline, anytime day or night, at 6-019-599-EKYV. Pharmacy Information: Below is a list of 24 hour pharmacies that we are aware of. We suggest that you call the specific pharmacy for their hours before traveling to a location. Hours may vary on holidays. [facility] [place] [address] [place], [place] [phone] [address] [place], [place] [address]9 [phone] [address] [place], [place] [address] [phone] [address] [place], [place] [phone] [address] [place], [place] [phone] [address] [place], [place] [phone] [place] [address] [phone] Take all medications as directed. If you need prescription assistance, contact the following agencies: ?? Partnership for Prescription Assistance at or www.pparx.org ?? [place] at or www.High[employer] Mobilebestrx.org ?? www.QBuyRSekoia is a site with many valuable coupons [...] Patient Signature Date Time Provider Signature Normal [facility] Acetaminophen (Tylenol) Leve amy 12-17-2019 Acetaminophen [Mass/Vol] <10 Normal 10.0-30.0 [facility] Comment on above: Performed By: #### 6 9405-9, 05233-5e9, 47064-7, 66885-4, 43828-9, 90210-8, 2110-02, #### [facility], [address] [place], [place]. Alcohol (Ethanol) Levelon Ethanol [Mass/Vol] 0.20 gm/dL High 0.00-0.00 [facility] Comment on above: Performed By: #### 6 9405-9, 72097-2f2, 73645-9, 09441-0, 30137-4, 06198-8, 2110-02, #### [facility], [address] [place], [place]. CBC with Differentialon 11-26 Basophils (Bld) [#/Vol] 0.00 thou/mcL Normal 0.00-0.20 [facility] Comment on above: Performed By: #### 5 7021-8 #### [facility], [address], [place]. Basophils/100 WBC (Bld) 0.7 % Normal 0.0-2.0 [facility] Comment on above: Performed By: #### 5 7021-8 #### [facility], [address], [place]. Eosinophils (Bld) [#/Vol] 0.20 thou/mcL Normal 0.00-0.70 [facility] Comment on above: Performed By: #### 5 7021-8 #### [facility], [facility] [place] Eosinophils/100 WBC (Bld) 3.8 % Normal 0.0-7.0 [facility] Comment on above: Performed By: #### 5 7021-8 #### [facility], [facility] [place]. Erythrocyte distribution width (RBC) [Entitic vol] 14.8 % Normal 11.0-14.8 [facility] Comment on above: Performed By: #### 5 7021-8 #### [facility], [address], [place]. Hematocrit (Bld) [Volume fraction] 44.2 % Normal 35.0-45.0 [facility] Comment on above: Performed By: #### 5 7021-8 #### [facility], [address], [place]. Hemoglobin (Bld) [Mass/Vol] 14.7 g/dL Normal 12.0-16.0 [facility] Comment on above: Performed By: #### 5 7021-8 #### [facility], [address], [place]. Lymphocytes (Bld) [#/Vol] 1.80 thou/mcL Normal 1.00-4.80 [facility] Comment on above: Performed By: #### 5 7021-8 #### [facility], [facility] [address] [place]. Lymphocytes/100 WBC (Bld) 43.7 % Normal 22.0-44.0 [facility] Comment on above: Performed By: #### 70-8 #### [facility], [facility] [address] [place]. MCH (RBC) [Entitic mass] 29.8 Picograms Normal 27.0-34.0 [facility] Comment on above: Performed By: #### 70-8 #### [facility], [facility] [address] [place]. MCHC (RBC) [Mass/Vol] 33.3 g/dL Normal 32.0-36.0 [facility] Comment on above: Performed By: #### 70-8 #### [facility], [address] [place] [address]. MCV (RBC) [Entitic vol] 89.5 fL Normal 80.0-97.0 [facility] Comment on above: Performed By: #### 70-8 #### [facility], [facility] [address] [place]. Monocytes (Bld) [#/Vol] 0.30 thou/mcL Normal 0.00-0.90 [facility] Comment on above: Performed By: #### 70-8 #### [facility], [facility] [place]. Monocytes/100 WBC (Bld) 7.4 % Normal 0.0-12.0 [facility] Comment on above: Performed By: #### 70-8 #### [facility], [address] [place], [place]. Neutrophils (Bld) [#/Vol] 1.80 thou/mcL Normal 1.80-7.70 [facility] Comment on above: Performed By: #### 5 7021-8 #### [facility], [address] [place], [place]. Neutrophils/100 WBC (Bld) 44.4 % Normal 40.0-70.0 [facility] Comment on above: Performed By: #### 7021-8 #### [facility], [address] [place], [place]. Platelet mean volume (Bld) [Entitic vol] 8.8 fL Normal 6.2-12.1 [facility] Comment on above: Performed By: #### 5 7021-8 #### [facility], [address] [place], [place]. Platelets (Bld) [#/Vol] 167 thou/mcL Normal 142-424 [facility] Comment on above: Performed By: #### 5 7021-8 #### [facility], [address] [place], [place]. RBC (Bld) [#/Vol] 4.94 million/mcL Normal 3.80-5.10 [facility] Comment on above: Performed By: #### 5 7021-8 #### [facility], [address] [place], [place]. WBC (Bld) [#/Vol] 4.1 thou/mcL Low 4.6-10.2 [facility] Comment on above: Performed By: #### 5 7021-8 #### [facility], [address] [place], [place]. Comprehensive Metabolic Pane amy 12-17-2019 Albumin [Mass/Vol] 4.0 g/dL Normal 3.5-4.8 [facility] Comment on above: Performed By: #### 6 9405-9, 83516-0q0, 46574-2, 97147-0, 12628-8, 02662-4, 0-5, 05380-7 #### [facility], [address] [place], [place]. ALP [Catalytic activity/Vol] 62 Units/L Normal 32-91 [facility] Comment on above: Performed By: #### 6 9405-9, 29903-7u9, 80881-8, 23020-0, 89736-8, 19436-9, 0-5, 64427-1 #### [facility], [address], [place]. ALT [Catalytic activity/Vol] 22 Units/L Normal 14-63 [facility] Comment on above: Performed By: #### 6 9405-9, 07503-1v3, 92052-4, 26391-2, 86124-7, 36595-0, 0-5, 27738-7 #### [facility], [address] [place], [place]. Anion gap [Moles/Vol] 10.0 mmol/L Normal 6.0-18.0 [facility] Comment on above: Performed By: #### 6 9405-9, 56948-9q8, 24742-3, 59032-0, 04635-3, 00431-8, 0-5, 80891-4 #### [facility], [address] [place], [place]. AST [Catalytic activity/Vol] 31 Units/L Normal 15-41 [facility] Comment on above: Performed By: #### 6 9405-9, 01893-8k6, 75008-4, 87100-0, 59613-3, 02061-6, 0-5, 70165-9 #### [facility], [address] [place]. Bilirubin [Mass/Vol] 0.3 mg/dL Normal 0.3-1.2 [facility] Comment on above: Performed By: #### 6 9405-9, 19988-6g1, 84405-3, 36504-5, 97391-5, 95734-8, 0-5, 11500-1 #### [facility], [address]. Calcium [Mass/Vol] 8.6 mg/dL Low 8.9-10.3 [facility] Comment on above: Performed By: #### 6 9405-9, 22257-3f2, 10088-6, 02873-5, 99130-7, 32623-5, 0-5, 37746-4 #### [facility], [address]. Chloride [Moles/Vol] 112 mmol/L High 98-107 [facility] Comment on above: Performed By: #### 6 9405-9, 62883-9b1, 73046-0, 81812-1, 76958-6, 54913-4, 0-5, 10428-2 #### [facility], [address] [facility] [place] CO2 [Moles/Vol] 23 mmol/L Normal 22-32 [facility] Comment on above: Performed By: #### 6 9405-9, 33284-0c2, 13580-4, 06455-0, 14410-5, 40674-6, 2109-5, 10724-0 #### [facility], [address] [place], [place]. Creatinine [Mass/Vol] 0.61 mg/dL Low 0.66-1.30 [facility] Comment on above: Performed By: #### 6 9405-9, 53938-0l5, 94296-0, 83963-4, 08737-0, 80073-8, 0-5, 34218-6 #### [facility], [address], [place]. Glucose [Mass/Vol] 88 mg/dL Normal 70-99 [facility] Comment on above: Result Comment: U pdated ADA Reference Range A normal fasting glucose concentration is less than 100 mg/dL. An impaired fasting glucose concentration is 100-125 mg/dL. A provisional diagnosis of diabetes mellitus can be made when a fasting glucose concentration is greater than 125 mg/dL. Performed By: #### 6 9405-9, 96850-9u4, 83104-6, 85933-2, 92704-4, 80375-8, 0-5, 26124-2 #### [facility], [address], [place]. Potassium [Moles/Vol] 3.5 mmol/L Low 3.6-5.[address] [facility] Comment on above: Performed By: #### 6 9405-9, 15714-7p2, 25102-3, 94496-1, 07964-4, 29894-6, 0-, #### [facility], [address], [place]. Protein [Mass/Vol] 6.8 g/dL Normal 6.1-7.9 [facility] Comment on above: Performed By: #### 6 9405-9, 13900-3g9, 78124-1, 54275-1, 63424-5, 53241-1, 0-5, 17057-5 #### [facility], [address] [facility] [place], [place]. Sodium [Moles/Vol] 145 mmol/L Normal 136-145 [facility] Comment on above: Performed By: #### 6 9405-9, 39355-9o0, 88030-8, 03144-9, 74973-6, 05637-5, 0-5, 87162-4 #### [facility], [address] [facility] [place]. Urea nitrogen (BldV) [Mass/Vol] 4 mg/dL Low 8-20 [facility] Comment on above: Performed By: #### 6 9405-9, 98420-8h6, 74742-2, 77436-3, 85241-5, 64725-6, 2110-5, 07277-2 #### [facility], [address] [facility] [place]. Drug Abuse Screen 8 Urineon 12-17-2019 Amphetamines Ql (U) Negative Normal [facility] Comment on above: Performed By: #### 5 7021-8 #### [facility], [address] [facility] [place]. Barbiturates Screen Ql (U) Negative Normal [facility] Comment on above: Performed By: #### 5 7021-8 #### [facility], [address] [place] [address]. Benzodiazepines cutoff Screen (U) [Mass/Vol] Positive Abnormal [facility] Comment on above: Result Comment: Conf irmatory testing available upon request. Performed By: #### 5 7021-8 #### [facility], [address] [place], [place] [address]. Cocaine Ql (U) Negative Normal [facility] Comment on above: Performed By: #### 5 7021-8 #### [facility], [address] [place], [place] [address]. Interpretation and review of laboratory results Negative Normal [facility] Comment on above: Performed By: #### 5 7021-8 #### [facility], [address] [facility] [place] Methadone Screen Ql (U) Negative Normal NEGA TIVE-NEGATIV E [facility] Comment on above: Performed By: #### 5 7021-8 #### [facility], [address] [facility] [place] Opiates Screen Ql (U) Negative Normal [facility] Comment on above: Result Comment: INTE RPRETATION [...] ONLY. Performed By: #### 5 7021-8 #### [facility], [address] [place] [address]. Tetrahydrocannabinol Screen Ql (U) Positive Abnormal [facility] Comment on above: Result Comment: Conf irmatory testing available upon request. Performed By: #### 5 7021-8 #### [facility], [address] [place] [address]. GFRaaon 12-17-2019 GFR/1.73 sq M predicted among blacks MDRD (S/P/Bld) [Vol rate/Area] mL/min/{1.73_m2} Normal [facility] Comment on above: Result Comment: The MDRD equation has not been validated for those over 70 years, women, patients with serious co-morbid conditions, or with extremes of body size, muscle mass of nutritional status. Performed By: #### 6 9405-9, 14271-8d2, 56759-1, 20158-1, 66326-9, 02481-8, 2110-5, 78512-2 #### [facility], [address] [place], [place]. GFRbbon 12-17-2019 GFR/1.73 sq M predicted among non-blacks MDRD (S/P/Bld) [Vol rate/Area] mL/min/{1.73_m2} Normal [facility] Comment on above: Performed By: #### 6 9405-9, 59361-8z3, 98319-4, 51419-1, 21218-6, 76598-9, 2110-02, #### [facility], [address], [place]. HCG Qualitativeon 12-17-2019 HCG ( test) Ql <1 Normal [facility] Comment on above: Result Comment: Nega tive 0 to LESS THAN 5 mIU/ML Positive GREATER THAN OR EQUAL TO 5 mIU/ML Performed By: #### 6 9405-9, 07063-7a4, 95366-4, 82216-5, 09137-5, 50459-8, 2110-02, #### [facility], [address], [place]. Magnesium Levelon 12-17-2019 Magnesium [Mass/Vol] 1.9 mg/dL Normal 1.8-2.5 [facility] Comment on above: Performed By: #### 6 9405-9, 95173-1g0, 04451-9, 17097-0, 76575-5, 65817-9, 2110-02, #### [facility], [address], [place]. Pre-Arrival Formon 0 Pre-Arrival Form Pre-Arrival [...] 100%, 100 HR Medications Given: Comments: Normal [facility] Salicylate Levelon 0 Salicylates [Mass/Vol] mg/dL Normal 2.8-30.0 [facility] Comment on above: Performed By: #### 6 9405-9, 53230-1x5, 71729-8, 94868-5, 54085-7, 62379-7, 2110-5, 39445-9 #### [facility], [facility] [address] [place]. Acetaminophenon 10-05-2019 Acetaminophen [Mass/Vol] <2 Low 10-30 [facility] Comment on above: Performed By: #### A CTMN #### [facility] [address] [place] [address] Alcohol, Serumon 10-05-2019 Alcohol, Serum 180 mg/dL Normal [facility] Comment on above: Performed By: #### A LC #### [place] [address] Comprehensive Panelon 2018 ALP [Catalytic activity/Vol] 96 U/L Normal 45-117 [facility] Comment on above: Performed By: #### P 14 #### [address] [address] Bilirubin [Mass/Vol] 0.3 mg/dL Normal 0.2-1.0 [facility] Comment on above: Performed By: #### P 14 #### [facility] [address] [place], [place] [address] Protein [Mass/Vol] 8.0 g/dL Normal 6.4-8.2 [facility] Comment on above: Performed By: #### P 14 #### [facility] [address] [place], [place] [address] AST [Catalytic activity/Vol] 29 U/L Normal 15-37 [facility] Comment on above: Performed By: #### P 14 #### [facility] [address] [place], [place] [address] ALT [Catalytic activity/Vol] 32 U/L Normal 12-78 [facility] Comment on above: Performed By: #### P 14 #### [facility] [address] [place], [place] [address] Creatinine [Mass/Vol] 0.57 mg/dL Normal 0.51-0.95 [facility] Comment on above: Performed By: #### P 14 #### [facility] [address] [place], [place] [address] Albumin [Mass/Vol] 3.9 g/dL Normal 3.4-5.0 [facility] Comment on above: Performed By: #### P 14 #### [facility] [address] [place], [place] [address] Anion gap [Moles/Vol] 12 mmol/L Normal 8-16 [facility] Comment on above: Performed By: #### P 14 #### [facility] [address] [place], [place] [address] Calcium [Mass/Vol] 8.6 mg/dL Normal 8.5-10.1 [facility] Comment on above: Performed By: #### P 14 #### [facility] [address] [place], [place] [address] CO2 [Moles/Vol] 24 mmol/L Normal 21-32 [facility] Comment on above: Performed By: #### P 14 #### [facility] [address] [place], [place] [address] Glucose [Mass/Vol] 87 mg/dL Normal 70-99 [facility] Comment on above: Performed By: #### P 14 #### [facility] [address] [place], [place] [address] Urea nitrogen [Mass/Vol] 2 mg/dL Low 7-18 [facility] Comment on above: Performed By: #### P 14 #### [facility] [address] [place], [place] [address] Chloride [Moles/Vol] 111 mmol/L High 98-107 [facility] Comment on above: Performed By: #### P 14 #### [facility] [address] [place], [place] [address] Potassium [Moles/Vol] 3.2 mmol/L Low 3.5-5.1 [facility] Comment on above: Performed By: #### P 14 #### [place] [id number] Sodium [Moles/Vol] 144 mmol/L Normal 136-145 [facility] Comment on above: Performed By: #### P 14 #### [place] [id number] ED NOTEon 10-05-2019 ED NOTE HNO ID: [id number] Author: Trevin EvangelistaRn) EMILY Irwin Service: Emergency Medicine Author Type: Registered Nurse Type: ED Notes Filed: 10/05/2019 1:34 PM Note Text: Called lab at this time regarding outstanding lab orders And states they will run salicylate and acetaminophen at this time [facility] ED NOTE HNO ID: [id number] Author: Trevin EvangelistaRn) EMILY Irwin Service: Emergency Medicine Author Type: Registered Nurse Type: ED Notes Filed: 10/05/2019 1:20 PM Note Text: This RN assuming care of pt. While primary RN is at lunch break. Pt. Resting in bed at this time with bedside caregiver. No acute distress noted at this time. Safety precautions being maintained. [facility] ED NOTE HNO ID: [id number] Author: Collette EvangelistaRn) EMILY Lion Service: Emergency Medicine Author Type: Registered Nurse Type: ED Notes Filed: 10/05/2019 9:42 AM Note Text: Pt placed on color television console monitor and continuous pulse ox; alarms set and on. [facility] ED NOTE HNO ID: [id number] Author: Carola EvangelistaRnCarter Platt RN Service: ? Author Type: Registered Nurse Type: ED Notes Filed: 10/05/2019 8:38 AM Note Text: Bed: [facility] Expected date: 10/05/19 Expected time: 8:09 AM Means of arrival: [facility] Comments: [id number] - si [facility] ED PROV NOTEon 10-05-2019 ED PROV NOTE HNO ID: [id number] Author: Todd Bullock DO Service: Emergency Medicine [...] Bullock, DO Todd Bullock, 10/08/19 0726 Normal [facility] Hemogram/Diffon 10-05-2019 Abs Immature Grans 0.01 thou/cmm Normal 0.00-0.05 [facility] Comment on above: Performed By: #### C BCD1 #### [place] [address] Abs Neut (ANC) 1.99 thou/cmm Normal 1.56-6.13 [facility] Comment on above: Performed By: #### C BCD1 #### [place] [address] Abs. Baso 0.01 thou/cmm Normal 0.01-0.08 [facility] Comment on above: Performed By: #### C BCD1 #### [place] [address] Abs. Dooly 0.33 thou/cmm Normal 0.27-0.70 [facility] Comment on above: Performed By: #### C BCD1 #### [place] [address] Basophils/100 WBC (Bld) 0.2 % Normal [facility] Comment on above: Performed By: #### C BCD1 #### [facility] [address] [place], [place] [address] Eosinophils (Bld) [#/Vol] 0.15 thou/cmm Normal 0.00-0.31 [facility] Comment on above: Performed By: #### C BCD1 #### [facility] [address] [place], [place] [address] Eosinophils/100 WBC (Bld) 3.6 % Normal [facility] Comment on above: Performed By: #### C BCD1 #### [facility] [address] [place], [place] [address] Erythrocyte distribution width (RBC) [Ratio] 14.3 % Normal 11.7-14.4 [facility] Comment on above: Performed By: #### C BCD1 #### [facility] [address] [place] [address] Hematocrit (Bld) [Volume fraction] 47.0 % High 34.1-44.9 [facility] Comment on above: Performed By: #### C BCD1 #### [facility] [address] [place], [place] [address] Hemoglobin (Bld) [Mass/Vol] 15.4 g/dL Normal 11.2-15.7 [facility] Comment on above: Performed By: #### C BCD1 #### [facility] [address] [place], [place] [address] Immature Grans 0.20 % Normal [facility] Comment on above: Performed By: #### C BCD1 #### [facility] [address] [place], [place] [address] Lymphocytes (Bld) [#/Vol] 1.71 thou/cmm Normal 1.18-3.74 [facility] Comment on above: Performed By: #### C BCD1 #### [facility] [address] [place], [place] [address] Lymphocytes/100 WBC (Bld) 40.7 % Normal [facility] Comment on above: Performed By: #### C BCD1 #### [facility] [address] [place], [place] [address] MCH (RBC) [Entitic mass] 27.9 pg Normal 25.6-32.2 [facility] Comment on above: Performed By: #### C BCD1 #### [facility] [address] [place], [place] [address] MCHC (RBC) [Mass/Vol] 32.8 % Normal 31.6-34.8 [facility] Comment on above: Performed By: #### C BCD1 #### [facility] [address] [place], [place] [address] MCV (RBC) [Entitic vol] 85.3 fL Normal 79.4-94.8 [facility] Comment on above: Performed By: #### C BCD1 #### [facility] [address] [place] [address] Monocytes/100 WBC (Bld) 7.9 % Normal [facility] Comment on above: Performed By: #### C BCD1 #### [facility] [address] [place] [address] Platelet mean volume (Bld) [Entitic vol] 10.6 fL Normal 9.4-12.3 [facility] Comment on above: Performed By: #### C BCD1 #### [facility] [address] [place], [place] [address] Platelets (Bld) [#/Vol] 160 thou/cmm Low 182-369 [facility] Comment on above: Performed By: #### C BCD1 #### [facility] [address] [place], [place] [address] RBC (Bld) [#/Vol] 5.51 mil/cmm High 3.93-5.22 [facility] Comment on above: Performed By: #### C BCD1 #### [facility] [address] [place], [place] [address] RDW SD 43.8 fl Normal 36.4-46.3 [facility] Comment on above: Performed By: #### C GEORGETTED1 #### [facility] [address] [place], [place] [address] Seg Neutrophil 47.4 % Normal [facility] Comment on above: Performed By: #### C BCD1 #### [facility] [address] [place], [place] [address] WBC (Bld) [#/Vol] 4.20 thou/cmm Normal 3.98-10.04 [facility] Comment on above: Performed By: #### C BCD1 #### [facility] [address] [place], [place] [address] MDRD GFRon 10-05-2019 GFR/1.73 sq M predicted among non-blacks MDRD (S/P/Bld) [Vol rate/Area] mL/min/{1.73_m2} Normal >60mL/min/1.73m2 [facility] Comment on above: Result Comment: If t he patient is , multiply the result by 1.210. Performed By: #### G FR #### [address] [address] PLAN OF CAREon 10-05-2019 PLAN OF CARE HNO ID: [id number] Author: Merlin Lynn (Retail Wireless Sales Consultant) Service: Pharmacy Author Type: Technology Applications Teacher Type: Plan of Care Filed: 10/05/2019 9:06 AM Note Text: MEDICATION HISTORY Patient Name:Joanie Toro : 1995 Source of history:Patient: Reliability of source: Appears reliable, clearly identified: Medication name and Medication dose and Pharmacy records: [facility] [phone] (primary) Medication Nonadherence Identified: No barriers noted The above information represents the best possible medication history: Yes Additional comments: [id number] Medication List Adjustments: Medication Regimen Changes: na Medications Added: na Medications Removed: na Short-Term Medications: na Further Clarification Required: na Patient is a 30 day readmission: no Patient Interested in Bedside Delivery: no Time Spent Reviewing Patient's Medications: 45 minutes Allergies: ALLERGIES No Known Allergies Preferred Pharmacy: [facility] [phone] (primary) Current PIN [employer]ER Medications: Prior to Admission medications as of [...] mouth once daily. 10/05/2019 Yes Merlin Lynn (Retail Wireless Sales Consultant) pager [phone] phone [phone] October 05, 2019 9:04 AM Normal [facility] Salicylateon 10-05-2019 Salicylate 1.9 mg/dL Low 2.8-20.0 [facility] Comment on above: Performed By: #### S AL #### [place] [address] Urinalysis Routineon 019 Bacteria LM.HPF (Urine sed) [#/Area] NONE Normal None [facility] Comment on above: Performed By: #### U RIN2 #### [place] [address] Ep Cells Urine 2.9 /hpf Normal 0.0-5.0 [facility] Comment on above: Performed By: #### U RIN2 #### [place] [address] Hyaline Cast 0.0 /lpf Normal 0.0-1.0 [facility] Comment on above: Performed By: #### U RIN2 #### [place] [address] RBC LM.HPF (Urine sed) [#/Area] 0.9 /[HPF] Normal 0.0-5.0 [facility] Comment on above: Performed By: #### U RIN2 #### [place] [address] WBC LM.HPF (Urine sed) [#/Area] 5.3 /[HPF] High 0.0-5.0 [facility] Comment on above: Performed By: #### U RIN2 #### [place] [address] Appearance (U) CLOUDY Normal [facility] Comment on above: Performed By: #### U RIN2 #### [facility] [address] [place] [address] Bilirubin (U) [Mass/Vol] Negative Normal Negative [facility] Comment on above: Performed By: #### U RIN2 #### [facility] [address] [place] [address] Color (U) YELLOW Normal [facility] Comment on above: Performed By: #### U RIN2 #### [facility] [address] [place] [address] Glucose Ql (U) Negative Normal Negative [facility] Comment on above: Performed By: #### U RIN2 #### [facility] [address] [place] [address] Hemoglobin,Urine Negative Normal Negative [facility] Comment on above: Performed By: #### U RIN2 #### [facility] [address] [place] [address] Ketone Urine Negative Normal Negative [facility] Comment on above: Performed By: #### U RIN2 #### [facility] [address] [place] [address] Leukocytes Esterase SMALL Abnormal Negative [facility] Comment on above: Performed By: #### U RIN2 #### [facility] [address] [place] [address] Nitrites Urine Negative Normal Negative [facility] Comment on above: Performed By: #### U RIN2 #### [place] [address] pH (U) 6.0 [pH] Normal 5.0-8.0 [facility] Comment on above: Performed By: #### U RIN2 #### [facility] [address] [place] [address] Protein (U) [Mass/Vol] Negative Normal Negative [facility] Comment on above: Performed By: #### U RIN2 #### [facility] [address] [place] [address] Specific Monette, Ur 1.005 Normal 1.005-1.030 [facility] Comment on above: Performed By: #### U RIN2 #### [facility] [address] [place] [address] Urobilinogen,Ur 0.2 EU/dL Normal 0.2-1.0 [facility] Comment on above: Performed By: #### U RIN2 #### [facility] [address] [place] [address] Urine Drug Screenon 10-05-20 19 Urine Opiate Non-detected Normal Non-Detected [facility] Comment on above: Performed By: #### U DRG2 #### [place] [address] Urine THC see below Normal Non-Detected [facility] Comment on above: Result Comment: Dete cted [...] only. Performed By: #### U DRG2 #### [place] [address] Urine Amphetamine Non-detected Normal Non-Detected [facility] Comment on above: Performed By: #### U DRG2 #### [place] [address] Urine Barbiturates Non-detected Normal Non-Detected [facility] Comment on above: Performed By: #### U DRG2 #### [place] [address] Urine Benzodiazepine Non-detected Normal Non-Detected [facility] Comment on above: Performed By: #### U DRG2 #### [place] [address] Urine Cocaine Metab Non-detected Normal Non-Detected [facility] Comment on above: Performed By: #### U DRG2 #### [address], [place] [address] Urine PCP Non-detected Normal Non-Detected [facility] Comment on above: Performed By: #### U DRG2 #### [facility] [address] [place] [address] Urine HCG, Qual.on 9 Beta HCG ( test) Ql (U) Negative Normal Negative [facility] Comment on above: Performed By: #### H CGUR #### [facility] [address] [place] [address] Comment See Below Normal [facility] Comment on above: Result Comment: If s pecific gravity is <1.005 then results may be falsely negative. Serum HCG is recommended. Performed By: #### H CGUR #### [facility] [address] [place] [address] Specific Monette, Ur 1.005 Normal 1.005-1.030 [facility] Comment on above: Performed By: #### H CGUR #### [place] [address] PROGRESSon 08-19-2019 PROGRESS HNO ID: [id number] Author: Maddi Beckwith Service: Obstetrics Author Type: [...] follow up. 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: Negative for abnormal vaginal bleeding, endorses leakage [...] TIME: 12:02 PM PAGER/CONTACT #: [phone] Normal [facility] Basic Metabolic Panelon 11-2 Anion gap 3 molar conc 11 mmol/L Normal 7-13 [facility] Calcium mass conc 9.3 mg/dL Normal 8.6-10.2 [facility] Chloride molar conc 103 mmol/L Normal 98-107 [facility] CO2 molar conc 25 mmol/L Normal 22-29 [facility] Creatinine mass conc 0.61 mg/dL Normal 0.50-0.90 [facility] GFR/1.73 sq M predicted among blacks MDRD vol rate/area (S/P/Bld) mL/min/{1.73_m2} Normal >60 [facility] Comment on above: Result Comment: >60 mL/min/1.73m2 EGFR, calc. for ages 18 and older using theMDRD formula (not corrected for weight), is valid for stablerenal function. GFR/1.73 sq M.predicted MDRD vol rate/area mL/min/{1.73_m2} Normal >60 [facility] Comment on above: Result Comment: >60 mL/min/1.73m2 EGFR, calc. for ages 18 and older using theMDRD formula (not corrected for weight), is valid for stablerenal function. Glucose mass conc 84 mg/dL Normal 74-109 [facility] Potassium molar conc 4.8 mmol/L Normal 3.5-5.1 [facility] Sodium molar conc 139 mmol/L Normal 132-144 [facility] Urea nitrogen mass conc 14 mg/dL Normal 6-20 [facility] TSH w/out Reflexon 8 Thyrotropin Qn 1.090 uIU/mL Normal 0.270-4.20 [facility] VITAMIN Don 09-22-2018 VITAMIN D 22.7 ng/mL Low 30.0-100.0 [facility] Comment on above: Result Comment: (20- 30 ng/mL) InsufficiencyThis assay accurately quantifies the sum of vitamin D3, 25-Hydroxy andvitamin D2, 25-Hyroxy. TSH w/out Reflexon 8 Thyrotropin Qn 0.514 uIU/mL Normal 0.270-4.20 [facility] VITAMIN Don 09-05-2018 VITAMIN D 24.4 ng/mL Low 30.0-100.0 [facility] Comment on above: Result Comment: (20- 30 ng/mL) InsufficiencyThis assay accurately quantifies the sum of vitamin D3, 25-Hydroxy andvitamin D2, 25-Hyroxy. Vital Signs Date Time Vital Sign Value Performing Clinician Facility 01-18-2024 08:22-0400 Body temperature 98.6 [degF] Lakeisha Fortune APRN.WORLD GEOGRAPHY TEACHER Work Phone: [facility] 01-18-2024 08:22-0400 Body weight 70 kg Lakeisha Fortune APRN.CNP Work Phone: [facility] 01-18-2024 08:22-0400 Diastolic blood pressure 86 mm[Hg] Lakeisha Fortune APRN.CNP Work Phone: [facility] 01-18-2024 08:22-0400 Heart rate 97 /min Lakeisha Fortune APRN.CNP Work Phone: [facility] 01-18-2024 08:22-0400 Respiratory rate 16 /min Lakeisha Fortune MS SQL SERVER DEVELOPER.WORLD GEOGRAPHY TEACHER Work Phone: [facility] 01-18-2024 08:22-0400 SaO2% (BldA) [Mass fraction] 96 % Lakeisha Fortune MS SQL SERVER DEVELOPER.WORLD GEOGRAPHY TEACHER Work Phone: [facility] 01-18-2024 08:22-0400 Systolic blood pressure 125 mm[Hg] Lakeisha Fortune MS SQL SERVER DEVELOPER.WORLD GEOGRAPHY TEACHER Work Phone: [facility] 10-07-2023 16:23-0500 Body temperature 97.9 [degF] [facility] 10-07-2023 16:23-0500 Diastolic blood pressure 70 mm[Hg] [facility] 10-07-2023 16:23-0500 Heart rate 73 /min [facility] 10-07-2023 16:23-0500 Respiratory rate 16 /min [facility] 10-07-2023 16:23-0500 SaO2% (BldA) [Mass fraction] 95 % [facility] 10-07-2023 16:23-0500 Systolic blood pressure 110 mm[Hg] [facility] 10-06-2023 10:51-0500 Body height 170.18 cm [facility] 10-06-2023 10:51-0500 Body mass index (BMI) [Ratio] 28.5 kg/m2 [facility] 10-06-2023 10:51-0500 Body weight 82.55 kg [facility] 10-05-2023 13:58-0500 Body weight 82.56 kg Krystian Valencia MD Work Phone: [facility] 10-05-2023 13:58-0500 Diastolic blood pressure 74 mm[Hg] Krystian Valencia MD Work Phone: [facility] 10-05-2023 13:58-0500 Systolic blood pressure 118 mm[Hg] Krystian Valencia MD Work Phone: [facility] 09-27-2023 11:17-0500 Body weight 82.56 kg Gracy Ross MD Work Phone: [facility] 09-27-2023 11:17-0500 Diastolic blood pressure 60 mm[Hg] Gracy Ross MD Work Phone: [facility] 09-27-2023 11:17-0500 Systolic blood pressure 100 mm[Hg] Gracy Ross MD Work Phone: [facility] 09-20-2023 14:19-0500 Body weight 83.01 kg Maritza Richard MS SQL SERVER DEVELOPER.CNM Work Phone: [facility] 09-20-2023 14:19-0500 Diastolic blood pressure 62 mm[Hg] Maritza Richard MS SQL SERVER DEVELOPER.CNM Work Phone: [facility] 09-20-2023 14:19-0500 Systolic blood pressure 112 mm[Hg] Maritza Richard MS SQL SERVER DEVELOPER.CNM Work Phone: [facility] 09-20-2023 13:35-0500 Body weight 83.01 kg Ob Ultrasound Work Phone: [facility] 09-13-2023 11:23-0500 Body weight 82.28 kg Dulce Williamston MS SQL SERVER DEVELOPER.WORLD GEOGRAPHY TEACHER Work Phone: [facility] 09-13-2023 11:23-0500 Diastolic blood pressure 80 mm[Hg] Dulce Williamston MS SQL SERVER DEVELOPER.WORLD GEOGRAPHY TEACHER Work Phone: [facility] 09-13-2023 11:23-0500 Systolic blood pressure 120 mm[Hg] Dulce Shiva MS SQL SERVER DEVELOPER.WORLD GEOGRAPHY TEACHER Work Phone: [facility] 09-01-2023 14:14-0500 Body weight 85.46 kg Lon Haury MS SQL SERVER DEVELOPER.WORLD GEOGRAPHY TEACHER Work Phone: [facility] 09-01-2023 14:14-0500 Diastolic blood pressure 72 mm[Hg] Lon Haury MS SQL SERVER DEVELOPER.WORLD GEOGRAPHY TEACHER Work Phone: [facility] 09-01-2023 14:14-0500 Systolic blood pressure 114 mm[Hg] Lon Haury MS SQL SERVER DEVELOPER.WORLD GEOGRAPHY TEACHER Work Phone: [facility] 08-18-2023 10:27-0400 Body weight 81.65 kg Cortney Plotts MS SQL SERVER DEVELOPER.CNM Work Phone: [facility] 08-18-2023 10:27-0400 Diastolic blood pressure 72 mm[Hg] Cortney Plotts MS SQL SERVER DEVELOPER.CNM Work Phone: [facility] 08-18-2023 10:27-0400 Systolic blood pressure 120 mm[Hg] Cortney Plotts MS SQL SERVER DEVELOPER.CNM Work Phone: [facility] 07-12-2023 13:18-0400 Body weight 80.83 kg Gracy Ross MD Work Phone: [facility] 07-12-2023 13:18-0400 Diastolic blood pressure 80 mm[Hg] Gracy Ross MD Work Phone: [facility] 07-12-2023 13:18-0400 Systolic blood pressure 120 mm[Hg] Gracy Ross MD Work Phone: [facility] 06-23-2023 14:35-0400 Body weight 81.19 kg Cortney Plotts MS SQL SERVER DEVELOPER.CNM Work Phone: [facility] 06-23-2023 14:35-0400 Diastolic blood pressure 70 mm[Hg] Cortney Plotts MS SQL SERVER DEVELOPER.CNM Work Phone: [facility] 06-23-2023 14:35-0400 Systolic blood pressure 110 mm[Hg] Cortney Plotts MS SQL SERVER DEVELOPER.CNM Work Phone: [facility] 05-26-2023 13:54-0400 Body weight 77.11 kg Gracy Ross MD Work Phone: [facility] 05-26-2023 13:54-0400 Diastolic blood pressure 64 mm[Hg] Gracy Ross MD Work Phone: [facility] 05-26-2023 13:54-0400 Systolic blood pressure 108 mm[Hg] Gracy Ross MD Work Phone: [facility] 04-21-2023 15:30-0400 Body weight 73.94 kg Maritza Richard MS SQL SERVER DEVELOPER.CNM Work Phone: [facility] 04-21-2023 15:30-0400 Diastolic blood pressure 60 mm[Hg] Maritza Richard MS SQL SERVER DEVELOPER.CNM Work Phone: [facility] 04-21-2023 15:30-0400 Systolic blood pressure 106 mm[Hg] Maritza Richard MS SQL SERVER DEVELOPER.CNM Work Phone: [facility] 03-25-2023 14:43-0400 Body weight 74.39 kg Cortney Plotmikie MS SQL SERVER DEVELOPER.CNM Work Phone: [facility] 03-25-2023 14:43-0400 Diastolic blood pressure 64 mm[Hg] Cortney Plotts MS SQL SERVER DEVELOPER.CNM Work Phone: [facility] 03-25-2023 14:43-0400 Systolic blood pressure 100 mm[Hg] Cortney Cash MS SQL SERVER DEVELOPER.CNM Work Phone: [facility] 03-25-2023 14:22-0400 Body height 170.2 cm Ob Ultrasound Work Phone: [facility] 03-25-2023 14:22-0400 Body weight 74.39 kg Ob Ultrasound Work Phone: [facility] 03-06-2022 11:09-0400 Body weight 68.04 kg Vilma Gray APRN.WORLD GEOGRAPHY TEACHER Work Phone: [facility] 03-06-2022 11:09-0400 Diastolic blood pressure 68 mm[Hg] Vilma Gray APRN.WORLD GEOGRAPHY TEACHER Work Phone: [facility] 03-06-2022 11:09-0400 Systolic blood pressure 136 mm[Hg] Vilma Gray APRN.WORLD GEOGRAPHY TEACHER Work Phone: [facility] 10-10-2020 11:32-0500 Body Temperature 97.81 [degF] [facility] [place] [place] 10-10-2020 06:06-0500 BP Diastolic 58 mm[Hg] [facility] , [place] 10-10-2020 06:06-0500 BP Systolic 114 mm[Hg] [facility] [place] 10-10-2020 06:06-0500 Pulse (Heart Rate) 61 /min [facility], [place] 10-10-2020 06:06-0500 Pulse Oximetry 97 % [facility] , [place] 10-10-2020 06:06-0500 Respiratory Rate 18 /min [facility] [place] 10-07-2020 16:48-0500 BMI (Body Mass Index) 21.93 kg/m2 [facility], [place] 10-07-2020 16:48-0500 Body weight 63.5 kg [facility] , [place] 10-07-2020 16:48-0500 Height 170.2 cm [place], [place] Encounters Encounter Date Encounter Type Care Provider Facility Start: 05-09-2025 End: 05-09-2025 ambulatory Alber Dawson RN NURSE CALENDER WIND UP TENDER Comment on above: Patient Update Start: 02-15-2024 Telephone encounter Carrie alvares MD Work Phone: [facility] Start: 01-18-2024 End: 01-18-2024 ambulatory SELF Facility:[facility] Start: 01-18-2024 End: 01-18-2024 Patient encounter procedure Lakeisha Fortune APRN.WORLD GEOGRAPHY TEACHER Work Phone: [facility] Comment on above: Strep throat (Primar y Dx); Nausea and vomiting, unspecified vomiting type Start: 01-03-2024 Telephone encounter Gracy Ross MD Work Phone: OB/Gynecology Comment on above: Appointment; Patient Update Start: 12-28-2023 End: 12-28-2023 ambulatory LOS AGUILAR Facility:[facility] Start: 12-06-2023 Telephone encounter Gracy Ross MD Work Phone: OB/Gynecology Comment on above: Abnormal Pap Start: 11-24-2023 End: 11-24-2023 ambulatory GRACY ROSS Facility:[facility] Start: 10-06-2023 End: 10-07-2023 Evaluation and management of inpatient Cortney Cash Facility:[facility] Start: 10-06-2023 End: 10-07-2023 Evaluation and management of inpatient [facility] Work Phone: Start: 10-05-2023 End: 10-05-2023 ambulatory KRYSTIAN VALENCIA Facility:[facility] Start: 10-05-2023 End: 10-05-2023 Patient encounter procedure Krystian Valencia MD Work Phone: OB/Gynecology Comment on above: Supervision of high risk in third trimester (Primary Dx); 39 weeks gestation of Start: 09-27-2023 End: 09-27-2023 ambulatory GRACY ROSS Facility:[facility] Start: 09-27-2023 End: 09-27-2023 Patient encounter procedure Gracy Ross MD Work Phone: OB/Gynecology Comment on above: Supervision of high risk in third trimester (Primary Dx); Anemia complicating , third trimester; 38 weeks gestation of Start: 09-24-2023 [facility] Comment on above: Population Health Na vigation Outreach (Peds/OB) Start: 09-20-2023 End: 09-20-2023 ambulatory MARITZA RICHARD Facility:[facility] Start: 09-20-2023 End: 09-20-2023 Patient encounter procedure Guest Services Director [facility] Work Phone: OB/Gynecology Comment on above: [...] Start: 09-13-2023 End: 09-13-2023 ambulatory LEONARDO UPTON Facility:[facility] Start: 09-13-2023 End: 09-13-2023 Patient encounter procedure Dulce Shannon MS SQL SERVER DEVELOPER.WORLD GEOGRAPHY TEACHER Work Phone: OB/Gynecology Comment on above: 36 weeks gestation o f (Primary Dx); Supervision of high risk in third trimester; Vaginal discharge Start: 09-02-2023 Telephone encounter Lon lima APRN.WORLD GEOGRAPHY TEACHER Work Phone: OB/Gynecology Comment on above: Results Start: 09-01-2023 End: 09-02-2023 ambulatory LON ARANDA Facility:[facility] Start: 09-01-2023 End: 09-01-2023 Patient encounter procedure Lon Aranda MS SQL SERVER DEVELOPER.WORLD GEOGRAPHY TEACHER Work Phone: OB/Gynecology Comment on above: Supervision of high risk in third trimester (Primary Dx); 34 weeks gestation of ; History of thyroid disease; Migraine with aura and without status migrainosus, not intractable; Anemia complicating , third trimester; Donley Hick's contraction Start: 09-01-2023 Telephone encounter Lon lima APRN.WORLD GEOGRAPHY TEACHER Work Phone: OB/Gynecology Comment on above: Results Start: 08-18-2023 End: 08-18-2023 ambulatory CORTNEY CASH Facility:[facility] Start: 08-18-2023 End: 08-18-2023 Patient encounter procedure Cortney Cash MS SQL SERVER DEVELOPER.CNM Work Phone: OB/Gynecology Comment on above: 32 weeks gestation o f (Primary Dx); Encounter for supervision of other normal in third trimester; Anemia complicating , third trimester Start: 07-22-2023 Telephone encounter Cortney salazar MS SQL SERVER DEVELOPER.CNM Work Phone: OB/Gynecology Start: 07-21-2023 End: 07-22-2023 ambulatory CORTNEY CASH Facility:[facility] Start: 07-12-2023 End: 07-12-2023 ambulatory LEONARDO UPTON Facility:[facility] Start: 07-12-2023 Telephone encounter Leonardo bonner MD Work Phone: OB/Gynecology Comment on above: OB - spotting Start: 07-12-2023 End: 07-12-2023 Patient encounter procedure Gracy Ross MD Work Phone: OB/Gynecology Comment on above: Spotting in pregnanc y (Primary Dx); Bloody show and cramping in early ; 27 weeks gestation of Start: 06-29-2023 End: 06-29-2023 ambulatory DULCEAMAYA DE LEÓNF Facility:[facility] Start: 06-29-2023 End: 06-29-2023 Patient encounter procedure Guest Services Director [facility] Work Phone: OB/Gynecology Comment on above: Encounter for follow -up ultrasound of anatomy (Primary Dx); 25 weeks gestation of Start: 06-23-2023 End: 06-23-2023 ambulatory [facility] Facility:[facility] Start: 06-23-2023 End: 06-23-2023 Patient encounter procedure Cortney Cash MS SQL SERVER DEVELOPER.CNM Work Phone: OB/Gynecology Comment on above: 24 weeks gestation o f (Primary Dx); Encounter for supervision of other normal in second trimester Start: 06-14-2023 Telephone encounter Dulce landeros MS SQL SERVER DEVELOPER.WORLD GEOGRAPHY TEACHER Work Phone: OB/Gynecology Comment on above: Orders Start: 06-02-2023 Telephone encounter Cortney salazar MS SQL SERVER DEVELOPER.CNM Work Phone: OB/Gynecology Comment on above: Breast Pump Start: 05-26-2023 End: 05-27-2023 ambulatory GRACY ROSS Facility:[facility] Start: 05-26-2023 End: 05-26-2023 Patient encounter procedure Gracy Ross MD Work Phone: OB/Gynecology Comment on above: Encounter for superv ision of other normal in second trimester (Primary Dx); 20 weeks gestation of Encounter for anatomic survey (Primary Dx); 20 weeks gestation of Start: 04-21-2023 End: 04-21-2023 ambulatory CORTNEY CASH Facility:[facility] Start: 04-21-2023 End: 04-21-2023 Patient encounter procedure Maritza Richard MS SQL SERVER DEVELOPER.CNM Work Phone: OB/Gynecology Comment on above: 15 weeks gestation o f (Primary Dx) Start: 04-05-2023 End: 04-06-2023 ambulatory LEONARDO UPTON Facility:[facility] Start: 03-25-2023 End: 03-26-2023 [facility] Start: 03-25-2023 End: 03-26-2023 ambulatory [facility] Facility:[facility] Start: 03-25-2023 End: 03-25-2023 Patient encounter procedure Cortney Cash APRN.CNM Work Phone: OB/Gynecology Comment on above: 11 weeks gestation o f (Primary Dx) Encounter for (NT) n uchal translucency scan (Primary Dx); 11 weeks gestation of Start: 03-04-2023 End: 03-05-2023 [facility] Facility:[facility] Start: 03-04-2023 End: 03-04-2023 Patient encounter procedure Guest Services Director [facility] Work Phone: OB/Gynecology Comment on above: Encounter to determi ne viability of , single or unspecified fetus (Primary Dx); with uncertain viability, single or unspecified fetus Start: 02-26-2023 Telephone encounter Maritza sandoval APRN.CNM Work Phone: OB/Gynecology Comment on above: Abnormal Pap (/) Start: 02-18-2023 End: 02-19-2023 [facility] Facility:[facility] Start: 02-15-2023 End: 02-15-2023 Nursing evaluation of patient and report Nurse Pnob [facility] Work Phone: OB/Gynecology Comment on above: Current wi th history of spontaneous during prior (Primary Dx); History of bipolar disorder; History of alcohol abuse; History of thyroid disorder; Patient request for diagnostic testing Start: 02-15-2023 End: 02-15-2023 Patient requested procedure Nurse Karlee [facility] Work Phone: OB/Gynecology Start: 03-06-2022 End: 03-06-2022 Patient encounter procedure Vilma Gray APRN.WORLD GEOGRAPHY TEACHER Work Phone: OB/Gynecology Comment on above: Irregular menses (Pr imary Dx); Encounter for BCP ( control pills) initial prescription; General counseling and advice for contraceptive management Start: 10-06-2020 [facility] Procedures Date Procedure Procedure Detail Performing Clinician Start: 01-18-2024 STREP A MOLECULAR (POC) Lakeisha Fortune MS SQL SERVER DEVELOPER.WORLD GEOGRAPHY TEACHER Work Phone: Start: 10-05-2023 URINE OB DIP B/O Krystian Valencia MD Work Phone: Start: 09-27-2023 URINE OB DIP B/O Gracy Ross MD Work Phone: Start: 09-20-2023 URINE OB DIP B/O Ruma Richard MS SQL SERVER DEVELOPER.CNM Work Phone: Start: 09-20-2023 Us preg uterus after 1st trimest 10/25 gestation Lon Aranda MS SQL SERVER DEVELOPER.WORLD GEOGRAPHY TEACHER Work Phone: Start: 09-13-2023 URINE OB DIP B/O Leonardo bethea MD Work Phone: Start: 09-01-2023 URINE OB DIP B/O Lon Aranda MS SQL SERVER DEVELOPER.WORLD GEOGRAPHY TEACHER Work Phone: Start: 08-18-2023 URINE OB DIP B/O Sean Cash MS SQL SERVER DEVELOPER.CNM Work Phone: Start: 07-12-2023 BACTERIAL VAGINOSIS ODILONT Gracy Ross MD Work Phone: Start: 07-12-2023 Iadna trichomonas va ginalis amplified probe tech Gracy Ross MD Work Phone: Start: 07-12-2023 Urnls dip stick/tabl et rgnt auto w/o microscopy Leonardo Upton MD Work Phone: Start: 06-29-2023 Us preg uterus after 1st trimest 10/25 gestation Dulce Shannon MS SQL SERVER DEVELOPER.WORLD GEOGRAPHY TEACHER Work Phone: Start: 06-23-2023 URINE OB DIP B/O Sean Cash MS SQL SERVER DEVELOPER.CNM Work Phone: Start: 05-26-2023 Us preg uterus after 1st trimest 10/25 gestation Maritzamichel Richard MS SQL SERVER DEVELOPER.CNM Work Phone: Start: 05-26-2023 URINE OB DIP B/O Gracy Ross MD Work Phone: Start: 04-21-2023 URINE OB DIP B/O Sean Cash MS SQL SERVER DEVELOPER.CNM Work Phone: Start: 03-25-2023 Antibody screen GRACY ROSS Comment on above: Order Comment: Speci men Type: BLOOD SPECIMEN Ordering Facility: [facility] Address: [address] [place] [address] Performed By: #### T SPN #### CC MAIN BLOOD BANK [facility] [id number] OF [facility] Start: 03-25-2023 URINE OB DIP B/O Sean Cash MS SQL SERVER DEVELOPER.CNM Work Phone: Start: 03-25-2023 Us nuchal dias slucency 1st gestation Maritza Jose Manuel MS SQL SERVER DEVELOPER.CNM Work Phone: Start: 03-04-2023 Us preg uterus after 1st trimest 10/25 gestation Maritza Jose Manuel MS SQL SERVER DEVELOPER.CNM Work Phone: Start: 03-06-2022 Urine test visual color cmprsn meths Vilma Gray MS SQL SERVER DEVELOPER.WORLD GEOGRAPHY TEACHER Work Phone: Start: 10-07-2020 Hemoglobin glycosylated a1c [...] Adult depression scr eening assessment Vilma Gray APRN.WORLD GEOGRAPHY TEACHER Work Phone: Plan of Treatment Date Care Activity Detail Author Start: 07-21-2033 Urine microalbumin profile DTaP,Tdap,Td Vaccine (4 - Td or Tdap) [facility] Start: 07-11-2029 Urine microalbumin profile [facility] Start: 11-24-2026 Screening for malign ant neoplasm of cervix Pap Testing [facility] Start: 02-18-2026 PAP TESTING PAP TESTING [facility] Start: 02-18-2026 Screening for malign ant neoplasm of cervix Pap Testing [facility] Start: 06-25-2025 Influenza vaccination Influenza Vacc ine (#1) [facility] Start: 11-24-2024 Screening for malign ant neoplasm of cervix Cervical Cancer Screening [facility] Start: 06-25-2024 Covid-19 Vaccine ( season) Covid-19 Vaccine ( season) [facility] Start: 06-25-2024 Influenza vaccination Influenz a Vaccine (Season Ended) [facility] Start: 10-25-2023 Behavioral Health Screening Behavioral Health Screening [facility] Start: 10-25-2023 Depression Assessment Depression Ass essment [facility] Start: 10-07-2023 Patient discharge [facility] Start: 10-06-2023 Administration of medication [facility] Start: 10-06-2023 Application of ice collar, cap or bag [facility] Start: 10-06-2023 Catheterization of vein [facility] Start: 10-06-2023 Introduction of urin kasey catheter [facility] [facility] Start: 10-06-2023 Measuring intake and output [facility] Start: 10-06-2023 Notification of physician [facility] Start: 10-06-2023 Procedure discontinued [facility] Start: 10-06-2023 Provision of activit y privileges [facility] Start: 10-06-2023 Vital signs measurements [facility] Start: 10-06-2023 [facility] Start: 10-06-2023 [facility] Start: 10-06-2023 Obstetric monitoring [facility] Start: 10-06-2023 Vital signs measurements [facility] Start: 10-06-2023 [facility] Start: 10-06-2023 Consultation [facility] Start: 09-01-2023 End: 12-01-2023 Protein/Creatinine [Mass Ratio] in Urine [facility] Work Phone: Comment on above: Expected: 09/01/2023 , Expires: 12/01/2023 Start: 09-01-2023 End: 12-01-2023 Thyrotropin [Units/volume] in Serum or Plasma [facility] Work Phone: Comment on above: Expected: 09/01/2023 , Expires: 12/01/2023 Start: 09-01-2023 End: 12-01-2023 Thyroxine (T4) free [Mass/volume] in Serum or Plasma [facility] Work Phone: Comment on above: Expected: 09/01/2023 , Expires: 12/01/2023 Start: 06-25-2023 Covid-19 Vaccine () Covid-19 Vaccine () [facility] Start: 06-25-2023 Influenza vaccination [facility] Start: 06-23-2023 End: 08-23-2023 CBC W Auto Differential panel - Blood CBC + DIFF Lab Routine 24 weeks gestation of Encounter for supervision of other normal in second trimester Expected: 06/23/2023, Expires: 08/23/2023 [facility] Work Phone: Comment on above: Expected: 06/23/2023 , Expires: 08/23/2023 Start: 06-23-2023 End: 08-23-2023 GEST GLUC SCREEN, 1-HR, 50 GM, NON-FASTING GEST GLUC SCREEN, 1-HR, 50 GM, NON-FASTING Lab Routine 24 weeks gestation of Encounter for supervision of other normal in second trimester Expected: 06/23/2023, Expires: 08/23/2023 [facility] Work Phone: Comment on above: Expected: 06/23/2023 , Expires: 08/23/2023 Start: 06-23-2023 End: 08-23-2023 SYPHILIS TOTAL W/REFLEX SYPHILIS TOTAL W/REFLEX Lab Routine 24 weeks gestation of Encounter for supervision of other normal in second trimester Expected: 06/23/2023, Expires: 08/23/2023 [facility] Work Phone: Comment on above: Expected: 06/23/2023 , Expires: 08/23/2023 Start: 06-14-2023 End: 06-14-2024 OBSTETRIC ULTRASOUND WHI OBSTETRIC ULTRASOUND WHI Anc Imaging Routine Encounter for follow-up ultrasound of anatomy Expected: 06/14/2023, Expires: 06/14/2024 [facility] Work Phone: Comment on above: Expected: 06/14/2023 , Expires: 06/14/2024 Start: 05-26-2023 End: 07-26-2023 ALPHA FETOPRO MATERNAL [facility] Work Phone: Comment on above: Expected: 05/26/2023 , Expires: 07/26/2023 Start: 04-21-2023 End: 04-21-2024 OBSTETRIC ULTRASOUND WHI OBSTETRIC ULTRASOUND WHI Anc Imaging Routine 15 weeks gestation of Expected: 04/21/2023, Expires: 04/21/2024 [facility] Work Phone: Comment on above: Expected: 04/21/2023 , Expires: 04/21/2024 Start: 03-25-2023 End: 05-25-2023 Chromosome 21 trisomy [Presence] in Blood or Tissue by Cytogenetics [facility] Work Phone: Comment on above: Expected: 03/25/2023 , Expires: 05/25/2023 Start: 10-25-2022 DEPRESSION ASSESSMENT DEPRESSION ASS ESSMENT [facility] Start: 06-25-2022 Influenza vaccination INFLUENZ A (Season Ended) [facility] Start: 03-06-2022 End: 05-06-2022 Choriogonadotropin.beta subunit [Units/volume] in Serum or Plasma [facility] Work Phone: Comment on above: Expected: 03/06/2022 , Expires: 05/06/2022 Start: 12-15-2021 PAP TESTING PAP TESTING [facility] Start: 10-05-2020 Adult depression screening assessment DEPRESSION SCREENING [facility] Start: 06-25-2020 Influenza vaccination Flu vaccine (# 1) [place] Start: 2014 Hepatitis B Vaccine (1 of 3 - 19+ 3-dose series) Hepatitis B Vaccine (1 of 3 - 19+ 3-dose series) [facility] Start: 2014 ONE PNEUMOVAX PRIOR TO AGE 65 ONE PNEUMOVAX PRIOR TO AGE 65 [facility] Start: 2013 Anxiety Screening Anxiety Screening [facility] Start: 2013 Depression Screening Depression Scre ening [facility] Start: 2013 HEPATITIS C SCREENING HEPATITIS C SC LINDA [facility] Start: 2009 PEDS TO ADULT TRANSI TION ANNUAL ASSESSMENT PEDS TO ADULT TRANSITION ANNUAL ASSESSMENT [facility] Start: 2007 PEDS TO ADULT TRANSI TION INITIAL DISCUSSION PEDS TO ADULT TRANSITION INITIAL DISCUSSION [facility] Start: 2006 HPV VACCINE (1 - 2-d ose series) HPV VACCINE (1 - 2-dose series) [facility] Start: 2000 COVID-19 VACCINE (#1) COVID-19 VACCI NE (#1) [facility] Start: 04-11-1996 COVID-19 VACCINE (#1) COVID-19 VACCI NE (#1) [facility] Start: 1995 HEPATITIS B (1 of 3 - 3-dose series) HEPATITIS B (1 of 3 - 3-dose series) [facility] Start: 1995 Hepatitis B Vaccine (1 of 3 - 3-dose series) Hepatitis B Vaccine (1 of 3 - 3-dose series) [facility] BACTERIAL VAGINOSIS NAAT BACTERI AL VAGINOSIS NAAT Lab Routine Vaginal discharge 09/13/2023 12:09 PM EST [facility] Work Phone: FRANCESCO/TRICHOMONAS NAAT FRANCESCO /TRICHOMONAS NAAT Lab Routine Vaginal discharge 09/13/2023 12:09 PM [facility] Work Phone: End: 02-28-2024 OBSTETRIC ULTRASOUND WHI OBSTETRIC ULTRASOUND WHI Anc Imaging Routine Supervision of high risk in third trimester History of thyroid disease Once per month for 5 Occurrences starting 09/01/2023 until 02/28/2024 [facility] Work Phone: Comment on above: Once per month for 5 Occurrences starting 09/01/2023 until 02/28/2024 Patient referral [facility] Work Phone: ROUTINE, GR OUP B STREP PCR ROUTINE, GROUP B STREP PCR Microbiology Routine Supervision of high risk in third trimester 09/13/2023 12:09 PM [facility] Work Phone: URINE OB DIP B/O URINE OB DIP B/ O Lab Routine 27 weeks gestation of Ordered: 07/12/2023 [facility] Work Phone: Comment on above: Ordered: 07/12/2023 [facility] Immunizations Immunization Date Immunization Notes Care Provider Keith joseph 07-21-2023 tetanus toxoid, redu aung diphtheria toxoid, and acellular pertussis vaccine, adsorbed Cortney Cash MS SQL SERVER DEVELOPER.CNM Work Phone: [facility] 07-11-2019 tetanus toxoid, redu aung diphtheria toxoid, and acellular pertussis vaccine, adsorbed Vilma Gray APRN.WORLD GEOGRAPHY TEACHER Work Phone: [facility] 04-25-2018 tetanus toxoid, redu aung diphtheria toxoid, and acellular pertussis vaccine, adsorbed Vilma Gray APRN.WORLD GEOGRAPHY TEACHER Work Phone: [facility] 08-02-2015 influenza virus vacc ine, unspecified formulation Leonardo Upton MD Work Phone: [facility] Payers Date Payer Category Payer Self-pay 2022 Medicaid [id number] 2019 Medicaid [id number] 2019 Medicaid [employer] [employer] [place] [id number] 2019-Present [phone] [address] [address] [place] [address] Medicaid [id number] Unknown [id number] Social History Date Type Detail Facility Start: 10-06-2020 [facility] sm[facility] [place] Start: 12-03-2013 End: 12-03-2021 History of tobacco use Cigarette Smoker [place] Start: 10-06-2020 Alcohol intake Current drinke r of alcohol (finding) [place] Start: 10-06-2020 Tobacco Comment unknown if norma ry day or some day smoker [place] Start: 10-06-2020 Alcohol Comment intoxicated on arrival to ED 10/05/20 [place] Start: 1995 Sex Assigned At Not on file [place] Start: 02-24-2022 End: 03-06-2022 Exposure to SARS-CoV-2 (event) Not sure [facility], [place] Start: 08-27-2021 End: 02-15-2023 Tobacco smoking status NHIS Ex-smoker [facility] Work Phone: Start: 08-27-2021 End: 03-25-2023 Cigarettes smoked current (pack per day) - Reported 1 [facility] Start: 08-27-2021 End: 02-15-2023 Tobacco use and exposure Smokeless tobacco non-user [facility] Work Phone: Start: 03-06-2022 End: 01-18-2024 Alcohol intake Ex-drinker (finding) [facility] Start: 12-08-2018 History SDOH Alcohol Comment occ, not while [facility] Start: 07-14-2021 [facility] Start: 12-03-2013 End: 12-03-2021 History of tobacco use Current smoker [facility] Work Phone: Start: 02-15-2023 Education 14 [facility] Start: 03-25-2023 End: 04-05-2023 Tobacco use panel [facility] Start: 10-06-2023 Tobacco smoking stat us NHIS Unknown if ever smoked [facility] Start: 09-01-2018 None [facility] Start: 1995 Sex Assigned At Female W [facility] Goals Date Patient Goal Desired Activity /State Personal health goal Functional Status Date Assessment Result Facility 08-19-2019 Are you deaf, or do you have serious difficulty hearing No 08/19/2019 1:11 PM Cortney Stephens RN [facility] 08-19-2019 Are you blind, or do you have serious difficulty seeing, even when wearing glasses No 08/19/2019 1:11 PM Cortney Stephens RN No [facility] 08-19-2019 Do you have serious difficulty walking or climbing stairs No 08/19/2019 1:11 PM Cortney Stephens RN No [facility] 08-19-2019 Do you have difficul ty dressing or bathing No 08/19/2019 1:11 PM Cortney Stephens RN No [facility] 08-19-2019 Because of a physica l, mental, or emotional condition, do you have difficulty doing errands alone such as visiting a physician's office or shopping No 08/19/2019 1:11 PM EDT Cortney Garcia RN No [facility] Mental Status Date Assessment Result Facility 08-19-2019 Because of a physica l, mental, or emotional condition, do you have serious difficulty concentrating, remembering, or making decisions No 08/19/2019 1:11 PM EDT Cortney Garcia RN No [facility] Clinical Notes 08-19-2019 to 05-09-2025 Telephone [...] have any questions, you can call Nurse outpatient receptionist back. [facility] 05-09-2025 Miscellaneous Notes Formattin g of [...] have any questions, you can call Nurse outpatient receptionist back. documented in this encounter [facility] 02-17-2024 Telephone encount er Note 2nd attempt to contact the patient to schedule colposcopy. [facility] mesg sent 01/10- not read Unable to leave vm mesg, phone not in service. A letter will be mailed to home. Nenita Butt Admin Geotechnical Operating Engineer [facility] 02-17-2024 Miscellaneous Notes Formattin g of this note might be different from the original. 2nd attempt to contact the patient to schedule colposcopy. [facility] mesg sent 01/10- not read Unable to leave vm mesg, phone not in service. A letter will be mailed to home. Nenita Butt Admin Geotechnical Operating Engineer [facility] 1st attempt to contact the patient to schedule colposcopy. Unable to reach patient, phone line unable to take calls at this time. Will attempt at later time. Nenita Butt Admin Geotechnical Operating Engineer [facility] documented in this encounter [facility] 02-15-2024 Telephone encount er Note 1st attempt to contact the patient to schedule colposcopy. Unable to reach patient, phone line unable to take calls at this time. Will attempt at later time. Nenita Butt Admin Geotechnical Operating Engineer [facility] 01-18-2024 Note HNO ID: [id number] Author: LAKEISHA FORTUNE APRN.WORLD GEOGRAPHY TEACHER Service: ? Author Type: Nurse Practitioner Type: [...] bedtime. (Patient not taking: Reported on 11/24/2023) [id number] ps-folate 1 29 mg iron- 1 mg [...] tenderness or frontal sinus tenderness. Mouth/Throat: Lips: Escobares. No lesions. Mouth: Mucous membranes are moist. [...] symptoms of dehydration (more content not included)... [facility] 01-18-2024 Instructions Lakeisha Fortune, [facility]LE[facility] - 01/18/2024 8:34 AM EDT - Change [...] treated with antibiotics. When to call the fan mail clerk If your child has a sore throat that persists (not one that goes away after her first drink in the morning), whether or not it is accompanied by fever, headache, stomachache, or extreme fatigue, you should call your fan mail clerk. That call should be made even more urgently if your child seems extremely ill, or if she has difficulty breathing or extreme trouble swallowing (causing her to drool). This may indicate a more serious infection. Treatment If the strep test shows that your child does have strep throat, your fan mail clerk will prescribe an antibiotic to be taken [...] the best solution. documented in this encounter [facility] 01-18-2024 History of Presen t illness [...] bedtime. (Patient not taking: Reported on 11/24/2023) [id number] ps-folate 1 29 mg iron- 1 mg [...] tenderness or frontal sinus tenderness. Mouth/Throat: Lips: Escobares. No lesions. Mouth: Mucous membranes are moist. [...] improve in the next 2-3 days. Lakeisha Frotune APRN.WORLD GEOGRAPHY TEACHER documented in this encounter [facility] 01-03-2024 Miscellaneous Notes Formattin g of [...] for today 01/03/2024 documented in this encounter [facility] 12-28-2023 Note HNO ID: [id number] Author: KARI RAMOS MD Service: ? Author Type: Physician Type: Progress Notes Filed: 12/28/2023 12:18 Note Text: Remarketing Rep offered: Patient declinesAbdulaziz Maldonado is a 28 [...] positive occurs test: negative Nexplanon lot #: [id number] Exp date: 09/23/25 [facility]: [id number] UNIVERSAL PROTOCOL / SAFETY CHECKLIST Procedure to [...] contraception for 7 days. Kari Ramos MD [facility] 12-21-2023 Miscellaneous Notes Formattin g of this note might be different from the original. Third attempt to contact patient. Number not working. Letter sent. Marii Gonsales RN Attempted to call patient again but phone number is still not accepting calls. Consuelo Still RN Attempted to contact patient but number listed for patient is currently not accepting calls. [employer] message and letter sent. Appointment note for upcoming appointment tomorrow updated to notify of results. Marii Gonsales RN ----- Message from Gracy oRss MD sent at 12/06/2023 1:24 PM EST ----- Ascus-H and HPV + , needs colposcopy scheduled. documented in this encounter [facility] 11-24-2023 Note HNO ID: [id number] Author: GRACY RIVAS MD Service: ? Author Type: Physician Type: Progress Notes Filed: 11/24/2023 16:42 Note Text: Remarketing Rep offered: Patient declines. VISIT Erica Toro is a 28 year old year old here for visit. Delivery Summary: 10/06/2024 ROS/ Recovery: Feeding: Breast feeding problems: None Menses since delivery: spotting Menstrual pattern prior to : Regular periods [place] since delivery: Not resumed Depression: denies symptoms [...] external genitalia normal, normal Bartholin's glands, urethra, El Castillo's glands, no vulvar lesions, no cervical lesions, [...] today., RTO for nexplanon Gracy Clark MD [facility] 10-07-2023 Discharge summary Note Date/Time October 07, 2023 8:40am [facility] Medical Records Department [address] [place] [address] Discharge Summary 10/07/23 0838 MR#: [id number] Acct: [id number] Name: ERICA TORO Rep #:[id number] : 1995 27 From: Krystian Valencia MD PCP: Care Physician,No Primary Status :ADM IN Location: PN833-4 Providers Date of Admission: 10/06/23 Primary Care [...] 81.4 H, Lymph % (Auto) 12.5 L, Dooly % (Auto) 5.0, Eos % (Auto) 0.5, [...] Valencia MD; No Primary Care Physician~ Signed [facility] Work Phone: [phone]) 907-857512-14-2023 NoteHNO ID: [id number] Author: Kari Balderas RN Service: ? Author Type: Registered Nurse Type: Progress Notes Filed: 10/07/2023 8:41 AM Note Text: Patient delivered via at [facility] on 10/06/23 per Cortney Cash CNM. See OB Outcome note. [facility]as [facility] Note [facility] Medical Records Department [address] [place] [address] Discharge Summary 10/07/23 0838 MR#: [id number] Acct: [id number] Name: ERICA TORO Rep #: [id number] : 1995 27 From: Krystian Valencia MD PCP: Care Physician,No Primary Status:ADM IN Location: EF165-5 Providers Date of Admission: 10/06/23 Primary Care [...] 81.4 H, Lymph % (Auto) 12.5 L, Dooly % (Auto) 5.0, Eos % (Auto) 0.5, [...] can be placed): Home, Self Care 10/07/23 7769 Cosigner Signature (if applicable): CC: Dr. Krystian Valencia MD; No Primary [facility] Progress note Author Krystian Valencia [facility] October 07, 2023 8:37am Note Date/Time October 07, 2023 8:37am [facility] Medical Records Department [address] [place] [address] Progress Note - OBGYN 10/07/23 0835 MR#: [id number] Acct: [id number] Name: ERICA TORO Rep #:[id number] : 1995 27 From: Krystian Valencia MD PCP: Care Physician,No Primary Status :ADM IN Location: [id number] Subjective Subjective Denies complaints Objective Data Objective [...] 81.4 H, Lymph % (Auto) 12.5 L, Dooly % (Auto) 5.0, Eos % (Auto) 0.5, [...] Cosigner Signature (if applicable): CC: ~ Signed [facility] Work Phone: 1(763) 574-913812-13-2023 History and physical note Author Cortney Cash [facility] October 06, 2023 4:49pm Note Date/Time October 06, 2023 4:49pm [facility] Medical Records Department [address] [place] [id number] H&P Exam - WHEAT SHIPPER 10/06/23 1643 MR#: [id number] Acct: [id number] Name: ERICA TORO Rep #:[id number] : 1995 27 From: Cortney Cash CNM PCP: Care Physician,No Primary Status :ADM IN Location: WW304-7 HPI - General General Date of Admission: [...] of admission and is collaborating physician 10/06/23 3363 <Electronically signed by Cortney Cash CNM> Cosigner Signature (if applicable): CC: SURESH Cash; No Primary Care Physician~ Signed [facility] Work Phone: [phone]) 645-816812-13-2023 Procedure [facility] 10-05-2023 Miscellaneous Notes* Quick Notes - Krystian [...] reviewed. Krystian Valencia MD [facility] Instructions* Patient Instructions* s Cha Zaman - 10/05/2023 1:53 PM EST SEQUENTIAL SCREENINGS [facility] offers sequential screenings for women who [...] testing. It will require an appointment withour coroner forensic technician. This is not an ultrasound performed [...] the above symptoms, contact our office at [phone] and ask to speak with anurse. After hours, you can call doctors registry at [phone] OR call [facility] at [phone] ask to have the doctor concrete puddler paged. If you consider this an emergency, dial 9-1-5 or go to your nearest emergency department. NEED HELP? Are you dealing with a violent or abusive relationship? Are you a victim of rape or sexual assult? Call [facility] ([place]) 24 hour Crisis Hotline: 600.174.7286 or 342-642-1887. MANUAL Your Guide to a Healthy manual is now on-line. Visit [email or web address] to download your free copy [facility]12[facility]23 Miscellaneous Notes* Quick Notes - Gracy [...] week Gracy Clark MD [facility]23 Instructions* Patient Instructions* Marilyn Darden Ma - 09/27/2023 11:17 AM EST SEQUENTIAL SCREENINGS [facility] offers sequential screenings for women who [...] testing. It will require an appointment withour coroner forensic technician. This is not an ultrasound performed [...] the above symptoms, contact our office at [phone] and ask to speak with anurse. After hours, you can call doctors registry at [phone] OR call [facility] at [phone] ask to have the doctor concrete puddler paged. If you consider this an emergency, dial 8-0-4 or go to your nearest emergency department. NEED HELP? Are you dealing with a violent or abusive relationship? Are you a victim of rape or sexual assult? Call [facility] ([facility] 24 hour Crisis Hotline: 899.388.2636 or 338-029-3683. MANUAL Your Guide to a Healthy manual is now on-line. Visit [email or web address] to download your free copy [facility]12-[facility]-2023 NoteHNO ID: [id number] Author: Pat Wilkins MA Service: ? Author Type: Physical Security Manager Type: Progress Notes Filed: 09/24/2023 12:51 PM Note Text: POPULATION HEALTH NAVIGATION OUTREACH Action/FYI Called and spoke with pt and confirmed fan mail clerk. Patient Identified by Name and : YES, via phone Outreach Outcome/Action OB/PEDS field updated Did you use a PCP flex slot to schedule this appointment? N/A Reason for Outreach Fults Payer: Payor: [place] [employer] / Plan: [employer] MEDICA[employer] [facility] / Product Type: Medicaid / Care Gap Reviewed:: N/A Reminder: Reminder note to check Health Maintenance for items below Health Maintenance items due: Hepatitis B Vaccine(1 of 3 - 3-dose series) Never done Covid-19 Vaccine(1) Never done Depression Assessment Never done Influenza Vaccine(1) due on 06/25/2023 Navigation Signature: Pat Hammonds MA September 24, 2023 12:51 [facility]12-01-2023 NotePatient Outreach (NETNAV) ERICA TORO ([id number]) 1995 F Date Time Provider Department 09/24/23 PAT WILKINS During your visit today, we recorded the following information about you: Pat Wilkins MA 09/24/2023 12:51 PM Signed POPULATION HEALTH NAVIGATION OUTREACH Action/FYI Called and spoke with pt and confirmed fan mail clerk. Patient Identified by Name and : YES, via phone Outreach Outcome/Action OB/PEDS field updated Did you use a PCP flex slot to schedule this appointment? N/A Reason for Outreach Payer: Payor: [place] [employer] / Plan: [employer] MEDICA[employer] [facility] / Product Type: Medicaid / Care [...] tablet by mouth daily at bedtime. - [id number] ps-folate 1 29 mg iron- 1 mg [...] *08/18/2023 Encounter Status:Closed by PAT WILKINS on 09/24/23[facility] 09-24-2023 History of Present illness Narrative* Pat Wilkins MA - 09/24/2023 12:49 PM EST POPULATION HEALTH NAVIGATION OUTREACH Action/FYI Called and spoke with pt and confirmed fan mail clerk. Patient Identified by Name and : YES, via phone Outreach Outcome/Action OB/PEDS field updated Did you use a PCP flex slot to schedule this appointment? N/A Reason for Outreach Fults Payer: Payor: [place] / Plan: [employer] MEDICAID OF [place] / Product Type: Medicaid / Care Gap Reviewed:: N/A Reminder: Reminder note to check Health Maintenance for items below Health Maintenance items due: Hepatitis B Vaccine(1 of 3 - 3-dose series) Never done Covid-19 Vaccine(1) Never done Depression Assessment Never done Influenza Vaccine(1) due on 06/25/2023 Navigation Signature: Pat Hammonds MA September 24, 2023 12:51 PM [facility] Miscellaneous Notes* Quick Notes - Maritza [...] negative Maritza Richard APRN.CNM [facility]11-27-[facility]23 Instructions* Patient Instructions* Félix Knight Cma - 09/20/2023 2:19 PM EST SEQUENTIAL SCREENINGS [facility] offers sequential screenings for women who [...] testing. It will require an appointment withour coroner forensic technician. This is not an ultrasound performed [...] the above symptoms, contact our office at [phone] and ask to speak with anurse. After hours, you can call doctors registry at [phone] OR call [facility] at [phone] ask to have the doctor concrete puddler paged. If you consider this an emergency, dial 9-1-1 or go to your nearest emergency department. NEED HELP? Are you dealing with a violent or abusive relationship? Are you a victim of rape or sexual assult? Call [facility] ([place]) 24 hour Crisis Hotline: 812.442.3551 or 426-989-0617. MANUAL Your Guide to a Healthy manual is now on-line. Visit [email or web address] to download your free copy documented in this encounterGalion Hospital11-21-[facility]23 Miscellaneous Notes* Telephone Encounter - Kari [...] needed. Dulce Shannon APRN.CNP documented in this encounterGalion Hospital11-20-2023 Miscellaneous Notes* Quick Notes - Dulce [...] results. Dulce Shannon APRN.CNP documented in this encounterGalion Hospital11-20-2023 Instructions* Patient Instructions* Pat NguyễnCYNTHIA - 09/13/2023 11:20 AM EST SEQUENTIAL SCREENINGS [facility] offers sequential screenings for women who [...] testing. It will require an appointment withour coroner forensic technician. This is not an ultrasound performed [...] the above symptoms, contact our office at [phone] and ask to speak with anurse. After hours, you can call doctors registry at [phone] OR call [facility] at [phone] ask to have the doctor concrete puddler paged. If you consider this an emergency, dial 9-1-1 or go to your nearest emergency department. NEED HELP? Are you dealing with a violent or abusive relationship? Are you a victim of rape or sexual assult? Call [facility] ([place]) 24 hour Crisis Hotline: 972.723.1444 or 182-253-1080. MANUAL Your Guide to a Healthy manual is now on-line. Visit [email or web address] to download your free copy documented in this encounterGalion Hospital11-09-2023 Miscellaneous Notes* Telephone Encounter - Anahy [...] feeling? Lon Aranda APRN.NGUYEN documented in this encounterGalion Hospital11-09-2023 Miscellaneous Notes* Telephone Encounter - Kari [...] hydrated and restoring electrolytes with a Body Scalf Lyte. Let me know if there are any questions! Lon Aranda APRN.CNP documented in this encounterGalion Hospital11-08-2023 Miscellaneous Notes* Quick Notes - Lon [...] need iron transfusions depending on result 6. Donley Hick's contraction - ICD9: 644.10, ICD10: O47.9 - Painful, random - Hydration encouraged - 1 cm, 60%, -2 - PTL precautions reviewed. Lon Aranda APRN.CNP Medical Decision Making: Problems: Moderate: New problem with uncertain prognosis Data: Unique test(s) ordered: 3+ Risk: Minimal: Minimal risk from testing/treatment Medical Decision Making Level: 4 - Moderate documented in this encounterGalion Hospital11-08-2023 Instructions* Patient Instructions* s Cha Zaman - 09/01/2023 2:10 PM EST SEQUENTIAL SCREENINGS [facility] offers sequential screenings for women who [...] testing. It will require an appointment withour coroner forensic technician. This is not an ultrasound performed [...] the above symptoms, contact our office at [phone] and ask to speak with anurse. After hours, you can call [employer] [facility] at [phone] OR call [facility] at [phone] ask to have the doctor concrete puddler paged. If you consider this an emergency, dial 9-1-7 or go to your nearest emergency department. NEED HELP? Are you dealing with a violent or abusive relationship? Are you a victim of rape or sexual assult? Call [facility] ([place]) 24 hour Crisis Hotline: 306.324.9424 or 658-570-1290. MANUAL Your Guide to a Healthy manual is now on-line. Visit [email or web address] to download your free copy documented in this encounterGalion Hospital10-25-2023 History of Past illness Narrative* Problem Noted Date Diagnosed Date Resolved Date Anemia complicating pregnanc y, third trimester 08/18/2023 11/24/2023 Current with histo ry of spontaneous during prior 02/15/2023 11/24/19 24 Overview: 02/15/2023atient had a history of a miscarriage August 2021. Denies any bleeding pain or cramping this .TKRN Subchorionic hematoma in first trimester 09/08/2021 02/19/2023 Overview: 09/08/21- [facility] ED US report. Cortney Cash APRN.CNM Vaginal [...] of this encounter (statuses as of 12/21/2023) [facility] History of Past illness Narrative* Problem Noted Date Diagnosed Date Resolved Date Anemia complicating pregnanc y, third trimester 08/18/2023 11/24/2023 Current with histo ry of spontaneous during prior 02/15/2023 11/24/19 24 Overview: 02/15/2023atient had a history of a miscarriage August 2021. Denies any bleeding pain or cramping this .TKRN Subchorionic hematoma in first trimester 09/08/2021 02/19/2023 Overview: 09/08/21- [facility] ED US report. Cortney Cash APRN.CNM Vaginal [...] of this encounter (statuses as of 01/03/2024) [facility] History of Past illness Narrative* Problem Noted Date Diagnosed Date Resolved Date Anemia complicating pregnanc y, third trimester 08/18/2023 11/24/2023 Current with histo ry of spontaneous during prior 02/15/2023 11/24/19 Overview: 02/15/2023atient had a history of a miscarriage August 2021. Denies any bleeding pain or cramping this .TKRN Subchorionic hematoma in first trimester 09/08/2021 02/19/2023 Overview: 09/08/21- [facility] ED US report. Cortney Cash APRN.CNM Vaginal [...] of this encounter (statuses as of 01/18/2024) [facility] Miscellaneous Notes* Quick Notes - Cortney [...] weeks Cortney Cash APRN.CNM documented in this encounterGalion Hospital10-25-2023 Instructions* Patient Instructions* Pat Nguyễn MA - 08/18/2023 10:22 AM EDT SEQUENTIAL SCREENINGS [facility] offers sequential screenings for women who [...] testing. It will require an appointment withour coroner forensic technician. This is not an ultrasound performed [...] the above symptoms, contact our office at [phone] and ask to speak with anurse. After hours, you can call doctors registry at [phone] OR call [facility] at [phone] ask to have the doctor concrete puddler paged. If you consider this an emergency, dial 9-1-6 or go to your nearest emergency department. NEED HELP? Are you dealing with a violent or abusive relationship? Are you a victim of rape or sexual assult? Call [facility] [place] ([facility] 24 hour Crisis Hotline: 485.759.2028 or 729-835-9192. MANUAL Your Guide to a Healthy manual is now on-line. Visit [email or web address] to download your free copy documented in this encounterGalion Hospital09-29-2023 Miscellaneous Notes* Telephone Encounter - Anahy Wood RN - 07/23/2023 4:59 PM EDT Patient did view [employer] by [employer] message at 10:34 AM on 07/23/2023. * Telephone Encounter - Priyanka Doe LPN - 07/22/2023 2:23 PM EDT Message left asking pt to call the office for results. Pt was also sent Wikia message with results and further orders. Will [...] weeks. Cortney Cash APRN.CNM documented in this encounterGalion Hospital09-27-2023 NoteHNO ID: [id number] Author: Marilyn Darden Ma Service: ? Author [...] severely ill: Yes Patient denies history of Guillain-[place] Syndrome (a severe paralytic illness): Yes Tdap Adacel injection was given without incident. See immunizations for details of immunizations administered today. VIS sheet provided: Yes Provider Vandana was present in office at time of injection. Marilyn Darden [facility]09-18-2023 Miscellaneous Notes* Quick Notes - Gracy Rivas MD - 07/12/2023 1:58 PM EDT DM- had some light bleeding yesterday and today with mild cramping- she describes no pain with it. Denies LOF. Pt reports good FM. Denies [place]. Denies abnormal discharge or odor. Exam: Gen: female in NAD Abd: soft, gravid, non tender Speculum; +thick white dc c/w yeast. No blood in vault, no active bleeding. Cervix appears thick and closed. VE: C/T/H @ 27.3 weeks- Vaginal bleeding 1) yeast infection- Monistat 7 OTC 2) PO fluids 3) Urine culture 4) S/sx PTL reviewed Gracy Clark MD documented in this encounterGalion Hospital09-18-2023 Instructions* Patient Instructions* Pat Nguyễn MA - 07/12/2023 1:13 PM EDT SEQUENTIAL SCREENINGS [facility] offers sequential screenings for women who [...] testing. It will require an appointment withour coroner forensic technician. This is not an ultrasound performed [...] the above symptoms, contact our office at [phone] and ask to speak with anurse. After hours, you can call doctors registry at [phone] OR call [facility] at [phone] ask to have the doctor concrete puddler paged. If you consider this an emergency, dial 9-8-7 or go to your nearest emergency department. NEED HELP? Are you dealing with a violent or abusive relationship? Are you a victim of rape or sexual assult? Call [facility] ([place]) 24 hour Crisis Hotline: 508.892.9131 or 754-941-9748. MANUAL Your Guide to a Healthy manual is now on-line. Visit [email or web address] to download your free copy documented in this encounterGalion Hospital09-18-2023 Miscellaneous Notes* Telephone Encounter - Priyanka [...] advise. Anahy Wood RN documented in this encounterGalion Hospital08-30-2023 Miscellaneous Notes* Quick Notes - Cortney [...] GCT. Cortney Cash APRN.CNM documented in this encounterGalion Hospital08-30-2023 Instructions* Patient Instructions* Félix Knight Cma - 06/23/2023 2:25 PM EDT SEQUENTIAL SCREENINGS [facility] offers sequential screenings for women who [...] testing. It will require an appointment withour coroner forensic technician. This is not an ultrasound performed [...] the above symptoms, contact our office at [phone] and ask to speak with anurse. After hours, you can call doctors registry at [phone] OR call [facility] at [phone] ask to have the doctor concrete puddler paged. If you consider this an emergency, dial 1-6-1 or go to your nearest emergency department. NEED HELP? Are you dealing with a violent or abusive relationship? Are you a victim of rape or sexual assult? Call [facility] ([place]) 24 hour Crisis Hotline: 108.324.1544 or 210-394-1559. MANUAL Your Guide to a Healthy manual is now on-line. Visit [email or web address] to download your free copy documented in this encounterGalion Hospital08-09-2023 Miscellaneous Notes* Telephone Encounter - Kari Balderas RN - 06/02/2023 4:50 PM EDT Faxed * Telephone Encounter - Kari Balderas RN - 06/02/2023 4:21 PM EDT [id number] Re[facility] breast pump [facility] [email or web address]. To CP to sign. Kari Balderas RN documented in this encounterGalion Hospital08-02-2023 Miscellaneous Notes* Quick Notes - Gracy [...] wks Gracy Clark MD documented in this encounterGalion Hospital08-02-2023 Instructions* Patient Instructions* Marilyn Darden Ma - 05/26/2023 1:46 PM EDT SEQUENTIAL SCREENINGS [facility] offers sequential screenings for women who [...] testing. It will require an appointment withour coroner forensic technician. This is not an ultrasound performed [...] the above symptoms, contact our office at [phone] and ask to speak with anurse. After hours, you can call [employer] registry at [phone] OR call [facility] at [phone] ask to have the doctor concrete puddler paged. If you consider this an emergency, dial 9-1-1 or go to your nearest emergency department. NEED HELP? Are you dealing with a violent or abusive relationship? Are you a victim of rape or sexual assult? Call [facility] ([place]) 24 hour Crisis Hotline: 222.289.8397 or 980-219-3013. MANUAL Your Guide to a Healthy manual is now on-line. Visit [email or web address] to download your free copy documented in this encounterGalion Hospital06-28-2023 Miscellaneous Notes* Quick Notes - Martiza Richard APRN.CNM - 04/21/2023 3:39 PM EDT [...] PNV Maritza Richard APRN.CNM documented in this encounterGalion Hospital06-28-2023 Instructions* Patient Instructions* Marilyn Darden Ma - 04/21/2023 3:30 PM EDT SEQUENTIAL SCREENINGS [facility] offers sequential screenings for women who [...] testing. It will require an appointment withour coroner forensic technician. This is not an ultrasound performed [...] the above symptoms, contact our office at [phone] and ask to speak with anurse. After hours, you can call doctors registry at [phone] OR call [facility] at [phone] ask to have the doctor concrete puddler paged. If you consider this an emergency, dial 9-5 or go to your nearest emergency department. NEED HELP? Are you dealing with a violent or abusive relationship? Are you a victim of rape or sexual assult? Call [facility] ([place]) 24 hour Crisis Hotline: 674.267.1349 or 928-101-1834. MANUAL Your Guide to a Healthy manual is now on-line. Visit [email or web address] to download your free copy documented in this encounterGalion Hospital06-12-2023 NoteHNO ID: [id number] Author: Leonardo Upton MD Service: ? Author Type: Physician Type: Progress Notes Filed: 04/05/2023 5:35 PM Note Text: Remarketing Rep offered: Patient declines. Maldonado is a 27 [...] Follow up . +FHT today. Leonardo Upton, DOCTwin [facility]06-01-2023 Miscellaneous Notes* Quick Notes - Cortney Cash [...] colposcopy. Cortney Cash APRN.CNM documented in this encounterGalion Hospital06-01-2023 Instructions* Patient Instructions* Félix Knight Cma - 03/25/2023 2:43 PM EDT SEQUENTIAL SCREENINGS [facility] offers sequential screenings for women who [...] testing. It will require an appointment withour coroner forensic technician. This is not an ultrasound performed [...] the above symptoms, contact our office at [phone] and ask to speak with anurse. After hours, you can call doctors registry at [phone] OR call [facility] at [phone] ask to have the doctor concrete puddler paged. If you consider this an emergency, dial 6-1-5 or go to your nearest emergency department. NEED HELP? Are you dealing with a violent or abusive relationship? Are you a victim of rape or sexual assult? Call [facility] ([place]) 24 hour Crisis Hotline: 649.770.2624 or 279-356-5712. MANUAL Your Guide to a Healthy manual is now on-line. Visit [email or web address] to download your free copy documented in this encounterGalion Hospital05-09-2023 Miscellaneous Notes* Telephone Encounter - Marii [...] answer and unable to leave a message. [employer] message sent to patient. Marii Gonsales RN * Telephone Encounter - Marii Gonsales RN - 02/26/2023 11:44 AM EDT ----- Message from Maritza Richard APRN.CNM sent at 02/26/2023 11:35 AM EDT ----- Please notify patient ASCUS with positive HR HPV. Will need colposcopy with physician after 12 weeks. Thank you, Maritza Richard APRN.CNM documented in this encounterGalion Hospital04-28-2023 NoteHNO ID: [id number] Author: Maritza Richard APRN.CNM Service: ? Author Type: Milk Bottler Type: Progress Notes Filed: 02/19/2023 7:13 PM Note Text: OB point of care ultrasound was performed. See imaging tab for details. Maritza Richard APRN.CNMer[facility]04-27-2023 NoteHNO ID: [id number] Author: Maritza Richard APRN.CNM Service: ? Author Type: Milk Bottler Type: Progress Notes Filed: 02/19/2023 7:17 PM Note Text: INITIAL OB ASSESSMENT OB Provider: Maritza Richard CNM HPI: Erica is a 27 year old White here [...] use: No Multivitamin with Folic acid: Yes Restoration or heritage: No Would refuse blood transfusion [...] Partner: Name: Jaden Childs Age: 27 Occupation: [employer]. Gender: Male History of STDs: None PAST [...] Negative for: Swelling, Pain, (more content not included)...[facility]04-24-2023 History of Present illness Narrative* Manju Calvo [...] Living: None, Comments: None documented in this encounterGalion Hospital04-24-2023 Miscellaneous Notes* Quick Notes - Manju [...] insurance coverage.Manju Calvo RN documented in this encounterGalion Hospital05-13-2022 Instructions* Patient Instructions* Vilma Gray APRN.WORLD GEOGRAPHY TEACHER - 03/06/2022 11:25 AM EDT Oral Contraceptives: [...] pills. Theseare formulated to give you a pressure tank operator period. Unless otherwise instructed, you should [...] less iron deficiency anemia in pill users. retirement use is associated with a decreased incidence [...] and mild fluid retention. There is no chcf weight gain with the use of the [...] for necessary health information. documented in this encounterGalion Hospital05-13-2022 History of Present illness Narrative* Vilma [...] L3 SAB0 IAB0 Ectopic0 Multiple0 Live Births3 Mud Engineer History LMP: 07/01/2021 (Exact Date), Age at Menarche: Age at First : Age at Menopause: Mud Engineer History Comments: Sexual Activity: Yes; Male Contraception: [...] which included preparing to see the patient, [id number] patient care, completing clinical documentation, obtaining and/or reviewing separately obtained history, performing a medically appropriate examination, counseling and educating the pat ient/family/caregiver and ordering medications, tests, or procedures. documented in this encounterGalion Hospital11-15-2021 History of Past illness Narrative* Problem Noted Date Resolved Date Subchorionic hematoma in first trimester 021 02/19/2023 Overview: 09/08/21- [facility] ED US report. Cortney Cash APRN.CNM Vaginal [...] of this encounter (statuses as of 03/02/2023) [facility] History of Past illness Narrative* Problem Noted Date Resolved Date Subchorionic hematoma in first trimester 021 02/19/2023 Overview: 09/08/21- [facility] ED US report. Cortney Cash APRN.ARCADIOM Vaginal [...] of this encounter (statuses as of 03/08/2023) [facility] History of Past illness Narrative* Problem Noted Date Resolved Date Subchorionic hematoma in first trimester 021 02/19/2023 Overview: 09/08/21- [facility] ED US report. Cortney Cash APRN.CNM Vaginal [...] of this encounter (statuses as of 03/26/2023) [facility] History of Past illness Narrative* Problem Noted Date Resolved Date Subchorionic hematoma in first trimester 021 02/19/2023 Overview: 09/08/21- [facility] ED US report. Cortney Cash APRN.CNM Vaginal [...] of this encounter (statuses as of 03/26/2023) [facility] of Past illness Narrative* Problem Noted Date Resolved Date Subchorionic hematoma in first trimester 021 02/19/2023 Overview: 09/08/21- [facility] ED US report. Cortney Cash APRN.CNM Vaginal [...] of this encounter (statuses as of 04/22/2023) [facility] History of Past illness Narrative* Problem Noted Date Diagnosed Date Resolved Date Subchorionic hematoma in first trimester 09/08/2021 02/19/2023 Overview: 09/08/21- [facility] ED US report. Cortney Cash APRN.CNM Vaginal [...] of this encounter (statuses as of 05/27/2023) [facility] History of Past illness Narrative* Problem Noted Date Diagnosed Date Resolved Date Subchorionic hematoma in first trimester 09/08/2021 02/19/2023 Overview: 09/08/21- [facility] ED US report. Cortneyanita Cash APRN.CNM Vaginal [...] of this encounter (statuses as of 05/27/2023) [facility] History of Past illness Narrative* Problem Noted Date Diagnosed Date Resolved Date Subchorionic hematoma in first trimester 09/08/2021 02/19/2023 Overview: 09/08/21- [facility] ED US report. Cortney Cash APRN.ARCADIOM Vaginal [...] of this encounter (statuses as of 06/03/2023) [facility] of Past illness Narrative* Problem Noted Date Diagnosed Date Resolved Date Subchorionic hematoma in first trimester 09/08/2021 02/19/2023 Overview: 09/08/21- [facility] ED US report. Cortney Cash APRN.CNM Vaginal [...] of this encounter (statuses as of 06/15/2023) [facility] of Past illness Narrative* Problem Noted Date Diagnosed Date Resolved Date Subchorionic hematoma in first trimester 09/08/2021 02/19/2023 Overview: 09/08/21- [facility] ED US report. Cortney Cash APRN.CNM Vaginal [...] of this encounter (statuses as of 06/24/2023) [facility] of Past illness Narrative* Problem Noted Date Diagnosed Date Resolved Date Subchorionic hematoma in first trimester 09/08/2021 02/19/2023 Overview: 09/08/21- [facility] ED US report. Cortney Cash APRN.CNM Vaginal [...] of this encounter (statuses as of 06/29/2023) [facility] of Past illness Narrative* Problem Noted Date Diagnosed Date Resolved Date Subchorionic hematoma in first trimester 09/08/2021 02/19/2023 Overview: 09/08/21- [facility] ED US report. Cortney Cash APRN.CNM Vaginal [...] of this encounter (statuses as of 07/12/2023) [facility] of Past illness Narrative* Problem Noted Date Diagnosed Date Resolved Date Subchorionic hematoma in first trimester 09/08/2021 02/19/2023 Overview: 09/08/21- [facility] ED US report. Cortney CashCELESTE.CNM Vaginal bleeding during 09/08/2021 02/19/2023 40 weeks gestation of 08/19/2019 09/08/2021 Overview: - Denies complications during this - last office check pt states she was 1 cm dilated - Endorsing leakage of fluid - Nitrazine/Ferning Negative - MADISNO 21cm Per Dr. Beckwith - Plan to [...] of this encounter (statuses as of 07/13/2023) [facility] History of Past illness Narrative* Problem Noted Date Diagnosed Date Resolved Date Subchorionic hematoma in first trimester 09/08/2021 02/19/2023 Overview: 09/08/21- [facility] ED US report. Cortney Cash APRN.ARCADIOM Vaginal [...] of this encounter (statuses as of 07/24/2023) [facility] of Past illness Narrative* Problem Noted Date Diagnosed Date Resolved Date Subchorionic hematoma in first trimester 09/08/2021 02/19/2023 Overview: 09/08/21- [facility] ED US report. Cortney Cash APRN.CNM Vaginal [...] of this encounter (statuses as of 08/18/2023) [facility] of Past illness Narrative* Problem Noted Date Diagnosed Date Resolved Date Subchorionic hematoma in first trimester 09/08/2021 02/19/2023 Overview: 09/08/21- [facility] ED US report. Cortney Cash APRN.CNM Vaginal [...] of this encounter (statuses as of 09/02/2023) [facility] of Past illness Narrative* Problem Noted Date Diagnosed Date Resolved Date Subchorionic hematoma in first trimester 09/08/2021 02/19/2023 Overview: 09/08/21- [facility] ED US report. Cortney Cash APRN.ARCADIOM Vaginal [...] of this encounter (statuses as of 09/02/2023) [facility] of Past illness Narrative* Problem Noted Date Diagnosed Date Resolved Date Subchorionic hematoma in first trimester 09/08/2021 02/19/2023 Overview: 09/08/21- [facility] ED US report. Cortney Cash APRN.CNM Vaginal [...] of this encounter (statuses as of 09/03/2023) [facility] of Past illness Narrative* Problem Noted Date Diagnosed Date Resolved Date Subchorionic hematoma in first trimester 09/08/2021 02/19/2023 Overview: 09/08/21- [facility] ED US report. Cortney PrattCELESTE deluna.CNM Vaginal [...] of this encounter (statuses as of 09/13/2023) [facility] of Past illness Narrative* Problem Noted Date Diagnosed Date Resolved Date Subchorionic hematoma in first trimester 09/08/2021 02/19/2023 Overview: 09/08/21- [facility] ED US report. Cortney Cash APRN.ARCADIOM Vaginal [...] of this encounter (statuses as of 09/14/2023) [facility] of Past illness Narrative* Problem Noted Date Diagnosed Date Resolved Date Subchorionic hematoma in first trimester 09/08/2021 02/19/2023 Overview: 09/08/21- [facility] ED report. Cortney Cash APRN.CNM Vaginal bleeding [...] of this encounter (statuses as of 09/21/2023) [facility] History of Past illness Narrative* Problem Noted Date Diagnosed Date Resolved Date Subchorionic hematoma in first trimester 09/08/2021 02/19/2023 Overview: 09/08/21- [facility] ED US report. Cortney Cash APRN.ARCADIOM Vaginal [...] of this encounter (statuses as of 09/21/2023) [facility] History of Past illness Narrative* Problem Noted Date Diagnosed Date Resolved Date Subchorionic hematoma in first trimester 09/08/2021 02/19/2023 Overview: 09/08/21- [facility] ED US report. Cortney Cash APRN.ARCADIOM Vaginal [...] of this encounter (statuses as of 09/24/2023) [facility] History of Past illness Narrative* Problem Noted Date Diagnosed Date Resolved Date Subchorionic hematoma in first trimester 09/08/2021 02/19/2023 Overview: 09/08/21- [facility] ED US report. Cortney Cash APRN.CNM Vaginal [...] of this encounter (statuses as of 09/27/2023) [facility] History of Past illness Narrative* Problem Noted Date Diagnosed Date Resolved Date Subchorionic hematoma in first trimester 09/08/2021 02/19/2023 Overview: 09/08/21- [facility] ED US report. Cortney CashCELESTE.CNM Vaginal bleeding [...] of this encounter (statuses as of 10/06/2023) [facility] History of Past illness Narrative* Problem [...] of this encounter (statuses as of 03/06/2022) [facility] History of Past illness Narrative* Problem [...] of this encounter (statuses as of 02/16/2023) [facility] [place] [facility] Diagnosis Irregular menses- Primary Irregular menstrual cycle Encounter for BCP ( control pills) initial prescription General counseling for prescription of oral contraceptives General counseling and advice for contraceptive management Other general counseling and advice for contraceptive management [facility] Diagnosis Current with history of spontaneous during prior - Primary History of bipolar disorder Personal history of affective disorder History of alcohol abuse Nondependent alcohol abuse, in remission History of thyroid disorder Patient request for diagnostic testing Other specified examination [facility] [place] [facility]* Diagnosis Encounter to determine viability of , single or unspecified fetus- Primary with uncertain viability, single or unspecified [facility] 11 weeks [facility] of - Primary state, incidental [facility] Diagnosis Encounter for (NT) nuchal translucency scan- Primary Other specified screening 11 weeks gestation of state, incidental [facility] Diagnosis 15 weeks gestation of - Primary state, incidental [facility] Diagnosis Encounter for supervision of other normal in second trimester- Primary 20 weeks gestation of state, incidental [facility] Diagnosis Encounter for anatomic survey- Primary 20 weeks gestation of state, incidental [facility] Diagnosis Encounter for follow-up ultrasound of anatomy- Primary [facility] Diagnosis 24 weeks gestation of - Primary state, incidental Encounter for supervision of other normal in second trimester [facility] [place] [facility] Diagnosis Encounter for follow-up ultrasound of anatomy- Primary 25 weeks gestation of state, incidental [facility] Diagnosis Spotting in - Primary Spotting complicating , unspecified as to episode of care or not applicable Bloody show and cramping in early Threatened , antepartum 27 weeks gestation of state, incidental [facility] [place] [facility]* Diagnosis 32 weeks gestation of - Primary state, incidental Encounter for supervision of other normal in third trimester Anemia complicating , third trimester [facility] [place] [facility]* Diagnosis Supervision of high risk in third trimester- Primary Unspecified high-risk 34 weeks gestation of state, incidental History of thyroid disease Personal history of other endocrine, metabolic, and immunity disorders Migraine with aura and without status migrainosus, not intractable Migraine with aura, without mention of intractable migraine without mention of status migrainosus Anemia complicating , third trimester Donley Hick's contraction Other threatened labor, unspecified as to episode of care [facility] [place] [facility] Diagnosis 36 weeks gestation of - Primary state, incidental Supervision of high risk in third trimester Unspecified high-risk Vaginal discharge Leukorrhea, not specified as infective [facility] [place] [facility]* Diagnosis Encounter for ultrasound to check growth- Primary Encounter for routine screening for malformation using ultrasonics Supervision of high risk in third trimester Unspecified high-risk History of thyroid disease Personal history of other endocrine, metabolic, and immunity disorders 37 weeks gestation of state, incidental [facility] [place] [facility]* Diagnosis Supervision of high risk in third trimester- Primary Unspecified high-risk 37 weeks gestation of state, incidental [facility] [place] [facility]* Diagnosis Supervision of high risk in third trimester- Primary Unspecified high-risk Anemia complicating , third trimester 38 weeks gestation of state, incidental [facility] [place] [facility]* Diagnosis Supervision of high risk in third trimester- Primary Unspecified high-risk 39 weeks gestation of state, incidental [facility] [place] [facility]* Diagnosis Strep throat- Primary Streptococcal sore throat Nausea and vomiting, unspecified vomiting type documented [facility] [place] [facility]* Diagnosis Onset Date Resolution Status 39 weeks gestation of acute Alcohol abuse acute Bipolar disorder acute Care and examination of lactating mother acute Multiparous acute Post traumatic stress disorder (PTSD) acute Spontaneous onset of labor a cute Spontaneous rupture of amniotic membranes acute (spontaneous vaginal delivery) [facility] Work Phone: Reason for referral (narrative)* Diagnostic Procedure Only (Routine) - Authorized Specialty Diagnoses / Procedures Referred By Contac t Referred To Contact [facility] Diagnoses 15 weeks gestation of Procedures OBSTETRIC ULTRASOUND WHI US PREG UTERUS AFTER 1ST TRIMEST GESTATION Maritza Richard APRN.CNM [address] [place] [address] [facility] [employer] [place] [address] Referral ID Status Reason Start Date Expiration Date Visits Requested Visits Authorized [id number] Authorized Auto-Generat ed Referral 04/21/2023 04/20/2024 1 1 [facility] for referral (narrative)* Diagnostic Procedure Only (Routine) - Authorized Specialty Diagnoses / Procedures Referred By Contac t Referred To Contact [facility] Diagnoses Encounter for follow-up ultrasound of anatomy Procedures OBSTETRIC ULTRASOUND WHI US PREG UTERUS AFTER 1ST TRIMEST GESTATION Dulce Shannon APRN.CNP [address] [place] [address] [facility] [address] [place] [address] Referral ID Status Reason Start Date Expiration Date Visits Requested Visits Authorized [id number] Authorized Auto-Generat ed Referral 06/14/2023 06/13/2024 1 1 [facility] for referral (narrative)* Diagnostic Procedure Only (Routine) - Authorized Specialty Diagnoses / Procedures Referred By Contac t Referred To Contact [facility] Diagnoses Supervision of high risk in third trimester History of thyroid disease Procedures OBSTETRIC ULTRASOUND WHI US PREG UTERUS AFTER 1ST TRIMEST GESTATION Lon Aranda APRN.CNP [address] [place] [address] [facility] [address] [place] [address] Referral ID Status Reason Start Date Expiration Date Visits Requested Visits Authorized [id number] Authorized Auto-Generat ed Referral 09/01/2023 08/31/2024 5 1 * Consult, Test, Treat (Routine) - Authorized Specialty Diagnoses / Procedures Referred By Contac t Referred To Contact Neurology Diagnoses Migraine with aura and without status migrainosus, not intractable Procedures CONSULT TO NEUROLOGY OFFICE/OUTPATIENT [facility] MDM 60-74 MINUTES Lon Aranda APRN.CNP [address] 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 Advance Directive(s) 10/05/2019 9:33 AM Advance Directive(s) 09/20/2018 9:32 PM Advance Directive(s) 08/01/2018 7:06 PM Advance Directive Response Recorded Date/ Time Living Will No October 06 2:07pm Power of Rooming House Keeper No October 06, 2023 2:07pm Hospital Course [...] section and content) DATE CREATED AUTHOR 10/03/2018 [facility] DATE CREATED AUTHOR AUTHOR'S ORGANIZ ATION 10/08/2019 [facility] DATE CREATED AUTHOR AUTHOR'S ORGANIZ ATION 2019 [facility] DATE CREATED AUTHOR AUTHOR'S ORGANIZ ATION 12/22/2019 [facility] DATE CREATED AUTHOR AUTHOR'S ORGANIZ ATION 10/08/2020 [facility] DATE CREATED AUTHOR AUTHOR'S ORGANIZ ATION 10/09/2020 [facility] DATE CREATED AUTHOR AUTHOR'S ORGANIZ ATION 10/13/2023 [facility] DATE CREATED AUTHOR AUTHOR'S ORGANIZ ATION 02/19/2024 [facility] Surgical History (unrecogniz ed section and content) [...] or prosecute any alcohol or drug abuse patient.[facility] the event this information is protected by the Federal Confidentiality of Alcohol and Drug Abuse Patient Records regulations: The Federal rules restrict any use of the information to criminally investigate or prosecute any alcohol or drug abuse patient.[facility] the event this information is protected by the Federal Confidentiality of Alcohol and Drug Abuse Patient Records regulations: The Federal rules restrict any use of the information to criminally investigate or prosecute any alcohol or drug abuse patient.[facility] the event this information is protected by the Federal Confidentiality of Alcohol and Drug Abuse Patient Records regulations: The Federal rules restrict any use of the information to criminally investigate or prosecute any alcohol or drug abuse patient.[facility] the event this information is protected by the Federal Confidentiality of Alcohol and Drug Abuse Patient Records regulations: The Federal rules restrict any use of the information to criminally investigate or prosecute any alcohol or drug abuse patient.[facility] the event this information is protected by the Federal Confidentiality of Alcohol and Drug Abuse Patient Records regulations: The Federal rules restrict any use of the information to criminally investigate or prosecute any alcohol or drug abuse patient.[facility] the event this information is protected by the Federal Confidentiality of Alcohol and Drug Abuse Patient Records regulations: The Federal rules restrict any use of the information to criminally investigate or prosecute any alcohol or drug abuse patient.[facility] the event this information is protected by the Federal Confidentiality of Alcohol and Drug Abuse Patient Records regulations: The Federal rules restrict any use of the information to criminally investigate or prosecute any alcohol or drug abuse patient.[facility] the event this information is protected by the Federal Confidentiality of Alcohol and Drug Abuse Patient Records regulations: The Federal rules restrict any use of the information to criminally investigate or prosecute any alcohol or drug abuse patient.[facility] the event this information is protected by the Federal Confidentiality of Alcohol and Drug Abuse Patient Records regulations: The Federal rules restrict any use of the information to criminally investigate or prosecute any alcohol or drug abuse patient.[facility]In the event this information is protected by the Federal Confidentiality of Alcohol and Drug Abuse Patient Records regulations: The Federal rules restrict any use of the information to criminally investigate or prosecute any alcohol or drug abuse patient.[facility]In the event this information is protected by the Federal Confidentiality of Alcohol and Drug Abuse Patient Records regulations: The Federal rules restrict any use of the information to criminally investigate or prosecute any alcohol or drug abuse patient.[facility]In the event this information is protected by the Federal Confidentiality of Alcohol and Drug Abuse Patient Records regulations: The Federal rules restrict any use of the information to criminally investigate or prosecute any alcohol or drug abuse patient.[facility]In the event this information is protected by the Federal Confidentiality of Alcohol and Drug Abuse Patient Records regulations: The Federal rules restrict any use of the information to criminally investigate or prosecute any alcohol or drug abuse patient.[facility]In the event this information is protected by the Federal Confidentiality of Alcohol and Drug Abuse Patient Records regulations: The Federal rules restrict any use of the information to criminally investigate or prosecute any alcohol or drug abuse patient.[facility] HospitalIn the event this information is protected by the Federal Confidentiality of Alcohol and Drug Abuse Patient Records regulations: The Federal rules restrict any use of the information to criminally investigate or prosecute any alcohol or drug abuse patient.[facility]In the event this information is protected by the Federal Confidentiality of Alcohol and Drug Abuse Patient Records regulations: The Federal rules restrict any use of the information to criminally investigate or prosecute any alcohol or drug abuse patient.[facility]In the event this information is protected by the Federal Confidentiality of Alcohol and Drug Abuse Patient Records regulations: The Federal rules restrict any use of the information to criminally investigate or prosecute any alcohol or drug abuse patient.[facility] HospitalIn the event this information is protected by the Federal Confidentiality of Alcohol and Drug Abuse Patient Records regulations: The Federal rules restrict any use of the information to criminally investigate or prosecute any alcohol or drug abuse patient.[facility] HospitalIn the event this information is protected by the Federal Confidentiality of Alcohol and Drug Abuse Patient Records regulations: The Federal rules restrict any use of the information to criminally investigate or prosecute any alcohol or drug abuse patient.[facility] HospitalIn the event this information is protected by the Federal Confidentiality of Alcohol and Drug Abuse Patient Records regulations: The Federal rules restrict any use of the information to criminally investigate or prosecute any alcohol or drug abuse patient.[facility] HospitalIn the event this information is protected by the Federal Confidentiality of Alcohol and Drug Abuse Patient Records regulations: The Federal rules restrict any use of the information to criminally investigate or prosecute any alcohol or drug abuse patient.[facility] HospitalIn the event this information is protected by the Federal Confidentiality of Alcohol and Drug Abuse Patient Records regulations: The Federal rules restrict any use of the information to criminally investigate or prosecute any alcohol or drug abuse patient.[facility]In the event this information is protected by the Federal Confidentiality of Alcohol and Drug Abuse Patient Records regulations: The Federal rules restrict any use of the information to criminally investigate or prosecute any alcohol or drug abuse patient.[facility]In the event this information is protected by the Federal Confidentiality of Alcohol and Drug Abuse Patient Records regulations: The Federal rules restrict any use of the information to criminally investigate or prosecute any alcohol or drug abuse patient.[facility]In the event this information is protected by the Federal Confidentiality of Alcohol and Drug Abuse Patient Records regulations: The Federal rules restrict any use of the information to criminally investigate or prosecute any alcohol or drug abuse patient.[facility]In the event this information is protected by the Federal Confidentiality of Alcohol and Drug Abuse Patient Records regulations: The Federal rules restrict any use of the information to criminally investigate or prosecute any alcohol or drug abuse patient.[facility] HospitalIn the event this information is protected by the Federal Confidentiality of Alcohol and Drug Abuse Patient Records regulations: The Federal rules restrict any use of the information to criminally investigate or prosecute any alcohol or drug abuse patient.[facility] HospitalIn the event this information is protected by the Federal Confidentiality of Alcohol and Drug Abuse Patient Records regulations: The Federal rules restrict any use of the information to criminally investigate or prosecute any alcohol or drug abuse patient.[facility] HospitalIn the event this information is protected by the Federal Confidentiality of Alcohol and Drug Abuse Patient Records regulations: The Federal rules restrict any use of the information to criminally investigate or prosecute any alcohol or drug abuse patient.[facility]In the event this information is protected by the Federal Confidentiality of Alcohol and Drug Abuse Patient Records regulations: The Federal rules restrict any use of the information to criminally investigate or prosecute any alcohol or drug abuse patient.[facility]In the event this information is protected by the Federal Confidentiality of Alcohol and Drug Abuse Patient Records regulations: The Federal rules restrict any use of the information to criminally investigate or prosecute any alcohol or drug abuse patient.[facility] Reason for Visit (unrecogniz ed section and content) Reason Comments Menstrual Problem irregular menses Reason Comments Care Reason Comments Abnormal Pap 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 / Procedures Referred By Obdulia t Referred To Contact [facility] Diagnoses Encounter to determine viability of , single or unspecified fetus Procedures OBSTETRIC ULTRASOUND WHI US PREG UTERUS AFTER 1ST TRIMEST GESTATION Maritza Richard APRN.CNM [address] [place] [address] [facility] [employer] [place] [address] Referral ID Status Reason Start Date Expiration Date V isits Requested Visits Authorized [id number] Closed Auto-Generate d Referral 02/18/2023 02/18/2024 1 1 Reason Onset Date Comments Care 03/25/2023 Reason Comments US Specialty Diagnoses / Procedures Referred By Contac t Referred To Contact [facility] Diagnoses 8 weeks gestation of Procedures NUCHAL TRANSLUCENCY WHI US NUCHAL TRANSLUCENCY 1ST GESTATION Maritza Richard APRN.CNM [address] [place] [address] [facility] [address] [place] [address] Referral ID Status Reason Start Date Expiration Date V isits Requested Visits Authorized [id number] Closed Auto-Generate d Referral 02/18/2023 02/18/2024 1 1 Reason Onset Date Comments Care 04/21/2023 Reason Onset Date Comments Care 05/26/2023 Specialty Diagnoses / Procedures Referred By Contac t Referred To Contact [facility] Diagnoses 15 weeks gestation of Procedures OBSTETRIC ULTRASOUND WHI US PREG UTERUS AFTER 1ST TRIMEST GESTATION Maritza Richard MS SQL SERVER DEVELOPER.CNM [address] [place] [address] [facility] [address] [place] [address] Referral ID Status Reason Start Date Expiration Date V isits Requested Visits Authorized [id number] Closed Auto-Generate d Referral 04/21/2023 04/20/2024 1 1 Reason Comments Breast Pump Reason Comments Orders Reason Onset Date Comments Care 06/23/2023 Specialty Diagnoses / Procedures Referred By Contac t Referred To Contact [facility] Diagnoses Encounter for follow-up ultrasound of anatomy Procedures OBSTETRIC ULTRASOUND WHI US PREG UTERUS AFTER 1ST TRIMEST GESTATION Dulce Shannon, MS SQL SERVER DEVELOPER.WORLD GEOGRAPHY TEACHER [address] [place] [address] [facility] [address] [place] [address] Referral ID Status Reason Start Date Expiration Date V isits Requested Visits Authorized [id number] Closed Auto-Generate d Referral 06/14/2023 06/13/2024 1 1 Reason Comments OB - spotting Reason Onset Date Comments Care 07/12/2023 Reason Onset Date Comments Care 08/18/2023 Reason Onset Date Comments Care 09/01/2023 Reason Comments Results Reason Onset Date Comments Care 09/13/2023 Specialty Diagnoses / Procedures Referred By Contac t Referred To Contact [facility] Diagnoses Supervision of high risk in third trimester History of thyroid disease Procedures OBSTETRIC ULTRASOUND WHI US PREG UTERUS AFTER 1ST TRIMEST GESTATION Lon Aranda, MS SQL SERVER DEVELOPER.WORLD GEOGRAPHY TEACHER [address] [place] [address] [facility] [address] [place] [address] Referral ID Status Reason Start Date Expiration Date V isits Requested Visits Authorized [id number] Closed Auto-Generate d Referral 09/01/2023 08/31/2024 5 [...] Care Teams (unrecognized sec tion and content) Mica Plate Layer Hand Relationship Specialty Start Date End Date [facility] Provider Psychiatry 10/05/19 Mica Plate Layer Hand Relationship Specialty Start Date End Date [facility] Provider Psychiatry 10/05/19 Mica Plate Layer Hand Relationship Specialty Start Date End Date [facility] Provider Psychiatry 10/05/19 Mica Plate Layer Hand Relationship Specialty Start Date End Date [facility] Provider Psychiatry 10/05/19 Mica Plate Layer Hand Relationship Specialty Start Date End Date [facility] Psychiatry 10/05/19 Mica Plate Layer Hand Relationship Specialty Start Date End Date [facility] Psychiatry 10/05/19 Mica Plate Layer Hand Relationship Specialty Start Date End Date [facility] Provider Psychiatry 10/05/19 Mica Plate Layer Hand Relationship Specialty Start Date End Date [facility] Psychiatry 10/05/19 Mica Plate Layer Hand Relationship Specialty Start Date End Date [facility] Psychiatry 10/05/19 Mica Plate Layer Hand Relationship Specialty Start Date End Date [facility] Provider Psychiatry 10/05/19 Mica Plate Layer Hand Relationship Specialty Start Date End Date [facility] Provider Psychiatry 10/05/19 Mica Plate Layer Hand Relationship Specialty Start Date End Date [facility] Psychiatry 10/05/19 [place] Hand Relationship Specialty Start Date End Date [facility] Psychiatry 10/05/19 [place] Layer Hand Relationship Specialty Start Date End Date [facility] Psychiatry 10/05/19 [place] Layer Hand Relationship Specialty Start Date End Date [facility] Psychiatry 10/05/19 [place] Layer Hand Relationship Specialty Start Date End Date [facility] Psychiatry 10/05/19 Mica Plate Layer Hand Relationship Specialty Start Date End Date [facility] Psychiatry 10/05/19 [...] BE BASED ON THE PRIMARY CLINICAL RECORDS. [facility] provides no warranty or guarantee of the accuracy or completeness of information in this document.
[2025-07-28 08:34] LABS: Squamous Epithelial Cells - UA 0-5 SEEN /hpf (5-10)
[2025-07-28 08:56] LABS: Internal QC Validated? YES +Cl - CLEAR BKGD; Pregnancy, Urine Negative Negative; Record Kit Lot#,Urine Preg 980607
[2025-07-28] MEDS: Pantoprazole Sodium 40 MG in 0.9% Normal Saline (100mL MB+) 100 ML 300 MG IV (08:59)
[2025-07-28 09:49] LABS: Barbiturate Urine NEGATIVE (< 200 ng/mL); Benzodiazepine Urine NEGATIVE (< 200 ng/mL); PCP Urine NEGATIVE (< 25 ng/mL); THC Urine PRESUMPTIVE POSITIVE (< 50 ng/mL)
--- OUTSIDE RECORDS SUMMARY | 2025-07-28 09:56 | XMS RPT_ITS | CCD ---
Author Organization [facility] Care Team Providers Care Bolting Machine Operator Name Role Phone Unavailable Primary Care Provider [...] Comment on above: Take 1 capsule by [facility] two times a day for 10 days. aspirin 81 mg delayed release oral tablet (20 sources) Platelet Aggregation Inhibitor, Nonsteroidal Anti-inflammatory Drug Start: 02-18-2023 take 2 tablets by mouth once daily aspirin, enteric coated (ASPIRIN, ENTERIC COATED) 81 mg EC tablet Take 2 tablets by mouth once daily. 60 tablet 5 02/18/2023 Active Comment on above: Take 2 tablets by [facility] once daily. doxylamine succinate [...] Comment on above: Take 1 tablet by [facility] daily at bedtime. DULoxetine 30 mg delayed release oral capsule (1 source) Serotonin and Norepinephrine Reuptake Inhibitor Start: take 1 capsule by mouth once daily DULoxetine (CYMBALTA) 30 MG extended release capsule Take 1 capsule by mouth daily 30 capsule 0 2020 Active Start: 2020 take 1 capsule by [facility] once daily DULoxetine (CYMBALTA) [...] on above: Take 1 capsule by [facility] once daily. metroNIDAZOLE 500 mg [...] after taking medication to eat or drink. jn97-vjuq ps-folate 1 29 mg iron- 1 mg chew (20 sources) Start: 02-19-20 23 jz03-jmhc ps-folate 1 29 mg iron- 1 mg chew Take 1 tablet by mouth once daily. 30 tablet 5 02/18/2023 Active Comment on above: Take 1 tablet by marine [facility] once daily. Vit,Hzew18-Qcvo-Iexls (Prenatabs Fa) 1 TABLET tablet (1 source) Start: 05-29-20 18 take 1 tablet by mouth once daily Vit,Vhky05-Oeoe-Q olic (Prenatabs Fa) 1 TABLET tablet Active [...] ity CNCOon 02-17-2024 CNCO Letter Text Normal [facility] CNPNon 02-15-2024 CNPN Telephone (WHQ) ERICA TORO ([id number]) 1995 F Date Time Provider Department 02/15/24 CARRIE FERNANDEZ WHQ During your visit today, we recorded the following information about you: Daquan Nenita 02/17/2024 11:54 AM Addendum 1st attempt to contact the patient to schedule colposcopy. Unable to reach patient, phone line unable to take calls at this time. Will attempt at later time. Nenita [facility] Nenita Pena 02/17/2024 11:55 AM Signed 2nd attempt to contact the patient to schedule colposcopy. [facility] sent 01/10- not read Unable to leave [facility] not in service. A letter will be mailed to home. Nenita [facility] Allergies As of Date: 02/15/2024 (No Known Allergies) Date Reviewed: 01/18/2024 Reviewed by: Lakeisha Fortune APRN.GARNETT ROOM WORKER - Fully Assessed Prescriptions as of 02/17/2024 [...] tablet by mouth daily at bedtime. - dn28-xjfd ps-folate 1 29 mg iron- 1 mg [...] Encounter Status:Closed by NENITA PENA on 02/17/24 [facility] CNOVon 01-18-2024 CNOV Office Visit (WALKWA) ERICA TORO ([id number]) 1995 F Date Time Provider Department 01/18/24 8:15 AM LAKEISHA FORTUNE During your visit today, we recorded the following information about you: Temperature Pulse Respiration Blood pressure 98.6 degrees 97/minute 16/minute 125/86 Weight 70 kg Lakeisha Fortune APRN.GARNETT ROOM WORKER 01/18/2024 8:44 AM Addendum Express Care Visit [...] bedtime. (Patient not taking: Reported on 11/24/2023) lb25-jajd ps-folate 1 29 mg iron- 1 mg [...] tenderness or frontal sinus tenderness. Mouth/Throat: Lips: [place]. No lesions. Mouth: Mucous membranes are moist. [...] OTC co (more content not included)... Normal [facility] STREP A MOLECULAR (POC)on Procedural Control Valid [facility] Strep A (POCT) Positive Abnormal Negative [facility] ([id number]) 1995 F Date Time Provider Department 01/03/24 [...] 3rd attempt and patient has not read [employer] message. Unable to leave message because voicemail is not set up. Letter sent via [employer] and mail. Anahy Wood RN Allergies As [...] tablet by mouth daily at bedtime. - xr20-pjsw ps-folate 1 29 mg iron- 1 mg [...] Status:Closed by CHERELLE AN on 01/03/[address] [facility] CNOVon 12-28-2023 CNOV Office Visit (OBGYWM) ERICA TORO ([id number]) 1995 F Date Time Provider Department 12/28/23 11:40 AM KARI RAMOS During your visit today, we recorded the following information about you: Blood pressure Weight Last Period 100/62 70.8 kg 12/20/23 Kari Ramos MD 12/28/2023 12:18 PM Signed Flight Operations Dispatch Clerk offered: Patient declines. Erica is a 28 [...] positive occurs test: negative Nexplanon lot #: [id number] Exp date: 09/23/25 [facility]: [id number] UNIVERSAL PROTOCOL / SAFETY CHECKLIST Procedure to [...] days to prevent Referring Provider: GRACY RIVAS [[id number]] Allergies As of Date: 12/28/2023 (No Known Allergies) Date Reviewed: 12/28/2023 Reviewed by: Priyanka Doe LPN - Fully Assessed Reason for Visit: nexplanon insertion [Other] Primary Visit Diagnosis:Insertion of implantable subdermal contraceptive [Z30.017] Order(s):NEXPLANON INSERTION [[id number]] Order #: [id number] [] etonogestrel subdermal implant 68 mg (NEXPLANON)Disp: Rfl: etonogestrel (NEXPLANON) subdermal implant 68 mg1 Each by SUBDERMAL route as directed.Disp: 1 EachRfl: 0 UA DIP,URINE HCG (POC) [[id number]] Order #: [id number]. #:[id number] Prescriptions as of 12/28/2023 - etonogestrel (NEXPLANON) subdermal implant 68 mg 1 Each by SUBDERMAL route as directed. - Lactobacillus acidophilus (FLORAJEN ACIDOPHILUS) 20 billion cell cap Take 1 capsule by mouth once daily. - doxylamine (UNISOM, DOXYLAMINE,) 25 mg tab Take 1 tablet by mouth daily at bedtime. - xw51-dlip ps-folate 1 29 mg iron- 1 mg [...] of pre (more content not included)... Normal [facility] CNCOon 12-06-2023 CNCO Letter Text Normal [facility] CNPNon 12-06-2023 CNPN Telephone (OBGYWM) ERICA TORO ([id number]) 1995 F Date Time Provider Department 12/06/23 [...] for patient is currently not accepting calls. Trellise message and letter sent. Appointment note for [...] tablet by mouth daily at bedtime. - zh69-bodk ps-folate 1 29 mg iron- 1 mg [...] Status:Closed by MARII GONSALES on 12/21/[address] [facility] HPV W/GENOTYPE THIN PREPon 0 11-24-2023 HPV 16 Ag Ql (Unsp spec) Negative Normal Negative for HPV DNA high risk type 16 by PCR [facility] Comment on above: Order Comment: Speci men Type: FLUID SPECIMEN Ordering Facility: [facility] Address: [address] [place] [address] Performed By: #### H PVHRT, [id number] #### [facility] CLIA [id number] [address] [place] [address] [place] HPV 18 Ag Ql (Unsp spec) Negative Normal Negative for HPV DNA high risk type 18 by PCR [facility] Comment on above: Order Comment: Speci men Type: FLUID SPECIMEN Ordering Facility: [facility] Address: [address] [place] [address] Performed By: #### H PVHRT, [id number] #### [facility] CLIA [id number] [address] [place] [address] [place] HPV 31+33+35+39+45+51+52+56 +58+59+66+68 DNA ODILON+probe Ql (Cvx) Positive for one or more of the following HPV DNA high risk types:31,33,35,39,45 ,51,52,56,58,59,66,6 8 by PCR Abnormal Negative for HPV DNA high risk types: 31,33,35,39,45,5 1,52,56,58,59,66 ,[address] [facility] Comment on above: Order Comment: Speci men Type: FLUID SPECIMEN Ordering Facility: [facility] Address: [address] [place] [address] Performed By: #### H PVHRT, [id number] #### [facility] CLIA [id number] [address] [place] [address] [place] PAP TESTon 11-24-2023 ADEQUACY Satisfactory for interpretation Normal [facility] Comment on above: Order Comment: Speci men Type: FLUID SPECIMEN Ordering Facility: [facility] Address: [address] [place] [address] Performed By: #### H PVHRT, [id number] #### [facility] CLIA [id number] [address] [place] [address] [place] CASE REPORT Normal [facility] Comment on above: Order Comment: Speci men Type: FLUID SPECIMEN Ordering Facility: [facility] Address: [address] [place] [address] Result Comment: Gyne cologic Cytology Report Case: [id number] Authorizing Provider: Gracy Rivas, Collected: 11/24/2023 04:46 PM Ordering Location: OB/Gynecology Received: 11/25/2023 08:50 AM First Screen: Cathy Cosby, CT, ASCP Pathologist: Kisha Fox MD Specimen: Pap Test, ThinPrep, Cervix Performed By: #### H PVHRT, [id number] #### [facility] CLIA [id number] [address] [place] [address] [place] CLINICAL HISTORY, CYTOLOGY, 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 Normal [facility] Comment on above: Order Comment: Speci men Type: FLUID SPECIMEN Ordering Facility: [facility] Address: [address] [place] [address] Performed By: #### H PVHRT, [id number] #### [facility] CLIA [id number] [address] [place] [address] [place] DIAGNOSIS COMMENT Suggest colposcopy/biopsy as clinically indicated. Results from the ASCUS/LSIL triage study found that interpretations of ASC-H were associated with a higher risk of underlying HSIL (JAMIE 2 or worse; 30-40%). Normal [facility] Comment on above: Order Comment: Speci men Type: FLUID SPECIMEN Ordering Facility: [facility] Address: [address] [place] [address] Performed By: #### H PVHRT, [id number] #### [facility] CLIA [id number] [address] [place] [address] [place] FINAL PERFORMING LAB Normal [facility] Comment on above: Order Comment: Speci men Type: FLUID SPECIMEN Ordering Facility: [facility] Address: [address] [place] [address] Result Comment: Tech nical component, corridor redevelopment manager screening performed at [facility], [address] [place], [place] [id number] CLIA# [id number] Diagnostic interpretation performed at [facility], [address] [place] [address] CLIA# [id number] Inshore Undersea Warfare Officer: Russell Davila M.D. Performed By: #### H PVHRT, [id number] #### [facility] CLIA [id number] [address] [place], [place] [address] [place] HPV REFLEX Yes HPV Normal [facility] Comment on above: Order Comment: Speci men Type: FLUID SPECIMEN Ordering Facility: [facility] Address: [address] [place] [address] Performed By: #### H PVHRT, [id number] #### [facility] CLIA [id number] [address] [place] [address] [place] INTERPRETATION, CYTOLOGY, 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 Abnormal [facility] Comment on above: Order Comment: Speci men Type: FLUID SPECIMEN Ordering Facility: [facility] Address: [address] [place] [address] Result Comment: Atyp ical squamous cells cannot exclude high grade squamous intraepithelial lesion (ASC-H); see comment. Performed By: #### H PVHRT, [id number] #### [facility] CLIA [id number] [address] [place] [address] [place] PAP DISCLAIMER COMMENT The Pap Smear is a screening test for cervical cancer. False negative results occur with all screening tests, emphasizing the need for rescreening at recommended intervals, and clinical correlation. Normal [facility] Comment on above: Order Comment: Speci men Type: FLUID SPECIMEN Ordering Facility: [facility] Address: [address] [place] [address] Performed By: #### H PVHRT, [id number] #### [facility] CLIA [id number] [address] [place] [address] [place] PAP GENERAL CATEGORIZATION Epithelial Cell Abnormality Normal [facility] Comment on above: Order Comment: Speci men Type: FLUID SPECIMEN Ordering Facility: [facility] Address: [address] [place] [address] Performed By: #### H PVHRT, [id number] #### [facility] CLIA [id number] [address] [place] [address] [place] Absolute lymphocyte countOrd ered By: Cortney Cash on 10-06-2023 Lymphocytes Auto (Unsp spec) [#/Vol] 1.20 10*3/uL 0.83-4.51 [facility] Basophil percentageOrdered B y: Cortney Cash on 10-06-2023 Basophils/100 WBC (Bld) 0.3 % 0-1 [facility] Eosinophils/100 WBC (Bld) 0.5 % 0-5 [facility] Neutrophils (Bld) [#/Vol] 7.8 10*3/uL 2.0-7.7 [facility] Neutrophils/100 WBC (Bld) 81.4 % 47-70 [facility] WBC (Bld) [#/Vol] 9.6 10*3/uL 4.4-11.0 [facility] Blood erythrocytes count (nu mber/volume)Ordered By: Cortney Cash on 10-06-2023 RBC (Bld) [#/Vol] 5.07 10*6/uL 4.2-5.[address] [facility] Blood hemoglobin measurement (mass/volume)Ordered By: Cortney Cash on 10-06-2023 Hemoglobin (Bld) [Mass/Vol] 11.4 g/dL 12.0-15.0 [facility] Blood lymphocytes/100 leukoc ytesOrdered By: Cortney Cash on 10-06-2023 Lymphocytes/100 WBC (Bld) 12.5 % 19-41 [facility] Blood monocytes/100 leukocyt esOrdered By: Cortney Cash on 10-06-2023 Monocytes/100 WBC (Bld) 5.0 % 0-10 [facility] Blood platelet mean volumeOr dered By: Cortney Cash on 10-06-2023 Platelet mean volume (Bld) [Entitic vol] 11.8 fL 6.2-12.0 [facility] CBC W/Diff, Automatedon 09-24 Absolute Lymph 1.20 X10 3/uL Normal 0.83-4.51 [facility] Comment on above: Performed By: #### B TS, L100.0100 #### [facility] [place], [address] Absolute Neut 7.8 X10 3/uL High 2.0-7.7 [facility] Comment on above: Performed By: #### Donny DELUNA, L100.0100 #### [facility] [address] [place], [address] Basophils/100 WBC (Bld) 0.3 % Normal 0-1 [facility] Comment on above: Performed By: #### Donny DELUNA, L100.0100 #### [facility] [address] [place], [address] Eosinophils/100 WBC (Bld) 0.5 % Normal 0-5 [facility] Comment on above: Performed By: #### Donny DELUNA, L100.0100 #### [facility] [address] [place], [address] Erythrocyte distribution width (RBC) [Ratio] 17.4 % High 11.6-14.6 [facility] Comment on above: Performed By: #### Donny DELUNA, L100.0100 #### [facility] [address] [place], [address] Hematocrit (Bld) [Volume fraction] 37.4 % Normal 37-47 [facility] Comment on above: Performed By: #### Donny DELUNA, L100.0100 #### [facility] [address] [place], [address] Hemoglobin (Bld) [Mass/Vol] 11.4 g/dL Low 12.0-15.0 [facility] Comment on above: Performed By: #### Donny DELUNA, L100.0100 #### [facility] [address] [place], [address] IG% 0.300 Normal 0.0-0.9 [facility] Comment on above: Result Comment: IG% - Immature Granulocytes (promyelocytes, myelocytes and metamyelocytes) > 1% indicates that a LEFT SHIFT is Present. Performed By: #### Donny DELUNA, L100.0100 #### [facility] [address] [place], [address] Lymphocytes/100 WBC (Bld) 12.5 % Low 19-41 [facility] Comment on above: Performed By: #### Donny DELUNA, L100.0100 #### [facility] [address] [place], [address] MCH (RBC) [Entitic mass] 22.5 pg Low 27.0-32.0 [facility] Comment on above: Performed By: #### Donny DELUNA, L100.0100 #### [facility] [address] [place], [address] MCHC (RBC) [Mass/Vol] 30.5 g/dL Low 32-36 [facility] Comment on above: Performed By: #### Donny DELUNA, L100.0100 #### [facility] [address] [place], [address] MCV (RBC) [Entitic vol] 73.8 fL Low 81-99 [facility] Comment on above: Performed By: #### Donny DELUNA, L100.0100 #### [facility] [address] [place], [address] Monocytes/100 WBC (Bld) 5.0 % Normal 0-[address] [facility] Comment on above: Performed By: #### Donny DELUNA, L100.0100 #### [facility] [address] [place], [address] Neutrophils/100 WBC (Bld) 81.4 % High 47-70 [facility] Comment on above: Performed By: #### Donny DELUNA, L100.0100 #### [facility] [address] [place], [address] Nucleated RBC (Bld) [#/Vol] 0 10*3/uL Normal 0-5 [facility] Comment on above: Performed By: #### Donny DELUNA, L100.0100 #### [facility] [address] [place], [address] Platelet mean volume (Bld) [Entitic vol] 11.8 fL Normal 6.2-12.0 [facility] Comment on above: Performed By: #### Donny DELUNA, L100.0100 #### [facility] [address] [place], [address] Platelets (Bld) [#/Vol] 180 10*3/uL Normal 150-450 [facility] Comment on above: Performed By: #### Donny DELUNA, L100.0100 #### [facility] [address] [place], [address] RBC (Bld) [#/Vol] 5.07 10*6/uL Normal 4.2-5.[address] [facility] Comment on above: Performed By: #### Donny DELUNA, L100.0100 #### [facility] [address] [place], [address] RDW SD 45.9 fl High 35.1-43.9 [facility] Comment on above: Performed By: ###Toby DELUNA, L100.0100 #### [facility] [address] [place], [address] WBC (Bld) [#/Vol] 9.6 10*3/uL Normal 4.4-11.0 [facility] Comment on above: Performed By: #### Donny DELUNA, L100.0100 #### [facility] [address] [place], [address] Cara 10-06-2023 MARCOS Telephone (OBGYWM) CORTEZERICA Joaquin ([id number]) 1995 F Date Time Provider Department 10/06/23 [...] was 3.5/80%/-2. [facility] and [facility]. EMILY Zepeda Danielle, [...] tablet by mouth daily at bedtime. - la33-llpk ps-folate 1 29 mg iron- 1 mg [...] Encounter Status:Closed by MARII GONSALES on 10/06/23 [facility] Determination of erythrocyte mean corpuscular volume (MCV)Ordered By: Cortney Cash on 10-06-2023 MCV (RBC) [Entitic vol] 73.8 fL 81-99 [facility] H AND P Exam - OB/GYNon 09-24 H&P Exam - BEHAVIORAL SCIENCE CHAIR [facility] Medical Records Department [address] [place] [address] H P Exam - BEHAVIORAL SCIENCE CHAIR 10/06/23 1643 MR#: [id number] Acct: [id number] Name: ERIAC TORO Rep #: [id number] : 1995 27 From: Cortney Cash CNM PCP: Care Physician,No Primary Status:ADM IN Location: [id number] HPI - General General Date of Admission: [...] movement Cardio (more content not included)... Normal [facility] Hematocrit Auto (Bld) [Volum e fraction]Ordered By: Cortney Cash on 10-06-2023 Hematocrit (Bld) [Volume fraction] 37.4 % 37-47 [facility] L509.8000on 10-06-2023 Syphilis Abs Non-Reactive Normal [facility] Comment on above: Performed By: #### L 509.8000 #### [facility] [address] [facility] [place], [address] Laboratory - Hematology and Cell countsOrdered By: Cortney Cahs on 10-06-2023 Erythrocyte distribution width (RBC) [Entitic vol] 45.9 fL 35.1-43.9 [facility] Erythrocyte distribution width (RBC) [Ratio] 17.4 % 11.6-14.6 [facility] Immature granulocytes/100 WBC (Bld) 0.300 % 0.0-0.9 [facility] Comment on above: IG% - Immature Granu locytes (promyelocytes, myelocytes and metamyelocytes) > 1% indicates that a LEFT SHIFT is Present. MCH (RBC) [Entitic mass] 22.5 pg 27.0-32.0 [facility] Nucleated RBC/100 WBC (Bld) [Ratio] 0 % 0-5 [facility] MCHC Auto (RBC) [Mass/Vol]Or dered By: Cortney Cash on 10-06-2023 MCHC (RBC) [Mass/Vol] 30.5 g/dL 32-36 [facility] Operative Reporton 3 Operative Report [facility] Medical Records Department [address] [place] [address] Operative Report 10/06/23 1633 MR#: [id number] Acct: [id number] Name: ERICA TORO Rep #: [id number] : 1995 27 From: Cortney Cash CNDomonique PCP: Care Physician,No Primary Status:ADM IN Location: [id number] Assessment Plan (1) (spontaneous vaginal delivery): (2) [...] Cash; No Primary Care Physician Signed Normal [facility] Platelets bldOrdered By: Leana Cash on 10-06-2023 Platelets (Bld) [#/Vol] 180 10*3/uL 150-450 [facility] Serum Treponema species anti body detectionOrdered By: Cortney Cash on 10-06-2023 Treponema sp Ab Ql (S) Non-Reactive [facility] Type AND Screenon 10-06-2023 ABO and Rh group Nom (Bld) Blood group A Rh(D) positive Normal [facility] Comment on above: Order Comment: Labor Performed By: #### B TS, L100.0100 #### [facility] [address] [place], [address] URINE OB DIP B/Oon 3 Glucose Ql (U) Negative Neg mg/dL [facility] Protein.monoclonal (U) [Mass/Vol] Negative Neg mg/dL [facility] URINE OB DIP B/Oon 3 Glucose Ql (U) Negative Neg mg/dL [facility] Protein.monoclonal (U) [Mass/Vol] Negative Neg mg/dL [facility] OBSTETRIC ULTRASOUND WHIon 1 11-20-2022 [facility] URINE OB DIP B/Oon 3 Glucose Ql (U) Negative Neg mg/dL [facility] Protein.monoclonal (U) [Mass/Vol] Negative Neg mg/dL [facility] CNPSlime 09-14-2023 MARCOS Telephone (OBGYWM) ERICA TORO ([id number]) 1995 F Date Time Provider Department 09/14/23 [...] Allergies) Date Reviewed: 09/13/2023 Reviewed by: Pat Nugyễn MA - Fully Assessed Reason for Visit: [...] tablet by mouth daily at bedtime. - hg40-oelc ps-folate 1 29 mg iron- 1 mg [...] by KARI BALDERAS RN on 09/14/[address] [facility] BACTERIAL VAGINOSIS NAATon 1 11-13-2022 Lactobacillus crispatus+gasseri+jense reema + Gardnerella vaginalis + Atopobium vaginae rRNA ODILON+probe Ql (Vag fld) Positive Abnormal Negative for bacterial vaginosis [facility] Comment on above: Order Comment: Speci men Type: SWABOrdering Facility: [facility] Address: [address] [place] [address] Performed By: #### B VAMP, CVTV ####[facility] [id number] [place] [address] [place] FRANCESCO/TRICHOMONAS NAATon 1 11-13-2022 C. glabrata RNA ODILON+probe Ql (Vag fld) Negative Normal Negative for Francesco glabrata [facility] Comment on above: Order Comment: Speci men Type: SWABOrdering Facility: [facility] Address: [address] [place] [address] Performed By: #### B VAMP, CVTV ####[facility] [id number] [place] [address] [place] Francesco sp DNA ODILON+probe Ql (Vag fld) Positive Abnormal Negative for Francesco species [facility] Comment on above: Order Comment: Speci men Type: SWABOrdering Facility: [facility] Address: [address] [place] [address] Performed By: #### B VAMP, CVTV ####[facility] [id number] [address] [place] T. vaginalis DNA ODILON+probe Ql (Unsp spec) Negative Normal Negative for Trichomonas vaginalis by amplification [facility] Hospital Comment on above: Order Comment: Speci men Type: SWABOrdering Facility: [facility] Address: [address] [place] [address] Performed By: #### B VAMP, CVTV ####[facility] LABIA [id number] [place] [address] [place] ROUTINE, GROUP B ST REP PCRon 09-13-2023 ROUTINE, GROUP B STREP PCR GROUP B STREP PCR: Negative for Group B Streptococcus by PCR. Normal [facility] Comment on above: Performed By: #### G BPCR ####[facility] LABCLIA [id number] [place] [address] [place] URINE OB DIP B/Oon 3 Glucose Ql (U) Negative Neg mg/dL [facility] Protein.monoclonal (U) [Mass/Vol] Negative Neg mg/dL [facility] CNPNon 09-02-2023 CNPN Telephone (OBGYWM) ERICA TORO ([id number]) 1995 F Date Time Provider Department 09/02/23 [...] tablet by mouth daily at bedtime. - [id number] ps-folate 1 29 mg iron- 1 mg [...] by ANAHY WOOD RN on 09/02/[address] [facility] CBC panel Auto (Bld)on 09-01 Erythrocyte distribution width (RBC) [Ratio] 17.0 % High 11.5-15.[address] [facility] Comment on above: Order Comment: Speci men Type: BLOOD SPECIMENOrdering Facility: [facility] Address: [address] [place] [address] Performed By: #### 5 8410-2 ####[facility]ENTERSANDYCandelario [id number] [address] [place] Hematocrit (Bld) [Volume fraction] 34.6 % Low 36.0-46.[address] [facility] Comment on above: Order Comment: Speci men Type: BLOOD SPECIMENOrdering Facility: [facility] Address: [address] [place] [address] Performed By: #### 5 8410-2 ####[facility] [id number] [place] [address] [place] Hemoglobin (Bld) [Mass/Vol] 10.5 g/dL Low 11.5-15.[address] [facility] Comment on above: Order Comment: Speci men Type: BLOOD SPECIMENOrdering Facility: [facility] Address: [address] [place] [address] Performed By: #### 5 8410-2 ####[facility] HOSPITALKRISTI [id number] [place] [address] [place] MCH (RBC) [Entitic mass] 22.9 pg Low 26.0-34.[address] [facility] Comment on above: Order Comment: Speci men Type: BLOOD SPECIMENOrdering Facility: [facility] Address: [address] [place] [address] Performed By: #### 5 8410-2 ####[facility] [id number] [place] [address] [place] MCHC (RBC) [Mass/Vol] 30.3 g/dL Low 30.5-36.0 [facility] Comment on above: Order Comment: Speci men Type: BLOOD SPECIMENOrdering Facility: [facility] Address: [address] [place] [address] Performed By: #### 5 8410-2 ####[facility]ENTERNCLIA [id number] [place] [address] [place] MCV (RBC) [Entitic vol] 75.5 fL Low 80.0-100.0 [facility] Comment on above: Order Comment: Speci men Type: BLOOD SPECIMENOrdering Facility: [facility] Address: [address] [place] [address] Performed By: #### 5 8410-2 ####[facility] [id number] [place] [address] [place] Nucleated RBC (Bld) [#/Vol] 10*3/uL Normal <0.[address] [facility] Comment on above: Order Comment: Speci men Type: BLOOD SPECIMENOrdering Facility: [facility] Address: [address] [place] [address] Performed By: #### 5 8410-2 ####[facility] PARMINDERNCKRISTIA [id number] [place] [address] [place] Platelet mean volume (Bld) [Entitic vol] 11.6 fL Normal 9.0-12.[address] [facility] Comment on above: Order Comment: Speci men Type: BLOOD SPECIMENOrdering Facility: [facility] Address: [address] [place] [address] Performed By: #### 5 8410-2 ####[facility]ENTERNCCandelario [id number] [place] [address] [place] Platelets (Bld) [#/Vol] 178 10*3/uL Normal 150-[address] [facility] Comment on above: Order Comment: Speci men Type: BLOOD SPECIMENOrdering Facility: [facility] Address: [address] [place] [address] Performed By: #### 5 8410-2 ####[facility]ENTERNCLIA [id number] [place] [address] [place] RBC (Bld) [#/Vol] 4.58 10*6/uL Normal 3.90-5.20 [facility] Comment on above: Order Comment: Speci men Type: BLOOD SPECIMENOrdering Facility: [facility] Address: [address] [place] [address] Performed By: #### 5 8410-2 ####[facility]ENTERNCLIA [id number] [place] [address] [place] WBC (Bld) [#/Vol] 7.83 10*3/uL Normal 3.70-11.00 [facility] Comment on above: Order Comment: Speci men Type: BLOOD SPECIMENOrdering Facility: [facility] Address: [address] [place], [place] [address], [place] [address] Performed By: #### 5 8410-2 ####[facility] YANIV [facility] [id number] [place] [id number] [place] Erythrocyte distribution width (RBC) [Ratio] 17.0 % High 11.5 - 15.0 % [facility] Hematocrit (Bld) [Volume fraction] 34.6 % Low 36.0 - 46.0 % [facility] Hemoglobin (Bld) [Mass/Vol] 10.5 g/dL Low 11.5 - 15.5 g/dL [facility] MCH (RBC) [Entitic mass] 22.9 pg Low 26.0 - 34.0 pg [facility] MCHC (RBC) [Mass/Vol] 30.3 g/dL Low 30.5 - 36.0 g/ dL [facility] MCV (RBC) [Entitic vol] 75.5 fL Low 80.0 - 100.0 fL [facility] Nucleated RBC (Bld) [#/Vol] <0.01 k/uL [facility] Platelet mean volume (Bld) [Entitic vol] 11.6 fL 9.0 - 12.7 fL [facility] Platelets (Bld) [#/Vol] 178 10*3/uL 150 - 400 k /uL [facility] RBC (Bld) [#/Vol] 4.58 10*6/uL 3.90 - 5.20 m/uL [facility] WBC (Bld) [#/Vol] 7.83 10*3/uL 3.70 - 11. 00 k/uL [facility] CNPNon 09-01-2023 CNPN Telephone (YOUSIF) ERICA TORO ([id number]) 1995 F Date Time Provider Department 09/01/23 [...] hydrated and restoring electrolytes with a Body Whiteface Lyte. Let me know if there are [...] tablet by mouth daily at bedtime. - [id number]-yyno ps-folate 1 29 mg iron- 1 mg [...] by KARI BALDERAS RN on 09/02/[address] [facility] Comprehensive metabolic 2000 panelon 09-01-2023 Albumin [Mass/Vol] 3.7 g/dL Low 3.9-4.9 [facility] Comment on above: Order Comment: Speci men Type: BLOOD SPECIMENOrdering Facility: [facility] Address: [address] [place] [address] Performed By: #### 2 4323-8, 2532-0 ####[facility] YANIVST[facility] [id number] [place] [address] [place] ALP [Catalytic activity/Vol] 100 U/L Normal 34-[address] [facility] Comment on above: Order Comment: Speci men Type: BLOOD SPECIMENOrdering Facility: [facility] Address: [address] [place] [address] Performed By: #### 2 4323-8, 2531-0 ####[facility] MARLYNWNCLIA [id number] [place] [address] [place] ALT [Catalytic activity/Vol] 6 U/L Low 7-[address] [facility] Comment on above: Order Comment: Speci men Type: BLOOD SPECIMENOrdering Facility: [facility] Address: [address] [place] [address] Performed By: #### 2 4323-8, 2531-0 ####[facility]ENTERNCLIA [id number] [place] [address] [place] Anion gap [Moles/Vol] 11 mmol/L Normal 9-18 [facility] Comment on above: Order Comment: Speci men Type: BLOOD SPECIMENOrdering Facility: [facility] Address: [address] [place] [address] Performed By: #### 2 4323-8, 2531-0 ####[facility]ENTERNCLIA [id number] [place] [address] [place] AST [Catalytic activity/Vol] 15 U/L Normal 13-[address] [facility] Comment on above: Order Comment: Speci men Type: BLOOD SPECIMENOrdering Facility: [facility] Address: [address] [place] [address] Performed By: #### 2 4323-8, 2531-0 ####[facility]ENTERNCLIA [id number] [place] [address] [place] Bilirubin [Mass/Vol] 0.3 mg/dL Normal 0.2-1.3 [facility] Comment on above: Order Comment: Speci men Type: BLOOD SPECIMENOrdering Facility: [facility] Address: [address] [place] [address] Performed By: #### 2 432-8, 2531-0 ####[facility] YANIV MILLTOWNCLIA [id number] [place] [address] [place] Calcium [Mass/Vol] 8.4 mg/dL Low 8.5-10.2 [facility] Comment on above: Order Comment: Speci men Type: BLOOD SPECIMENOrdering Facility: [facility] Address: [address] [place] [address] Performed By: #### 2 4328, 2531-0 ####[facility] MILLTOWNCLIA [id number] [place] [address] [place] Chloride [Moles/Vol] 104 mmol/L Normal 97-105 [facility] Comment on above: Order Comment: Speci men Type: BLOOD SPECIMENOrdering Facility: [facility] Address: [address] [place] [address] Performed By: #### 2 4328, 2531-0 ####[facility] MILLTOWNCLIA [id number] [place] [address] [place] CO2 [Moles/Vol] 20 mmol/L Low 22-[address] [facility] Comment on above: Order Comment: Speci men Type: BLOOD SPECIMENOrdering Facility: [facility] Address: [address] [place] [address] Performed By: #### 2 4328, 2531-0 ####[facility] MILLTOWNCLIA [id number] [place] [address] [place] Creatinine [Mass/Vol] 0.48 mg/dL Low 0.58-0.96 [facility] Comment on above: Order Comment: Speci men Type: BLOOD SPECIMENOrdering Facility: [facility] Address: [address] [facility] [place] [address] Performed By: #### 2 4328, 2531-0 ####[facility] [id number] [place] [address] [place] Creatinine and Glomerular filtration rate.predicted panel (S/P/Bld) 133 mL/min/1.73m??? Normal >=[address] [facility] Comment on above: Order Comment: Ambrosio dhaliwal Type: BLOOD SPECIMENOrdering Facility: [facility] Address: [address] [place] [address] Result Comment: Genevieve mated Glomerular Filtration Rate [...] By: #### 2 4323-8, 2532-0 ####[facility] [id number] [place] [address] [place] Glucose [Mass/Vol] 74 mg/dL Normal 74-99 [facility] Comment on above: Order Comment: Ambrosio dhaliwal Type: BLOOD SPECIMENOrdering Facility: [facility] Address: [address] [place] [address] Result Comment: The [place] Diabetes Association (ADA) provides guidance for cutoff [...] Standards of Medical Care in Diabetes 2016, [place] [employer]. Diabetes Care. 2016.39(Suppl 1). Performed By: #### 2 4323-8, 2532-0 ####[facility] [id number] [place] [address] [place] Potassium [Moles/Vol] 3.5 mmol/L Low 3.7-5.1 [facility] Comment on above: Order Comment: Speci men Type: BLOOD SPECIMENOrdering Facility: [facility] Address: [address] [place] [address] Performed By: #### 2 4323-8, 2-0 ####[facility] YANIV MILLTOWNCLIA [id number] [place] [address] [place] Protein [Mass/Vol] 6.7 g/dL Normal 6.3-8.0 [facility] Comment on above: Order Comment: Speci men Type: BLOOD SPECIMENOrdering Facility: [facility] Address: [address] [place] [address] Performed By: #### 2 4323-8, 2531-0 ####[facility] MILLWSANDYLIA [id number] [place] [address] [place] Sodium [Moles/Vol] 135 mmol/L Low 136-144 [facility] Comment on above: Order Comment: Speci men Type: BLOOD SPECIMENOrdering Facility: [facility] Address: [address] [place] [address] Performed By: #### 2 4323-8, 2531-0 ####[facility] MILLANILWNCLIA [id number] [place] [address] [place] Urea nitrogen [Mass/Vol] 6 mg/dL Low 7-[address] [facility] Comment on above: Order Comment: Speci men Type: BLOOD SPECIMENOrdering Facility: [facility] Address: [address] [place] [address] Performed By: #### 2 4323-8, 2532-0 ####[facility] MILLTOWNCLIA [id number] [place] [address] [place] Albumin [Mass/Vol] 3.7 g/dL Low 3.9 - 4.9 g/dL [facility] ALP [Catalytic activity/Vol] 100 U/L 34 - 123 U/L [facility] ALT [Catalytic activity/Vol] 6 U/L Low 7 - 38 U/L [facility] Anion gap [Moles/Vol] 11 mmol/L 9 - 18 mmol/L [facility] AST [Catalytic activity/Vol] 15 U/L 13 - 35 U/L [facility] Bilirubin [Mass/Vol] 0.3 mg/dL 0.2 - 1.3 mg/dL [facility] Calcium [Mass/Vol] 8.4 mg/dL Low 8.5 - 10.2 mg/dL [facility] Chloride [Moles/Vol] 104 mmol/L 97 - 105 mmol/L [facility] CO2 [Moles/Vol] 20 mmol/L Low 22 - 30 mmol/L [facility] Creatinine [Mass/Vol] 0.48 mg/dL Low 0.58 - 0.96 mg/dL [facility] Estimated Glomerular Filtration Rate 133 mL/min/1.73m >=60 mL/min/1.73m [facility] Glucose [Mass/Vol] 74 mg/dL 74 - 99 mg/dL [facility] Potassium [Moles/Vol] 3.5 mmol/L Low 3.7 - 5.1 mmol /L [facility] Protein [Mass/Vol] 6.7 g/dL 6.3 - 8.0 g/dL [facility] Sodium [Moles/Vol] 135 mmol/L Low 136 - 144 mmol/L [facility] Urea nitrogen [Mass/Vol] 6 mg/dL Low 7 - 21 mg/dL [facility] LD LACTATE DEHYDROon 023 LDH [Catalytic activity/Vol] 172 U/L 135 - 214 U/L [facility] LDH SerPl-cCncon 09-01-2023 LDH [Catalytic activity/Vol] 172 U/L Normal 135-[address] [facility] Comment on above: Order Comment: Speci men Type: BLOOD SPECIMENOrdering Facility: [facility] Address: [address] [place] [address] Performed By: #### 2 4323-8, 2532-0 ####[facility] YANIVCLAREMORE INDIAN HOSP[facility] – CLAREMOREROSALINE [id number] [place] [id number] [place] Prot/Creat Uron 09-01-2023 Protein/Creatinine (U) [Mass ratio] 0.11 mg/mg Normal <0.[address] [facility] Comment on above: Order Comment: Speci men Type: URINE SPECIMENOrdering Facility: [facility] Address: [address] [place] [address] Result Comment: Adul t Proteinuria Categories: <0.15 mg/mg is considered normal to mildly increased 0.15 - 0.50 mg/mg is considered moderately increased >0.50 mg/mg is considered severely increased KDIGO. (2013). KDIGO 2012 Clinical Practice Guideline for the Evaluation and Management of Chronic Kidney Disease. Official Journal of the International Society of Nephrology, 3(1), 1-150. Performed By: #### 2 890-2 ####[facility] LABIA [id number] [place] [address] [place] Protein/Creatinine (U) [Mass ratio]on 09-01-2023 Creatinine (U) [Mass/Vol] 79.9 mg/dL Normal 20.0-300.[address] [facility] Comment on above: Order Comment: Speci men Type: URINE SPECIMENOrdering Facility: [facility] Address: [address] [place] [address] Performed By: #### 2 890-2 ####[facility] LABIA [id number] [place] [address] [place] Protein (U) [Mass/Vol] 9 mg/dL Normal 0-20 [facility] Comment on above: Order Comment: Speci men Type: URINE SPECIMENOrdering Facility: [facility] Address: [address] [place] [address] Performed By: #### 2 890-2 ####[facility] LABIA [id number] [place] [address] [place] T4 Free SerPl-mCncon 023 Free T4 [Mass/Vol] 1.0 ng/dL Normal 0.9-1.7 [facility] Comment on above: Order Comment: Speci men Type: BLOOD SPECIMENOrdering Facility: [facility] Address: [facility] [facility] [address] Performed By: #### 3 024-7, 3016-3 ####[facility] LABCLIA [id number] [place] [address] [place] TSH SerPl-aCncon 09-01-2023 TSH Qn 3.720 m[IU]/L Normal 0.270-4.[address] [facility] Comment on above: Order Comment: Speci men Type: BLOOD SPECIMENOrdering Facility: [facility] Address: [place] [address] Result Comment: If t he patient is , TSH reference range varies by gestational period: First Trimester (weeks 9-12): 0.180-2.990 mIU/L Second Trimester: 0.110-3.980 mIU/L Third Trimester: 0.480-4.710 mIU/L Ed Gandhi et al. A Practical Approach for the Verifications and Determination of Site- and Trimester-Specific Reference Intervals for Thyroid Function tests in . Thyroid, 2019:29:3:412-420. Misha E, et al. 2017 Guidelines of the [place] Thyroid Association for the Diagnosis and Management of Thyroid Disease during and the . Thyroid, 2017:27:3:315-389. Performed By: #### 3 024-7, 3015-3 ####[facility] LABCLIA [id number] [place] [address] [place] URINE OB DIP B/Oon 3 Glucose Ql (U) Negative Neg mg/dL [facility] Protein.monoclonal (U) [Mass/Vol] Negative Neg mg/dL [facility] URINE OB DIP B/Oon 3 Glucose Ql (U) Negative Neg mg/dL [facility] Protein.monoclonal (U) [Mass/Vol] Negative Neg mg/dL [facility] CNPNon 07-22-2023 CNPN Telephone (OBGYWM) CORTEZERICA ([id number]) 1995 F Date Time Provider Department 07/22/23 [...] office for results. Pt was also sent [employer] message with results and further orders. Will await response from pt. Anahy Lackey LPN, RN 07/23/2023 4:59 PM Signed Patient did view [employer] message at 10:34 AM on 07/23/2023. Allergies As of Date: 07/22/2023 (No Known Allergies) Date Reviewed: 07/21/2023 Reviewed by: Marilyn Darden Ma - Fully Assessed Prescriptions as of 07/23/2023 - Lactobacillus acidophilus (FLORAJEN ACIDOPHILUS) 20 billion cell cap Take 1 capsule by mouth once daily. - doxylamine (UNISOM, DOXYLAMINE,) 25 mg tab Take 1 tablet by mouth daily at bedtime. - pn16-knuz ps-folate 1 29 mg iron- 1 mg [...] by ANAHY WOOD RN on 07/23/[address] [facility] CBC W Auto Differential pane l (Bld)on 07-21-2023 Basophils (Bld) [#/Vol] 10*3/uL Normal <0.11 [facility] Comment on above: Order Comment: Speci men Type: BLOOD SPECIMENOrdering Facility: [facility] Address: [address] [place] [address] Performed By: #### 5 7021-8 ####[facility]ITALWNYLIA [id number] [place] [address] [place] Basophils/100 WBC (Bld) 0.3 % Normal [facility] Comment on above: Order Comment: Speci men Type: BLOOD SPECIMENOrdering Facility: [facility] Address: [address] [place] [address] Performed By: #### 5 7021-8 ####[facility] [id number] [place] [address] [place] Differential cell count method Nom (Bld) Auto Normal [facility] Comment on above: Order Comment: Speci men Type: BLOOD SPECIMENOrdering Facility: [facility] Address: [address] [place] [address] Performed By: #### 5 7021-8 ####[facility] [id number] [place] [address] [place] Eosinophils (Bld) [#/Vol] 0.06 10*3/uL Normal <0.[address] [facility] Comment on above: Order Comment: Speci men Type: BLOOD SPECIMENOrdering Facility: [facility] Address: [address] [place] [address] Performed By: #### 5 7021-8 ####[facility]ITAL[facility] [id number] [place] [address] [place] Eosinophils/100 WBC (Bld) 0.8 % Normal [facility] Comment on above: Order Comment: Speci men Type: BLOOD SPECIMENOrdering Facility: [facility] Address: [address] [place] [address] Performed By: #### 5 7021-8 ####[facility]ENTERGHAZAL [id number] [place] [address] [place] Erythrocyte distribution width (RBC) [Ratio] 14.4 % Normal 11.5-15.[address] [facility] Comment on above: Order Comment: Speci men Type: BLOOD SPECIMENOrdering Facility: [facility] Address: [address] [place] [address] Performed By: #### 5 7021-8 ####[facility] [id number] [place] [address] [place] Hematocrit (Bld) [Volume fraction] 31.6 % Low 36.0-46.[address] [facility] Comment on above: Order Comment: Speci men Type: BLOOD SPECIMENOrdering Facility: [facility] Address: [address] [place] [address] Performed By: #### 5 7021-8 ####[facility] [id number] [place] [address] [place] Hemoglobin (Bld) [Mass/Vol] 10.0 g/dL Low 11.5-15.[address] [facility] Comment on above: Order Comment: Speci men Type: BLOOD SPECIMENOrdering Facility: [facility] Address: [address] [place] [address] Performed By: #### 5 7021-8 ####[facility]ENTERNCLIA [id number] [place] [address] [place] Immature granulocytes (Bld) [#/Vol] 0.04 10*3/uL Normal <0.[address] [facility] Comment on above: Order Comment: Speci men Type: BLOOD SPECIMENOrdering Facility: [facility] Address: [address] [place] [address] Performed By: #### 5 7021-8 ####[facility] HOSPITALLIA [id number] [place] [address] [place] Immature granulocytes/100 WBC (Bld) 0.6 % Normal [facility] Comment on above: Order Comment: Speci men Type: BLOOD SPECIMENOrdering Facility: [facility] Address: [address] [place] [address] Performed By: #### 5 7021-8 ####[facility] [id number] [place] [address] [place] Lymphocytes (Bld) [#/Vol] 1.11 10*3/uL Normal 1.00-4.[address] [facility] Comment on above: Order Comment: Speci men Type: BLOOD SPECIMENOrdering Facility: [facility] Address: [address] [place] [address] Performed By: #### 5 7021-8 ####[facility] [id number] [place] [address] [place] Lymphocytes/100 WBC (Bld) 15.7 % Normal [facility] Comment on above: Order Comment: Speci men Type: BLOOD SPECIMENOrdering Facility: [facility] Address: [address] [place] [address] Performed By: #### 5 7021-8 ####[facility] [id number] [place] [address] [place] MCH (RBC) [Entitic mass] 23.8 pg Low 26.0-34.[address] [facility] Comment on above: Order Comment: Speci men Type: BLOOD SPECIMENOrdering Facility: [facility] Address: [address] [place] [address] Performed By: #### 5 7021-8 ####[facility] [id number] [place] [address] [place] MCHC (RBC) [Mass/Vol] 31.6 g/dL Normal 30.5-36.0 [facility] Comment on above: Order Comment: Speci men Type: BLOOD SPECIMENOrdering Facility: [facility] Address: [address] [place] [address] Performed By: #### 5 7021-8 ####[facility] [id number] [place] [address] [place] MCV (RBC) [Entitic vol] 75.1 fL Low 80.0-100.0 [facility] Comment on above: Order Comment: Speci men Type: BLOOD SPECIMENOrdering Facility: [facility] Address: [address] [place] [address] Performed By: #### 5 7021-8 ####[facility] [id number] [place] [address] [place] Monocytes (Bld) [#/Vol] 0.68 10*3/uL Normal <0.[address] [facility] Comment on above: Order Comment: Speci men Type: BLOOD SPECIMENOrdering Facility: [facility] Address: [address] [place] [address] Performed By: #### 5 7021-8 ####[facility] [id number] [place] [address] [place] Monocytes/100 WBC (Bld) 9.6 % Normal [facility] Comment on above: Order Comment: Speci men Type: BLOOD SPECIMENOrdering Facility: [facility] Address: [address] [place] [address] Performed By: #### 5 7021-8 ####[facility] [id number] [place] [address] [place] Neutrophils (Bld) [#/Vol] 5.16 10*3/uL Normal 1.45-7.[address] [facility] Comment on above: Order Comment: Speci men Type: BLOOD SPECIMENOrdering Facility: [facility] Address: [address] [address] Performed By: #### 5 7021-8 ####[facility] KALYAN [id number] [place] [address] [place] Neutrophils/100 WBC (Bld) 73.0 % Normal [facility] Comment on above: Order Comment: Speci men Type: BLOOD SPECIMENOrdering Facility: [facility] Address: [address] [address] Performed By: #### 5 7021-8 ####[facility] [id number] [place] [address] [place] Nucleated RBC (Bld) [#/Vol] 10*3/uL Normal <0.[address] [facility] Comment on above: Order Comment: Speci men Type: BLOOD SPECIMENOrdering Facility: [facility] Address: [address] [address] Performed By: #### 5 7021-8 ####[facility] [id number] [place] [address] [place] Nucleated RBC/100 WBC (Bld) [Ratio] 0.0 /100 WBC Normal [facility] Comment on above: Order Comment: Speci men Type: BLOOD SPECIMENOrdering Facility: [facility] Address: [address] [place] [address] Performed By: #### 5 7021-8 ####[facility] HOSPITALLI [id number] [place] [address] [place] Platelet mean volume (Bld) [Entitic vol] 10.9 fL Normal 9.0-12.[address] [facility] Comment on above: Order Comment: Speci men Type: BLOOD SPECIMENOrdering Facility: [facility] Address: [address] [address] Performed By: #### 5 7021-8 ####[facility] [id number] [place] [address] [place] Platelets (Bld) [#/Vol] 192 10*3/uL Normal 150-[address] [facility] Comment on above: Order Comment: Speci men Type: BLOOD SPECIMENOrdering Facility: [facility] Address: [address] [place] [address] Performed By: #### 5 7021-8 ####[facility] [id number] [place] [address] [place] RBC (Bld) [#/Vol] 4.21 10*6/uL Normal 3.90-5.20 [facility] Comment on above: Order Comment: Speci men Type: BLOOD SPECIMENOrdering Facility: [facility] Address: [address] [place] [address] Performed By: #### 5 7021-8 ####[facility] [id number] [place] [address] [place] WBC (Bld) [#/Vol] 7.07 10*3/uL Normal 3.70-11.00 [facility] Comment on above: Order Comment: Speci men Type: BLOOD SPECIMENOrdering Facility: [facility] Address: [address] [place] [address] Performed By: #### 5 7021-8 ####[facility]IA [id number] [address] [address] [place] GEST GLUC SCREEN, 1-HR, 50 G M, NON-FASTINGon 07-21-2023 Glucose [Mass/Vol] 84 mg/dL Normal 74-134 [facility] Comment on above: Order Comment: Speci men Type: BLOOD SPECIMENOrdering Facility: [facility] Address: [address] [place] [address] Result Comment: Amer [place] Congress of Obstetricians and Gynecologists (Adrianna/Mandi) guidelines state a gestational diabetes mellitus positive screen is made, in women not previously diagnosed with overt diabetes, when the 1 hr plasma glucose level is equal to or above 140 mg/dL. The [facility] First Aid Instructor and [facility] [place] recommends a 135 mg/dL cutoff. Performed By: #### G LTGST ###[facility] LABORATORYCLIA [id number] [place] [address] [place] Reagin and Treponema pallidu m IgG and IgM [Interp]on 07-21-2023 T. pallidum IgG+IgM IA Ql (S) Non-Reactive Normal Nonreactive [facility] Comment on above: Order Comment: Speci men Type: BLOOD SPECIMENOrdering Facility: [facility] Address: [address] [address] Performed By: #### 7 3752-8 ####[facility] LABCLIA [id number] [place] [address] [place] Reagin+T pallidum IgG+IgM Se rPl-Impon 07-21-2023 Reagin and Treponema pallidum IgG and IgM [Interp] Cannot exclude recent Treponemal infection if specimen collected within 7-10 days after appearance of suspect lesions or 2-3 weeks after an exposure. Clinical correlation is required. Normal [facility] Comment on above: Order Comment: Speci men Type: BLOOD SPECIMENOrdering Facility: [facility] Address: [address] [address] Performed By: #### 7 3752-8 ####[facility] LABCLIA [id number] [place] [address] [place] BACTERIAL VAGINOSIS NAATon 0 07-12-2023 Lactobacillus crispatus+gasseri+jense reema + Gardnerella vaginalis + Atopobium vaginae rRNA ODILON+probe Ql (Vag fld) Positive Abnormal Negative for bacterial vaginosis [facility] Lactobacillus crispatus+gasseri+jense reema + Gardnerella vaginalis + Atopobium vaginae rRNA ODILON+probe Ql (Vag fld) Positive Abnormal Negative for bacterial vaginosis [facility] Comment on above: Order Comment: Speci men Type: SWABOrdering Facility: [facility] Address: [address] [place] [address] Performed By: #### C VTV, BVAMP ####[facility] LABCLIA [id number] [address] [place] FRANCESCO/TRICHOMONAS NAATon 0 07-12-2023 C. glabrata RNA ODILON+probe Ql (Vag fld) Negative Negative for Francesco glabrata [facility] Francesco sp DNA ODILON+probe Ql (Vag fld) Positive Abnormal Negative for Francesco species [facility] T. vaginalis DNA ODILON+probe Ql (Unsp spec) Negative Negative for Trichomonas vaginalis by amplification [facility] C. glabrata RNA ODILON+probe Ql (Vag fld) Negative Normal Negative for Francesco glabrata [facility] Comment on above: Order Comment: Speci men Type: SWABOrdering Facility: [facility] Address: [address] [place] [address] Performed By: #### C VTV, BVAMP ####[facility] LABCLIA [id number] [place] [address] [place] Francesco sp DNA ODILON+probe Ql (Vag fld) Positive Abnormal Negative for Francesco species [facility] Comment on above: Order Comment: Speci men Type: SWABOrdering Facility: [facility] Address: [address] [place], [place] [address] Performed By: #### C VTV, BVAMP ####[facility] LABCLIA [id number] [address] [place] T. vaginalis DNA ODILON+probe Ql (Unsp spec) Negative Normal Negative for Trichomonas vaginalis by amplification [facility] Comment on above: Order Comment: Speci men Type: SWABOrdering Facility: [facility] Address: [address] [place] [address] Performed By: #### C VTV, BVAMP ####[facility] LABCLIA [id number] [address] [place] Cara 07-12-2023 CNPN Telephone (OBGYWM) ERICA TORO ([id number]) 1995 F Date Time Provider Department 07/12/23 [...] tablet by mouth daily at bedtime. - [id number]-[id number] ps-folate 1 29 mg iron- 1 mg [...] by PRIYANKA DOE LPN on 07/12/[address] [facility] UA DIP, URINE (POC)on 2022 BILIRUBIN UA (POCT) Negative Negative [facility] CLARITY UA (POCT) Slightly Cloudy Cl [facility] COLOR UA (POCT) Yellow [facility] GLUCOSE UA (POCT) Negative Negative mg/dL [facility] Hemoglobin Ql (U) Negative Negative [facility] KETONE UA (POCT) Negative Negative mg/dL [facility] LEUKOCYTES UA (POCT) Trace Abnormal Negative [facility] NITRITE UA (POCT) Negative Negative [facility] PH UA (POCT) 6.5 4.5 - 8.0 [facility] Protein Ql (U) Negative Negative mg/dL [facility] SPECIFIC GRAVITY UA (POCT) 1.015 1.005 - 1.030 [facility] UROBILINOGEN UA (POCT) 2.0 E.U./dL Abnormal Normal E.U./ dL [facility] CNCOon 06-29-2023 CNCO Letter Text Normal [facility] OBSTETRIC ULTRASOUND WHIon 0 06-29-2023 [facility] URINE OB DIP B/Oon 3 Glucose Ql (U) Negative Neg mg/dL [facility] Protein.monoclonal (U) [Mass/Vol] Negative Neg mg/dL [facility] CNPNon 06-14-2023 NGUYENN Telephone (OBGYWM) ERICA TORO ([id number]) 1995 F Date Time Provider Department 06/14/23 DULCE SHANNON OBWILLIAN During your visit today, we recorded the following information about you: Allergies As of Date: 06/14/2023 (No Known Allergies) Date Reviewed: 05/26/2023 Reviewed by: Marilyn Darden Ma - Fully Assessed Reason for Visit: Orders [681] Primary Visit Diagnosis:Encounter for follow-up ultrasound of anatomy [Z36.2] Order(s):OBSTETRIC ULTRASOUND [facility] [[id number]] Order #: [id number]: 1 FUTURE Prescriptions as of 06/14/2023 - Lactobacillus acidophilus (FLORAJEN ACIDOPHILUS) 20 billion cell cap Take 1 capsule by mouth once daily. - doxylamine (UNISOM, DOXYLAMINE,) 25 mg tab Take 1 tablet by mouth daily at bedtime. - wi40-kewb ps-folate 1 29 mg iron- 1 mg [...] Status:Closed by DULCE SHANNON on 06/14/23 [facility] C[facility]N Telephone (OBGYWM) ERICA TORO ([id number]) 1995 F Date Time Provider Department 06/02/23 CHASEMIKIECORTNEY OBGYWM During your visit today, we recorded the following information about you: Kari Balderas RN 06/02/2023 4:26 PM Signed d Received breast pump order from [employer]. To to sign. Kari Nunn RN, RN [...] tablet by mouth daily at bedtime. - [id number]-pxth ps-folate 1 29 mg iron- 1 mg [...] Status:Closed by KARI BALDERAS RN on 06/02/23 [facility] ALPHA FETOPRO MATERNALon AFP, MATERNAL 0.90 MoM Normal [facility] Comment on above: Order Comment: Speci men Type: BLOOD SPECIMENOrdering Facility: [facility] Address: [address] [address] Result Comment: 54.7 7 ng/mL Performed By: #### A FPMAT ####[facility] LABCLIA [id number] [address] OF [facility] DATE OF COLLECTION #1 05/26/23 Normal [facility] Comment on above: Order Comment: Speci men Type: BLOOD SPECIMENOrdering Facility: [facility] Address: [address] [address] Performed By: #### A FPMAT ####[facility] LABCLIA [id number] [place] [address] [place] DATE RECEIVED 05/27/[address] [facility] Comment on above: Order Comment: Speci men Type: BLOOD SPECIMENOrdering Facility: [facility] Address: [address] [address] Performed By: #### A FPMAT ####[facility] LABCLIA [id number] [address] [place] MEGAN 10/08/[address] [facility] Comment on above: Order Comment: Speci men Type: BLOOD SPECIMENOrdering Facility: [facility] Address: [address] [address] Performed By: #### A FPMAT ####[facility] LABCLIA [id number] [address] [place] GESTATION AT DATE OF SAMPLE 20 weeks 5 days (by scan) Normal [facility] Comment on above: Order Comment: Speci men Type: BLOOD SPECIMENOrdering Facility: [facility] Address: [address] [place] [address] Performed By: #### A FPMAT ####[facility] LABCLIA [id number] [place] [address] [place] INSULIN DEPENDENT DIABETES None Normal [facility] Comment on above: Order Comment: Speci men Type: BLOOD SPECIMENOrdering Facility: [facility] Address: [address] Performed By: #### A FPMAT ####[facility] LABCLIA [id number] [place] [address] [place] IVF No Normal [facility] Comment on above: Order Comment: Speci men Type: BLOOD SPECIMENOrdering Facility: [facility] Address: [address] Performed By: #### A FPMAT ####[facility] LABCLIA [id number] [address] [place] MATERNAL AFP COMMENT See comments below Normal [facility] Comment on above: Order Comment: Ambrosio dhaliwal Type: BLOOD SPECIMENOrdering Facility: [facility] Address: [address] [place] [address] Result Comment: INTE RPRETATION Screening result : Screen negative Risk of NTD : 1 in 6,100 Comment : The interpretation is for NTD only A screen negative result does not exclude the possibility of a neural tube defect, because screening does not detect all affected pregnancies Performed By: #### A FPMAT ####[facility] LABCLIA [id number] [place] [address] [place] MATERNAL AGE AT MEGAN 27 years Normal [facility] Comment on above: Order Comment: Ambrosio dhaliwal Type: BLOOD SPECIMENOrdering Facility: [facility] Address: [address] [place] [address] Performed By: #### A FPMAT ####[facility] LABCLIA [id number] [address] [place] PATIENT'S WEIGHT DAY OF COLLECTION 170 lb. Normal [facility] Comment on above: Order Comment: Ambrosio dhaliwal Type: BLOOD SPECIMENOrdering Facility: [facility] Address: [address] [place] [address] Performed By: #### A FPMAT ####[facility] LABCLIA [id number] [address] [place] INTERP-MATERNAL AFP Negative Normal Screen Negative [facility] Comment on above: Order Comment: Speci men Type: BLOOD SPECIMENOrdering Facility: [facility] Address: [address] [address] Performed By: #### A FPMAT ####[facility] LABCLIA [id number] [address] [place] PREVIOUS NTD None Normal [facility] Comment on above: Order Comment: Speci men Type: BLOOD SPECIMENOrdering Facility: [facility] Address: [address] [place] [address] Performed By: #### A FPMAT ####[facility] LABCLIA [id number] [address] [place] RISK OF NTD ;1:[address] [facility] Comment on above: Order Comment: Speci men Type: BLOOD SPECIMENOrdering Facility: [facility] Address: [address] [place] [address] Performed By: #### A FPMAT ####[facility] LABCLIA [id number] [address] [place] SAMPLE #1 [id number] Normal [facility] Comment on above: Order Comment: Speci men Type: BLOOD SPECIMENOrdering Facility: [facility] Address: [address] [place] [address] Performed By: #### A FPMAT ####[facility] LABCLIA [id number] [address] [place] STAFF REVIEW (MATERNAL SCREENS) Reviewed by Matthew Turpin PhD Normal [facility] Comment on above: Order Comment: Speci men Type: BLOOD SPECIMENOrdering Facility: [facility] Address: [address] [place] [address] Performed By: #### A FPMAT ####[facility] LABCLIA [id number] [place] [address] [place] CNCOon 05-26-2023 CNCO Letter Text Letter Text Letter Text Normal [facility] OBSTETRIC ULTRASOUND WHIon 0 05-26-2023 [facility] URINE OB DIP B/Oon 3 Glucose Ql (U) Negative Neg mg/dL [facility] Protein.monoclonal (U) [Mass/Vol] Negative Neg mg/dL [facility] URINE OB DIP B/Oon 3 Glucose Ql (U) Negative Neg mg/dL [facility] Protein.monoclonal (U) [Mass/Vol] Negative Neg mg/dL [facility] CNPNon 04-06-2023 CNPN Telephone (OBGYWM) ERICA TORO ([id number]) 1995 F Date Time Provider Department 04/06/23 CORTNEY CASH During your visit today, we recorded the following information about you: Kari Balderas RN 04/06/2023 9:09 AM Signed 13w4d Patient viewed her vaginal cultures on Mychart and seen she was BV+ and yeast. Would like prescriptions sent to [facility] in [place]. Added to her pharmacy list. Please review [...] tablet by mouth daily at bedtime. - [id number]-skpj ps-folate 1 29 mg iron- 1 mg [...] Status:Closed by CORTNEY CASH on 04/06/[address] [facility] BACTERIAL VAGINOSIS AMPLIFIC ATIONon 04-05-2023 Lactobacillus crispatus+gasseri+jense reema + Gardnerella vaginalis + Atopobium vaginae rRNA ODILON+probe Ql (Vag fld) Positive Abnormal Negative for bacterial vaginosis [facility] Comment on above: Order Comment: Speci men Type: SWABOrdering Facility: [facility] Address: [address] [place] [address] Performed By: #### B VAMP, CVTV ####[facility] LABCLIA [id number] [address] STATES OF [facility] FRANCESCO / TRICHOMONAS AMPLIF ICATIONon 04-05-2023 FRANCESCO / TRICHOMONAS AMPLIFICATION [employer] RNA: Positive for Francesco species FRANCESCO GLABRATA RNA: Negative for Francesco glabrata TRICH VAG AMPLIFICATION RNA: Negative for Trichomonas vaginalis by amplification Abnormal 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 Normal [facility] CBC panel Auto (Bld)on 03-25 Erythrocyte distribution width (RBC) [Ratio] 14.8 % Normal 11.5-15.[address] [facility] Comment on above: Order Comment: Speci men Type: BLOOD SPECIMENOrdering Facility: [facility] Address: [address] [place] [address] Performed By: #### 5 8410-2 ####[facility] HOSPITALLIA [id number] [place] [address] [place] Hematocrit (Bld) [Volume fraction] 39.2 % Normal 36.0-46.[address] [facility] Comment on above: Order Comment: Speci men Type: BLOOD SPECIMENOrdering Facility: [facility] Address: [address] [place] [address] Performed By: #### 5 8410-2 ####[facility]IT[facility] [id number] [place] [address] [place] Hemoglobin (Bld) [Mass/Vol] 12.8 g/dL Normal 11.5-15.[address] [facility] Comment on above: Order Comment: Speci men Type: BLOOD SPECIMENOrdering Facility: [facility] Address: [address] [place] [address] Performed By: #### 5 8410-2 ####[facility]ITALLIA [id number] [place] [address] [place] MCH (RBC) [Entitic mass] 25.0 pg Low 26.0-34.[address] [facility] Comment on above: Order Comment: Speci men Type: BLOOD SPECIMENOrdering Facility: [facility] Address: [address] [place] [address] Performed By: #### 5 8410-2 ####[facility]ITALL[facility] [id number] [place] [address] [place] MCHC (RBC) [Mass/Vol] 32.7 g/dL Normal 30.5-36.0 [facility] Comment on above: Order Comment: Speci men Type: BLOOD SPECIMENOrdering Facility: [facility] Address: [address] [place] [address] Performed By: #### 5 8410-2 ####[facility]ENTERGHAZAL [id number] [place] [address] [place] MCV (RBC) [Entitic vol] 76.7 fL Low 80.0-100.0 [facility] Comment on above: Order Comment: Speci men Type: BLOOD SPECIMENOrdering Facility: [facility] Address: [address] [place] [address] Performed By: #### 5 8410-2 ####[facility] CENTERSANDYCandelario [id number] [place] [address] [place] Nucleated RBC (Bld) [#/Vol] 10*3/uL Normal <0.[address] [facility] Comment on above: Order Comment: Speci men Type: BLOOD SPECIMENOrdering Facility: [facility] Address: [address] [place] [address] Performed By: #### 5 8410-2 ####[facility]ENTERGHAZAL [id number] [place] [address] [place] Platelet mean volume (Bld) [Entitic vol] 11.2 fL Normal 9.0-12.[address] [facility] Comment on above: Order Comment: Speci men Type: BLOOD SPECIMENOrdering Facility: [facility] Address: [address] [place] [address] Performed By: #### 5 8410-2 ####[facility]ERSANDYAMER[facility] [id number] [place] [address] [place] Platelets (Bld) [#/Vol] 216 10*3/uL Normal 150-[address] [facility] Comment on above: Order Comment: Speci men Type: BLOOD SPECIMENOrdering Facility: [facility] Address: [address] [place] [address] Performed By: #### 5 8410-2 ####[facility]ERNCLIA [id number] [place] [address] [place] RBC (Bld) [#/Vol] 5.11 10*6/uL Normal 3.90-5.20 [facility] Comment on above: Order Comment: Speci men Type: BLOOD SPECIMENOrdering Facility: [facility] Address: [address] [place] [address] Performed By: #### 5 8410-2 ####[facility]ENTERNCA [id number] [place] [address] [place] WBC (Bld) [#/Vol] 7.73 10*3/uL Normal 3.70-11.00 [facility] Comment on above: Order Comment: Speci men Type: BLOOD SPECIMENOrdering Facility: [facility] Address: [address] [place] [address] Performed By: #### 5 8410-2 ####[facility] [id number] [place] [address] [place] HBV surface Ag Ser Qlon 06-0 HBV surface Ag Ql (S) Negative Normal Negative [facility] Comment on above: Order Comment: Speci men Type: BLOOD SPECIMENOrdering Facility: [facility] Address: [address] [place] [address] Performed By: #### 5 195-3, 63120-9, 03178-5 ####[facility] LABCLIA [id number] [address] [place] HCV Ab Ser Qlon 03-25-2023 HCV Ab Ql (S) Negative Normal Negative [facility] Comment on above: Order Comment: Speci men Type: BLOOD SPECIMENOrdering Facility: [facility] Address: [address] [place] [address] Result Comment: The result suggests no evidence of active infection with Hepatitis C virus. Should recent infection be suspected, repeat testing may be considered 4-6 weeks after this draw. Performed By: #### 1 6128-1 ####[facility] LABIA [id number] [place] [address] [place] HIV 1+2 Ab IA Qlon 3 HIV 1 and 2 Ab IA.rapid Nom Normal [facility] Comment on above: Order Comment: Speci men Type: BLOOD SPECIMENOrdering Facility: [facility] Address: [address] [place] [address] Result Comment: Test not indicated. Performed By: #### 5 195-3, 25020-2, 73425-0 ####[facility] LABIA [id number] [place] [address] [place] HIV 1+2 Ab+HIV1 p24 Ag IA Ql Non-Reactive Normal Nonreactive [facility] Comment on above: Order Comment: Speci men Type: BLOOD SPECIMENOrdering Facility: [facility] Address: [address] [place] [address] Performed By: #### 5 195-3, 78403-5, 66992-4 ####[facility] [id number] [place] [address] [place] HIVINT Normal [facility] Comment on above: Order Comment: Speci men Type: BLOOD SPECIMENOrdering Facility: [facility] Address: [address] [place] [address] Result Comment: No e vidence of HIV-1 or HIV-2 infection. Should recent infection be suspected, repeat testing may be considered 2-3 weeks after this draw. [place] Rev. Code 3701.243(E): This information has been [...] or diagnoses. Performed By: #### 5 195-3, 32182-3, 87741-1 ####[facility] LABCLIA [id number] [facility] [id number] [place] [address] OF [facility] [id number] PLUSon 03-25-2023 Cell-free DNA./Cell-free DNA.total Dosage of chromosome-specific cfDNA (cfDNA) [Molar fraction] 6% Normal [facility] Comment on above: Order Comment: Speci men Type: BLOOD SPECIMENOrdering Facility: [facility] Address: [address] [place] [address] Performed By: #### M AT21 ####[facility] LABCLIA [id number] [place] [address] Chr 13+18+21+X+Y aneuploidy Dosage of chromosome-specific cfDNA Ql (cfDNA) Negative Normal [facility] Comment on above: Order Comment: Speci men Type: BLOOD SPECIMENOrdering Facility: [facility] Address: [address] [place] [address] Performed By: #### M AT21 ####[facility] LABCLIA [id number] [place] [address] Chr 21 trisomy Dosage of chromosome-specific cfDNA Ql (cfDNA) Negative Normal [facility] Comment on above: Order Comment: Speci men Type: BLOOD SPECIMENOrdering Facility: [facility] Address: [address] [place] [address] Performed By: #### M AT21 ####[facility] LABCLIA [id number] [place] [address] Chr X and Y aneuploidy risk Sequencing Ql (cfDNA) [Interp] Not detected Normal [facility] Comment on above: Order Comment: Speci men Type: BLOOD SPECIMENOrdering Facility: [facility] Address: [address] [address] Result Comment: Not Detected Not Detected Performed By: #### M AT21 ####[facility] LABCLIA [id number] [place] [address] Citation Ata (Reference lab test) Comment Normal [facility] Comment on above: Order Comment: Speci men Type: BLOOD SPECIMENOrdering Facility: [facility] Address: [address] [place] [address] Result Comment: 1. P delores GAN, et al. Ayde Med. 2012;14(3):296-305. 2. Patricia HONG, et al. Prenat Diag. 2013;33(6):591-597. 3. Ha Nuñez, et al. Clin Chem. 2015 Jan;61(4):608-616. 4. Ramin GAN, et al. Ayde Med. 2011;13(11):913-920. 5. ACOG/SMFM Practice Bulletin No. 226, Jul 2020. Performed By: #### M AT21 ####[facility] LABCLIA [id number] [place] [id number] Gestational age Estimated from conception date Ervin Normal [facility] Comment on above: Order Comment: Speci men Type: BLOOD SPECIMENOrdering Facility: [facility] Address: [address] [place] [address] Performed By: #### M AT21 ####[facility] LABCLIA [id number] [place] [address] GESTATIONALAGE AGE > OR = 9W Yes Normal [facility] Comment on above: Order Comment: Speci men Type: BLOOD SPECIMENOrdering Facility: [facility] Address: [address] [place] [address] Performed By: #### M AT21 ####[facility] LABCLIA [id number] [place] [address] Laboratory comment Ata (Report) Comment Normal [facility] Comment on above: Order Comment: Speci men Type: BLOOD SPECIMENOrdering Facility: [facility] Address: [address] [place] [address] Result Comment: The MaterniT(R) 21 PLUS laboratory-developed test (LDT) analyzes circulating cell-free DNA from a maternal blood sample. This test is used for screening purposes and not diagnostic. Clinical correlation is recommended. Validation data on twin pregnancies is limited and the ability of this test to detect aneuploidy in higher multiple gestations has not yet been validated. Performed By: #### M AT21 ####[facility] [id number] [place] [id number] director part name Nom (Provider) Comment Normal [facility] Comment on above: Order Comment: Speci men Type: BLOOD SPECIMENOrdering Facility: [facility] Address: [address] [place] [address] Result Comment: This specimen showed an expected representation of chromosome 21, 18 and 13 material. Clinical correlation is suggested. Comment Vikram Lopez MD, PhD, Director, [employer] Performed By: #### M AT21 ####[facility] LABCLIA [id number] [place] [address] LIMITATIONS OF THE TEST Comment Normal [facility] Comment on above: Order Comment: Speci men Type: BLOOD SPECIMENOrdering Facility: [facility] Address: [address] [place] [address] Result Comment: Berhane williamson the results of [...] and Fragmin(R)). Performed By: #### M AT21 ####[facility] LABTPG MarineIA [id number] [place] [address] Monosomy X risk Dosage of chromosome-specific cfDNA Ql (Plasma cell-free+WBC DNA) [Interp] Not detected Normal [facility] Comment on above: Order Comment: Speci madhuri Type: BLOOD SPECIMENOrdering Facility: [facility] Address: [address] [address] Performed By: #### M AT21 ####[facility] LABCLIA [id number] [place] [address] NEGATIVE PREDICTIVE VALUE Note Normal [facility] Comment on above: Order Comment: Ambrosio dhaliwal Type: BLOOD SPECIMENOrdering Facility: [facility] Address: [address] [address] Result Comment: The Negative Predictive Value (NPV) for trisomy 21, 18, and 13 is greater than 99%. The NPV for SCA and ESS cannot be calculated as SCA and ESS are only reported when an abnormality is detected. Performed By: #### M AT21 ####[facility] LABIA [id number] [place] [address] NOTE Comment Normal [facility] Comment on above: Order Comment: Speci men Type: BLOOD SPECIMENOrdering Facility: [facility] Address: [address] [id number] Result Comment: See Notes [employer] is a subsidiary of [employer], using the brand [employer]. This test was developed and its performance characteristics determined by [employer]. It has not been cleared or approved by the Food and Drug Administration. This laboratory is certified under the Clinical Laboratory Improvement Amendments (CLIA) as qualified to perform high complexity clinical laboratory testing and accredited by the [employer] [place] [employer] (CAP). If there is future clinical need for adding MaterniT GENOME testing, this specimen will be available until term. [facility] samples will not be retained beyond 60 days. [facility] patients will have to send a new sample for re-sequencing ([facility] Test Code: 856343). Performed By: #### M AT21 ####[facility] LABIA [id number] [place] [address] PERFORMANCE CHARACTERISTICS Note Normal [facility] Comment on above: Order Comment: Ambrosio men Type: BLOOD SPECIMENOrdering Facility: [facility] Address: [place] [address] Result Comment: ! Sex ! Accuracy: 99.4% [...] Performed By: #### M AT21 ####[facility] LABCLIA [id number] [place] [address] POSITIVE PREDICTIVE VALUE N/A Normal [facility] Comment on above: Order Comment: Speci men Type: BLOOD SPECIMENOrdering Facility: [facility] Address: [address] [address] Performed By: #### M AT21 ####[facility] LABCLIA [id number] [place] [address] Reference Lab Test Method Comment Normal [facility] Comment on above: Order Comment: Speci men Type: BLOOD SPECIMENOrdering Facility: [facility] Address: [address] [place] [address] Result Comment: See Notes Circulating cell-free DNA [...] and 22. Performed By: #### M AT21 ####[facility] LABCLIA [id number] [place] [address] Sex Dosage of chromosome-specific cfDNA Nom (cfDNA) Comment Normal [facility] Comment on above: Order Comment: Speci men Type: BLOOD SPECIMENOrdering Facility: [facility] Address: [address] [address] Result Comment: Cons istent with Male Performed By: #### M AT21 ####[facility] LABCLIA [id number] [place] [address] Test performance information Ata (Unsp spec) Comment Normal [facility] Comment on above: Order Comment: Speci men Type: BLOOD SPECIMENOrdering Facility: [facility] Address: [address] [place] [address] Result Comment: The performance characteristics of the MaterniT(R) 21 PLUS laboratory-developed test (LDT) have been determined in a clinical validation study with women at increased risk for chromosomal aneuploidy.[1-4] Performed By: #### M AT21 ####[facility] LABCLIA [id number] [place] [address] Trisomy 13 risk Dosage of chromosome-specific cfDNA Ql (cfDNA) [Interp] Negative Normal [facility] Comment on above: Order Comment: Speci men Type: BLOOD SPECIMENOrdering Facility: [facility] Address: [address] [place] [address] Performed By: #### M AT21 ####[facility] LABCLIA [id number] [place] [address] Trisomy 18 risk Dosage of chromosome-specific cfDNA Ql (Plasma cell-free+WBC DNA) [Interp] Negative Normal [facility] Comment on above: Order Comment: Speci madhuri Type: BLOOD SPECIMENOrdering Facility: [facility] Address: [address] [place] [address] Performed By: #### M AT21 ####[facility] LABCLIA [id number] [place] [id number] NUCHAL TRANSLUCENCY WHIon [facility] RUBELLA IGG ABon 03-25-2023 RUBELLA IGG AB, QUAL Positive Normal Positive [facility] Comment on above: Order Comment: Speci men Type: BLOOD SPECIMENOrdering Facility: [facility] Address: [address] [place] [address] Result Comment: The result suggests recent or past exposure to Rubella virus or history of Rubella vaccination. Positive result may also be seen due to presence of passively-transferred antibodies. Please correlate with patient's history. Performed By: #### R UBIGG ####[facility] LABCLIA [id number] [facility] [id number] [address] [place] Reagin and Treponema pallidu m IgG and IgM [Interp]on 03-25-2023 SYPHILIS INTERPRETATION Cannot exclude recent Treponemal infection if specimen collected within 7-10 days after appearance of suspect lesions or 2-3 weeks after an exposure. Clinical correlation is required. Normal [facility] Comment on above: Order Comment: Sudhiri men Type: BLOOD SPECIMENOrdering Facility: [facility] Address: [address] [place] [address] Performed By: #### 5 195-3, 66663-5, 18318-4 ####[facility] LABCLIA [id number] [place] [address] [place] T. pallidum IgG+IgM IA Ql (S) Non-Reactive Normal Nonreactive [facility] Comment on above: Order Comment: Speci men Type: BLOOD SPECIMENOrdering Facility: [facility] Address: [address] [place] [address] Performed By: #### 5 195-3, 77824-2, 72833-8 ####[facility] LABCLIA [id number] [place] [address] [place] TSH SerPl-aCncon 03-25-2023 TSH Qn 2.080 m[IU]/L Normal 0.270-4.[address] [facility] Comment on above: Order Comment: Ambrosio dhaliwal Type: BLOOD SPECIMENOrdering Facility: [facility] Address: [address] [place] [address] Result Comment: If t he patient is , TSH reference range varies by gestational period: First Trimester (weeks 9-12): 0.180-2.990 mIU/L Second Trimester: 0.110-3.980 mIU/L Third Trimester: 0.480-4.710 mIU/L Ed Gandhi et al. A Practical Approach for the Verifications and Determination of Site- and Trimester-Specific Reference Intervals for Thyroid Function tests in . Thyroid, 2019:29:3:412-420. Misha Williamson, et al. 2017 Guidelines of the [place] Thy[employer] Association for the Diagnosis and Management of Thyroid Disease during and the . Thyroid, 2017:27:3:315-389. Performed By: #### 3 016-3 ####[facility] LABCLIA [id number] [place] [address] [place] TYPE + SCREEN PRENATALon ABO A Normal [facility] Comment on above: Order Comment: Speci men Type: BLOOD SPECIMEN [facility]ing Facility: [facility] Address: [address] [place] [address] Performed By: #### T SPN #### [facility] CLIA [id number] [address] [place] [address] [place] HISTORICAL AB SCR STATUS Negative Normal [facility] Comment on above: Order Comment: Speci men Type: BLOOD SPECIMEN Ordering Facility: [facility] Address: [address] [place] [address] Performed By: #### T SPN #### [facility] CLIA [id number] [address] [place] [address] [place] Rh Nom (Bld) Positive Normal [facility] Comment on above: Order Comment: Speci men Type: BLOOD SPECIMEN [facility]ing Facility: [facility] Address: [address] [place] [address] Performed By: #### T SPN #### [facility] CLIA [id number] [address] [place] [address] [place] TYPE AND SCREEN EXPIRATION 03/28/2023 23:[address] [facility] Comment on above: Order Comment: Speci men Type: BLOOD SPECIMEN Ordering Facility: [facility] Address: [address] [address] Performed By: #### T SPN #### [facility] CLIA [id number] [address] [place] [address] [place] URINE OB DIP B/Oon 3 Glucose Ql (U) Negative Neg mg/dL [facility] Protein.monoclonal (U) [Mass/Vol] Negative Neg mg/dL [facility] CNPNon 03-10-2023 CNPN Telephone (OBGFVC) ERICA TORO ([id number]) 1995 F Date Time Provider Department 03/10/23 [...] tablet by mouth daily at bedtime. - [id number] ps-folate 1 29 mg iron- 1 mg [...] Encounter Status:Closed by KARI KINNEY on 03/10/23 [facility] Cara 03-04-2023 CNPN Telephone (OBGYWM) ERICA TORO ([id number]) 1995 F Date Time Provider Department 03/04/23 DULCE SHANNON During your visit today, we recorded the following information about you: Allergies As of Date: 03/04/2023 (No Known Allergies) Date Reviewed: 02/18/2023 Reviewed by: Félix Knight Cma - Fully Assessed Reason for Visit: Orders [681] Primary Visit Diagnosis: with uncertain viability, single or unspecified fetus [O36.80X0] Order(s):OBSTETRIC ULTRASOUND WHI [[id number]] Order #: [id number]: 1 FUTURE Prescriptions as of 03/04/2023 - Lactobacillus acidophilus (FLORAJEN ACIDOPHILUS) 20 billion cell cap Take 1 capsule by mouth once daily. - doxylamine (UNISOM, DOXYLAMINE,) 25 mg tab Take 1 tablet by mouth daily at bedtime. - lg04-bqni ps-folate 1 29 mg iron- 1 mg [...] Status:Closed by DULCE SHANNON on 03/04/[address] [facility] OBSTETRIC ULTRASOUND WHIon 0 03-04-2023 [facility] CNPNon 02-26-2023 CNPN Telephone (OBGYWM) ERICA TORO ([id number]) 1995 F Date Time Provider Department 02/26/23 [...] answer and unable to leave a message. Trellise message sent to patient. Marii Gonsales RN 03/02/2023 10:44 AM Signed Attempted to contact patient again. No answer and unable to leave a message as voicemail box is not set up. Patient has not read Trellise message either. Upcoming appointment notes updated to [...] tablet by mouth daily at bedtime. - [id number]-[id number] ps-folate 1 29 mg iron- 1 mg [...] Status:Closed by MARII GONSALES RN on 03/02/23 [facility] Cara 02-23-2023 CNPN Telephone (OBGYWM) CORTEZERICA Joaquin ([id number]) 1995 F Date Time Provider Department 02/23/23 MARITZA RICHARD During your visit today, we recorded the following information about you: Anahy Wood RN 02/23/2023 3:03 PM Addendum ----- Message from Maritza Richard APRN.CNM sent at 02/23/2023 11:45 AM EDT ----- Trellise message sent to patient for BV treatment. [...] PM Signed Patient has not logged into [employer] in over 1 year. Attempted to call [...] tablet by mouth daily at bedtime. - yg06-bqvx ps-folate 1 29 mg iron- 1 mg [...] by ANAHY WOOD RN on 02/24/[address] [facility] BACTERIAL VAGINOSIS AMPLIFIC ATIONon 02-18-2023 Lactobacillus crispatus+gasseri+jense reema + Gardnerella vaginalis + Atopobium vaginae rRNA ODILON+probe Ql (Vag fld) Positive Abnormal Negative for bacterial vaginosis [facility] Comment on above: Order Comment: Speci men Type: SWABOrdering Facility: [facility] Address: [address] [place] [address] Performed By: #### Donny SAUNDERS CVTV ####[facility] LABCLIA [id number] [place] [address] [place] Bacteria Ur Culton 3 Bacteria identified Cx Nom (U) CULTURE, URINE: No growth (<1,000 CFU/ml) Normal [facility] Comment on above: Performed By: #### 6 30-4 ####[facility] LABCLIA [id number] [place] [address] [place] C. trachomatis+N. gonorrhoea e DNA ODILON+probe Ql (Unsp spec)on 02-18-2023 C. trachomatis DNA ODILON+probe Ql (Unsp spec) Negative Normal Negative for Chlamydia trachomatis by amplificaton [facility] Comment on above: Order Comment: Speci men Type: SWABOrdering Facility: [facility] Address: [address] [place] [address] Performed By: #### 3 6902-5 ####[facility] LABCLIA [id number] [place] [address] [place] N. gonorrhoeae DNA ODILON+probe Ql (Unsp spec) Negative Normal Negative for Neisseria gonorrhoeae by amplification [facility] Comment on above: Order Comment: Speci men Type: SWABOrdering Facility: [facility] Address: [address] [place] [address] Performed By: #### 3 6902-5 ####[facility] LABCLIA [id number] [place] [address] [place] FRANCESCO / TRICHOMONAS AMPLIF ICATIONon 02-18-2023 FRANCESCO / TRICHOMONAS AMPLIFICATION FRANCESCO SPECIES GROUP RNA: Negative for Francesco species FRANCESCO GLABRATA RNA: Negative for Francesco glabrata TRICH VAG AMPLIFICATION RNA: Negative for Trichomonas vaginalis by amplification Normal [facility] Comment on above: Performed By: #### B VAMP, CVTV ####[facility] LABCLIA [id number] [address] OF [facility] HPV W/GENOTYPE THIN PREPon 0 02-18-2023 HPV 16 Ag Ql (Unsp spec) Negative Normal Negative for HPV DNA high risk type 16 by PCR [facility] Comment on above: Order Comment: Speci men Type: FLUID SPECIMENOrdering Facility: [facility] Address: [address] [place] [address] Performed By: #### H PVHRT, [id number] ####[facility] LABCLIA [id number] [address] [place] HPV 18 Ag Ql (Unsp spec) Negative Normal Negative for HPV DNA high risk type 18 by PCR [facility] Comment on above: Order Comment: Speci men Type: FLUID SPECIMENOrdering Facility: [facility] Address: [address] [place] [address] Performed By: #### H PVHRT, [id number] ####[facility] LABCLIA [id number] [address] [place] HPV 31+33+35+39+45+51+52+56 +58+59+66+68 DNA ODILON+probe Ql (Cvx) Positive for one or more of the following HPV DNA high risk types:31,33,35,39,45 ,51,52,56,58,59,66,6 8 by PCR Abnormal Negative for HPV DNA high risk types: 31,33,35,39,45,5 1,52,56,58,59,66 ,[address] [facility] Comment on above: Order Comment: Speci men Type: FLUID SPECIMENOrdering Facility: [facility] Address: [address] [place], [place] [id number] Performed By: #### H PVHRT, [id number] ####[facility] LABCLIA [id number] [place] [address] [place] PAP TESTon 02-18-2023 CASE REPORT Normal [facility] Comment on above: Order Comment: Speci men Type: FLUID SPECIMENOrdering Facility: [facility] Address: [address] [place] [address] Result Comment: Gyne cologic Cytology Report Case: [id number] Authorizing Provider: Maritza Richard APRN.CNM Collected: 02/18/2023 03:39 PM Ordering Location: OB/Gynecology Received: 02/18/2023 04:57 PM First Screen: Cathy Cosby, CT, ASCP Pathologist: Jessica Vazquez MD Specimen: Pap Test, ThinPrep, Cervix Performed By: #### H PVHRT, [id number] ####[facility] LABCLIA [id number] [place] [address] [place] CLINICAL HISTORY, CYTOLOGY, 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 (Indicate Weeks) Normal [facility] Comment on above: Order Comment: Speci men Type: FLUID SPECIMENOrdering Facility: [facility] Address: [address] [place] [address] Performed By: #### H PVHRT, [id number] ####[facility] LABCLIA [id number] [place] [address] [place] CYTOLOGY INTERPRETATION PAP Abnormal [facility] Comment on above: Order Comment: Speci men Type: FLUID SPECIMENOrdering Facility: [facility] Address: [address] [place] [address] Result Comment: Epit helial cell abnormality. Atypical squamous cells of undetermined significance (ASC-US) Performed By: #### H PVHRT, [id number] ####[facility] LABCLIA [id number] [address] [place] FINAL DIAGNOSIS A - Cervix Normal [facility] Comment on above: Order Comment: Speci men Type: FLUID SPECIMENOrdering Facility: [facility] Address: [address] [place] [address] Result Comment: Sati sfactory for interpretation Epithelial cell abnormality. Atypical squamous cells of undetermined significance (ASC-US) Predominance of coccobacilli consistent with shift in vaginal natalie Performed By: #### H PVHRT, [id number] ####[facility] LABCLIA [id number] [address] [place] FINAL PERFORMING LAB Normal [facility] Comment on above: Order Comment: Speci men Type: FLUID SPECIMENOrdering Facility: [facility] Address: [address] [address] Result Comment: Tech nical component, corridor redevelopment manager screening performed at [facility], [address] [place] [address] CLIA# [id number] Diagnostic interpretation performed at [facility], [address] [place] [address] CLIA# [id number] Inshore Undersea Warfare Officer: Russell Davila M.D. Performed By: #### H PVHRT, [id number] ####[facility] LABCLIA [id number] [place] [address] [place] HPV REFLEX HPV if ASCUS Normal [facility] Comment on above: Order Comment: Speci men Type: FLUID SPECIMENOrdering Facility: [facility] Address: [address] Performed By: #### H PVHRT, [id number] ####[facility] LABCLIA [id number] [place] [address] [place] LMP 12/22/2022[unknown Normal [facility] Comment on above: Order Comment: Speci men Type: FLUID SPECIMENOrdering Facility: [facility] Address: [address] [place] [address] Performed By: #### H PVHRT, [id number] ####[facility] LABCLIA [id number] [address] PAP DISCLAIMER COMMENT The Pap Smear is a screening test for cervical cancer. False negative results occur with all screening tests, emphasizing the need for rescreening at recommended intervals, and clinical correlation. Normal [facility] Comment on above: Order Comment: Speci men Type: FLUID SPECIMENOrdering Facility: [facility] Address: [address] [place] [address] Performed By: #### H PVHRT, [id number] ####[facility] LABCLIA [id number] [address] [place] PAP HOME HEALTH CARE CASE MANAGER COMMENT This specimen has been analyzed by the ThinPrep Imaging System, an automated imaging and review system, which assists the laboratory in evaluating cells on ThinPrep Pap tests. Following automated imaging, selected buitrago from every slide are reviewed by a corridor redevelopment manager. Normal [facility] Comment on above: Order Comment: Speci men Type: FLUID SPECIMENOrdering Facility: [facility] Address: [address] [place] [address] Performed By: #### H PVHRT, [id number] ####[facility] LABCLIA [id number] [address] [place] HCG QUAL UR B/Oon 03-06-2022 status Negative neg - pos [facility] Quality Check Yes [facility] EKG 12 Lead - Chest Painon 1 12-08-2019 [facility] Test Date: 2020-10-05 Pat Name: Erica Toro Department: ED Room: 06 Gender: F Bar Turner: SENG : 1995 Requested By: PEGGY ARANDA Order Number: [id number] Reading MD: Macario Caro Measurements Intervals O'Brien Rate: 124 P: 67 [place]: 128 QRS: -26 QRSD: 102 T: 65 QT: 340 QTc: 489 Interpretive Statements SINUS TACHYCARDIA BORDERLINE LEFT AXIS DEVIATION BORDERLINE PROLONGED QT INTERVAL Electronically Signed On 10-07-2020 8:02:46 EST by Macario [place], [place] Cal [facility] Incoming Cardiology Results From [facility] - 10/07/2020 8:03 AM EST [facility] Test Date: 2020-10-05 Pat Name: Erica Toro Department: ED Room: 06 Gender: F Bar Turner: SENG : 1995 Requested By: PEGGY ARANDA Order Number: [id number] Reading MD: Macario Caro Measurements Intervals O'Brien Rate: 124 P: 67 [place]: 128 QRS: -26 QRSD: 102 T: 65 QT: 340 QTc: 489 Interpretive Statements SINUS TACHYCARDIA BORDERLINE LEFT AXIS DEVIATION BORDERLINE PROLONGED QT INTERVAL Electronically Signed On 10-07-2020 8:02:46 EST by Macario [place] Hemoglobin A1Con 10-07-2020 HbA1c (Bld) [Mass fraction] 4.4 % Normal 4.0-6.0 [facility] Comment on above: Result Comment: --Hg bA1C levels may not be accurate in patients who have renal disease, received recent blood transfusions, are anemic, or who have dyshemoglobinemia. Performed By: #### H A1C2, LIPD2 #### [facility] [address] [place] [address] HbA1c (Bld) [Mass fraction] 80 mg/dL Normal [facility] Comment on above: Performed By: #### H A1C2, LIPD2 #### [facility] [address] [place] [address] Hemoglobin A1con 10-07-2020 eAG 80 mg/dL [place], [place] HbA1c (Bld) [Mass fraction] 4.4 % 4 - 6 % [place] Comment on above: --HgbA1C levels may not be accurate in patients who have renal disease, received recent blood transfusions, are anemic, or who have dyshemoglobinemia. Lipid Panelon 10-07-2020 Cholesterol [Mass/Vol] 196 mg/dL Normal < 200 [facility] Comment on above: Performed By: #### H A1C2, LIPD2 #### [facility] [address] [place] [address] Cholesterol in HDL [Mass/Vol] 90 mg/dL High 40-60 [facility] Comment on above: Performed By: #### H A1C2, LIPD2 #### [facility] [address] [place] [address] Cholesterol.total/Elif sterol in HDL [Mass ratio] 2 Normal [facility] Comment on above: Result Comment: Ref Range: < 3 Low Risk for CHD 3-6 Mod Risk for CHD > 6 High Risk for CHD Performed By: #### H A1C2, LIPD2 #### [facility] [employer] [facility] [address] [place] [address] Protein [Mass/Vol] 87 mg/dL Normal <100 [facility] Comment on above: Performed By: #### H A1C2, LIPD2 #### [facility] [employer] [facility] [address] [place] [address] Triglyceride [Mass/Vol] 93 mg/dL Normal <150 [facility] Comment on above: Performed By: #### H A1C2, LIPD2 #### [facility] [employer] [facility] [address] [place] [address] Lipid panel - fastingon 09-24 Cholesterol [Mass/Vol] 196 mg/dL <200 [place], [place] Cholesterol in HDL [Mass/Vol] 90 mg/dL High 40 - 60 mg/dL [place] Cholesterol in LDL [Mass/Vol] 87 mg/dL <100 [place] Cholesterol.total/Elif sterol in HDL [Mass ratio] 2 {ratio} [place] Comment on above: Ref Range: < 3 Low Risk for CHD 3-6 Mod Risk for CHD > 6 High Risk for CHD Interpretation and review of laboratory results Abnormal [place] Triglyceride [Mass/Vol] 93 mg/dL <150 [place] Otheron 10-07-2020 Test Performed by [facility] [employer] [facility], [address] [place] [address] [place], [place] SARS-CoV-2 (MICRO DEPT)on SARS-CoV-2 (MICRO DEPT) SARS-CoV-2 --> Status: F Not Detected. Expected Result: Not Detected _ Real-time, RT-PCR performed on the [employer] System by the [facility] Microbiology Service. Negative results do not preclude SARS-CoV-2 infection and should not be used as the sole basis for treatment or other patient management decisions. This assay was developed by [employer] and distributed under an Emergency Use Authorization (EUA) granted by the FDA for the qualitative detection of SARS-CoV-2 nucleic acid. Expected Result: Not Detected _ Real-time, RT-PCR performed on the [employer] System by the [facility] Microbiology Service. Negative results do not preclude SARS-CoV-2 infection and should not be used as the sole basis for treatment or other patient management decisions. This assay was developed by [employer] and distributed under an Emergency Use Authorization (EUA) granted by the FDA for the qualitative detection of SARS-CoV-2 nucleic acid. Normal [facility] Comment on above: Performed By: #### A OEG2 #### [facility] [address] [place] [address] Basic Metabolic Panelon 12 Anion gap [Moles/Vol] 11 Normal [facility] Comment on above: Performed By: #### B MP3, HEMDF, ETOH4, LFT3 #### [facility] [address] [place] [place] [address] CO2 [Moles/Vol] 25 mmol/L Normal 22-30 [facility] Comment on above: Performed By: #### B MP3, HEMDF, ETOH4, LFT3 #### [facility] [address] [place] [address] Creatinine [Mass/Vol] 0.65 mg/dL Normal 0.52-1.25 [facility] Comment on above: Performed By: #### B MP3, HEMDF, ETOH4, LFT3 #### [facility] [address] [place] [address] GFR/1.73 sq M predicted among blacks MDRD (S/P/Bld) [Vol rate/Area] mL/min/{1.73_m2} Normal >60 [facility] Comment on above: Performed By: #### B MP3, HEMDF, ETOH4, LFT3 #### [facility] [address] [place] [place] [address] GFR/1.73 sq M predicted among non-blacks MDRD (S/P/Bld) [Vol rate/Area] mL/min/{1.73_m2} Normal >60 [facility] Comment on above: Result Comment: KDIG O [...] #### B MP3, HEMDF, ETOH4, LFT3 #### [facility] [address] [place] [place] [address] Chloride [Moles/Vol] 108 mmol/L High 98-107 [facility] Comment on above: Performed By: #### B MP3, HEMDF, ETOH4, LFT3 #### [facility] [address] [place] [address] Potassium [Moles/Vol] 3.6 mmol/L Normal 3.5-5.1 [facility] Comment on above: Performed By: #### B MP3, HEMDF, ETOH4, LFT3 #### [facility] [address] [place] [address] Sodium [Moles/Vol] 145 mmol/L Normal 135-145 [facility] Comment on above: Performed By: #### B MP3, HEMDF, ETOH4, LFT3 #### [facility] [address] [place] [address] Calcium [Mass/Vol] 9.2 mg/dL 8.4 - 10.4 mg/dL [facility] Comment on above: Performed By: #### B MP3, HEMDF, ETOH4, LFT3 #### [facility] [address] [place] [address] Glucose [Mass/Vol] 83 mg/dL 70 - 100 mg/dL [facility] Comment on above: Performed By: #### B MP3, HEMDF, ETOH4, LFT3 #### [facility] [address] [place] [address] Urea nitrogen [Mass/Vol] 7 mg/dL 7 - 20 mg/dL [facility] Comment on above: Performed By: #### B MP3, HEMDF, ETOH4, LFT3 #### [facility] [address] [place] [address] Anion gap [Moles/Vol] 11 mmol/L [place], [place] Chloride [Moles/Vol] 108 mmol/L High 98 - 107 mmol/L [place] CO2 [Moles/Vol] 25 mmol/L 22 - 30 mmol/L [place] Creatinine [Mass/Vol] 0.65 mg/dL 0.52 - 1.25 mg/dL [place], [place] EGFR IF NonAfrican [place]raini >90.0 >60 mL/min [place], [place] Comment on above: KDIGO guidelines pro [...] MDRD (S/P/Bld) [Vol rate/Area] mL/min/{1.73_m2} >60 mL/min [place] Potassium [Moles/Vol] 3.6 mmol/L 3.5 - 5.1 mmol /L [place], [place] Sodium [Moles/Vol] 145 mmol/L 135 - 145 mmol/L [place] COVID-19on 10-05-2020 SARS-CoV-2 Not Detected. Not Detected [place] Comment on above: Not Detected. Expected Result: Not Detected _ Real-time, RT-PCR performed on the [employer] System by the [facility] Microbiology Service. Negative results do not preclude SARS-CoV-2 infection and should not be used as the sole basis for treatment or other patient management decisions. This assay was developed by [employer] and distributed under an Emergency Use Authorization (EUA) granted by the FDA for the qualitative detection of SARS-CoV-2 nucleic acid. [facility], [address] [place] [address] Drugs of Abuseon 10-05-2020 Methadone, Ur Negative Normal [facility] Comment on above: Performed By: #### D SHRUTI, HCGKALEN #### [facility] [address] [place] [address] Phencyclidine (PCP), Ur Negative Normal [facility] Comment on above: Result Comment: The [...] Performed By: #### D RGA4, HCGUR #### [facility] [address] [place] [address] Cocaine, Ur Negative Normal [facility] Comment on above: Performed By: #### D RGA4, HCGUR #### [facility] [address] [place] [address] Amphetamines, Ur Negative Normal [facility] Comment on above: Performed By: #### D RGA4, HCGUR #### [facility] [address] [place] [address] Opiates, Ur Negative Normal [facility] Comment on above: Performed By: #### D RGA4, HCGUR #### [facility] [address] [place] [address] Benzodiazepines, Ur Negative Normal [facility] Comment on above: Performed By: #### D RGA4, HCGUR #### [facility] [address] [place] [address] Barbiturates, Ur Negative Normal [facility] Comment on above: Performed By: #### D RGA4, HCGUR #### [facility] [address] [place] [address] Oxycodone/Oxymorphine,U r Negative Normal [facility] Comment on above: Performed By: #### D RGA4, HCGUR #### [facility] [address] [place] [address] Ethanolon 10-05-2020 Ethanol Lvl >0.300 High 0 - 0.01 g/dL [place], [place] Comment on above: NOTE: This result is for medical treatment only. Analysis performed using non-forensic procedures. Interpretation and review of laboratory results Abnormal [place], [place] Test Performed by [facility], [address] , [place], [place] [address] [place] [address] Ethanol Serum/Plasmaon 10-05 Ethanol-Serum/Plasma > 0.300 High 0.000-0.010 [facility] Comment on above: Result Comment: NOTE : This result is for medical treatment only. Analysis performed using non-forensic procedures. Performed By: #### B MP3, HEMDF, ETOH4, LFT3 #### [facility] [address] [place] [id number] HCG,Urine Qualon 10-05-2020 Beta HCG ( test) Ql (U) Negative Normal Negative [facility] Comment on above: Result Comment: Preg luis daniel is the most common reason for HCG in urine, although choriocarcinoma, hydatidiform mole, and certain nontropho- blastic malignancies also result in detectable urinary HCG levels. Sensitivity = 20mIU/mL. Performed By: #### D RGA4, HCGUR #### [facility] [address] [place] [address] HGC Urine Qual [place] 2019 Beta HCG ( test) Ql (U) Negative Negative NA [place], [place] Comment on above: is the mos t common reason for HCG in urine, although choriocarcinoma, hydatidiform mole, and certain nontropho- blastic malignancies also result in detectable urinary HCG levels. Sensitivity = 20mIU/mL. Test Performed by [facility], [address] , [place], [place] [address] [place], [place] Hemogram (CBC) w/Auto Diffon 10-05-2020 Absolute Baso # 0.1 10*3/uL 0 - 0.2 10*3/uL [place], [place] Absolute Neut # 2.9 10*3/uL 1.8 - 7 10*3/uL [place], [place] Basophils/100 WBC (Bld) 2.0 % 0 - 2 % [place] Eosinophils (Bld) [#/Vol] 0.2 10*3/uL 0 - 0.5 10*3/uL [place] Eosinophils/100 WBC (Bld) 2.7 % 1 - 6 % [place] Erythrocyte distribution width (RBC) [Ratio] 14.0 % 11.5 - 14.5 % [place] Granulocytes/100 WBC (Bld) 50.4 % 40 - 80 % [place] Hematocrit (Bld) [Volume fraction] 44.0 % 35 - 47 % [place] Hemoglobin (Bld) [Mass/Vol] 14.8 g/dL 11.7 - 16 g/dL [place] Interpretation and review of laboratory results Abnormal [place] Lymphocytes (Bld) [#/Vol] 1.8 10*3/uL 1 - 4.3 10*3/uL [place] Lymphocytes/100 WBC (Bld) 32.0 % 20 - 40 % [place] MCH (RBC) [Entitic mass] 29.9 pg 26 - 34 pg [place] MCHC (RBC) [Mass/Vol] 33.6 % 32 - 36 % [place] MCV (RBC) [Entitic vol] 88.9 fL 79 - 98 fL [place], [place] Monocytes (Bld) [#/Vol] 0.7 10*3/uL 0 - 0.8 10* 3/uL [place], [place] Monocytes/100 WBC (Bld) 12.9 % High 2 - 10 % [place], [place] Platelet mean volume (Bld) [Entitic vol] 9.1 fL 7.4 - 10.4 fL [place] Platelets (Bld) [#/Vol] 195 10*3/uL 140 - 440 10*3/uL [place] RBC (Bld) [#/Vol] 4.95 10*6/uL 3.8 - 5.2 10*6/uL [place] WBC (Bld) [#/Vol] 5.8 10*3/uL 3.6 - 10.7 10*3/uL [place] Test Performed by [facility], [address] , [address] Hemogram w/ Autodiffon 10-05 Abs Baso Cnt 0.1 10*3/uL Normal 0.0-0.2 [facility] Comment on above: Performed By: #### B MP3, HEMDF, ETOH4, LFT3 #### [facility] [address] [place] [address] Abs Neutrophile Cnt 2.9 10*3/uL Normal 1.8-7.0 [facility] Comment on above: Performed By: #### B MP3, HEMDF, ETOH4, LFT3 #### [facility] [address] [place] [address] Basophils/100 WBC (Bld) 2.0 % Normal 0.0-2.[address] [facility] Comment on above: Performed By: #### B MP3, HEMDF, ETOH4, LFT3 #### [facility] [address] [place] [address] Eosinophils (Bld) [#/Vol] 0.2 10*3/uL Normal 0.0-0.5 [facility] Comment on above: Performed By: #### B MP3, HEMDF, ETOH4, LFT3 #### [facility] [address] [place] [address] Eosinophils/100 WBC (Bld) 2.7 % Normal 1.0-6.0 [facility] Comment on above: Performed By: #### B MP3, HEMDF, ETOH4, LFT3 #### [facility] [address] [place] [address] Erythrocyte distribution width (RBC) [Ratio] 14.0 % Normal 11.5-14.5 [facility] Comment on above: Performed By: #### B MP3, HEMDF, ETOH4, LFT3 #### [facility] [address] [place] [address] Granulocytes/100 WBC (Bld) 50.4 % Normal 40.0-80.0 [facility] Comment on above: Performed By: #### B MP3, HEMDF, ETOH4, LFT3 #### [facility] [address] [place] [address] Hematocrit (Bld) [Volume fraction] 44.0 % Normal 35.0-47.0 [facility] Comment on above: Performed By: #### B MP3, HEMDF, ETOH4, LFT3 #### [facility] [address] [place] [address] Hemoglobin (Bld) [Mass/Vol] 14.8 g/dL Normal 11.7-16.0 [facility] Comment on above: Performed By: #### B MP3, HEMDF, ETOH4, LFT3 #### [facility] [address] [place] [address] Lymphocytes (Bld) [#/Vol] 1.8 10*3/uL Normal 1.0-4.3 [facility] Comment on above: Performed By: #### B MP3, HEMDF, ETOH4, LFT3 #### [facility] [address] [place] [address] Lymphocytes/100 WBC (Bld) 32.0 % Normal 20.0-40.0 [facility] Comment on above: Performed By: #### B MP3, HEMDF, ETOH4, LFT3 #### [facility] [address] [place] [address] MCH (RBC) [Entitic mass] 29.9 pg Normal 26.0-34.0 [facility] Comment on above: Performed By: #### B MP3, HEMDF, ETOH4, LFT3 #### [facility] [address] [place] [address] MCHC (RBC) [Mass/Vol] 33.6 % Normal 32.0-36.0 [facility] Comment on above: Performed By: #### B MP3, HEMDF, ETOH4, LFT3 #### [facility] [address] [place] [address] MCV (RBC) [Entitic vol] 88.9 fL Normal 79.0-98.0 S [facility] Comment on above: Performed By: #### B MP3, HEMDF, ETOH4, LFT3 #### [facility] [address] [place] [address] Monocytes (Bld) [#/Vol] 0.7 10*3/uL Normal 0.0-0.8 [facility] Comment on above: Performed By: #### B MP3, HEMDF, ETOH4, LFT3 #### [facility] [address] [place] [address] Monocytes/100 WBC (Bld) 12.9 % High 2.0-10.0 [facility] Comment on above: Performed By: #### B MP3, HEMDF, ETOH4, LFT3 #### [facility] [address] [place] [address] Platelet mean volume (Bld) [Entitic vol] 9.1 fL Normal 7.4-10.4 [facility] Comment on above: Performed By: #### B MP3, HEMDF, ETOH4, LFT3 #### [facility] [address] [place] [address] Platelets (Bld) [#/Vol] 195 10*3/uL Normal 140-440 [facility] Comment on above: Performed By: #### B MP3, HEMDF, ETOH4, LFT3 #### [facility] [address] [place] [address] RBC (Bld) [#/Vol] 4.95 10*6/uL Normal 3.80-5.20 [facility] Comment on above: Performed By: #### B MP3, HEMDF, ETOH4, LFT3 #### [facility] [address] [place] [address] WBC (Bld) [#/Vol] 5.8 10*3/uL Normal 3.6-10.7 [facility] Comment on above: Performed By: #### B MP3, HEMDF, ETOH4, LFT3 #### [facility] [address] [place] [address] Hepatic Functionon 0 Bilirubin [Mass/Vol] 0.2 mg/dL Normal 0.2-1.3 [facility] Comment on above: Performed By: #### B MP3, HEMDF, ETOH4, LFT3 #### [facility] [address] [place] [address] Bilirubin.direct [Mass/Vol] 0.0 mg/dL Normal 0.0-0.3 [facility] Comment on above: Performed By: #### B MP3, HEMDF, ETOH4, LFT3 #### [facility] [address] [place] [address] Protein [Mass/Vol] 7.7 g/dL Normal 6.3-8.2 [facility] Comment on above: Performed By: #### B MP3, HEMDF, ETOH4, LFT3 #### [facility] [address] [place] [address] Albumin [Mass/Vol] 4.8 g/dL Normal 3.5-5.0 [facility] Comment on above: Performed By: #### B MP3, HEMDF, ETOH4, LFT3 #### [facility] [address] [place] [address] ALP [Catalytic activity/Vol] 63 U/L 38 - 126 U/L [facility] Comment on above: Performed By: #### B MP3, HEMDF, ETOH4, LFT3 #### [facility] [address] [place] [address] ALT [Catalytic activity/Vol] 143 U/L High 0 - 34 U/L [facility] Comment on above: Result Comment: The ALT test is performed by an updated assay method. Please note that the reference intervals have been changed and are now sex specific. Performed By: #### B MP3, HEMDF, ETOH4, LFT3 #### [facility] [address] [place] [address] The ALT test is perf ormed by an updated assay method. Please note that the reference intervals have been changed and are now sex specific. AST [Catalytic activity/Vol] 160 U/L High 15 - 46 U/L [facility] Comment on above: Performed By: #### B MP3, HEMDF, ETOH4, LFT3 #### [facility] [address] [place] [address] Hepatic Function Panelon Albumin [Mass/Vol] 4.8 g/dL 3.5 - 5 g/dL [place], [place] Bilirubin Ql (U) 0.2 mg/dL 0.2 - 1.3 mg/dL [place] Bilirubin.direct [Mass/Vol] 0.0 mg/dL 0 - 0.3 mg/dL [place] Protein [Mass/Vol] 7.7 g/dL 6.3 - 8.2 g/dL [place], [place] Otheron 10-05-2020 Interpretation and review of laboratory results Abnormal [place], [place] Test Performed by [facility], [address] , [address] Urine Drug Screenon 10-05-20 20 Amphetamines, urine Negative [facility], [place] Barbiturates, Ur Negative [facility] Benzodiazepine Ur Qual Negative Me [facility], [place] Cocaine Metabolites, Ur Negative M [facility], [place] Methadone, Urine Negative [facility] Opiates, Urine Negative [facility] Oxycodone Screen, Ur Negative [facility], [place] PCP, Urine Negative [facility], [place] Comment on above: The expected value f [...] confirmation under separate order. Test [facility], [address] Bey. , [address] ED Pat Eduon 12-18-2019 ED Pat [place] [id number] Emergency Department Discharge Instructions ERICA TORO, Please [...] Servicios de Emergencia Name ERICA TORO MRN [facility]-[id number] Acct# PLEASE READ THE FOLLOWING REGARDING YOUR [...] doses are changed, or new medications (including endo-bqp-itetjse products) are added. If you have any [...] UNTIL YOU TALK TO YOUR DOCTOR None [place] [address] Emergency Department Discharge Instructions Name: ERICA TORO Current Date:12/18/2019 03:07:10 :1995 Primary Physician:Physician, PCP Unknown We would like to thank you for choosing [facility] for your emergency medical needs. We examined [...] health of those around you. Call the [place] [employer] at 4-865-AEGA-[place] or the [place] [employer] at 2-029-JXH-0112 for more information. High blood pressure: Your [...] deadly infections. Discuss this with your child's bottom bleacher, or Public Health Department. Your family practice doctor can determine if you need pneumonia or flu vaccine. The [facility] Department can be reached at . Substance Abuse Program: Concerns with addiction to alcohol, benzodiazepines (Ativan or Xanax) and Opiates (Heroin, Percocet, OxyContin, Methadone or Fentanyl)? [facility] offers an inpatient Substance Abuse Program to help treat the symptoms associated with medical detoxification of addictive substances. The new program offers care for non- adults (18 and older) looking to break the chain to addictive chemicals. The Substance Abuse Program is a voluntary inpatient admission and it starts with a pre-screening phone call to a social insurance specialist. During the call, goals and objectives for recovery and how the patient will transition to outpatient care will be established. Please call [phone] to get help today. Domestic Violence: If [...] suicide hotline, anytime day or night, at 3-005-630-CXPJ. Pharmacy Information: Below is a list of 24 hour pharmacies that we are aware of. We suggest that you call the specific pharmacy for their hours before traveling to a location. Hours may vary on holidays. [facility] Pharmacy [place] [id number] [place], [place] [phone] [address] [place], [place] [address] [phone] [address] [place], [place] [address] [phone] [address] [place], [place] [phone] [address], [place] [phone] [address] [place], [place] [phone] [place] [phone] Take all medications as directed. If you need prescription assistance, contact the following agencies: ?? Partnership for Prescription Assistance at or www.pparx.org ?? [place] [facility] at or www.REPUCOMbestrx.org ?? www.[employer] is a site with many valuable coupons [...] Patient Signature Date Time Provider Signature Normal [facility] Acetaminophen (Tylenol) Leve amy 12-17-2019 Acetaminophen [Mass/Vol] <10 Normal 10.0-30.0 [facility] Comment on above: Performed By: #### 6 9405-9, 99524-6r1, 25678-8, 51102-1, 82754-5, 81114-1, 2110-02, #### [facility], [address] [place], [place]. Alcohol (Ethanol) Levelon Ethanol [Mass/Vol] 0.20 gm/dL High 0.00-0.00 [facility] Comment on above: Performed By: #### 6 9405-9, 85777-0x0, 20520-6, 66938-6, 01577-3, 74671-3, 2110-02, #### [facility], [address] [place], [place]. CBC with Differentialon 11-26 Basophils (Bld) [#/Vol] 0.00 thou/mcL Normal 0.00-0.20 [facility] Comment on above: Performed By: #### 5 7021-8 #### [facility], [address], [place]. Basophils/100 WBC (Bld) 0.7 % Normal 0.0-2.[address] [facility] Comment on above: Performed By: #### 5 7021-8 #### [facility], [address], [place]. Eosinophils (Bld) [#/Vol] 0.20 thou/mcL Normal 0.00-0.70 [facility] Comment on above: Performed By: #### 5 7021-8 #### [facility], [facility] [place]. Eosinophils/100 WBC (Bld) 3.8 % Normal 0.0-7.0 [facility] Comment on above: Performed By: #### 5 7021-8 #### [facility], [facility] S. [facility] [place] [place]. Erythrocyte distribution width (RBC) [Entitic vol] 14.8 % Normal 11.0-14.8 [facility] Comment on above: Performed By: #### 5 7021-8 #### [facility], [address], [place]. Hematocrit (Bld) [Volume fraction] 44.2 % Normal 35.0-45.0 [facility] Comment on above: Performed By: #### 5 7021-8 #### [facility], [address], [place]. Hemoglobin (Bld) [Mass/Vol] 14.7 g/dL Normal 12.0-16.0 [facility] Comment on above: Performed By: #### 5 7021-8 #### [facility], [address] [place], [place]. Lymphocytes (Bld) [#/Vol] 1.80 thou/mcL Normal 1.00-4.80 [facility] Comment on above: Performed By: #### 5 7021-8 #### [facility], [facility] [address] [place]. Lymphocytes/100 WBC (Bld) 43.7 % Normal 22.0-44.0 [facility] Comment on above: Performed By: #### 70-8 #### [facility], [facility] [address] [place]. MCH (RBC) [Entitic mass] 29.8 Picograms Normal 27.0-34.0 [facility] Comment on above: Performed By: #### 70-8 #### [facility], [facility] [address] [place]. MCHC (RBC) [Mass/Vol] 33.3 g/dL Normal 32.0-36.0 [facility] Comment on above: Performed By: #### 70-8 #### [facility], [address] [place] [address]. MCV (RBC) [Entitic vol] 89.5 fL Normal 80.0-97.0 [facility] Comment on above: Performed By: #### 70-8 #### [facility], [facility] [address] [place]. Monocytes (Bld) [#/Vol] 0.30 thou/mcL Normal 0.00-0.90 [facility] Comment on above: Performed By: #### 70-8 #### [facility], [facility]. Monocytes/100 WBC (Bld) 7.4 % Normal 0.0-12.0 [facility] Comment on above: Performed By: #### 70-8 #### [facility], [address] [place], [place]. Neutrophils (Bld) [#/Vol] 1.80 thou/mcL Normal 1.80-7.70 [facility] Comment on above: Performed By: #### 5 7021-8 #### [facility], [address] [place], [place]. Neutrophils/100 WBC (Bld) 44.4 % Normal 40.0-70.0 [facility] Comment on above: Performed By: #### 7021-8 #### [facility], [address] [place], [place]. Platelet mean volume (Bld) [Entitic vol] 8.8 fL Normal 6.2-12.1 [facility] Comment on above: Performed By: #### 5 7021-8 #### [facility], [address] [place], [place]. Platelets (Bld) [#/Vol] 167 thou/mcL Normal 142-424 [facility] Comment on above: Performed By: #### 5 7021-8 #### [facility], [address] [place], [place]. RBC (Bld) [#/Vol] 4.94 million/mcL Normal 3.80-5.[address] [facility] Comment on above: Performed By: #### 5 7021-8 #### [facility], [address] [place]. WBC (Bld) [#/Vol] 4.1 thou/mcL Low 4.6-10.2 [facility] Comment on above: Performed By: #### 5 7021-8 #### [facility], [address] [place], [place]. Comprehensive Metabolic Pane amy 12-17-2019 Albumin [Mass/Vol] 4.0 g/dL Normal 3.5-4.8 [facility] Comment on above: Performed By: #### 6 9405-9, 85727-6k4, 67187-4, 75038-1, 14223-2, 61633-6, 0-5, 35283-0 #### [facility], [address] [place], [place]. ALP [Catalytic activity/Vol] 62 Units/L Normal 32-91 [facility] Comment on above: Performed By: #### 6 9405-9, 74796-0g9, 19000-4, 37550-1, 19879-9, 08517-4, 0-5, 58114-7 #### [facility], [address], [place]. ALT [Catalytic activity/Vol] 22 Units/L Normal 14-63 [facility] Comment on above: Performed By: #### 6 9405-9, 30876-8q5, 42389-4, 71792-6, 23516-8, 67034-5, 0-5, 37566-6 #### [facility], [address] [place], [place]. Anion gap [Moles/Vol] 10.0 mmol/L Normal 6.0-18.0 [facility] Comment on above: Performed By: #### 6 9405-9, 16506-5h1, 16852-8, 95381-8, 06079-0, 45458-9, 0-5, 73369-4 #### [facility], [address] [place], [place]. AST [Catalytic activity/Vol] 31 Units/L Normal 15-41 [facility] Comment on above: Performed By: #### 6 9405-9, 54359-2z4, 62011-0, 61731-3, 98347-9, 12698-2, 0-5, 95653-3 #### [facility], [address] [place]. Bilirubin [Mass/Vol] 0.3 mg/dL Normal 0.3-1.2 [facility] Comment on above: Performed By: #### 6 9405-9, 34633-4o2, 17898-4, 78928-5, 30620-6, 05011-6, 0-5, 58017-5 #### [facility], [address]. Calcium [Mass/Vol] 8.6 mg/dL Low 8.9-10.3 [facility] Comment on above: Performed By: #### 6 9405-9, 26021-0x3, 17365-1, 57134-0, 41391-3, 21813-9, 0-5, 01480-8 #### [facility], [address]. Chloride [Moles/Vol] 112 mmol/L High 98-107 [facility] Comment on above: Performed By: #### 6 9405-9, 81291-0v7, 74472-2, 70232-1, 40666-6, 98903-3, 0-5, 90532-3 #### [facility], [address]. CO2 [Moles/Vol] 23 mmol/L Normal 22-32 [facility] Comment on above: Performed By: #### 6 9405-9, 82028-4e9, 22467-7, 09385-2, 03074-9, 18028-2, 2109-5, 66526-7 #### [facility], [address] [place], [place]. Creatinine [Mass/Vol] 0.61 mg/dL Low 0.66-1.30 [facility] Comment on above: Performed By: #### 6 9405-9, 17918-9t8, 85583-8, 25721-9, 71774-9, 20292-6, 0-5, 90866-9 #### [facility], [address], [place]. Glucose [Mass/Vol] 88 mg/dL Normal 70-99 [facility] Comment on above: Result Comment: U pdated ADA Reference Range A normal fasting glucose concentration is less than 100 mg/dL. An impaired fasting glucose concentration is 100-125 mg/dL. A provisional diagnosis of diabetes mellitus can be made when a fasting glucose concentration is greater than 125 mg/dL. Performed By: #### 6 9405-9, 22785-2b6, 07023-4, 40485-0, 66030-5, 36701-3, 0-5, 05247-2 #### [facility], [address] [place], [place]. Potassium [Moles/Vol] 3.5 mmol/L Low 3.6-5.1 [facility] Comment on above: Performed By: #### 6 9405-9, 09591-4j3, 37766-3, 98305-5, 09623-2, 02666-8, 0-, #### [facility], [address] [place], [place]. Protein [Mass/Vol] 6.8 g/dL Normal 6.1-7.9 [facility] Comment on above: Performed By: #### 6 9405-9, 74153-6d6, 22605-2, 04676-3, 67920-1, 70712-6, 0-5, 92684-9 #### [facility], [address] [place], [place]. Sodium [Moles/Vol] 145 mmol/L Normal 136-145 [facility] Comment on above: Performed By: #### 6 9405-9, 78562-6i1, 67786-1, 87466-5, 74072-5, 51150-7, 0-5, 75973-5 #### [facility], [address] [facility] [facility]. Urea nitrogen (BldV) [Mass/Vol] 4 mg/dL Low 8-20 [facility] Comment on above: Performed By: #### 6 9405-9, 47715-4r0, 86675-5, 83701-6, 07463-9, 38535-5, 2110-5, 75146-7 #### [facility], [address]. Drug Abuse Screen 8 Urineon 12-17-2019 Amphetamines Ql (U) Negative Normal [facility] Comment on above: Performed By: #### 5 7021-8 #### [facility], [address]. Barbiturates Screen Ql (U) Negative Normal [facility] Comment on above: Performed By: #### 5 7021-8 #### [facility], [address] [place] [address], [place]. Benzodiazepines cutoff Screen (U) [Mass/Vol] Positive Abnormal [facility] Comment on above: Result Comment: Conf irmatory testing available upon request. Performed By: #### 5 7021-8 #### [facility], [address] [place], [place] [address], [place]. Cocaine Ql (U) Negative Normal [facility] Comment on above: Performed By: #### 5 7021-8 #### [facility], [address] [place], [place] [address], [place]. Interpretation and review of laboratory results Negative Normal [facility] Comment on above: Performed By: #### 5 7021-8 #### [facility], [address] [facility]. Methadone Screen Ql (U) Negative Normal NEGA TIVE-NEGATIV E [facility] Comment on above: Performed By: #### 5 7021-8 #### [facility], [address]. Opiates Screen Ql (U) Negative Normal [facility] Comment on above: Result Comment: INTE [...] ONLY. Performed By: #### 5 7021-8 #### [facility], [address] [place] [address]. Tetrahydrocannabinol Screen Ql (U) Positive Abnormal [facility] Comment on above: Result Comment: Conf irmatory testing available upon request. Performed By: #### 5 7021-8 #### [facility], [address] [place] [address]. GFRaaon 12-17-2019 GFR/1.73 sq M predicted among blacks MDRD (S/P/Bld) [Vol rate/Area] mL/min/{1.73_m2} Normal [facility] Comment on above: Result Comment: The MDRD equation has not been validated for those over 70 years, women, patients with serious co-morbid conditions, or with extremes of body size, muscle mass of nutritional status. Performed By: #### 6 9405-9, 22735-9f2, 87663-1, 68779-1, 16104-6, 26247-0, 2110-5, 21405-1 #### [facility], [address] [place], [place]. GFRbbon 12-17-2019 GFR/1.73 sq M predicted among non-blacks MDRD (S/P/Bld) [Vol rate/Area] mL/min/{1.73_m2} Normal [facility] Comment on above: Performed By: #### 6 9405-9, 23309-1m0, 09459-0, 05657-8, 70907-3, 85175-4, 2110-02, #### [facility], [address] [place], [place]. HCG Qualitativeon 12-17-2019 HCG ( test) Ql <[address] [facility] Comment on above: Result Comment: Nega tive 0 to LESS THAN 5 mIU/ML Positive GREATER THAN OR EQUAL TO 5 mIU/ML Performed By: #### 6 9405-9, 26849-5e3, 66647-5, 53872-2, 63260-1, 53382-2, 2110-02, #### [facility], [address] [place], [place]. Magnesium Levelon 12-17-2019 Magnesium [Mass/Vol] 1.9 mg/dL Normal 1.8-2.5 [facility] Comment on above: Performed By: #### 6 9405-9, 01453-4w2, 82844-4, 99601-8, 12363-3, 93712-6, 2110-02, #### BACILIOAbdulazizRADU [facility], [address] [place], [place]. Pre-Arrival Formon 0 Pre-Arrival Form Pre-Arrival [...] 100%, 100 HR Medications Given: Comments: Normal [facility] Salicylate Levelon 0 Salicylates [Mass/Vol] mg/dL Normal 2.8-30.0 [facility] Comment on above: Performed By: #### 6 9405-9, 21744-9z1, 68652-0, 72536-1, 91382-7, 03798-2, 2110-5, 35398-4 #### [facility], [facility] [place]. Acetaminophenon 10-05-2019 Acetaminophen [Mass/Vol] <2 Low 10-30 [facility] Comment on above: Performed By: #### A CTMN #### [facility] [address] [place] [address] Alcohol, Serumon 10-05-2019 Alcohol, Serum 180 mg/dL Normal [facility] Comment on above: Performed By: #### A LC #### [place] [address] Comprehensive Panelon 2018 ALP [Catalytic activity/Vol] 96 U/L Normal 45-117 [facility] Comment on above: Performed By: #### P 14 #### [address] [address] Bilirubin [Mass/Vol] 0.3 mg/dL Normal 0.2-1.0 [facility] Comment on above: Performed By: #### P 14 #### [facility] [address] [place], [place] [address] Protein [Mass/Vol] 8.0 g/dL Normal 6.4-8.2 [facility] Comment on above: Performed By: #### P 14 #### [facility] [address] [place], [place] [address] AST [Catalytic activity/Vol] 29 U/L Normal 15-37 [facility] Comment on above: Performed By: #### P 14 #### [facility] [address] [place], [place] [address] ALT [Catalytic activity/Vol] 32 U/L Normal 12-78 [facility] Comment on above: Performed By: #### P 14 #### [facility] [address] [place], [place] [address] Creatinine [Mass/Vol] 0.57 mg/dL Normal 0.51-0.95 [facility] Comment on above: Performed By: #### P 14 #### [facility] [address] [place], [place] [address] Albumin [Mass/Vol] 3.9 g/dL Normal 3.4-5.0 [facility] Comment on above: Performed By: #### P 14 #### [facility] [address] [place], [place] [address] Anion gap [Moles/Vol] 12 mmol/L Normal 8-16 [facility] Comment on above: Performed By: #### P 14 #### [facility] [address] [place], [place] [address] Calcium [Mass/Vol] 8.6 mg/dL Normal 8.5-10.1 [facility] Comment on above: Performed By: #### P 14 #### [facility] [address] [place], [place] [address] CO2 [Moles/Vol] 24 mmol/L Normal 21-32 [facility] Comment on above: Performed By: #### P 14 #### [facility] [address] [place], [place] [address] Glucose [Mass/Vol] 87 mg/dL Normal 70-99 [facility] Comment on above: Performed By: #### P 14 #### [facility] [address] [place], [place] [address] Urea nitrogen [Mass/Vol] 2 mg/dL Low 7-18 [facility] Comment on above: Performed By: #### P 14 #### [facility] [address] [place], [place] [address] Chloride [Moles/Vol] 111 mmol/L High 98-107 [facility] Comment on above: Performed By: #### P 14 #### [facility] [address] [place], [place] [address] Potassium [Moles/Vol] 3.2 mmol/L Low 3.5-5.1 [facility] Comment on above: Performed By: #### P 14 #### [place] [id number] Sodium [Moles/Vol] 144 mmol/L Normal 136-145 [facility] Comment on above: Performed By: #### P 14 #### [place] [id number] ED NOTEon 10-05-2019 ED NOTE HNO ID: [id number] Author: Tervin EvangelistaRn) EMILY Irwin Service: Emergency Medicine Author Type: Registered Nurse Type: ED Notes Filed: 10/05/2019 1:34 PM Note Text: Called lab at this time regarding outstanding lab orders And states they will run salicylate and acetaminophen at this time [facility] ED NOTE HNO ID: [id number] Author: Trevin EvangelistaRn) EMILY Irwin Service: Emergency Medicine Author Type: Registered Nurse Type: ED Notes Filed: 10/05/2019 1:20 PM Note Text: This RN assuming care of pt. While primary RN is at lunch break. Pt. Resting in bed at this time with bedside caregiver. No acute distress noted at this time. Safety precautions being maintained. [facility] ED NOTE HNO ID: [id number] Author: Collette EvangelistaRn) EMILY Lion Service: Emergency Medicine Author Type: Registered Nurse Type: ED Notes Filed: 10/05/2019 9:42 AM Note Text: Pt placed on quality assurance monitor body and continuous pulse ox; alarms set and on. [facility] ED NOTE HNO ID: [id number] Author: Carola EvangelistaRnCarter Platt RN Service: ? Author Type: Registered Nurse Type: ED Notes Filed: 10/05/2019 8:38 AM Note Text: Bed: [facility] Expected date: 10/05/19 Expected time: 8:09 AM Means of arrival: [facility] 13 Comments: [id number] - si [facility] ED PROV NOTEon 10-05-2019 ED PROV NOTE HNO ID: [id number] Author: Todd Bullock DO Service: Emergency Medicine [...] Bullock, DO Todd Bullock, 10/08/19 0726 Normal [facility] Hemogram/Diffon 10-05-2019 Abs Immature Grans 0.01 thou/cmm Normal 0.00-0.05 [facility] Comment on above: Performed By: #### C BCD1 #### [place] [address] Abs Neut (ANC) 1.99 thou/cmm Normal 1.56-6.13 [facility] Comment on above: Performed By: #### C BCD1 #### [place] [address] Abs. Baso 0.01 thou/cmm Normal 0.01-0.08 [facility] Comment on above: Performed By: #### C BCD1 #### [place] [address] Abs. Hodgeman 0.33 thou/cmm Normal 0.27-0.70 [facility] Comment on above: Performed By: #### C BCD1 #### [place] [address] Basophils/100 WBC (Bld) 0.2 % Normal [facility] [place] Comment on above: Performed By: #### C BCD1 #### [facility] [address] [place], [place] [address] Eosinophils (Bld) [#/Vol] 0.15 thou/cmm Normal 0.00-0.31 [facility] Comment on above: Performed By: #### C BCD1 #### [facility] [address] [place], [place] [address] Eosinophils/100 WBC (Bld) 3.6 % Normal [facility] Comment on above: Performed By: #### C BCD1 #### [facility] [address] [place], [place] [address] Erythrocyte distribution width (RBC) [Ratio] 14.3 % Normal 11.7-14.4 [facility] Comment on above: Performed By: #### C BCD1 #### [facility] [address] [place] [address] Hematocrit (Bld) [Volume fraction] 47.0 % High 34.1-44.9 [facility] Comment on above: Performed By: #### C BCD1 #### [facility] [address] [place], [place] [address] Hemoglobin (Bld) [Mass/Vol] 15.4 g/dL Normal 11.2-15.7 [facility] Comment on above: Performed By: #### C BCD1 #### [facility] [address] [place], [place] [address] Immature Grans 0.20 % Normal [facility] Comment on above: Performed By: #### C BCD1 #### [facility] [address] [place], [place] [address] Lymphocytes (Bld) [#/Vol] 1.71 thou/cmm Normal 1.18-3.74 [facility] Comment on above: Performed By: #### C BCD1 #### [facility] [address] [place], [place] [address] Lymphocytes/100 WBC (Bld) 40.7 % Normal [facility] Comment on above: Performed By: #### C BCD1 #### [facility] [address] [place], [place] [address] MCH (RBC) [Entitic mass] 27.9 pg Normal 25.6-32.2 [facility] Comment on above: Performed By: #### C BCD1 #### [facility] [address] [place], [place] [address] MCHC (RBC) [Mass/Vol] 32.8 % Normal 31.6-34.8 [facility] Comment on above: Performed By: #### C BCD1 #### [facility] [address] [place], [place] [address] MCV (RBC) [Entitic vol] 85.3 fL Normal 79.4-94.8 [facility] Comment on above: Performed By: #### C BCD1 #### [facility] [address] [place] [address] Monocytes/100 WBC (Bld) 7.9 % Normal [facility] Comment on above: Performed By: #### C BCD1 #### [facility] [address] [place] [address] Platelet mean volume (Bld) [Entitic vol] 10.6 fL Normal 9.4-12.3 [facility] Comment on above: Performed By: #### C BCD1 #### [facility] [address] [place], [place] [address] Platelets (Bld) [#/Vol] 160 thou/cmm Low 182-369 [facility] Comment on above: Performed By: #### C BCD1 #### [facility] [address] [place], [place] [address] RBC (Bld) [#/Vol] 5.51 mil/cmm High 3.93-5.22 [facility] Comment on above: Performed By: #### C BCD1 #### [facility] [address] [place], [place] [address] RDW SD 43.8 fl Normal 36.4-46.3 [facility] Comment on above: Performed By: #### C GEORGETTED1 #### [facility] [address] [place], [place] [address] Seg Neutrophil 47.4 % Normal [facility] Comment on above: Performed By: #### C BCD1 #### [facility] [address] [place], [place] [address] WBC (Bld) [#/Vol] 4.20 thou/cmm Normal 3.98-10.04 [facility] Comment on above: Performed By: #### C BCD1 #### [facility] [address] [place], [place] [address] MDRD GFRon 10-05-2019 GFR/1.73 sq M predicted among non-blacks MDRD (S/P/Bld) [Vol rate/Area] mL/min/{1.73_m2} Normal >60mL/min/1.73m2 [facility] Comment on above: Result Comment: If t he patient is , multiply the result by 1.210. Performed By: #### G FR #### [address] [address] PLAN OF CAREon 10-05-2019 PLAN OF CARE HNO ID: [id number] Author: Merlin Lynn (Wheat Grower) Service: Pharmacy Author Type: Bar Turner Type: Plan of Care Filed: 10/05/2019 9:06 AM Note Text: MEDICATION HISTORY Patient Name:Joanie Toro : 1995 Source of history:Patient: Reliability of source: Appears reliable, clearly identified: Medication name and Medication dose and Pharmacy records: [facility] [phone] (primary) Medication Nonadherence Identified: No barriers noted The above information represents the best possible medication history: Yes Additional comments: Jbhrj-[id number] Medication List Adjustments: Medication Regimen Changes: na Medications Added: na Medications Removed: na Short-Term Medications: na Further Clarification Required: na Patient is a 30 day readmission: no Patient Interested in Bedside Delivery: no Time Spent Reviewing Patient's Medications: 45 minutes Allergies: ALLERGIES No Known Allergies Preferred Pharmacy: [facility] [phone] (primary) 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 10/05/2019 Yes Merlin Lynn (Wheat Grower) pager [phone] phone [phone] October 05, 2019 9:04 AM Normal [facility] Salicylateon 10-05-2019 Salicylate 1.9 mg/dL Low 2.8-20.0 [facility] Comment on above: Performed By: #### S AL #### [place] [address] Urinalysis Routineon 019 Bacteria LM.HPF (Urine sed) [#/Area] NONE Normal None [facility] Comment on above: Performed By: #### U RIN2 #### [place] [address] Ep Cells Urine 2.9 /hpf Normal 0.0-5.0 [facility] Comment on above: Performed By: #### U RIN2 #### [place] [address] Hyaline Cast 0.0 /lpf Normal 0.0-1.0 [facility] Comment on above: Performed By: #### U RIN2 #### [place] [address] RBC LM.HPF (Urine sed) [#/Area] 0.9 /[HPF] Normal 0.0-5.0 [facility] Comment on above: Performed By: #### U RIN2 #### [place] [address] WBC LM.HPF (Urine sed) [#/Area] 5.3 /[HPF] High 0.0-5.0 [facility] Comment on above: Performed By: #### U RIN2 #### [place] [address] Appearance (U) CLOUDY Normal [facility] Comment on above: Performed By: #### U RIN2 #### [facility] [address] [place] [address] Bilirubin (U) [Mass/Vol] Negative Normal Negative [facility] Comment on above: Performed By: #### U RIN2 #### [facility] [address] [place] [address] Color (U) YELLOW Normal [facility] Comment on above: Performed By: #### U RIN2 #### [facility] [address] [place] [address] Glucose Ql (U) Negative Normal Negative [facility] Comment on above: Performed By: #### U RIN2 #### [facility] [address] [place] [address] Hemoglobin,Urine Negative Normal Negative [facility] Comment on above: Performed By: #### U RIN2 #### [facility] [address] [place] [address] Ketone Urine Negative Normal Negative [facility] Comment on above: Performed By: #### U RIN2 #### [facility] [address] [place] [address] Leukocytes Esterase SMALL Abnormal Negative [facility] Comment on above: Performed By: #### U RIN2 #### [facility] [address] [place] [address] Nitrites Urine Negative Normal Negative [facility] Comment on above: Performed By: #### U RIN2 #### [place] [address] pH (U) 6.0 [pH] Normal 5.0-8.0 [facility] Comment on above: Performed By: #### U RIN2 #### [facility] [address] [place] [address] Protein (U) [Mass/Vol] Negative Normal Negative [facility] Comment on above: Performed By: #### U RIN2 #### [facility] [address] [place] [address] Specific [place], Ur 1.005 Normal 1.005-1.030 [facility] Comment on above: Performed By: #### U RIN2 #### [facility] [address] [place] [address] Urobilinogen,Ur 0.2 EU/dL Normal 0.2-1.0 [facility] Comment on above: Performed By: #### U RIN2 #### [facility] [address] [place] [address] Urine Drug Screenon 10-05-20 19 Urine Opiate Non-detected Normal Non-Detected [facility] Comment on above: Performed By: #### U DRG2 #### [place] [address] Urine THC see below Normal Non-Detected [facility] Comment on above: Result Comment: Dete [...] only. Performed By: #### U DRG2 #### [place] [address] Urine Amphetamine Non-detected Normal Non-Detected [facility] Comment on above: Performed By: #### U DRG2 #### [place] [address] Urine Barbiturates Non-detected Normal Non-Detected [facility] Comment on above: Performed By: #### U DRG2 #### [place] [address] Urine Benzodiazepine Non-detected Normal Non-Detected [facility] Comment on above: Performed By: #### U DRG2 #### [place] [address] Urine Cocaine Metab Non-detected Normal Non-Detected [facility] Comment on above: Performed By: #### U DRG2 #### [address], [place] [address] Urine PCP Non-detected Normal Non-Detected [facility] Comment on above: Performed By: #### U DRG2 #### [facility] [address] [place] [address] Urine HCG, Qual.on 9 Beta HCG ( test) Ql (U) Negative Normal Negative [facility] Comment on above: Performed By: #### H CGUR #### [facility] [address] [place] [address] Comment See Below Normal [facility] Comment on above: Result Comment: If s pecific gravity is <1.005 then results may be falsely negative. Serum HCG is recommended. Performed By: #### H CGUR #### [facility] [address] [place] [address] Specific [place], Ur 1.005 Normal 1.005-1.030 [facility] Comment on above: Performed By: #### H CGUR #### [place] [address] PROGRESSon 08-19-2019 PROGRESS HNO ID: [id number] Author: Maddi Beckwith Service: Obstetrics Author Type: [...] follow up. Maddi Beckwith DO Pager # [phone] 08/19/2019 5:01 PM Normal [facility] PROGRESS HNO ID: [id number] Author: Dario Gil Service: Obstetrics Author Type: [...] No history of dysuria, frequency or incontinence 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: Negative for abnormal vaginal bleeding, endorses leakage [...] TIME: 12:02 PM PAGER/CONTACT #: [phone] Normal [facility] Basic Metabolic Panelon 11-2 Anion gap 3 molar conc 11 mmol/L Normal 7-13 Me [facility] Calcium mass conc 9.3 mg/dL Normal 8.6-10.2 [facility] Chloride molar conc 103 mmol/L Normal 98-107 [facility] CO2 molar conc 25 mmol/L Normal 22-29 [facility] Creatinine mass conc 0.61 mg/dL Normal 0.50-0.90 [facility] GFR/1.73 sq M predicted among blacks MDRD vol rate/area (S/P/Bld) mL/min/{1.73_m2} Normal >60 [facility] Comment on above: Result Comment: >60 mL/min/1.73m2 EGFR, calc. for ages 18 and older using theMDRD formula (not corrected for weight), is valid for stablerenal function. GFR/1.73 sq M.predicted MDRD vol rate/area mL/min/{1.73_m2} Normal >60 [facility] Comment on above: Result Comment: >60 mL/min/1.73m2 EGFR, calc. for ages 18 and older using theMDRD formula (not corrected for weight), is valid for stablerenal function. Glucose mass conc 84 mg/dL Normal 74-109 [facility] Potassium molar conc 4.8 mmol/L Normal 3.5-5.1 [facility] Sodium molar conc 139 mmol/L Normal 132-144 [facility] Urea nitrogen mass conc 14 mg/dL Normal 6-20 M [facility] TSH w/out Reflexon 8 Thyrotropin Qn 1.090 uIU/mL Normal 0.270-4.20 [facility] VITAMIN Don 09-22-2018 VITAMIN D 22.7 ng/mL Low 30.0-100.0 [facility] Comment on above: Result Comment: (20- 30 ng/mL) InsufficiencyThis assay accurately quantifies the sum of vitamin D3, 25-Hydroxy andvitamin D2, 25-Hyroxy. TSH w/out Reflexon 8 Thyrotropin Qn 0.514 uIU/mL Normal 0.270-4.20 [facility] VITAMIN Don 09-05-2018 VITAMIN D 24.4 ng/mL Low 30.0-100.0 [facility] Comment on above: Result Comment: (20- 30 ng/mL) InsufficiencyThis assay accurately quantifies the sum of vitamin D3, 25-Hydroxy andvitamin D2, 25-Hyroxy. Vital Signs Date Time Vital Sign Value Performing Clinician Facility 01-18-2024 08:22-0400 Body temperature 98.6 [degF] Lakeisha Fortune APRN.GARNETT ROOM WORKER Work Phone: [facility] 01-18-2024 08:22-0400 Body weight 70 kg Lakeisha Fortune APRN.CNP Work Phone: [facility] 01-18-2024 08:22-0400 Diastolic blood pressure 86 mm[Hg] Lakeisha Fortune APRN.CNP Work Phone: [facility] 01-18-2024 08:22-0400 Heart rate 97 /min Lakeisha Fortune APRN.CNP Work Phone: [facility] 01-18-2024 08:22-0400 Respiratory rate 16 /min Lakeisha Fortune GALLERY OR MUSEUM CURATOR.GARNETT ROOM WORKER Work Phone: [facility] 01-18-2024 08:22-0400 SaO2% (BldA) [Mass fraction] 96 % Lakeisha Fortune GALLERY OR MUSEUM CURATOR.GARNETT ROOM WORKER Work Phone: [facility] 01-18-2024 08:22-0400 Systolic blood pressure 125 mm[Hg] Lakeisha Fortune GALLERY OR MUSEUM CURATOR.GARNETT ROOM WORKER Work Phone: [facility] 10-07-2023 16:23-0500 Body temperature 97.9 [degF] [facility] 10-07-2023 16:23-0500 Diastolic blood pressure 70 mm[Hg] [facility] 10-07-2023 16:23-0500 Heart rate 73 /min [facility] 10-07-2023 16:23-0500 Respiratory rate 16 /min [facility] 10-07-2023 16:23-0500 SaO2% (BldA) [Mass fraction] 95 % [facility] 10-07-2023 16:23-0500 Systolic blood pressure 110 mm[Hg] [facility] 10-06-2023 10:51-0500 Body height 170.18 cm [facility] 10-06-2023 10:51-0500 Body mass index (BMI) [Ratio] 28.5 kg/m2 [facility] 10-06-2023 10:51-0500 Body weight 82.55 kg [facility] 10-05-2023 13:58-0500 Body weight 82.56 kg Krystian Valencia MD Work Phone: [facility] 10-05-2023 13:58-0500 Diastolic blood pressure 74 mm[Hg] Krystian Valencia MD Work Phone: [facility] 10-05-2023 13:58-0500 Systolic blood pressure 118 mm[Hg] Krystian Valencia MD Work Phone: [facility] 09-27-2023 11:17-0500 Body weight 82.56 kg Gracy Ross MD Work Phone: [facility] 09-27-2023 11:17-0500 Diastolic blood pressure 60 mm[Hg] Gracy Ross MD Work Phone: [facility] 09-27-2023 11:17-0500 Systolic blood pressure 100 mm[Hg] Gracy Ross MD Work Phone: [facility] 09-20-2023 14:19-0500 Body weight 83.01 kg Maritza Richard GALLERY OR MUSEUM CURATOR.CNM Work Phone: [facility] 09-20-2023 14:19-0500 Diastolic blood pressure 62 mm[Hg] Maritza Richard GALLERY OR MUSEUM CURATOR.CNM Work Phone: [facility] 09-20-2023 14:19-0500 Systolic blood pressure 112 mm[Hg] Maritza Rcihard GALLERY OR MUSEUM CURATOR.CNM Work Phone: [facility] 09-20-2023 13:35-0500 Body weight 83.01 kg Ob Ultrasound Work Phone: [facility] 09-13-2023 11:23-0500 Body weight 82.28 kg Dulce Sterling GALLERY OR MUSEUM CURATOR.GARNETT ROOM WORKER Work Phone: [facility] 09-13-2023 11:23-0500 Diastolic blood pressure 80 mm[Hg] Dulce Sterling GALLERY OR MUSEUM CURATOR.GARNETT ROOM WORKER Work Phone: [facility] 09-13-2023 11:23-0500 Systolic blood pressure 120 mm[Hg] Dulce Shiva GALLERY OR MUSEUM CURATOR.GARNETT ROOM WORKER Work Phone: [facility] 09-01-2023 14:14-0500 Body weight 85.46 kg Lon Haury GALLERY OR MUSEUM CURATOR.GARNETT ROOM WORKER Work Phone: [facility] 09-01-2023 14:14-0500 Diastolic blood pressure 72 mm[Hg] Lon Haury GALLERY OR MUSEUM CURATOR.GARNETT ROOM WORKER Work Phone: [facility] 09-01-2023 14:14-0500 Systolic blood pressure 114 mm[Hg] Lon Haury GALLERY OR MUSEUM CURATOR.GARNETT ROOM WORKER Work Phone: [facility] 08-18-2023 10:27-0400 Body weight 81.65 kg Cortney Plotts GALLERY OR MUSEUM CURATOR.CNM Work Phone: [facility] 08-18-2023 10:27-0400 Diastolic blood pressure 72 mm[Hg] Cortney Plotts GALLERY OR MUSEUM CURATOR.CNM Work Phone: [facility] 08-18-2023 10:27-0400 Systolic blood pressure 120 mm[Hg] Cortney Plotts GALLERY OR MUSEUM CURATOR.CNM Work Phone: [facility] 07-12-2023 13:18-0400 Body weight 80.83 kg Gracy Ross MD Work Phone: [facility] 07-12-2023 13:18-0400 Diastolic blood pressure 80 mm[Hg] Gracy Ross MD Work Phone: [facility] 07-12-2023 13:18-0400 Systolic blood pressure 120 mm[Hg] Gracy Ross MD Work Phone: [facility] 06-23-2023 14:35-0400 Body weight 81.19 kg Cortney Plotts GALLERY OR MUSEUM CURATOR.CNM Work Phone: [facility] 06-23-2023 14:35-0400 Diastolic blood pressure 70 mm[Hg] Cortney Plotts GALLERY OR MUSEUM CURATOR.CNM Work Phone: [facility] 06-23-2023 14:35-0400 Systolic blood pressure 110 mm[Hg] Cortney Plotts GALLERY OR MUSEUM CURATOR.CNM Work Phone: [facility] 05-26-2023 13:54-0400 Body weight 77.11 kg Gracy Ross MD Work Phone: [facility] 05-26-2023 13:54-0400 Diastolic blood pressure 64 mm[Hg] Gracy Ross MD Work Phone: [facility] 05-26-2023 13:54-0400 Systolic blood pressure 108 mm[Hg] Gracy Ross MD Work Phone: [facility] 04-21-2023 15:30-0400 Body weight 73.94 kg Maritza Richard GALLERY OR MUSEUM CURATOR.CNM Work Phone: [facility] 04-21-2023 15:30-0400 Diastolic blood pressure 60 mm[Hg] Maritza Richard GALLERY OR MUSEUM CURATOR.CNM Work Phone: [facility] 04-21-2023 15:30-0400 Systolic blood pressure 106 mm[Hg] Maritza Richard GALLERY OR MUSEUM CURATOR.CNM Work Phone: [facility] 03-25-2023 14:43-0400 Body weight 74.39 kg Cortney Plotmikie GALLERY OR MUSEUM CURATOR.CNM Work Phone: [facility] 03-25-2023 14:43-0400 Diastolic blood pressure 64 mm[Hg] Cortney Plotts GALLERY OR MUSEUM CURATOR.CNM Work Phone: [facility] 03-25-2023 14:43-0400 Systolic blood pressure 100 mm[Hg] Cortney Cash GALLERY OR MUSEUM CURATOR.CNM Work Phone: [facility] 03-25-2023 14:22-0400 Body height 170.2 cm Ob Ultrasound Work Phone: [facility] 03-25-2023 14:22-0400 Body weight 74.39 kg Ob Ultrasound Work Phone: [facility] 03-06-2022 11:09-0400 Body weight 68.04 kg Vilma Gray APRN.GARNETT ROOM WORKER Work Phone: [facility] 03-06-2022 11:09-0400 Diastolic blood pressure 68 mm[Hg] Vilma Gray APRN.GARNETT ROOM WORKER Work Phone: [facility] 03-06-2022 11:09-0400 Systolic blood pressure 136 mm[Hg] Vilma Gray APRN.GARNETT ROOM WORKER Work Phone: [facility] 10-10-2020 11:32-0500 Body Temperature 97.81 [degF] [facility] [place] [place] 10-10-2020 06:06-0500 BP Diastolic 58 mm[Hg] [facility] , [place] 10-10-2020 06:06-0500 BP Systolic 114 mm[Hg] [facility] [place] 10-10-2020 06:06-0500 Pulse (Heart Rate) 61 /min [facility] [place] 10-10-2020 06:06-0500 Pulse Oximetry 97 % [facility] [place] 10-10-2020 06:06-0500 Respiratory Rate 18 /min [facility] [place] 10-07-2020 16:48-0500 BMI (Body Mass Index) 21.93 kg/m2 [facility] [place], [place] 10-07-2020 16:48-0500 Body weight 63.5 kg [facility] [place] 10-07-2020 16:48-0500 Height 170.2 cm [place], [place] Encounters Encounter Date Encounter Type Care Provider Facility Start: 05-09-2025 End: 05-09-2025 ambulatory Alber Dawson RN NURSE LOGISTICS SUPPLY OFFICER Comment on above: Patient Update Start: 02-15-2024 Telephone encounter Carrie alvares MD Work Phone: [facility] Start: 01-18-2024 End: 01-18-2024 ambulatory SELF Facility:[facility] Start: 01-18-2024 End: 01-18-2024 Patient encounter procedure Lakeisha Fortune APRN.GARNETT ROOM WORKER Work Phone: [facility] Comment on above: Strep throat (Primar y Dx); Nausea and vomiting, unspecified vomiting type Start: 01-03-2024 Telephone encounter Gracy Ross MD Work Phone: OB/Gynecology Comment on above: Appointment; Patient Update Start: 12-28-2023 End: 12-28-2023 ambulatory LOS AGUILAR Facility:[facility] Start: 12-06-2023 Telephone encounter Gracy Ross MD Work Phone: OB/Gynecology Comment on above: Abnormal Pap Start: 11-24-2023 End: 11-24-2023 ambulatory GRACY ROSS Facility:[facility] Start: 10-06-2023 End: 10-07-2023 Evaluation and management of inpatient Cortney Cash Facility:[facility] Start: 10-06-2023 End: 10-07-2023 Evaluation and management of inpatient [facility] Work Phone: Start: 10-05-2023 End: 10-05-2023 ambulatory KRYSTIAN VALENCIA Facility:[facility] Start: 10-05-2023 End: 10-05-2023 Patient encounter procedure Krystian Valencia MD Work Phone: OB/Gynecology Comment on above: Supervision of high risk in third trimester (Primary Dx); 39 weeks gestation of Start: 09-27-2023 End: 09-27-2023 ambulatory GRACY ROSS Facility:[facility] Start: 09-27-2023 End: 09-27-2023 Patient encounter procedure Gracy Ross MD Work Phone: OB/Gynecology Comment on above: Supervision of high risk in third trimester (Primary Dx); Anemia complicating , third trimester; 38 weeks gestation of Start: 09-24-2023 [facility] Comment on above: Population Health Na vigation Outreach (Peds/OB) Start: 09-20-2023 End: 09-20-2023 ambulatory MARITZA RICHARD Facility:[facility] Start: 09-20-2023 End: 09-20-2023 Patient encounter procedure Tile Sorter Wilkinson Ultrasound Work Phone: OB/Gynecology Comment on above: [...] Start: 09-13-2023 End: 09-13-2023 ambulatory LEONARDO UPTON Facility:[facility] Start: 09-13-2023 End: 09-13-2023 Patient encounter procedure Dulce Shannon GALLERY OR MUSEUM CURATOR.GARNETT ROOM WORKER Work Phone: OB/Gynecology Comment on above: 36 weeks gestation o f (Primary Dx); Supervision of high risk in third trimester; Vaginal discharge Start: 09-02-2023 Telephone encounter Lon lima APRN.GARNETT ROOM WORKER Work Phone: OB/Gynecology Comment on above: Results Start: 09-01-2023 End: 09-02-2023 ambulatory LON ARANDA Facility:[facility] Start: 09-01-2023 End: 09-01-2023 Patient encounter procedure Lon Aranda GALLERY OR MUSEUM CURATOR.GARNETT ROOM WORKER Work Phone: OB/Gynecology Comment on above: Supervision of high risk in third trimester (Primary Dx); 34 weeks gestation of ; History of thyroid disease; Migraine with aura and without status migrainosus, not intractable; Anemia complicating , third trimester; [place] Hick's contraction Start: 09-01-2023 Telephone encounter Lon lima APRN.GARNETT ROOM WORKER Work Phone: OB/Gynecology Comment on above: Results Start: 08-18-2023 End: 08-18-2023 ambulatory CORTNEY CASH Facility:[facility] Start: 08-18-2023 End: 08-18-2023 Patient encounter procedure Cortney Cash GALLERY OR MUSEUM CURATOR.CNM Work Phone: OB/Gynecology Comment on above: 32 weeks gestation o f (Primary Dx); Encounter for supervision of other normal in third trimester; Anemia complicating , third trimester Start: 07-22-2023 Telephone encounter Cortney salazar GALLERY OR MUSEUM CURATOR.CNM Work Phone: OB/Gynecology Start: 07-21-2023 End: 07-22-2023 ambulatory CORTNEY CASH Facility:[facility] Start: 07-12-2023 End: 07-12-2023 ambulatory LEONARDO UPTON Facility:[facility] Start: 07-12-2023 Telephone encounter Leonardo bonner MD Work Phone: OB/Gynecology Comment on above: OB - spotting Start: 07-12-2023 End: 07-12-2023 Patient encounter procedure Gracy Ross MD Work Phone: OB/Gynecology Comment on above: Spotting in pregnanc y (Primary Dx); Bloody show and cramping in early ; 27 weeks gestation of Start: 06-29-2023 End: 06-29-2023 ambulatory DULCEAMAYA DE LEÓNF Facility:[facility] Start: 06-29-2023 End: 06-29-2023 Patient encounter procedure Tile Sorter Wilkinson Ultrasound Work Phone: OB/Gynecology Comment on above: Encounter for follow -up ultrasound of anatomy (Primary Dx); 25 weeks gestation of Start: 06-23-2023 End: 06-23-2023 ambulatory CORTNEY [facility] Facility:[facility] Start: 06-23-2023 End: 06-23-2023 Patient encounter procedure Cortney Cash GALLERY OR MUSEUM CURATOR.CNM Work Phone: OB/Gynecology Comment on above: 24 weeks gestation o f (Primary Dx); Encounter for supervision of other normal in second trimester Start: 06-14-2023 Telephone encounter Dulce landeros GALLERY OR MUSEUM CURATOR.GARNETT ROOM WORKER Work Phone: OB/Gynecology Comment on above: Orders Start: 06-02-2023 Telephone encounter Cortney salazar GALLERY OR MUSEUM CURATOR.CNM Work Phone: OB/Gynecology Comment on above: Breast Pump Start: 05-26-2023 End: 05-27-2023 ambulatory GRACY ROSS Facility:[facility] Start: 05-26-2023 End: 05-26-2023 Patient encounter procedure Gracy Ross MD Work Phone: OB/Gynecology Comment on above: Encounter for superv ision of other normal in second trimester (Primary Dx); 20 weeks gestation of Encounter for anatomic survey (Primary Dx); 20 weeks gestation of Start: 04-21-2023 End: 04-21-2023 ambulatory CORTNEY CASH Facility:[facility] Start: 04-21-2023 End: 04-21-2023 Patient encounter procedure Maritza Richard GALLERY OR MUSEUM CURATOR.CNM Work Phone: OB/Gynecology Comment on above: 15 weeks gestation o f (Primary Dx) Start: 04-05-2023 End: 04-06-2023 ambulatory LEONARDO UPTON Facility:[facility] Start: 03-25-2023 End: 03-26-2023 [facility] Start: 03-25-2023 End: 03-26-2023 ambulatory [facility] Facility:[facility] Start: 03-25-2023 End: 03-25-2023 Patient encounter procedure Cortney Cash APRN.CNM Work Phone: OB/Gynecology Comment on above: 11 weeks gestation o f (Primary Dx) Encounter for (NT) n uchal translucency scan (Primary Dx); 11 weeks gestation of Start: 03-04-2023 End: 03-05-2023 [facility] Facility:[facility] Start: 03-04-2023 End: 03-04-2023 Patient encounter procedure Tile Sorter Wilkinson Ultrasound Work Phone: OB/Gynecology Comment on above: Encounter to determi ne viability of , single or unspecified fetus (Primary Dx); with uncertain viability, single or unspecified fetus Start: 02-26-2023 Telephone encounter Maritza sandoval APRN.CNM Work Phone: OB/Gynecology Comment on above: Abnormal Pap (/) Start: 02-18-2023 End: 02-19-2023 [facility] Facility:[facility] Start: 02-15-2023 End: 02-15-2023 Nursing evaluation of patient and report Nurse Pnob [facility] Work Phone: OB/Gynecology Comment on above: Current wi th history of spontaneous during prior (Primary Dx); History of bipolar disorder; History of alcohol abuse; History of thyroid disorder; Patient request for diagnostic testing Start: 02-15-2023 End: 02-15-2023 Patient requested procedure Nurse Karlee [facility] Work Phone: OB/Gynecology Start: 03-06-2022 End: 03-06-2022 Patient encounter procedure Vilma Gray APRN.GARNETT ROOM WORKER Work Phone: OB/Gynecology Comment on above: Irregular menses (Pr imary Dx); Encounter for BCP ( control pills) initial prescription; General counseling and advice for contraceptive management Start: 10-06-2020 [facility] Date Procedure Procedure Detail Performing Clinician Start: 01-18-2024 STREP A MOLECULAR (POC) Lakeisha Fortune GALLERY OR MUSEUM CURATOR.GARNETT ROOM WORKER Work Phone: Start: 10-05-2023 URINE OB DIP B/O Krystian Valencia MD Work Phone: Start: 09-27-2023 URINE OB DIP B/O Gracy Ross MD Work Phone: Start: 09-20-2023 URINE OB DIP B/O Ruma Richard GALLERY OR MUSEUM CURATOR.CNM Work Phone: Start: 09-20-2023 Us preg uterus after 1st trimest 10/25 gestation Lon Aranda GALLERY OR MUSEUM CURATOR.GARNETT ROOM WORKER Work Phone: Start: 09-13-2023 URINE OB DIP B/O Leonardo bethea MD Work Phone: Start: 09-01-2023 URINE OB DIP B/O Lon Aranda GALLERY OR MUSEUM CURATOR.GARNETT ROOM WORKER Work Phone: Start: 08-18-2023 URINE OB DIP B/O Sean Cash GALLERY OR MUSEUM CURATOR.CNM Work Phone: Start: 07-12-2023 BACTERIAL VAGINOSIS ODILONT Gracy Ross MD Work Phone: Start: 07-12-2023 Iadna trichomonas va ginalis amplified probe tech Gracy Ross MD Work Phone: Start: 07-12-2023 Urnls dip stick/tabl et rgnt auto w/o microscopy Leonardo Upton MD Work Phone: Start: 06-29-2023 Us preg uterus after 1st trimest 10/25 gestation Dulce Shannon GALLERY OR MUSEUM CURATOR.GARNETT ROOM WORKER Work Phone: Start: 06-23-2023 URINE OB DIP B/O Sean Cash GALLERY OR MUSEUM CURATOR.CNM Work Phone: Start: 05-26-2023 Us preg uterus after 1st trimest 10/25 gestation Maritzamichel Richard GALLERY OR MUSEUM CURATOR.CNM Work Phone: Start: 05-26-2023 URINE OB DIP B/O Gracy Ross MD Work Phone: Start: 04-21-2023 URINE OB DIP B/O Sean Cash GALLERY OR MUSEUM CURATOR.CNM Work Phone: Start: 03-25-2023 Antibody screen GRACY ROSS Comment on above: Order Comment: Speci men Type: BLOOD SPECIMEN Ordering Facility: [facility] Address: [address] [place] [address] Performed By: #### T SPN #### CC MAIN BLOOD BANK [facility] [id number] OF [facility] Start: 03-25-2023 URINE OB DIP B/O Sean Cash GALLERY OR MUSEUM CURATOR.CNM Work Phone: Start: 03-25-2023 Us nuchal dias slucency 1st gestation Maritza Jose Manuel GALLERY OR MUSEUM CURATOR.CNM Work Phone: Start: 03-04-2023 Us preg uterus after 1st trimest 10/25 gestation Maritza Jose Manuel GALLERY OR MUSEUM CURATOR.CNM Work Phone: Start: 03-06-2022 Urine test visual color cmprsn meths Vilma Gray GALLERY OR MUSEUM CURATOR.GARNETT ROOM WORKER Work Phone: Start: 10-07-2020 Hemoglobin glycosylated a1c [...] Adult depression scr eening assessment Vilma Gray APRN.GARNETT ROOM WORKER Work Phone: Plan of Treatment Date Care Activity Detail Author Start: 07-21-2033 Urine microalbumin profile DTaP,Tdap,Td Vaccine (4 - Td or Tdap) [facility] Start: 07-11-2029 Urine microalbumin profile [facility] Start: 11-24-2026 Screening for malign ant neoplasm of cervix Pap Testing [facility] Start: 02-18-2026 PAP TESTING PAP TESTING [facility] Start: 02-18-2026 Screening for malign ant neoplasm of cervix Pap Testing [facility] Start: 06-25-2025 Influenza vaccination Influenza Vacc ine (#1) [facility] Start: 11-24-2024 Screening for malign ant neoplasm of cervix Cervical Cancer Screening [facility] Start: 06-25-2024 Covid-19 Vaccine ( season) Covid-19 Vaccine ( season) [facility] Start: 06-25-2024 Influenza vaccination Influenz a Vaccine (Season Ended) [facility] Start: 10-25-2023 Behavioral Health Screening Behavioral Health Screening [facility] Start: 10-25-2023 Depression Assessment Depression Ass essment [facility] Start: 10-07-[address] [facility] Start: 10-06-2023 Administration of medication [facility] Start: 10-06-2023 Application of ice collar, cap or bag [facility] Start: 10-06-2023 Catheterization of vein [facility] Start: 10-06-2023 Introduction of urin kasey catheter [facility] Start: 10-06-2023 Measuring intake and output [facility] Start: 10-06-2023 Notification of physician [facility] Start: 10-06-2023 Procedure discontinued [facility] Start: 10-06-2023 Provision of activit y privileges [facility] Start: 10-06-2023 Vital signs measurements [facility] Start: 10-06-2023 [facility] Start: 10-06-2023 [facility] Start: 10-06-2023 Obstetric monitoring [facility] Start: 10-06-2023 Vital signs measurements [facility] Start: 10-06-2023 [facility] Start: 10-06-2023 Consultation [facility] Start: 09-01-2023 End: 12-01-2023 Protein/Creatinine [Mass Ratio] in Urine [facility] Work Phone: Comment on above: Expected: 09/01/2023 , Expires: 12/01/2023 Start: 09-01-2023 End: 12-01-2023 Thyrotropin [Units/volume] in Serum or Plasma [facility] Work Phone: Comment on above: Expected: 09/01/2023 , Expires: 12/01/2023 Start: 09-01-2023 End: 12-01-2023 Thyroxine (T4) free [Mass/volume] in Serum or Plasma [facility] Work Phone: Comment on above: Expected: 09/01/2023 , Expires: 12/01/2023 Start: 06-25-2023 Covid-19 Vaccine () Covid-19 Vaccine () [facility] Start: 06-25-2023 Influenza vaccination [facility] Start: 06-23-2023 End: 08-23-2023 CBC W Auto Differential panel - Blood CBC + DIFF Lab Routine 24 weeks gestation of Encounter for supervision of other normal in second trimester Expected: 06/23/2023, Expires: 08/23/2023 [facility] Work Phone: Comment on above: Expected: 06/23/2023 , Expires: 08/23/2023 Start: 06-23-2023 End: 08-23-2023 GEST GLUC SCREEN, 1-HR, 50 GM, NON-FASTING GEST GLUC SCREEN, 1-HR, 50 GM, NON-FASTING Lab Routine 24 weeks gestation of Encounter for supervision of other normal in second trimester Expected: 06/23/2023, Expires: 08/23/2023 [facility] Work Phone: Comment on above: Expected: 06/23/2023 , Expires: 08/23/2023 Start: 06-23-2023 End: 08-23-2023 SYPHILIS TOTAL W/REFLEX SYPHILIS TOTAL W/REFLEX Lab Routine 24 weeks gestation of Encounter for supervision of other normal in second trimester Expected: 06/23/2023, Expires: 08/23/2023 [facility] Work Phone: Comment on above: Expected: 06/23/2023 , Expires: 08/23/2023 Start: 06-14-2023 End: 06-14-2024 OBSTETRIC ULTRASOUND WHI OBSTETRIC ULTRASOUND WHI Anc Imaging Routine Encounter for follow-up ultrasound of anatomy Expected: 06/14/2023, Expires: 06/14/2024 [facility] Work Phone: Comment on above: Expected: 06/14/2023 , Expires: 06/14/2024 Start: 05-26-2023 End: 07-26-2023 ALPHA FETOPRO MATERNAL [facility] Work Phone: Comment on above: Expected: 05/26/2023 , Expires: 07/26/2023 Start: 04-21-2023 End: 04-21-2024 OBSTETRIC ULTRASOUND WHI OBSTETRIC ULTRASOUND WHI Anc Imaging Routine 15 weeks gestation of Expected: 04/21/2023, Expires: 04/21/2024 [facility] Work Phone: Comment on above: Expected: 04/21/2023 , Expires: 04/21/2024 Start: 03-25-2023 End: 05-25-2023 Chromosome 21 trisomy [Presence] in Blood or Tissue by Cytogenetics [facility] Work Phone: Comment on above: Expected: 03/25/2023 , Expires: 05/25/2023 Start: 10-25-2022 DEPRESSION ASSESSMENT DEPRESSION ASS ESSMENT [facility] Start: 06-25-2022 Influenza vaccination INFLUENZ A (Season Ended) [facility] Start: 03-06-2022 End: 05-06-2022 Choriogonadotropin.beta subunit [Units/volume] in Serum or Plasma [facility] Work Phone: Comment on above: Expected: 03/06/2022 , Expires: 05/06/2022 Start: 12-15-2021 PAP TESTING PAP TESTING [facility] Start: 10-05-2020 Adult depression screening assessment DEPRESSION SCREENING [facility] Start: 06-25-2020 Influenza vaccination Flu vaccine (# 1) [place], [place] Start: 2014 Hepatitis B Vaccine (1 of 3 - 19+ 3-dose series) Hepatitis B Vaccine (1 of 3 - 19+ 3-dose series) [facility] Start: 2014 ONE PNEUMOVAX PRIOR TO AGE 65 ONE PNEUMOVAX PRIOR TO AGE 65 [facility] Start: 2013 Anxiety Screening Anxiety Screening [facility] Start: 2013 Depression Screening Depression Scre ening [facility] Start: 2013 HEPATITIS C SCREENING HEPATITIS C SC LINDA [facility] Start: 2009 PEDS TO ADULT TRANSI TION ANNUAL ASSESSMENT PEDS TO ADULT TRANSITION ANNUAL ASSESSMENT [facility] Start: 2007 PEDS TO ADULT TRANSI TION INITIAL DISCUSSION PEDS TO ADULT TRANSITION INITIAL DISCUSSION [facility] Start: 2006 HPV VACCINE (1 - 2-d ose series) HPV VACCINE (1 - 2-dose series) [facility] Start: 2000 COVID-19 VACCINE (#1) COVID-19 VACCI NE (#1) [facility] Start: 04-11-1996 COVID-19 VACCINE (#1) COVID-19 VACCI NE (#1) [facility] Start: 1995 HEPATITIS B (1 of 3 - 3-dose series) HEPATITIS B (1 of 3 - 3-dose series) [facility] Start: 1995 Hepatitis B Vaccine (1 of 3 - 3-dose series) Hepatitis B Vaccine (1 of 3 - 3-dose series) [facility] BACTERIAL VAGINOSIS NAAT BACTERI AL VAGINOSIS NAAT Lab Routine Vaginal discharge 09/13/2023 12:09 PM EST [facility] Work Phone: FRANCESCO/TRICHOMONAS NAAT FRANCESCO /TRICHOMONAS NAAT Lab Routine Vaginal discharge 09/13/2023 12:09 PM [facility] Work Phone: End: 02-28-2024 OBSTETRIC ULTRASOUND WHI OBSTETRIC ULTRASOUND WHI Anc Imaging Routine Supervision of high risk in third trimester History of thyroid disease Once per month for 5 Occurrences starting 09/01/2023 until 02/28/2024 [facility] Work Phone: Comment on above: Once per month for 5 Occurrences starting 09/01/2023 until 02/28/2024 Patient referral [facility] Work Phone: ROUTINE, GR OUP B STREP PCR ROUTINE, GROUP B STREP PCR Microbiology Routine Supervision of high risk in third trimester 09/13/2023 12:09 PM [facility] Work Phone: URINE OB DIP B/O URINE OB DIP B/ O Lab Routine 27 weeks gestation of Ordered: 07/12/2023 [facility] Work Phone: Comment on above: Ordered: 07/12/2023 [facility] Immunizations Immunization Date Immunization Notes Care Provider Keith joseph 07-21-2023 tetanus toxoid, redu aung diphtheria toxoid, and acellular pertussis vaccine, adsorbed Cortney Cash GALLERY OR MUSEUM CURATOR.CNM Work Phone: [facility] 07-11-2019 tetanus toxoid, redu aung diphtheria toxoid, and acellular pertussis vaccine, adsorbed Vilma Gray APRN.GARNETT ROOM WORKER Work Phone: [facility] 04-25-2018 tetanus toxoid, redu aung diphtheria toxoid, and acellular pertussis vaccine, adsorbed Vilma Gray APRN.GARNETT ROOM WORKER Work Phone: [facility] 08-02-2015 influenza virus vacc ine, unspecified formulation Leonardo Upton MD Work Phone: [facility] Payers Date Payer Category Payer Self-pay 2022 Medicaid [id number] 2019 Medicaid [id number] 2019 Medicaid [employer] [place] [id number] 2019-Present [phone] [address] [address] [place] [address] Medicaid [id number] Unknown [id number] Social History Date Type Detail Facility Start: 10-06-2020 [facility] sm[facility] [place] Start: 12-03-2013 End: 12-03-2021 History of tobacco use Cigarette Smoker [place] Start: 10-06-2020 Alcohol intake Current drinke r of alcohol (finding) [place] Start: 10-06-2020 Tobacco Comment unknown if norma ry day or some day smoker [place] Start: 10-06-2020 Alcohol Comment intoxicated on arrival to ED 10/05/20 [place] Start: 1995 Sex Assigned At Not on file [place] Start: 02-24-2022 End: 03-06-2022 Exposure to SARS-CoV-2 (event) Not sure [facility], [place] Start: 08-27-2021 End: 02-15-2023 Tobacco smoking status NHIS Ex-smoker [facility] Work Phone: Start: 08-27-2021 End: 03-25-2023 Cigarettes smoked current (pack per day) - Reported 1 [facility] Start: 08-27-2021 End: 02-15-2023 Tobacco use and exposure Smokeless tobacco non-user [facility] Work Phone: Start: 03-06-2022 End: 01-18-2024 Alcohol intake Ex-drinker (finding) [facility] Start: 12-08-2018 History SDOH Alcohol Comment occ, not while [facility] Start: 07-14-2021 [facility] Start: 12-03-2013 End: 12-03-2021 History of tobacco use Current smoker [facility] Work Phone: Start: 02-15-2023 Education 14 [facility] Start: 03-25-2023 End: 04-05-2023 Tobacco use panel [facility] Start: 10-06-2023 Tobacco smoking stat us NHIS Unknown if ever smoked [facility] Start: 09-01-2018 None [facility] Start: 1995 Sex Assigned At Female W [facility] Goals Date Patient Goal Desired Activity /State Personal health goal Functional Status Date Assessment Result Facility 08-19-2019 Are you deaf, or do you have serious difficulty hearing No 08/19/2019 1:11 PM Cortney Stephens RN [facility] 08-19-2019 Are you blind, or do you have serious difficulty seeing, even when wearing glasses No 08/19/2019 1:11 PM Cortney Stephens RN No [facility] 08-19-2019 Do you have serious difficulty walking or climbing stairs No 08/19/2019 1:11 PM Cortney Stephens RN No [facility] 08-19-2019 Do you have difficul ty dressing or bathing No 08/19/2019 1:11 PM Cortney Stephens RN No [facility] 08-19-2019 Because of a physica l, mental, or emotional condition, do you have difficulty doing errands alone such as visiting a physician's office or shopping No 08/19/2019 1:11 PM EDT Cortney Garcia RN No [facility] Mental Status Date Assessment Result Facility 08-19-2019 Because of a physica l, mental, or emotional condition, do you have serious difficulty concentrating, remembering, or making decisions No 08/19/2019 1:11 PM EDT Cortney Garcia RN No [facility] Clinical Notes 08-19-2019 to 05-09-2025 Telephone [...] have any questions, you can call Nurse sales development consultant back. [facility] 05-09-2025 Miscellaneous Notes Formattin g of [...] have any questions, you can call Nurse sales development consultant back. documented in this encounter [facility] 02-17-2024 Telephone encount er Note 2nd attempt to contact the patient to schedule colposcopy. [facility] mesg sent 01/10- not read Unable to leave vm mesg, phone not in service. A letter will be mailed to home. Nenita Butt Admin Machine [facility] 02-17-2024 Miscellaneous Notes Formattin g of this note might be different from the original. 2nd attempt to contact the patient to schedule colposcopy. MC mesg sent 01/10- not read Unable to leave vm mesg, phone not in service. A letter will be mailed to home. Nenita Butt Admin Machine [facility] 1st attempt to contact the patient to schedule colposcopy. Unable to reach patient, phone line unable to take calls at this time. Will attempt at later time. Nenita Butt Admin Machine [facility] documented in this encounter [facility] 02-15-2024 Telephone encount er Note 1st attempt to contact the patient to schedule colposcopy. Unable to reach patient, phone line unable to take calls at this time. Will attempt at later time. Nenita Butt Admin Machine [facility] 01-18-2024 Note HNO ID: [id number] Author: LAKEISHA FORTUNE APRN.GARNETT ROOM WORKER Service: ? Author Type: Nurse Practitioner Type: [...] bedtime. (Patient not taking: Reported on 11/24/2023) [id number] ps-folate 1 29 mg iron- 1 mg [...] tenderness or frontal sinus tenderness. Mouth/Throat: Lips: [place]. No lesions. Mouth: Mucous membranes are moist. [...] symptoms of dehydration (more content not included)... [facility] 01-18-2024 Instructions Lakeisha Fortune, CELESTE.[facility] - 01/18/2024 8:34 AM EDT - [...] treated with antibiotics. When to call the bottom bleacher If your child has a sore throat that persists (not one that goes away after her first drink in the morning), whether or not it is accompanied by fever, headache, stomachache, or extreme fatigue, you should call your bottom bleacher. That call should be made even more urgently if your child seems extremely ill, or if she has difficulty breathing or extreme trouble swallowing (causing her to drool). This may indicate a more serious infection. Treatment If the strep test shows that your child does have strep throat, your bottom bleacher will prescribe an antibiotic to be taken [...] the best solution. documented in this encounter [facility] 01-18-2024 History of Presen t illness [...] bedtime. (Patient not taking: Reported on 11/24/2023) [id number] ps-folate 1 29 mg iron- 1 mg [...] tenderness or frontal sinus tenderness. Mouth/Throat: Lips: [place]. No lesions. Mouth: Mucous membranes are moist. [...] in the next 2-3 days. Lakeisha Fortune APRN.GARNETT ROOM WORKER documented in this encounter [facility] 01-03-2024 Miscellaneous Notes Formattin g of [...] for today 01/03/2024 documented in this encounter [facility] 12-28-2023 Note HNO ID: [id number] Author: KARI RAMOS MD Service: ? Author Type: Physician Type: Progress Notes Filed: 12/28/2023 12:18 Note Text: Flight Operations Dispatch Clerk offered: Patient declinesAbdulaziz Maldonado is a 28 [...] positive occurs test: negative Nexplanon lot #: [id number] Exp date: 09/23/25 [facility]: [id number] UNIVERSAL PROTOCOL / SAFETY CHECKLIST Procedure to [...] contraception for 7 days. Kari Ramos MD [facility] 12-21-2023 Miscellaneous Notes Formattin g of this note might be different from the original. Third attempt to contact patient. Number not working. Letter sent. Marii Gonsales RN Attempted to call patient again but phone number is still not accepting calls. Consuelo Still RN Attempted to contact patient but number listed for patient is currently not accepting calls. Trellise message and letter sent. Appointment note for upcoming appointment tomorrow updated to notify of results. Marii Gonsales RN ----- Message from Gracy Ross MD sent at 12/06/2023 1:24 PM EST ----- Ascus-H and HPV + , needs colposcopy scheduled. documented in this encounter [facility] 11-24-2023 Note HNO ID: [id number] Author: GRACY RIVAS MD Service: ? Author Type: Physician Type: Progress Notes Filed: 11/24/2023 16:42 Note Text: Flight Operations Dispatch Clerk offered: Patient declines. VISIT Erica Toro is a 28 year old year old here for visit. Delivery Summary: 10/06/2024 ROS/ Recovery: Feeding: Breast feeding problems: None Menses since delivery: spotting Menstrual pattern prior to : Regular periods Evaro since delivery: Not resumed Depression: denies symptoms [...] external genitalia normal, normal Bartholin's glands, urethra, [place]'s glands, no vulvar lesions, no cervical lesions, [...] today., RTO for nexplanon Gracy Clark MD [facility] 10-07-2023 Discharge summary Note Date/Time October 07, 2023 8:40am [facility] Medical Records Department [address] [place] [address] Discharge Summary 10/07/23 0838 MR#: [id number] Acct: [id number] Name: ERICA TORO Rep #:[id number] : 1995 27 From: Krystian Valencia MD PCP: Care Physician,No Primary Status :ADM IN Location: QU026-2 Providers Date of Admission: 10/06/23 Primary Care [...] 81.4 H, Lymph % (Auto) 12.5 L, [place] % (Auto) 5.0, Eos % (Auto) 0.5, [...] Valencia MD; No Primary Care Physician~ Signed [facility] Work Phone: 1(919) 461-166212-14-2023 NoteHNO ID: [id number] Author: Kari Balderas RN Service: ? Author Type: Registered Nurse Type: Progress Notes Filed: 10/07/2023 8:41 AM Note Text: Patient delivered via at [facility] on 10/06/23 per Cortney Cash CNM. See OB Outcome note. [facility]as [facility] Note [facility] Medical Records Department [address] [place] [address] Discharge Summary 10/07/23 0838 MR#: [id number] Acct: [id number] Name: ERICA TORO Rep #: [id number] : 1995 27 From: Krystian Valencia MD PCP: Care Physician,No Primary Status:ADM IN Location: LY234-9 Providers Date of Admission: 10/06/23 Primary Care [...] 81.4 H, Lymph % (Auto) 12.5 L, [place] % (Auto) 5.0, Eos % (Auto) 0.5, [...] can be placed): Home, Self Care 10/07/23 9478 Cosigner Signature (if applicable): CC: Dr. Krystian Valencia MD; No [facility] Physician [facility] Progress note Author Krystian Valencia [facility] October 07, 2023 8:37am Note Date/Time October 07, 2023 8:37am [facility] Medical Records Department [address] [place] [address] Progress Note - OBGYN 10/07/23 0835 MR#: [id number] Acct: [id number] Name: ERICA TORO Rep #:[id number] : 1995 27 From: Krystian Valencia MD PCP: Care Physician,No Primary Status :ADM IN Location: OM600-1 Subjective Subjective Denies complaints Objective Data Objective [...] 81.4 H, Lymph % (Auto) 12.5 L, [place] % (Auto) 5.0, Eos % (Auto) 0.5, [...] Cosigner Signature (if applicable): CC: ~ Signed [facility] Work Phone: 1(183) 356-654812-13-2023 History and physical note Author Cortney Cash [facility] October 06, 2023 4:49pm Note Date/Time October 06, 2023 4:49pm [facility] Medical Records Department [address] [place] [address] H&P Exam - BEHAVIORAL SCIENCE CHAIR 10/06/23 1643 MR#: [id number] Acct: [id number] Name: ERICA TORO Rep #:[id number] : 1995 27 From: Cortney Cash CNM PCP: Care Physician,No Primary Status :ADM IN Location: QC690-8 HPI - General General Date of Admission: [...] of admission and is collaborating physician 10/06/23 5305 <Electronically signed by Cortney Cash CNM> Cosigner Signature (if applicable): CC: SURESH Cash; No Primary Care Physician~ Signed [facility] Work Phone: 1(864) 659-159512-13-2023 Procedure [facility] 10-05-2023 Miscellaneous Notes* Quick Notes [...] reviewed. Krystian Valencia MD [facility] Inst[facility]* Patient Instructions* s Cha Zaman - 10/05/2023 1:53 PM EST SEQUENTIAL SCREENINGS [facility] offers sequential screenings for women who [...] testing. It will require an appointment withour evidence technician. This is not an ultrasound performed [...] the above symptoms, contact our office at [phone] and ask to speak with anurse. After hours, you can call doctors registry at [phone] OR call [facility] at [phone] ask to have the doctor rn admission paged. If you consider this an emergency, dial 9-1- or go to your nearest emergency department. NEED HELP? Are you dealing with a violent or abusive relationship? Are you a victim of rape or sexual assult? Call [facility] ([place]) 24 hour Crisis Hotline: 407.375.7832 or 715-632-7825. MANUAL Your Guide to a Healthy manual is now on-line. Visit [email or web address] to download your free copy [facility] Miscellaneous Notes* Quick Notes - Gracy [...] week Gracy Clark MD [facility] Instructions* Patient Instructions* Marilyn Darden Ma - 09/27/2023 11:17 AM EST SEQUENTIAL SCREENINGS [facility] offers sequential screenings for women who [...] testing. It will require an appointment withour evidence technician. This is not an ultrasound performed [...] the above symptoms, contact our office at [phone] and ask to speak with anurse. After hours, you can call doctors registry at [phone] OR call [facility] at [phone] ask to have the doctor rn admission paged. If you consider this an emergency, dial 0-1-7 or go to your nearest emergency department. NEED HELP? Are you dealing with a violent or abusive relationship? Are you a victim of rape or sexual assult? Call [facility] ([facility] 24 hour Crisis Hotline: 693.589.2950 or 950-945-7887. MANUAL Your Guide to a Healthy manual is now on-line. Visit [email or web address] to download your free copy documented in this encounterFort Hamilton Hospital12-01-2023 NoteHNO ID: [id number] Author: Pat Wilkins MA Service: ? Author Type: Sql Server Dba Developer Type: Progress Notes Filed: 09/24/2023 12:51 PM Note Text: POPULATION HEALTH NAVIGATION OUTREACH Action/FYI 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 Patient Identified by Name and : YES, via phone Outreach Outcome/Action OB/PEDS field updated Did you use a PCP flex slot to schedule this appointment? N/A Reason for Outreach [place] Payer: Payor: [place] [employer] / Plan: [employer] [facility] / Product Type: Medicaid / Care Gap Reviewed:: N/A Reminder: Reminder note to check Health Maintenance for items below Health Maintenance items due: Hepatitis B Vaccine(1 of 3 - 3-dose series) Never done Covid-19 Vaccine(1) Never done Depression Assessment Never done Influenza Vaccine(1) due on 06/25/2023 Navigation Signature: Pat Hammonds MA September 24, 2023 12:51 [facility]12-01-2023 NotePatient Outreach (NETNAV) ERICA TORO ([id number]) 1995 F Date Time Provider Department 09/24/23 PAT WILKINS During your visit today, we recorded the following information about you: Pat Wilkins MA 09/24/2023 12:51 PM Signed POPULATION HEALTH NAVIGATION OUTREACH Action/FYI 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 Patient Identified by Name and : YES, via phone Outreach Outcome/Action OB/PEDS field updated Did you use a PCP flex slot to schedule this appointment? N/A Reason for Outreach Payer: Payor: [place] [employer] / Plan: [employer] [facility] / Product Type: Medicaid / Care Gap [...] Known Allergies) Date Reviewed: 09/13/2023 Reviewed by: aPt Nguyễn MA - Fully Assessed Reason for Visit: Population Health Navigation Outreach [3910] Cmt: Peds/OB Prescriptions as of 09/24/2023 - Lactobacillus acidophilus (FLORAJEN ACIDOPHILUS) 20 billion cell cap Take 1 capsule by mouth once daily. - doxylamine (UNISOM, DOXYLAMINE,) 25 mg tab Take 1 tablet by mouth daily at bedtime. - hi44-bfel ps-folate 1 29 mg iron- 1 mg [...] *08/18/2023 Encounter Status:Closed by PAT WILKINS on 09/24/23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 Patient Identified by Name and : YES, via phone Outreach Outcome/Action OB/PEDS field updated Did you use a PCP flex slot to schedule this appointment? N/A Reason for Outreach [place] Payer: Payor: [place] / Plan: [employer] MEDICAID OF [place] / Product Type: Medicaid / Care Gap Reviewed:: N/A Reminder: Reminder note to check Health Maintenance for items below Health Maintenance items due: Hepatitis B Vaccine(1 of 3 - 3-dose series) Never done Covid-19 Vaccine(1) Never done Depression Assessment Never done Influenza Vaccine(1) due on 06/25/2023 Navigation Signature: Pat Hammonds MA September 24, 2023 12:51 PM documented in this encounterFort Hamilton Hospital11-27-2023 Miscellaneous Notes* Quick Notes - Maritza [...] negative Maritza Richard APRN.CNM documented in this encounterFort Hamilton Hospital11-27-2023 Instructions* Patient Instructions* Félix Knight Cma - 09/20/2023 2:19 PM EST SEQUENTIAL SCREENINGS [facility] offers sequential screenings for women who [...] testing. It will require an appointment withour evidence technician. This is not an ultrasound performed [...] the above symptoms, contact our office at [phone] and ask to speak with anurse. After hours, you can call doctors registry at [phone] OR call [facility] at [phone] ask to have the doctor rn admission paged. If you consider this an emergency, dial 9-1-1 or go to your nearest emergency department. NEED HELP? Are you dealing with a violent or abusive relationship? Are you a victim of rape or sexual assult? Call [facility] ([place]) 24 hour Crisis Hotline: 392.177.2616 or 621-806-6195. MANUAL Your Guide to a Healthy manual is now on-line. Visit [email or web address] to download your free copy documented in this encounterFort Hamilton Hospital11-21-2023 Miscellaneous Notes* Telephone Encounter - Kari [...] needed. Dulce Shannon APRN.CNP documented in this encounterFort Hamilton Hospital11-20-2023 Miscellaneous Notes* Quick Notes - Dulce [...] results. Dulce Shannon APRN.CNP documented in this encounterFort Hamilton Hospital11-20-2023 Instructions* Patient Instructions* Pat NguyễnCYNTHIA - 09/13/2023 11:20 AM EST SEQUENTIAL SCREENINGS [facility] offers sequential screenings for women who [...] testing. It will require an appointment withour evidence technician. This is not an ultrasound performed [...] the above symptoms, contact our office at [phone] and ask to speak with anurse. After hours, you can call doctors registry at [phone] OR call [facility] at [phone] ask to have the doctor rn admission paged. If you consider this an emergency, dial 9-1-1 or go to your nearest emergency department. NEED HELP? Are you dealing with a violent or abusive relationship? Are you a victim of rape or sexual assult? Call [facility] ([place]) 24 hour Crisis Hotline: 128.153.9862 or 407-846-0632. MANUAL Your Guide to a Healthy manual is now on-line. [email or web address] to download your free copy documented in this encounterFort Hamilton Hospital11-09-2023 Miscellaneous Notes* Telephone Encounter - Anahy [...] feeling? Lon Aranda APRN.NGUYEN documented in this encounterFort Hamilton Hospital11-09-2023 Miscellaneous Notes* Telephone Encounter - Kari [...] hydrated and restoring electrolytes with a Body Whiteface Lyte. Let me know if there are any questions! Lon Aranda APRN.CNP documented in this encounterFort Hamilton Hospital11-08-2023 Miscellaneous Notes* Quick Notes - Lon [...] need iron transfusions depending on result 6. [place] Hick's contraction - ICD9: 644.10, ICD10: O47.9 - Painful, random - Hydration encouraged - 1 cm, 60%, -2 - PTL precautions reviewed. Lon Aranda APRN.CNP Medical Decision Making: Problems: Moderate: New problem with uncertain prognosis Data: Unique test(s) ordered: 3+ Risk: Minimal: Minimal risk from testing/treatment Medical Decision Making Level: 4 - Moderate documented in this encounterFort Hamilton Hospital11-08-2023 Instructions* Patient Instructions* s Cha Zaman - 09/01/2023 2:10 PM EST SEQUENTIAL SCREENINGS [facility] offers sequential screenings for women who [...] testing. It will require an appointment withour evidence technician. This is not an ultrasound performed [...] the above symptoms, contact our office at [phone] and ask to speak with anurse. After hours, you can call [facility] at [phone] OR call [facility] at [phone] ask to have the doctor rn admission paged. If you consider this an emergency, dial 9-1-7 or go to your nearest emergency department. NEED HELP? Are you dealing with a violent or abusive relationship? Are you a victim of rape or sexual assult? Call [facility] ([place]) 24 hour Crisis Hotline: 369.217.3636 or 445-693-2112. MANUAL Your Guide to a Healthy manual is now on-line. Visit [email or web address] to download your free copy documented in this encounterFort Hamilton Hospital10-25-2023 History of Past illness Narrative* Problem Noted Date Diagnosed Date Resolved Date Anemia complicating pregnanc y, third trimester 08/18/2023 11/24/2023 Current with histo ry of spontaneous during prior 02/15/2023 11/24/19 24 Overview: 02/15/2023atient had a history of a miscarriage August 2021. Denies any bleeding pain or cramping this .TKRN Subchorionic hematoma in first trimester 09/08/2021 02/19/2023 Overview: 09/08/21- [facility] ED US report. Cortney Cash APRN.CNM [...] of this encounter (statuses as of 12/21/2023) [facility] History of Past illness Narrative* Problem Noted Date Diagnosed Date Resolved Date Anemia complicating pregnanc y, third trimester 08/18/2023 11/24/2023 Current with histo ry of spontaneous during prior 02/15/2023 11/24/19 24 Overview: 02/15/2023atient had a history of a miscarriage August 2021. Denies any bleeding pain or cramping this .TKRN Subchorionic hematoma in first trimester 09/08/2021 02/19/2023 Overview: 09/08/21- [facility] ED US report. Cortney Cash APRN.CNM [...] of this encounter (statuses as of 01/03/2024) [facility] History of Past illness Narrative* Problem Noted Date Diagnosed Date Resolved Date Anemia complicating pregnanc y, third trimester 08/18/2023 11/24/2023 Current with histo ry of spontaneous during prior 02/15/2023 11/24/19 Overview: 02/15/2023atient had a history of a miscarriage August 2021. Denies any bleeding pain or cramping this .TKRN Subchorionic hematoma in first trimester 09/08/2021 02/19/2023 Overview: 09/08/21- [facility] ED US report. Cortney Cash APRN.CNM [...] of this encounter (statuses as of 01/18/2024) [facility] Miscellaneous Notes* Quick Notes - Cortney [...] weeks Cortney Cash APRN.CNM documented in this encounterFort Hamilton Hospital10-25-2023 Instructions* Patient Instructions* Pat Nguyễn MA - 08/18/2023 10:22 AM EDT SEQUENTIAL SCREENINGS [facility] offers sequential screenings for women who [...] testing. It will require an appointment withour evidence technician. This is not an ultrasound performed [...] the above symptoms, contact our office at [phone] and ask to speak with anurse. After hours, you can call doctors registry at [phone] OR call [facility] at [phone] ask to have the doctor rn admission paged. If you consider this an emergency, dial 9-1-0 or go to your nearest emergency department. NEED HELP? Are you dealing with a violent or abusive relationship? Are you a victim of rape or sexual assult? Call [facility] ([facility] 24 hour Crisis Hotline: 175.308.8610 or 308-482-0053. MANUAL Your Guide to a Healthy manual is now on-line. Visit [email or web address] to download your free copy documented in this encounterFort Hamilton Hospital09-29-2023 Miscellaneous Notes* Telephone Encounter - Anahy Wood RN - 07/23/2023 4:59 PM EDT Patient did view Ti Knighthart message at 10:34 AM on 07/23/2023. * Telephone Encounter - Priyanka oDe LPN - 07/22/2023 2:23 PM EDT Message left asking pt to call the office for results. Pt was also sent [employer] message with results and further orders. Will [...] weeks. Cortney Cash APRN.CNM documented in this encounterFort Hamilton Hospital09-27-2023 NoteHNO ID: [id number] Author: Marilyn Darden Ma Service: ? Author [...] severely ill: Yes Patient denies history of Guillain-Chaffee Syndrome (a severe paralytic illness): Yes Tdap Adacel injection was given without incident. See immunizations for details of immunizations administered today. VIS sheet provided: Yes Provider Vandana was present in office at time of injection. Marilyn Darden [facility]09-18-2023 Miscellaneous Notes* Quick Notes - Gracy Rivas MD - 07/12/2023 1:58 PM EDT DM- had some light bleeding yesterday and today with mild cramping- she describes no pain with it. Denies LOF. Pt reports good FM. Denies Evaro. Denies abnormal discharge or odor. Exam: Gen: female in NAD Abd: soft, gravid, non tender Speculum; +thick white dc c/w yeast. No blood in vault, no active bleeding. Cervix appears thick and closed. VE: C/T/H @ 27.3 weeks- Vaginal bleeding 1) yeast infection- Monistat 7 OTC 2) PO fluids 3) Urine culture 4) S/sx PTL reviewed Gracy Clark MD documented in this encounterFort Hamilton Hospital09-18-2023 Instructions* Patient Instructions* Pat Nguyễn MA - 07/12/2023 1:13 PM EDT SEQUENTIAL SCREENINGS [facility] offers sequential screenings for women who [...] testing. It will require an appointment withour evidence technician. This is not an ultrasound performed [...] the above symptoms, contact our office at [phone] and ask to speak with anurse. After hours, you can call doctors registry at [phone] OR call [facility] at [phone] ask to have the doctor rn admission paged. If you consider this an emergency, dial 9-0-6 or go to your nearest emergency department. NEED HELP? Are you dealing with a violent or abusive relationship? Are you a victim of rape or sexual assult? Call [facility] ([place]) 24 hour Crisis Hotline: 730.906.1803 or 796-319-3117. MANUAL Your Guide to a Healthy manual is now on-line. [email or web address] to download your free copy documented in this encounterFort Hamilton Hospital09-18-2023 Miscellaneous Notes* Telephone Encounter - Priyanka [...] advise. Anahy Wood RN documented in this encounterFort Hamilton Hospital08-30-2023 Miscellaneous Notes* Quick Notes - Cortney Cash APRN.CNM - 06/23/2023 2:39 PM EDT rEica Toro is a 27 year old female [...] GCT. Cortney Cash APRN.CNM documented in this encounterFort Hamilton Hospital08-30-2023 Instructions* Patient Instructions* Félix Knight Cma - 06/23/2023 2:25 PM EDT SEQUENTIAL SCREENINGS [facility] offers sequential screenings for women who [...] testing. It will require an appointment withour evidence technician. This is not an ultrasound performed [...] the above symptoms, contact our office at [phone] and ask to speak with anurse. After hours, you can call doctors registry at [phone] OR call [facility] at [phone] ask to have the doctor rn admission paged. If you consider this an emergency, dial 3-4-5 or go to your nearest emergency department. NEED HELP? Are you dealing with a violent or abusive relationship? Are you a victim of rape or sexual assult? Call [facility] ([place]) 24 hour Crisis Hotline: 553.494.9983 or 868-297-2378. MANUAL Your Guide to a Healthy manual is now on-line. [email or web address] to download your free copy documented in this encounterFort Hamilton Hospital08-09-2023 Miscellaneous Notes* Telephone Encounter - Kari Balderas RN - 06/02/2023 4:50 PM EDT Faxed * Telephone Encounter - Kari Balderas RN - 06/02/2023 4:21 PM EDT [id number] [facility] To CP to sign. Kari Balderas RN documented in this encounterFort Hamilton Hospital08-02-2023 Miscellaneous Notes* Quick Notes - Gracy [...] wks Gracy Clark MD documented in this encounterFort Hamilton Hospital08-02-2023 Instructions* Patient Instructions* Marilyn Darden Ma - 05/26/2023 1:46 PM EDT SEQUENTIAL SCREENINGS [facility] offers sequential screenings for women who [...] testing. It will require an appointment withour evidence technician. This is not an ultrasound performed [...] the above symptoms, contact our office at [phone] and ask to speak with anurse. After hours, you can call [facility] registry at [phone] OR call [facility] at [phone] ask to have the doctor rn admission paged. If you consider this an emergency, dial 9-1-1 or go to your nearest emergency department. NEED HELP? Are you dealing with a violent or abusive relationship? Are you a victim of rape or sexual assult? Call [facility] ([place]) 24 hour Crisis Hotline: 853.239.3133 or 704-836-9732. MANUAL Your Guide to a Healthy manual is now on-line. Visit [email or web address] to download your free copy documented in this encounterFort Hamilton Hospital06-28-2023 Miscellaneous Notes* Quick Notes - Maritza [...] PNV Maritza Richard APRN.CNM documented in this encounterFort Hamilton Hospital06-28-2023 Instructions* Patient Instructions* Marilyn Darden Ma - 04/21/2023 3:30 PM EDT SEQUENTIAL SCREENINGS [facility] offers sequential screenings for women who [...] testing. It will require an appointment withour evidence technician. This is not an ultrasound performed [...] the above symptoms, contact our office at [phone] and ask to speak with anurse. After hours, you can call doctors registry at [phone] OR call [facility] at [phone] ask to have the doctor rn admission paged. If you consider this an emergency, dial 9-2 or go to your nearest emergency department. NEED HELP? Are you dealing with a violent or abusive relationship? Are you a victim of rape or sexual assult? Call [facility] ([place]) 24 hour Crisis Hotline: 818.280.5140 or 342-380-2857. MANUAL Your Guide to a Healthy manual is now on-line. Visit [email or web address] to download your free copy documented in this encounterFort Hamilton Hospital06-12-2023 NoteHNO ID: [id number] Author: Leonardo Upton MD Service: ? Author Type: Physician Type: Progress Notes Filed: 04/05/2023 5:35 PM Note Text: Flight Operations Dispatch Clerk offered: Patient declines. Maldonado is a 27 [...] Follow up . +FHT today. Leonardo Upton, DOCDunlap [facility]06-01-2023 Miscellaneous Notes* Quick Notes - Cortney [...] colposcopy. Cortney Cash APRN.CNM documented in this encounterFort Hamilton Hospital06-01-2023 Instructions* Patient Instructions* Félix Knight Cma - 03/25/2023 2:43 PM EDT SEQUENTIAL SCREENINGS [facility] offers sequential screenings for women who [...] testing. It will require an appointment withour evidence technician. This is not an ultrasound performed [...] the above symptoms, contact our office at [phone] and ask to speak with anurse. After hours, you can call doctors registry at [phone] OR call [facility] at [phone] ask to have the doctor rn admission paged. If you consider this an emergency, dial 0-3-2 or go to your nearest emergency department. NEED HELP? Are you dealing with a violent or abusive relationship? Are you a victim of rape or sexual assult? Call [facility] ([place]) 24 hour Crisis Hotline: 129.786.2822 or 988-512-9400. MANUAL Your Guide to a Healthy manual is now on-line. [email or web address] to download your free copy documented in this encounterFort Hamilton Hospital05-09-2023 Miscellaneous Notes* Telephone Encounter - Marii [...] answer and unable to leave a message. [employer] message sent to patient. Marii Gonsales RN * Telephone Encounter - Marii Gonsales RN - 02/26/2023 11:44 AM EDT ----- Message from Maritza Richard APRN.CNM sent at 02/26/2023 11:35 AM EDT ----- Please notify patient ASCUS with positive HR HPV. Will need colposcopy with physician after 12 weeks. Thank you, Maritza Richard APRN.CNM documented in this encounterFort Hamilton Hospital04-28-2023 NoteHNO ID: [id number] Author: Maritza Richard APRN.CNM Service: ? Author Type: Yeast Culture Developer Type: Progress Notes Filed: 02/19/2023 7:13 PM Note Text: OB point of care ultrasound was performed. See imaging tab for details. Maritza Richard APRN.CNCleveland [facility]04-27-2023 NoteHNO ID: [id number] Author: Maritza Richard APRN.CNM Service: ? Author Type: Yeast Culture Developer Type: Progress Notes Filed: 02/19/2023 7:17 PM [...] use: No Multivitamin with Folic acid: Yes Jew or heritage: No Would refuse blood transfusion [...] Partner: Name: Jaden Childs Age: 27 Occupation: [employer]. Gender: Male History of STDs: None PAST [...] Negative for: Swelling, Pain, (more content not included)...[facility]04-24-2023 History of Present illness Narrative* Manju [...] Living: None, Comments: None documented in this encounterFort Hamilton Hospital04-24-2023 Miscellaneous Notes* Quick Notes - Manju [...] insurance coverage.Manju Calvo RN documented in this encounterFort Hamilton Hospital05-13-2022 Instructions* Patient Instructions* Vilma Gray APRN.GARNETT ROOM WORKER - 03/06/2022 11:25 AM EDT Oral Contraceptives: [...] pills. Theseare formulated to give you a senior policy analyst period. Unless otherwise instructed, you should start [...] less iron deficiency anemia in pill users. FPC use is associated with a decreased incidence [...] and mild fluid retention. There is no shelter weight gain with the use of the [...] for necessary health information. 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 documented in this encounterFort Hamilton Hospital11-15-2021 History of Past illness Narrative* Problem Noted Date Resolved Date Subchorionic hematoma in first trimester 021 02/19/2023 Overview: 09/08/21- [facility] ED US report. Cortney Cash APRN.CNM [...] of this encounter (statuses as of 03/02/2023) [facility] History of Past illness Narrative* Problem Noted Date Resolved Date Subchorionic hematoma in first trimester 021 02/19/2023 Overview: 09/08/21- [facility] ED US report. Cortney Cash APRN.ARCADIOM [...] of this encounter (statuses as of 03/08/2023) [facility] History of Past illness Narrative* Problem Noted Date Resolved Date Subchorionic hematoma in first trimester 021 02/19/2023 Overview: 09/08/21- [facility] ED US report. Cortney Cash APRN.CNM [...] of this encounter (statuses as of 03/26/2023) [facility] History of Past illness Narrative* Problem Noted Date Resolved Date Subchorionic hematoma in first trimester 021 02/19/2023 Overview: 09/08/21- [facility] ED US report. Cortney Cash APRN.CNM [...] of this encounter (statuses as of 03/26/2023) [facility] History of Past illness Narrative* Problem Noted Date Resolved Date Subchorionic hematoma in first trimester 021 02/19/2023 Overview: 09/08/21- [facility] ED US report. Cortney Cash APRN.CNM [...] of this encounter (statuses as of 04/22/2023) [facility] History of Past illness Narrative* Problem Noted Date Diagnosed Date Resolved Date Subchorionic hematoma in first trimester 09/08/2021 02/19/2023 Overview: 09/08/21- [facility] ED US report. Cortney Cash APRN.CNM [...] of this encounter (statuses as of 05/27/2023) [facility] History of Past illness Narrative* Problem Noted Date Diagnosed Date Resolved Date Subchorionic hematoma in first trimester 09/08/2021 02/19/2023 Overview: 09/08/21- [facility] ED US report. Cortneyanita Cash APRN.CNM [...] of this encounter (statuses as of 05/27/2023) [facility] History of Past illness Narrative* Problem Noted Date Diagnosed Date Resolved Date Subchorionic hematoma in first trimester 09/08/2021 02/19/2023 Overview: 09/08/21- [facility] ED US report. Cortney Cash APRN.ARCADIOM [...] of this encounter (statuses as of 06/03/2023) [facility] History of Past illness Narrative* Problem Noted Date Diagnosed Date Resolved Date Subchorionic hematoma in first trimester 09/08/2021 02/19/2023 Overview: 09/08/21- [facility] ED US report. Cortney Cash APRN.CNM [...] of this encounter (statuses as of 06/15/2023) [facility]11-15-2021 History of Past illness Narrative* Problem Noted Date Diagnosed Date Resolved Date Subchorionic hematoma in first trimester 09/08/2021 02/19/2023 Overview: 09/08/21- [facility] ED US report. Cortney Cash APRN.CNM [...] of this encounter (statuses as of 06/24/2023) [facility]-2021 History of Past illness Narrative* Problem Noted Date Diagnosed Date Resolved Date Subchorionic hematoma in first trimester 09/08/2021 02/19/2023 Overview: 09/08/21- [facility] ED US report. Cortney Cash APRN.CNM [...] of this encounter (statuses as of 06/29/2023) [facility]-15-2021 History of Past illness Narrative* Problem Noted Date Diagnosed Date Resolved Date Subchorionic hematoma in first trimester 09/08/2021 02/19/2023 Overview: 09/08/21- [facility] ED US report. Cortney Cash APRN.CNM [...] of this encounter (statuses as of 07/12/2023) [facility] History of Past illness Narrative* Problem Noted Date Diagnosed Date Resolved Date Subchorionic hematoma in first trimester 09/08/2021 02/19/2023 Overview: 09/08/21- [facility] ED US report. Cortney CashCELESTE.CNM Vaginal [...] of this encounter (statuses as of 07/13/2023) [facility] History of Past illness Narrative* Problem Noted Date Diagnosed Date Resolved Date Subchorionic hematoma in first trimester 09/08/2021 02/19/2023 Overview: 09/08/21- [facility] ED US report. Cortney Cash APRN.ARCADIOM [...] of this encounter (statuses as of 07/24/2023) [facility] History of Past illness Narrative* Problem Noted Date Diagnosed Date Resolved Date Subchorionic hematoma in first trimester 09/08/2021 02/19/2023 Overview: 09/08/21- [facility] ED US report. Cortney Cash APRN.CNM [...] of this encounter (statuses as of 08/18/2023) [facility] History of Past illness Narrative* Problem Noted Date Diagnosed Date Resolved Date Subchorionic hematoma in first trimester 09/08/2021 02/19/2023 Overview: 09/08/21- [facility] ED US report. Cortney Cash APRN.CNM [...] of this encounter (statuses as of 09/02/2023) [facility] History of Past illness Narrative* Problem Noted Date Diagnosed Date Resolved Date Subchorionic hematoma in first trimester 09/08/2021 02/19/2023 Overview: 09/08/21- [facility] ED US report. Cortney Cash APRN.ARCADIOM [...] of this encounter (statuses as of 09/02/2023) [facility] History of Past illness Narrative* Problem Noted Date Diagnosed Date Resolved Date Subchorionic hematoma in first trimester 09/08/2021 02/19/2023 Overview: 09/08/21- [facility] ED US report. Cortney Cash APRN.CNM [...] of this encounter (statuses as of 09/03/2023) [facility] History of Past illness Narrative* Problem Noted Date Diagnosed Date Resolved Date Subchorionic hematoma in first trimester 09/08/2021 02/19/2023 Overview: 09/08/21- [facility] ED US report. Cortney PrattCELESTE deluna.CNM [...] of this encounter (statuses as of 09/13/2023) [facility] History of Past illness Narrative* Problem Noted Date Diagnosed Date Resolved Date Subchorionic hematoma in first trimester 09/08/2021 02/19/2023 Overview: 09/08/21- [facility] ED US report. Cortney Cash APRN.ARCADIOM [...] of this encounter (statuses as of 09/14/2023) [facility] History of Past illness Narrative* Problem Noted Date Diagnosed Date Resolved Date Subchorionic hematoma in first trimester 09/08/2021 02/19/2023 Overview: 09/08/21- [facility] ED report. Cortney Cash APRN.CNM Vaginal [...] of this encounter (statuses as of 09/21/2023) [facility] History of Past illness Narrative* Problem Noted Date Diagnosed Date Resolved Date Subchorionic hematoma in first trimester 09/08/2021 02/19/2023 Overview: 09/08/21- [facility] ED US report. Cortney Cash APRN.ARCADIOM [...] of this encounter (statuses as of 09/21/2023) [facility] History of Past illness Narrative* Problem Noted Date Diagnosed Date Resolved Date Subchorionic hematoma in first trimester 09/08/2021 02/19/2023 Overview: 09/08/21- [facility] ED US report. Cortney Cash APRN.ARCADIOM [...] of this encounter (statuses as of 09/24/2023) [facility] History of Past illness Narrative* Problem Noted Date Diagnosed Date Resolved Date Subchorionic hematoma in first trimester 09/08/2021 02/19/2023 Overview: 09/08/21- [facility] ED US report. Cortney Cash APRN.CNM [...] of this encounter (statuses as of 09/27/2023) [facility] History of Past illness Narrative* Problem Noted Date Diagnosed Date Resolved Date Subchorionic hematoma in first trimester 09/08/2021 02/19/2023 Overview: 09/08/21- [facility] ED US report. Cortney CashCELESTE.CNM Vaginal [...] of this encounter (statuses as of 10/06/2023) [facility] History of Past illness Narrative* Problem [...] of this encounter (statuses as of 03/06/2022) [facility] History of Past illness Narrative* Problem [...] of this encounter (statuses as of 02/16/2023) [facility] Diagnosis Irregular menses- Primary Irregular menstrual cycle Encounter for BCP ( control pills) initial prescription General counseling for prescription of oral contraceptives General counseling and advice for contraceptive management Other general counseling and advice for contraceptive management [facility] Current with history of spontaneous during prior - Primary History of bipolar disorder Personal history of affective disorder History of alcohol abuse Nondependent alcohol abuse, in remission History of thyroid disorder Patient request for diagnostic testing Other specified examination [facility] Diagnosis Encounter to determine viability of , single or unspecified fetus- Primary with uncertain viability, single or unspecified [facility] 11 weeks [facility] of - Primary state, incidental [facility] Diagnosis Encounter for (NT) nuchal translucency scan- Primary Other specified screening 11 weeks gestation of state, incidental [facility] Diagnosis 15 weeks gestation of - Primary state, incidental [facility] Diagnosis Encounter for supervision of other normal in second trimester- Primary 20 weeks gestation of state, incidental [facility] Diagnosis Encounter for anatomic survey- Primary 20 weeks gestation of state, incidental [facility] Diagnosis Encounter for follow-up ultrasound of anatomy- Primary [facility] Diagnosis 24 weeks gestation of - Primary state, incidental Encounter for supervision of other normal in second trimester [facility] Diagnosis Encounter for follow-up ultrasound of anatomy- Primary 25 weeks gestation of state, incidental [facility] Diagnosis Spotting in - Primary Spotting complicating , unspecified as to episode of care or not applicable Bloody show and cramping in early Threatened , antepartum 27 weeks gestation of state, incidental [facility] Diagnosis 32 weeks gestation of - Primary state, incidental Encounter for supervision of other normal in third trimester Anemia complicating , third trimester [facility] Diagnosis Supervision of high risk in third trimester- Primary Unspecified high-risk 34 weeks gestation of state, incidental History of thyroid disease Personal history of other endocrine, metabolic, and immunity disorders Migraine with aura and without status migrainosus, not intractable Migraine with aura, without mention of intractable migraine without mention of status migrainosus Anemia complicating , third trimester [place] Hick's contraction Other threatened labor, unspecified as to episode of care [facility] Diagnosis 36 weeks gestation of - Primary state, incidental Supervision of high risk in third trimester Unspecified high-risk Vaginal discharge Leukorrhea, not specified as infective [facility] Diagnosis Encounter for ultrasound to check growth- Primary Encounter for routine screening for malformation using ultrasonics Supervision of high risk in third trimester Unspecified high-risk History of thyroid disease Personal history of other endocrine, metabolic, and immunity disorders 37 weeks gestation of state, incidental [facility] Diagnosis Supervision of high risk in third trimester- Primary Unspecified high-risk 37 weeks gestation of state, incidental [facility] Diagnosis Supervision of high risk in third trimester- Primary Unspecified high-risk Anemia complicating , third trimester 38 weeks gestation of state, incidental [facility] Diagnosis Supervision of high risk in third trimester- Primary Unspecified high-risk 39 weeks gestation of state, incidental [facility] Diagnosis Strep throat- Primary Streptococcal sore throat Nausea and vomiting, unspecified vomiting type [facility] Diagnosis Onset Date Resolution Status 39 weeks gestation of acute Alcohol abuse acute Bipolar disorder acute Care and examination of lactating mother acute Multiparous acute Post traumatic stress disorder (PTSD) acute Spontaneous onset of labor a cute Spontaneous rupture of amniotic membranes acute (spontaneous vaginal delivery) [facility] Work Phone: Reason for referral (narrative)* Diagnostic Procedure Only (Routine) - Authorized Specialty Diagnoses / Procedures Referred By Contac t Referred To Contact [facility] Diagnoses 15 weeks gestation of Procedures OBSTETRIC ULTRASOUND WHI US PREG UTERUS AFTER 1ST TRIMEST GESTATION Maritza Richard APRN.CNM [address] [place] [address] [facility] [employer] [place] [address] Referral ID Status Reason Start Date Expiration Date Visits Requested Visits Authorized [id number] Authorized Auto-Generat ed Referral 04/21/2023 04/20/2024 1 1 [facility] for referral (narrative)* Diagnostic Procedure Only (Routine) - Authorized Specialty Diagnoses / Procedures Referred By Contac t Referred To Contact [facility] Diagnoses Encounter for follow-up ultrasound of anatomy Procedures OBSTETRIC ULTRASOUND WHI US PREG UTERUS AFTER 1ST TRIMEST GESTATION Dulce Shannon APRN.CNP [address] [place] [address] [facility] [address] [place] [address] Referral ID Status Reason Start Date Expiration Date Visits Requested Visits Authorized [id number] Authorized Auto-Generat ed Referral 06/14/2023 06/13/2024 1 1 [facility] for referral (narrative)* Diagnostic Procedure Only (Routine) - Authorized Specialty Diagnoses / Procedures Referred By Contac t Referred To Contact [facility] Diagnoses Supervision of high risk in third trimester History of thyroid disease Procedures OBSTETRIC ULTRASOUND WHI US PREG UTERUS AFTER 1ST TRIMEST GESTATION Lon Aranda APRN.CNP [address] [place] [address] [facility] [address] [place] [address] Referral ID Status Reason Start Date Expiration Date Visits Requested Visits Authorized [id number] Authorized Auto-Generat ed Referral 09/01/2023 08/31/2024 5 1 * Consult, Test, Treat (Routine) - Authorized Specialty Diagnoses / Procedures Referred By Contac t Referred To Contact Neurology Diagnoses Migraine with aura and without status migrainosus, not intractable Procedures CONSULT TO NEUROLOGY OFFICE/OUTPATIENT [facility] MDM 60-74 MINUTES Lon Aranda APRN.CNP [address] 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 Advance Directive(s) 10/05/2019 9:33 AM Advance Directive(s) 09/20/2018 9:32 PM Advance Directive(s) 08/01/2018 7:06 PM Advance Directive Response Recorded Date/ Time Living Will No October 06 2:07pm Power of Project Controller No October 06, 2023 2:07pm Hospital Course [...] section and content) DATE CREATED AUTHOR 10/03/2018 [facility] DATE CREATED AUTHOR AUTHOR'S ORGANIZ ATION 10/08/2019 [facility] DATE CREATED AUTHOR AUTHOR'S ORGANIZ ATION 2019 [facility] DATE CREATED AUTHOR AUTHOR'S ORGANIZ ATION 12/22/2019 [facility] DATE CREATED AUTHOR AUTHOR'S ORGANIZ ATION 10/08/2020 [facility] DATE CREATED AUTHOR AUTHOR'S ORGANIZ ATION 10/09/2020 [facility] DATE CREATED AUTHOR AUTHOR'S ORGANIZ ATION 10/13/2023 [facility] DATE CREATED AUTHOR AUTHOR'S ORGANIZ ATION 02/19/[address] [facility] Surgical History (unrecogniz ed section and [...] or prosecute any alcohol or drug abuse patient.[facility] the event this information is protected by the Federal Confidentiality of Alcohol and Drug Abuse Patient Records regulations: The Federal rules restrict any use of the information to criminally investigate or prosecute any alcohol or drug abuse patient.[facility] the event this information is protected by the Federal Confidentiality of Alcohol and Drug Abuse Patient Records regulations: The Federal rules restrict any use of the information to criminally investigate or prosecute any alcohol or drug abuse patient.[facility] the event this information is protected by the Federal Confidentiality of Alcohol and Drug Abuse Patient Records regulations: The Federal rules restrict any use of the information to criminally investigate or prosecute any alcohol or drug abuse patient.[facility] the event this information is protected by the Federal Confidentiality of Alcohol and Drug Abuse Patient Records regulations: The Federal rules restrict any use of the information to criminally investigate or prosecute any alcohol or drug abuse patient.[facility] the event this information is protected by the Federal Confidentiality of Alcohol and Drug Abuse Patient Records regulations: The Federal rules restrict any use of the information to criminally investigate or prosecute any alcohol or drug abuse patient.[facility] the event this information is protected by the Federal Confidentiality of Alcohol and Drug Abuse Patient Records regulations: The Federal rules restrict any use of the information to criminally investigate or prosecute any alcohol or drug abuse patient.[facility] the event this information is protected by the Federal Confidentiality of Alcohol and Drug Abuse Patient Records regulations: The Federal rules restrict any use of the information to criminally investigate or prosecute any alcohol or drug abuse patient.[facility] the event this information is protected by the Federal Confidentiality of Alcohol and Drug Abuse Patient Records regulations: The Federal rules restrict any use of the information to criminally investigate or prosecute any alcohol or drug abuse patient.[facility] the event this information is protected by the Federal Confidentiality of Alcohol and Drug Abuse Patient Records regulations: The Federal rules restrict any use of the information to criminally investigate or prosecute any alcohol or drug abuse patient.[facility] the event this information is protected by the Federal Confidentiality of Alcohol and Drug Abuse Patient Records regulations: The Federal rules restrict any use of the information to criminally investigate or prosecute any alcohol or drug abuse patient.[facility]In the event this information is protected by the Federal Confidentiality of Alcohol and Drug Abuse Patient Records regulations: The Federal rules restrict any use of the information to criminally investigate or prosecute any alcohol or drug abuse patient.[facility] the event this information is protected by the Federal Confidentiality of Alcohol and Drug Abuse Patient Records regulations: The Federal rules restrict any use of the information to criminally investigate or prosecute any alcohol or drug abuse patient.[facility]In the event this information is protected by the Federal Confidentiality of Alcohol and Drug Abuse Patient Records regulations: The Federal rules restrict any use of the information to criminally investigate or prosecute any alcohol or drug abuse patient.[facility] the event this information is protected by the Federal Confidentiality of Alcohol and Drug Abuse Patient Records regulations: The Federal rules restrict any use of the information to criminally investigate or prosecute any alcohol or drug abuse patient.[facility] the event this information is protected by the Federal Confidentiality of Alcohol and Drug Abuse Patient Records regulations: The Federal rules restrict any use of the information to criminally investigate or prosecute any alcohol or drug abuse patient.[facility] the event this information is protected by the Federal Confidentiality of Alcohol and Drug Abuse Patient Records regulations: The Federal rules restrict any use of the information to criminally investigate or prosecute any alcohol or drug abuse patient.[facility] the event this information is protected by the Federal Confidentiality of Alcohol and Drug Abuse Patient Records regulations: The Federal rules restrict any use of the information to criminally investigate or prosecute any alcohol or drug abuse patient.[facility] the event this information is protected by the Federal Confidentiality of Alcohol and Drug Abuse Patient Records regulations: The Federal rules restrict any use of the information to criminally investigate or prosecute any alcohol or drug abuse patient.[facility]In the event this information is protected by the Federal Confidentiality of Alcohol and Drug Abuse Patient Records regulations: The Federal rules restrict any use of the information to criminally investigate or prosecute any alcohol or drug abuse patient.[facility]In the event this information is protected by the Federal Confidentiality of Alcohol and Drug Abuse Patient Records regulations: The Federal rules restrict any use of the information to criminally investigate or prosecute any alcohol or drug abuse patient.[facility]In the event this information is protected by the Federal Confidentiality of Alcohol and Drug Abuse Patient Records regulations: The Federal rules restrict any use of the information to criminally investigate or prosecute any alcohol or drug abuse patient.[facility]In the event this information is protected by the Federal Confidentiality of Alcohol and Drug Abuse Patient Records regulations: The Federal rules restrict any use of the information to criminally investigate or prosecute any alcohol or drug abuse patient.[facility] the event this information is protected by the Federal Confidentiality of Alcohol and Drug Abuse Patient Records regulations: The Federal rules restrict any use of the information to criminally investigate or prosecute any alcohol or drug abuse patient.[facility]In the event this information is protected by the Federal Confidentiality of Alcohol and Drug Abuse Patient Records regulations: The Federal rules restrict any use of the information to criminally investigate or prosecute any alcohol or drug abuse patient.[facility]In the event this information is protected by the Federal Confidentiality of Alcohol and Drug Abuse Patient Records regulations: The Federal rules restrict any use of the information to criminally investigate or prosecute any alcohol or drug abuse patient.[facility]In the event this information is protected by the Federal Confidentiality of Alcohol and Drug Abuse Patient Records regulations: The Federal rules restrict any use of the information to criminally investigate or prosecute any alcohol or drug abuse patient.[facility]In the event this information is protected by the Federal Confidentiality of Alcohol and Drug Abuse Patient Records regulations: The Federal rules restrict any use of the information to criminally investigate or prosecute any alcohol or drug abuse patient.[facility]In the event this information is protected by the Federal Confidentiality of Alcohol and Drug Abuse Patient Records regulations: The Federal rules restrict any use of the information to criminally investigate or prosecute any alcohol or drug abuse patient.[facility]In the event this information is protected by the Federal Confidentiality of Alcohol and Drug Abuse Patient Records regulations: The Federal rules restrict any use of the information to criminally investigate or prosecute any alcohol or drug abuse patient.[facility]In the event this information is protected by the Federal Confidentiality of Alcohol and Drug Abuse Patient Records regulations: The Federal rules restrict any use of the information to criminally investigate or prosecute any alcohol or drug abuse patient.[facility]In the event this information is protected by the Federal Confidentiality of Alcohol and Drug Abuse Patient Records regulations: The Federal rules restrict any use of the information to criminally investigate or prosecute any alcohol or drug abuse patient.[facility] Reason for Visit (unrecogniz ed section and content) Reason Comments Menstrual Problem irregular menses Reason Comments Care Reason Comments Abnormal Pap Reason Comments 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 Ultrasound Specialty Diagnoses / Procedures Referred By Obdulia t Referred To Contact [facility] Diagnoses Encounter to determine viability of , single or unspecified fetus Procedures OBSTETRIC ULTRASOUND WHI US PREG UTERUS AFTER 1ST TRIMEST GESTATION Maritza Richard APRN.CNM [address] [place] [address] [facility] [employer] [place] [address] Referral ID Status Reason Start Date Expiration Date V isits Requested Visits Authorized [id number] Closed Auto-Generate d Referral 02/18/2023 02/18/2024 1 1 Reason Onset Date Comments Care 03/25/2023 Reason Comments US Specialty Diagnoses / Procedures Referred By Contac t Referred To Contact [facility] Diagnoses 8 weeks gestation of Procedures NUCHAL TRANSLUCENCY WHI US NUCHAL TRANSLUCENCY 1ST GESTATION Maritza Richard APRN.CNM [address] [place] [address] [facility] [address] [place] [address] Referral ID Status Reason Start Date Expiration Date V isits Requested Visits Authorized [id number] Closed Auto-Generate d Referral 02/18/2023 02/18/2024 1 1 Reason Onset Date Comments Care 04/21/2023 Reason Onset Date Comments Care 05/26/2023 Specialty Diagnoses / Procedures Referred By Contac t Referred To Contact [facility] Diagnoses 15 weeks gestation of Procedures OBSTETRIC ULTRASOUND WHI US PREG UTERUS AFTER 1ST TRIMEST GESTATION Maritza Richard GALLERY OR MUSEUM CURATOR.CNM [address] [place] [address] [facility] [address] [place] [address] Referral ID Status Reason Start Date Expiration Date V isits Requested Visits Authorized [id number] Closed Auto-Generate d Referral 04/21/2023 04/20/2024 1 1 Reason Comments Breast Pump Reason Comments Orders Reason Onset Date Comments Care 06/23/2023 Specialty Diagnoses / Procedures Referred By Contac t Referred To Contact [facility] Diagnoses Encounter for follow-up ultrasound of anatomy Procedures OBSTETRIC ULTRASOUND WHI US PREG UTERUS AFTER 1ST TRIMEST GESTATION Dulce Shannon, GALLERY OR MUSEUM CURATOR.GARNETT ROOM WORKER [address] [place] [address] [facility] [address] [place] [address] Referral ID Status Reason Start Date Expiration Date V isits Requested Visits Authorized [id number] Closed Auto-Generate d Referral 06/14/2023 06/13/2024 1 1 Reason Comments OB - spotting Reason Onset Date Comments Care 07/12/2023 Reason Onset Date Comments Care 08/18/2023 Reason Onset Date Comments Care 09/01/2023 Reason Comments Results Reason Onset Date Comments Care 09/13/2023 Specialty Diagnoses / Procedures Referred By Contac t Referred To Contact [facility] Diagnoses Supervision of high risk in third trimester History of thyroid disease Procedures OBSTETRIC ULTRASOUND WHI US PREG UTERUS AFTER 1ST TRIMEST GESTATION Lon Aranda, GALLERY OR MUSEUM CURATOR.GARNETT ROOM WORKER [address] [place] [address] [facility] [address] [place] [address] Referral ID Status Reason Start Date Expiration Date V isits Requested Visits Authorized [id number] Closed Auto-Generate d Referral 09/01/2023 08/31/2024 5 [...] Care Teams (unrecognized sec tion and content) Bolting Machine Operator Relationship Specialty Start Date End Date [facility] Provider Psychiatry 10/05/19 Bolting Machine Operator Relationship Specialty Start Date End Date [facility] Provider Psychiatry 10/05/19 Bolting Machine Operator Relationship Specialty Start Date End Date [facility] Provider Psychiatry 10/05/19 Bolting Machine Operator Relationship Specialty Start Date End Date [facility] Provider Psychiatry 10/05/19 Bolting Machine Operator Relationship Specialty Start Date End Date [facility] Provider Psychiatry 10/05/19 Bolting Machine Operator Relationship Specialty Start Date End Date [facility] Provider Psychiatry 10/05/19 Bolting Machine Operator Relationship Specialty Start Date End Date [facility] Provider Psychiatry 10/05/19 Bolting Machine Operator Relationship Specialty Start Date End Date [facility] Provider Psychiatry 10/05/19 Bolting Machine Operator Relationship Specialty Start Date End Date [facility] Provider Psychiatry 10/05/19 Bolting Machine Operator Relationship Specialty Start Date End Date [facility] Provider Psychiatry 10/05/19 Bolting Machine Operator Relationship Specialty Start Date End Date [facility] Provider Psychiatry 10/05/19 Bolting Machine Operator Relationship Specialty Start Date End Date [facility] Provider Psychiatry 10/05/19 Bolting Machine Operator Relationship Specialty Start Date End Date [facility] Provider Psychiatry 10/05/19 Bolting Machine Operator Relationship Specialty Start Date End Date [facility] Provider Psychiatry 10/05/19 Bolting Machine Operator Relationship Specialty Start Date End Date [facility] Provider Psychiatry 10/05/19 Bolting Machine Operator Relationship Specialty Start Date End Date [facility] Provider Psychiatry 10/05/19 Bolting Machine Operator Relationship Specialty Start Date End Date [facility] Provider Psychiatry 10/05/19 [...] BE BASED ON THE PRIMARY CLINICAL RECORDS. [facility] [employer] [facility]. provides no warranty or guarantee of the accuracy or completeness of information in this document.
[2025-07-28] MEDS: hydrOXYzine PAM 25 MG Capsule 50 MG PO (10:31)
--- NOTE | 2025-07-28 15:22 | NURSING ---
in to see pt. pt found crying. pt verbalized anxiety about being seperated from her children and not being able to have contact with them. pt verbalized understand of the ramp agreement she signed but states she had a traumatic childhood and feels this is triggering her anxiety. pt verbalized she believes her kids are safe stating they are with her mother in law and their children. discussed goal of focusing on her recovery. pt agreeable to try something for anxiety and neurotin given.pt agreeable to talk with RAMP navigator on Master whom is on the unit. RAMP navigator updated on patient.
--- NOTE | 2025-07-28 15:58 | NURSING ---
Talked with Master and patient. aware patient wishes for Jaden significant other to be given updated. also discussed providing Jaden with the phone number to the unit directly so he can call and get updates from nurses. Talked with Jaden update and number provided. Jaden aware of RAMP agreement regarding contact and phone calls, he did states "kids are doing ok."
--- NOTE | 2025-07-28 16:46 | ADDICTION ---
Met with pt to complete RAMP assessments. Pt is struggling with using alcohol. She is agreeable to outpatient tx with psychiatry at [facility] and is willing to go to a walk-in assessment Wednesday at [facility].
[2025-07-29 02:02] VITALS: BP 123/79; PULSE 82; RESP 15; TEMP 36.7; O2SAT 98
[2025-07-29 08:06] LABS: AST(SGOT) 113 U/L (<=31); Alanine Aminotransfer ALT/SGPT 72 U/L (<=34); Albumin, Serum 3.8 g/dL (3.5-5.0); Alkaline Phosphatase 94 U/L (35-104); Anion Gap 13 (5-15); BUN 4 mg/dL (4-19); BUN/Creat Ratio 5.9 RATIO (10-20); Calcium,Total 8.2 mg/dL (7.6-11.0); Carbon Dioxide 20.6 mmol/L (21.0-32.0); Chloride 103 mmol/L (98-108); Estimated Creatinine Clearance 123.04 ml/min (50-250); Globulin 2.2 g/dL (2.2-4.2); Glucose 85 mg/dL (70-99); Potassium 3.4 mmol/L (3.3-5.1)
[2025-07-29] MEDS: Thiamine Hydrochloride 100 MG Tablet PO (08:24)
[2025-07-29 08:31] VITALS: BP 131/89; PULSE 72; RESP 17; TEMP 36.8; O2SAT 98
[2025-07-29 09:26] VITALS: BP 131/89; PULSE 72; RESP 18; TEMP 36.8; O2SAT 98
[2025-07-29] MEDS: hydrOXYzine PAM 25 MG Capsule 50 MG PO ×2 (09:57→18:25)
--- NOTE | 2025-07-29 10:41 | PCM.PROGNOTE ---
Subjective Subjective Patient seen and examined. She had no active complaints. She is not having any active withdrawal symptoms. Review of systems otherwise negative. She was seen with her nurse by her bedside. She is asking for full STD screening but does not want to know the results until she is discharged. She says she doesnt want residential treatment upon discharge, but is worried that she will be sent home without any withdrawal meds as [facility] told her that is what will be done before she follows up with them. SHe is trying to get an appointment with a psychiatrist to help with her PTSD and bipolar disorder. Review of systems otherwise negative. Objective Data Objective Data Vital Signs: Vital Signs Temp Pulse Resp BP Pulse Ox O2 Del Method 98.2 F 72 18 131/89 H 98 Room Air 07/29/25 09:26 07/29/25 09:26 07/29/25 09:26 07/29/25 09:26 07/29/25 09:26 07/29/25 09:26 Oxygen Delivery Method Room Air Weight: 179 lb 4 oz Body Mass Index (BMI) 28.0 Intake & Output: Intake and Output for Last 24 Hours 07/27/25 07/28/25 07/29/25 23:59 23:59 23:59 Intake Total 2300 / 2300 1000 / 1000 Balance 2300 / 2300 1000 / 1000 Lab / Micro Data 07/28/25 07:04 07/29/25 06:15 Labs: Laboratory Results - last 24 hr 07/29/25 06:15: Sodium 136, Potassium 3.4, Chloride 103, Carbon Dioxide 20.6 L, Anion Gap 13, BUN 4, Creatinine 0.74, Estim Creat Clear Calc 123.04, Est GFR (MDRD) Non-Af 113, BUN/Creatinine Ratio 5.9 L, Glucose 85, Calcium 8.2, Total Bilirubin 0.85, AST 113 H, ALT 72 H, Alkaline Phosphatase 94, Total Protein 6.0, Albumin 3.8, Globulin 2.2, Albumin/Globulin Ratio 1.7 Physical Exam Const alert, oriented x3 and no apparent distress General Appearance: cooperative HEENT normocephalic, head/scalp atraumatic, hearing grossly normal bilaterally and moist oral mucous membranes Eyes EOMs intact bilaterally and conjunctivae normal Neck supple and no JVD Resp normal respiratory effort, no retractions, no use of accessory muscles and clear to auscultation bilaterally Cardio regular rate, regular rhythm, S1 normal heart sound, S2 normal heart sound and no murmurs GI normal to inspection, nondistended, normoactive bowel sounds, soft to palpation, non-tender and non-distended Extremity normal to inspection, full ROM and no clubbing, cyanosis or edema Skin General Skin Exam: no breakdown Neuro oriented x3, moves all extremities and no focal motor deficits Sensorium / Orientation: awake and alert Motor Exam: strength 5/5 throughout Psych affect normal Mood & Affect: anxious Assessment & Plan Assessment/Plan (1) Alcohol dependence with withdrawal, uncomplicated: PLAN: Plan #Acute alcohol intoxication with risk of withdrawal Admit to [facility]. Admitted with nausea and vomiting. Serum alcohol level is less than 0.01. on alcohol withdrawal protocol with phenobarbital. Oral thiamine, folic acid and Multi-Jazzmine. Adjunctive meds for symptomatic relief. patient requesting a complete STD screen but says she does not want to know the results until she is discharged. #Elevated liver enzymes AST is 183 with ALT of 98 and ALP of 118. Total bilirubin is however only 0.67. Likely due to chronic alcohol use. 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 She has had this before during previous detox. 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 on p.o. pantoprazole 40 mg daily. Stool for occult blood pending. Hemoglobin today is 14.8. #History of bipolar disorder: Per patient she is not on any medication. Follow-up with PCP for referral for medication as needed. Says she is trying to make an appointment with a psychiatrist. DVT prophylaxis: Low risk. Encouraged to ambulate. Charges/Coding Visit Charges Inpatient E&M: 69903 Subs Hosp L2
[2025-07-29 11:48] LABS: HIV Nonreactive (Nonreactive); Hepatitis B Surface Antigen Nonreactive (Nonreactive); Hepatitis C Antibody Nonreactive (Nonreactive)
--- NOTE | 2025-07-29 12:25 | NURSING ---
brazer assembler documentation reviewed
[2025-07-29 17:12] VITALS: BP 130/82; PULSE 82; RESP 18; TEMP 36.6; O2SAT 99
[2025-07-29 21:24] VITALS: BP 124/94; PULSE 67; RESP 16; TEMP 37; O2SAT 97
[2025-07-30 02:49] VITALS: BP 110/66; PULSE 69; RESP 15; TEMP 37.2; O2SAT 98
[2025-07-30] MEDS: hydrOXYzine PAM 25 MG Capsule 50 MG PO (07:46)
[2025-07-30] MEDS: Thiamine Hydrochloride 100 MG Tablet PO (07:53)
[2025-07-30 07:58] VITALS: BP 121/80; PULSE 77; RESP 16; TEMP 36.6; O2SAT 98
--- NOTE | 2025-07-30 13:39 | NURSING ---
Pt left AMA
--- NOTE | 2025-07-30 14:43 | DS.PCM_ITS ---
Providers Date of Admission: 07/28/25 Date of Discharge: 07/30/25 Primary Care Physician: No Primary Care Phys Reason For Visit: ACUTE ALCOHOL DETOX WITH RISK OF OF WITHDRAWAL Diagnosis Discharge Diagnosis (1) Alcohol dependence with withdrawal, uncomplicated: Status: Acute Code(s): F10.230 - Alcohol dependence with withdrawal, uncomplicated Plan #Acute alcohol intoxication with risk of withdrawal * Admit to MedSurg. Admitted with nausea and vomiting. Serum alcohol level is less than 0.01. * on alcohol withdrawal protocol with phenobarbital. Oral thiamine, folic acid and Multi-Jazzmine. * Adjunctive meds for symptomatic relief. * patient requesting a complete STD screen but says she does not want to know the results until she is discharged. * #Elevated liver enzymes * AST is 183 with ALT of 98 and ALP of 118. Total bilirubin is however only 0.67. * Likely due to chronic alcohol use. Should improve with cessation of alcohol * #Probable alcoholic gastritis * Patient complained of some epigastric pain and also said he had dark stools and during her incessant vomiting had some streaks of blood. She has had this before during previous detox. 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 * on p.o. pantoprazole 40 mg daily. Stool for occult blood pending. * Hemoglobin today is 14.8. * #History of bipolar disorder: Per patient she is not on any medication. Follow- up with PCP for referral for medication as needed. Says she is trying to make an appointment with a psychiatrist. DVT prophylaxis: Low risk. Encouraged to ambulate. Medications at Discharge Home Medications NK 07/28/25 Hospital Course Operations None Procedures None Summary of Care Provided Minutes Spent on Discharge: 38 Hospital Course: LB TORO, is a 29 F with a PMH as outlined who presents via the ED on 07/28/2025 for acute alcohol detox. She was admitted with a complaint of nausea and vomitiing. She said she has intractable nausea and vomiting every time she tries withdrawing from alcohol. Also complained of dark stools. 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 She says she has been vomiting so frequently she had vomited up streaks of blood on a few occasions. Review of systems otherwise negative. States she had similar vomiting during her last detox when she was in a rehab facility. Vitals in the ED BP of 128/94, OR of 71, RR of 16 and temp of 98.1F. She was saturating at 98% on room air. CBC showed Hb of 14.8, wbc of 7.5 and platelets of 229. Chemistry showed sodium of 139 with potassium of 3.8 and bicarb of 22.7. Creatinine was 0.7. Total bilirubin was 0.67 with AST of 183, ALT of 98 and ALP of 118. Lipase was 14. Serum alcohol level was less than 10. She was admitted to be managed for acute alcohol detox with risk of withdrawal. She was started on alcohol withdrawal protocol with phenobarbital. He tolerated the detox protocol for 2 days. Patient requested to complete STD panel but said he did not want to know the results until she was discharged due to anxiety and bipolar disorder. Patient was initially hesitant about being discharged home as she said she had been told by [facility] that she would not be given any medications on discharge and this was very concerning to her due to her fear of relapsing to drinking again. However on 07/30/2025 patient opted to sign out AGAINST MEDICAL ADVICE despite being counseled that it would be advisable for her to complete at least a 3-day detox process. She however signed out AGAINST MEDICAL ADVICE on 07/30/2025. Patient was seen and examined prior to discharge. Patient was seen and examined on the morning of the day she signed out AGAINST MEDICAL ADVICE. She asked to be discharged but was told that she needed to complete at least a 3-day detox protocol. She still did not want to know about her CT results at that time. Labs and vitals reviewed. Home medication reviewed and reconciled. Of note hepatitis B&C as well as HIV screen were all negative. Physical Exam Const alert, oriented x3 and no apparent distress General Appearance: cooperative and comfortable HEENT normocephalic, head/scalp atraumatic, hearing grossly normal bilaterally and moist oral mucous membranes Mouth: oral and palatal mucosa normal Eyes EOMs intact bilaterally and conjunctivae normal Neck supple and no JVD Resp normal respiratory effort, no retractions, no use of accessory muscles and clear to auscultation bilaterally Cardio regular rate, regular rhythm, S1 normal heart sound, S2 normal heart sound and no murmurs GI normal to inspection, nondistended, normoactive bowel sounds, soft to palpation, non-tender and non-distended Extremity normal to inspection, full ROM and no clubbing, cyanosis or edema Skin General Skin Exam: no breakdown Neuro oriented x3, moves all extremities and no focal motor deficits Sensorium / Orientation: awake and alert Motor Exam: strength 5/5 throughout Psych Mood & Affect: anxious Weight / BMI Weight Weight: 179 lb 4 oz Body Mass Index (BMI) 28.0 ABG / Lab / Microbiology Data 07/28/25 07:04 07/29/25 06:15 Microbiology: Microbiology 07/29/25 11:48 Urine, Clean Catch Chlamydia/Neisseria (PCR) - Final D/C Instructions DC O2, CPAP, BIPAP Needs Home O2 Discharge instructions: No Meaningful Use Info Meaningful Use Meaningful Use Diagnoses (Choose all that apply): None applicable Discharge Plan Admission Admit Date/Time: 07/28/25 08:12 Primary Reason for Your Visit: acute alcohol withdrawal Attending Provider: Melissa Burton Primary Care Provider: Care Physician,No Primary Discharge Orders/Prescriptions Prescriptions: No Action NK Referrals / Follow Up: Care Physician,No Primary [Primary Care Provider, Medical] Disposition Disposition (needs filled in before D/C Order can be placed): Against Medical Advice Charges/Coding Visit Charges Inpatient E&M: 95235 Disch Hosp >30min
== END 2025-07-30 13:32 | disposition left against medical advice (07) ==
LOC: ED 07:58 → MS3 09:53
PROVIDERS: Admitting Provider Student in an Organized Health Care Education/Training Program; Emergency Provider Emergency Medicine; Visit Provider Student in an Organized Health Care Education/Training Program
DX: F10.239 Alcohol dependence with withdrawal, unspecified (principal); F31.9 Bipolar disorder, unspecified; K29.21 Alcoholic gastritis with bleeding; F17.210 Nicotine dependence, cigarettes, uncomplicated; F17.290 Nicotine dependence, other tobacco product, uncomplicated; Z11.3 Encounter for screening for infections with a predominantly sexual mode of transmission; R74.8 Abnormal levels of other serum enzymes; Y90.0 Blood alcohol level of less than 20 mg/100 ml
CPT/HCPCS: 36415; 80053; 80307; 81001; 81025; 82010; 82077; 83690; 85025; 85610; 86703; 86706; 86803; 87340; 87491; 87591; 96365; 96375; 97802; 99221; 99284; A4216; G0378; J2405